=== PATIENT | male | born 1960 | race Caucasian/White ===

== ENCOUNTER 2016-12-02 14:46 | Inpatient (IN) | payer OTHER, MEDICARE ==
[~2016-12-02] VITALS: Ht 195.6 cm; Wt 108.9 kg
--- NOTE | 2016-12-02 15:08 | NUR ---
PT TO ED WITH SISTER FOR C/O ? R FOOT INFECTION. PT IS BEING FOLLOWED BY VISITING NURSE AND THINKS PT MAY HAVE INFECTION. PT DENIES ANY PAIN TO RIGHT FOOT. 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 AFEBRILE.
--- NOTE | 2016-12-02 15:53 | ED ANKLE/FOOT INJURY COMPLAINT ---
History of Present Illness General Chief Complaint: Lower Extremity Problems Stated Complaint: RIGHT FOOT ?INFECTION Source: patient Exam Limitations: no limitations Vital Signs & Intake/Output Vital Signs & Intake/Output Vital Signs Date Time Temp Pulse Resp B/P Pulse O2 O2 Flow FiO2 Ox Delivery Rate 12/02 1503 97.4 88 20 137/76 97 Room Air Allergies Coded Allergies: erythromycin base (UNKNOWN 12/02/16) Reconcile Medications Alprazolam 0.5 MG TABLET 1 TAB PO Q4-6H PRN ANXIETY (Reported) Atazanavir Sulfate (Reyataz) 300 MG CAPSULE 1 CAP PO QAM ANTIVIRAL (Reported) with food Atazanavir Sulfate (Reyataz) 300 MG CAPSULE 1 CAP PO QAM ANTIVIRAL (Reported) with food Gabapentin 300 MG CAPSULE 1 CAP PO TID UNKNOWN (Reported) Lamivudine (Epivir) 150 MG TABLET 1 TAB PO DAILY ANTIVIRAL (Reported) Oxycodone HCl (Oxycodone HCl ER) 40 MG TAB.ER.12H 1 TAB PO Q12H PAIN ( Reported) Oxycodone HCl 30 MG TABLET 1 TAB PO Q4-6H PRN PAIN (Reported) Ritonavir (Norvir) 100 MG CAPSULE 1 CAP PO DAILY ANTIVIRAL (Reported) Trazodone HCl 100 MG TABLET 2 TAB PO QPM UNKNOWN (Reported) Triage Note: PT TO ED WITH SISTER FOR C/O ? R FOOT INFECTION. PT IS BEING FOLLOWED BY VISITING NURSE AND THINKS PT MAY HAVE INFECTION. PT DENIES ANY PAIN TO RIGHT FOOT. 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 AFEBRILE. Triage Nurses Notes Reviewed? yes HPI: 56-year-old male comes into emergency room with open wound to right foot this been going on for a long time ago worse over the past week. Patient reports that he was getting it managed by wound care in-house and then his significant other was taking care of it. Wound got progressively worse over the past week with a new nurse. Foul-smelling discharge. Denies any fevers. Patient has a history of HIV. Nothing seems to make the symptoms better or worse. Denies any other associated symptoms. Past History Travel History Traveled to [place] past 21 day No Medical History Any Pertinent Medical History? see below for history Musculoskeletal: BACK ISSUES Blood Disorders: HIV Surgical History Surgical History: [facility] Psychosocial History What is your primary language Samoan Tobacco Use: Current Daily Use Daily Tobacco Use Amount/Type: => 5 Cigarettes daily ETOH Use: denies use Illicit Drug Use: denies illicit drug use Family History Hx Contributory? No Review of Systems Review of Systems Constitutional: Reports: no symptoms. EENTM: Reports: no symptoms. Respiratory: Reports: no symptoms. Cardiovascular: Reports: no symptoms. GI: Reports: no symptoms. Genitourinary: Reports: no symptoms. Musculoskeletal: Reports: see HPI. Skin: Reports: see HPI. Neurological/Psychological: Reports: no symptoms. Hematologic/Endocrine: Reports: no symptoms. Immunologic/Allergic: Reports: no symptoms. All Other Systems: Reviewed and Negative Physical Exam Physical Exam General Appearance: well developed/nourished, mild distress, foul smell Head: atraumatic Eyes: Bilateral: normal appearance. Ears, Nose, Throat: normal ENT inspection, hearing grossly normal Neck: normal inspection Cardiovascular/Respiratory: no respiratory distress Back: normal inspection Leg/Knee/Thigh Left: [facility] Foot Right: open wound right foot ( 6 cm by 6 cm) ,foul-smelling discharge, some warmth to the foot, located over the Neuro/Vascular: cool skin, skin shiny, Psychiatric: awake, alert, oriented x 3 Skin: intact, normal color, warm/dry Progress Differential Diagnosis: fracture, dislocation, sprain, contusion, osteomyelitis, cellulitis Plan of Care: Orders Procedure Date/time Status Misc Message 12/02 172 Active ED Holding Orders 12/02 1727 Active Admit to inpatient 12/02 1727 Active Vital Signs 12/02 172 Active Code Status 12/02 172 Active Patient Data 12/02 1725 Active BLOOD CULTURE 12/02 1553 Active WESTERGREN SED RATE 12/02 1553 Active C-REACTIVE PROTEIN 12/02 1553 Complete COMPREHENSIVE METABOLIC PANEL 12/02 1553 Complete CBC WITHOUT DIFFERENTIAL 12/02 1553 Active Current Medications Sig/Puma Start time Last Medication Dose Stop Time Status Admin Sodium Chloride 1,000 ML ONCE ONE 12/02 1730 AC (Normal Saline 0.9%) 12/03 0009 Ampicillin Sodium/ 3,000 MG ONCE ONE 12/02 1715 CAN Sulbactam Sodium 12/02 1744 (Unasyn) Sodium Chloride 100 ML (Normal Saline 0.9%) Laboratory Tests 12/02/16 1602: Anion Gap 11, Estimated GFR 27 L, BUN/Creatinine Ratio 10.4, Glucose 107 H, Calcium 8.7, Total Bilirubin 1.4 H, AST 39, ALT 28, Alkaline Phosphatase 95, C- Reactive Prot, Quant 1.4 H, Total Protein 8.0, Albumin 3.5, Globulin 4.5 H, Albumin/Globulin Ratio 0.8 L, CBC w Diff NO MAN DIFF REQ, RBC 4.13 L, MCV 101.9 H, MCH 34.4 H, RDW 16.3 H, MPV 8.0, Gran % 57.0, Lymphocytes % 33.1, Monocytes % 7.5, Eosinophils % 2.0, Basophils % 0.4, Absolute Granulocytes 3.7, Absolute Lymphocytes 2.2, Absolute Monocytes 0.5, Absolute Eosinophils 0.1, Absolute Basophils 0, PUBS MCHC 33.8, ESR Westergren Pending Microbiology 12/02 1632 BLOOD: Blood Culture - RECD 12/02 1602 BLOOD: Blood Culture - RECD Diagnostic Imaging: Viewed by Me: Radiology Read. Discussed w/RAD: Radiology Read. Radiology Impression: SERVICE DATE: 12/02/16 EXAM TYPE: RAD - XRY-ANKLE 3 OR MORE VIEWS R; XRY-FOOT COMPLETE, R EXAMINATION: 1. RIGHT FOOT. 2. RIGHT ANKLE. CLINICAL INFORMATION: Open wound right foot. Swelling. Pain. Concern for osteomyelitis. COMPARISON: None. TECHNIQUE: 1. Right foot. 3 views 2. Right ankle. 3 views. FINDINGS: 1. Right foot. No focal bone lesion. No bone destruction. No periosteal reaction. No radiographic evidence for osteomyelitis. No radiopaque foreign body or air in the soft tissues of the foot. 2. Right ankle. No focal bone lesion. No periosteal reaction. No radiographic evidence for osteomyelitis. Joint space is maintained. IMPRESSION: 1. Right foot. No acute abnormality. No evidence of osteomyelitis. 2. Right foot. No acute abnormality. No evidence of osteomyelitis. If clinical concern remains consider MRI. Departure Departure Disposition: STILL A PATIENT Condition: Stable Clinical Impression Primary Impression: Acute renal failure Secondary Impressions: Cellulitis of right foot, Open wound of foot Referrals: DIANA WHITT MD (PCP/Family) Departure Forms: Customer Survey General Discharge Information Admission Note Spoke With: JUAN SILVA MD Documentation of Exam: Documentation of any treatments & extenuating circumstances including Concerns Regarding Discharge (functional status, medication knowledge or non-compliance, living conditions, etc.) that warrant an admission rather than observation: Patient will require wound care. Likely wound debridement. Podiatry consultation. Possibly MRI of foot. Patient will likely end up requiring IV antibiotics. IV fluids. Renal consultation.
[2016-12-02 16:17] LABS: ABSOLUTE BASOPHIL COUNT 0 /CUMM (0.0-0.2); ABSOLUTE EOSINOPHIL COUNT 0.1 /CUMM (0.0-0.7); ABSOLUTE GRANULOCYTE CT 3.7 /CUMM (1.4-6.5); ABSOLUTE LYMPH COUNT 2.2 /CUMM (1.2-3.4); ABSOLUTE MONOCYTE COUNT 0.5 /CUMM (0.10-0.60); BASOPHIL % 0.4 % (0.0-2.0); HEMATOCRIT 42.1 % (42-52); MEAN CORPUSCULAR HGB 34.4 PG (27.0-31.0); MEAN CORPUSCULAR HGB CONC 33.8 G/DL (33.0-37.0); MEAN CORPUSCULAR VOLUME 101.9 FL (80.0-94.0); PLATELET COUNT 150 /CUMM (130-400); RBC DISTRIBUTION WIDTH 16.3 % (11.5-14.5); RED BLOOD CELL CT 4.13 /CUMM (4.70-6.10); WHITE BLOOD CELL COUNT 6.5 /CUMM (4.8-10.8)
--- NOTE | 2016-12-02 16:17 | NUR ---
56 YEAR OLD MALE TO ER WITH HIS FAMILY FOR EVALUATION OF WOUND TO HIS R HEEL, PT HAS HISTORY OF MRSA TO LLE AND HAD A BKA , PT DENIES HISTORY OF DIABETES AND STATES THAT HE GETS WOUNDS DUE TO HIS HIV. PT NOTED WITH DRESSING IN PLACE TO R FOOT, WITH YELLOW DRAINAGE AND STRONG FOUL ODOR , WHEN DRESSING REMOVED PT NOTED WITH STAGE 4 WOUND , 6CM X 6CM AND SKIN DRY AND FLAKING AROUND IT, FAMILY STATES THAT A VISITING NURSE HAS BEEN COMING OUT TO DO DRESSING CHANGES AND DID NOT SAY ANYTHING WAS WRONG WITH THE WOUND. PT UNSURE OF THE MEDS THAT HE TAKES AT HOME BUT STATES THAT HE TAKES ALL HIS MEDS ORDERED. [facility] CALLED AT THIS TIME TO REQUEST THEY FAX OVER A LIST OF PTS MEDS AND DOSES
--- NOTE | 2016-12-02 16:35 | NUR ---
LAV SENT TO LAB
--- NOTE | 2016-12-02 17:22 | RADIOLOGY REPORT ---
EXAMINATION: 1. RIGHT FOOT. 2. RIGHT ANKLE. CLINICAL INFORMATION: Open wound right foot. Swelling. Pain. Concern for osteomyelitis. COMPARISON: None. TECHNIQUE: 1. Right foot. 3 views 2. Right ankle. 3 views. FINDINGS: 1. Right foot. No focal bone lesion. No bone destruction. No periosteal reaction. No radiographic evidence for osteomyelitis. No radiopaque foreign body or air in the soft tissues of the foot. 2. Right ankle. No focal bone lesion. No periosteal reaction. No radiographic evidence for osteomyelitis. Joint space is maintained. IMPRESSION: 1. Right foot. No acute abnormality. No evidence of osteomyelitis. 2. Right foot. No acute abnormality. No evidence of osteomyelitis. If clinical concern remains consider MRI.
[2016-12-02] MEDS ORDERED: OXYCODONE HCL E40 MG PO (17:25)
[2016-12-02] MEDS ORDERED: OXYCODONE HCL30 M1 PO (17:28)
[2016-12-02] MEDS ORDERED: ALPRAZOLAM0.5 M4 PO (17:28)
[2016-12-02] MEDS ORDERED: TRAZODONE HCL100 M1 PO (17:29)
[2016-12-02] MEDS ORDERED: GABAPENTIN300 M2 PO (17:31)
[2016-12-02] MEDS ORDERED: NORVIR100 M2 PO (17:32)
[2016-12-02] MEDS ORDERED: EPIVIR150 MG PO (17:32)
[2016-12-02] MEDS ORDERED: REYATAZ300 MG PO (17:33)
[2016-12-02] MEDS ORDERED: ABACAVIR300 MG PO (17:37)
[2016-12-02] MEDS ORDERED: LACTULOSE10 GM/153 PO (17:38)
--- NOTE | 2016-12-02 18:04 | History & Physical ---
ALYSSIA [facility] 12/02/16 1803: General Information and HPI MD Statement: I have seen and personally examined DEIRDRE STEINER JR and documented this H&P. The patient is a 56 year old M who presented with a patient stated chief complaint of right foot ulcer pain and discharge. Source of Information: patient, family, old records Exam Limitations: no limitations, unable to give history, clinical condition History of Present Illness: Mr Steiner s a 56-year-old gentleman with past medical history of left below-knee amputation for MRSA infection in 2000, Anxiety, HIV (currently on ritonavir], hepatitis B and a history of chronic ulcers who presented to the emergency department on 12/02/2016 with right foot ulcer which has been worsening over the last week. The patient has had this ulcer for the last 3 months. 2 months ago patient was recently sent home from [facility] and has had a visiting nurse visits every other day. Approximately 3 weeks ago the patient's sister reported that she looked at the ulcer on the patient's right foot and noticed that it was dry, necrotic however had no signs of infection or any drainage present. Last week on Friday11/29/2016 the visiting nurse called the sister the patient and reported that this foot ulcer had now began to get discolored and drain purulent material. The cyst of the patient received this message yesterday and subsequently brought the patient to the emergency department today for additional workup and care. Owing to a history of extensive back surgery the patient does self catheterize on a daily basis. The sister reports that the patient ran out of catheters and subsequently had multiple episodes of urinary incontinence. The patient denies any fever, chills, nausea, vomiting although states that over the last 2 weeks he has continued to feel lethargic and malaise. He sister reports that the patient has Had a decrease in energy. Part of the medical history was obtained in correlation and combination from the patient's sister Norah who brought him into the emergency department. Allergies/Medications Allergies: Coded Allergies: erythromycin base (UNKNOWN 12/02/16) Home Med list Abacavir Sulfate (Abacavir) 300 MG TABLET 2 TAB PO DAILY ANTIVIRAL (Reported) Alprazolam 0.5 MG TABLET 1 TAB PO Q4-6H PRN ANXIETY (Reported) Atazanavir Sulfate (Reyataz) 300 MG CAPSULE 1 CAP PO QAM ANTIVIRAL (Reported) with food Gabapentin 300 MG CAPSULE 1 CAP PO TID UNKNOWN (Reported) Lactulose 10 GRAM/15 ML SOLUTION 15 ML PO EOD PRN UNKNOWN (Reported) Lamivudine (Epivir) 150 MG TABLET 1 TAB PO DAILY ANTIVIRAL (Reported) Oxycodone HCl (Oxycontin) 40 MG TAB.ER.12H 1 TAB PO BID CHRINIC PAIN ( Reported) Oxycodone HCl 30 MG TABLET 1 TAB PO Q4-6H PRN PAIN (Reported) Ritonavir (Norvir) 100 MG CAPSULE 1 CAP PO DAILY ANTIVIRAL (Reported) Trazodone HCl 100 MG TABLET 2 TAB PO QPM UNKNOWN (Reported) Compliance With Home Meds: POOR Past History Travel History Traveled to [place] past 21 day No Medical History Musculoskeletal: BACK ISSUES Blood Disorders: HIV Active MRSA Infection: No Isolation History: Contact Surgical History Surgical History: LBKA Past Family/Social History Psychosocial History Where do you live? Home Who Do You Live With? self Services at Home: Nursing Primary Language: South African Smoking Status: Heavy Tobacco Smoker ETOH Use: denies use Illicit Drug Use: denies illicit drug use Functional Ability ADLs Independent: dressing, eating, toileting, bathing. Ambulation: independent IADLs Independent: shopping, housework, finances, food prep, telephone, transportation , medication admin. Review of Systems Review of Systems Constitutional: Reports: see HPI, malaise, weakness. Denies: chills, diaphoresis, fever. EENTM: Reports: blurred vision, double vision, visual changes (Recent Cataract on the Left), eye pain. Cardiovascular: Denies: chest pain, edema, orthopena, palpitations. Respiratory: Reports: cough, sputum production. Denies: hemoptysis, orthopnea, short of breath. GI: Reports: abdominal pain. Denies: bloating, constipation, diarrhea, distention, bowel incontinence, melena, nausea, bloody stool, changes in stool, vomiting. Genitourinary: Reports: see HPI, pain. Denies: discharge, dysuria, frequency. Exam & Diagnostic Data Last 24 Hrs of Vital Signs/I&O Vital Signs Date Time Temp Pulse Resp B/P Pulse O2 O2 Flow FiO2 Ox Delivery Rate 12/02 2056 97.3 86 18 120/84 96 Nasal 2.0L Cannula 12/03 1831 97.0 88 18 113/73 95 Nasal 2.0L Cannula 12/02 1831 97.1 86 16 90/72 95 Nasal 2.0L Cannula 12/02 1503 97.4 88 20 137/76 97 Room Air Intake & Output 12/02 1600 12/02 0800 12/02 0000 Intake Total Output Total Balance Patient 108.862 kg Weight Physical Exam General Appearance Alert, Oriented X3, Mild Distress, Patient was dhaval somnolent Skin No Rashes, No Breakdown HEENT PERRLA, Left Eye Cataract, Mucous Membranes Dry Neck Supple Lymphatic Cervical nl Cardiovascular Regular Rate, Normal S1, Normal S2 Lungs Decreased Breath Sounds Bilaterally Abdomen Normal Bowel Sounds, Soft, No Tenderness Neurological Normal Speech, Sensation Intact Extremities No Edema, RIght Foot Ulcer. Approximately 6 cm X 6 cm. Right Femoral Ulcred 2 cm X 4 cm., Back Scar approximately 12 cm. Non Tender. Thoracic /Lumbar Region Reproductive (MALE) Bilaterral Inner Thigh Excoriations. Erythema and tenderness Last 24 Hrs of Labs/Attila: Laboratory Tests 12/02/162044: Hemoglobin A1c Pending, Lactic Acid 1.5, HIV 1&2 RNA (PCR) Pending, Methadone Screen Pending, Barbiturate Screen Pending, Ur Phencyclidine Scrn Pending, Amphetamines Screen Pending, U Benzodiazepines Scrn Pending, Urine Cocaine Screen Pending, Urine Cannabis Screen Pending, Urine Color STRAW, Urine Clarity TURBD H, Urine pH 6.0, Ur Specific [place] 1.025, Urine Protein 100 H, Urine Ketones NEG, Urine Nitrite POS H, Urine Bilirubin NEG, Urine Urobilinogen 0.2, Ur Leukocyte Esterase LARGE H, Ur Microscopic SEDIMENT EXAMINED, Urine WBC PACKD H, Micro UA Comment MORE INFO: H, Urine Hemoglobin MOD H, Urine Glucose NEG 12/02/16 1939: Methadone Screen Cancelled, Barbiturate Screen Cancelled, Ur Phencyclidine Scrn Cancelled, Amphetamines Screen Cancelled, U Benzodiazepines Scrn Cancelled, Urine Cocaine Screen Cancelled, Urine Cannabis Screen Cancelled, Urine Color Cancelled, Urine Clarity Cancelled, Urine pH Cancelled, Ur Specific [place] Cancelled, Urine Protein Cancelled, Urine Ketones Cancelled, Urine Nitrite Cancelled, Urine Bilirubin Cancelled, Urine Urobilinogen Cancelled, Ur Leukocyte Esterase Cancelled, Ur Microscopic Cancelled, Urine Hemoglobin Cancelled, Urine Glucose Cancelled 12/02/16 1602: Anion Gap 11, Estimated GFR 27 L, BUN/Creatinine Ratio 10.4, Glucose 107 H, Calcium 8.7, Total Bilirubin 1.4 H, Direct Bilirubin 0.7 H, AST 39, ALT 28, Alkaline Phosphatase 95, C-Reactive Prot, Quant 1.4 H, Total Protein 8.0, Albumin 3.5, Globulin 4.5 H, Albumin/Globulin Ratio 0.8 L, Vitamin B12 847, Folate 8.4, TSH 0.884, CBC w Diff NO MAN DIFF REQ, RBC 4.13 L, MCV 101.9 H, MCH 34.4 H, RDW 16.3 H, MPV 8.0, Gran % 57.0, Lymphocytes % 33.1, Monocytes % 7.5, Eosinophils % 2.0, Basophils % 0.4, Absolute Granulocytes 3.7, Absolute Lymphocytes 2.2, Absolute Monocytes 0.5, Absolute Eosinophils 0.1, Absolute Basophils 0, PUBS MCHC 33.8, ESR Westergren 83 H, Hepatitis A IgM Ab Pending, Hep Bs Antigen Pending, Hep B Core IgM Ab Conf Pending, Hepatitis C Antibody Pending Microbiology 12/02 1632 BLOOD: Blood Culture - RECD 12/02 1602 BLOOD: Blood Culture - RECD Assessment/Plan Assessment: This is a 56-year-old gentleman with extensive past medical history was presented with chronic right lower extremity ulcer, which has become purulent and draining over the last 48-72 hours. Chronic right heel ulcer. Initial x-ray ruled out osteomyelitis however if ESR is elevated consider MRI for additional sensitivity and specificity imaging study. Consider podiatry consult in a.m, patient may require debridement. Consider infectious disease consult in a.m, if patient is febrile. Wound consultation for recommendations on adequate wound care. Maintain patient off antibiotics for now. If patient becomes febrile or has no elevated white cell count consider broad-spectrum antibiotic coverage likely vancomycin. #Chronic back pain The patient who does have a reported chronic back pain needs to be adequately managed on home pain medications. Confirm medications in a.m. Monitor blood cultures. If positive for staph aureus consider potential infection of vertebral body due to hematogenous spread. If patient is positive forostemyleitis may require 6 weeks of antibiotic coverage. #Altered mental status Likely due to medication versus drugs of abuse, versus acute infectious process occurring. UA and U tox. Hold all narcotic pain medications due to decreased mentation and somnolence. Follow-up ammonia level. Initial lactic acid was Acute kidney injury Likely due to decreased by mouth intake. Continue aggressive hydration with normal saline. BEP in a.m. If creatinine fails to improve consider nephrology consult. On admission the patient did have a [place] catheter. Consider Mcgregor catheter. Was patient more stable can consider straight cath protocol. History of cough Lower respiratory culture Incentive spirometer. TRC nebs. Chest x-ray to rule out atelectasis versus consolidation versus intra- pulmonology pathology. Consider pulmonology consult in a.m. if above imaging studies are Suggestive for infection. History of anxiety Continue alprazolam 0.5 mg. Previous multiple hospitalizations a year. Obtain records from [place] in a.m. Confirm medications in a.m. from [facility]. DVT prophylaxis Heparin subcutaneous Code full code As Ranked By This Provider Problem List: 1. Acute renal failure 2. Open wound of foot 3. Cellulitis of right foot 4. HIV (human immunodeficiency virus infection) Core Measures/Miscellaneous Acute Coronary Syndrome ACS Diagnosis: No Cerebrovascular Accident CVA/TIA Diagnosis: No Congestive Heart Failure CHF Diagnosis: No Venous Thromboembolism VTE Risk Factors: Age > 40 No Mech VTE prophylaxis d/t: Amputee No VTE Pharm Prophylaxis d/t: No contraindications, Renal impairment VTE Diagnosis: No VTE Type: NONE VTE Confirmed by (Test): NONE Severe Sepsis Severe Sepsis Present: No Septic Shock Septic Shock Present: No Miscellaneous Documentation Attending Case Discussed With: WAN SANDOVAL MD Primary Care Physician: DIANA WHITT MD Patient sees these Specialists NA Level of Patient Care: General Medicine SRI SINGLETON 12/02/16 1823: Resident Review Statement Resident Statement: examined this patient, discussed with agriculture internship, agreed with agriculture internship, discussed with family, reviewed EMR data (avail), discussed with nursing , discussed with case mgmt, reviewed images, amended to note Other Findings: 56-year-old male with a past medical history of HIV, hepatitis C status post treatment with Harvoni, chronic back pain status post back surgery, history of osteomyelitis status post below-knee amputation of the left knee presented to the ED with chief complaint of infection in his right heel. According to the patient and his sister, Mr. Steiner got discharged from [facility] in [place] about 3 months ago. Apparently last spring, he was evaluated for an ulcer on his right heel for osteomyelitis RT heel at [facility]. According to the sister he underwent a bone biopsy at the elbow at that time and it was deemed that he did not have ostial. However he ended up getting chronic ulcer after they drilled the bone far deeply. That wound was healing pretty nicely since. She states that her brother move to the [place] about 3 months ago and had a visiting nurse come to his house every other day. She last saw this wound 2 weeks ago at which time it was dry with a scab on it and the surrounding area had a white scab that was peeling off. This past Friday she received a call from the patient's visiting nurse stating that the ulcer was draining pus and had a bad odor to it. Patient denies any fever, chills, history of fall or hurting his leg. The sister however does state that Mr. Heard fell about a week and a half ago and had a rug burn on his lateral right thigh. Of note Mr. Heard has not been feeling himself for about 2 weeks now he states that he is increasingly tired and somnolent. As far as his HIV, he's been followed up by her primary care physician and last saw her about a month ago and was told that his blood work and everything looked normal. He also self catheterizes himself most likely secondary to back surgery that he had about 21 years ago. According to the sister Mr. Heard is not followed up by any vascular surgeon and does not have any vascular issues. Past surgical history is pertinent for a left below-knee amputation secondary to osteomyelitis from MRSA, back surgery about 21 years ago. Family history is pertinent for stroke and heart attack in his father at the age of 68 as well as massive heart attack in his mother at the age of 61. He is allergic to azithromycin Social history is pertinent for smoking cigarettes 1 pack a day. He denies illicit drug use and/or ethanol use. Of note patient was admitted at [facility] last year for a kidney infection details of which are unknown however he denies having any procedures on her stents placed. He also was seen for cataract surgery for his left eye and has a length placed which needs to be removed by an invoice control clerk. Physical exam he is lethargic, drowsy but arousable. HEENT reveals corneal haziness on the left in the left eye, right pupil is reactive to light but has Fredy is. He also has dry mucous membranes. Examination of the neck did not reveal any JVD or tobacco lymphadenopathy. Cardiovascular exam revealed normal S1, S2 2, regular pulse no murmurs appreciated. Respiratory exam revealed chest clear to auscultation bilaterally with decreased breath sounds bilaterally, no rales crackles or rhonchi appreciated. Abdominal exam was benign with abdomen soft, nontender, nondistended however there was fungal infection in the inguinal folds. Examination of the left lower extremity revealed below-knee amputation as well as 4 cm ulcer located around the left posterior-lateral aspect of the left . Examination of the right lower extremity revealed 2 stage II ulcers located along the posterior-lateral aspect of the right thigh measuring about 4 cm x 5 cm with purulent drainage from one of the ulcers and a scab on the other 1. Examination of the right foot revealed a 6 cm x 6 cm purulent draining chronic ulcer that is also foul-smelling. There is chronic venous stasis changes in the right lower extremity with multiple areas of excoriation. There isn't other healed decubitus ulcer located along the sacrum, along with of 5 cm x 4 cm healed decubitus ulcer located along the lateral aspect of the gluteal area. Labs were pertinent for an H&H of 14.2/42.1, normal white blood cell count of 6500, elevated MCV of 101.9 and a platelet count of 150,000. Serum chemistries revealed a sodium of 142/potassium of 3.6, BUN 26, creatinine 2.5 going through previous records reveals that his creatinine is around 1.5-1.6. LFTs were remarkable for an elevated total bili 1.4, AST/ALT of 39/28 and alkaline phosphatase of 95. C-reactive protein elevated to 1.4. X-ray of the right foot and ankle did not show any evidence of osteomyelitis. In the ER he received a normal saline bolus. Assessment and plan #Chronic right heel ulcer Most likely secondary to osteomyelitis from ??PVD Hunt off antibiotics for now Bone scan in morning and podiatry consult with Dr. George. Consider ID consult in a.m. Wound consult in a.m. Optimize pain management with morphine 2 mg every 4 hours when necessary Follow-up blood cultures 2 Consider getting an US Doppler of lower extremity #Altered mental status Most likely secondary to osteomyelitis versus overdosage of pain medications versus urinary tract infection versus pneumonia given patient has cough Check UA, U tox Follow-up ammonia level and lactic acid level Follow-up chest x-ray, lower respiratory culture #History of HIV and hepatitis C follow-up hepatitis panel, PCR for HIV and/or viral load. Medications need to be confirmed for his HIV. Please reconcile meds in a.m. #Macrocytic anemia We'll check for TSH, B12 and folic acid #AK I on CKD Most likely secondary to decreased by mouth intake versus HIV medications versus obstructive uropathy Hydrate with IV fluids for now and follow-up BEP in a.m. Place him on straight catheterization Protocol [place] renal ultrasound if BEP fails to improve. Avoid nephrotoxic agents for now. Strict is and os #Fungal skin infection On nystatin #DVT prophylaxis Heparin 5000 international units 3 times a day subcutaneous Diet Regular CODE STATUS Full code JAIME [facility]LE, [facility] 12/02/16 1850: Attending MD Review Statement Attending Statement Attending MD Statement: examined this patient, discuss w/resident/PA/WEB CONTENT EXECUTIVE, agreed w/resident/PA/WEB CONTENT EXECUTIVE Attending Assessment/Plan: 56 yo M smoker with h/o HIV on Ritonavir+Atazanavir+Abacavir, Hep C s/p Harvoni Rx, Left BKA s/p MRSA osteomyelitis (2000), CKD stage 3A, chronic back pain on opiates, chronic nonhealing ulcer to right heel, is brought in for evaluation of worsening infection of the right heel. According to sister, the right heel wound has been evaluated at [facility] (2015), negative for osteomyelitis and was treated with antibiotics after debridement. This was slowly heeling, however in the past 3 days the visiting RN noticed foul smelling discharge/ pus draining from the wound. Over past 2 weeks, patient has been weak, lethargic, poor appetite and not keeping himself hydrated. 1 week ago, he fell while transferring himself to the chair with inability to get himself up. He dragged himself on the rug causing multiple open wounds to his right and left lateral thigh and decubiti. Patient reports, he self- catheterizes as he developed multiple urethral strictures (? unclear why) and is mostly incontinent. C/o occasional cough with an episode of spitting up thick phlegm. Denies fever or chills. Vitals stable except for one episode of hypotension. Exam: lethargic, very dry mucous membranes, left eye corneal haziness ?lens+, Chest clear anteriorly, Heart S1S2 regular, Abd soft, NT. Extensive fungal rash noted to bilateral groin areas. Stage 4 right heel ulcer 6 x 6 cm draining minimal purulent discharge, RLE chronic venous stasis changes with trace edema. Left BKA. Multiple other stage 2 wounds as noted above. Difficult to palpate peripheral pulses. Labs: No leukocytosis, macrotycosis, ESR 83, BUN 26, creat 2.5 (1.3-1.5), glucose 107, T. Bili 1.4, AST/ALT normal, CRP 1.4, lactic acid and ammonia levels are normal. UA turbid, large LE, positive nitrite, packed WBC, Utox positive for Benzos. Right foot Xray no e/o osteomyelitis. CXR shows hypoinflation. Subtle airspace opacities within the bilateral lung bases, left greater than right. 1. Chronic nonhealing right heel ulcer needs further evaluation to rule out osteomyelitis. GM admit, panculture, IV fluids, plan for MRI or bone scan in AM, Podiatry consult, monitor off antibiotics in anticipation of possible bone biopsy/ debridement. Eventual ID consult needed. Would obtain RLE arterial doppler. Pain management with opiates. 2. Lethargy, altered mentation 2/2 ?metabolic vs. Septic encephalopathy vs. dehydration. His UA is positive but he denies any urinary symptoms, however he self catheterizes and is often incontinent. CXR is s/o airspace opacities b/l lung bases. Given the patient is not hypoxic, is afebrile and has no leukocytosis, will watch off antibiotics overnight. Consider initiation of antibiotics based on cultures or clinical condition. Obtain baseline EKG. Check TSH, free T4, B12, folic acid, HIV and hepatitis panel. Assess viral load. Resume all HIV meds after pharmacy confirmation. 3. ABDIRSAHID on CKD. IV hydration. Reassess renal functions. 4. Multiple wounds 2/2 recent fall. Obtain wound consult. Local nystatin application to fungal rash on groin. DVT ppx Hep SC. Full code.
--- NOTE | 2016-12-02 18:33 | NUR ---
PT NOTED TO BE VERY SLEEPY BARELY ABLE TO KEEP HIS EYES OPEN , O2 SAT 89 % ON RA, PT AWAKE TO VERBAL STIMULI, O2 SAT INCREASED TO 94 % ON RA, PT STARTED TO FALL BACK TO SLEEP AND O2 SAT DROPPED AGAIN , PT PLACED ON 2L VIA NC AND SATURATION INCREASED TO 95 % , BP 90/52 MD AWARE AND FLUIDS SWITCHED TO WIDE OPEN, PT STATES THAT HE STRAIGHT CATHS HIMSELF AT HOME WITH SPEACIAL CATHETERS DUE TO SCAR TISSUE, NOTED WITH DEPENDS ON AND PT NOTED TO BE INC OF A LARGE AMOUNT OF URINE , WHEN THIS NURSE WAS CHANGING PT IT WAS NOTED THAT PTS BILATERAL GROIN AREAS ARE MOIST AND ESCORIATED, AREAS WIPED AND DRIED, PT ALSO NOTED WITH 4X2 OPEN AREA TO HIS L THIGH AND ALSO 4X2 TO HIS OUTER THIGH. R OUTER THIGH HAD DRESSING IN PLACE. PT STATES THAT THE VISITING NURSE PLACED IT.ALSO NOTED WITH MULTIPLE HEALED WOUNDS TO BUTTOCKS AND BILATERAL THIGHS. BP AT THIS TIME 113/73. [place] CATH PLACED AT THIS TIME. HOUSE STAFF AT BEDSIDE. DRESSING PLACED TO R HEAL.
--- NOTE | 2016-12-02 18:44 | NUR ---
Emergency Dept UC Admit Note: To be admitted to [facility] by MAX with CELLULITIS as the diagnosis, to [id number] location. Nursing Plastics Fabricator And Assembler and admitting notified 12/02/16 at [id number]
--- NOTE | 2016-12-02 19:32 | NUR ---
PIÑA PLACED PER HOUSE STAFF
--- NOTE | 2016-12-02 19:36 | Admission Certification ---
Admission Certification Certification Statement - As attending physician, I certify that at the time of - admission, based on clinical presentation, severity of - symptoms, need for further diagnostic testing and - therapeutic interventions, and risk of adverse outcomes - without in-hospital treatment, in my clinical assessment, - this patient requires an acute hospital stay for a minimum - of two nights or longer. I have also considered psychsocial - factors such as support system, advanced age, financial - issues, cognitive issues, and failed out-patient treatments, - past re-admission history, safety of patient, and lack of - compliance as applicable. Specific rationale supporting this admission is: Right heel nonhealing ulcer, needs evaluation for osteomyelitis. Acute on CKD.
--- NOTE | 2016-12-02 20:23 | RADIOLOGY REPORT ---
EXAMINATION: XR PORTABLE CHEST CLINICAL INFORMATION: Cough. Evaluate for pneumonia. COMPARISON: None. TECHNIQUE: Portable AP view of the chest was obtained. FINDINGS: Single AP view of the chest demonstrates pulmonary hypoinflation. There are subtle patchy airspace opacities within the bilateral lung bases, left greater than right. No pleural effusions or ascites are identified. Cardiomediastinal contours are within normal limits. Soft tissues appear unremarkable. No acute osseous abnormality is identified. IMPRESSION: Pulmonary hypoinflation. Subtle airspace opacities within the bilateral lung bases, left greater than right. This could reflect infection in the appropriate clinical setting.
--- NOTE | 2016-12-02 20:33 | NUR ---
REPORT GIVEN TO ELLIE ALVAREZ ON 2NA.
--- NOTE | 2016-12-02 20:48 | NUR ---
TRANSPORT BOOK NOW
--- NOTE | 2016-12-02 20:56 | NUR ---
URINE TRIO SENT TO LAB. BLOOD DRAWN BY ELLIE DANIELS. 4 LAV,SANTOS,GREEN,SST,BLUE.
--- NOTE | 2016-12-02 21:05 | NUR ---
REDRAW OF AMMONIA ON ICE REQUESTED BY LAB AT THIS TIME.
[2016-12-02 21:58] VITALS: BP 140/70
--- NOTE | 2016-12-02 22:59 | NUR ---
PATIENT ALERT AND ORIENTED X 3. ADMITTED FROM ER. WOUNDS TO LEFT AND RIGHT THIGH AND ALSO RIGHT HEEL. PIÑA INTACT AND PATENT DRAINING DARK YELLOW URINE. HX OF MRSA. C/O PAIN TO LOWER BACK. WILL CONTINUE TO MONITOR.
--- NOTE | 2016-12-02 23:55 | NUR ---
SEE WOUND MEASUREMENTS IN SKIN MAN
--- NOTE | 2016-12-03 06:01 | PN- Housestaff ---
ALYSSIA DEL VALLE,[facility] 12/03/16 0600: Subjective Follow-up For: AMS Osteomyelitis Subjective: Mr Tracy was seen and examined this morning. Patient states that he feels much better and expresses the fact that he is more alert. He is also oriented X3. Patient's reports no pain from right lower extremity. He does state that his chronic back pain continues to bother him. Pain is located in the lower lumbar area. Pain is rated at a 9/10 in severity. Patient denies any fever, chills, nausea, vomiting. Review of Systems Constitutional: Reports: see HPI. Objective Last 24 Hrs of Vital Signs/I&O Vital Signs Date Time Temp Pulse Resp B/P Pulse O2 O2 Flow FiO2 Ox Delivery Rate 12/03 0000 Nasal 2.0L Cannula 12/02 2158 97.8 71 20 140/70 95 Nasal 2.0L Cannula 12/02 2136 Nasal 2.0L Cannula 12/02 2056 97.3 86 18 120/84 96 Nasal 2.0L Cannula 12/02 1832 97.0 88 18 113/73 95 Nasal 2.0L Cannula 12/02 1831 97.1 86 16 90/72 95 Nasal 2.0L Cannula 12/02 1503 97.4 88 20 137/76 97 Room Air Intake & Output 12/03 0800 12/03 0000 12/02 1600 Intake Total 210 Output Total 200 Balance 10 Intake, IV 150 Intake, Oral 60 Output, Urine 200 Patient 108.862 kg 108.862 kg Weight Physical Exam General Appearance: Alert, Oriented X3, Cooperative, No Acute Distress, Continues to appear somnolent Cardiovascular: Normal S1, Normal S2, No Murmurs Lungs: Decreased Breath Sounds Abdomen: Normal Bowel Sounds, Soft, No Tenderness Neurological: Normal Gait, Normal Speech Extremities: Right Foot Ulcer Approximately 6 cm x 6 CM. No Exposed Bone. No significatn Erythema Identified. Right Lateral thigh has and ulcer approximately 4 X 2 cm. This has been present on admission. , Left BKA Current Medications: Current Medications Sig/Puma Start time Last Medication Dose Route Stop Time Status Admin Acetaminophen 650 MG Q6P PRN 12/02 1830 AC PO Alprazolam 0.5 MG Q4 HRS NEEDED PRN 12/02 2030 AC 12/02 PO 12/09 Ampicillin Sodium/ 3,000 MG ONCE ONE 03/06 1715 CAN Sulbactam Sodium IV 12/02 1744 Sodium Chloride 100 ML Gabapentin 300 MG TID 12/03 1600 UNVr PO Heparin Sodium 5,000 UNIT Q8 12/02 2200 AC 12/03 (Porcine) SC 0508 Lactulose 20 GM DAILY PRN 12/03 1245 UNVr PO Lamivudine 150 MG DAILY 12/03 1237 UNVr PO Morphine Sulfate 2 MG Q4P PRN 12/02 1830 AC IV Non-Formulary 0 SEE ADMIN CRITERIA 12/03 1245 UNVr Medication ANY Non-Formulary 0 SEE ADMIN CRITERIA 12/03 1245 UNVr Medication ANY Non-Formulary 0 SEE ADMIN CRITERIA 12/03 1245 UNVr Medication ANY Nystatin 1 DEDRICK TID 12/02 2200 AC 12/03 TOP 0932 Oxycodone HCl 5 MG Q6P PRN 12/02 1830 AC 12/03 PO 1102 Sodium Chloride 1,000 ML Q13H 12/02 1830 AC 12/03 IV 0932 Sodium Chloride 1,000 ML ONCE ONE 12/02 1730 DC 12/02 IV 12/03 0009 1748 Trazodone HCl 200 MG QPM 12/03 2200 UNVr PO Last 24 Hrs of Lab/Attila Results Last 24 Hrs of Labs/Mics: Laboratory Tests 12/03/16 0725: Anion Gap 7, Estimated GFR 31 L, BUN/Creatinine Ratio 10.5, PT 11.8, INR 1.13, CBC w Diff NO MAN DIFF REQ, RBC 3.65 L, MCV 104.2 H, MCH 35.3 H, RDW 16.7 H, MPV 8.3, Gran % 56.3, Lymphocytes % 31.7, Monocytes % 8.4, Eosinophils % 3.0, Basophils % 0.6, Absolute Granulocytes 3.1, Absolute Lymphocytes 1.7, Absolute Monocytes 0.5, Absolute Eosinophils 0.2, Absolute Basophils 0, PUBS MCHC 33.9 12/03/16 0010: Lactic Acid 1.3 12/03/16 0010: Ammonia 14 12/02/162044: Hemoglobin A1c 5.4, Lactic Acid 1.5, HIV 1&2 RNA (PCR) Pending, Urine Opiates Screen 1959.00, Methadone Screen < 40, Barbiturate Screen < 60, Ur Phencyclidine Scrn < 6.00, Amphetamines Screen < 100, U Benzodiazepines Scrn > 800 H, Urine Cocaine Screen < 50, Urine Cannabis Screen < 5.00, Urine Color STRAW, Urine Clarity TURBD H, Urine pH 6.0, Ur Specific [place] 1.025, Urine Protein 100 H, Urine Ketones NEG, Urine Nitrite POS H, Urine Bilirubin NEG, Urine Urobilinogen 0.2, Ur Leukocyte Esterase LARGE H, Ur Microscopic SEDIMENT EXAMINED, Urine WBC PACKD H, Micro UA Comment MORE INFO: H, Urine Hemoglobin MOD H, Urine Glucose NEG 12/02/16 1939: Methadone Screen Cancelled, Barbiturate Screen Cancelled, Ur Phencyclidine Scrn Cancelled, Amphetamines Screen Cancelled, U Benzodiazepines Scrn Cancelled, Urine Cocaine Screen Cancelled, Urine Cannabis Screen Cancelled, Urine Color Cancelled, Urine Clarity Cancelled, Urine pH Cancelled, Ur Specific [place] Cancelled, Urine Protein Cancelled, Urine Ketones Cancelled, Urine Nitrite Cancelled, Urine Bilirubin Cancelled, Urine Urobilinogen Cancelled, Ur Leukocyte Esterase Cancelled, Ur Microscopic Cancelled, Urine Hemoglobin Cancelled, Urine Glucose Cancelled 12/02/16 1602: Anion Gap 11, Estimated GFR 27 L, BUN/Creatinine Ratio 10.4, Glucose 107 H, Calcium 8.7, Total Bilirubin 1.4 H, Direct Bilirubin 0.7 H, AST 39, ALT 28, Alkaline Phosphatase 95, C-Reactive Prot, Quant 1.4 H, Total Protein 8.0, Albumin 3.5, Globulin 4.5 H, Albumin/Globulin Ratio 0.8 L, Vitamin B12 847, Folate 8.4, TSH 0.884, CBC w Diff NO MAN DIFF REQ, RBC 4.13 L, MCV 101.9 H, MCH 34.4 H, RDW 16.3 H, MPV 8.0, Gran % 57.0, Lymphocytes % 33.1, Monocytes % 7.5, Eosinophils % 2.0, Basophils % 0.4, Absolute Granulocytes 3.7, Absolute Lymphocytes 2.2, Absolute Monocytes 0.5, Absolute Eosinophils 0.1, Absolute Basophils 0, PUBS MCHC 33.8, ESR Westergren 83 H, Hepatitis A IgM Ab NONREACTIVE, Hep Bs Antigen NONREACTIVE, Hep B Core IgM Ab Conf NONREACTIVE, Hepatitis C Antibody REACTIVE H Microbiology 12/03 48 LOWER RESP: Respiratory Culture - COLB 03/07 0049 LOWER RESP: Gram Stain - COLB 12/02 2045 URINE ROUT: Urine Culture - RECD 12/02 1632 BLOOD: Blood Culture - RES 12/02 1602 BLOOD: Blood Culture - RES Orders Miscellaneous Findings: IMPRESSION: Pulmonary hypoinflation. Subtle airspace opacities within the bilateral lung bases, left greater than right. This could reflect infection in the appropriate clinical setting. Assessment/Plan Assessment: This is a 56-year-old gentleman with extensive past medical history was presented with chronic right lower extremity ulcer, which has become purulent and draining over the last 48-72 hours. Chronic right heel ulcer. Initial x-ray ruled out osteomyelitis however if ESR is elevated consider MRI for additional sensitivity and specificity imaging study. ESR was elevated at 83. Patient is scheduled to go for an MRI on 12/04/2016. Consider infectious disease consult in a.m, if patient is febrile. Maintain patient off antibiotics for now. If patient becomes febrile or has no elevated white cell count consider broad-spectrum antibiotic coverage likely vancomycin. #Chronic back pain The patient who does have a reported chronic back pain needs to be adequately managed on home pain medications. Confirm medications in a.m. Monitor blood cultures. If positive for staph aureus consider potential infection of vertebral body due to hematogenous spread. If patient is positive forostemyleitis may require 6 weeks of antibiotic coverage. #Altered mental status Likely due to medication versus drugs of abuse, versus acute infectious process occurring. UA and U tox: Positive for benzodiazepines as well as opiates. Hold all narcotic pain medications due to decreased mentation and somnolence. Follow-up ammonia level:14 Initial lactic acid was 1.5. Acute kidney injury Likely due to decreased by mouth intake. Continue aggressive hydration with normal saline. BEP in a.m. creatinine this a.m. 2.2 decreased from 2.5. Patient was started on a diet this a.m. Continue to encourage by mouth intake. Repeat BEP in am. If creatinine fails to improve consider nephrology consult. On admission the patient did have a [place] catheter. Consider Mcgregor catheter. Was patient more stable can consider straight cath protocol. History of cough X-ray did show evidence of hypoinflation. Subtle airspace opacities in lung bases. Lower respiratory culture Incentive spirometer. TRC nebs. Consider pulmonology consult in a.m. if above imaging studies are Suggestive for infection. History of anxiety Continue alprazolam 0.5 mg. Previous multiple hospitalizations a year. Obtain records from [facility] in a.m. Medication list confirm this morning and updated in orders. DVT prophylaxis Heparin subcutaneous Code full code Problem List: 1. HIV (human immunodeficiency virus infection) 2. Acute renal failure 3. Open wound of foot 4. Cellulitis of right foot Pain Ratin Pain Location: Lower Back Pain Goal: Remain pain free Pain Plan: Oxycodone Morphine Sulphate Tomorrow's Labs & Rationales: CBC: Monitor White cell count in the setting of acute infection patient is currently being monitored off antibiotics. BEP: Monitor creatinine in the setting of acute kidney injury. KEO DEL VALLE,HORACIO 12/03/16 1149: Attending MD Review Statement Attending Statement Attending MD Statement: examined this patient, discuss w/resident/PA/AUTO ROLLER, agreed w/resident/PA/AUTO ROLLER, reviewed EMR data (avail), discussed with nursing, discussed with case mgmt, reviewed images, amended to note Attending Assessment/Plan: Patient seen and examined, complains of chronic back pain. Also has some pain in the right heel. Vital Signs Date Time Temp Pulse Resp B/P Pulse O2 O2 Flow FiO2 Ox Delivery Rate 12/03 06 97.4 69 18 122/74 94 Nasal Cannula 12/03 0000 Nasal 2.0L Cannula 12/02 2158 97.8 71 20 140/70 95 Nasal 2.0L Cannula 12/02 2137 Nasal 2.0L Cannula 12/02 2057 97.3 86 18 120/84 96 Nasal 2.0L Cannula 12/02 1832 97.0 88 18 113/73 95 Nasal 2.0L Cannula 12/02 1831 97.1 86 16 90/72 95 Nasal 2.0L Cannula 12/02 1503 97.4 88 20 137/76 97 Room Air on exam; aox3, nad. cv; s1,s2, rrr resp; clear abd; soft, nt, bs+ ext; no edema skin; there is a deep ulcer at right heel and a superficial ulcer at right lateral calf. Laboratory Tests 12/0325 0010 0010 Chemistry Sodium (137 - 145 mmol/L) 142 Potassium (3.5 - 5.1 mmol/L) 3.9 Chloride (98 - 107 mmol/L) 110 H Carbon Dioxide (22 - 30 mmol/L) 24 Anion Gap (5 - 16) 7 BUN (9 - 20 mg/dL) 23 H Creatinine (0.7 - 1.2 mg/dL) 2.2 H Estimated GFR (>60 ml/min) 31 L BUN/Creatinine Ratio (7 - 25 %) 10.5 Lactic Acid (0.7 - 2.1 mmol/L) 1.3 Ammonia (9 - 30 umol/L) 14 Coagulation PT (9.4 - 12.5 SEC) 11.8 INR (0.90 - 1.17) 1.13 Hematology CBC w Diff NO MAN DIFF REQ WBC (4.8 - 10.8 /CUMM) 5.5 RBC (4.70 - 6.10 /CUMM) 3.65 L Hgb (14.0 - 18.0 G/DL) 12.9 L Hct (42 - 52 %) 38.1 L MCV (80.0 - 94.0 FL) 104.2 H MCH (27.0 - 31.0 PG) 35.3 H RDW (11.5 - 14.5 %) 16.7 H Plt Count (130 - 400 /CUMM) 126 L MPV (7.4 - 10.4 FL) 8.3 Gran % (42.2 - 75.2 %) 56.3 Lymphocytes % (20.5 - 51.1 %) 31.7 Monocytes % (1.7 - 9.3 %) 8.4 Eosinophils % (0 - 5 %) 3.0 Basophils % (0.0 - 2.0 %) 0.6 Absolute Granulocytes (1.4 - 6.5 /CUMM) 3.1 Absolute Lymphocytes (1.2 - 3.4 /CUMM) 1.7 Absolute Monocytes (0.10 - 0.60 /CUMM) 0.5 Absolute Eosinophils (0.0 - 0.7 /CUMM) 0.2 Absolute Basophils (0.0 - 0.2 /CUMM) 0 PUBS MCHC (33.0 - 37.0 G/DL) 33.9 12/02 Chemistry Hemoglobin A1c (4.2 - 5.8 %) 5.4 Lactic Acid (0.7 - 2.1 mmol/L) 1.5 Serology HIV 1&2 RNA (PCR) Pending Toxicology Urine Opiates Screen (>2000 NG/ML) 1959.00 Methadone Screen (>300 NG/ML) < 40 Cancelled Barbiturate Screen (>200 NG/ML) < 60 Cancelled Ur Phencyclidine Scrn (>25 NG/ML) < 6.00 Cancelled Amphetamines Screen (>1000 NG/ML) < 100 Cancelled U Benzodiazepines Scrn (>200 NG/ML) > 800 H Cancelled Urine Cocaine Screen (>300 NG/ML) < 50 Cancelled Urine Cannabis Screen (>50 NG/ML) < 5.00 Cancelled Urines Urine Color (YEL,AMB,STR) STRAW Cancelled Urine Clarity (CLEAR) TURBD H Cancelled Urine pH (5.0 - 8.0) 6.0 Cancelled Ur Specific [place] (1.001 - 1.035) 1.025 Cancelled Urine Protein (NEG,<30 MG/DL) 100 H Cancelled Urine Ketones (NEG) NEG Cancelled Urine Nitrite (NEG) POS H Cancelled Urine Bilirubin (NEG) NEG Cancelled Urine Urobilinogen (0.1 - 1.0 EU/dl) 0.2 Cancelled Ur Leukocyte Esterase (NEG) LARGE H Cancelled Ur Microscopic SEDIMENT EXAMINED Cancelled Urine WBC (0 - 2 /HPF) PACKD H Micro UA Comment MORE INFO: H Urine Hemoglobin (NEG) MOD H Cancelled Urine Glucose (N MG/DL) NEG Cancelled 12/02 1602 Chemistry Sodium (137 - 145 mmol/L) 142 Potassium (3.5 - 5.1 mmol/L) 3.6 Chloride (98 - 107 mmol/L) 108 H Carbon Dioxide (22 - 30 mmol/L) 23 Anion Gap (5 - 16) 11 BUN (9 - 20 mg/dL) 26 H Creatinine (0.7 - 1.2 mg/dL) 2.5 H Estimated GFR (>60 ml/min) 27 L BUN/Creatinine Ratio (7 - 25 %) 10.4 Glucose (65 - 99 mg/dL) 107 H Calcium (8.4 - 10.2 mg/dL) 8.7 Total Bilirubin (0.2 - 1.3 mg/dL) 1.4 H Direct Bilirubin (< 0.4 mg/dL) 0.7 H AST (17 - 59 U/L) 39 ALT (21 - 72 U/L) 28 Alkaline Phosphatase (< 127 U/L) 95 C-Reactive Prot, Quant (<1.0 mg/dL) 1.4 H Total Protein (6.3 - 8.2 g/dL) 8.0 Albumin (3.5 - 5.0 g/dL) 3.5 Globulin (1.9 - 4.2 gm/dL) 4.5 H Albumin/Globulin Ratio (1.1 - 2.2 %) 0.8 L Vitamin B12 (239 - 931 pg/mL) 847 Folate (2.76 - 20.0 ng/mL) 8.4 TSH (0.270 - 4.200 uIU/mL) 0.884 Hematology CBC w Diff NO MAN DIFF REQ WBC (4.8 - 10.8 /CUMM) 6.5 RBC (4.70 - 6.10 /CUMM) 4.13 L Hgb (14.0 - 18.0 G/DL) 14.2 Hct (42 - 52 %) 42.1 MCV (80.0 - 94.0 FL) 101.9 H MCH (27.0 - 31.0 PG) 34.4 H RDW (11.5 - 14.5 %) 16.3 H Plt Count (130 - 400 /CUMM) 150 MPV (7.4 - 10.4 FL) 8.0 Gran % (42.2 - 75.2 %) 57.0 Lymphocytes % (20.5 - 51.1 %) 33.1 Monocytes % (1.7 - 9.3 %) 7.5 Eosinophils % (0 - 5 %) 2.0 Basophils % (0.0 - 2.0 %) 0.4 Absolute Granulocytes (1.4 - 6.5 /CUMM) 3.7 Absolute Lymphocytes (1.2 - 3.4 /CUMM) 2.2 Absolute Monocytes (0.10 - 0.60 /CUMM) 0.5 Absolute Eosinophils (0.0 - 0.7 /CUMM) 0.1 Absolute Basophils (0.0 - 0.2 /CUMM) 0 PUBS MCHC (33.0 - 37.0 G/DL) 33.8 ESR Westergren (0 - 10 MM) 83 H Serology Hepatitis A IgM Ab (NONREACTIVE) NONREACTIVE Hep Bs Antigen (NONREACTIVE) NONREACTIVE Hep B Core IgM Ab Conf (NONREACTIVE) NONREACTIVE Hepatitis C Antibody (NONREACTIVE) REACTIVE H A/P; 56 y/o M with pmh sig for left below-knee amputation for MRSA infection in 2000, Anxiety, HIV (currently on ritonavir], hepatitis B and a history of chronic ulcers, admitted with right heel nonhealing ulcer. Appreciate wound care input. We will do the dressing changes. Appreciate podiatry input. Patient needs debridement and an MRI of the foot. MRI will be scheduled for tomorrow. No antibiotics were started and patient has been watched off of antibiotics. He'll resume his HIV regimen. Continue current pain management. At home patient does take high amounts therefore if need be, Roxicodone dose can be increased according to his home dose once patient is more awake DVT prophylaxis: Heparin subcutaneous.
[2016-12-03 06:25] VITALS: BP 122/74
[2016-12-03 08:20] LABS: PT 11.8 SEC (9.4-12.5)
[2016-12-03 08:29] LABS: ABSOLUTE BASOPHIL COUNT 0 /CUMM (0.0-0.2); ABSOLUTE EOSINOPHIL COUNT 0.2 /CUMM (0.0-0.7); ABSOLUTE GRANULOCYTE CT 3.1 /CUMM (1.4-6.5); ABSOLUTE LYMPH COUNT 1.7 /CUMM (1.2-3.4); ABSOLUTE MONOCYTE COUNT 0.5 /CUMM (0.10-0.60); BASOPHIL % 0.6 % (0.0-2.0); GRANULOCYTE % 56.3 % (42.2-75.2); HEMATOCRIT 38.1 % (42-52); MEAN CORPUSCULAR HGB 35.3 PG (27.0-31.0); MEAN CORPUSCULAR HGB CONC 33.9 G/DL (33.0-37.0); MEAN CORPUSCULAR VOLUME 104.2 FL (80.0-94.0); MEAN PLATELET VOLUME 8.3 FL (7.4-10.4); PLATELET COUNT 126 /CUMM (130-400); RBC DISTRIBUTION WIDTH 16.7 % (11.5-14.5); RED BLOOD CELL CT 3.65 /CUMM (4.70-6.10); WHITE BLOOD CELL COUNT 5.5 /CUMM (4.8-10.8)
--- NOTE | 2016-12-03 08:52 | Cons- Wound Care ---
General Information and HPI Consulting Request Date of Consult: 12/03/16 Requested By: JAIME DEL VALLE,WAN Reason for Consult: Right lateral thigh ulcer right heel ulcer present on admission. History of Present Illness: This 56-year-old with multiple medical problems including HIV hepatitis be status post left BKA admitted for concerns over worsening right heel ulcer. He' s had a long-standing right pressure injury ulcer of the right heel. He was evaluated for osteomyelitis with a bone biopsy in the past which was reportedly negative as wound has deteriorated with increasing drainage. He is unaware of, getting peripheral vascular disease. He's not had recent imaging other than x- ray yesterday which was unrevealing. Allergies/Medications Allergies: Coded Allergies: erythromycin base (UNKNOWN 12/02/16) Home Med List: Abacavir Sulfate (Abacavir) 300 MG TABLET 2 TAB PO DAILY ANTIVIRAL (Reported) Alprazolam 0.5 MG TABLET 1 TAB PO Q4-6H PRN ANXIETY (Reported) Atazanavir Sulfate (Reyataz) 300 MG CAPSULE 1 CAP PO QAM ANTIVIRAL (Reported) with food Gabapentin 300 MG CAPSULE 1 CAP PO TID UNKNOWN (Reported) Lactulose 10 GRAM/15 ML SOLUTION 15 ML PO EOD PRN UNKNOWN (Reported) Lamivudine (Epivir) 150 MG TABLET 1 TAB PO DAILY ANTIVIRAL (Reported) Oxycodone HCl (Oxycodone HCl ER) 40 MG TAB.ER.12H 1 TAB PO Q12H PAIN ( Reported) Oxycodone HCl 30 MG TABLET 1 TAB PO Q4-6H PRN PAIN (Reported) Ritonavir (Norvir) 100 MG CAPSULE 1 CAP PO DAILY ANTIVIRAL (Reported) Trazodone HCl 100 MG TABLET 2 TAB PO QPM UNKNOWN (Reported) Review of Systems Review of Systems: Noncontributory Past History Travel History Traveled to [place] past 21 day No Medical History Blood Transfusion Hx: No Neurological: NONE EENT: NONE Cardiovascular: NONE Respiratory: asthma Gastrointestinal: NONE Hepatic: NONE Renal: NONE Musculoskeletal: BACK ISSUES Psychiatric: anxiety Endocrine: NONE Blood Disorders: HIV Cancer(s): NONE 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 Home Who Do You Live With? self Services at Home: Nursing Primary Language: Yemeni Smoking Status: Heavy Tobacco Smoker ETOH Use: denies use Illicit Drug Use: denies illicit drug use Functional Ability ADLs Independent: dressing, eating, toileting, bathing. Ambulation: independent IADLs Independent: shopping, housework, finances, food prep, telephone, transportation , medication admin. Exam & Diagnostic Data Vital Signs and I&O Vital Signs Result Date Time Pulse Ox 94 12/03 624 B/P 122/74 12/03 624 O2 Delivery Nasal Cannula 12/03 624 Temp 97.4 12/03 624 Pulse 69 12/03 624 Resp 18 12/03 624 O2 Flow Rate 2.0L 12/03 0000 Intake & Output 12/03 0000 12/02 1600 12/02 0800 Intake Total 210 Output Total 200 Balance 10 Intake, IV 150 Intake, Oral 60 Output, Urine 200 Patient 240 lb 240 lb Weight Exam of the right lateral thigh shows there to be a approximately 4 x 2 cm full- thickness ulcer with red and yellow fill was result of trauma. Present on admission there is no significant periwound erythema undermining exposed bone. Over the right heel is a large stage III pressure injury ulcer measuring approximately 7 x 5 cm there are areas of necrotic slough is no exposed bone the posterior tibial pulses there to be palpated. There is no significant periwound erythema. Of note the sedimentation rate is 83 and has been chronically elevated. Assessment/Plan Impression/Plan: D6-year-old gentleman status post left BKA setting chronic pressure ulcer of the left heel over many months. Concern is raised over the possibility of osteomyelitis and further imaging is required in view of his elevated sedimentation rate. The wound will likely need debridement and possible bone biopsy depending on results of imaging. Wound care recommendations are Aquacel Ag daily with leg elevation and offloading of the heel. Wound should be cleansed well. Podiatry evaluation. Right lateral thigh ulcer can be similarly dressed. Consult Acknowledgment - Thank you for your consult request.
--- NOTE | 2016-12-03 10:35 | Cons- Podiatry ---
General Information and HPI Consulting Request Date of Consult: 12/03/16 Requested By: HORACIO CROWLEY MD History of Present Illness: Mr Molina is a 56-year-old male who presents with a recent exacerbation of a chronic ulceration to the lateral aspect of his right heel. The patient had been undergoing wound care with the [facility], who noted interval worsening over the past week. 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 The patient denies any recent systemic signs of infection. Patient denies nausea vomiting fever chills. Allergies/Medications Allergies: Coded Allergies: erythromycin base (UNKNOWN 12/02/16) Home Med List: Abacavir Sulfate (Abacavir) 300 MG TABLET 2 TAB PO DAILY ANTIVIRAL (Reported) Alprazolam 0.5 MG TABLET 1 TAB PO Q4-6H PRN ANXIETY (Reported) Atazanavir Sulfate (Reyataz) 300 MG CAPSULE 1 CAP PO QAM ANTIVIRAL (Reported) with food Gabapentin 300 MG CAPSULE 1 CAP PO TID UNKNOWN (Reported) Lactulose 10 GRAM/15 ML SOLUTION 15 ML PO EOD PRN UNKNOWN (Reported) Lamivudine (Epivir) 150 MG TABLET 1 TAB PO DAILY ANTIVIRAL (Reported) Oxycodone HCl (Oxycodone HCl ER) 40 MG TAB.ER.12H 1 TAB PO Q12H PAIN ( Reported) Oxycodone HCl 30 MG TABLET 1 TAB PO Q4-6H PRN PAIN (Reported) Ritonavir (Norvir) 100 MG CAPSULE 1 CAP PO DAILY ANTIVIRAL (Reported) Trazodone HCl 100 MG TABLET 2 TAB PO QPM UNKNOWN (Reported) Past History Medical History Blood Transfusion Hx: No Neurological: NONE EENT: NONE Cardiovascular: NONE Respiratory: asthma Gastrointestinal: NONE Hepatic: NONE Renal: NONE Musculoskeletal: BACK ISSUES Psychiatric: anxiety Endocrine: NONE Blood Disorders: HIV Cancer(s): NONE 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 Home Who Do You Live With? self Services at Home: Nursing Primary Language: Czech Smoking Status: Heavy Tobacco Smoker ETOH Use: denies use Illicit Drug Use: denies illicit drug use Functional Ability ADLs Independent: dressing, eating, toileting, bathing. Ambulation: independent IADLs Independent: shopping, housework, finances, food prep, telephone, transportation , medication admin. Review of Systems Review of Systems: Unremarkable except for that noted in history present illness Exam & Diagnostic Data Vital Signs and I&O Vital Signs Date Time Temp Pulse Resp B/P Pulse O2 O2 Flow FiO2 Ox Delivery Rate 12/03 624 97.4 69 18 122/74 94 Nasal Cannula 12/03 0000 Nasal 2.0L Cannula 12/028 97.8 71 20 140/70 95 Nasal 2.0L Cannula 12/02 2136 Nasal 2.0L Cannula 12/02 2056 97.3 86 18 120/84 96 Nasal 2.0L Cannula 12/02 1832 97.0 88 18 113/73 95 Nasal 2.0L Cannula 12/02 1831 97.1 86 16 90/72 95 Nasal 2.0L Cannula 12/02 1503 97.4 88 20 137/76 97 Room Air Intake & Output 12/03 1600 12/03 0800 12/03 0000 12/02 1600 12/02 0800 12/02 0000 Intake Total 650 210 Output Total 250 200 Balance 400 10 Intake, IV 600 150 Intake, Oral 50 60 Number 0 Bowel Movements Output, Urine 250 200 Patient 240 lb 240 lb Weight Physical Exam: 5 cm x 4 cm stage III ulcer noted to the lateral aspect of the right heel. There is slough overlying a mixed granular fibrotic wound bed. There is central area of fibrosis identified of note, the heel has an edematous and boggy feel with palpation. No probing or undermining identified. No significant erythema identified. Assessment/Plan Assessment/Plan Nonhealing ulcer right foot. Consider an MRI to rule out a deeper infectious process. Patient would likely benefit from a debridement and negative pressure wound therapy regardless of the MRI findings. For now, daily Xeroform and dry sterile dressing to the heel ulceration. Consult Acknowledgment - Thank you for your consult request. Attending MD Review Statement Attending Statement Attending MD Statement: examined this patient
[2016-12-03] MEDS ORDERED: OXYCONTIN40 M1 PO (14:22)
[2016-12-03 14:55] VITALS: BP 110/70
[2016-12-03 21:06] VITALS: BP 104/70
[2016-12-04 06:00] VITALS: BP 108/70
--- NOTE | 2016-12-04 06:15 | PN- Housestaff ---
ALYSSIA DEL VALLE,[facility] 12/04/16 0614: Subjective Follow-up For: Cellulitis Osteomyelitis Subjective: Patiet was seen and examined this morning. Reports no issues overnight. Patient does report that pain is well controlled after starting home medication. Patient is schduled to go for an MRI this afternoon. Patient is tolerating PO intake well. Patient denies any fever, chills, nausea, vomiting. Review of Systems Constitutional: Reports: see HPI. Denies: chills, fever, malaise. Objective Last 24 Hrs of Vital Signs/I&O Vital Signs Date Time Temp Pulse Resp B/P Pulse O2 O2 Flow FiO2 Ox Delivery Rate 12/05 799 94 Nasal 2.0L Cannula 12/04 06 97.7 63 18 108/70 94 Nasal Cannula 12/04 0000 93 Nasal 2.0L Cannula 12/03 2106 97.6 56 16 104/70 93 Nasal 2.0L Cannula 12/03 1600 Nasal 2.0L Cannula 12/03 1455 98.2 66 18 110/70 96 Nasal 2.0L Cannula Intake & Output 12/04 1600 12/04 0800 12/04 0000 Intake Total 800 600 Output Total 500 775 Balance 300 -175 Intake, IV 600 Intake, Oral 200 600 Number 0 Bowel Movements Output, Urine 500 775 Physical Exam General Appearance: Alert, Oriented X3, Cooperative Cardiovascular: Normal S1, Normal S2 Lungs: Clear to Auscultation, Decreased Breath Sounds Abdomen: Normal Bowel Sounds, Soft, No Tenderness Neurological: Normal Speech, Strength at 5/5 X4 Ext Extremities: Right Heel Ulcer. Approximately 6 cm X 6cm. No Exposed Bone. No Significant Erythema noted. Right Lateral Thigh bandage present. Current Medications: Current Medications Sig/Puma Start time Last Medication Dose Route Stop Time Status Admin Abacavir Sulfate 600 MG DAILY 12/03 1245 AC 12/04 PO 0938 Acetaminophen 650 MG Q6P PRN 12/02 1830 AC PO Alprazolam 0.5 MG Q4 HRS NEEDED PRN 12/02 2030 AC 12/04 PO 12/09 2028 1047 Atazanavir 300 MG DAILY 12/03 1245 AC 12/04 PO 0938 Gabapentin 300 MG TID 12/03 1600 AC 12/04 PO 0938 Heparin Sodium 5,000 UNIT Q8 12/02 2200 AC 12/04 (Porcine) SC 0624 Lactulose 20 GM DAILY PRN 12/03 1245 AC PO Lamivudine 150 MG DAILY 12/03 1237 AC 12/04 PO 0938 Morphine Sulfate 2 MG Q4P PRN 12/02 1830 AC IV Nystatin 1 DEDRICK TID 12/02 2200 AC 12/04 TOP 0939 Oxycodone HCl 40 MG BID 12/03 2200 AC 12/04 PO 0938 Oxycodone HCl 30 MG Q4-6 PRN PRN 12/03 1430 AC 12/04 PO 1044 Oxycodone HCl 5 MG Q6P PRN 12/02 1830 AC 12/03 PO 1102 Ritonavir 100 MG DAILY 12/03 1245 AC 12/04 PO 0938 Sodium Chloride 1,000 ML Q13H 12/02 1830 DC 12/03 IV 2052 Trazodone HCl 200 MG QPM 12/03 2200 AC 12/03 PO 205 Last 24 Hrs of Lab/Attila Results Last 24 Hrs of Labs/Mics: Laboratory Tests 12/04/16 0630: Anion Gap 5, Estimated GFR 34 L, BUN/Creatinine Ratio 10.0, CBC w Diff NO MAN DIFF REQ, RBC 3.55 L, MCV 104.5 H, MCH 35.4 H, RDW 16.6 H, MPV 8.4, Gran % 51.6, Lymphocytes % 37.4, Monocytes % 7.5, Eosinophils % 3.0, Basophils % 0.5, Absolute Granulocytes 2.7, Absolute Lymphocytes 2.0, Absolute Monocytes 0.4, Absolute Eosinophils 0.2, Absolute Basophils 0, PUBS MCHC 33.9 Assessment/Plan Assessment: This is a 56-year-old gentleman with extensive past medical history was presented with chronic right lower extremity ulcer, which has become purulent and draining over the last 48-72 hours. Chronic right heel ulcer. Initial x-ray ruled out osteomyelitis however if ESR is elevated consider MRI for additional sensitivity and specificity imaging study. ESR was elevated at 83. Patient is scheduled to go for an MRI this afternoon. Will likeley need I and D on 12/05/2016. Consider infectious disease consult in a.m, if patient is febrile. Maintain patient off antibiotics for now. If patient becomes febrile or has no elevated white cell count consider broad-spectrum antibiotic coverage likely vancomycin. #Chronic back pain The patient who does have a reported chronic back pain needs to be adequately managed on home pain medications. Confirm medications in a.m. Monitor blood cultures. If positive for staph aureus consider potential infection of vertebral body due to hematogenous spread. If patient is positive forostemyleitis may require 6 weeks of antibiotic coverage. #Altered mental status Likely due to medication versus drugs of abuse, versus acute infectious process occurring. UA and U tox: Positive for benzodiazepines as well as opiates. Hold all narcotic pain medications due to decreased mentation and somnolence. Follow-up ammonia level:14 Initial lactic acid was 1.5. Acute kidney injury Likely due to decreased by mouth intake. Continue aggressive hydration with normal saline. BEP in a.m. creatinine this a.m. 2.2 decreased from 2.5. Creatine this AM 2.0 Continue to encourage by mouth intake. If creatinine fails to improve consider nephrology consult. On admission the patient did have a [place] catheter. Consider Mcgregor catheter. Was patient more stable can consider straight cath protocol. History of cough X-ray did show evidence of hypoinflation. Subtle airspace opacities in lung bases. Lower respiratory culture Incentive spirometer. TRC nebs. Consider pulmonology consult in a.m. if above imaging studies are Suggestive for infection. History of anxiety Continue alprazolam 0.5 mg. Previous multiple hospitalizations a year. Obtain records from [place] in a.m. Medication list confirm this morning and updated in orders. DVT prophylaxis Heparin subcutaneous Code full code Problem List: 1. HIV (human immunodeficiency virus infection) 2. Cellulitis of right foot 3. Open wound of foot 4. Acute renal failure Pain Ratin Pain Location: No Pain Reported Pain Goal: Remain pain free Pain Plan: Oxycontin Roxicodone Tomorrow's Labs & Rationales: No Labs Needed HORACIO CROWLEY MD 12/04/16 1218: Attending MD Review Statement Attending Statement Attending MD Statement: examined this patient, discuss w/resident/PA/COMMUTER PILOT, agreed w/resident/PA/COMMUTER PILOT, reviewed EMR data (avail), discussed with nursing, discussed with case mgmt, amended to note Attending Assessment/Plan: Patient seen and examined, feeling overall slightly better today. Claims that pain is controlled with the current pain regimen. Vital Signs Date Time Temp Pulse Resp B/P Pulse O2 O2 Flow FiO2 Ox Delivery Rate 12/05 799 94 Nasal 2.0L Cannula 12/04 0600 97.7 63 18 108/70 94 Nasal Cannula 12/04 0000 93 Nasal 2.0L Cannula 12/03 2106 97.6 56 16 104/70 93 Nasal 2.0L Cannula 12/03 1600 Nasal 2.0L Cannula 12/03 1455 98.2 66 18 110/70 96 Nasal 2.0L Cannula on exam; aox3, nad. cv; s1,s2, rrr resp; clear abd; soft, nt, bs+ ext; no edema. Laboratory Tests 12/04 629 Chemistry Sodium (137 - 145 mmol/L) 137 Potassium (3.5 - 5.1 mmol/L) 3.9 Chloride (98 - 107 mmol/L) 110 H Carbon Dioxide (22 - 30 mmol/L) 22 Anion Gap (5 - 16) 5 BUN (9 - 20 mg/dL) 20 Creatinine (0.7 - 1.2 mg/dL) 2.0 H Estimated GFR (>60 ml/min) 34 L BUN/Creatinine Ratio (7 - 25 %) 10.0 Hematology CBC w Diff NO MAN DIFF REQ WBC (4.8 - 10.8 /CUMM) 5.3 RBC (4.70 - 6.10 /CUMM) 3.55 L Hgb (14.0 - 18.0 G/DL) 12.6 L Hct (42 - 52 %) 37.1 L MCV (80.0 - 94.0 FL) 104.5 H MCH (27.0 - 31.0 PG) 35.4 H RDW (11.5 - 14.5 %) 16.6 H Plt Count (130 - 400 /CUMM) 120 L MPV (7.4 - 10.4 FL) 8.4 Gran % (42.2 - 75.2 %) 51.6 Lymphocytes % (20.5 - 51.1 %) 37.4 Monocytes % (1.7 - 9.3 %) 7.5 Eosinophils % (0 - 5 %) 3.0 Basophils % (0.0 - 2.0 %) 0.5 Absolute Granulocytes (1.4 - 6.5 /CUMM) 2.7 Absolute Lymphocytes (1.2 - 3.4 /CUMM) 2.0 Absolute Monocytes (0.10 - 0.60 /CUMM) 0.4 Absolute Eosinophils (0.0 - 0.7 /CUMM) 0.2 Absolute Basophils (0.0 - 0.2 /CUMM) 0 PUBS MCHC (33.0 - 37.0 G/DL) 33.9 A/P; 56 y/o M with pmh sig for left below-knee amputation for MRSA infection in 2000, Anxiety, HIV (currently on ritonavir], hepatitis B and a history of chronic ulcers, admitted with right heel nonhealing ulcer. Patient scheduled for MRI today. We need to Dr. Dr. George after the MRI results are back. Continue dressing changes as recommended by wound care. We have resumed patient's HIV medications. Current pain management seems to be adequate. Continue all other current medications. DVT prophylaxis: Heparin subcutaneous.
[2016-12-04 08:04] LABS: ABSOLUTE BASOPHIL COUNT 0 /CUMM (0.0-0.2); ABSOLUTE EOSINOPHIL COUNT 0.2 /CUMM (0.0-0.7); ABSOLUTE GRANULOCYTE CT 2.7 /CUMM (1.4-6.5); ABSOLUTE MONOCYTE COUNT 0.4 /CUMM (0.10-0.60); BASOPHIL % 0.5 % (0.0-2.0); GRANULOCYTE % 51.6 % (42.2-75.2); HEMATOCRIT 37.1 % (42-52); MEAN CORPUSCULAR HGB 35.4 PG (27.0-31.0); MEAN CORPUSCULAR HGB CONC 33.9 G/DL (33.0-37.0); MEAN CORPUSCULAR VOLUME 104.5 FL (80.0-94.0); MEAN PLATELET VOLUME 8.4 FL (7.4-10.4); PLATELET COUNT 120 /CUMM (130-400); RBC DISTRIBUTION WIDTH 16.6 % (11.5-14.5); RED BLOOD CELL CT 3.55 /CUMM (4.70-6.10); WHITE BLOOD CELL COUNT 5.3 /CUMM (4.8-10.8)
--- NOTE | 2016-12-04 10:11 | NUR ---
ATTEMPTED TO TAPER PATIENT O2 , ON RA PATIENT 88% WHILE LAYING IN BED, RETURNED TO 2L NC AND MAINTAINS SAT OF 94%
--- NOTE | 2016-12-04 13:28 | NUR ---
WOUND CARE: PER DR GOMES, PT DOES NOT REQUIRE WOUND CONSULT BY MD PT IS BEING FOLLOWED BY DR GOMES
[2016-12-04 15:00] VITALS: BP 118/72
--- NOTE | 2016-12-04 19:17 | MRI REPORT ---
EXAMINATION: MRI FOOT WITHOUT CONTRAST, RIGHT CLINICAL INFORMATION: Right foot pain with purulent discharge. COMPARISON: Radiographs 12/02/2016. TECHNIQUE: MRI without contrast is performed on the right foot. FINDINGS: Soft tissue ulceration along the lateral aspect of the heel is demonstrated with soft tissue edema. No abscess. There is prominent underlying bone marrow edema and loss of T1 marrow signal with probable erosion along the posterior aspect of the lateral process of the calcaneus compatible with osteomyelitis. Mild chronic Achilles tendinosis. Diffuse edema and fatty infiltration of the intrinsic muscles of the foot. IMPRESSION: Lateral soft tissue ulcer of the hindfoot with evidence of osteomyelitis along the posterior aspect of the lateral process of the calcaneus.
--- NOTE | 2016-12-04 20:33 | PN- Podiatry ---
Subjective Subjective: Patient seen without new complaints. Denies N/V/F/C. Objective Vital Signs and I&Os Vital Signs Date Time Temp Pulse Resp B/P Pulse O2 O2 Flow FiO2 Ox Delivery Rate 12/04 1600 94 Nasal 2.0L Cannula 12/04 1500 96.1 68 20 118/72 94 Room Air 2.0L 12/05 799 94 Nasal 2.0L Cannula 12/04 0600 97.7 63 18 108/70 94 Nasal Cannula 12/04 0000 93 Nasal 2.0L Cannula 12/03 2106 97.6 56 16 104/70 93 Nasal 2.0L Cannula Intake & Output 12/04 1600 12/04 0800 /08 0000 12/03 1600 12/03 0800 12/03 0000 Intake Total 855 800 600 950 650 210 Output Total 1150 500 775 600 250 200 Balance -295 300 -175 350 400 10 Intake, IV 375 600 600 600 150 Intake, Oral 480 200 600 350 50 60 Number 1 0 0 Bowel Movements Output, Urine 1150 500 775 600 250 200 Patient 240 lb Weight Physical Exam: Dressing to right foot clean, dry and intact. No pain with palpation right lower extremity. Assessment/Plan Assessment/Plan Non-healing ulcer right heel, question of osteomyelitis right heel. OR tomorrow for debridement and VAC. Attending MD Review Statement Attending Statement Attending MD Statement: examined this patient
[2016-12-05 00:07] VITALS: BP 110/78
--- NOTE | 2016-12-05 05:47 | PN- Housestaff ---
ALYSSIA DEL VALEL,[facility] 12/05/16 0546: Subjective Follow-up For: Cellulitis Osteomyelitis Subjective: Mr. Molina was seen and examined this morning. He is resting comfortably in bed. He reports no issues overnight. Patient is currently nothing by mouth owing to procedure scheduled for later on this morning with Dr. George for an I and D and possible wound VAC placement. Patient states that he's currently experiencing back pain located in the thoracic area. Pain is rated an 8 out of 10 severity. Described as a dull pain. Patient does state that this pain responds to pain medications which he has currently not received. Patient denies any fever, chills, nausea, vomiting. He states that his ulcer on his right foot is improving and has had no purulent drainage over the last 12 hours. Review of Systems Constitutional: Reports: see HPI. Objective Last 24 Hrs of Vital Signs/I&O Vital Signs Date Time Temp Pulse Resp B/P Pulse O2 O2 Flow FiO2 Ox Delivery Rate 12/05 0007 98.1 73 20 110/78 90 Nasal 2.0L Cannula 12/05 0000 90 Nasal 2.0L Cannula 12/04 1600 94 Nasal 2.0L Cannula 12/04 1500 96.1 68 20 118/72 94 Room Air 2.0L 12/04 0800 94 Nasal 2.0L Cannula 12/04 0600 97.7 63 18 108/70 94 Nasal Cannula Intake & Output 12/05 0800 12/05 0000 12/04 1600 Intake Total 600 855 Output Total 900 1150 Balance -300 -295 Intake, IV 375 Intake, Oral 600 480 Number 1 1 Bowel Movements Output, Urine 900 1150 Physical Exam General Appearance: Alert, Oriented X3, Cooperative Cardiovascular: Normal S1, Normal S2, No Murmurs Lungs: Increased breath Sounds Rhonci Right Lung base. Abdomen: Normal Bowel Sounds, Soft, No Tenderness Neurological: Normal Speech Current Medications: Current Medications Sig/Puma Start time Last Medication Dose Route Stop Time Status Admin Abacavir Sulfate 600 MG DAILY 12/03 1245 AC 12/04 PO 0938 Acetaminophen 650 MG Q6P PRN 12/02 1830 AC PO Alprazolam 0.5 MG Q4 HRS NEEDED PRN 12/02 2030 AC 12/05 PO 12/09 Atazanavir 300 MG DAILY 12/03 1245 AC 12/04 PO 0938 Gabapentin 300 MG TID 12/03 1600 AC 12/04 PO 2200 Heparin Sodium 5,000 UNIT Q8 12/02 2200 AC 12/05 (Porcine) SC 0441 Lactulose 20 GM DAILY PRN 12/03 1245 AC PO Lamivudine 150 MG DAILY 12/03 1237 AC 12/04 PO 0938 Morphine Sulfate 2 MG Q4P PRN 12/02 1830 AC IV Nystatin 1 DEDRICK TID 12/02 2200 AC 12/04 TOP 2200 Oxycodone HCl 40 MG BID 12/03 2200 AC 12/04 PO 2200 Oxycodone HCl 30 MG Q4-6 PRN PRN 12/03 1430 AC 12/05 PO 0014 Oxycodone HCl 5 MG Q6P PRN 12/02 1830 AC 12/04 PO 1326 Patient Medication 1 ED .STK-MED ONE 12/04 1354 [facility] 12/04 1355 Ritonavir 100 MG DAILY 12/03 1245 AC 12/04 PO 0938 Sodium Chloride 1,000 ML Q13H 12/02 1830 DC 12/03 IV 2052 Trazodone HCl 200 MG QPM 12/03 2200 AC 12/04 PO 2200 Last 24 Hrs of Lab/Attila Results Last 24 Hrs of Labs/Mics: Laboratory Tests 12/04/16 0630: Anion Gap 5, Estimated GFR 34 L, BUN/Creatinine Ratio 10.0, CBC w Diff NO MAN DIFF REQ, RBC 3.55 L, MCV 104.5 H, MCH 35.4 H, RDW 16.6 H, MPV 8.4, Gran % 51.6, Lymphocytes % 37.4, Monocytes % 7.5, Eosinophils % 3.0, Basophils % 0.5, Absolute Granulocytes 2.7, Absolute Lymphocytes 2.0, Absolute Monocytes 0.4, Absolute Eosinophils 0.2, Absolute Basophils 0, PUBS MCHC 33.9 Orders Miscellaneous Findings: SERVICE DATE: 12/04/16- EXAM TYPE: MRI - MRI-RT FOOT W/O RACHAEL IMPRESSION: Lateral soft tissue ulcer of the hindfoot with evidence of osteomyelitis along the posterior aspect of the lateral process of the calcaneus. DICTATED BY: YASHIRA PRADHAN MD Assessment/Plan Assessment: This is a 56-year-old gentleman with extensive past medical history was presented with chronic right lower extremity ulcer, which has become purulent and draining over the last 48-72 hours. Chronic right heel ulcer. Initial x-ray ruled out osteomyelitis however if ESR is elevated consider MRI for additional sensitivity and specificity imaging study. ESR was elevated at 83. Patient went for an MRI 12/04/2016. Positive for Osteomyelitis Scheduled for an I & D this am. Consider infectious disease consult in a.m, if patient is febrile. Maintain patient off antibiotics for now. If patient becomes febrile or has no elevated white cell count consider broad-spectrum antibiotic coverage likely vancomycin. #Chronic back pain The patient who does have a reported chronic back pain needs to be adequately managed on home pain medications. Confirm medications in a.m. Monitor blood cultures. If positive for staph aureus consider potential infection of vertebral body due to hematogenous spread. If patient is positive for ostemyleitis may require 6 weeks of antibiotic coverage. #Altered mental status Likely due to medication versus drugs of abuse, versus acute infectious process occurring. UA and U tox: Positive for benzodiazepines as well as opiates. Hold all narcotic pain medications due to decreased mentation and somnolence. Follow-up ammonia level:14 Initial lactic acid was 1.5. Acute kidney injury Likely due to decreased by mouth intake. Continue aggressive hydration with normal saline. BEP in a.m. creatinine this a.m. 2.2 decreased from 2.5. Creatine 12/04/2016 2.0 Continue to encourage by mouth intake. If creatinine fails to improve consider nephrology consult. Repeat BEP in AM On admission the patient did have a [place] catheter. Consider Mcgregor catheter. Was patient more stable can consider straight cath protocol. History of cough X-ray did show evidence of hypoinflation. Subtle airspace opacities in lung bases. Lower respiratory culture Incentive spirometer. TRC nebs. Consider pulmonology consult in a.m. if above imaging studies are Suggestive for infection. History of anxiety Continue alprazolam 0.5 mg. Previous multiple hospitalizations a year. Obtain records from [place] in a.m. Medication list confirm this morning and updated in orders. DVT prophylaxis Heparin subcutaneous Code full code Problem List: 1. HIV (human immunodeficiency virus infection) 2. Acute renal failure 3. Open wound of foot 4. Cellulitis of right foot Pain Ratin Pain Location: Back Pain Pain Goal: Remain pain free Pain Plan: Oxycodone and Oxycontin Tomorrow's Labs & Rationales: CBC: Monitor WBC in the setting of Acute infection BEP: Monitor Electrolytes s/p procedure. KEO DEL VALLE,[facility] 12/05/16 1129: Attending MD Review Statement Attending Statement Attending MD Statement: examined this patient, discuss w/resident/PA/STORY WRITER, agreed w/resident/PA/STORY WRITER, reviewed EMR data (avail), discussed with nursing, discussed with case mgmt, reviewed images, amended to note Attending Assessment/Plan: Patient seen and examined, feels okay. Denies any current pain. He was a concern about his surgery. He wants to know what kind of surgery is going to have. He is concerned if he is going to have any amputation. Vital Signs Date Time Temp Pulse Resp B/P Pulse O2 O2 Flow FiO2 Ox Delivery Rate 12/05 0651 97.9 75 20 118/76 91 Nasal 2.0L Cannula 12/05 0007 98.1 73 20 110/78 90 Nasal 2.0L Cannula 12/05 0000 90 Nasal 2.0L Cannula 12/04 1600 94 Nasal 2.0L Cannula 12/04 1500 96.1 68 20 118/72 94 Room Air 2.0L on exam; aox3, nad. cv; s1,s2, rrr resp; clear abd; soft, nt, bs+ ext; no edema no labs today. A/P; 56 y/o M with pmh sig for left below-knee amputation for MRSA infection in 2000, Anxiety, HIV (currently on ritonavir], hepatitis B and a history of chronic ulcers, admitted with right heel nonhealing ulcer, MRI is consistent with osteomyelitis. Patient going for bone debridement today with Dr. George. Will discuss with Dr. George if there is any need to start antibiotics afterwards. Urine culture growing Escherichia coli but patient has no symptoms therefore this is asymptomatic better your he underwent hold off on any antibiotics just for the UTI. Continue all other current medications. DVT prophylaxis: Heparin subcutaneous.
[2016-12-05 06:51] VITALS: BP 118/76
--- NOTE | 2016-12-05 15:33 | NUR ---
1300 PT GOING DOWN TO OR AT THIS TIME.
[2016-12-05 16:00] VITALS: BP 104/68
--- NOTE | 2016-12-05 16:35 | Operative Report ---
Operative/Inv Procedure Report Surgery Date: 12/05/16 Name of Procedure: 1 open incision and drainage deep to the D fashion with exposure of the flexor tendon and tendon sheath multiple sites right heel 2 bone biopsy right calcaneus 3 intraoperative administration of ankle block anesthesia 4 excisional debridement Pre-Operative Diagnosis: 1 open necrotic wound right heel 2 osteomyelitis right heel Post-Operative Diagnosis: The same Estimated Blood Loss: less than 50ml Surgeon/Stamp Collector: BRETT GOMES DPM Anesthesia: moderate sedation, block Operative/Procedure Note Note: After obtaining informed consent the patient was brought to the operating room and placed on the operating table in the supine position. The patient was then securely fastened to the operating table utilizing safety belt. After administration of IV sedation, 10 mL of 0.5% Marcaine plain was infiltrated about the patient's right ankle. The right foot and ankle within scrubbed prepped and draped in the usual aseptic manner. A large full-thickness necrotic was identified at the plantar lateral aspect of the right heel. 15 blade was utilized sharply revised skin margins. Dissection was then carried down deep to the fashion with exposure of the flexor tendon and tendon sheath multiple sites, both proximally and distally. All necrotic nonviable infected tissue sharply evacuated wound bed. Dissection was then carried down to the periosteum overlying the calcaneus was incised reflected. Bone specimen was harvested for both microbiologic and pathologic inspection. The open wound was then irrigated with 3 L normal sterile saline infusion 50,000 units of bacitracin. Following this, the foot was redraped and the surgeon's top gloves were changed clean gloves. Any bleeding vessels identified were cauterized or ligated as encountered. Nipple was then packed with Xeroform followed by 4 x 4's Kerlix and an Brown wrap. The patient was noted to tolerate both procedure and anesthesia well and the patient was transported to the operating room to recovery by sent stable.
--- NOTE | 2016-12-05 16:40 | NUR ---
1600 - PATIENT BACK TO FLOOR AT THIS TIME. VSS. A&OX3. 2L NC @ 95% STATUS POST I&D IN THE OR. DRESSING TO RIGHT FOOT.
[2016-12-05 21:57] VITALS: BP 106/80
--- NOTE | 2016-12-06 06:40 | PN- Housestaff ---
ALYSSIA DEL VALLE,[facility] 12/06/16 0639: Subjective Follow-up For: Osteomyelitis Subjective: Mr Tracy was seen and examined this morning. He is resting comfortably in bed. Patient reports that he feels better. He is post I and D day 1. Patient states that he continues to experience pain in his back, however has not received am medications. Patient reports a good appetite and is tolerating by mouth intake well. He does have a Mcgregor in place which he states is draining well. He denies any dysuria, frequency. Denies any fever, chills, nausea or vomiting. Review of Systems Constitutional: Reports: see HPI. Objective Last 24 Hrs of Vital Signs/I&O Vital Signs Date Time Temp Pulse Resp B/P Pulse O2 O2 Flow FiO2 Ox Delivery Rate 12/06 0728 97.8 63 20 100/70 92 Room Air 12/06 0000 Nasal 2.0L Cannula 12/05 2157 97.9 61 20 106/80 94 Nasal 2.0L Cannula 12/05 1600 97.6 60 18 104/68 95 Nasal 2.0L Cannula 12/05 1600 95 Nasal 2.0L Cannula 12/05 0800 95 Nasal 2.0L Cannula Intake & Output 12/06 0800 12/06 0000 12/05 1600 Intake Total 250 300 Output Total 800 500 Balance -550 -200 Intake, IV 250 Intake, Oral 300 Number 1 Bowel Movements Output, Urine 800 500 Patient 108.862 kg Weight Physical Exam General Appearance: Alert, Oriented X3, Cooperative Cardiovascular: Regular Rate, Normal S1, Normal S2, No Murmurs Lungs: Clear to Auscultation Abdomen: Normal Bowel Sounds, Soft, No Tenderness Neurological: Normal Speech Extremities: RLE, wrapped in JULISSA Bandage. Current Medications: Current Medications Sig/Puma Start time Last Medication Dose Route Stop Time Status Admin Abacavir Sulfate 600 MG DAILY 12/03 1245 AC 12/05 PO 0803 Acetaminophen 1,000 MG .STK-MED ONE 12/05 1246 DC IV 12/05 1247 Acetaminophen 650 MG Q6P PRN 12/02 1830 AC PO Alprazolam 0.5 MG Q4 HRS NEEDED PRN 12/02 2030 AC 12/05 PO 12/09 2028 1657 Ampicillin Sodium/ 3,000 MG Q6 12/05 1800 AC 12/06 Sulbactam Sodium IV 0534 Sodium Chloride 100 ML Atazanavir 300 MG DAILY 12/03 1245 AC 12/05 PO 0802 Fentanyl Citrate 100 MCG .STK-MED ONE 12/05 1245 DC IM 12/05 1246 Gabapentin 300 MG TID 12/03 1600 AC 12/05 PO 2153 Heparin Sodium 5,000 UNIT Q8 12/02 2200 AC 12/06 (Porcine) SC 0535 Lactulose 20 GM DAILY PRN 12/03 1245 AC PO Lamivudine 150 MG DAILY 12/03 1237 AC 12/05 PO 0802 Midazolam HCl 2 MG .STK-MED ONE 12/05 1245 DC IM 12/05 1246 Morphine Sulfate 2 MG Q4P PRN 12/02 1830 AC IV Nystatin 1 DEDRICK TID 12/02 2200 AC 12/05 TOP 2154 Oxycodone HCl 40 MG BID 12/03 2200 AC 12/05 PO 2153 Oxycodone HCl 30 MG Q4-6 PRN PRN 12/03 1430 AC 12/06 PO 0542 Oxycodone HCl 5 MG Q6P PRN 12/02 1830 DC 12/04 PO 1326 Ritonavir 100 MG DAILY 12/03 1245 AC 12/05 PO 0803 Sodium Chloride 1,000 ML Q10H 12/05 1030 DC 12/05 IV 12/05 202 1031 Trazodone HCl 200 MG QPM 12/03 2200 AC 12/05 PO 2153 Last 24 Hrs of Lab/Attila Results Last 24 Hrs of Labs/Mics: Laboratory Tests 12/06/16 0615: Sodium Pending, Potassium Pending, Chloride Pending, Carbon Dioxide Pending, Anion Gap Pending, BUN Pending, Creatinine Pending, BUN/Creatinine Ratio Pending , CBC w Diff Pending, WBC Pending, RBC Pending, Hgb Pending, Hct Pending, MCV Pending, MCH Pending, RDW Pending, Plt Count Pending, MPV Pending, PUBS MCHC Pending Microbiology 12/05 1400 EXTREMITIE: Gross Specimen Examination - RECD 12/05 1400 EXTREMITIE: Gram Stain - RECD Assessment/Plan Assessment: This is a 56-year-old gentleman with extensive past medical history was presented with chronic right lower extremity ulcer, which has become purulent and draining over the last 48-72 hours. #Osteomyelitis Initial x-ray ruled out osteomyelitis however if ESR is elevated consider MRI for additional sensitivity and specificity imaging study. ESR was elevated at 83. Patient went for an MRI 12/04/2016. Positive for Osteomyelitis Scheduled for an I & D this am. Consider infectious disease consult in a.m, if patient is febrile. Following and I and D with Dr. George the patient has been started on IV Unasyn 3000 mg every 6. We'll continue antibiotic coverage of the patient was in for a I&D and further sensitivities are revealed. #Chronic back pain The patient who does have a reported chronic back pain needs to be adequately managed on home pain medications. Confirm medications in a.m. Monitor blood cultures. If positive for staph aureus consider potential infection of vertebral body due to hematogenous spread. If patient is positive for ostemyleitis may require 6 weeks of antibiotic coverage. #Altered mental status Likely due to medication versus drugs of abuse, versus acute infectious process occurring. UA and U tox: Positive for benzodiazepines as well as opiates. Hold all narcotic pain medications due to decreased mentation and somnolence. Follow-up ammonia level:14 Initial lactic acid was 1.5. Acute kidney injury Likely due to decreased by mouth intake. Continue aggressive hydration with normal saline. BEP in a.m. creatinine this a.m. 2.2 decreased from 2.5. Creatine 12/04/2016 2.0. 12/06/2016: 2.2. Continue to encourage by mouth water intake. If creatinine fails to improve consider nephrology consult. Repeat BEP in AM On admission the patient did have a [place] catheter. Continue Mcgregor catheter. Was patient more stable can consider straight cath protocol. History of cough X-ray did show evidence of hypoinflation. Subtle airspace opacities in lung bases. Lower respiratory culture Incentive spirometer. [facility] nebs. Consider pulmonology consult in a.m. if above imaging studies are Suggestive for infection. History of anxiety Continue alprazolam 0.5 mg. Previous multiple hospitalizations a year. Obtain records from [place] in a.m. Medication list confirm this morning and updated in orders. DVT prophylaxis Heparin subcutaneous Code full code Problem List: 1. Cellulitis of right foot 2. Open wound of foot 3. Acute renal failure 4. HIV (human immunodeficiency virus infection) Pain Ratin Pain Location: Back Pain Goal: Remain pain free Pain Plan: Oxycodone Tomorrow's Labs & Rationales: BEP: Monitor Creatinine function KEO DEL VALLE,[facility] 12/06/16 1116: Attending MD Review Statement Attending Statement Attending MD Statement: examined this patient, discuss w/resident/PA/TOOLS PROGRAMMER, agreed w/resident/PA/TOOLS PROGRAMMER, reviewed EMR data (avail), discussed with nursing, discussed with case mgmt, reviewed images, amended to note Attending Assessment/Plan: Patient seen and examined, pain is under reasonable control. Patient wants to get out of here. Patient underwent debridement off the right foot wound with Dr. George yesterday. Wound is still open. So far bone cultures are pending. Vital Signs Date Time Temp Pulse Resp B/P Pulse O2 O2 Flow FiO2 Ox Delivery Rate 12/06 0728 97.8 63 20 100/70 92 Room Air 12/06 0000 Nasal 2.0L Cannula 12/05 2157 97.9 61 20 106/80 94 Nasal 2.0L Cannula 12/05 1600 97.6 60 18 104/68 95 Nasal 2.0L Cannula 12/05 1600 95 Nasal 2.0L Cannula on exam; aox3, nad. cv; s1, s2, rrr resp; clear abd; soft, nt, bs+ ext; no edema skin; + JULISSA wrap on right foot. Laboratory Tests 12/06 0615 Chemistry Sodium (137 - 145 mmol/L) 139 Potassium (3.5 - 5.1 mmol/L) 4.1 Chloride (98 - 107 mmol/L) 107 Carbon Dioxide (22 - 30 mmol/L) 25 Anion Gap (5 - 16) 7 BUN (9 - 20 mg/dL) 19 Creatinine (0.7 - 1.2 mg/dL) 2.2 H Estimated GFR (>60 ml/min) 31 L BUN/Creatinine Ratio (7 - 25 %) 8.6 Hematology CBC w Diff NO MAN DIFF REQ WBC (4.8 - 10.8 /CUMM) 5.7 RBC (4.70 - 6.10 /CUMM) 3.74 L Hgb (14.0 - 18.0 G/DL) 13.1 L Hct (42 - 52 %) 38.9 L MCV (80.0 - 94.0 FL) 103.8 H MCH (27.0 - 31.0 PG) 35.0 H RDW (11.5 - 14.5 %) 16.2 H Plt Count (130 - 400 /CUMM) 116 L MPV (7.4 - 10.4 FL) 8.2 Gran % (42.2 - 75.2 %) 56.4 Lymphocytes % (20.5 - 51.1 %) 30.1 Monocytes % (1.7 - 9.3 %) 8.7 Eosinophils % (0 - 5 %) 4.3 Basophils % (0.0 - 2.0 %) 0.5 Absolute Granulocytes (1.4 - 6.5 /CUMM) 3.2 Absolute Lymphocytes (1.2 - 3.4 /CUMM) 1.7 Absolute Monocytes (0.10 - 0.60 /CUMM) 0.5 Absolute Eosinophils (0.0 - 0.7 /CUMM) 0.2 Absolute Basophils (0.0 - 0.2 /CUMM) 0 PUBS MCHC (33.0 - 37.0 G/DL) 33.7 A/P; 56 y/o M with pmh sig for left below-knee amputation for MRSA infection in 2000, Anxiety, HIV (currently on ritonavir], hepatitis B and a history of chronic ulcers, admitted with right heel nonhealing ulcer, MRI is consistent with osteomyelitis, status post debridement of the wound yesterday with Dr. George. Wound is still open patient was started on antibiotics per his recommendations. Bone cultures are still pending, will follow up on the bone cultures and adjust antibiotics accordingly. Dr. George plan to take patient to our again sometime next week. Pain management is adequate. Continue patient's HIV medications. Creatinine is at baseline. DVT px: Heparin subcutaneous. Patient was offered a nicotine patch secondary to his craving for smoking but he refused.
[2016-12-06 07:28] VITALS: BP 100/70
[2016-12-06 07:43] LABS: ABSOLUTE BASOPHIL COUNT 0 /CUMM (0.0-0.2); ABSOLUTE EOSINOPHIL COUNT 0.2 /CUMM (0.0-0.7); ABSOLUTE GRANULOCYTE CT 3.2 /CUMM (1.4-6.5); ABSOLUTE LYMPH COUNT 1.7 /CUMM (1.2-3.4); ABSOLUTE MONOCYTE COUNT 0.5 /CUMM (0.10-0.60); BASOPHIL % 0.5 % (0.0-2.0); EOSINOPHIL % 4.3 % (0-5); GRANULOCYTE % 56.4 % (42.2-75.2); HEMATOCRIT 38.9 % (42-52); MEAN CORPUSCULAR HGB CONC 33.7 G/DL (33.0-37.0); MEAN CORPUSCULAR VOLUME 103.8 FL (80.0-94.0); MEAN PLATELET VOLUME 8.2 FL (7.4-10.4); PLATELET COUNT 116 /CUMM (130-400); RBC DISTRIBUTION WIDTH 16.2 % (11.5-14.5); RED BLOOD CELL CT 3.74 /CUMM (4.70-6.10); WHITE BLOOD CELL COUNT 5.7 /CUMM (4.8-10.8)
[2016-12-06 14:49] VITALS: BP 100/60
[2016-12-06 22:47] VITALS: BP 100/63
[2016-12-07 06:54] VITALS: BP 106/64
--- NOTE | 2016-12-07 07:55 | PN- Housestaff ---
ALYSSIA DEL VALLE,[facility] 12/07/16 0754: Subjective Follow-up For: Osteomyelitis Subjective: Mr Tracy was seen and examined this morning. He reports no issues overnight. Patient requests that his pain medications can be given simultaneously. He is able to have unrestricted movements of his right lower extremity. He is tolerating by mouth intake well. He denies any dysuria, frequency, urinary hesitation or burning at Mcgregor site. He denies any fever, chills, nausea, vomiting. Review of Systems Constitutional: Reports: see HPI. Denies: chills, diaphoresis, fever. Objective Last 24 Hrs of Vital Signs/I&O Vital Signs Date Time Temp Pulse Resp B/P Pulse O2 O2 Flow FiO2 Ox Delivery Rate 12/07 1442 98.0 74 20 104/70 92 12/07 0654 98.6 83 18 106/64 92 Room Air 12/06 2247 98.1 78 20 100/63 96 Room Air Intake & Output 12/07 1600 12/07 0800 12/07 0000 Intake Total 420 700 Output Total 1400 1850 Balance -980 -1150 Intake, IV 220 100 Intake, Oral 200 600 Number 0 Bowel Movements Output, Urine 1400 1850 Physical Exam General Appearance: Alert, Oriented X3, Cooperative Cardiovascular: Normal S1, Normal S2, No Murmurs Lungs: Clear to Auscultation Abdomen: Normal Bowel Sounds, Soft, No Tenderness Neurological: Normal Speech Extremities: RLE in yadiel bandage. Warm to touch. Current Medications: Current Medications Sig/Puma Start time Last Medication Dose Route Stop Time Status Admin Abacavir Sulfate 600 MG DAILY 12/03 1245 AC 12/07 PO 0904 Acetaminophen 650 MG Q6P PRN 12/02 1830 AC PO Alprazolam 0.5 MG Q4 HRS NEEDED PRN 12/02 2030 AC 12/06 PO 12/09 202 1800 Ampicillin Sodium/ 3,000 MG Q6 12/05 1800 AC 12/07 Sulbactam Sodium IV 1229 Sodium Chloride 100 ML Atazanavir 300 MG DAILY 12/03 1245 AC 12/07 PO 0855 Gabapentin 300 MG TID 12/03 1600 AC 12/07 PO 0854 Heparin Sodium 5,000 UNIT Q8 12/02 2200 AC 12/07 (Porcine) SC 1347 Lactulose 20 GM DAILY PRN 12/03 1245 AC 12/07 PO 1350 Lamivudine 150 MG DAILY 12/03 1237 AC 12/07 PO 0857 Morphine Sulfate 2 MG Q4P PRN 12/02 1830 AC IV Nystatin 1 DEDRICK TID 12/02 2200 DC 12/06 TOP 2127 Oxycodone HCl 40 MG BID 12/03 2200 AC 12/07 PO 0950 Oxycodone HCl 30 MG Q4-6 PRN PRN 12/03 1430 AC 12/07 PO 1230 Ritonavir 100 MG DAILY 12/03 1245 AC 12/07 PO 0855 Trazodone HCl 200 MG QPM 12/03 2200 AC 12/06 PO 2127 Last 24 Hrs of Lab/Attila Results Last 24 Hrs of Labs/Mics: Laboratory Tests 12/07/16 0926: Anion Gap 10, Estimated GFR 33 L, BUN/Creatinine Ratio 11.0 Assessment/Plan Assessment: This is a 56-year-old gentleman with extensive past medical history was presented with chronic right lower extremity ulcer, which has become purulent and draining over the last 48-72 hours. #Osteomyelitis Initial x-ray ruled out osteomyelitis however if ESR is elevated consider MRI for additional sensitivity and specificity imaging study. ESR was elevated at 83. Patient went for an MRI 12/04/2016. Positive for Osteomyelitis Scheduled for an I & D this am. Consider infectious disease consult in a.m, if patient is febrile. Following and I and D with Dr. George the patient has been started on IV Unasyn 3000 mg every 6. We'll continue antibiotic coverage of the patient was in for a I&D and further sensitivities are revealed. Wound cultures were positive for diptherioids. We'll continue Unasyn for now. Await further sensitivities. Patient expected to go to the OR on Friday. #Chronic back pain The patient who does have a reported chronic back pain needs to be adequately managed on home pain medications. Confirm medications in a.m. Monitor blood cultures. If positive for staph aureus consider potential infection of vertebral body due to hematogenous spread. If patient is positive for ostemyleitis may require 6 weeks of antibiotic coverage. #Altered mental status Likely due to medication versus drugs of abuse, versus acute infectious process occurring. UA and U tox: Positive for benzodiazepines as well as opiates. Hold all narcotic pain medications due to decreased mentation and somnolence. Follow-up ammonia level:14 Initial lactic acid was 1.5. Acute kidney injury Likely due to decreased by mouth intake. Continue aggressive hydration with normal saline. BEP in a.m. creatinine this a.m. 2.2 decreased from 2.5. Creatine 12/04/2016 2.0. 12/06/2016: 2.2. 12/07/2016: 2.1 Continue to encourage by mouth water intake. If creatinine fails to improve consider nephrology consult. Repeat BEP in AM On admission the patient did have a [place] catheter. Continue Mcgregor catheter. Was patient more stable can consider straight cath protocol. History of cough X-ray did show evidence of hypoinflation. Subtle airspace opacities in lung bases. Lower respiratory culture Incentive spirometer. TRC nebs. Consider pulmonology consult in a.m. if above imaging studies are Suggestive for infection. History of anxiety Continue alprazolam 0.5 mg. Previous multiple hospitalizations a year. Obtain records from [place] in a.m. Medication list confirm this morning and updated in orders. DVT prophylaxis Heparin subcutaneous Code full code Problem List: 1. HIV (human immunodeficiency virus infection) 2. Acute renal failure 3. Open wound of foot Pain Ratin Pain Location: Chronic Back Pain Pain Goal: Remain pain free Pain Plan: Roxicodone Tomorrow's Labs & Rationales: BEP: Monitor Cr MEG DEL VALLE,[facility] 12/07/16 1026: Attending MD Review Statement Attending Statement Attending MD Statement: examined this patient, discuss w/resident/PA/SMALL BUSINESS REPRESENTATIVE, agreed w/resident/PA/SMALL BUSINESS REPRESENTATIVE, reviewed EMR data (avail), discussed with nursing Attending Assessment/Plan: Patient seen and examined. Plan of care discussed with the medical team and the patient. Available lab work and radiology test reports were reviewed. Patient does not appear to be any distress. He complains of pain in the left leg. No recent fevers noted no nausea vomiting chills or chest pains noted. His vital signs are currently stable and is afebrile. No new labs were done today. Chest exam is clear and abdomen is obese soft nontender. Plans to continue current antibiotics. Patient be taken to operation theater next week per Dr. George for debridement.
--- NOTE | 2016-12-07 11:24 | NUR ---
DR. CADE CONTACTED EARLIER REGARDING R HEEL CULTURE FROM OR. PT ON UNASYN. RN CONTACTED PHARMACY TO ASSESS IF MED IS SENSITIVE TO BACTERIA. PER PHARMACIST BEKIM, UNASYN DOES NOT COVER DIPTHEROIDS. DR. CADE UPDATED. PENDING POSSIBLE NEW ORDERS. WILL CONT TO MONITOR.
[2016-12-07 14:42] VITALS: BP 104/70
[2016-12-07 21:48] VITALS: BP 108/70
[2016-12-08 06:00] VITALS: BP 106/68
--- NOTE | 2016-12-08 08:42 | PN- Housestaff ---
AUSTEN DEL VALLE,[facility] 12/08/16 0842: Subjective Follow-up For: Osteomyelitis Subjective: I saw and examined the patient today morning He is lying in the bed, reports his pain is not well controlled with medications. He had a descent bowel movement this morning. His dressing is not really tight. appears not very distressed. No issues with urination. no overnight events. Review of Systems Constitutional: Reports: see HPI. Comments: ROS negative except the above. Objective Last 24 Hrs of Vital Signs/I&O Vital Signs Date Time Temp Pulse Resp B/P Pulse O2 O2 Flow FiO2 Ox Delivery Rate 12/08 06 98.1 73 18 106/68 91 Room Air 12/07 2148 97.6 75 20 108/70 93 Room Air 12/07 1442 98.0 74 20 104/70 92 Intake & Output 12/08 1600 12/08 0800 12/08 0000 Intake Total 360 500 Output Total 550 800 Balance -190 -300 Intake, IV 240 Intake, Oral 120 500 Number 1 Bowel Movements Output, Urine 550 800 Physical Exam General Appearance: Alert, Oriented X3, Cooperative Skin: No Rashes, No Breakdown, dressing evident in the right lower extremity HEENT: Atraumatic, PERRLA, EOMI Neck: Supple Cardiovascular: Regular Rate, Normal S1, Normal S2, No Murmurs Lungs: Clear to Auscultation, Normal Air Movement Abdomen: Normal Bowel Sounds, Soft, No Tenderness Neurological: Normal Speech, Strength at 5/5 X4 Ext, Normal Tone, Sensation Intact Extremities: No Clubbing, No Cyanosis, edema present on the right lower extremity Current Medications: Current Medications Sig/Puma Start time Last Medication Dose Route Stop Time Status Admin Abacavir Sulfate 600 MG DAILY 12/03 1245 AC 12/07 PO 0904 Acetaminophen 650 MG Q6P PRN 12/02 1830 AC PO Alprazolam 0.5 MG Q4 HRS NEEDED PRN 12/02 2030 AC 12/08 PO 12/09 2028 0038 Ampicillin Sodium/ 3,000 MG Q6 12/05 1800 AC 12/08 Sulbactam Sodium IV 0641 Sodium Chloride 100 ML Atazanavir 300 MG DAILY 12/03 1245 AC 12/07 PO 0855 Docusate Sodium 100 MG DAILY 12/08 1000 AC PO Gabapentin 300 MG TID 12/03 1600 AC 12/07 PO 2147 Heparin Sodium 5,000 UNIT Q8 12/02 2200 AC 12/08 (Porcine) SC 0641 Lactulose 20 GM DAILY PRN 12/03 1245 AC 12/07 PO 1350 Lamivudine 150 MG DAILY 12/03 1237 AC 12/07 PO 0857 Morphine Sulfate 2 MG Q4P PRN 12/02 1830 AC IV Oxycodone HCl 40 MG BID 12/03 2200 AC 12/07 PO 2147 Oxycodone HCl 30 MG Q4-6 PRN PRN 12/03 1430 AC 12/08 PO 0655 Ritonavir 100 MG DAILY 12/03 1245 AC 12/07 PO 0855 Trazodone HCl 200 MG QPM 12/03 2200 AC 12/07 PO 2147 Last 24 Hrs of Lab/Attila Results Last 24 Hrs of Labs/Mics: Laboratory Tests 12/08/16 0643: Sodium Pending, Potassium Pending, Chloride Pending, Carbon Dioxide Pending, Anion Gap Pending, BUN Pending, Creatinine Pending, BUN/Creatinine Ratio Pending 12/07/16 0926: Anion Gap 10, Estimated GFR 33 L, BUN/Creatinine Ratio 11.0 Lines/Diet/Fluids Lines: peripheral lines Assessment/Plan Assessment: This is a 56-year-old gentleman with extensive past medical history was presented with chronic right lower extremity ulcer, which has become purulent and draining over the last 48-72 hours. #Osteomyelitis Initial x-ray ruled out osteomyelitis however if ESR is elevated consider MRI for additional sensitivity and specificity imaging study. ESR was elevated at 83. Patient went for an MRI 12/04/2016. Positive for Osteomyelitis Scheduled for an I & D this am. Consider infectious disease consult in a.m, if patient is febrile. Following and I and D with Dr. George the patient has been started on IV Unasyn 3000 mg every 6. We'll continue antibiotic coverage of the patient was in for a I&D and further sensitivities are revealed. Wound cultures were positive for diptherioids. We'll continue Unasyn for now. Await further sensitivities. Going to OR tomorrow, so NPO overnight. #Chronic back pain The patient who does have a reported chronic back pain needs to be adequately managed on home pain medications. Confirm medications in a.m. Monitor blood cultures. If positive for staph aureus consider potential infection of vertebral body due to hematogenous spread. If patient is positive for ostemyleitis may require 6 weeks of antibiotic coverage. #Altered mental status Likely due to medication versus drugs of abuse, versus acute infectious process occurring. UA and U tox: Positive for benzodiazepines as well as opiates. Hold all narcotic pain medications due to decreased mentation and somnolence. Follow-up ammonia level:14 Initial lactic acid was 1.5. Acute kidney injury Likely due to decreased by mouth intake. Continue aggressive hydration with normal saline. BEP in a.m. creatinine this a.m. 2.2 decreased from 2.5. Creatine 12/04/2016 2.0. 12/06/2016: 2.2. 12/07/2016: 2.1 Continue to encourage by mouth water intake. If creatinine fails to improve consider nephrology consult. Repeat BEP in AM On admission the patient did have a [place] catheter. Continue Mcgregor catheter. Was patient more stable can consider straight cath protocol. History of cough X-ray did show evidence of hypoinflation. Subtle airspace opacities in lung bases. Lower respiratory culture Incentive spirometer. TRC nebs. Consider pulmonology consult in a.m. if above imaging studies are Suggestive for infection. History of anxiety Continue alprazolam 0.5 mg. Previous multiple hospitalizations a year. Obtain records from [place] in a.m. Medication list confirm this morning and updated in orders. DVT prophylaxis Heparin subcutaneous Code full code Problem List: 1. Cellulitis of right foot 2. Acute renal failure 3. Open wound of foot 4. HIV (human immunodeficiency virus infection) Pain Ratin Pain Location: right lower extremity Pain Goal: Pain 4 or less Pain Plan: oxycodone 40mg BID Morphine 2mg Q4 PRN Tomorrow's Labs & Rationales: bep to monitor renal function - Sammy WEAVER MD,SEBASTIAN 12/08/16 1034: Attending Review Statement Attending Statement Attending Assessment/Plan: Attending Statement: examined this patient, discuss w/resident/PA/ENDLESS TRACK VEHICLE SUPERVISOR, agreed w/resident/PA/ENDLESS TRACK VEHICLE SUPERVISOR, reviewed EMR data (avail), discussed with nursing Attending Assessment/Plan: Patient seen and examined. Plan of care discussed with the medical team and the patient. Available lab work and radiology test reports were reviewed. Patient does not appear to be any distress. He complains of pain in the right foot . Loss pain score was 10. No recent fevers noted no nausea vomiting chills or chest pains noted. His vital signs are currently stable and is afebrile. Chest exam is clear and abdomen is obese soft nontender. Chemistry should labs show creatinine of 2.2. Plans to continue current antibiotics. Patient be taken to operation theater next week per Dr. George for debridement. Encourage oral liquids. Patient is to go to operation theater tomorrow patient will need to be nothing by mouth past midnight and will in IV fluids
[2016-12-08 15:17] VITALS: BP 110/60
[2016-12-08 22:46] VITALS: BP 112/60
[2016-12-09 06:00] VITALS: BP 118/70
--- NOTE | 2016-12-09 06:00 | PN- Housestaff ---
ALYSSIA DEL VALLE,EARL 12/09/16 0600: Subjective Follow-up For: Osteomyelitis Subjective: Mr Tracy was seen and examined this morning. He reports no acute issues overnight. The patient does endorse pain owing to the fact that he medications have been held for his upcoming procedure. Pain is most prevelant in his back, owing due to chronic condition. He denies any pain in his lower extremities. He denies any dysuria, frequency or hesitation. His robles is draining well. The patient denies fever, chills , nausea and vomiting. Review of Systems Constitutional: Reports: see HPI. Objective Last 24 Hrs of Vital Signs/I&O Vital Signs Date Time Temp Pulse Resp B/P Pulse O2 O2 Flow FiO2 Ox Delivery Rate 12/09 06 72 20 118/70 92 Room Air 12/08 2246 98.6 76 20 112/60 93 Room Air 12/08 1517 98.5 76 20 110/60 92 Intake & Output 12/09 0800 12/09 0000 12/08 1600 Intake Total 029 319 0684 Output Total 1300 1200 950 Balance -750 -800 750 Intake, IV 550 Intake, Oral 400 1700 Number 0 Bowel Movements Output, Urine 1300 1200 950 Physical Exam General Appearance: Alert, Oriented X3, Cooperative Cardiovascular: Regular Rate, Normal S1, Normal S2 Lungs: Clear to Auscultation Abdomen: Normal Bowel Sounds, Soft, No Tenderness Neurological: Normal Speech Extremities: No Edema Current Medications: Current Medications Sig/Puma Start time Last Medication Dose Route Stop Time Status Admin Abacavir Sulfate 600 MG DAILY 12/03 1245 AC 12/08 PO 0846 Acetaminophen 650 MG Q6P PRN 12/02 1830 AC PO Alprazolam 0.5 MG Q4 HRS NEEDED PRN 12/02 2030 AC 12/08 PO 12/09 2028 2256 Ampicillin Sodium/ 3,000 MG Q6 12/05 1800 AC 12/09 Sulbactam Sodium IV 0544 Sodium Chloride 100 ML Atazanavir 300 MG DAILY 12/03 1245 AC 12/08 PO 0846 Dextrose/Sodium 1,000 ML Q20H 12/09 0000 AC 12/09 Chloride IV 0050 Docusate Sodium 100 MG DAILY 12/08 1000 AC 12/08 PO 0847 Gabapentin 300 MG TID 12/03 1600 AC 12/08 PO 2255 Heparin Sodium 5,000 UNIT Q8 12/02 2200 AC 12/09 (Porcine) [place] 0545 Lactulose 20 GM DAILY PRN 12/03 1245 AC 12/07 PO 1350 Lamivudine 150 MG DAILY 12/03 1237 AC 12/08 PO 0846 Morphine Sulfate 2 MG ONCE ONE 12/09 0315 DC IV 12/09 0316 Morphine Sulfate 2 MG Q4P PRN 12/02 1830 AC IV Oxycodone HCl 40 MG BID 12/03 2200 AC 12/08 PO 2256 Oxycodone HCl 30 MG Q4-6 PRN PRN 12/03 1430 AC 12/08 PO 1909 Ritonavir 100 MG DAILY 12/03 1245 AC 12/08 PO 0846 Trazodone HCl 200 MG QPM 12/03 2200 AC 12/08 PO 2255 Assessment/Plan Assessment: This is a 56-year-old gentleman with extensive past medical history was presented with chronic right lower extremity ulcer, which has become purulent and draining over the last 48-72 hours. #Osteomyelitis Initial x-ray ruled out osteomyelitis however if ESR is elevated consider MRI for additional sensitivity and specificity imaging study. ESR was elevated at 83. Patient went for an MRI 12/04/2016. Positive for Osteomyelitis Scheduled for an I & D this am. Consider infectious disease consult in a.m, if patient is febrile. Following and I and D with Dr. George the patient has been started on IV Unasyn 3000 mg every 6 hours. We'll continue antibiotic coverage of the patient was in for a I&D. Wound cultures were positive for diptherioids from [facility]. Continue Unasyn for now. Await further sensitivities. Going to OR today. #Chronic back pain The patient who does have a reported chronic back pain needs to be adequately managed on home pain medications. Confirm medications in a.m. Monitor blood cultures. If positive for staph aureus consider potential infection of vertebral body due to hematogenous spread. If patient is positive for ostemyleitis may require 6 weeks of antibiotic coverage. #Altered mental status Likely due to medication versus drugs of abuse, versus acute infectious process occurring. UA and U tox: Positive for benzodiazepines as well as opiates. Hold all narcotic pain medications due to decreased mentation and somnolence. Follow-up ammonia level:14 Initial lactic acid was 1.5. Acute kidney injury Likely due to decreased by mouth intake. Continue aggressive hydration with normal saline. BEP in a.m. creatinine this a.m. 2.2 decreased from 2.5. Creatine 12/04/2016 2.0. 12/06/2016: 2.2. 12/07/2016: 2.1 Creatinine this AM: 1.9 Continue to encourage by mouth water intake. If creatinine fails to improve consider nephrology consult. Repeat BEP in AM On admission the patient did have a [place] catheter. Continue Robles catheter. Was patient more stable can consider straight cath protocol. History of cough X-ray did show evidence of hypoinflation. Subtle airspace opacities in lung bases. Lower respiratory culture Incentive spirometer. TRC nebs. Consider pulmonology consult in a.m. if above imaging studies are Suggestive for infection. History of anxiety Continue alprazolam 0.5 mg. Previous multiple hospitalizations a year. Obtain records from [facility] in a.m. Medication list confirm this morning and updated in orders. DVT prophylaxis Heparin subcutaneous Code full code Problem List: 1. HIV (human immunodeficiency virus infection) 2. Acute renal failure 3. Open wound of foot 4. Cellulitis of right foot Pain Ratin Pain Location: Back Pain Goal: Remain pain free Pain Plan: Oxycontin Roxicodone Tomorrow's Labs & Rationales: No Labs HORACIO CROWLEY MD 12/09/16 1227: Attending MD Review Statement Attending Statement Attending MD Statement: examined this patient, discuss w/resident/PA/ACCOUNT REPRESENTATIVE, agreed w/resident/PA/ACCOUNT REPRESENTATIVE, reviewed EMR data (avail), discussed with nursing, discussed with case mgmt, amended to note Attending Assessment/Plan: Patient seen and examined, does not complain of any pain. He's feeling hungry. He is awaiting to go back to OR today for further debridement. Vital Signs Date Time Temp Pulse Resp B/P Pulse O2 O2 Flow FiO2 Ox Delivery Rate 12/09 0600 72 20 118/70 92 Room Air 12/08 2246 98.6 76 20 112/60 93 Room Air 12/08 1517 98.5 76 20 110/60 92 on exam; aox3, nad. cv; s1,s2, rrr resp; clear abd; soft, nt, bs+ ext; no edema, + yadiel wrap on right foot. Laboratory Tests 12/09 0650 Chemistry Sodium (137 - 145 mmol/L) 137 Potassium (3.5 - 5.1 mmol/L) 3.9 Chloride (98 - 107 mmol/L) 100 Carbon Dioxide (22 - 30 mmol/L) 29 Anion Gap (5 - 16) 7 BUN (9 - 20 mg/dL) 23 H Creatinine (0.7 - 1.2 mg/dL) 1.9 H Estimated GFR (>60 ml/min) 37 L BUN/Creatinine Ratio (7 - 25 %) 12.1 Magnesium (1.6 - 2.3 mg/dL) 2.1 A/P; 56 y/o M with pmh sig for left below-knee amputation for MRSA infection in 2000, Anxiety, HIV (currently on ritonavir], hepatitis B and a history of chronic ulcers, admitted with right heel nonhealing ulcer, MRI is consistent with osteomyelitis, status post debridement of the wound with Dr. Geogre 4 days ago. Today scheduled for the second procedure. Please check with Dr. George if continued use of antibiotics if indicated. Bone cultures from the previous procedure are only growing diphtheroids. Currently patient on Unasyn. Will check with Dr. George about long-term antibiotics and the need for PICC line. Continue all other current medications including pain management. DVT prophylaxis: Heparin subcutaneous.
--- NOTE | 2016-12-09 09:45 | NUR ---
0945- PT NPO FOR OR WITH DR GOMES. PER PT, HE CANNOT TAKE HIS ANTIVIRALS ON AN EMPTY STOMACH. PT WILL TAKE ANTIVIRALS WHEN HE COMES BACK TO THE FLOOR AFTER SURGERY.
--- NOTE | 2016-12-09 13:35 | Discharge Summary ---
See Addendum Visit Information Visit Dates Admission Date: 12/02/16 Discharge Date: 12/12/16 Hospital Course Course Attending Physician: KEO DEL VALLE,HORACIO Primary Care Physician: JOSE EDUARDO DEL VALLE,[facility] Hospital Course: 56 yo M smoker with h/o HIV on Ritonavir+Atazanavir+Abacavir, Hep C s/p Harvoni Rx, Left BKA s/p MRSA osteomyelitis (2000), CKD stage 3A, chronic back pain on opiates, chronic nonhealing ulcer to right heel, is brought in for evaluation of worsening infection of the right heel. According to sister, the right heel wound has been evaluated at [facility] (2015), negative for osteomyelitis and was treated with antibiotics after debridement. This was slowly heeling, however in the past 3 days prior to the admission the visiting RN noticed foul smelling discharge/ pus draining from the wound. Vitals on admission stable except for one episode of hypotension Labs on admission: No leukocytosis, macrotycosis, ESR 83, BUN 26, creat 2.5 (1.3 -1.5), glucose 107, T. Bili 1.4, AST/ALT normal, CRP 1.4, lactic acid and ammonia levels are normal. UA turbid, large LE, positive nitrite, packed WBC, Utox positive for Benzos. Right foot Xray no e/o osteomyelitis. CXR shows hypoinflation. Subtle airspace opacities within the bilateral lung bases, left greater than right. Hospital course 1. Chronic nonhealing right heel ulcer: Patient was admitted to general medical floor, pancultured and started on IV fluids. Consult was obtained who recommended that patient would need debridement. MRI of the foot was done which showed lateral soft tissue ulcer of the hindfoot with evidence of osteomyelitis along the posterior aspect of the lateral process of the calcaneus. Patient underwent open incision and debridement on 12/05/2016 and specimen sent for pathology. He was later started on Unasyn given the suspicion an MRI for osteomyelitis. He was later taken for a repeat debridement on 12/09/2016. He was placed on a wound VAC and hence no growth in bone culture antibiotics was discontinued as per recommendation by podiatry.Wound consult was obtained and recommendation was done for Aquacel Ag daily with leg elevation and offloading of the heel. 2. Lethargic, altered mental status secondary to medications/infection: Initial narcotics were held which was later decreased restarted as his mentation improved on the next day of admission. His mentation remained stable during the hospital stay. 3. Acute and chronic kidney disease: His records unavailable on the time of admission. Patient reported he had chronic ear disease. He was started on IV fluids the initial assumption of prerenal. His creatinine did improve slightly from 2.2-1.9. His IV fluids were later stopped and avoid nephrotoxic agents during the hospital stay. 4. Chronic back pain: He was continued on his home medications with pain adequately controlled. 5. History of anxiety: Was continued on alprazolam 0.5 mg daily 6. History of HIV and hepatitis C infection: He was continued on home medications after being confirmed with the pharmacy. 7. Urinary tract infection: He was continued on Unasyn and later changed to by mouth Augmentin for a total of 7 days DVT prophylaxis with subcutaneous heparin Full CODE STATUS Allergies: Coded Allergies: erythromycin base (UNKNOWN 12/02/16) Disposition Summary Disposition Principal Diagnosis: 1. Chronic nonhealing right heel ulcer s/p debridment and wound vac placement 2. Lethargic, altered mental status secondary to medications 3. Acute and chronic kidney disease 4. UTI Additional Diagnosis: HIV Discharge Disposition: STR Discharge Instructions General Discharge Information Code Status: Full Code Patient's Diet: Regular diet Patient's Activity: As tolerated Follow-Up Instructions/Appts: 1. Follow-up with primary care physician a week upon discharge 2. Follow-up with Dr. George for wound assessment and removal of wound VAC. 3. Continue to follow up with his infectious disease specialist Medications at Discharge Discharge Medications: Continue taking these medications: Alprazolam (Alprazolam) 0.5 MG TABLET 1 Tablet ORAL Q4-6H as needed for ANXIETY Comments: Last Taken: 12/12/16 Time: 9AM Oxycodone HCl (Oxycodone HCl) 30 MG TABLET 1 Tablet ORAL Q4-6H as needed for PAIN Comments: Last Taken: 12/12/16 Time: 10AM Trazodone HCl (Trazodone HCl) 100 MG TABLET 2 Tablet ORAL Every night Comments: Last Taken: 12/11/16 Time: 10PM Gabapentin (Gabapentin) 300 MG CAPSULE 1 Capsule ORAL THREE TIMES DAILY Comments: Last Taken: 12/12/16 Time: 9AM Lamivudine (Epivir) 150 MG TABLET 1 Tablet ORAL DAILY Comments: Last Taken: 12/12/16 Time: 9AM Ritonavir (Norvir) 100 MG CAPSULE 1 Capsule ORAL DAILY Comments: Last Taken: 12/12/16 Time: 9AM Atazanavir Sulfate (Reyataz) 300 MG CAPSULE 1 Capsule ORAL Every Morning Instructions: with food Comments: Last Taken: 12/12/16 Time: 9AM Abacavir Sulfate (Abacavir) 300 MG TABLET 2 Tablet ORAL DAILY Comments: Last Taken: 12/12/16 Time: 9AM Lactulose (Lactulose) 10 GRAM/15 ML SOLUTION 15 Milliliters ORAL Every other day as needed for UNKNOWN Comments: NOT GIVEN Oxycodone HCl (Oxycontin) 40 MG TAB.ER.12H 1 Tablet ORAL TWICE DAILY Comments: Last Taken: 12/12/16 Time: 9AM Copies To: JOSE EDUARDO DEL VALLE,DIANA
[2016-12-09 13:58] VITALS: BP 142/60
--- NOTE | 2016-12-09 17:41 | Operative Report ---
Operative/Inv Procedure Report Surgery Date: 12/09/16 Name of Procedure: 1 open incision and drainage deep to the D fashion with exposure of the flexor tendon and tendon sheath multiple sites right foot 2 intraoperative administration of negative pressure wound therapy 3 intraoperative administration of ankle block anesthesia 4 excisional debridement Pre-Operative Diagnosis: 1 open necrotic wound right foot Post-Operative Diagnosis: The same Estimated Blood Loss: less than 50ml Surgeon/[employer]: BRETT GOMES DPM Anesthesia: moderate sedation, block Operative/Procedure Note Note: After obtaining informed consent the patient was brought to the operating room and placed on the operating table in supine position. The patient was then securely fastened to the operating table utilizing safety belt. After administration of IV sedation, 10 mL of 0.5% Marcaine plain was infiltrated about the patient's right ankle. The right foot and ankle within scrubbed prepped and draped in usual aseptic manner. Attention was directed to the right ankle, where a large full-thickness necrotic was identified. A 15 blade visualized sharply revised skin margins. It 6 was then carried down deep to the D fashion with exposure of the flexor tendon and tendon sheath multiple sites, both proximally and distally. All necrotic nonviable infected tissue sharply evacuated from the wound bed. The foot was then irrigated with 3 L normal sterile saline fissure 50,000 units of bacitracin. Following this, the foot was redraped and the surgeon's top gloves were exchanged for clean gloves. Any bleeding vessels identified were cauterized or ligated as encountered. Negative pressure wound therapy was then applied followed by 4 x 4's Kerlix and an Brown wrap. The patient was noted to tolerate both procedure and anesthesia well and the patient was transported from the operating room to recovery with vital signs stable.
--- NOTE | 2016-12-09 19:11 | Patient Discharge Instructions ---
Discharge Instructions General Discharge Information You were seen/treated for: Osteomyelitis You had these procedures: Open incision and drainage and excisional debridement of wound of the right foot Watch for these problems: Fever, nausea, vomiting, chills, weakness, increased generalized edema. Palpitations. Chest pain. Shortness of breath. Pain from site. Detachment of the wound Vac. If you have any adverse reactions from any of the medications prescribed please inform your primary care physician and you may be required to come back to the emergency department. Thank you for allowing us to be part of your care. Special Instructions: Please follow up with your PCP in one week. Please inform Dr Morocho about the medication changes we have made. Please follow up with Dr Ulloa in one week. We have provided you with a referral. Diet Recommended Diet: Heart Healthy Activity Activity Self Limited: Yes (As Tolerated) Acute Coronary Syndrome Inclusion Criteria At DC or during hospital stay patient has or had the following: ACS DIAGNOSIS No Discharge Core Measures Meds if any: Prescribed or Continued at Discharge Meds if any: NOT Prescribed or Continued at Discharge Congestive Heart Failure Inclusion Criteria At DC or during hospital stay patient has or had the following: CHF DIAGNOSIS No Discharge Core Measures Meds if any: Prescribed or Continued at Discharge Meds if any: NOT Prescribed or Continued at Discharge Cerebrovascular accident Inclusion Criteria At DC or during hospital stay patient has or had the following: CVA/TIA Diagnosis No Discharge Core Measures Meds if any: Prescribed or Continued at Discharge Meds if any: NOT Prescribed or Continued at Discharge Venous thromboembolism Inclusion Criteria VTE Diagnosis No VTE Type NONE VTE Confirmed by (Test) NONE Discharge Core Measures - Per Current guidelines, there needs to be overlap - treatment for the first 5 days of Warfarin therapy. - If discharged on Warfarin prior to 5 days of - overlap therapy, the patient will need to be - assessed for post discharge needs including - *Post discharge parental anticoagulation - *Warfarin and/or parental anticoagulation education - *Follow up date to check INR post discharge At least 5 days overlap therapy as Inpatient No Meds if any: Prescribed or Continued at Discharge Note: Overlap Therapy is Warfarin and Anticoagulant Meds if any: NOT Prescribed or Continued at Discharge
[2016-12-09 19:45] VITALS: BP 146/64
--- NOTE | 2016-12-09 20:20 | NUR ---
1630-PT LEFT FLOOR VIA STRETCHER FOR OR. 184- REPORT RECEIVED FROM [facility]. PT HAD I&D AND WOUND VAC PLACEMENT TO R FOOT. LOCAL AND IV SEDATION. VSS DURING PROCEDURE. 2L NC TO MAINTAIN O2 SAT 94-98% DURING PROCEDURE. TRANSPORT TO BE CALLED BY [facility] AFTER ANOTHER SET OF VITALS. ONCOMING RN TO RECEIVE PT.
--- NOTE | 2016-12-09 22:06 | NUR ---
RECEIVED PT FROM PACU @4590. A/O X3. VSS. MARCIG TO R FOOT CDI W/WOUNDVAC IN PLACE. C/O PAIN IN BACK AND BLE. ROXICODONE ADMINISTERED. CONTACT PREC MAINTAINED. SIZEWISE IN PLACE. BS 132. PT HAD HIS MEAL BEFORE TAKING THE PAIN MED. NO ACUTE DISTRESS. WILL MONITOR.
[2016-12-09 23:31] VITALS: BP 102/80
[2016-12-10 01:00] VITALS: BP 142/64
--- NOTE | 2016-12-10 07:23 | PN- Housestaff ---
[facility] 0722: Subjective Follow-up For: Right heel nonhealing ulcer Subjective: Afebrile, No acute overnight events reported, patient currently has no complaints except mild right foot pain. Patient still has Mcgregor catheter placed. Review of Systems Constitutional: Denies: chills, fever, weakness. Cardiovascular: Reports: no symptoms. Respiratory: Reports: no symptoms. Gastrointestinal: Reports: no symptoms. Genitourinary: Reports: no symptoms. Objective Last 24 Hrs of Vital Signs/I&O Vital Signs Date Time Temp Pulse Resp B/P Pulse O2 O2 Flow FiO2 Ox Delivery Rate 12/10 0801 98.0 70 20 118/70 90 Room Air 12/10 0725 97.8 67 20 110/76 92 Room Air 12/10 0100 98.2 68 19 142/64 92 Room Air 12/09 2331 97.8 75 20 102/80 92 12/09 1945 98.0 66 18 146/64 96 Room Air 12/09 1518 Room Air 2.0L 12/09 1513 Room Air 2.0L 12/09 1459 Room Air 2.0L 12/09 1358 97.0 78 20 142/60 92 Room Air Intake & Output 12/10 1600 12/10 0800 12/10 0000 Intake Total 500 300 Output Total 650 500 Balance -150 -200 Intake, IV 400 100 Intake, Oral 100 200 Number 1 Bowel Movements Output, Urine 650 500 Physical Exam General Appearance: Alert, Oriented X3, Cooperative, No Acute Distress Skin: No Rashes, No Breakdown HEENT: Atraumatic, PERRLA, EOMI, Mucous Membr. moist/pink Cardiovascular: Regular Rate, Normal S1, Normal S2, No Murmurs Lungs: Clear to Auscultation, Normal Air Movement Abdomen: Normal Bowel Sounds, Soft, No Tenderness Neurological: Normal Speech Extremities: left BKA, right foot dresses and covered with bandage, wound vac on place Current Medications: Current Medications Sig/Puma Start time Last Medication Dose Route Stop Time Status Admin Abacavir Sulfate 600 MG DAILY 12/03 1245 AC 12/09 PO 2111 Acetaminophen 650 MG Q6P PRN 12/02 183 AC PO Alprazolam 0.5 MG Q4 HRS NEEDED PRN 12/02 2029 DC 12/09 PO 03/13 2029 1949 Ampicillin Sodium/ 3,000 MG Q6 12/05 1800 DC 12/09 Sulbactam Sodium IV 1139 Sodium Chloride 100 ML Atazanavir 300 MG DAILY 12/03 1245 AC 12/09 PO 211 Cephalexin 500 MG Q6H 12/10 0200 AC 12/10 PO 0142 Cephalexin 500 MG Q6 12/09 1800 DC 12/09 PO 204 Dextrose/Sodium 1,000 ML Q20H 12/09 0000 AC 12/10 Chloride IV 0420 Docusate Sodium 100 MG DAILY 12/08 1000 AC 12/09 PO 0936 Gabapentin 300 MG TID 12/03 1600 AC 12/09 PO 204 Heparin Sodium 5,000 UNIT Q8 12/02 2200 AC 12/10 (Porcine) [place] 0604 Hydromorphone HCl 2 MG .STK-MED ONE 12/09 1748 DC IM 12/09 1749 Lactulose 20 GM DAILY PRN 12/03 1245 AC 12/07 PO 1350 Lamivudine 150 MG DAILY 12/03 1237 AC 12/09 PO 2110 Meperidine HCl 50 MG .STK-MED ONE 12/09 1858 DC IM 12/09 1859 Midazolam HCl 2 MG .STK-MED ONE 12/09 1741 DC IM 12/09 1742 Morphine Sulfate 2 MG Q4P PRN 12/02 1830 DC IV Oxycodone HCl 40 MG BID 12/03 2200 AC 12/09 PO 2111 Oxycodone HCl 30 MG Q4-6 PRN PRN 12/03 1430 AC 12/10 PO 0821 Ritonavir 100 MG DAILY 12/03 1245 AC 12/09 PO 2111 Trazodone HCl 200 MG QPM 12/03 2200 AC 12/09 PO 2045 Assessment/Plan Assessment: This is a 56-year-old gentleman with extensive past medical history was presented with chronic right lower extremity ulcer, which has become purulent and draining over the last 48-72 hours. #Right heel nonhealing ulcer Patient went for an MRI 12/04/2016 which was positive for osteomyelitis, right heel bone culture is growing Diphteroids and no other organism. Initially he was given Unasyn now he is on antibiotic cephalexin 500 mg but only to cover UTI * Continue OxyContin 40 mg twice a day by mouth * Continue Roxicodone 30 mg every 4 by mouth when necessary #UTI Patient has a positive UA and grew Escherichia coli on the culture(December 02), this is a non-complicated lower urinary tract infection * Continue cephalexin 500 every 6 hours for a total 5 days #Chronic back pain Patient pain is well controlled with current regimen * Same medication use to cover heel nonhealing ulcer pain #ABDIRASHID on top of CKD Creatinine yesterday was 1.9 decreased from 2.2. * We will avoid all nephrotoxic * We will repeat BEP tomorrow #History of anxiety * Continue alprazolam 0.5 mg. Regular diet DVT Ppx Heparin SC Full code Problem List: 1. Cellulitis of right foot Pain Ratin Pain Location: back and foot Pain Goal: Remain pain free Pain Plan: see A&P Tomorrow's Labs & Rationales: SEE A&P BETH WAITE MD 12/10/16 0935: Attending Review Statement Attending Statement Attending Statement: examined this patient, discuss w/resident/PA/MANAGER SECURITY AND SAFETY, agreed w/resident/PA/MANAGER SECURITY AND SAFETY, reviewed EMR data (avail), discussed with nursing, amended to note Attending Assessment/Plan: Patient seen and examined. Resting comfortably and not in any acute distress. No issues overnight reported by nursing staff. Afebrile hemodynamically stable. Overall notes from procedure yesterday appreciated. On examination surgical dressing over the right foot. Wound VAC in place. Continue to follow patient off on antibiotic therapy as recommended by the podiatry service. Patient is refusing to go to rehabilitation stating that he has made arrangements for care at home. Once weather improves tomorrow discharge plans will be reevaluated with the patient. full code BETH WAITE MD 12/10/16 0935: Attending MD Review Statement Attending Statement Attending Statement: examined this patient, discuss w/resident/PA/MANAGER SECURITY AND SAFETY, agreed w/resident/PA/MANAGER SECURITY AND SAFETY, reviewed EMR data (avail), discussed with nursing, amended to note Attending Assessment/Plan: Patient seen and examined. Resting comfortably and not in any acute distress. No issues overnight reported by nursing staff. Afebrile hemodynamically stable. Overall notes from procedure yesterday appreciated. On examination surgical dressing over the right foot. Wound VAC in place. Continue to follow patient off on antibiotic therapy as recommended by the podiatry service. Patient is refusing to go to rehabilitation stating that he has made arrangements for care at home. Once weather improves tomorrow discharge plans will be reevaluated with the patient.
[2016-12-10 07:25] VITALS: BP 110/76
[2016-12-10 08:01] VITALS: BP 118/70
[2016-12-10 14:07] VITALS: BP 144/60
[2016-12-10 21:14] VITALS: BP 130/80
[2016-12-11 06:37] VITALS: BP 112/70
--- NOTE | 2016-12-11 08:25 | PN- Housestaff ---
[facility] 0825: Subjective Follow-up For: Right heel nonhealing ulcer Subjective: Patient is laying on bed looks relaxed and comfortable, he reported that his right foot pain is adequately managed. Patient has wound VAC on. Patient is denying a short-term rehabilitation and he would like to be discharged home, his nephew will move to live with him and will help him with that. He denies fever, chills, chest pain, abdominal pain, or any other complaint Review of Systems Constitutional: Reports: see HPI. Denies: no symptoms, chills, fever. Objective Last 24 Hrs of Vital Signs/I&O Vital Signs Date Time Temp Pulse Resp B/P Pulse O2 O2 Flow FiO2 Ox Delivery Rate 12/11 1409 97.9 78 18 124/60 92 Room Air 12/11 0637 97.2 73 18 112/70 92 Nasal Cannula 12/11 0000 92 Nasal 1.0L Cannula 12/10 2114 97.9 70 20 130/80 92 Nasal 1.0L Cannula Intake & Output 12/11 1600 12/11 0800 12/11 0000 Intake Total 760 840 Output Total 1999 1899 1999 Balance -1999 -1140 -1160 Intake, IV 400 400 Intake, Oral 360 440 Number 0 Bowel Movements Output, Urine 1999 1899 1999 Physical Exam General Appearance: Alert, Oriented X3, Cooperative, No Acute Distress Skin: No Rashes HEENT: Atraumatic, PERRLA, EOMI, Mucous Membr. 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 Current Medications: Current Medications Sig/Puma Start time Last Medication Dose Route Stop Time Status Admin Abacavir Sulfate 600 MG DAILY 12/03 1245 AC 12/11 PO 0850 Acetaminophen 650 MG Q6P PRN 12/02 1830 AC PO Alprazolam 0.5 MG Q6P PRN 12/10 1630 AC 12/11 PO 12/17 1629 1437 Atazanavir 300 MG DAILY 12/03 1245 AC 12/11 PO 0850 Cephalexin 500 MG Q6H 12/10 0200 DC 12/11 PO 1437 Dextrose/Sodium 1,000 ML Q20H 12/09 0000 DC 12/11 Chloride IV 0155 Docusate Sodium 100 MG DAILY 12/08 1000 AC 12/11 PO 0850 Gabapentin 300 MG TID 12/03 1600 AC 12/11 PO 1544 Heparin Sodium 5,000 UNIT Q8 12/02 2200 AC 12/11 (Porcine) SC 1437 Lactulose 20 GM DAILY PRN 12/03 1245 AC 12/07 PO 1350 Lamivudine 150 MG DAILY 12/03 1237 AC 12/11 PO 0850 Oxycodone HCl 30 MG Q4-6 PRN PRN 12/10 1900 AC 12/11 PO 1544 Oxycodone HCl 40 MG BID 12/03 2200 AC 12/11 PO 0850 Patient Medication 1 ED .STK-MED ONE 12/11 1337 DC Teaching ED 12/11 1338 Ritonavir 100 MG DAILY 12/03 1245 AC 12/11 PO 0850 Trazodone HCl 200 MG QPM 12/03 2200 AC 12/10 PO 2042 Assessment/Plan Assessment: This is a 56-year-old gentleman with extensive past medical history was presented with chronic right lower extremity ulcer, which has become purulent and draining over the last 48-72 hours. #Right heel nonhealing ulcer Patient went for an MRI 12/04/2016 which was positive for osteomyelitis, right heel bone culture is growing Diphteroids and no other organism. Initially he was given Unasyn now. Patient most likely does not have osteomyelitis we will watch him off antibiotic. Patient is refusing short-term rehabilitation and he would like to have the wound VAC order to his house, he added to his nephew will move and live with him. * Continue OxyContin 40 mg twice a day by mouth * Continue Roxicodone 30 mg every 4 by mouth when necessary * client hr manager is involved in the discharge plan #Chronic back pain Patient pain is well controlled with current regimen * Same medication use to cover heel nonhealing ulcer pain #History of anxiety * Continue alprazolam 0.5 mg. Regular diet DVT Ppx Heparin SC Full code Problem List: 1. HIV (human immunodeficiency virus infection) 2. Open wound of foot 3. Cellulitis of right foot Pain Ratin Pain Location: Right foot Pain Goal: Remain pain free Pain Plan: See A&P Tomorrow's Labs & Rationales: See A&P KEO MD,HORACIO 12/11/16 1237: Attending MD Review Statement Attending Statement Attending MD Statement: examined this patient, discuss w/resident/PA/TUBING MILL SETTER, agreed w/resident/PA/TUBING MILL SETTER, reviewed EMR data (avail), discussed with nursing, discussed with case mgmt, amended to note Attending Assessment/Plan: Patient seen and examined, doing well. Denies any pain. Patient had a wound VAC on placed by Dr. George on 12/09/2016. No antibiotics are indicated as I have discussed with Dr. George. Bone culture from an initial procedure grew only diphtheroids. Patient is medically stable for discharge today if arrangements can be made for home wound VAC and home services. We'll order physical therapy evaluation. Continue all current medications including patient 's HIV meds, current pain regimen as well as for DVT prophylaxis he is on heparin subcutaneous.
[2016-12-11 14:09] VITALS: BP 124/60
--- NOTE | 2016-12-11 14:59 | PN- Podiatry ---
Subjective Subjective: Patient seen at bedside with no new complaints. Denies nausea, vomiting, fever, chills. Objective Vital Signs and I&Os Vital Signs Date Time Temp Pulse Resp B/P Pulse O2 O2 Flow FiO2 Ox Delivery Rate 12/11 1409 97.9 78 18 124/60 92 Room Air 12/11 0637 97.2 73 18 112/70 92 Nasal Cannula 12/11 0000 92 Nasal 1.0L Cannula 12/10 2114 97.9 70 20 130/80 92 Nasal 1.0L Cannula Intake & Output 12/11 1600 12/11 0800 12/11 0000 12/10 1600 12/10 0800 12/10 0000 Intake Total 760 840 300 500 300 Output Total 1999 1899 1999 800 650 500 Balance -2000 -1140 -1160 -500 -150 -200 Intake, IV 400 400 400 100 Intake, Oral 360 440 300 100 200 Number 0 1 Bowel Movements Output, Urine 1999 1899 1999 800 650 500 Physical Exam: VAC in place right foot with approximately 50 cc serosanguinous drainage to the canister. Wound bed granular with minimal active drainage. No cellulitis. No probing, no undermining. Wound measures 6cm x 6cm x 1cm. Assessment/Plan Assessment/Plan Cellulitis, non-healing ulcer right heel. Continue with IV antibiotics while in house. Mon/Wed/Fri VAC changes. Will follow up with patient in wound center next week. Core Measures/Miscellaneous Venous Thromboembolism VTE Risk Factors: Age > 40, Immobility, paresis, Surgery VTE Contraindications: No Contraindications VTE Diagnosis: No VTE Type: NONE VTE Confirmed by (Test): NONE Beta Bob Is Beta Bob a Home Med? No Antibiotics Is Patient on Antibiotics? Yes Attending MD Review Statement Attending Statement Attending MD Statement: examined this patient
[2016-12-11 22:53] VITALS: BP 132/80
[2016-12-12 06:40] VITALS: BP 112/68
--- NOTE | 2016-12-12 07:40 | PN- Housestaff ---
[facility] 0739: Subjective Follow-up For: Right heel nonhealing ulcer Subjective: Afebrile, looks relaxed and comfortable, he reported that his right foot pain is adequately managed. Patient has wound VAC on. Patient is denying a short-term rehabilitation, he just received a wound VAC that he will take home, patient most likely will be discharged today. Review of Systems Constitutional: Denies: chills, fever, malaise, weakness. Cardiovascular: Denies: chest pain, palpitations. Respiratory: Denies: cough, short of breath, sputum production. Gastrointestinal: Denies: abdominal pain, constipation, diarrhea, nausea, vomiting. Genitourinary: Denies: dysuria, hematuria. Musculoskeletal: Denies: back pain. Objective Last 24 Hrs of Vital Signs/I&O Vital Signs Date Time Temp Pulse Resp B/P Pulse O2 O2 Flow FiO2 Ox Delivery Rate 12/12 0640 98.1 63 20 112/68 92 Room Air 12/12 0000 91 Room Air 12/11 2253 97.8 74 20 132/80 91 12/11 1409 97.9 78 18 124/60 92 Room Air Intake & Output 12/12 1600 12/12 0800 12/12 0000 Intake Total 500 500 Output Total 900 1100 Balance -400 -600 Intake, Oral 500 500 Number 0 Bowel Movements Output, Urine 900 1100 Physical Exam General Appearance: Alert, Oriented X3, Cooperative, No Acute Distress Skin: No Rashes HEENT: Atraumatic, PERRLA, EOMI, Mucous Membr. 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 Current Medications: Current Medications Sig/Puma Start time Last Medication Dose Route Stop Time Status Admin Abacavir Sulfate 600 MG DAILY 12/03 1245 AC 12/11 PO 0850 Acetaminophen 650 MG Q6P PRN 12/02 1830 AC PO Alprazolam 0.5 MG Q6P PRN 12/10 1630 AC 12/12 PO 12/17 1629 0308 Atazanavir 300 MG DAILY 12/03 1245 AC 12/11 PO 0850 Cephalexin 500 MG Q6H 12/10 0200 DC 12/11 PO 1437 Dextrose/Sodium 1,000 ML Q20H 12/09 0000 DC 12/11 Chloride IV 0155 Docusate Sodium 100 MG DAILY 12/08 1000 AC 12/11 PO 0850 Gabapentin 300 MG TID 12/03 1600 AC 12/11 PO 2052 Heparin Sodium 5,000 UNIT Q8 12/02 2200 AC 12/12 (Porcine) SC 0517 Lactulose 20 GM DAILY PRN 12/03 1245 AC 12/07 PO 1350 Lamivudine 150 MG DAILY 12/03 1237 AC 12/11 PO 0850 Oxycodone HCl 30 MG Q4-6 PRN PRN 12/10 1900 AC 12/12 PO 0518 Oxycodone HCl 40 MG BID 12/03 2200 AC 12/11 PO 2052 Patient Medication 1 ED .STK-MED ONE 12/11 1337 DE Teaching ED 12/11 1338 Ritonavir 100 MG DAILY 12/03 1245 AC 12/11 PO 0850 Trazodone HCl 200 MG QPM 12/03 2200 AC 12/11 PO 2052 Assessment/Plan Assessment: This is a 56-year-old gentleman with extensive past medical history was presented with chronic right lower extremity ulcer, which has become purulent and draining over the 48-72 hours prior to the admission #Right heel nonhealing ulcer Patient went for an MRI 12/04/2016 which was positive for osteomyelitis, right heel bone culture is growing Diphteroids and no other organism. Initially he was given Unasyn now. Patient most likely does not have osteomyelitis we will watch him off antibiotic. Patient is refusing short-term rehabilitation and he would like to have the wound VAC order to his house, he added to his nephew will move and live with him. * Continue OxyContin 40 mg twice a day by mouth * Continue Roxicodone 30 mg every 4 by mouth when necessary * ecommerce manager is involved in the discharge plan * Patient will be discharged today #Chronic back pain Patient pain is well controlled with current regimen * Same medication use to cover heel nonhealing ulcer pain #History of anxiety * Continue alprazolam 0.5 mg. Regular diet DVT Ppx Heparin SC Full code Problem List: 1. Cellulitis of right foot 2. HIV (human immunodeficiency virus infection) Pain Ratin Pain Location: Right foot Pain Goal: Pain 4 or less Pain Plan: See assessment and plan Tomorrow's Labs & Rationales: Most likely discharged today HORACIO CROWLEY MD 12/12/16 1453: Attending MD Review Statement Attending Statement Attending MD Statement: examined this patient, discuss w/resident/PA/LAND DEVELOPMENT PROJECT MANAGER, agreed w/resident/PA/LAND DEVELOPMENT PROJECT MANAGER, reviewed EMR data (avail), discussed with nursing, discussed with case mgmt, amended to note Attending Assessment/Plan: Patient seen and examined, feels much better. Overall denies any complaints. He has a wound VAC that was delivered. He is also to go home today. Symptomatically discontinued and he is not having any symptoms of urinary discomfort. From a podiatry standpoint, no antibiotics were needed as per podiatry. His Mcgregor catheter will be discontinued before he leaves. He'll follow Dr. George as well as his primary care doctor as an outpatient. He also follows up with Dr. Morocho up in [place] for his HIV.
[2017-01-13] MEDS ORDERED: LAMIVUDINE PO (15:36)
[2017-01-13] MEDS ORDERED: TIVICAY50 M1 PO (15:36)
[2017-01-13] MEDS ORDERED: XANAX0.5 M1 PO (15:37)
== END 2016-12-12 12:03 | disposition home health service (06) | DRG 570 ==
LOC: ENRESERVDT → ENRESERVTM → ERH 14:46 → 2NA 17:27 → ENPENDDIS 17:27 → ERHI 17:27 → EDBEDREQ 18:53 → 2NA 21:25
PROVIDERS: Internal Medicine Infectious Disease; Physician Assistant Medical; Student in an Organized Health Care Education/Training Program; ADMIT Student in an Organized Health Care Education/Training Program
PROC: 0J9Q0ZZ Drainage of Right Foot Subcutaneous Tissue and Fascia, Open Approach (ICD-10-PCS; principal; 2016-12-05)
PROC: 0QBL0ZX Excision of Right Tarsal, Open Approach, Diagnostic (ICD-10-PCS; principal; 2016-12-05)
PROC: 0JBQ0ZZ Excision of Right Foot Subcutaneous Tissue and Fascia, Open Approach (ICD-10-PCS; principal; 2016-12-05)
PROC: 0JBQ0ZZ Excision of Right Foot Subcutaneous Tissue and Fascia, Open Approach (ICD-10-PCS; 2016-12-09)
PROC: 0J9Q0ZZ Drainage of Right Foot Subcutaneous Tissue and Fascia, Open Approach (ICD-10-PCS; 2016-12-09)
DX: L89.613 Pressure ulcer of right heel, stage 3 (principal); N17.9 Acute kidney failure, unspecified; N18.3 Chronic kidney disease, stage 3 (moderate); L97.119 Non-pressure chronic ulcer of right thigh with unspecified severity; N39.0 Urinary tract infection, site not specified; I12.9 Hypertensive chronic kidney disease with stage 1 through stage 4 chronic kidney disease, or unspecified chronic kidney disease; F17.210 Nicotine dependence, cigarettes, uncomplicated; Z21 Asymptomatic human immunodeficiency virus [HIV] infection status; B19.20 Unspecified viral hepatitis C without hepatic coma; M54.9 Dorsalgia, unspecified
CPT/HCPCS: 2NAP; 75657; 87070; 87075; 36415; 73610-RT; 73630-RT; 80307; 81001; 82436; 87040; 87071; 87086; 87536; 88307; 93005; 93010; 97162-GP; J0131; J1644; J2001; J7042

== ENCOUNTER → 2017-01-14 | Day surgery (SDC) | payer OTHER, MEDICARE ==
[~2017-01-14] VITALS: Ht 195.6 cm; Wt 104.3 kg
[~2017-01-14] MED LIST: ABACAVIR300 MG PO; ALPRAZOLAM0.5 M4 PO; EPIVIR150 MG PO; GABAPENTIN300 M2 PO; LACTULOSE10 GM/153 PO; LAMIVUDINE PO; NORVIR100 M2 PO; OXYCODONE HCL E40 MG PO; OXYCODONE HCL30 M1 PO; OXYCONTIN40 M1 PO; REYATAZ300 MG PO; TIVICAY50 M1 PO; TRAZODONE HCL100 M1 PO; XANAX0.5 M1 PO
--- NOTE | 2017-01-14 15:21 | Operative Report ---
Operative/Inv Procedure Report Surgery Date: 01/14/17 Name of Procedure: 1 split-thickness skin graft right heel 2 intraoperative application of negative pressure wound therapy 3 intraoperative administration of ankle block anesthesia Pre-Operative Diagnosis: 1 nonhealing ulcer right heel 2 diabetic peripheral neuropathy Post-Operative Diagnosis: The same Estimated Blood Loss: scant Surgeon/Bonding Machine Setter: BRETT GOMES DPM Anesthesia: moderate sedation, block Operative/Procedure Note Note: After obtaining informed consent the patient was brought to the operating room and placed on the operating table in the supine position. The patient was then securely fastened to the operating table utilizing safety belt. After administration of IV sedation, 10 mL of 0.5% Marcaine plain was infiltrated about the patient's right ankle. The right foot ankle and leg were then scrubbed prepped and draped in usual aseptic manner. Attention was directed to the lateral aspect of the right heel, where an 8 cm x 4 cm Cedeno grade 2 ulceration was identified. There is superficial slough overlying an otherwise granular wound bed. The wound bed was gently debrided of any overlying slough with a curet. Nipple was then irrigated with 3 L of normal sterile saline infusion 50,000 units of bacitracin. Following this a 17 1007 inch split- thickness skin graft was elevated from the lateral right leg. It was then meshed a ratio of 1/2-1. It was then placed in the wound bed and fixated at its margins with skin mingo. This was followed by the application of Adaptic and negative pressure wound therapy. The donor site was then dressed with bacitracin Xeroform Kerlix and an Brown wrap. Kerlix and Brown wrap were then placed about the patient's right foot. The patient was noted to tolerate both procedure and anesthesia well and the patient was transported from the operating room to recovery with vital signs stable.
== END ==
LOC: STS 01:39
DX: L97.412 Non-pressure chronic ulcer of right heel and midfoot with fat layer exposed (principal); Z21 Asymptomatic human immunodeficiency virus [HIV] infection status; B19.20 Unspecified viral hepatitis C without hepatic coma; F17.200 Nicotine dependence, unspecified, uncomplicated
CPT/HCPCS: J0690; J2001; J2250

== ENCOUNTER 2018-05-18 06:49 | Inpatient (IN) | payer OTHER, MEDICARE ==
[~2018-05-18] VITALS: Ht 195.6 cm; Wt 84.4 kg
[~2018-05-18 06:49] MED LIST changes: +AMOXICILLIN500 M2 PO; +ARTIFICIAL TEA1 EACH OS; +CALCIUM 500 +1 EAC5 PO; +FOLIC ACID1 M1 PO; +LEXAPRO10 M1 PO; +MULTIVITAMINS1 EAC9 PO; +NEURONTIN300 M1 PO; +OMNIPRED10 ML OS; +POTASSIUM CHLO20 ME2 PO; +PROAIR HFA8.5 GM INH; +VITAMIN B-1100 MG PO
--- NOTE | 2018-05-18 07:39 | ED MVC/FALL/TRAUMA COMPLAINT ---
History of Present Illness General Chief Complaint: Fall Stated Complaint: BIBA SLIP AND FALL, -LOC, NOW CAN'T MOVE HIS LEGS Source: patient, old records Exam Limitations: poor historian Vital Signs & Intake/Output Vital Signs & Intake/Output Vital Signs Date Time Temp Pulse Resp B/P B/P Pulse O2 O2 Flow FiO2 Mean Ox Delivery Rate 05/27 0800 Room Air ED Intake and Output 05/28 0000 05/27 1200 Intake Total 1130 1000 Output Total 3000 Balance 1130 -2000 Intake, IV 650 1000 Intake, Oral 480 Number 1 Bowel Movements Output, Urine 3000 Allergies Coded Allergies: erythromycin base (UNKNOWN 12/02/16) Reconcile Medications Abacavir Sulfate (Abacavir) 300 MG TABLET 1 TAB PO DAILY ANTIVIRAL (Reported) Albuterol Sulfate (Proair Hfa) 90 MCG HFA.AER.AD 2 PUF INH Q4-6 PRN PRN ASTHMA (Reported) Alprazolam (Xanax) 0.5 MG TABLET 1 TAB PO Q6P PRN ANXIETY/SLEEP (Reported) Calcium Carbonate/Vitamin D3 (Calcium 500 + D Tablet) (Unknown Strength) TABLET (Unknown Dose) PO DAILY SUPPLEMENT (Reported) Dextran 70/Hypromellose (Artificial Tears) 1 EACH DROPERETTE 1 GTT OS BID OCULAR (Reported) Dolutegravir Sodium (Tivicay) 50 MG TABLET 1 TAB PO DAILY HIV (Reported) Folic Acid 1 MG TABLET 1 MG PO DAILY VITAMIN DEFICIENCY Gabapentin (Neurontin) 300 MG CAPSULE 1 CAP PO BID NEUROPATHY (Reported) Lactulose 10 GRAM/15 ML SOLUTION 30 ML PO QAM ENCEPHALOPATHY (Reported) Multiple Vitamin (Multivitamins) 1 EACH TABLET 1 TAB PO DAILY SUPPLEMENT ( Reported) Oxycodone HCl 30 MG TABLET 1 TAB PO Q4-6H PRN PAIN (Reported) Oxycodone HCl (Oxycontin) 40 MG TAB.ER.12H 1 TAB PO BID CHRINIC PAIN ( Reported) Potassium Chloride 20 MEQ TAB.ER.PRT 1 TAB PO DAILY Hypokalemia Prednisolone Acetate (Omnipred) 1 % DROPS.SUSP 1 GTT OS 4 TIMES/DAY OCULAR ( Reported) Sodium Bicarbonate 650 MG TABLET 2 TAB PO Q6 acidosis/ABDIRASHID . Thiamine HCl (Vitamin B-1) 100 MG TABLET 100 MG PO DAILY VITAMIN DEFICIENCY Trazodone HCl 100 MG TABLET 200 MG PO QHS PRN SLEEP (Reported) Triage Note: 58M BIBA AFTER SLIP AND FALL IN BATHROOM. DENIES HEADSTRIKE OR LOC. C/C IS THAT HE CANNOT MOVE HIS LEGS. ARRIVES W LEGS AND HIPS FLEXED AND CONTRACTED. BLEEDING OBSERVED TO RIGHT TOES. SKIN DISCOLORED. POOR HYGIENE NOTED, ? ABILITY TO PERFORM ADL'S. WHEELCHAIR BOUND AT BASELINE, Yeimy MANTILLA. Triage Nurses Notes Reviewed? yes Onset: Abrupt Duration: hour(s):, constant, continues in ED, getting worse Severity: severe Injuries/Fall Location: right groin, low back Method of Injury: fall Loss of Consciousness: no loss of consciousness HPI: Patient presents for evaluation of right groin and low back pain status post fall about 28-30 hours ago. Patient states since falling he has been unable to bear weight on his "good leg (the right lower extremity). Past History Travel History Traveled to [place] past 21 day No Medical History Any Pertinent Medical History? see below for history Neurological: NONE EENT: NONE Cardiovascular: NONE Respiratory: asthma Gastrointestinal: NONE Hepatic: hepatitis C (s/p Tx with Whit) Renal: chronic kidney disease, neurogenic bladder Musculoskeletal: BACK ISSUES Psychiatric: anxiety Endocrine: NONE Blood Disorders: HIV Cancer(s): NONE BROTHEL KEEPER/Reproductive: NONE History of MRSA: Yes History of VRE: No History of CDIFF: No Influenza Vaccine: 06/29/16 Surgical History Surgical History: Yeimy MANTILLA status post back surgeries Psychosocial History Who do you live with Patient/Self Services at Home Nursing What is your primary language Emir[place] Tobacco Use: Refused to answer Family History Hx Contributory? No Review of Systems Review of Systems Constitutional: Reports: no symptoms. Eyes: Reports: no symptoms. Ears, Nose, Throat, Mouth: Reports: no symptoms. Respiratory: Reports: no symptoms. Cardiovascular: Reports: no symptoms. Gastrointestinal/Abdominal: Reports: no symptoms. Genitourinary: Reports: no symptoms. Musculoskeletal: Reports: see HPI. Skin: Reports: no symptoms. Neurological/Psychological: Reports: no symptoms. All Other Systems: Reviewed and Negative Physical Exam Physical Exam General Appearance: see below Comments: Gen.: Well-nourished, well-developed, no acute respiratory distress. Head: Normocephalic, atraumatic, nontender. Eyes: Normal inspection bilaterally, aruna, EOMI Ears: Normal inspection bilaterally Nose: Normal inspection Throat/mouth : Moist mucosa Neck: Supple, full range of motion, no goiter, nontender Heart: Regular rate and rhythm, no murmurs rubs or gallops Lungs: Clear to auscultation bilaterally with normal air entry Chest: Nontender Back: Normal range of motion (with pain), tenderness over the lumbar spine the patient states is more or less chronic due to prior back surgeries Abdomen: Soft, nontender, nondistended, normal bowel sounds Pelvis: Stable and nontender Extremities: Left BKA, right lower extremity: Mild tenderness with range of motion of the right hip, right knee, leg/ankle and foot are nontender, left foot shows chronic skin changes Neurologic: Cranial nerves grossly intact, speech is clear Skin: warm and dry and without ecchymoses or soft tissue swelling or erythema Psychiatric: Calm, cooperative, no apparent delusions or hallucinations Core Measures ACS in differential dx? No CVA/TIA Diagnosis No Sepsis Present: No Sepsis Focused Exam Completed? No Progress Differential Diagnosis: ANEMIA, DEHYDRATION, ELECTROLYTE ABNORMALITY, METABOLIC ACIDOSIS,OCCULT FRACTURE, SPRAIN Plan of Care: Orders Procedure Date/time Status Therapeutic Activities 05/27 UNK Complete Therapeutic Exercise 05/27 UNK Complete Discharge Patient 05/27 UNK Active MISSING MEDICATION FORM 05/27 UNK Active INCENTIVE SPIROMETRY TRX CHG 05/26 UNK Complete Diagnostic Imaging: Discussed w/RAD: Radiology Read. Radiology Impression: PATIENT: DEIRDRE STEINER JR PRESENT AGE: 58 PATIENT ACCOUNT NO: [id number] : 56 LOCATION: [facility] ORDERING PHYSICIAN: Elvis Milan MD SERVICE DATE: 05/18/18 EXAM TYPE : RAD - XRY-HIP 2-3 VIEWS, RIGHT EXAMINATION: XR HIP, RIGHT CLINICAL INFORMATION : Status post fall. Unable to bear weight due to pain. COMPARISON: None TECHNIQUE: Two views of the right hip. FINDINGS: The right femoral head is normally positioned within the acetabular fossa. No definite hip fracture is seen. The visualized portions of the right hemipelvis are intact. Degenerative changes are seen at the hip joint without joint space loss. The visualized soft tissues appear normal. IMPRESSION: No right hip subluxation or definite fracture. Mild osteoarthritic changes without joint space loss. DICTATED BY: Giovany Koehler MD DATE/TIME DICTATED:05/18/18809 SYRUP MAKER:DONY DATE/TIME TRANSCRIBED:05/18/18809 CONFIDENTIAL, DO NOT COPY WITHOUT APPROPRIATE AUTHORIZATION. <Electronically signed in Other Vendor System> SIGNED BY: Giovany Koehler MD 05/18/18815, PATIENT: DEIRDRE STEINER JR PRESENT AGE: 58 PATIENT ACCOUNT NO: [id number] : 56 LOCATION: [facility] ORDERING PHYSICIAN: Elvis Milan MD SERVICE DATE: 05/18/18737 EXAM TYPE: RAD - XRY-LUMBOSACRAL SPINE AP & LAT EXAMINATION: XR LUMBOSACRAL SPINE CLINICAL INFORMATION: Status post fall with lower back pain and tenderness. COMPARISON: No relevant prior imaging. TECHNIQUE: 3 views of the lumbar spine were obtained. FINDINGS: There are chronic postoperative changes of a decompressive laminectomy at L3, L4, and L5 and there is a spinal fusion with a unilateral transpedicular hardware construct extending from L4 to L5. Hardware is grossly intact and there is no evidence of suggest loosening or failure. Alignment is grossly maintained. No evidence of acute fracture. Sacroiliac joints are symmetric. Visualized bowel gas pattern is normal. There is degenerative arthrosis of both hips that is partially included within the field- of-view of this examination. IMPRESSION: Chronic changes of a multilevel laminectomy and spinal fusion with a unilateral transpedicular hardware construct extending from L4 to L5. Grossly no evidence of hardware loosening or failure. No evidence of acute fracture and no spinal subluxation. DICTATED BY: Matt Mckeon MD DATE/TIME DICTATED:05/18/18808 SYRUP MAKER: DONY DATE/TIME TRANSCRIBED:05/18/18808 CONFIDENTIAL, DO NOT COPY WITHOUT APPROPRIATE AUTHORIZATION. <Electronically signed in Other Vendor System> SIGNED BY: Matt Mckeon MD 05/18/18815 Comments: 05/18/2018 9:29:35 AM I have updated Gopi on test results and discussed his case with case management. I have paged the hospitalist and marbleizer. 05/18/2018 9:55:31 AM patient's case discussed with Dr. FOLEY who felt the patient might require intensive care. Patient's case discussed with Dr. Velasquez will evaluate the patient in the emergency department. Awaiting marbleizer. Patient will be bolused 500 mL normal saline followed by continuous infusion. 05/18/2018 10:14:55 AM patient's case discussed with Dr. Green who recommends Mcgregor catheter, IV fluids and a CK level. Patient is currently being evaluated by Dr. Velasquez. Departure Departure Disposition: STILL A PATIENT Condition: Stable Clinical Impression Primary Impression: ABDIRASHID (acute kidney injury) Secondary Impressions: Pain of right lower extremity Referrals: Radha Morocho MD (PCP/Family) Departure Forms: Customer Survey General Discharge Information Prescriptions: Current Visit Scripts Sodium Bicarbonate 2 TAB PO Q6 #240 TAB . Admission Note Spoke With: Juwan Foley MD Documentation of Exam: Documentation of any treatments & extenuating circumstances including Concerns Regarding Discharge (functional status, medication knowledge or non-compliance, living conditions, etc.) that warrant an admission rather than observation: Patient presents with a acute kidney injury placing him at risk of hyperkalemia, dysrhythmia and worsening metabolic acidosis. The patient cannot be treated safely as an outpatient would likely return in worse clinical condition. While in the hospital the patient should have renal functions monitored and be treated with IV fluids. Nephrology consultation should be considered for the possibility of dialysis. Given the patient's musculoskeletal pain and history of left lower extremity amputation, physical therapy consultation should be considered to assess for overall functional capacity and the need for short-term rehabilitation. Given this patient's multiple medical comorbidities I feel his treatment at the [facility] [place] will likely be prolonged and complicated. Feel the patient will require a multiple day hospitalization.
[2018-05-18 08:13] LABS: ABSOLUTE BASOPHIL COUNT 0 /CUMM (0.0-0.2); ABSOLUTE EOSINOPHIL COUNT 0.2 /CUMM (0.0-0.7); ABSOLUTE GRANULOCYTE CT 9.3 /CUMM (1.4-6.5); ABSOLUTE LYMPH COUNT 2.6 /CUMM (1.2-3.4); ABSOLUTE MONOCYTE COUNT 0.9 /CUMM (0.10-0.60); BASOPHIL % 0.1 % (0.0-2.0); EOSINOPHIL % 1.4 % (0-5); GRANULOCYTE % 71.7 % (42.2-75.2); HEMATOCRIT 34.4 % (42-52); MEAN CORPUSCULAR HGB 32.1 PG (27.0-31.0); MEAN CORPUSCULAR HGB CONC 35.3 G/DL (33.0-37.0); MEAN PLATELET VOLUME 8.2 FL (7.4-10.4); PLATELET COUNT 126 /CUMM (130-400); RBC DISTRIBUTION WIDTH 14.7 % (11.5-14.5); RED BLOOD CELL CT 3.79 /CUMM (4.70-6.10); WHITE BLOOD CELL COUNT 12.9 /CUMM (4.8-10.8)
--- NOTE | 2018-05-18 08:16 | RADIOLOGY REPORT ---
EXAMINATION: XR LUMBOSACRAL SPINE CLINICAL INFORMATION: Status post fall with lower back pain and tenderness. COMPARISON: No relevant prior imaging. TECHNIQUE: 3 views of the lumbar spine were obtained. FINDINGS: There are chronic postoperative changes of a decompressive laminectomy at L3, L4, and L5 and there is a spinal fusion with a unilateral transpedicular hardware construct extending from L4 to L5. Hardware is grossly intact and there is no evidence of suggest loosening or failure. Alignment is grossly maintained. No evidence of acute fracture. Sacroiliac joints are symmetric. Visualized bowel gas pattern is normal. There is degenerative arthrosis of both hips that is partially included within the [id number] of this examination. IMPRESSION: Chronic changes of a multilevel laminectomy and spinal fusion with a unilateral transpedicular hardware construct extending from L4 to L5. Grossly no evidence of hardware loosening or failure. No evidence of acute fracture and no spinal subluxation.
--- NOTE | 2018-05-18 08:16 | RADIOLOGY REPORT ---
EXAMINATION: XR HIP, RIGHT CLINICAL INFORMATION: Status post fall. Unable to bear weight due to pain. COMPARISON: None TECHNIQUE: Two views of the right hip. FINDINGS: The right femoral head is normally positioned within the acetabular fossa. No definite hip fracture is seen. The visualized portions of the right hemipelvis are intact. Degenerative changes are seen at the hip joint without joint space loss. The visualized soft tissues appear normal. IMPRESSION: No right hip subluxation or definite fracture. Mild osteoarthritic changes without joint space loss.
--- NOTE | 2018-05-18 10:05 | History & Physical ---
Denis DEL VALLE,Gina 05/18/18 1004: General Information and HPI MD Statement: I have seen and personally examined DEIRDRE STEINER JR and documented this H&P. The patient is a 58 year old M who presented with a patient stated chief complaint of [fall, back pain]. Source of Information: patient, old records Exam Limitations: no limitations History of Present Illness: 58 year old male with PMH of HIV on HAART, HCV s/p Harvoni, CKD IIIA, anxiety, and asthma presented to the ED with main complaint of mechanical fall 23 hours ago. Patient states that he was using the restroom when he slipped and fell down, he hurt his head against the wall, he was on the floor for few minutes after which he was able to stand up on his own. After the fall the patient reports having pain on his right lower extremity and numbness all over his body from his neck down to his feet. Patient denies any loss of consciousness before or after the full. He also denies any palpitation, chest pain , lightheadedness or dizziness before or after the fall. Patient has neurogenic bladder and he straight caths himself 3 times daily he noticed that his urine was of decreased amount and looks of bloody for few days. Patient follow-up for his HIV at [facility] in [place]. ED course: Vital signs on admission: Blood pressure 97/62, pulse 79, respiratory 20, temperature 97.6, pulse ox 98 on room air Labs on admission: WBC 12.9, hemoglobin 12.1, hematocrit 34.4, platelets 126, BEP showed hyponatremia sodium 128, potassium 3.3, bicarb 8, BUN 95, creatinine 9.5, glucose 123, CK 107, AST 19, ALT 17, total bili 0.6 urine analysis was positive for large leukocyte esterase packed RBCs and 2550 RBCs Hip x-ray showed no righthip subluxation or definite fracture. Mild osteoarthritic changes without joint space loss. Lumbar spine CT: Chronic changes of a multilevel laminectomy and spinal fusion with a unilateral transpedicular hardware construct extending from L4 to L5. Grossly no evidence of hardware loosening or failure. No evidence of acute fracture and no spinal subluxation. Patient received 1500 bolus of normal saline in the ED Allergies/Medications Allergies: Coded Allergies: erythromycin base (UNKNOWN 12/02/16) Home Med list Abacavir Sulfate (Abacavir) 300 MG TABLET 1 TAB PO DAILY ANTIVIRAL (Reported) Albuterol Sulfate (Proair Hfa) 90 MCG HFA.AER.AD 2 PUF INH Q4-6 PRN PRN ASTHMA (Reported) Alprazolam (Xanax) 0.5 MG TABLET 1 TAB PO Q6P PRN ANXIETY/SLEEP (Reported) Amoxicillin 500 MG CAPSULE 500 MG PO BID URINE INFECTION Calcium Carbonate/Vitamin D3 (Calcium 500 + D Tablet) (Unknown Strength) TABLET (Unknown Dose) PO DAILY SUPPLEMENT (Reported) Dextran 70/Hypromellose (Artificial Tears) 1 EACH DROPERETTE 1 GTT OS BID OCULAR (Reported) Dolutegravir Sodium (Tivicay) 50 MG TABLET 1 TAB PO DAILY HIV (Reported) Folic Acid 1 MG TABLET 1 MG PO DAILY VITAMIN DEFICIENCY Gabapentin (Neurontin) 300 MG CAPSULE 1 CAP PO BID NEUROPATHY (Reported) Lactulose 10 GRAM/15 ML SOLUTION 30 ML PO QAM ENCEPHALOPATHY (Reported) Multiple Vitamin (Multivitamins) 1 EACH TABLET 1 TAB PO DAILY SUPPLEMENT ( Reported) Oxycodone HCl 30 MG TABLET 1 TAB PO Q4-6H PRN PAIN (Reported) Oxycodone HCl (Oxycontin) 40 MG TAB.ER.12H 1 TAB PO BID CHRINIC PAIN ( Reported) Potassium Chloride 20 MEQ TAB.ER.PRT 1 TAB PO DAILY Hypokalemia Prednisolone Acetate (Omnipred) 1 % DROPS.SUSP 1 GTT OS 4 TIMES/DAY OCULAR ( Reported) Thiamine HCl (Vitamin B-1) 100 MG TABLET 100 MG PO DAILY VITAMIN DEFICIENCY Trazodone HCl 100 MG TABLET 200 MG PO QHS PRN SLEEP (Reported) Past History Travel History Traveled to [place] past 21 day No Medical History Neurological: NONE EENT: NONE Cardiovascular: NONE Respiratory: asthma Gastrointestinal: NONE Hepatic: hepatitis C (s/p Tx with Harvoni) Renal: chronic kidney disease, neurogenic bladder Musculoskeletal: BACK ISSUES Psychiatric: anxiety Endocrine: NONE Blood Disorders: HIV Cancer(s): NONE SOCIAL MEDIA DESIGNER/Reproductive: NONE History of MRSA: Yes History of VRE: No History of CDIFF: No Influenza Vaccine: 06/29/16 Surgical History Surgical History: L BKA status post back surgeries Past Family/Social History Psychosocial History Who Do You Live With? self Services at Home: Nursing Primary Language: Haitian Functional Ability ADLs Independent: dressing, eating, toileting, bathing. Ambulation: independent IADLs Independent: shopping, housework, finances, food prep, telephone, transportation , medication admin. Review of Systems Review of Systems Constitutional: Reports: malaise, weakness. Denies: chills, diaphoresis, fever. Cardiovascular: Denies: chest pain, edema, orthopena, palpitations, peripheral edema. Respiratory: Denies: cough, hemoptysis, orthopnea, short of breath, sputum production, stridor. GI: Denies: bloating, constipation, diarrhea, distention, bowel incontinence, melena , nausea, bloody stool. Genitourinary: Reports: see HPI, hematuria. Musculoskeletal: Reports: back pain. Skin: Denies: no symptoms. Neurological/Psychological: Reports: numbness, petit mal seizures. Exam & Diagnostic Data Last 24 Hrs of Vital Signs/I&O Vital Signs Date Time Temp Pulse Resp B/P B/P Pulse O2 O2 Flow FiO2 Mean Ox Delivery Rate 05/18 1156 97.0 78 18 94/55 94 Room Air 05/18 1142 75 20 99/62 97 Room Air 05/18 1107 97.0 80 105/59 05/18 1010 97.6 79 20 97/62 98 Room Air 05/18 0853 84 90/54 05/18 0818 90 98/56 05/18 0714 98.0 93 22 165/65 95 Room Air Intake & Output 05/18 1600 05/18 0800 05/18 0000 Intake Total Output Total Balance Patient 250 lb Weight Weight Estimated Measurement Method Physical Exam General Appearance Alert, Oriented X3, Cooperative HEENT Atraumatic, EOMI, Mucous Membr. moist/pink, LEFT EYE CORNEAL OPACITY Neck Supple, No JVD Cardiovascular Normal S1, Normal S2 Lungs Clear to Auscultation Abdomen Normal Bowel Sounds, Soft, No Tenderness Neurological Normal Speech, Strength at 5/5 X4 Ext, Normal Tone, Sensation Intact Extremities LEFT BKA, RT LEG SAHOW 2+ pitting edema with chronic dystrophic skin changes Assessment/Plan Assessment: 58 year old male with PMH of HIV on HAART, HCV s/p Harvoni, CKD IIIA, anxiety, and asthma presented to the ED with main complaint of mechanical fall 23 hours ago. Patient states that he was using the restroom when he slipped and fell down, he hurt his head against the wall, he was on the floor for few minutes after which he was able to stand up on his own. After the fall the patient reports having pain on his right lower extremity and numbness all over his body from his neck down to his feet. Patient has neurogenic bladder and he straight caths himself 3 times daily he noticed that his urine was of decreased amount and looks of bloody for few days. On admission his labs were significant for leukocytosis 12.9, thrombocytopenia 129, HPI with creatinine 9.5 his baseline is 2.5, hyponatremia sodium 128, hypokalemia, anion gap metabolic acidosis, lactic acid was normal, elevated BNP, urine analysis was significant for leukocytosis large leukocyte esterase and hematuria Patient was admitted to the ICU for treatment of the following condition: Problem list: ABDIRASHID on CKD: Patient creatinine is 9.5 currently, his baseline is 2.5 Most likely due to dehydration leading to prerenal failure IV fluid hydration with D5W with sodium bicarbonate at the rate of 150 as per nephrology recommendation Close monitoring of kidney function Intake and output Patient will be n.p.o. at midnight for possible IR guided Fermin cath Currently he does not need dialysis We will reassess in the morning for the need of dialysis Follow-up on ultrasound abdomen to rule out obstruction and structural kidney disease We will check hepatitis B surface antigen antibody Coags Nephrology recommendation appreciated Anion gap metabolic acidosis: Bicarb 8, anion gap 17 Most likely due to ABDIRASHID Patient does not have acidotic breathing on physical exam He is awake and alert and able to protect his airways Close monitoring of his BEP IV sodium bicarbonate and D5W at 1 50 mEq/h UTI with history of urine incontinence and straight cath: Patient has history of UTI (E. coli) He has history of urology procedure at [facility] for stricture Patient does self cath 3 times daily because he has neurogenic bladder He noticed that his urine looks bloody and of little amount for the past few days On the ED urine in the Mcgregor catheter was bloody UA was significant for large leukocyte esterase, WBC 2550, packed RBCs Follow-up on urine culture ID consult appreciated Leukocytosis Most likely due to UTI We will follow-up in CBC Follow-up on panculture Antibiotics according to ID recommendation Electrolyte imbalance (hyponatremia, hypokalemia, hypocalcemia): Most likely due to dehydration Potassium was repleted in the ED We will follow-up on repeat ICU bundle in the evening Replete potassium accordingly History of fall Patient reports history of mechanical fall, he denies any loss of consciousness before or after He reports hitting his head when he fell down Head CT showed no acute intracranial abnormality and no cervical spine abnormality only moderate spondylosis at C5-C7 Serial troponin EKG to rule out ACS Follow-up on echocardiogram Multiple open wounds on the buttocks and coccyx: Wound care consult appreciated History of HIV on Abacavir and Tivicay: Patient follow up with [facility] in [place]. We will confirm the dose of Abacavir and Tivicay tomorrow We will continue home meds Full code Renal dialysis diet Patient be n.p.o. at midnight for possible Fermin cath DVT prophylaxis with subcu heparin As Ranked By This Provider Problem List: 1. UTI (urinary tract infection) 2. HIV (human immunodeficiency virus infection) 3. Acute renal failure Core Measures/Misc (06/15) Acute Coronary Syndrome ACS Diagnosis: No Congestive Heart Failure Congestive Heart Failure Diagnosis No Cerebrovascular Accident CVA/TIA Diagnosis: No VTE (View Protocol) VTE Risk Factors Age>40 No Mechanical VTE Prophylaxis d/t N/A MechProphylax Ordered No VTE Pharm Prophylaxis d/t NA PharmProphylax ordered Sepsis (View protocol) Sepsis Present: Yes If YES complete Sepsis Event Note If YES complete Sepsis Event Note Dexter Velasquez MD 05/18/18 1021: Core Measures/Misc (06/15) Sepsis (View protocol) If YES complete Sepsis Event Note If YES complete Sepsis Event Note Attending MD Review Statement Attending Statement Attending MD Statement: examined this patient, discuss w/resident/PA/INTERMEDIATE SCHOOL TEACHER, agreed w/resident/PA/INTERMEDIATE SCHOOL TEACHER, discussed with family, reviewed EMR data (avail), discussed with nursing, discussed with case mgmt, reviewed images, amended to note Attending Assessment/Plan: Impression 58 year old man * acute on chronic renal failure with reduced PO intake and borderline hypotension likely pre-renal in nature, with metabolic acidosis * HIV * hx of recurrent UTI's * mild leukocytosis * s/p fall * hx of left BKA Plan Respiratory -obtain CXR for baseline ID -monitor leukocytosis -panculture CVS -check ECHO -cardiac enzymes Heme -cbc, coags Metabolic -nephrology consultation -monitor ins/outs -monitor electrolytes, creatinine Alimentary -NPO in the even requires HD Neuro -no acute issues -he did hit his head, will obtain imaging to rule out traumatic injury TTS 80 minutes DVT prophylaxis at all times
--- NOTE | 2018-05-18 10:35 | Admission Certification ---
Admission Certification Certification Statement - As attending physician, I certify that at the time of - admission, based on clinical presentation, severity of - symptoms, need for further diagnostic testing and - therapeutic interventions, and risk of adverse outcomes - without in-hospital treatment, in my clinical assessment, - this patient requires an acute hospital stay for a minimum - of two nights or longer. I have also considered psychsocial - factors such as support system, advanced age, financial - issues, cognitive issues, and failed out-patient treatments, - past re-admission history, safety of patient, and lack of - compliance as applicable. Specific rationale supporting this admission is: ABDIRASHID on CKD, metabolic acidosis hypotension fall HIV ICU level of care
--- NOTE | 2018-05-18 12:00 | CT SCAN REPORT ---
CT HEAD WITHOUT IV CONTRAST CT CERVICAL SPINE WITHOUT IV CONTRAST INDICATION: Fall with head pain. COMPARISON: Head CT 07/29/2017. TECHNIQUE: Multidetector CT acquisitions of the head and cervical spine were obtained without IV contrast. Multiplanar reformats were acquired and utilized for image interpretation. FINDINGS: HEAD: There is no intracranial hemorrhage, hydrocephalus, extra-axial surface collection, midline shift, or other herniation pattern. Joseph to white matter differentiation is diffusely maintained without evidence of an evolved acute territorial infarct. The basilar cisterns are preserved. No significant soft tissue abnormality. No acute osseous abnormality. The paranasal sinuses and the mastoid air cells are well-aerated. CERVICAL SPINE: There is anatomic alignment of the vertebral bodies and posterior elements. Moderate spondylosis at C5-C6 and C6-C7. There is no acute fracture and there is no acute subluxation. The craniocervical and atlantoaxial articulations are normal. There is no prevertebral soft tissue swelling. No significant soft tissue abnormality within the neck. Biapical blebs. IMPRESSION: 1. No acute intracranial abnormality. 2. No acute osseous abnormality within the cervical spine. Moderate spondylosis at C5-C6 and C6-C7.
[2018-05-18 12:14] LABS: PTT 56 SEC (25-37)
--- NOTE | 2018-05-18 12:40 | Cons- Nephrology ---
General Information and HPI Consulting Request Date of Consult: 05/18/18 Requested By: Dexter Velasquez MD Reason for Consult: Acute on chronic kidney disease Source of Information: patient, family, old records Exam Limitations: no limitations History of Present Illness: This 4-year-old gentleman has a history of HIV as well as chronic kidney disease. He was brought to the emergency room having fallen at home 30 hours ago. He also has a history of right sided hydronephrosis and a baseline creatinine of 2.5. He has neurogenic bladder he says from encephalitis in childhood. He straight caths 3 times a day. He experienced a fall roughly 30 hours ago and after this noted that his urine had decreased in volume as well as developed hematuria. Denied any fevers or chills before that. Otherwise he is feeling fine. He was following with Dr. Radha Morocho in [place] for his HIV. He also reports that his hepatitis C had been treated. [facility] July of this past year. There is no history of diabetes. He otherwise has no history of hematuria proteinuria. He intermittently straight caths therefore it is difficult to discern any symptoms referring to the urinary tract Allergies/Medications Allergies: Coded Allergies: erythromycin base (UNKNOWN 12/02/16) Home Med List: Abacavir Sulfate (Abacavir) 300 MG TABLET 1 TAB PO DAILY ANTIVIRAL (Reported) Albuterol Sulfate (Proair Hfa) 90 MCG HFA.AER.AD 2 PUF INH Q4-6 PRN PRN ASTHMA (Reported) Alprazolam (Xanax) 0.5 MG TABLET 1 TAB PO Q6P PRN ANXIETY/SLEEP (Reported) Amoxicillin 500 MG CAPSULE 500 MG PO BID URINE INFECTION Calcium Carbonate/Vitamin D3 (Calcium 500 + D Tablet) (Unknown Strength) TABLET (Unknown Dose) PO DAILY SUPPLEMENT (Reported) Dextran 70/Hypromellose (Artificial Tears) 1 EACH DROPERETTE 1 GTT OS BID OCULAR (Reported) Dolutegravir Sodium (Tivicay) 50 MG TABLET 1 TAB PO DAILY HIV (Reported) Folic Acid 1 MG TABLET 1 MG PO DAILY VITAMIN DEFICIENCY Gabapentin (Neurontin) 300 MG CAPSULE 1 CAP PO BID NEUROPATHY (Reported) Lactulose 10 GRAM/15 ML SOLUTION 30 ML PO QAM ENCEPHALOPATHY (Reported) Multiple Vitamin (Multivitamins) 1 EACH TABLET 1 TAB PO DAILY SUPPLEMENT ( Reported) Oxycodone HCl 30 MG TABLET 1 TAB PO Q4-6H PRN PAIN (Reported) Oxycodone HCl (Oxycontin) 40 MG TAB.ER.12H 1 TAB PO BID CHRINIC PAIN ( Reported) Potassium Chloride 20 MEQ TAB.ER.PRT 1 TAB PO DAILY Hypokalemia Prednisolone Acetate (Omnipred) 1 % DROPS.SUSP 1 GTT OS 4 TIMES/DAY OCULAR ( Reported) Thiamine HCl (Vitamin B-1) 100 MG TABLET 100 MG PO DAILY VITAMIN DEFICIENCY Trazodone HCl 100 MG TABLET 200 MG PO QHS PRN SLEEP (Reported) Current Medications: Current Medications Sig/Puma Start time Last Medication Dose Route Stop Time Status Admin Heparin Sodium 5,000 UNIT Q8 05/18 1400 AC (Porcine) SC Sodium Chloride 1,000 ML Q10H 05/18 1130 AC 05/18 IV 1143 Sodium Chloride 500 ML BOLUS ONE 05/18 1000 DC 05/18 IV 05/18 1059 0959 Sodium Chloride 1,000 ML ONCE ONE 05/18 0915 AC 05/18 IV 05/18 1554 0932 Review of Systems Review of Systems EENTM: Reports: visual changes. Denies: ear pain, hearing changes, nasal congestion, epistaxis, nasal pain. Cardiovascular: Denies: chest pain, edema, orthopena, palpitations, peripheral edema. Respiratory: Denies: orthopnea, short of breath, sputum production, stridor. GI: Denies: bloating, constipation, diarrhea, distention, bloody stool. Genitourinary: Reports: no symptoms. Denies: discharge, dysuria, frequency, pain. Musculoskeletal: Denies: gout, joint pain, joint swelling. Skin: Reports: no symptoms. Neurological/Psychological: Reports: numbness, paresthesia, tingling. Denies: petit mal seizures, tremors, tonic-clonic seizures. Hematologic/Endocrine: Denies: bruising, bleeding, polyuria, polydipsia. Past History Travel History Traveled to [place] past 21 day No Medical History Neurological: NONE EENT: NONE Cardiovascular: NONE Respiratory: asthma Gastrointestinal: NONE Hepatic: hepatitis C (s/p Tx with Harvoni) Renal: chronic kidney disease, neurogenic bladder Musculoskeletal: BACK ISSUES Psychiatric: anxiety Endocrine: NONE Blood Disorders: HIV Cancer(s): NONE AEMT/Reproductive: NONE Surgical History Surgical History: L BKA status post back surgeries Psychosocial History Who Do You Live With? self Services at Home: Nursing Primary Language: Serbian Functional Ability ADLs Independent: dressing, eating, toileting, bathing. Ambulation: independent IADLs Independent: shopping, housework, finances, food prep, telephone, transportation , medication admin. Exam & Diagnostic Data Vital Signs and I&O Vital Signs Date Time Temp Pulse Resp B/P B/P Pulse O2 O2 Flow FiO2 Mean Ox Delivery Rate 05/18 1156 97.0 78 18 94/55 94 Room Air 05/18 1142 75 20 99/62 97 Room Air 05/18 1107 97.0 80 105/59 05/18 1010 97.6 79 20 97/62 98 Room Air 05/18 0853 84 90/54 05/18 0818 90 98/56 05/18 0714 98.0 93 22 165/65 95 Room Air Intake & Output 05/18 1600 05/18 0400 05/17 1600 05/17 0400 05/16 1600 05/16 0400 Intake Total Output Total Balance Patient 250 lb Weight Weight Estimated Measurement Method Physical Exam General Appearance: well developed/nourished, no apparent distress, alert, awake , anxious, Unkempt Head: atraumatic, normal appearance Eyes: Bilateral: EOMI, pale conjunctivae, other (opacity OS). Neck: normal inspection, supple, trachea mid line, no midline tenderness Respiratory: normal breath sounds, chest non-tender, lungs clear Cardiovascular: regular rate/rhythm, edema Peripheral Pulses: 3+ femoral (R), 3+ femoral (L), 3+ popliteal (R), 3+ popliteal (L), 1+ tibialis posterior (R), 1+ dorsalis pedis (R) Gastrointestinal: normal bowel sounds, soft, non-tender, no organomegaly, caput medusae Back: normal inspection, normal range of motion Extremities: s/p LBKA Neurologic/Psych: no motor/sensory deficits, awake, alert, oriented x 3 Cranial Nerves: normal hearing, normal speech, PERRL Skin: chronic venous stais changes right foot, poor skin turgor Results Pertinent Lab Results: Laboratory Tests 05/18 05/18 05/18 05/18 05/18 1205 1153 1139 1126 1126 Chemistry Troponin I Cancelled Coagulation PT Cancelled INR Cancelled Miscellaneous Ref Lab Test Result Pending Serology Hep Bs Antibody Cancelled Urines Urine Color Cancelled Urine Clarity Cancelled Urine pH Cancelled Ur Specific [place] Cancelled Urine Protein Cancelled Urine Ketones Cancelled Urine Nitrite Cancelled Urine Bilirubin Cancelled Urine Urobilinogen Cancelled Ur Leukocyte Esterase Cancelled Ur Microscopic Cancelled Urine Hemoglobin Cancelled Urine Osmolality Cancelled Urine Glucose Cancelled 05/18 05/18 1029 0738 Urines Urine Color (YEL,AMB,STR) BLDY H Urine Clarity (CLEAR) CLDY H Urine pH (5.0 - 8.0) 5.5 Ur Specific [place] (1.001 - 1.035) 1.020 Urine Protein (NEG,<30 MG/DL) >=300 H Urine Ketones (NEG) TRACE H Urine Nitrite (NEG) POS H Urine Bilirubin (NEG) NEG@ICTO Urine Urobilinogen (0.1 - 1.0 EU/dl) 1.0 Ur Leukocyte Esterase (NEG) LARGE H Ur Microscopic SEDIMENT EXAMINED Urine RBC (0 - 5 /HPF) PACKD H Urine WBC (0 - 2 /HPF) PACKD H Urine Bacteria (NEG/NONE) PACKD H Urine Hemoglobin (NEG) LARGE H Ur Random Creatinine Cancelled Ur Random Sodium Cancelled Ur Random Potassium Cancelled Fraction Sodium Excret Cancelled Urine Glucose (N MG/DL) NEG 05/18 0735 Chemistry Sodium (137 - 145 mmol/L) 128 L Potassium (3.5 - 5.1 mmol/L) 3.3 L Chloride (98 - 107 mmol/L) 103 Carbon Dioxide (22 - 30 mmol/L) 8 *L Anion Gap (5 - 16) 17 H BUN (9 - 20 mg/dL) 95 H Creatinine (0.7 - 1.2 mg/dL) 9.5 *H Estimated GFR (>60 ml/min) 6 L BUN/Creatinine Ratio (7 - 25 %) 10.0 Glucose (65 - 99 mg/dL) 123 H Serum Osmolality (285 - 295 MOSM/KG) 309 H Calcium (8.4 - 10.2 mg/dL) 6.3 L Total Bilirubin (0.2 - 1.3 mg/dL) 0.6 AST (17 - 59 U/L) 19 ALT (21 - 72 U/L) 17 L Alkaline Phosphatase (< 127 U/L) 104 Creatine Kinase (55 - 170 U/L) 107 Troponin I (<0.11 ng/ml) Pending Total Protein (6.3 - 8.2 g/dL) 8.6 H Albumin (3.5 - 5.0 g/dL) 3.4 L Globulin (1.9 - 4.2 gm/dL) 5.2 H Albumin/Globulin Ratio (1.1 - 2.2 %) 0.7 L Coagulation APTT (25 - 37 SEC) 56 H Hematology CBC w Diff NO MAN DIFF REQ WBC (4.8 - 10.8 /CUMM) 12.9 H RBC (4.70 - 6.10 /CUMM) 3.79 L Hgb (14.0 - 18.0 G/DL) 12.1 L Hct (42 - 52 %) 34.4 L MCV (80.0 - 94.0 FL) 91.0 MCH (27.0 - 31.0 PG) 32.1 H MCHC (33.0 - 37.0 G/DL) 35.3 RDW (11.5 - 14.5 %) 14.7 H Plt Count (130 - 400 /CUMM) 126 L MPV (7.4 - 10.4 FL) 8.2 Gran % (42.2 - 75.2 %) 71.7 Lymphocytes % (20.5 - 51.1 %) 20.2 L Monocytes % (1.7 - 9.3 %) 6.6 Eosinophils % (0 - 5 %) 1.4 Basophils % (0.0 - 2.0 %) 0.1 Absolute Granulocytes (1.4 - 6.5 /CUMM) 9.3 H Absolute Lymphocytes (1.2 - 3.4 /CUMM) 2.6 Absolute Monocytes (0.10 - 0.60 /CUMM) 0.9 H Absolute Eosinophils (0.0 - 0.7 /CUMM) 0.2 Absolute Basophils (0.0 - 0.2 /CUMM) 0 Serology Hep Bs Antigen (NONREACTIVE) Pending Hep Bs Antibody (NONREACTIVE) Pending Assessment/Plan Assessment/Recommendations Assessment: 1. Acute on chronic kidney disease. He is developed fairly profound uremia after the fall. He did notice that his urine had become more bloody. He currently intermittently straight caths, but noted that the urine became bloody after the fall. The fall occurred roughly 30 hours ago. He developed numbness and pain in his back going down the back of his legs. 2. Chronic kidney disease. Is a history of HIV as well as history of hep C's creatinine most recently was 2.5 on a previous visit. 3. History of hepatitis C. He apparently had been treated with Harvoni 4. History of HIV 5. Volume status. He actually appears volume depleted. 6. No urgent dialytic need. 7. Metabolic acidosis due to the renal failure. Recommendations: 1. Agree with close monitoring the ICU 2. No urgent dialytic needs surprisingly 3. Strict I's and O's daily weights 4. Would also make him n.p.o. after midnight in the case he needs dialytic intervention. 5. Discussed with the resident, given a bicarb of 9, would favor the administration as volume D5W with 150 mEq of sodium bicarbonate. Would think about getting this at 100 cc/h or more. 6. Would also check hepatitis B surface antigen and antibody. 7. Please send a urine myoglobin. 8. Dr. Milan was adding a CPK to the blood work already sent. High in the differential given the fall 30 hours ago is whether or not he has developed rhabdomyolysis. If so, he will need the administration of normal saline with forced diuresis if he is making urine. 9. I see no urgent dialytic need. 10. Strict I's and O's and daily weights 11. Daily BMPs 12. He needs imaging of the kidneys in order to make sure he is not had a stone or some other source of obstruction.
--- NOTE | 2018-05-18 12:49 | RADIOLOGY REPORT ---
EXAMINATION: XR PORTABLE CHEST CLINICAL INFORMATION: Weakness. Acute kidney injury. COMPARISON: Chest radiograph 07/31/2017. TECHNIQUE: Portable frontal view of the chest was obtained. FINDINGS: Lungs are well-expanded. There are a few coarse linear markings visualized within the lung bases that most likely represent a manifestation of subsegmental atelectasis. No overt consolidative disease or effusion. The cardiac silhouette and upper mediastinal contours are normal. No acute osseous finding. IMPRESSION: Minimal bibasilar subsegmental atelectasis. No overt consolidative disease or effusion.
[2018-05-18 13:15] VITALS: BP 98/60
[2018-05-18 16:00] VITALS: BP 102/60
--- NOTE | 2018-05-18 16:43 | ULTRASOUND REPORT ---
EXAMINATION: US RETROPERITONEAL COMPLETE (RENAL) CLINICAL INFORMATION: Acute kidney injury.. COMPARISON: None TECHNIQUE: Real-time imaging of the kidneys and bladder. FINDINGS: Markedly limited visualization due to the patient's body habitus, overlying bowel gas and patient's inability to cooperate with the exam. RIGHT KIDNEY: 8.9 x 4.4 x 4.0 cm (SAG x AP x TRV). The kidney is normal in size and contour. The kidney demonstrates increased cortical echogenicity as well as thinning. No calculi or focal parenchymal lesions. No hydronephrosis. LEFT KIDNEY: 9.7 x 4.2 x 4.5 cm (SAG x AP x TRV). The kidney is normal in size and contour. The kidney demonstrates increased cortical echogenicity as well as thinning, similar to the contralateral side. No calculi or focal parenchymal lesions. No hydronephrosis. BLADDER: Not visualized. IMPRESSION: Limited evaluation. No evidence of hydronephrosis. Bilateral cortical thinning and increased echogenicity suggestive of medical renal disease.
--- NOTE | 2018-05-18 17:16 | Cons- Infect Disease ---
General Information and HPI Consulting Request Date of Consult: 05/18/18 Requested By: Dexter Velasquez MD Reason for Consult: Rule out UTI Source of Information: patient, old records History of Present Illness: This is a 58-year-old man with AIDS, maintained on antiretroviral therapy and followed at the [facility], with his last viral load undetectable and his CD4 count approximately 500, Hepatitis C, treated with Harvoni in the past, chronic kidney disease, with a neurogenic bladder, for which he catheterizes himself 3 times a day, with a history of recurrent urinary tract infections, status post left BKA for MRSA osteomyelitis, recently confined to the wheelchair , admitted early this morning following a fall in the bathroom on the day prior to admission, with the complaint of weakness and numbness in his back and down his legs. On admission he was afebrile. Laboratory data revealed a white blood cell of 13,000, BUN/creatinine 95 and 9.5, with normal liver enzymes, CPK 107, PTT 56. Urinalysis packed RBC/packed WBCs. Chest x-ray revealed minimal bibasilar atelectasis. X-ray of the lumbosacral spine revealed chronic changes, with hardware in place L4-L5, with no evidence of loosening or failure and no evidence of any acute fracture. X-ray of the right hip was negative for any subluxation or fracture. CT of the head and cervical spine were negative for any acute process. Allergies/Medications Allergies: Coded Allergies: erythromycin base (UNKNOWN 12/02/16) Home Med List: Abacavir Sulfate (Abacavir) 300 MG TABLET 1 TAB PO DAILY ANTIVIRAL (Reported) Albuterol Sulfate (Proair Hfa) 90 MCG HFA.AER.AD 2 PUF INH Q4-6 PRN PRN ASTHMA (Reported) Alprazolam (Xanax) 0.5 MG TABLET 1 TAB PO Q6P PRN ANXIETY/SLEEP (Reported) Amoxicillin 500 MG CAPSULE 500 MG PO BID URINE INFECTION Calcium Carbonate/Vitamin D3 (Calcium 500 + D Tablet) (Unknown Strength) TABLET (Unknown Dose) PO DAILY SUPPLEMENT (Reported) Dextran 70/Hypromellose (Artificial Tears) 1 EACH DROPERETTE 1 GTT OS BID OCULAR (Reported) Dolutegravir Sodium (Tivicay) 50 MG TABLET 1 TAB PO DAILY HIV (Reported) Folic Acid 1 MG TABLET 1 MG PO DAILY VITAMIN DEFICIENCY Gabapentin (Neurontin) 300 MG CAPSULE 1 CAP PO BID NEUROPATHY (Reported) Lactulose 10 GRAM/15 ML SOLUTION 30 ML PO QAM ENCEPHALOPATHY (Reported) Multiple Vitamin (Multivitamins) 1 EACH TABLET 1 TAB PO DAILY SUPPLEMENT ( Reported) Oxycodone HCl 30 MG TABLET 1 TAB PO Q4-6H PRN PAIN (Reported) Oxycodone HCl (Oxycontin) 40 MG TAB.ER.12H 1 TAB PO BID CHRINIC PAIN ( Reported) Potassium Chloride 20 MEQ TAB.ER.PRT 1 TAB PO DAILY Hypokalemia Prednisolone Acetate (Omnipred) 1 % DROPS.SUSP 1 GTT OS 4 TIMES/DAY OCULAR ( Reported) Thiamine HCl (Vitamin B-1) 100 MG TABLET 100 MG PO DAILY VITAMIN DEFICIENCY Trazodone HCl 100 MG TABLET 200 MG PO QHS PRN SLEEP (Reported) Past History Travel History Traveled to [place] past 21 day No Medical History Neurological: NONE EENT: NONE Cardiovascular: NONE Respiratory: asthma Gastrointestinal: NONE Hepatic: hepatitis C (s/p Tx with Whit) Renal: chronic kidney disease, neurogenic bladder Musculoskeletal: BACK ISSUES Psychiatric: anxiety Endocrine: NONE Blood Disorders: HIV Cancer(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 Home Who Do You Live With? self Services at Home: Nursing Primary Language: German Smoking Status: Current Everyday Smoker Functional Ability ADLs Independent: dressing, eating, toileting, bathing. Ambulation: independent IADLs Independent: shopping, housework, finances, food prep, telephone, transportation , medication admin. Review of Systems Review of Systems All Other Systems: Reviewed and Negative Exam & Diagnostic Data Last 24 Hrs of Vital Signs/I&O Vital Signs Date Time Temp Pulse Resp B/P B/P Pulse O2 O2 Flow FiO2 Mean Ox Delivery Rate 05/18 1600 98 Room Air 05/18 1315 Room Air 05/18 1315 98.2 76 20 98/60 96 Room Air 05/18 1156 97.0 78 18 94/55 94 Room Air 05/18 1142 75 20 99/62 97 Room Air 05/18 1107 97.0 80 105/59 05/18 1010 97.6 79 20 97/62 98 Room Air 05/18 0853 84 90/54 05/18 0818 90 98/56 05/18 0714 98.0 93 22 165/65 95 Room Air Intake & Output 05/18 1600 05/18 0800 05/18 0000 Intake Total 100 Output Total 250 Balance -150 Intake, IV 100 Output, Urine 250 Patient 193 lb Weight Weight Bed scale Measurement Method Physical Exam Other Physical Findings: He is awake and alert in no acute distress. He is afebrile. Skin reveals no rash. HEENT exam left eye opacification, with evidence of a sub-conjunctival hemorrhage and conjunctival crusting. Neck is supple with no adenopathy. Lungs bibasilar rhonchi. Heart regular rhythm with no murmur. Abdomen is soft, nontender with positive bowel sounds. Back no CVA tenderness. Extremities status post left BKA; chronic ulcerations on his right foot, with no surrounding inflammation. Neuro weakness on plantar flexion of the right foot. Mcgregor catheter is in place. Last 24 Hours of Lab Results: Laboratory Tests 05/18 05/18 05/18 05/18 05/18 1205 1153 1139 1126 1126 Chemistry Troponin I Cancelled Coagulation PT Cancelled INR Cancelled Miscellaneous Ref Lab Test Result Pending Serology Hep Bs Antibody Cancelled Urines Urine Color Cancelled Urine Clarity Cancelled Urine pH Cancelled Ur Specific [place] Cancelled Urine Protein Cancelled Urine Ketones Cancelled Urine Nitrite Cancelled Urine Bilirubin Cancelled Urine Urobilinogen Cancelled Ur Leukocyte Esterase Cancelled Ur Microscopic Cancelled Urine Hemoglobin Cancelled Urine Osmolality Cancelled Urine Glucose Cancelled 05/18 05/18 1029 UNK Chemistry Sodium Cancelled Potassium Cancelled Chloride Cancelled Carbon Dioxide Cancelled Anion Gap Cancelled BUN Cancelled Creatinine Cancelled Glucose Cancelled Calcium Cancelled Phosphorus Cancelled Magnesium Cancelled Total Bilirubin Cancelled AST Cancelled ALT Cancelled Albumin Cancelled Urines Urine Color (YEL,AMB,STR) BLDY H Urine Clarity (CLEAR) CLDY H Urine pH (5.0 - 8.0) 5.5 Ur Specific [place] (1.001 - 1.035) 1.020 Urine Protein (NEG,<30 MG/DL) >=300 H Urine Ketones (NEG) TRACE H Urine Nitrite (NEG) POS H Urine Bilirubin (NEG) NEG@ICTO Urine Urobilinogen (0.1 - 1.0 EU/dl) 1.0 Ur Leukocyte Esterase (NEG) LARGE H Ur Microscopic SEDIMENT EXAMINED Urine RBC (0 - 5 /HPF) PACKD H Urine WBC (0 - 2 /HPF) PACKD H Urine Bacteria (NEG/NONE) PACKD H Urine Hemoglobin (NEG) LARGE H Urine Glucose (N MG/DL) NEG 05/18 05/18 0738 0735 Chemistry Sodium (137 - 145 mmol/L) 128 L Potassium (3.5 - 5.1 mmol/L) 3.3 L Chloride (98 - 107 mmol/L) 103 Carbon Dioxide (22 - 30 mmol/L) 8 *L Anion Gap (5 - 16) 17 H BUN (9 - 20 mg/dL) 95 H Creatinine (0.7 - 1.2 mg/dL) 9.5 *H Estimated GFR (>60 ml/min) 6 L BUN/Creatinine Ratio (7 - 25 %) 10.0 Glucose (65 - 99 mg/dL) 123 H Serum Osmolality (285 - 295 MOSM/KG) 309 H Calcium (8.4 - 10.2 mg/dL) 6.3 L Total Bilirubin (0.2 - 1.3 mg/dL) 0.6 AST (17 - 59 U/L) 19 ALT (21 - 72 U/L) 17 L Alkaline Phosphatase (< 127 U/L) 104 Creatine Kinase (55 - 170 U/L) 107 Troponin I (<0.11 ng/ml) < 0.01 Total Protein (6.3 - 8.2 g/dL) 8.6 H Albumin (3.5 - 5.0 g/dL) 3.4 L Globulin (1.9 - 4.2 gm/dL) 5.2 H Albumin/Globulin Ratio (1.1 - 2.2 %) 0.7 L Coagulation APTT (25 - 37 SEC) 56 H Hematology CBC w Diff NO MAN DIFF REQ WBC (4.8 - 10.8 /CUMM) 12.9 H RBC (4.70 - 6.10 /CUMM) 3.79 L Hgb (14.0 - 18.0 G/DL) 12.1 L Hct (42 - 52 %) 34.4 L MCV (80.0 - 94.0 FL) 91.0 MCH (27.0 - 31.0 PG) 32.1 H MCHC (33.0 - 37.0 G/DL) 35.3 RDW (11.5 - 14.5 %) 14.7 H Plt Count (130 - 400 /CUMM) 126 L MPV (7.4 - 10.4 FL) 8.2 Gran % (42.2 - 75.2 %) 71.7 Lymphocytes % (20.5 - 51.1 %) 20.2 L Monocytes % (1.7 - 9.3 %) 6.6 Eosinophils % (0 - 5 %) 1.4 Basophils % (0.0 - 2.0 %) 0.1 Absolute Granulocytes (1.4 - 6.5 /CUMM) 9.3 H Absolute Lymphocytes (1.2 - 3.4 /CUMM) 2.6 Absolute Monocytes (0.10 - 0.60 /CUMM) 0.9 H Absolute Eosinophils (0.0 - 0.7 /CUMM) 0.2 Absolute Basophils (0.0 - 0.2 /CUMM) 0 Serology Hep Bs Antigen (NONREACTIVE) NONREACTIVE Hep Bs Antibody (NONREACTIVE) NONREACTIVE Urines Ur Random Creatinine Cancelled Ur Random Sodium Cancelled Ur Random Potassium Cancelled Fraction Sodium Excret Cancelled Last 24 Hours of Attila Results: Blood cultures 2 May 18 negative Urine culture May 18 pending Diagnostic Data Recent Imaging Findings: Chest x-ray revealed minimal bibasilar atelectasis. X-ray of the lumbosacral spine revealed chronic changes, with hardware in place L4-L5, with no evidence of loosening or failure and no evidence of any acute fracture. X-ray of the right hip was negative for any subluxation or fracture. CT of the head and cervical spine were negative for any acute process. Renal ultrasound May 18 no evidence of hydronephrosis Assessment/Plan Assessment/Plan Impression: This is a 58-year-old man with AIDS, maintained on antiretroviral therapy, with his last viral load undetectable and his CD4 count approximately 500, chronic kidney disease, with a neurogenic bladder, for which he catheterizes himself 3 times a day, with a history of recurrent urinary tract infections, admitted early this morning following a fall in the bathroom on the day prior to admission, with the complaint of weakness and numbness in his back and down his legs, found to be afebrile with a mild leukocytosis and acute renal failure, with his urinalysis revealing packed RBCs and packed WBCs and with his renal ultrasound negative for hydronephrosis. The etiology of his acute renal failure is unclear. It may well be prerenal as he is felt by Renal to be volume depleted. His urinalysis is abnormal but this may be difficult to interpret in view of his acute renal failure. He may prove to have bacteriuria but, as he self catheterizes 3 times a day, this is of unclear significance. His presentation is not suggestive of infection as he was apparently in his usual state of health until his fall; therefore I am not convinced that he has any active infection and, as he is relatively stable, feel that he can be followed off antibiotics. He may be continued on his antiretroviral therapy but the dosing should be discussed with pharmacy and his HIV physician at the [facility]. Suggestion: 1. Follow-up recent cultures 2. Further management of his acute renal failure per Renal 3. Further evaluation of his complaints of back and leg weakness/numbness per Medicine 4. Would confer with his HIV physician at [facility] regarding continuing his antiretroviral meds in view of his renal failure 5. Would continue to follow off antibiotics Consult Acknowledgment - Thank you for your consult request.
[2018-05-19] VITALS: BP 100/70
[2018-05-19 05:30] LABS: ABSOLUTE BASOPHIL COUNT 0 /CUMM (0.0-0.2); ABSOLUTE EOSINOPHIL COUNT 0.2 /CUMM (0.0-0.7); ABSOLUTE GRANULOCYTE CT 5.9 /CUMM (1.4-6.5); ABSOLUTE LYMPH COUNT 2.7 /CUMM (1.2-3.4); ABSOLUTE MONOCYTE COUNT 0.6 /CUMM (0.10-0.60); BASOPHIL % 0.3 % (0.0-2.0); EOSINOPHIL % 2.2 % (0-5); GRANULOCYTE % 63.1 % (42.2-75.2); HEMATOCRIT 30.1 % (42-52); MEAN CORPUSCULAR HGB CONC 34.6 G/DL (33.0-37.0); MEAN CORPUSCULAR VOLUME 92.4 FL (80.0-94.0); MEAN PLATELET VOLUME 7.8 FL (7.4-10.4); PLATELET COUNT 97 /CUMM (130-400); RBC DISTRIBUTION WIDTH 14.8 % (11.5-14.5); RED BLOOD CELL CT 3.27 /CUMM (4.70-6.10); WHITE BLOOD CELL COUNT 9.4 /CUMM (4.8-10.8)
--- NOTE | 2018-05-19 07:27 | ECHOCARDIOGRAM REPORT ---
DEIRDRE STEINER Age: 58 : 1960 Gender: M Exam Date: 05/18/2018 15:00 Exam Location: [facility] Ht (in): 76 Wt (lb): 250 BSA: 2.49 BP: 94 / 55 Ordering Physician: Gina Barrios MD Referring Physician: Gina Barrios MD Technologist: Victoria Quintero [facility] Room Number: 109 Indications: Shortness of breath Rhythm: Sinus Technical Quality: fair FINDINGS Left Ventricle Normal left ventricular size, wall thickness and systolic function with no obvious regional wall motion abnormalities. Normal left ventricular diastolic filling pattern for age. The ejection fraction is visually estimated at 60%. Right Ventricle The right ventricle is normal in size and function. Right Atrium The right atrium is normal in size. Left Atrium The left atrium is normal in size. The interatrial septum is intact. Mitral Valve The mitral valve is normal in structure and function. There is no mitral regurgitation. Aortic Valve Structurally normal aortic valve without significant sclerosis or stenosis. There is no aortic regurgitation. Tricuspid Valve The tricuspid valve is normal in structure and function. There is no tricuspid regurgitation. Pulmonic Valve Structurally normal pulmonic valve. There is trace pulmonic regurgitation. Pericardium Normal pericardium without effusion. No pleural effusion. Great Vessels Normal aortic root dimension. The aortic arch and great vessels are well seen and are normal. CONCLUSIONS 1. Normal EF of 60%. 2. Trace pulmonic regurgitation. Dragan Knight M.D. (Electronically Signed) Final Date: 19 May 2018 07:21 MEASUREMENTS (Male / Female) Normal Values 2D ECHO LV Diastolic Diameter PLAX 4.3 cm 4.2 - 5.9 / 3.9 - 5.3 cm LV Systolic Diameter PLAX 2.9 cm 2.1 - 4.0 cm LV Fractional Shortening PLAX 32.6 % 25 - 46 % LV Ejection Fraction 2D Teich 61.2 % IVS Diastolic Thickness 1.0 cm LVPW Diastolic Thickness 1.0 cm LV Relative Wall Thickness 0.5 RV Internal Dim ED PLAX 2.7 cm 1.9 - 3.8 cm LVOT Diameter 2.4 cm Aortic Root Diameter 3.9 cm LA Systolic Diameter LX 3.3 cm 3.0 - 4.0 / 2.7 - 3.8 cm LA Volume 44.0 cm 18 - 58 / 22 - 52 cm Ascending Aorta Diameter 3.8 cm DOPPLER AV Peak Velocity 139.0 cm/s AV Peak Gradient 7.7 mmHg AV Mean Velocity 101.0 cm/s AV Mean Gradient 5.0 mmHg AV Velocity Time Integral 26.0 cm LVOT Peak Velocity 118.0 cm/s LVOT Peak Gradient 5.6 mmHg LVOT Mean Velocity 74.0 cm/s LVOT Mean Gradient 3.0 mmHg LVOT Velocity Time Integral 23.1 cm LVOT Stroke Volume 104.5 cm AV Area Cont Eq vti 4.0 cm AV Area Cont Eq pk 3.8 cm MV Peak Velocity 105.0 cm/s MV Peak Gradient 4.4 mmHg MV Mean Velocity 61.6 cm/s MV Mean Gradient 2.0 mmHg Mitral E Point Velocity 101.0 cm/s Mitral A Point Velocity 67.6 cm/s Mitral E to A Ratio 1.5 MV PHT Velocity 109.0 cm/s MV Deceleration [place] 437.0 cm/s MV Pressure Half Time 74.8 ms MV Area PHT 2.9 cm MV Deceleration Time 161.0 ms PV Peak Velocity 94.0 cm/s PV Peak Gradient 3.5 mmHg PV Mean Velocity 67.6 cm/s PV Mean Gradient 2.0 mmHg PV Velocity Time Integral 16.6 cm LV E' Lateral Velocity 14.5 cm/s Mitral E to LV E' Lateral Ratio 7.0 LV E' Septal Velocity 14.3 cm/s Mitral E to LV E' Septal Ratio 7.1
[2018-05-19 08:00] VITALS: BP 130/70
--- NOTE | 2018-05-19 08:17 | PN- Nephrology ---
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 ABDIRASHID of uncertain etiology vs advancement of chronic disease. He is making urine but only slight improvement in renal function overnight. US with very echogenic kidneys. Hypokalemic, hyperphosphatemic today. No symptoms and acidosis better with IV bicarb. Suggestion: Discussed with patient that he has advanced ckd and may need dialysis. If he has ABDIRASHID dialysis will delay/impair recovery. It seems reasonable to wait another 24-48 hrs to see if there is any improvement in his labs. If not will probably need dialysis, which I would assume would be permanent given size of kidneys and degree of echogenicity. For today, would allow to eat, give calcium acetate 1334 mg po tid with meals as phosphate binder. Repleat potassium as you are doing. Decrease normal bicarb drip to around 100 cc/hr. Subjective Subjective: Patient states he feels well, no nausea. UO of about 100 cc/hr. US shows very echogenic kidneys, right somewhat smaller than right. No hydronephrosis. Objective Vital Signs and I&Os Vital Signs Date Time Temp Pulse Resp B/P B/P Pulse O2 O2 Flow FiO2 Mean Ox Delivery Rate 05/19 0400 95 Room Air 05/19 0000 96.9 79 24 100/70 94 Room Air 05/19 0000 94 Room Air 05/18 2000 Room Air 05/18 1600 97.7 80 21 102/60 98 Room Air 05/18 1600 98 Room Air 05/18 1315 Room Air 05/18 1315 98.2 76 20 98/60 96 Room Air 05/18 1156 97.0 78 18 94/55 94 Room Air 05/18 1142 75 20 99/62 97 Room Air 05/18 1107 97.0 80 105/59 05/18 1010 97.6 79 20 97/62 98 Room Air 05/18 0853 84 90/54 05/18 0818 90 98/56 Intake & Output 05/19 1600 05/19 0400 05/18 1600 05/18 0400 05/17 1600 05/17 0400 Intake Total 2599 1478 100 Output Total 1285 1020 250 Balance 1314 458 -150 Intake, IV 2499 758 100 Intake, Oral 100 720 Output, Urine 1285 1020 250 Patient 193 lb Weight Weight Bed scale Measurement Method Physical Exam: NAD VS as above Lungs: rhonchi bilaterally CV: no rub Abd: nontender Exts: no edema Neuro: A&O, no asterixisi. Current Medications: Current Medications Sig/Puma Start time Last Medication Dose Route Stop Time Status Admin Abacavir Sulfate 300 MG BID 05/18 1315 AC 05/19 PO 0100 Albuterol Sulfate 2 PUF Q4-6 PRN PRN 05/18 1315 AC INH Alprazolam 0.5 MG AT BEDTIME 05/18 2100 DC 05/18 PO 05/18 Alprazolam 0 .STK-MED ONE 05/18 2013 DC PO Calcium Carbonate 1,250 MG ONCE ONE 05/18 2230 DC 05/19 PO 05/18 2231 0100 Gabapentin 300 MG ONCE ONE 05/18 1900 DC 05/18 PO 05/18 1901 1800 Heparin Sodium 5,000 UNIT Q8 05/18 1400 AC 05/19 (Porcine) SC 0526 Magnesium Sulfate 1 GM ONCE ONE 05/18 2345 DC 05/19 Dextrose/Water 100 ML IV 05/19 0344 0143 Oxycodone HCl 5 MG ONCE ONE 05/18 1630 DC 05/18 PO 05/18 1631 1630 Potassium Chloride 20 MEQ ONCE ONE 05/19 0730 DC IV 05/19 0731 Potassium Chloride 40 MEQ ONCE ONE 05/19 0730 DC 05/19 PO 05/19 0731 0751 Sodium Bicarbonate 150 MEQ Q6H 05/19 0800 AC Dextrose/Water 1,000 ML IV Sodium Bicarbonate 150 MEQ Q10H 05/18 1315 DC 05/19 Dextrose/Water 1,000 ML IV 0729 Sodium Chloride 1,000 ML Q6H 05/19 0030 AC 05/19 IV 05/19 1829 0739 Sodium Chloride 1,000 ML BOLUS ONE 05/18 2230 DC 05/18 IV 05/18 2329 2333 Sodium Chloride 1,000 ML BOLUS ONE 05/18 2230 DC 05/18 IV 05/18 2329 2225 Sodium Chloride 1,000 ML Q6H 05/18 2200 DC 05/18 IV 05/19 1559 2206 Sodium Chloride 1,000 ML Q10H 05/18 1130 DC 05/18 IV 1143 Sodium Chloride 500 ML BOLUS ONE 05/18 1000 DC 05/18 IV 05/18 1059 0959 Sodium Chloride 1,000 ML ONCE ONE 05/18 0915 DC 05/18 IV 05/18 7661 0033 Results Pertinent Lab Results: Laboratory Tests 05/19 05/19 05/18 05/18 0415 9119 5006 7201 Blood Gas Bicarbonate Actual (22 - 26 MEQ/L) 14 L Mixed VBG pH (7.31 - 7.41 PH) 7.20 L Mixed VBG pCO2 (41 - 51 TORR) 35 L Mixed VBG O2 Saturation (35 - 45 TORR) 39 P-50 (Temp Corrected) Y Carboxyhemoglobin (1.5 - 5.0 %) 1 L O2 Concentration % RA Temperature (97.0 - 100.0 FARH) 98.1 Chemistry Sodium (137 - 145 mmol/L) 132 L 128 L Potassium (3.5 - 5.1 mmol/L) 2.8 *L 3.0 L Chloride (98 - 107 mmol/L) 104 102 Carbon Dioxide (22 - 30 mmol/L) 15 L 11 L Anion Gap (5 - 16) 13 15 BUN (9 - 20 mg/dL) 91 H 95 H Creatinine (0.7 - 1.2 mg/dL) 8.8 *H 9.2 *H Estimated GFR (>60 ml/min) 6 L 6 L Glucose (65 - 99 mg/dL) 116 H 140 H Lactic Acid (0.7 - 2.1 mmol/L) 1.0 Calcium (8.4 - 10.2 mg/dL) 5.7 *L 5.9 *L Phosphorus (2.5 - 4.5 mg/dL) 8.7 H 9.5 H Magnesium (1.6 - 2.3 mg/dL) 2.1 1.9 Total Bilirubin (0.2 - 1.3 mg/dL) 0.5 0.6 AST (17 - 59 U/L) 17 17 ALT (21 - 72 U/L) 21 18 L Albumin (3.5 - 5.0 g/dL) 2.6 L 2.8 L Hematology CBC w Diff NO MAN DIFF REQ WBC (4.8 - 10.8 /CUMM) 9.4 RBC (4.70 - 6.10 /CUMM) 3.27 L Hgb (14.0 - 18.0 G/DL) 10.4 L Hct (42 - 52 %) 30.1 L MCV (80.0 - 94.0 FL) 92.4 MCH (27.0 - 31.0 PG) 32.0 H MCHC (33.0 - 37.0 G/DL) 34.6 RDW (11.5 - 14.5 %) 14.8 H Plt Count (130 - 400 /CUMM) 97 L MPV (7.4 - 10.4 FL) 7.8 Gran % (42.2 - 75.2 %) 63.1 Lymphocytes % (20.5 - 51.1 %) 28.2 Monocytes % (1.7 - 9.3 %) 6.2 Eosinophils % (0 - 5 %) 2.2 Basophils % (0.0 - 2.0 %) 0.3 Absolute Granulocytes (1.4 - 6.5 /CUMM) 5.9 Absolute Lymphocytes (1.2 - 3.4 /CUMM) 2.7 Absolute Monocytes (0.10 - 0.60 /CUMM) 0.6 Absolute Eosinophils (0.0 - 0.7 /CUMM) 0.2 Absolute Basophils (0.0 - 0.2 /CUMM) 0 Miscellaneous Phlebotomy Draw Site PIVO 05/18 05/18 05/18 05/18 05/18 1205 1153 1139 1126 1126 Chemistry Troponin I Cancelled Coagulation PT Cancelled INR Cancelled Miscellaneous Ref Lab Test Result Pending Serology Hep Bs Antibody Cancelled Urines Urine Color Cancelled Urine Clarity Cancelled Urine pH Cancelled Ur Specific [place] Cancelled Urine Protein Cancelled Urine Ketones Cancelled Urine Nitrite Cancelled Urine Bilirubin Cancelled Urine Urobilinogen Cancelled Ur Leukocyte Esterase Cancelled Ur Microscopic Cancelled Urine Hemoglobin Cancelled Urine Osmolality Cancelled Urine Glucose Cancelled 05/18 05/18 1029 UNK Chemistry Sodium Cancelled Potassium Cancelled Chloride Cancelled Carbon Dioxide Cancelled Anion Gap Cancelled BUN Cancelled Creatinine Cancelled Glucose Cancelled Calcium Cancelled Phosphorus Cancelled Magnesium Cancelled Total Bilirubin Cancelled AST Cancelled ALT Cancelled Albumin Cancelled Urines Urine Color (YEL,AMB,STR) BLDY H Urine Clarity (CLEAR) CLDY H Urine pH (5.0 - 8.0) 5.5 Ur Specific [place] (1.001 - 1.035) 1.020 Urine Protein (NEG,<30 MG/DL) >=300 H Urine Ketones (NEG) TRACE H Urine Nitrite (NEG) POS H Urine Bilirubin (NEG) NEG@ICTO Urine Urobilinogen (0.1 - 1.0 EU/dl) 1.0 Ur Leukocyte Esterase (NEG) LARGE H Ur Microscopic SEDIMENT EXAMINED Urine RBC (0 - 5 /HPF) PACKD H Urine WBC (0 - 2 /HPF) PACKD H Urine Bacteria (NEG/NONE) PACKD H Urine Hemoglobin (NEG) LARGE H Urine Glucose (N MG/DL) NEG 05/18 05/18 0738 0735 Chemistry Sodium (137 - 145 mmol/L) 128 L Potassium (3.5 - 5.1 mmol/L) 3.3 L Chloride (98 - 107 mmol/L) 103 Carbon Dioxide (22 - 30 mmol/L) 8 *L Anion Gap (5 - 16) 17 H BUN (9 - 20 mg/dL) 95 H Creatinine (0.7 - 1.2 mg/dL) 9.5 *H Estimated GFR (>60 ml/min) 6 L BUN/Creatinine Ratio (7 - 25 %) 10.0 Glucose (65 - 99 mg/dL) 123 H Serum Osmolality (285 - 295 MOSM/KG) 309 H Calcium (8.4 - 10.2 mg/dL) 6.3 L Total Bilirubin (0.2 - 1.3 mg/dL) 0.6 AST (17 - 59 U/L) 19 ALT (21 - 72 U/L) 17 L Alkaline Phosphatase (< 127 U/L) 104 Creatine Kinase (55 - 170 U/L) 107 Troponin I (<0.11 ng/ml) < 0.01 Total Protein (6.3 - 8.2 g/dL) 8.6 H Albumin (3.5 - 5.0 g/dL) 3.4 L Globulin (1.9 - 4.2 gm/dL) 5.2 H Albumin/Globulin Ratio (1.1 - 2.2 %) 0.7 L Coagulation APTT (25 - 37 SEC) 56 H Hematology CBC w Diff NO MAN DIFF REQ WBC (4.8 - 10.8 /CUMM) 12.9 H RBC (4.70 - 6.10 /CUMM) 3.79 L Hgb (14.0 - 18.0 G/DL) 12.1 L Hct (42 - 52 %) 34.4 L MCV (80.0 - 94.0 FL) 91.0 MCH (27.0 - 31.0 PG) 32.1 H MCHC (33.0 - 37.0 G/DL) 35.3 RDW (11.5 - 14.5 %) 14.7 H Plt Count (130 - 400 /CUMM) 126 L MPV (7.4 - 10.4 FL) 8.2 Gran % (42.2 - 75.2 %) 71.7 Lymphocytes % (20.5 - 51.1 %) 20.2 L Monocytes % (1.7 - 9.3 %) 6.6 Eosinophils % (0 - 5 %) 1.4 Basophils % (0.0 - 2.0 %) 0.1 Absolute Granulocytes (1.4 - 6.5 /CUMM) 9.3 H Absolute Lymphocytes (1.2 - 3.4 /CUMM) 2.6 Absolute Monocytes (0.10 - 0.60 /CUMM) 0.9 H Absolute Eosinophils (0.0 - 0.7 /CUMM) 0.2 Absolute Basophils (0.0 - 0.2 /CUMM) 0 Serology Hep Bs Antigen (NONREACTIVE) NONREACTIVE Hep Bs Antibody (NONREACTIVE) NONREACTIVE Urines Ur Random Creatinine Cancelled Ur Random Sodium Cancelled Ur Random Potassium Cancelled Fraction Sodium Excret Cancelled
--- NOTE | 2018-05-19 10:35 | PN- Infect Dx ---
Subjective Subjective: Afebrile. He feels well though he did not sleep well last night. He still reports pain and difficulty in raising his right leg. Objective Last 24 Hrs of Vital Signs/I&O Vital Signs Date Time Temp Pulse Resp B/P B/P Pulse O2 O2 Flow FiO2 Mean Ox Delivery Rate 05/19 0400 95 Room Air 05/19 0000 96.9 79 24 100/70 94 Room Air 05/19 0000 94 Room Air 05/18 2000 Room Air 05/18 1600 97.7 80 21 102/60 98 Room Air 05/18 1600 98 Room Air 05/18 1315 Room Air 05/18 1315 98.2 76 20 98/60 96 Room Air 05/18 1156 97.0 78 18 94/55 94 Room Air 05/18 1142 75 20 99/62 97 Room Air 05/18 1107 97.0 80 105/59 Intake & Output 05/19 1600 05/19 0800 05/19 0000 Intake Total 2599 1478 Output Total 1285 1020 Balance 1314 458 Intake, IV 2499 758 Intake, Oral 100 720 Output, Urine 1285 1020 Physical Exam Other Physical Findings: He appears comfortable in no acute distress Lungs clear Heart regular rhythm with no murmur Abdomen is soft, nontender with positive bowel sounds Back no CVA tenderness Neuro weakness on plantarflexion of the right foot Mcgregor catheter remains in place Results Last 24 Hours of Lab Results: Laboratory Tests 05/19 05/19 05/18 05/18 0415 0100 5 1945 Blood Gas Bicarbonate Actual (22 - 26 MEQ/L) 14 L Mixed VBG pH (7.31 - 7.41 PH) 7.20 L Mixed VBG pCO2 (41 - 51 TORR) 35 L Mixed VBG O2 Saturation (35 - 45 TORR) 39 P-50 (Temp Corrected) Y Carboxyhemoglobin (1.5 - 5.0 %) 1 L O2 Concentration % RA Temperature (97.0 - 100.0 FARH) 98.1 Chemistry Sodium (137 - 145 mmol/L) 132 L 128 L Potassium (3.5 - 5.1 mmol/L) 2.8 *L 3.0 L Chloride (98 - 107 mmol/L) 104 102 Carbon Dioxide (22 - 30 mmol/L) 15 L 11 L Anion Gap (5 - 16) 13 15 BUN (9 - 20 mg/dL) 91 H 95 H Creatinine (0.7 - 1.2 mg/dL) 8.8 *H 9.2 *H Estimated GFR (>60 ml/min) 6 L 6 L Glucose (65 - 99 mg/dL) 116 H 140 H Lactic Acid (0.7 - 2.1 mmol/L) 1.0 Calcium (8.4 - 10.2 mg/dL) 5.7 *L 5.9 *L Phosphorus (2.5 - 4.5 mg/dL) 8.7 H 9.5 H Magnesium (1.6 - 2.3 mg/dL) 2.1 1.9 Total Bilirubin (0.2 - 1.3 mg/dL) 0.5 0.6 AST (17 - 59 U/L) 17 17 ALT (21 - 72 U/L) 21 18 L Albumin (3.5 - 5.0 g/dL) 2.6 L 2.8 L Hematology CBC w Diff NO MAN DIFF REQ WBC (4.8 - 10.8 /CUMM) 9.4 RBC (4.70 - 6.10 /CUMM) 3.27 L Hgb (14.0 - 18.0 G/DL) 10.4 L Hct (42 - 52 %) 30.1 L MCV (80.0 - 94.0 FL) 92.4 MCH (27.0 - 31.0 PG) 32.0 H MCHC (33.0 - 37.0 G/DL) 34.6 RDW (11.5 - 14.5 %) 14.8 H Plt Count (130 - 400 /CUMM) 97 L MPV (7.4 - 10.4 FL) 7.8 Gran % (42.2 - 75.2 %) 63.1 Lymphocytes % (20.5 - 51.1 %) 28.2 Monocytes % (1.7 - 9.3 %) 6.2 Eosinophils % (0 - 5 %) 2.2 Basophils % (0.0 - 2.0 %) 0.3 Absolute Granulocytes (1.4 - 6.5 /CUMM) 5.9 Absolute Lymphocytes (1.2 - 3.4 /CUMM) 2.7 Absolute Monocytes (0.10 - 0.60 /CUMM) 0.6 Absolute Eosinophils (0.0 - 0.7 /CUMM) 0.2 Absolute Basophils (0.0 - 0.2 /CUMM) 0 Miscellaneous Phlebotomy Draw Site PIVO 05/18 05/18 05/18 05/18 05/18 1205 1153 1139 1126 1126 Chemistry Troponin I Cancelled Coagulation PT Cancelled INR Cancelled Miscellaneous Ref Lab Test Result Pending Serology Hep Bs Antibody Cancelled Urines Urine Color Cancelled Urine Clarity Cancelled Urine pH Cancelled Ur Specific [place] Cancelled Urine Protein Cancelled Urine Ketones Cancelled Urine Nitrite Cancelled Urine Bilirubin Cancelled Urine Urobilinogen Cancelled Ur Leukocyte Esterase Cancelled Ur Microscopic Cancelled Urine Hemoglobin Cancelled Urine Osmolality Cancelled Urine Glucose Cancelled Last 24 Hours of [place] Results: Urine culture May 18 greater than 100,000 colonies of gram-negative rods Blood cultures 2 May 18 negative Assessment/Plan ID Impression: Overall stable, with his temperatures and white blood cell count normal, off antibiotics, with the positive urine culture noted and of unclear significance as he catheterizes himself 3 times a day. His renal failure has only improved slightly, with Renal comments regarding possible need for dialysis noted. Suggestion: 1. Further management of his acute renal failure per Renal 2. Further management of his back and leg weakness/numbness per Medicine 3. Continue to follow off antibiotics
--- NOTE | 2018-05-19 12:46 | PN- Resident CRCU ---
SalomonMoncada 05/19/18 1216: Subjective HPI/CRCU Issues: 58 year old male with PMH of HIV on HAART, HCV s/p Harvoni, CKD IIIA, anxiety, and asthma presented to the ED with main complaint of mechanical fall 23 hours ago. Patient states that he was using the restroom when he slipped and fell down , he hurt his head against the wall, he was on the floor for few minutes after which he was able to stand up on his own. Patient has neurogenic bladder and he straight caths himself 3 times daily he noticed that his urine was of decreased amount and looks of bloody for few days. On admission his labs were significant for leukocytosis 12.9, thrombocytopenia 129, HPI with creatinine 9.5 his baseline is 2.5, hyponatremia sodium 128, hypokalemia, anion gap metabolic acidosis, lactic acid was normal, elevated BNP, urine analysis was significant for leukocytosis large leukocyte esterase and hematuria. Acute on chronic kidney injury Anion gap metabolic acidosis, improving Recent mechanical fall History of UTI, neurogenic bladder on straight cath. Leukocytosis, improving Hypovolemic hyponatremia Hypokalemia and hypocalcemia Bedsores on the back History of HIV on anti-retroviral medications. History of hepatitis C s/p treated with harvoni 24 Hour Events: Overnight events. Patient remained afebrile overnight. Seen and examined this morning. He is on room air maintaining saturation 95%. Patient denied chest pain palpitation, nausea, vomiting, chills, fever, abdominal pain and dysuria. Patient was nothing by mouth overnight for catheterization placement for dialysis but nephrology wants to wait for 1-2 days if it responds to IV fluids. 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 Patient states that he was using the restroom when he slipped and fell down, he hurt his head against the wall, he was on the floor for few minutes after which he was able to stand up on his own. Patient has neurogenic bladder and he straight caths himself 3 times daily he noticed that his urine was of decreased amount and looks of bloody for few days. On admission his labs were significant for leukocytosis 12.9, thrombocytopenia 129, HPI with creatinine 9.5 his baseline is 2.5, hyponatremia sodium 128, hypokalemia, anion gap metabolic acidosis, lactic acid was normal, elevated BNP, urine analysis was significant for leukocytosis large leukocyte esterase and hematuria. Following the patient in ICU following problems. Acute on chronic kidney injury with metabolic acidosis: -Continue IV fluids at the rate of 150 mL/h -Continue bicarbonate drip @ 100 mEq per hour. Patient's anion gap has been improved today it's 15. -Patient's acute on chronic kidney injury could be due to prerenal or progression of his chronic kidney injury due to HIV and hepatitis C. -Today his creatinine is 8.8 and BUN is 91 -Nephrology recommended to wait for 1-2 more days if his renal function improves without dialysis. Discussed with patient won't improve then he will on possible permanent dialysis considering his size of the kidney due to chronic kidney injury. -Follow-up nephrology recommendations. Hypokalemia: -Possibly due to low oral intake or unknown etiology. -His potassium was 2.8 today was repleted with oral and IV. -We'll monitor his potassium level Hyponatremia and hypocalcemia: -Possibly patient has hypovolemic hyponatremia. Today his sodium is 132. -We will keep monitoring it patient is getting normal saline. -His corrected calcium level is 6.4 as his albumin is 2.6. -Patient will get calcium acetate 1334 milligrams 3 times a day. -Calcium acetate will also act as phosphate binder. Hyperphosphatemia: -Due to low excretion considering his acute on chronic kidney injury. -Calcium acetate will also act as phosphate binder -We will monitor his phosphate level. Today it was 8.7 History of HIV: -Patient is getting 3 anti retroviral medication. -Continue abacavir 300 mg twice a day and tivicay 50mg daily. -Lamivudine dose was reduced to 50mg from 150mg considering his GFR is 6 as recommended by his physician prescribing him HIV medications. History of recurrent UTI, neurogenic bladder: -Patient was on self-catheterization 3 times a day. -Urine culture is positive with gram negatives rods. In the past he was positive urine culture with Escherichia coli, possibly chronic colonization. -Patient is afebrile and WBC count came back within normal limits. -Keeping him off antibiotics and will watch him closely for any UTI symptoms or signs of infection. History of chronic pain: -Follow-up pain pathway -Continue Dilaudid 1 mg every 4 when necessary. History of thrombocytopenia: -Possibly due to medication. -Avoid any medication that can decreased platelet count or it's function. Diet: -Renal diet. DVT prophylaxis: Mechanical only due to thrombocytopenia CODE STATUS: Full code Problem List: 1. Acute renal failure Pain Ratin Pain Location: none Pain Plan: pain pathway Tomorrow's Labs & Rationales: cbc/icu bundle Plan DVT/Prophylaxis: mechanical Dexter Velasquez MD 05/19/18 1305: Objective Vital Signs & I&O Last 8 Hrs of Vitals and I&O: see ICU chart Current Medications: Current Medications Sig/Puma Start time Last Medication Dose Route Stop Time Status Admin Abacavir Sulfate 300 MG BID 05/18 1315 AC 05/19 PO 0937 Albuterol Sulfate 2 PUF Q4-6 PRN PRN 05/18 1315 AC INH Alprazolam 0.5 MG AT BEDTIME 05/18 2100 DC 05/18 PO 05/18 Alprazolam 0 .STK-MED ONE 05/18 2013 DC PO Calcium Acetate 1,334 MG TID 05/19 1400 AC PO Calcium Acetate 667 MG ONCE ONE 05/19 0900 DC 05/19 PO 05/19 0901 0936 Calcium Acetate 667 MG ONCE ONE 05/19 0830 DC 05/19 PO 05/19 0831 0936 Calcium Carbonate 1,250 MG ONCE ONE 05/18 2230 DC 05/19 PO 05/18 223 0100 Gabapentin 300 MG ONCE ONE 05/18 1900 DC 05/18 PO 05/18 190 1800 Heparin Sodium 5,000 UNIT Q8 05/18 1400 DC 05/19 (Porcine) SC 0526 Hydromorphone HCl 1 MG Q4P PRN 05/19 930 AC 05/19 IV 1244 Lamivudine 50 MG DAILY 08/21 0930 UNV PO Magnesium Sulfate 1 GM ONCE ONE 05/18 2345 DC 05/19 Dextrose/Water 100 ML IV 05/19 0344 0143 Nystatin 1 DEDRICK BID 05/19 1216 AC TOP Oxycodone HCl 5 MG ONCE ONE 05/18 1630 DC 05/18 PO 05/18 1631 1630 Potassium Chloride 10 MEQ ONCE ONE 05/19 0830 DC 05/19 IV 05/19 0831 1030 Potassium Chloride 10 MEQ ONCE ONE 05/19 0815 DC 05/19 IV 05/19 0816 0914 Potassium Chloride 20 MEQ ONCE ONE 05/19 0730 CAN IV 05/19 0731 Potassium Chloride 40 MEQ ONCE ONE 05/19 0730 DC 05/19 PO 05/19 0731 0751 Sodium Bicarbonate 100 MEQ Q10H 05/19 1400 AC Dextrose/Water 1,000 ML IV Sodium Bicarbonate 150 MEQ Q6H 05/19 0800 DC Dextrose/Water 1,000 ML IV 05/19 1359 Sodium Bicarbonate 150 MEQ Q10H 05/18 1315 DC 05/19 Dextrose/Water 1,000 ML IV 0729 Sodium Chloride 1,000 ML Q6H 05/19 0030 AC 05/19 IV 05/19 1829 0739 Sodium Chloride 1,000 ML BOLUS ONE 05/18 2230 DC 05/18 IV 05/18 2329 2333 Sodium Chloride 1,000 ML BOLUS ONE 05/18 2230 DC 05/18 IV 05/18 2329 2225 Sodium Chloride 1,000 ML Q6H 05/18 2200 DC 05/18 IV 05/19 1559 2206 Sodium Chloride 1,000 ML ONCE ONE 05/18 0915 DC 05/18 IV 05/18 1554 0932 Attending MD Review Statement Attending Sign Off Attending Cosign Statement: I have: examined this patient, reviewed al EMR data, personally reviewd images, discussd w/resident/PA/FARM MACHINERY ERECTOR, discussed mgmt plan w/fidel, discussed mgmt plan w/CM, discussed mgmt plan w/pt, agreed w/resident/PA/FARM MACHINERY ERECTOR, amended to note. Other Findings: Impression 58 year old man * acute on chronic renal failure with reduced PO intake and borderline hypotension likely pre-renal in nature, with metabolic acidosis * hx of HIV * hx of recurrent UTI's * mild leukocytosis * s/p fall * hx of left BKA Plan Respiratory -stable, monitor ID -ID consultation appreciated -hx of HIV -panculture CVS -monitor hemodynamics Heme -cbc, coags Metabolic -nephrology consultation apprciated, holding off on HD, monitoring recovery of kidney function -monitor ins/outs -monitor electrolytes, creatinine Alimentary -diet Neuro -no acute issues TTS 35 minutes DVT prophylaxis at all times
[2018-05-19 16:00] VITALS: BP 102/64
[2018-05-20] VITALS: BP 120/62
[2018-05-20 05:47] LABS: ABSOLUTE BASOPHIL COUNT 0 /CUMM (0.0-0.2); ABSOLUTE EOSINOPHIL COUNT 0.1 /CUMM (0.0-0.7); ABSOLUTE GRANULOCYTE CT 5.1 /CUMM (1.4-6.5); ABSOLUTE LYMPH COUNT 1.3 /CUMM (1.2-3.4); ABSOLUTE MONOCYTE COUNT 0.5 /CUMM (0.10-0.60); BASOPHIL % 0.3 % (0.0-2.0); EOSINOPHIL % 2.1 % (0-5); GRANULOCYTE % 71.7 % (42.2-75.2); HEMATOCRIT 27.8 % (42-52); MEAN CORPUSCULAR HGB 32.5 PG (27.0-31.0); MEAN CORPUSCULAR HGB CONC 35.1 G/DL (33.0-37.0); MEAN CORPUSCULAR VOLUME 92.6 FL (80.0-94.0); MEAN PLATELET VOLUME 7.3 FL (7.4-10.4); PLATELET COUNT 93 /CUMM (130-400); WHITE BLOOD CELL COUNT 7.1 /CUMM (4.8-10.8)
--- NOTE | 2018-05-20 07:16 | PN- Resident CRCU ---
SalomonMoncada 05/20/18 0716: Subjective HPI/CRCU Issues: Acute on chronic kidney injury Anion gap metabolic acidosis, improving Recent mechanical fall History of UTI, neurogenic bladder on straight cath. Leukocytosis, improving Hypovolemic hyponatremia Hypokalemia and hypocalcemia Bedsores on the back History of HIV on anti-retroviral medications. History of hepatitis C s/p treated with harvoni 24 Hour Events: No overnight events. Patient remained afebrile. seen and examined this morning. He denied chest pain, shortness breath, nausea, vomiting, chills, fever, abdominal pain dysuria. Patient is complaining of intermittent cough and he brought to phle one time. We will send the phlegm for culture. Overall patient feels much improved. Objective Vital Signs & I&O Last 8 Hrs of Vitals and I&O: Intake & Output 05/20 1600 05/20 0800 05/20 0000 Intake Total 2600 1308 2054 Output Total 1950 1700 1600 Balance 650 -392 454 Intake, IV 1400 1108 1654 Intake, Oral 1200 200 400 Number 2 2 Bowel Movements Output, Urine 1950 1700 1600 Laboratory Tests 05/20 05/20 05/20 1305 1200 0450 Chemistry Sodium (137 - 145 mmol/L) 133 L Cancelled 136 L Potassium (3.5 - 5.1 mmol/L) 3.6 Cancelled 2.9 *L Chloride (98 - 107 mmol/L) 106 Cancelled 106 Carbon Dioxide (22 - 30 mmol/L) 16 L Cancelled 17 L Anion Gap (5 - 16) 11 Cancelled 13 BUN (9 - 20 mg/dL) 72 H Cancelled 80 H Creatinine (0.7 - 1.2 mg/dL) 7.0 *H Cancelled 7.2 *H Estimated GFR (>60 ml/min) 8 L 8 L Glucose (65 - 99 mg/dL) 186 H Cancelled 126 H Calcium (8.4 - 10.2 mg/dL) 5.8 *L Cancelled 5.4 *L Phosphorus (2.5 - 4.5 mg/dL) 4.2 Cancelled 5.8 H Magnesium (1.6 - 2.3 mg/dL) 1.6 Cancelled 1.7 Total Bilirubin (0.2 - 1.3 mg/dL) 0.3 Cancelled 0.4 AST (17 - 59 U/L) 26 Cancelled 26 ALT (21 - 72 U/L) 21 Cancelled 21 Albumin (3.5 - 5.0 g/dL) 2.2 L Cancelled 2.3 L 25-OH Vitamin D Total (30 - 100 ng/ml) 5.6 L PTH Intact (18.4 - 80.1 pg/ML) 485.7 H Hematology CBC w Diff NO MAN DIFF REQ WBC (4.8 - 10.8 /CUMM) 7.1 RBC (4.70 - 6.10 /CUMM) 3.00 L Hgb (14.0 - 18.0 G/DL) 9.7 L Hct (42 - 52 %) 27.8 L MCV (80.0 - 94.0 FL) 92.6 MCH (27.0 - 31.0 PG) 32.5 H MCHC (33.0 - 37.0 G/DL) 35.1 RDW (11.5 - 14.5 %) 15.0 H Plt Count (130 - 400 /CUMM) 93 L MPV (7.4 - 10.4 FL) 7.3 L Gran % (42.2 - 75.2 %) 71.7 Lymphocytes % (20.5 - 51.1 %) 18.3 L Monocytes % (1.7 - 9.3 %) 7.6 Eosinophils % (0 - 5 %) 2.1 Basophils % (0.0 - 2.0 %) 0.3 Absolute Granulocytes (1.4 - 6.5 /CUMM) 5.1 Absolute Lymphocytes (1.2 - 3.4 /CUMM) 1.3 Absolute Monocytes (0.10 - 0.60 /CUMM) 0.5 Absolute Eosinophils (0.0 - 0.7 /CUMM) 0.1 Absolute Basophils (0.0 - 0.2 /CUMM) 0 05/19 190 Chemistry Sodium (137 - 145 mmol/L) 132 L Cancelled Potassium (3.5 - 5.1 mmol/L) 2.9 *L Cancelled Chloride (98 - 107 mmol/L) 105 Cancelled Carbon Dioxide (22 - 30 mmol/L) 16 L Cancelled Anion Gap (5 - 16) 11 Cancelled BUN (9 - 20 mg/dL) 79 H Cancelled Creatinine (0.7 - 1.2 mg/dL) 7.0 *H Cancelled Estimated GFR (>60 ml/min) 8 L Glucose (65 - 99 mg/dL) 131 H Cancelled Calcium (8.4 - 10.2 mg/dL) 5.3 *L Cancelled Phosphorus (2.5 - 4.5 mg/dL) 6.3 H Cancelled Magnesium (1.6 - 2.3 mg/dL) 1.7 Cancelled Total Bilirubin (0.2 - 1.3 mg/dL) 0.4 Cancelled AST (17 - 59 U/L) 22 Cancelled ALT (21 - 72 U/L) 22 Cancelled Albumin (3.5 - 5.0 g/dL) 2.4 L Cancelled Intake & Output 05/20 1600 Intake Total 2600 Output Total 1950 Balance 650 Intake, IV 1400 Intake, Oral 1200 Number 2 Bowel Movements Output, Urine 1950 Exam General Appearance: well developed/nourished, no apparent distress, alert, awake Head: atraumatic Neck: normal inspection, supple Respiratory: normal breath sounds, chest non-tender Cardiovascular: regular rate/rhythm Gastrointestinal: normal bowel sounds, soft Extremities: Left leg BKA, rIGHT LEG CHRONIC VENOUS CHANGES Skin Temp/Moisture Exam: Warm/Dry Sepsis Skin Exam (color): Normal for Ethnicity Current Medications: Current Medications Sig/Puma Start time Last Medication Dose Route Stop Time Status Admin Abacavir Sulfate 300 MG BID 05/18 1315 AC 05/20 PO 1009 Albuterol Sulfate 2 PUF Q4-6 PRN PRN 05/18 1315 AC INH Alprazolam 0.25 MG ONCE ONE 05/20 1315 DC 05/20 PO 05/20 1316 1321 Alprazolam 0.5 MG ONCE ONE 05/20 0015 DC 05/20 PO 05/20 0016 0004 Alprazolam 0 .STK-MED ONE 05/20 0005 DC PO Calcium Acetate 1,334 MG TID 05/19 1400 AC 05/20 PO 1456 Calcium Carbonate 1,250 MG ONCE ONE 05/20 0115 DC 05/20 PO 05/20 0116 0118 Calcium Carbonate 1,250 MG DAILY 05/19 2200 DC 05/20 PO 0018 Calcium Gluconate 0 .STK-MED ONE 05/20 1041 DC IV Calcium Gluconate 1 GM ONCE ONE 05/20 0630 DC 05/20 Sodium Chloride 100 ML IV 05/20 0729 1043 Dolutegravir Sodium 50 MG DAILY 05/21 0900 AC PO Dolutegravir Sodium 50 MG .STK-MED ONE 05/20 1234 DC PO 05/20 1235 Dolutegravir Sodium 50 MG DAILY 05/18 1315 DC 05/20 PO 1156 Hydromorphone HCl 1 MG Q4P PRN 05/19 0930 AC 05/20 IV 0909 Lamivudine 50 MG DAILY 05/21 0900 AC PO Lamivudine 50 MG .STK-MED ONE 05/20 1234 DC PO 05/20 1235 Lamivudine 50 MG DAILY 05/20 0900 DC 05/20 PO 1155 Magnesium Oxide 400 MG ONE ONE 05/20 1500 DC 05/20 PO 05/20 1501 1459 Nystatin 1 DEDRICK BID 05/19 1216 AC 05/20 TOP 1009 Potassium Chloride 60 MEQ ONCE ONE 05/20 0845 DC 05/20 PO 05/20 0846 1009 Potassium Chloride 10 MEQ Q1H 05/20 0630 DC 05/20 IV 05/20 0931 1455 Potassium Chloride 60 MEQ ONCE ONE 05/20 0630 CAN PO 05/20 0631 Potassium Chloride 40 MEQ ONCE ONE 05/19 2200 DC 05/20 PO 05/19 2201 0004 Sodium Bicarbonate 100 MEQ Q10H 05/19 1400 AC 05/20 Dextrose/Water 1,000 ML IV 1327 Sodium Chloride 1,000 ML Q10H 05/20 1230 AC 05/20 IV 1321 Sodium Chloride 1,000 ML Q6H 05/19 0030 DC 05/19 IV 05/19 1829 1623 Impression/Plan Impression/Problem List Impression: 58 year old male with PMH of HIV on HAART, HCV s/p Harvoni, CKD IIIA, anxiety, 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 Patient states that he was using the restroom when he slipped and fell down, he hurt his head against the wall, he was on the floor for few minutes after which he was able to stand up on his own. Patient has neurogenic bladder and he straight caths himself 3 times daily he noticed that his urine was of decreased amount and looks of bloody for few days. On admission his labs were significant for leukocytosis 12.9, thrombocytopenia 129, HPI with creatinine 9.5 his baseline is 2.5, hyponatremia sodium 128, hypokalemia, anion gap metabolic acidosis, lactic acid was normal, elevated BNP, urine analysis was significant for leukocytosis large leukocyte esterase and hematuria. Following the patient in ICU following problems. Acute on chronic kidney injury with metabolic acidosis: -Stage IV CKD. -Continue bicarbonate drip @ 100 mEq per hour. Patient's anion gap has been improved today it's 13. -Patient's acute on chronic kidney injury could be due to prerenal or progression of his chronic kidney injury due to HIV and hepatitis C. -Today his creatinine is 7.2 and BUN is 80 -Continue iv fluids N/S @ 75 ml/h -Nephrology recommended to wait for 1-2 more days if his renal function improves without dialysis. Discussed with patient won't improve then he will on possible permanent dialysis considering his size of the kidney due to chronic kidney injury. -Follow-up nephrology recommendations. Hypokalemia: -Possibly due to low oral intake or unknown etiology. -His potassium was 2.9 today was repleted with oral and IV. -We'll monitor his potassium level Hyponatremia and hypocalcemia: -Possibly patient has hypovolemic hyponatremia. Today his sodium is 136. -We will keep monitoring it patient is getting normal saline. -His corrected calcium level is 6.4 as his albumin is 2.3. -Patient will get calcium acetate 1334 milligrams 3 times a day. -Calcium acetate will also act as phosphate binder. Hyperphosphatemia: -Due to low excretion considering his acute on chronic kidney injury. -Calcium acetate will also act as phosphate binder -We will monitor his phosphate level. Today it was 5.8 Cough and sputum: -Patient is complaining of intermittent cough and he brought up yellow colored phlegm one time. -Sputum culture were sent -Chest x-ray follow-up for pneumonia. Although patient is afebrile and WBC count within normal limits. History of HIV: -Patient is getting 3 anti retroviral medication. -Continue abacavir 300 mg twice a day and tivicay 50mg daily. -Lamivudine dose was reduced to 50mg from 150mg considering his GFR is 6 as recommended by his physician prescribing him HIV medications. History of recurrent UTI, neurogenic bladder: -Patient was on self-catheterization 3 times a day. -Urine culture is positive with gram negatives rods. In the past he was positive urine culture with Escherichia coli, possibly chronic colonization. -Patient is afebrile and WBC count came back within normal limits. -Keeping him off antibiotics and will watch him closely for any UTI symptoms or signs of infection. History of chronic pain: -Follow-up pain pathway -Continue Dilaudid 1 mg every 4 hourly when necessary. History of thrombocytopenia: -Possibly due to medication. -Avoid any medication that can decreased platelet count or it's function. History of chronic wounds: -On the back (left buttock) and right big toe and third toe. -Applying barrier cream everyday. Diet: -Renal diet. DVT prophylaxis: Mechanical only due to thrombocytopenia CODE STATUS: Full code Problem List: 1. [id number] kidney injury Pain Ratin Pain Location: NONE Pain Plan: PAIN PATHWAY Tomorrow's Labs & Rationales: CBC/ICU BUNDLE Plan DVT/Prophylaxis: mechanical Dexter Velasquez MD 05/20/18 0812: Attending MD Review Statement Attending Sign Off Attending Cosign Statement: I have: examined this patient, reviewed [employer] EMR data, personally reviewd images, discussd w/resident/PA/COMPUTER INSTRUCTOR, discussed mgmt plan w/fidel, discussed mgmt plan w/CM, discussed mgmt plan w/pt, agreed w/resident/PA/COMPUTER INSTRUCTOR, amended to note. Other Findings: Impression 58 year old man * acute on chronic renal failure with reduced PO intake and borderline hypotension likely pre-renal in nature, with metabolic acidosis * hx of HIV * hx of recurrent UTI's * mild leukocytosis * s/p fall * hx of left BKA Plan Respiratory -stable, monitor ID -ID consultation appreciated -hx of HIV -panculture CVS -monitor hemodynamics Heme -cbc, coags Metabolic -nephrology consultation apprciated, holding off on HD, monitoring recovery of kidney function -monitor ins/outs -monitor electrolytes, creatinine -bicarbonate per nephrology Alimentary -diet Neuro -no acute issues TTS 35 minutes DVT prophylaxis at all times
[2018-05-20 08:00] VITALS: BP 120/70
--- NOTE | 2018-05-20 10:17 | PN- Nephrology ---
Assessment/Plan Nephrology Assessment: ABDIRASHID, etiology unclear but superimposed on stage 4 ckd. Given that creatinine was only 2 two months ago it seems like there is some hope for recovery. Suggestion: Continue NS, bicarb, follow numbers. No urgent dialysis need and hope he can recover to former baseline. Continue daily labs. Subjective Subjective: Patient coughing but seems comfortable. Reviewed labs from [place], creatinen inlow 2s at end of February. Objective Vital Signs and I&Os Vital Signs Date Time Temp Pulse Resp B/P B/P Pulse O2 O2 Flow FiO2 Mean Ox Delivery Rate 05/20 0000 98.1 102 28 120/62 92 Room Air Room Air 05/19 1600 96.9 82 20 102/64 95 Room Air 05/19 1600 95 Room Air 05/19 1200 98 Room Air Intake & Output 05/20 1600 05/20 0400 05/19 1600 05/19 0400 05/18 1600 05/18 0400 Intake Total 1308 2054 5029 1478 100 Output Total 1700 1600 2585 1020 250 Balance -801 514 7116 458 -150 Intake, IV 1108 1654 4509 758 100 Intake, Oral 200 400 520 720 Number 2 1 Bowel Movements Output, Urine 1700 1600 2585 1020 250 Patient 193 lb 193 lb Weight Weight Bed scale Measurement Method Physical Exam: NAD VS as above Lungs: rhonchi bilaterally CV: no rub Abd: nontender Exts: no edema Neuro: A&O, no asterixis Current Medications: Current Medications Sig/Puma Start time Last Medication Dose Route Stop Time Status Admin Abacavir Sulfate 300 MG BID 05/18 1315 AC 05/20 PO 1009 Albuterol Sulfate 2 PUF Q4-6 PRN PRN 05/18 1315 AC INH Alprazolam 0.5 MG ONCE ONE 05/20 0015 DC 05/20 PO 05/20 0016 0004 Alprazolam 0 .STK-MED ONE 05/20 0005 DC PO Alprazolam 0.25 MG ONCE ONE 05/19 1700 DC 05/19 PO 05/19 1701 1701 Calcium Acetate 1,334 MG TID 05/19 1400 AC 05/20 PO 1009 Calcium Carbonate 1,250 MG ONCE ONE 05/20 0115 DC 05/20 PO 05/20 0116 0118 Calcium Carbonate 1,250 MG DAILY 05/19 2200 DC 05/20 PO 0018 Calcium Gluconate 1 GM ONCE ONE 05/20 06 DC Sodium Chloride 100 ML IV 05/20 0729 Hydromorphone HCl 1 MG Q4P PRN 05/19 0930 AC 05/20 IV 0909 Lamivudine 50 MG DAILY 05/20 0900 AC PO Lorazepam 0.25 MG ONE ONE 05/19 1645 CAN PO 05/19 1646 Magnesium Oxide 400 MG ONE ONE 05/19 1430 DC 05/19 PO 05/19 1431 1501 Nystatin 1 DEDRICK BID 05/19 1216 AC 05/20 TOP 1009 Potassium Chloride 60 MEQ ONCE ONE 05/20 0845 DC 05/20 PO 05/20 0846 1009 Potassium Chloride 10 MEQ Q1H 05/20 0630 DC 05/20 IV 05/20 0931 0902 Potassium Chloride 60 MEQ ONCE ONE 05/20 0630 CAN PO 05/20 0631 Potassium Chloride 40 MEQ ONCE ONE 05/19 2200 DC 05/20 PO 05/19 2201 0004 Potassium Chloride 40 MEQ ONCE ONE 05/19 1430 DC 05/19 PO 05/19 1431 1501 Sodium Bicarbonate 100 MEQ Q10H 05/19 1400 AC 05/20 Dextrose/Water 1,000 ML IV 0007 Sodium Bicarbonate 150 MEQ Q6H 05/19 0800 DC Dextrose/Water 1,000 ML IV 05/19 1359 Sodium Chloride 1,000 ML Q6H 05/19 0030 DC 05/19 IV 05/19 1829 1623 Results Pertinent Lab Results: Laboratory Tests 05/20 05/19 05/19 0450 2025 1900 Chemistry Sodium (137 - 145 mmol/L) 136 L 132 L Cancelled Potassium (3.5 - 5.1 mmol/L) 2.9 *L 2.9 *L Cancelled Chloride (98 - 107 mmol/L) 106 105 Cancelled Carbon Dioxide (22 - 30 mmol/L) 17 L 16 L Cancelled Anion Gap (5 - 16) 13 11 Cancelled BUN (9 - 20 mg/dL) 80 H 79 H Cancelled Creatinine (0.7 - 1.2 mg/dL) 7.2 *H 7.0 *H Cancelled Estimated GFR (>60 ml/min) 8 L 8 L Glucose (65 - 99 mg/dL) 126 H 131 H Cancelled Calcium (8.4 - 10.2 mg/dL) 5.4 *L 5.3 *L Cancelled Phosphorus (2.5 - 4.5 mg/dL) 5.8 H 6.3 H Cancelled Magnesium (1.6 - 2.3 mg/dL) 1.7 1.7 Cancelled Total Bilirubin (0.2 - 1.3 mg/dL) 0.4 0.4 Cancelled AST (17 - 59 U/L) 26 22 Cancelled ALT (21 - 72 U/L) 21 22 Cancelled Albumin (3.5 - 5.0 g/dL) 2.3 L 2.4 L Cancelled 25-OH Vitamin D Total (30 - 100 ng/ml) 5.6 L PTH Intact (18.4 - 80.1 pg/ML) 485.7 H Hematology CBC w Diff NO MAN DIFF REQ WBC (4.8 - 10.8 /CUMM) 7.1 RBC (4.70 - 6.10 /CUMM) 3.00 L Hgb (14.0 - 18.0 G/DL) 9.7 L Hct (42 - 52 %) 27.8 L MCV (80.0 - 94.0 FL) 92.6 MCH (27.0 - 31.0 PG) 32.5 H MCHC (33.0 - 37.0 G/DL) 35.1 RDW (11.5 - 14.5 %) 15.0 H Plt Count (130 - 400 /CUMM) 93 L MPV (7.4 - 10.4 FL) 7.3 L Gran % (42.2 - 75.2 %) 71.7 Lymphocytes % (20.5 - 51.1 %) 18.3 L Monocytes % (1.7 - 9.3 %) 7.6 Eosinophils % (0 - 5 %) 2.1 Basophils % (0.0 - 2.0 %) 0.3 Absolute Granulocytes (1.4 - 6.5 /CUMM) 5.1 Absolute Lymphocytes (1.2 - 3.4 /CUMM) 1.3 Absolute Monocytes (0.10 - 0.60 /CUMM) 0.5 Absolute Eosinophils (0.0 - 0.7 /CUMM) 0.1 Absolute Basophils (0.0 - 0.2 /CUMM) 0 05/19 05/19 05/19 05/18 1240 0415 0100 2225 Blood Gas Bicarbonate Actual (22 - 26 MEQ/L) 14 L Mixed VBG pH (7.31 - 7.41 PH) 7.20 L Mixed VBG pCO2 (41 - 51 TORR) 35 L Mixed VBG O2 Saturation (35 - 45 TORR) 39 P-50 (Temp Corrected) Y Carboxyhemoglobin (1.5 - 5.0 %) 1 L O2 Concentration % RA Temperature (97.0 - 100.0 FARH) 98.1 Chemistry Sodium (137 - 145 mmol/L) 132 L 132 L Potassium (3.5 - 5.1 mmol/L) 2.9 *L 2.8 *L Chloride (98 - 107 mmol/L) 104 104 Carbon Dioxide (22 - 30 mmol/L) 14 L 15 L Anion Gap (5 - 16) 13 13 BUN (9 - 20 mg/dL) 86 H 91 H Creatinine (0.7 - 1.2 mg/dL) 7.9 *H 8.8 *H Estimated GFR (>60 ml/min) 7 L 6 L Glucose (65 - 99 mg/dL) 151 H 116 H Lactic Acid (0.7 - 2.1 mmol/L) 1.0 Calcium (8.4 - 10.2 mg/dL) 5.7 *L 5.7 *L Phosphorus (2.5 - 4.5 mg/dL) 7.7 H 8.7 H Magnesium (1.6 - 2.3 mg/dL) 1.8 2.1 Total Bilirubin (0.2 - 1.3 mg/dL) 0.3 0.5 AST (17 - 59 U/L) 18 17 ALT (21 - 72 U/L) 23 21 Albumin (3.5 - 5.0 g/dL) 2.4 L 2.6 L Hematology CBC w Diff NO MAN DIFF REQ WBC (4.8 - 10.8 /CUMM) 9.4 RBC (4.70 - 6.10 /CUMM) 3.27 L Hgb (14.0 - 18.0 G/DL) 10.4 L Hct (42 - 52 %) 30.1 L MCV (80.0 - 94.0 FL) 92.4 MCH (27.0 - 31.0 PG) 32.0 H MCHC (33.0 - 37.0 G/DL) 34.6 RDW (11.5 - 14.5 %) 14.8 H Plt Count (130 - 400 /CUMM) 97 L MPV (7.4 - 10.4 FL) 7.8 Gran % (42.2 - 75.2 %) 63.1 Lymphocytes % (20.5 - 51.1 %) 28.2 Monocytes % (1.7 - 9.3 %) 6.2 Eosinophils % (0 - 5 %) 2.2 Basophils % (0.0 - 2.0 %) 0.3 Absolute Granulocytes (1.4 - 6.5 /CUMM) 5.9 Absolute Lymphocytes (1.2 - 3.4 /CUMM) 2.7 Absolute Monocytes (0.10 - 0.60 /CUMM) 0.6 Absolute Eosinophils (0.0 - 0.7 /CUMM) 0.2 Absolute Basophils (0.0 - 0.2 /CUMM) 0 Miscellaneous Phlebotomy Draw Site [facility] 05/18 1205 1153 1139 Chemistry Sodium (137 - 145 mmol/L) 128 L Potassium (3.5 - 5.1 mmol/L) 3.0 L Chloride (98 - 107 mmol/L) 102 Carbon Dioxide (22 - 30 mmol/L) 11 L Anion Gap (5 - 16) 15 BUN (9 - 20 mg/dL) 95 H Creatinine (0.7 - 1.2 mg/dL) 9.2 *H Estimated GFR (>60 ml/min) 6 L Glucose (65 - 99 mg/dL) 140 H Calcium (8.4 - 10.2 mg/dL) 5.9 *L Phosphorus (2.5 - 4.5 mg/dL) 9.5 H Magnesium (1.6 - 2.3 mg/dL) 1.9 Total Bilirubin (0.2 - 1.3 mg/dL) 0.6 AST (17 - 59 U/L) 17 ALT (21 - 72 U/L) 18 L Albumin (3.5 - 5.0 g/dL) 2.8 L Coagulation PT Cancelled INR Cancelled Miscellaneous Ref Lab Test Result Pending Serology Hep Bs Antibody Cancelled 05/18 05/18 05/18 05/18 1126 1126 1029 UNK Chemistry Sodium Cancelled Potassium Cancelled Chloride Cancelled Carbon Dioxide Cancelled Anion Gap Cancelled BUN Cancelled Creatinine Cancelled Glucose Cancelled Calcium Cancelled Phosphorus Cancelled Magnesium Cancelled Total Bilirubin Cancelled AST Cancelled ALT Cancelled Troponin I Cancelled Albumin Cancelled Urines Urine Color (YEL,AMB,STR) Cancelled BLDY H Urine Clarity (CLEAR) Cancelled CLDY H Urine pH (5.0 - 8.0) Cancelled 5.5 Ur Specific [place] (1.001 - 1.035) Cancelled 1.020 Urine Protein (NEG,<30 MG/DL) Cancelled >=300 H Urine Ketones (NEG) Cancelled TRACE H Urine Nitrite (NEG) Cancelled POS H Urine Bilirubin (NEG) Cancelled NEG@ICTO Urine Urobilinogen (0.1 - 1.0 EU/dl) Cancelled 1.0 Ur Leukocyte Esterase (NEG) Cancelled LARGE H Ur Microscopic Cancelled SEDIMENT EXAMINED Urine RBC (0 - 5 /HPF) PACKD H Urine WBC (0 - 2 /HPF) PACKD H Urine Bacteria (NEG/NONE) PACKD H Urine Hemoglobin (NEG) Cancelled LARGE H Urine Osmolality Cancelled Urine Glucose (N MG/DL) Cancelled NEG 05/18 05/18 0738 0705 Chemistry Sodium (137 - 145 mmol/L) 128 L Potassium (3.5 - 5.1 mmol/L) 3.3 L Chloride (98 - 107 mmol/L) 103 Carbon Dioxide (22 - 30 mmol/L) 8 *L Anion Gap (5 - 16) 17 H BUN (9 - 20 mg/dL) 95 H Creatinine (0.7 - 1.2 mg/dL) 9.5 *H Estimated GFR (>60 ml/min) 6 L BUN/Creatinine Ratio (7 - 25 %) 10.0 Glucose (65 - 99 mg/dL) 123 H Serum Osmolality (285 - 295 MOSM/KG) 309 H Calcium (8.4 - 10.2 mg/dL) 6.3 L Total Bilirubin (0.2 - 1.3 mg/dL) 0.6 AST (17 - 59 U/L) 19 ALT (21 - 72 U/L) 17 L Alkaline Phosphatase (< 127 U/L) 104 Creatine Kinase (55 - 170 U/L) 107 Troponin I (<0.11 ng/ml) < 0.01 Total Protein (6.3 - 8.2 g/dL) 8.6 H Albumin (3.5 - 5.0 g/dL) 3.4 L Globulin (1.9 - 4.2 gm/dL) 5.2 H Albumin/Globulin Ratio (1.1 - 2.2 %) 0.7 L Coagulation APTT (25 - 37 SEC) 56 H Hematology CBC w Diff NO MAN DIFF REQ WBC (4.8 - 10.8 /CUMM) 12.9 H RBC (4.70 - 6.10 /CUMM) 3.79 L Hgb (14.0 - 18.0 G/DL) 12.1 L Hct (42 - 52 %) 34.4 L MCV (80.0 - 94.0 FL) 91.0 MCH (27.0 - 31.0 PG) 32.1 H MCHC (33.0 - 37.0 G/DL) 35.3 RDW (11.5 - 14.5 %) 14.7 H Plt Count (130 - 400 /CUMM) 126 L MPV (7.4 - 10.4 FL) 8.2 Gran % (42.2 - 75.2 %) 71.7 Lymphocytes % (20.5 - 51.1 %) 20.2 L Monocytes % (1.7 - 9.3 %) 6.6 Eosinophils % (0 - 5 %) 1.4 Basophils % (0.0 - 2.0 %) 0.1 Absolute Granulocytes (1.4 - 6.5 /CUMM) 9.3 H Absolute Lymphocytes (1.2 - 3.4 /CUMM) 2.6 Absolute Monocytes (0.10 - 0.60 /CUMM) 0.9 H Absolute Eosinophils (0.0 - 0.7 /CUMM) 0.2 Absolute Basophils (0.0 - 0.2 /CUMM) 0 Serology Hep Bs Antigen (NONREACTIVE) NONREACTIVE Hep Bs Antibody (NONREACTIVE) NONREACTIVE Urines Ur Random Creatinine Cancelled Ur Random Sodium Cancelled Ur Random Potassium Cancelled Fraction Sodium Excret Cancelled
--- NOTE | 2018-05-20 11:10 | PN- Infect Dx ---
Subjective Subjective: Afebrile. He feels overall improved with increased strength in his right lower extremity. He continues to complain of a cough, which is productive of yellow sputum, though he states he has had this, with increasing shortness of breath, for several months. He does not report any chest pain. Objective Last 24 Hrs of Vital Signs/I&O Vital Signs Date Time Temp Pulse Resp B/P B/P Pulse O2 O2 Flow FiO2 Mean Ox Delivery Rate 05/20 0000 98.1 102 28 120/62 92 Room Air Room Air 05/19 1600 96.9 82 20 102/64 95 Room Air 05/19 1600 95 Room Air 05/19 1200 98 Room Air Intake & Output 05/20 1600 05/20 0800 05/20 0000 Intake Total 1308 2054 Output Total 1700 1600 Balance -392 454 Intake, IV 1108 1654 Intake, Oral 200 400 Number 2 Bowel Movements Output, Urine 1700 1600 Physical Exam Other Physical Findings: He appears comfortable in no acute distress Lungs scattered rhonchi bilaterally Heart regular rhythm without murmur Abdomen is soft, nontender with positive bowel sounds Back no CVA tenderness Mcgregor catheter remains in place Results Last 24 Hours of Lab Results: Laboratory Tests 05/20 05/19 05/19 0450 2024 190 Chemistry Sodium (137 - 145 mmol/L) 136 L 132 L Cancelled Potassium (3.5 - 5.1 mmol/L) 2.9 *L 2.9 *L Cancelled Chloride (98 - 107 mmol/L) 106 105 Cancelled Carbon Dioxide (22 - 30 mmol/L) 17 L 16 L Cancelled Anion Gap (5 - 16) 13 11 Cancelled BUN (9 - 20 mg/dL) 80 H 79 H Cancelled Creatinine (0.7 - 1.2 mg/dL) 7.2 *H 7.0 *H Cancelled Estimated GFR (>60 ml/min) 8 L 8 L Glucose (65 - 99 mg/dL) 126 H 131 H Cancelled Calcium (8.4 - 10.2 mg/dL) 5.4 *L 5.3 *L Cancelled Phosphorus (2.5 - 4.5 mg/dL) 5.8 H 6.3 H Cancelled Magnesium (1.6 - 2.3 mg/dL) 1.7 1.7 Cancelled Total Bilirubin (0.2 - 1.3 mg/dL) 0.4 0.4 Cancelled AST (17 - 59 U/L) 26 22 Cancelled ALT (21 - 72 U/L) 21 22 Cancelled Albumin (3.5 - 5.0 g/dL) 2.3 L 2.4 L Cancelled 25-OH Vitamin D Total (30 - 100 ng/ml) 5.6 L PTH Intact (18.4 - 80.1 pg/ML) 485.7 H Hematology CBC w Diff NO MAN DIFF REQ WBC (4.8 - 10.8 /CUMM) 7.1 RBC (4.70 - 6.10 /CUMM) 3.00 L Hgb (14.0 - 18.0 G/DL) 9.7 L Hct (42 - 52 %) 27.8 L MCV (80.0 - 94.0 FL) 92.6 MCH (27.0 - 31.0 PG) 32.5 H MCHC (33.0 - 37.0 G/DL) 35.1 RDW (11.5 - 14.5 %) 15.0 H Plt Count (130 - 400 /CUMM) 93 L MPV (7.4 - 10.4 FL) 7.3 L Gran % (42.2 - 75.2 %) 71.7 Lymphocytes % (20.5 - 51.1 %) 18.3 L Monocytes % (1.7 - 9.3 %) 7.6 Eosinophils % (0 - 5 %) 2.1 Basophils % (0.0 - 2.0 %) 0.3 Absolute Granulocytes (1.4 - 6.5 /CUMM) 5.1 Absolute Lymphocytes (1.2 - 3.4 /CUMM) 1.3 Absolute Monocytes (0.10 - 0.60 /CUMM) 0.5 Absolute Eosinophils (0.0 - 0.7 /CUMM) 0.1 Absolute Basophils (0.0 - 0.2 /CUMM) 0 05/19 1240 Chemistry Sodium (137 - 145 mmol/L) 132 L Potassium (3.5 - 5.1 mmol/L) 2.9 *L Chloride (98 - 107 mmol/L) 104 Carbon Dioxide (22 - 30 mmol/L) 14 L Anion Gap (5 - 16) 13 BUN (9 - 20 mg/dL) 86 H Creatinine (0.7 - 1.2 mg/dL) 7.9 *H Estimated GFR (>60 ml/min) 7 L Glucose (65 - 99 mg/dL) 151 H Calcium (8.4 - 10.2 mg/dL) 5.7 *L Phosphorus (2.5 - 4.5 mg/dL) 7.7 H Magnesium (1.6 - 2.3 mg/dL) 1.8 Total Bilirubin (0.2 - 1.3 mg/dL) 0.3 AST (17 - 59 U/L) 18 ALT (21 - 72 U/L) 23 Albumin (3.5 - 5.0 g/dL) 2.4 L Last 24 Hours of Attila Results: Blood cultures 2 May 18 negative Urine culture May 18 greater than 100,000 colonies of gram-negative rods Sputum culture May 20 pending Assessment/Plan ID Impression: Stable, with his temperatures and white blood cell count remaining normal, off antibiotics, but with a persistent cough, which is productive, and mild dyspnea, with a slight decrease in his O2 sats (though he remains over 90% on room air), raising concern for pneumonia. He also has a positive urine culture but the significance of this is unclear as he catheterizes himself 3 times a day and had no urinary symptoms prior to admission. His renal failure, which remains of unclear etiology, continues to improve slowly, with no plans for dialysis at this time. Suggestion: 1. Repeat chest x-ray 2. Follow-up sputum culture 3. Further management of his acute renal failure per Nephrology 4. Continue to follow off antibiotics pending above
[2018-05-20 12:00] VITALS: BP 120/70
--- NOTE | 2018-05-20 13:50 | RADIOLOGY REPORT ---
EXAMINATION: XR PORTABLE CHEST CLINICAL INFORMATION: Cough. Possible pneumonia. Acute renal disease. COMPARISON: Chest x-ray 05/18/2018. TECHNIQUE: Portable frontal 85 degrees semiupright view of the chest was obtained. FINDINGS: The lung meneses are well-expanded bilaterally. There is slight interval increase in the interstitial markings in the lower zones bilaterally, which may be consistent with edematous changes. There are possible Demetrio B lines laterally in the right lower zone. There is no focal consolidation. The cardiac silhouette is mildly prominent. There is prominence of the central pulmonary vasculature. There are no pleural effusions. There are multiple monitor leads overlying the chest. IMPRESSION: 1. There are mildly prominent central pulmonary vessels, increased interstitial markings and mild cardiomegaly. The findings may be consistent with congestive heart failure or fluid overload in the correct clinical setting.
[2018-05-20 16:00] VITALS: BP 110/60
--- NOTE | 2018-05-20 22:09 | RADIOLOGY REPORT ---
EXAMINATION: XR PORTABLE CHEST CLINICAL INFORMATION: Desaturation. COMPARISON: Chest x-ray 05/20/2018 TECHNIQUE: Portable frontal view of the chest was obtained. 9:44 PM FINDINGS: There is hyperinflation of lungs. There is chronic increased lung markings. There is no acute abnormality of the chest. There is no pulmonary vascular congestion. There is no infiltrate or pleural effusion. The cardiac and the mediastinal contours are normal. The heart size is normal. IMPRESSION: No acute abnormality of the chest.
[2018-05-21] VITALS: BP 160/80
[2018-05-21 05:06] LABS: ABSOLUTE BASOPHIL COUNT 0 /CUMM (0.0-0.2); ABSOLUTE EOSINOPHIL COUNT 0.1 /CUMM (0.0-0.7); ABSOLUTE GRANULOCYTE CT 4.7 /CUMM (1.4-6.5); ABSOLUTE LYMPH COUNT 2.2 /CUMM (1.2-3.4); ABSOLUTE MONOCYTE COUNT 0.7 /CUMM (0.10-0.60); BASOPHIL % 0.2 % (0.0-2.0); EOSINOPHIL % 1.9 % (0-5); GRANULOCYTE % 60.4 % (42.2-75.2); HEMATOCRIT 27.6 % (42-52); MEAN CORPUSCULAR HGB 31.6 PG (27.0-31.0); MEAN PLATELET VOLUME 7.6 FL (7.4-10.4); PLATELET COUNT 85 /CUMM (130-400); RBC DISTRIBUTION WIDTH 15.6 % (11.5-14.5); RED BLOOD CELL CT 2.97 /CUMM (4.70-6.10); WHITE BLOOD CELL COUNT 7.8 /CUMM (4.8-10.8)
--- NOTE | 2018-05-21 07:09 | PN- Resident CRCU ---
Antwan Latif 05/21/18 0709: Subjective HPI/CRCU Issues: Acute on chronic kidney injury (IMPROVING) Anion gap metabolic acidosis, improving Recent mechanical fall History of UTI, neurogenic bladder on straight cath. Leukocytosis, improving Hypovolemic hyponatremia Hypokalemia and hypocalcemia Bedsores on the back History of HIV on anti-retroviral medications. History of hepatitis C s/p treated with kristi History of thrombocytopenia 24 Hour Events: Patient was started on 2 L of oxygen last night considering his decreased saturation to 90%. Patient remained afebrile. Seen and examined this morning. Patient is on 2 L of oxygen and maintaining saturation 95%. He remained tachycardic overnight. Patient is complaining of intermittent cough and not able to bring phlegm. Patient has good appetite. Patient is feeling weak and we will get the PT evaluation. In the morning at 9:30am patient had one episode of 6 beats nonsustained vtach. Objective Exam General Appearance: well developed/nourished, no apparent distress, alert, awake Head: atraumatic Neck: normal inspection, supple Respiratory: normal breath sounds, chest non-tender Cardiovascular: regular rate/rhythm Gastrointestinal: soft, non-tender Extremities: right chronic venous cahnges and right big toe and third toe. 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 Patient states that he was using the restroom when he slipped and fell down, he hurt his head against the wall, he was on the floor for few minutes after which he was able to stand up on his own. Patient has neurogenic bladder and he straight caths himself 3 times daily he noticed that his urine was of decreased amount and looks of bloody for few days. On admission his labs were significant for leukocytosis 12.9, thrombocytopenia 129, creatinine 9.5 his baseline is 2.5, hyponatremia sodium 128, hypokalemia, anion gap metabolic acidosis, lactic acid was normal, elevated BNP, urine analysis was significant for leukocytosis large leukocyte esterase and hematuria. Following the patient in ICU following problems. Acute on chronic kidney injury with metabolic acidosis: -Stage IV CKD. Base line Cr is 2.5 -Continue bicarbonate drip @ 100 mEq per hour. Patient's anion gap has been improved today it's 19. -Patient's acute on chronic kidney injury could be due to prerenal or progression of his chronic kidney injury due to HIV and hepatitis C. -Today his creatinine is 6.7 and BUN is 70 -Continue iv fluids N/S @ 75 ml/h -Follow-up nephrology recommendations. Hypokalemia: -Possibly due to low oral intake or unknown etiology. -His potassium was 3.4 today and was repleted. -We'll monitor his potassium level Hyponatremia and hypocalcemia: -Possibly patient has hypovolemic hyponatremia. Today his sodium is 135. -We will keep monitoring it patient is getting normal saline. -His corrected calcium level is 6.4 as his albumin is 2.3. -Patient will get calcium acetate 1334 milligrams 3 times a day. -Calcium acetate will also act as phosphate binder. Hyperphosphatemia: -Due to low excretion considering his acute on chronic kidney injury. -Calcium acetate will also act as phosphate binder -We will monitor his phosphate level. Today it was 4.6 Cough and sputum: -Patient is complaining of intermittent cough and he brought up yellow colored phlegm one time. -Sputum culture is showing staph areus and gram negative rods. -One dose of vancomycin 1gm and then ceftriaxone 1gm daily pending final cultures. -Chest x-ray follow-up for pneumonia. Although patient is afebrile and WBC count within normal limits. -Continue Mucinex twice a day. History of HIV: -Patient is getting 3 anti retroviral medication. -Continue abacavir 300 mg twice a day and tivicay 50mg daily. -Lamivudine dose was reduced to 50mg from 150mg considering his GFR is 6 as recommended by his physician prescribing him HIV medications. History of recurrent UTI, neurogenic bladder: -Patient was on self-catheterization 3 times a day. -Urine culture is positive with gram negatives rods. In the past he was positive urine culture with Escherichia coli, possibly chronic colonization. -Patient is afebrile and WBC count came back within normal limits. -Keeping him off antibiotics and will watch him closely for any UTI symptoms or signs of infection. History of chronic pain: -Follow-up pain pathway -Continue Dilaudid 1 mg every 4 hourly when necessary. History of thrombocytopenia: -Possibly due to medication. -Avoid any medication that can decreased platelet count or it's function. -Today it's 85 History of chronic wounds: -On the back (left buttock) and right big toe and third toe present on admission. -Applying barrier cream everyday. Diet: -Renal diet. DVT prophylaxis: Mechanical only due to thrombocytopenia CODE STATUS: Full code Problem List: 1. [id number] kidney injury Pain Ratin Pain Location: back Pain Plan: pain pathway Tomorrow's Labs & Rationales: cbc/icu bundle Plan DVT/Prophylaxis: mechanical Dexter Velasquez MD 05/21/18 1044: Objective Vital Signs & I&O Last 8 Hrs of Vitals and I&O: Intake & Output 05/21 1600 Intake Total 2540 Output Total 2670 Balance -130 Intake, IV 1400 Intake, Oral 1140 Number 1 Bowel Movements Output, Urine 2670 Current Medications: Current Medications Sig/Puma Start time Last Medication Dose Route Stop Time Status Admin Abacavir Sulfate 300 MG BID 05/18 1315 AC 05/21 PO 2027 Albuterol Sulfate 2 PUF Q4-6 PRN PRN 05/18 1315 AC INH Alprazolam 0.25 MG ONCE ONE 05/21 0915 DC 05/21 PO 05/21 0916 1008 Calcitriol 0.25 MCG Q48 05/22 0900 AC PO Calcium Acetate 1,334 MG TID 05/19 1400 AC 05/21 PO 2027 Ceftriaxone Sodium 1,000 MG DAILY 05/21 1120 AC 05/21 IV 1256 Cholecalciferol 1,000 IU DAILY 05/20 2145 AC 05/21 PO 0850 Dolutegravir Sodium 50 MG DAILY 05/21 0900 AC 05/21 PO 0849 Guaifenesin 600 MG Q12 05/21 0900 AC 05/21 PO 2028 Hydromorphone HCl 1 MG Q4P PRN 05/21 0845 AC 05/21 IV 2058 Hydromorphone HCl 0 .STK-MED ONE 05/21 0840 DC .ROUTE Lamivudine 50 MG DAILY 05/21 0900 AC 05/21 PO 0851 Magnesium Chloride 64 MG DAILY 05/20 2230 AC 05/21 PO 0849 Magnesium Oxide 0 .STK-MED ONE 05/21 1851 DC PO Magnesium Oxide 400 MG ONE ONE 05/21 1815 DC 05/21 PO 05/21 1816 1854 Magnesium Oxide 400 MG ONE ONE 05/21 1645 DC 05/21 PO 05/21 1646 1854 Nystatin 1 DEDRICK BID 05/19 1216 AC 05/21 TOP 2027 Potassium Chloride 40 MEQ ONCE ONE 05/21 1645 DC 05/21 PO 05/21 1646 1846 Potassium Chloride 40 MEQ ONCE ONE 05/21 0845 DC 05/21 PO 05/21 0846 0851 Sodium Bicarbonate 100 MEQ Q10H 05/19 1400 AC 05/21 Dextrose/Water 1,000 ML IV 1854 Sodium Chloride 1,000 ML Q10H 05/20 1230 AC 05/21 IV 1846 Vancomycin HCl 1,000 MG ONCE ONE 05/21 1130 DC 05/21 Sodium Chloride 250 ML IV 05/21 1229 1256 Attending MD Review Statement Attending Sign Off Attending Cosign Statement: I have: examined this patient, reviewed aval EMR data, personally reviewd images, discussd w/resident/PA/[employer] CLERK, discussed mgmt plan w/fidel, discussed mgmt plan w/CM, discussed mgmt plan w/pt, agreed w/resident/PA/[employer] PRESCRIPTION CLERK, amended to note. Other Findings: Impression 58 year old man * acute on chronic renal failure with reduced PO intake and borderline hypotension likely pre-renal in nature, with metabolic acidosis * hx of HIV * hx of recurrent UTI's * mild leukocytosis * s/p fall * hx of left BKA Plan Respiratory -stable, monitor ID -ID consultation appreciated -hx of HIV -panculture CVS -monitor hemodynamics Heme -cbc, coags Metabolic -nephrology consultation apprciated, holding off on HD, monitoring recovery of kidney function -monitor ins/outs -monitor electrolytes, creatinine -bicarbonate per nephrology Alimentary -diet Neuro -no acute issues TTS 35 minutes DVT prophylaxis at all times if okay with nephrology would downgrade to telemetry (tachycardia)
[2018-05-21 08:00] VITALS: BP 122/64
--- NOTE | 2018-05-21 09:06 | PN- Nephrology ---
Assessment/Plan Nephrology Assessment: Renal function slowly improving. Cause of ABDIRASHID unclear but creatinine was only in low 2s at end of February. Suggestion: Still with acidosis so would continue IV bicarbonate. No dialysis imperative as labs improving. Subjective Subjective: Patient eating, states he feels well. No other issues. Objective Vital Signs and I&Os Vital Signs Date Time Temp Pulse Resp B/P B/P Pulse O2 O2 Flow FiO2 Mean Ox Delivery Rate 05/21 0400 95 Nasal 2.0L Cannula 05/21 0000 92 Nasal 2.0L Cannula 05/21 0000 98.8 106 24 160/80 92 Nasal 2.0L Cannula 05/20 2000 Room Air 05/20 1600 Room Air 05/20 1600 98.9 92 23 110/60 94 Room Air 05/20 1200 Room Air 05/20 1200 99.3 98 24 120/70 93 Room Air Intake & Output 05/21 1600 05/21 0400 05/20 1600 05/20 0400 05/19 1600 05/19 0400 Intake Total 1443 2690 3908 2054 5029 1478 Output Total 1950 2100 3650 1600 2585 1020 Balance -507 590 518 023 3648 458 Intake, IV 1343 1490 2508 1654 4509 758 Intake, Oral 100 1200 1400 400 520 720 Number 4 1 Bowel Movements Output, Urine 1950 2100 3650 1600 2585 1020 Patient 193 lb Weight Physical Exam: NAD VS as above Lungs: rhonchi bilaterally CV: no rub Abd: nontender Exts: no edema Neuro: A&O, no asterixis Current Medications: Current Medications Sig/Puma Start time Last Medication Dose Route Stop Time Status Admin Abacavir Sulfate 300 MG BID 05/18 1315 AC 05/21 PO 0852 Albuterol Sulfate 2 PUF Q4-6 PRN PRN 05/18 131 AC INH Alprazolam 0.25 MG ONCE ONE 05/20 1315 DC 05/20 PO 05/20 1316 1321 Calcitriol 0.25 MCG Q48 05/22 09 AC PO Calcium Acetate 1,334 MG TID 05/19 1400 AC 05/21 PO 0849 Calcium Gluconate 0 .STK-MED ONE 05/20 1041 DC IV Cholecalciferol 1,000 IU DAILY 05/20 2145 AC 05/21 PO 0850 Dolutegravir Sodium 50 MG DAILY 05/21 0900 AC 05/21 PO 0849 Dolutegravir Sodium 50 MG .STK-MED ONE 05/20 1234 DC PO 05/20 1235 Dolutegravir Sodium 50 MG DAILY 05/18 1315 DC 05/20 PO 1156 Furosemide 20 MG ONCE ONE 05/20 2245 DC 05/20 IV 05/20 2246 2252 Furosemide 0 .STK-MED ONE 05/20 2239 DC .ROUTE Guaifenesin 600 MG Q12 05/21 0900 AC PO Hydromorphone HCl 1 MG Q4P PRN 05/21 0845 AC 05/21 IV 0848 Hydromorphone HCl 0 .STK-MED ONE 05/21 0840 DC .ROUTE Hydromorphone HCl 1 MG Q4P PRN 05/19 0930 DC 05/20 IV 1909 Lamivudine 50 MG DAILY 05/21 0900 AC 05/21 PO 0851 Lamivudine 50 MG .STK-MED ONE 05/20 1234 DC PO 05/20 1235 Lamivudine 50 MG DAILY 05/20 0900 DC 05/20 PO 1155 Magnesium Chloride 64 MG DAILY 05/20 2230 AC 05/21 PO 0849 Magnesium Oxide 400 MG ONE ONE 05/20 1500 DC 05/20 PO 05/20 1501 1459 Nystatin 1 DEDRICK BID 05/19 1216 AC 05/20 TOP 2008 Potassium Chloride 40 MEQ ONCE ONE 05/21 0845 DC 05/21 PO 05/21 0846 0851 Potassium Chloride 40 MEQ ONCE ONE 05/20 2245 DC 05/20 PO 05/20 2246 2252 Potassium Chloride 0 .STK-MED ONE 05/20 2238 DC PO Potassium Chloride 40 MEQ ONCE ONE 05/20 2230 CAN PO 05/20 2231 Potassium Chloride 10 MEQ Q1H 05/20 0630 DC 05/20 IV 05/20 0931 1455 Sodium Bicarbonate 100 MEQ Q10H 05/19 1400 AC 05/20 Dextrose/Water 1,000 ML IV 2252 Sodium Chloride 1,000 ML Q10H 05/20 1230 AC 05/21 IV 0431 Results Pertinent Lab Results: Laboratory Tests 05/21 05/20 05/20 0400 2140 2011 Blood Gas pH (7.35 - 7.45 PH) 7.37 pCO2 (35 - 45 TORR) 28 L pO2 (80 - 100 TORR) 70 L HCO3 (21 - 28 MEQ/L) 16 L ABG O2 Sat (Measured) (>96.0 %) 94.0 L P-50 (Temp Corrected) N Carboxyhemoglobin (1.5 - 5.0 %) 0.1 L O2 Concentration % 2L Temperature (97.0 - 100.0 FARH) 98.7 O2 Delivery Method NC Chemistry Sodium (137 - 145 mmol/L) 135 L 134 L Potassium (3.5 - 5.1 mmol/L) 3.4 L 3.2 L Chloride (98 - 107 mmol/L) 105 105 Carbon Dioxide (22 - 30 mmol/L) 19 L 19 L Anion Gap (5 - 16) 11 11 BUN (9 - 20 mg/dL) 70 H 69 H Creatinine (0.7 - 1.2 mg/dL) 6.7 *H 6.7 *H Estimated GFR (>60 ml/min) 8 L 8 L Glucose (65 - 99 mg/dL) 115 H 116 H Calcium (8.4 - 10.2 mg/dL) 6.1 L 5.7 *L Phosphorus (2.5 - 4.5 mg/dL) 4.6 H 4.2 Magnesium (1.6 - 2.3 mg/dL) 1.5 L 1.5 L Total Bilirubin (0.2 - 1.3 mg/dL) 0.6 0.4 AST (17 - 59 U/L) 28 27 ALT (21 - 72 U/L) 27 23 Albumin (3.5 - 5.0 g/dL) 2.3 L 2.3 L Hematology CBC w Diff NO MAN DIFF REQ WBC (4.8 - 10.8 /CUMM) 7.8 RBC (4.70 - 6.10 /CUMM) 2.97 L Hgb (14.0 - 18.0 G/DL) 9.4 L Hct (42 - 52 %) 27.6 L MCV (80.0 - 94.0 FL) 93.0 MCH (27.0 - 31.0 PG) 31.6 H MCHC (33.0 - 37.0 G/DL) 34.0 RDW (11.5 - 14.5 %) 15.6 H Plt Count (130 - 400 /CUMM) 85 L MPV (7.4 - 10.4 FL) 7.6 Gran % (42.2 - 75.2 %) 60.4 Lymphocytes % (20.5 - 51.1 %) 28.3 Monocytes % (1.7 - 9.3 %) 9.2 Eosinophils % (0 - 5 %) 1.9 Basophils % (0.0 - 2.0 %) 0.2 Absolute Granulocytes (1.4 - 6.5 /CUMM) 4.7 Absolute Lymphocytes (1.2 - 3.4 /CUMM) 2.2 Absolute Monocytes (0.10 - 0.60 /CUMM) 0.7 H Absolute Eosinophils (0.0 - 0.7 /CUMM) 0.1 Absolute Basophils (0.0 - 0.2 /CUMM) 0 Miscellaneous Phlebotomy Draw Site RIGHT RADIAL 05/20 05/20 05/20 1305 1200 0450 Chemistry Sodium (137 - 145 mmol/L) 133 L Cancelled 136 L Potassium (3.5 - 5.1 mmol/L) 3.6 Cancelled 2.9 *L Chloride (98 - 107 mmol/L) 106 Cancelled 106 Carbon Dioxide (22 - 30 mmol/L) 16 L Cancelled 17 L Anion Gap (5 - 16) 11 Cancelled 13 BUN (9 - 20 mg/dL) 72 H Cancelled 80 H Creatinine (0.7 - 1.2 mg/dL) 7.0 *H Cancelled 7.2 *H Estimated GFR (>60 ml/min) 8 L 8 L Glucose (65 - 99 mg/dL) 186 H Cancelled 126 H Calcium (8.4 - 10.2 mg/dL) 5.8 *L Cancelled 5.4 *L Phosphorus (2.5 - 4.5 mg/dL) 4.2 Cancelled 5.8 H Magnesium (1.6 - 2.3 mg/dL) 1.6 Cancelled 1.7 Total Bilirubin (0.2 - 1.3 mg/dL) 0.3 Cancelled 0.4 AST (17 - 59 U/L) 26 Cancelled 26 ALT (21 - 72 U/L) 21 Cancelled 21 Albumin (3.5 - 5.0 g/dL) 2.2 L Cancelled 2.3 L 25-OH Vitamin D Total (30 - 100 ng/ml) 5.6 L PTH Intact (18.4 - 80.1 pg/ML) 485.7 H Hematology CBC w Diff NO MAN DIFF REQ WBC (4.8 - 10.8 /CUMM) 7.1 RBC (4.70 - 6.10 /CUMM) 3.00 L Hgb (14.0 - 18.0 G/DL) 9.7 L Hct (42 - 52 %) 27.8 L MCV (80.0 - 94.0 FL) 92.6 MCH (27.0 - 31.0 PG) 32.5 H MCHC (33.0 - 37.0 G/DL) 35.1 RDW (11.5 - 14.5 %) 15.0 H Plt Count (130 - 400 /CUMM) 93 L MPV (7.4 - 10.4 FL) 7.3 L Gran % (42.2 - 75.2 %) 71.7 Lymphocytes % (20.5 - 51.1 %) 18.3 L Monocytes % (1.7 - 9.3 %) 7.6 Eosinophils % (0 - 5 %) 2.1 Basophils % (0.0 - 2.0 %) 0.3 Absolute Granulocytes (1.4 - 6.5 /CUMM) 5.1 Absolute Lymphocytes (1.2 - 3.4 /CUMM) 1.3 Absolute Monocytes (0.10 - 0.60 /CUMM) 0.5 Absolute Eosinophils (0.0 - 0.7 /CUMM) 0.1 Absolute Basophils (0.0 - 0.2 /CUMM) 0 05/19 1900 1240 Chemistry Sodium (137 - 145 mmol/L) 132 L Cancelled 132 L Potassium (3.5 - 5.1 mmol/L) 2.9 *L Cancelled 2.9 *L Chloride (98 - 107 mmol/L) 105 Cancelled 104 Carbon Dioxide (22 - 30 mmol/L) 16 L Cancelled 14 L Anion Gap (5 - 16) 11 Cancelled 13 BUN (9 - 20 mg/dL) 79 H Cancelled 86 H Creatinine (0.7 - 1.2 mg/dL) 7.0 *H Cancelled 7.9 *H Estimated GFR (>60 ml/min) 8 L 7 L Glucose (65 - 99 mg/dL) 131 H Cancelled 151 H Calcium (8.4 - 10.2 mg/dL) 5.3 *L Cancelled 5.7 *L Phosphorus (2.5 - 4.5 mg/dL) 6.3 H Cancelled 7.7 H Magnesium (1.6 - 2.3 mg/dL) 1.7 Cancelled 1.8 Total Bilirubin (0.2 - 1.3 mg/dL) 0.4 Cancelled 0.3 AST (17 - 59 U/L) 22 Cancelled 18 ALT (21 - 72 U/L) 22 Cancelled 23 Albumin (3.5 - 5.0 g/dL) 2.4 L Cancelled 2.4 L 05/19 05/19 05/18 05/18 0415 0100 2225 1945 Blood Gas Bicarbonate Actual (22 - 26 MEQ/L) 14 L Mixed VBG pH (7.31 - 7.41 PH) 7.20 L Mixed VBG pCO2 (41 - 51 TORR) 35 L Mixed VBG O2 Saturation (35 - 45 TORR) 39 P-50 (Temp Corrected) Y Carboxyhemoglobin (1.5 - 5.0 %) 1 L O2 Concentration % RA Temperature (97.0 - 100.0 FARH) 98.1 Chemistry Sodium (137 - 145 mmol/L) 132 L 128 L Potassium (3.5 - 5.1 mmol/L) 2.8 *L 3.0 L Chloride (98 - 107 mmol/L) 104 102 Carbon Dioxide (22 - 30 mmol/L) 15 L 11 L Anion Gap (5 - 16) 13 15 BUN (9 - 20 mg/dL) 91 H 95 H Creatinine (0.7 - 1.2 mg/dL) 8.8 *H 9.2 *H Estimated GFR (>60 ml/min) 6 L 6 L Glucose (65 - 99 mg/dL) 116 H 140 H Lactic Acid (0.7 - 2.1 mmol/L) 1.0 Calcium (8.4 - 10.2 mg/dL) 5.7 *L 5.9 *L Phosphorus (2.5 - 4.5 mg/dL) 8.7 H 9.5 H Magnesium (1.6 - 2.3 mg/dL) 2.1 1.9 Total Bilirubin (0.2 - 1.3 mg/dL) 0.5 0.6 AST (17 - 59 U/L) 17 17 ALT (21 - 72 U/L) 21 18 L Albumin (3.5 - 5.0 g/dL) 2.6 L 2.8 L Hematology CBC w Diff NO MAN DIFF REQ WBC (4.8 - 10.8 /CUMM) 9.4 RBC (4.70 - 6.10 /CUMM) 3.27 L Hgb (14.0 - 18.0 G/DL) 10.4 L Hct (42 - 52 %) 30.1 L MCV (80.0 - 94.0 FL) 92.4 MCH (27.0 - 31.0 PG) 32.0 H MCHC (33.0 - 37.0 G/DL) 34.6 RDW (11.5 - 14.5 %) 14.8 H Plt Count (130 - 400 /CUMM) 97 L MPV (7.4 - 10.4 FL) 7.8 Gran % (42.2 - 75.2 %) 63.1 Lymphocytes % (20.5 - 51.1 %) 28.2 Monocytes % (1.7 - 9.3 %) 6.2 Eosinophils % (0 - 5 %) 2.2 Basophils % (0.0 - 2.0 %) 0.3 Absolute Granulocytes (1.4 - 6.5 /CUMM) 5.9 Absolute Lymphocytes (1.2 - 3.4 /CUMM) 2.7 Absolute Monocytes (0.10 - 0.60 /CUMM) 0.6 Absolute Eosinophils (0.0 - 0.7 /CUMM) 0.2 Absolute Basophils (0.0 - 0.2 /CUMM) 0 Miscellaneous Phlebotomy Draw Site PIVO 05/18 05/18 05/18 05/18 05/18 1205 1153 1139 1126 1126 Chemistry Troponin I Cancelled Coagulation PT Cancelled INR Cancelled Miscellaneous Ref Lab Test Result Pending Serology Hep Bs Antibody Cancelled Urines Urine Color Cancelled Urine Clarity Cancelled Urine pH Cancelled Ur Specific [place] Cancelled Urine Protein Cancelled Urine Ketones Cancelled Urine Nitrite Cancelled Urine Bilirubin Cancelled Urine Urobilinogen Cancelled Ur Leukocyte Esterase Cancelled Ur Microscopic Cancelled Urine Hemoglobin Cancelled Urine Osmolality Cancelled Urine Glucose Cancelled 05/18 05/18 1029 UNK Chemistry Sodium Cancelled Potassium Cancelled Chloride Cancelled Carbon Dioxide Cancelled Anion Gap Cancelled BUN Cancelled Creatinine Cancelled Glucose Cancelled Calcium Cancelled Phosphorus Cancelled Magnesium Cancelled Total Bilirubin Cancelled AST Cancelled ALT Cancelled Albumin Cancelled Urines Urine Color (YEL,AMB,STR) BLDY H Urine Clarity (CLEAR) CLDY H Urine pH (5.0 - 8.0) 5.5 Ur Specific [place] (1.001 - 1.035) 1.020 Urine Protein (NEG,<30 MG/DL) >=300 H Urine Ketones (NEG) TRACE H Urine Nitrite (NEG) POS H Urine Bilirubin (NEG) NEG@ICTO Urine Urobilinogen (0.1 - 1.0 EU/dl) 1.0 Ur Leukocyte Esterase (NEG) LARGE H Ur Microscopic SEDIMENT EXAMINED Urine RBC (0 - 5 /HPF) PACKD H Urine WBC (0 - 2 /HPF) PACKD H Urine Bacteria (NEG/NONE) PACKD H Urine Hemoglobin (NEG) LARGE H Urine Glucose (N MG/DL) NEG
--- NOTE | 2018-05-21 09:17 | Transfer of Care Summary ---
Hospital Course Course Hospital Course: Reason for ICU admission: Patient presented with acute on chronic kidney injury possible to to prerenal etiology or chronically worsening kidney function due to history of HIV and hepatitis C. Patient was kept in ICU as he presented with borderline hypertension and there was a possibility if patient needs central catheter placement for his hypotension and dialysis. 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 Patient states that he was using the restroom when he slipped and fell down, he hurt his head against the wall, he was on the floor for few minutes after which he was able to stand up on his own. Patient has neurogenic bladder and he straight caths himself 3 times daily he noticed that his urine was of decreased amount and looks of bloody for few days. Interval events in ICU: Patient is being treated for acute on chronic kidney injury with metabolic acidosis. Patient is being treated conservatively on IV fluids and watching patient's urine output and kidney function closely. Giving patient time to avoid dialysis, as per nephrology patient's kidneys are shrunken or imaging study so if he goes for dialysis he will be permanently on dialysis. Patient is on bicarbonate drip and we are closely monitoring his bicarbonate daily. Patient's kidney function is slowly improving and his acidosis is also slowly improving. Patient is getting normal saline at the rate of 75 mL per hour. Patient has good shoulder output. His hypokalemia is improving as we are repleting his potassium. Patient's hyperphosphatemia and hypokalemia is also improving. Calcium acetate is being used as phosphate binder. Patient remained hemodynamically stable. He is complaining of cough and not able to bring any phlegm. One time he was able to bring phlegm that was sent for sputum culture. His sputum culture is growing staph aureus and gram-negative rods. Although patient is afebrile and his WBC count is within normal limits. ID recommendations were followed and we started him on one dose of vancomycin 1 g. We will continue ceftriaxone 1 g daily pending final sputum culture results. Possibly patient has chronic colonization and not being treated for UTI. Keeping his Mcgregor's catheter to monitor urine output as patient has history of neurogenic bladder on self-catheterization. He had one episode of nonsustained 6 beats V. tach yesterday morning. His magnesium and potassium is being repleted. Cardiology consult was placed as patient is still sinus tachycardia. His bicarbonate drip was discontinued today as his bicarbonate level is 22 today. Mechanical ventilation: Never been intubated. NIPPV: Never used BiPAP/CPAP Antibiotics Plan: Patient received one dose of vancomycin and we are continuing ceftriaxone 1 g daily pending final sputum cultures. Catheters/Lines Plan: Continuing Mcgregor's catheter to monitor urine output as patient has history of neurogenic bladder on self-catheterization. Things to be followed up on the floor: -Follow-up final sputum cultures. -Follow-up ID for antibiotic recommendations. -Follow-up with nephrology if there is any decision of dialysis although patient 's kidney function is improving slowly. -Follow cardiology recommendations for sinus tachycardia and one episode of V. tach. Nutrition: On renal dialysis diet. DVT prophylaxis: Mechanical only considering his thrombocytopenia. CODE STATUS: Full code Assessment/Plan: Acute on chronic kidney injury with metabolic acidosis: -Stage IV CKD. Base line Cr is 2.5 -Continue bicarbonate drip @ 100 mEq per hour. Patient's anion gap has been improved today it's 22. His bicarbonate drip will be discontinued today. -Patient's acute on chronic kidney injury could be due to prerenal or progression of his chronic kidney injury due to HIV and hepatitis C. -Today his creatinine is 5.9 and BUN is 64 -Continue iv fluids N/S @ 75 ml/h -Follow-up nephrology recommendations. Hypokalemia: -Possibly due to low oral intake or unknown etiology. -His potassium was 3.3 today and was repleted. -We'll monitor his potassium level Hypomagnesemia: -Possibly in the setting of acute on chronic kidney injury. -Patient has magnesium 1.3 -Magnesium was repleted Hyponatremia and hypocalcemia: -Possibly patient has hypovolemic hyponatremia. Today his sodium is 134. -We will keep monitoring it patient is getting normal saline. -His corrected calcium level is 6.4 as his albumin is 2.2. -Patient will get calcium acetate 1334 milligrams 3 times a day. -Calcium acetate will also act as phosphate binder. -Calcium is 6.4 today. Hyperphosphatemia: -Due to low excretion considering his acute on chronic kidney injury. -Calcium acetate will also act as phosphate binder -We will monitor his phosphate level. Today it was 4.5 Sinus tachycardia and episode of V. tach: -Patient has one episode of V. tach 6 beats nonsustained. Patient remained hemodynamically stable. Possibly due to low magnesium and potassium. -We will repeat his magnesium and potassium. -Patient remained in sinus tachycardia could be multifactorial or hypoxia. -Cardiology consult was placed. Cough and sputum: -Patient is complaining of intermittent cough and he brought up yellow colored phlegm one time. -Sputum culture is showing staph areus and gram negative rods. -One dose of vancomycin 1gm and then ceftriaxone 1gm daily. Day 2 -Although patient is afebrile and WBC count within normal limits. Today his chest x-ray showed an Space opacity. -Continue Mucinex twice a day. History of HIV: -Patient is getting 3 anti retroviral medication. -Continue abacavir 300 mg twice a day and tivicay 50mg daily. -Lamivudine dose was reduced to 50mg from 150mg considering his GFR is 6 as recommended by his physician prescribing him HIV medications. History of recurrent UTI, neurogenic bladder: -Patient was on self-catheterization 3 times a day. -Urine culture is positive with gram negatives rods. In the past he was positive urine culture with Escherichia coli, possibly chronic colonization. -Patient is afebrile and WBC count came back within normal limits. -Keeping him off antibiotics and will watch him closely for any UTI symptoms or signs of infection. History of chronic pain: -Follow-up pain pathway -Continue Dilaudid 1 mg every 4 hourly when necessary. History of thrombocytopenia: -Possibly due to medication. -Avoid any medication that can decreased platelet count or it's function. -Today it's 69 History of chronic wounds: -On the back (left buttock) and right big toe and third toe present on admission. -Applying barrier cream everyday. Diet: -Renal diet. DVT prophylaxis: Mechanical only due to thrombocytopenia CODE STATUS: Full code
--- NOTE | 2018-05-21 10:39 | PN- Infect Dx ---
Subjective Subjective: Afebrile. He continues to have a cough, which is mostly nonproductive, and shortness of breath, now on 2 L of oxygen. Objective Last 24 Hrs of Vital Signs/I&O Vital Signs Date Time Temp Pulse Resp B/P B/P Pulse O2 O2 Flow FiO2 Mean Ox Delivery Rate 05/21 0400 95 Nasal 2.0L Cannula 05/21 0000 92 Nasal 2.0L Cannula 05/21 0000 98.8 106 24 160/80 92 Nasal 2.0L Cannula 05/20 2000 Room Air 05/20 1600 Room Air 05/20 1600 98.9 92 23 110/60 94 Room Air 05/20 1200 Room Air 05/20 1200 99.3 98 24 120/70 93 Room Air Intake & Output 05/21 1600 05/21 0800 05/21 0000 Intake Total 1443 2690 Output Total 1950 2100 Balance -507 590 Intake, IV 1343 1490 Intake, Oral 100 1200 Output, Urine 1950 2100 Physical Exam Other Physical Findings: He appears comfortable in no acute distress Lungs scattered rhonchi bilaterally Heart regular rhythm without murmur Abdomen is mildly distended, nontender with positive bowel sounds Back no CVA tenderness Mcgregor catheter remains in place Results Last 24 Hours of Lab Results: Laboratory Tests 05/21 Blood Gas pH (7.35 - 7.45 PH) 7.37 pCO2 (35 - 45 TORR) 28 L pO2 (80 - 100 TORR) 70 L HCO3 (21 - 28 MEQ/L) 16 L ABG O2 Sat (Measured) (>96.0 %) 94.0 L P-50 (Temp Corrected) N Carboxyhemoglobin (1.5 - 5.0 %) 0.1 L O2 Concentration % 2L Temperature (97.0 - 100.0 FARH) 98.7 O2 Delivery Method NC Chemistry Sodium (137 - 145 mmol/L) 135 L 134 L Potassium (3.5 - 5.1 mmol/L) 3.4 L 3.2 L Chloride (98 - 107 mmol/L) 105 105 Carbon Dioxide (22 - 30 mmol/L) 19 L 19 L Anion Gap (5 - 16) 11 11 BUN (9 - 20 mg/dL) 70 H 69 H Creatinine (0.7 - 1.2 mg/dL) 6.7 *H 6.7 *H Estimated GFR (>60 ml/min) 8 L 8 L Glucose (65 - 99 mg/dL) 115 H 116 H Calcium (8.4 - 10.2 mg/dL) 6.1 L 5.7 *L Phosphorus (2.5 - 4.5 mg/dL) 4.6 H 4.2 Magnesium (1.6 - 2.3 mg/dL) 1.5 L 1.5 L Total Bilirubin (0.2 - 1.3 mg/dL) 0.6 0.4 AST (17 - 59 U/L) 28 27 ALT (21 - 72 U/L) 27 23 Albumin (3.5 - 5.0 g/dL) 2.3 L 2.3 L Hematology CBC w Diff NO MAN DIFF REQ WBC (4.8 - 10.8 /CUMM) 7.8 RBC (4.70 - 6.10 /CUMM) 2.97 L Hgb (14.0 - 18.0 G/DL) 9.4 L Hct (42 - 52 %) 27.6 L MCV (80.0 - 94.0 FL) 93.0 MCH (27.0 - 31.0 PG) 31.6 H MCHC (33.0 - 37.0 G/DL) 34.0 RDW (11.5 - 14.5 %) 15.6 H Plt Count (130 - 400 /CUMM) 85 L MPV (7.4 - 10.4 FL) 7.6 Gran % (42.2 - 75.2 %) 60.4 Lymphocytes % (20.5 - 51.1 %) 28.3 Monocytes % (1.7 - 9.3 %) 9.2 Eosinophils % (0 - 5 %) 1.9 Basophils % (0.0 - 2.0 %) 0.2 Absolute Granulocytes (1.4 - 6.5 /CUMM) 4.7 Absolute Lymphocytes (1.2 - 3.4 /CUMM) 2.2 Absolute Monocytes (0.10 - 0.60 /CUMM) 0.7 H Absolute Eosinophils (0.0 - 0.7 /CUMM) 0.1 Absolute Basophils (0.0 - 0.2 /CUMM) 0 Miscellaneous Phlebotomy Draw Site RIGHT RADIAL 05/20 05/20 1305 1200 Chemistry Sodium (137 - 145 mmol/L) 133 L Cancelled Potassium (3.5 - 5.1 mmol/L) 3.6 Cancelled Chloride (98 - 107 mmol/L) 106 Cancelled Carbon Dioxide (22 - 30 mmol/L) 16 L Cancelled Anion Gap (5 - 16) 11 Cancelled BUN (9 - 20 mg/dL) 72 H Cancelled Creatinine (0.7 - 1.2 mg/dL) 7.0 *H Cancelled Estimated GFR (>60 ml/min) 8 L Glucose (65 - 99 mg/dL) 186 H Cancelled Calcium (8.4 - 10.2 mg/dL) 5.8 *L Cancelled Phosphorus (2.5 - 4.5 mg/dL) 4.2 Cancelled Magnesium (1.6 - 2.3 mg/dL) 1.6 Cancelled Total Bilirubin (0.2 - 1.3 mg/dL) 0.3 Cancelled AST (17 - 59 U/L) 26 Cancelled ALT (21 - 72 U/L) 21 Cancelled Albumin (3.5 - 5.0 g/dL) 2.2 L Cancelled Last 24 Hours of Attila Results: Blood cultures 2 May 18 negative Urine culture May 18 greater than 100,000 colonies of E. coli resistant to Ciprofloxacin and Bactrim Sputum culture May 20 positive for gram-negative rods and Staph aureus Recent Imaging Studies: Chest x-ray May 20 increased right lower lobe density Assessment/Plan ID Impression: Stable, with his temperatures and white blood cell count remaining normal, off antibiotics, but with a persistent cough, positive sputum culture for Staph aureus and gram negative rods and increased markings, particularly in the right lower lobe, on chest x-ray, raising concern for a pneumonia. His increased markings could also be secondary to fluid overload, given his renal failure, which continues to gradually improve. The positive urine culture is of unclear significance as he catheterizes himself 3 times a day and had no urinary symptoms prior to admission. Suggestion: 1. Follow-up final sputum culture 2. Would give 1 dose of Vancomycin 1 gram IV pending above 3. Begin Ceftriaxone 1 g IV every 24 hours pending above
[2018-05-21 16:00] VITALS: BP 134/70
[2018-05-21 20:30] VITALS: BP 110/60
[2018-05-22] VITALS: BP 112/70
[2018-05-22 05:54] LABS: ABSOLUTE BASOPHIL COUNT 0 /CUMM (0.0-0.2); ABSOLUTE EOSINOPHIL COUNT 0.1 /CUMM (0.0-0.7); ABSOLUTE GRANULOCYTE CT 7.3 /CUMM (1.4-6.5); ABSOLUTE LYMPH COUNT 2.1 /CUMM (1.2-3.4); ABSOLUTE MONOCYTE COUNT 0.9 /CUMM (0.10-0.60); BASOPHIL % 0 % (0.0-2.0); EOSINOPHIL % 1.4 % (0-5); GRANULOCYTE % 69.8 % (42.2-75.2); MEAN CORPUSCULAR HGB 31.8 PG (27.0-31.0); MEAN CORPUSCULAR HGB CONC 34.3 G/DL (33.0-37.0); MEAN CORPUSCULAR VOLUME 92.5 FL (80.0-94.0); MEAN PLATELET VOLUME 7.4 FL (7.4-10.4); RBC DISTRIBUTION WIDTH 15.4 % (11.5-14.5); RED BLOOD CELL CT 2.92 /CUMM (4.70-6.10); WHITE BLOOD CELL COUNT 10.5 /CUMM (4.8-10.8)
[2018-05-22 06:38] LABS: PLATELET COUNT 69 /CUMM (130-400)
--- NOTE | 2018-05-22 07:02 | PN- Resident CRCU ---
Antwan Latif 05/22/18 0701: Subjective HPI/CRCU Issues: Acute on chronic kidney injury (IMPROVING) Anion gap metabolic acidosis, improving Recent mechanical fall History of UTI, neurogenic bladder on straight cath. Leukocytosis, improving Hypovolemic hyponatremia Hypokalemia and hypocalcemia Bedsores on the back History of HIV on anti-retroviral medications. History of hepatitis C s/p treated with harvoni History of thrombocytopenia One episode of V. tach yesterday morning 24 Hour Events: Patient remained tachycardic overnight. No episodes of VT or PVC overnight. Seen and examined this morning. Patient reported cough but not able to bring any phlegm. Still on 2L of oxygen maintaining saturation 95%. Patient also reported having tiredness. He denied chest pain, palpitation, nausea, vomiting, chills, fever, abdominal pain dysuria. Patient will be transferred to telemetry if bed is available. Objective Vital Signs & I&O Last 8 Hrs of Vitals and I&O: Intake & Output 05/22 1600 05/22 0800 05/22 0000 Intake Total 1324 1763 Output Total 350 2470 Balance 974 -707 Intake, IV 1324 1243 Intake, Oral 520 Output, Urine 350 2470 Laboratory Tests 05/22 05/21 0530 1515 Chemistry Sodium (137 - 145 mmol/L) 134 L 134 L Potassium (3.5 - 5.1 mmol/L) 3.3 L 3.2 L Chloride (98 - 107 mmol/L) 104 103 Carbon Dioxide (22 - 30 mmol/L) 22 19 L Anion Gap (5 - 16) 9 12 BUN (9 - 20 mg/dL) 64 H 61 H Creatinine (0.7 - 1.2 mg/dL) 5.9 *H 6.2 *H Estimated GFR (>60 ml/min) 10 L 9 L Glucose (65 - 99 mg/dL) 122 H 186 H Calcium (8.4 - 10.2 mg/dL) 6.4 L 6.0 L Phosphorus (2.5 - 4.5 mg/dL) 4.5 3.3 Magnesium (1.6 - 2.3 mg/dL) 1.3 L 1.2 L Total Bilirubin (0.2 - 1.3 mg/dL) 0.6 0.4 AST (17 - 59 U/L) 28 31 ALT (21 - 72 U/L) 28 26 Albumin (3.5 - 5.0 g/dL) 2.2 L 2.3 L Hematology CBC w Diff NO MAN DIFF REQ WBC (4.8 - 10.8 /CUMM) 10.5 RBC (4.70 - 6.10 /CUMM) 2.92 L Hgb (14.0 - 18.0 G/DL) 9.3 L Hct (42 - 52 %) 27.0 L MCV (80.0 - 94.0 FL) 92.5 MCH (27.0 - 31.0 PG) 31.8 H MCHC (33.0 - 37.0 G/DL) 34.3 RDW (11.5 - 14.5 %) 15.4 H Plt Count (130 - 400 /CUMM) 69 L MPV (7.4 - 10.4 FL) 7.4 Gran % (42.2 - 75.2 %) 69.8 Lymphocytes % (20.5 - 51.1 %) 20.4 L Monocytes % (1.7 - 9.3 %) 8.4 Eosinophils % (0 - 5 %) 1.4 Basophils % (0.0 - 2.0 %) 0 Absolute Granulocytes (1.4 - 6.5 /CUMM) 7.3 H Absolute Lymphocytes (1.2 - 3.4 /CUMM) 2.1 Absolute Monocytes (0.10 - 0.60 /CUMM) 0.9 H Absolute Eosinophils (0.0 - 0.7 /CUMM) 0.1 Absolute Basophils (0.0 - 0.2 /CUMM) 0 Exam General Appearance: well developed/nourished, no apparent distress, alert, awake Head: atraumatic, normal appearance Neck: normal inspection, supple Respiratory: normal breath sounds, chest non-tender Cardiovascular: regular rate/rhythm Gastrointestinal: soft, non-tender Extremities: no edema, LEFT BKA, Right leg chronic venous changes and right big toe chronic wound also third toe chronic dry wound. Skin Temp/Moisture Exam: Warm/Dry Sepsis Skin Exam (color): Normal for Ethnicity Current Medications: Current Medications Sig/Puma Start time Last Medication Dose Route Stop Time Status Admin Abacavir Sulfate 300 MG BID 05/18 1315 AC 05/22 PO 0909 Albuterol Sulfate 2 PUF Q4-6 PRN PRN 05/18 1315 AC INH Calcitriol 0.25 MCG Q48 05/22 0900 AC 05/22 PO 0909 Calcium Acetate 1,334 MG TID 05/19 1400 AC 05/22 PO 1325 Ceftriaxone Sodium 1,000 MG DAILY 05/21 1120 AC 05/22 IV 0900 Cholecalciferol 1,000 IU DAILY 05/20 2145 AC 05/22 PO 0908 Dolutegravir Sodium 50 MG DAILY 05/21 0900 AC 05/22 PO 0908 Guaifenesin 600 MG Q12 05/21 0900 AC 05/22 PO 0910 Hydromorphone HCl 1 MG Q4P PRN 05/21 0845 AC 05/22 IV 1430 Lamivudine 50 MG DAILY 05/21 0900 AC 05/22 PO 0910 Magnesium Chloride 64 MG DAILY 05/20 2230 AC 05/22 PO 0911 Magnesium Oxide 400 MG 0730 05/22 0730 DC 05/22 PO 05/22 0731 0908 Magnesium Oxide 0 .STK-MED ONE 05/21 1851 DC PO Magnesium Oxide 400 MG ONE ONE 05/21 1815 DC 05/21 PO 05/21 1816 1854 Magnesium Oxide 400 MG ONE ONE 05/21 1645 DC 05/21 PO 05/21 1646 1854 Nystatin 1 DEDRICK BID 05/19 1216 AC 05/22 TOP 0910 Potassium Chloride 40 MEQ 0715 05/22 0715 DC 05/22 PO 05/22 0716 0908 Potassium Chloride 40 MEQ ONCE ONE 05/21 1645 DC 05/21 PO 05/21 1646 1846 Sodium Bicarbonate 100 MEQ Q10H 05/19 1400 DC 05/22 Dextrose/Water 1,000 ML IV 0555 Sodium Chloride 1,000 ML Q10H 05/20 1230 05/22 IV 0556 Impression/Plan Impression/Problem List Impression: 58 year old male with PMH of HIV on HAART, HCV s/p Harvoni, CKD IV, anxiety, 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 Patient states that he was using the restroom when he slipped and fell down, he hurt his head against the wall, he was on the floor for few minutes after which he was able to stand up on his own. Patient has neurogenic bladder and he straight caths himself 3 times daily he noticed that his urine was of decreased amount and looks of bloody for few days. On admission his labs were significant for leukocytosis 12.9, thrombocytopenia 129, creatinine 9.5 his baseline is 2.5, hyponatremia sodium 128, hypokalemia, anion gap metabolic acidosis, lactic acid was normal, elevated BNP, urine analysis was significant for leukocytosis large leukocyte esterase and hematuria. Following the patient in ICU following problems. Acute on chronic kidney injury with metabolic acidosis: -Stage IV CKD. Base line Cr is 2.5 -Continue bicarbonate drip @ 100 mEq per hour. Patient's anion gap has been improved today it's 22. His bicarbonate drip will be discontinued today. -Patient's acute on chronic kidney injury could be due to prerenal or progression of his chronic kidney injury due to HIV and hepatitis C. -Today his creatinine is 5.9 and BUN is 64 -Continue iv fluids N/S @ 75 ml/h -Follow-up nephrology recommendations. Hypokalemia: -Possibly due to low oral intake or unknown etiology. -His potassium was 3.3 today and was repleted. -We'll monitor his potassium level Hypomagnesemia: -Possibly in the setting of acute on chronic kidney injury. -Patient has magnesium 1.3 -Magnesium was repleted Hyponatremia and hypocalcemia: -Possibly patient has hypovolemic hyponatremia. Today his sodium is 134. -We will keep monitoring it patient is getting normal saline. -His corrected calcium level is 6.4 as his albumin is 2.2. -Patient will get calcium acetate 1334 milligrams 3 times a day. -Calcium acetate will also act as phosphate binder. -Calcium is 6.4 today. Hyperphosphatemia: -Due to low excretion considering his acute on chronic kidney injury. -Calcium acetate will also act as phosphate binder -We will monitor his phosphate level. Today it was 4.5 Sinus tachycardia and episode of V. tach: -Patient has one episode of V. tach 6 beats nonsustained. Patient remained hemodynamically stable. Possibly due to low magnesium and potassium. -We will repeat his magnesium and potassium. -Patient remained in sinus tachycardia could be multifactorial or hypoxia. -Cardiology consult was placed. Cough and sputum: -Patient is complaining of intermittent cough and he brought up yellow colored phlegm one time. -Sputum culture is showing staph areus and gram negative rods. -One dose of vancomycin 1gm and then ceftriaxone 1gm daily. Day 2 -Although patient is afebrile and WBC count within normal limits. Today his chest x-ray showed an Space opacity. -Continue Mucinex twice a day. History of HIV: -Patient is getting 3 anti retroviral medication. -Continue abacavir 300 mg twice a day and tivicay 50mg daily. -Lamivudine dose was reduced to 50mg from 150mg considering his GFR is 6 as recommended by his physician prescribing him HIV medications. History of recurrent UTI, neurogenic bladder: -Patient was on self-catheterization 3 times a day. -Urine culture is positive with gram negatives rods. In the past he was positive urine culture with Escherichia coli, possibly chronic colonization. -Patient is afebrile and WBC count came back within normal limits. -Keeping him off antibiotics and will watch him closely for any UTI symptoms or signs of infection. History of chronic pain: -Follow-up pain pathway -Continue Dilaudid 1 mg every 4 hourly when necessary. History of thrombocytopenia: -Possibly due to medication. -Avoid any medication that can decreased platelet count or it's function. -Today it's 69 History of chronic wounds: -On the back (left buttock) and right big toe and third toe present on admission. -Applying barrier cream everyday. Diet: -Renal diet. DVT prophylaxis: Mechanical only due to thrombocytopenia CODE STATUS: Full code Problem List: 1. [id number] kidney injury Pain Ratin Pain Location: none Pain Plan: pain pathway Tomorrow's Labs & Rationales: cbc/icu bundle Plan DVT/Prophylaxis: mechanical Dexter Velasquez MD 05/22/18 1057: Attending MD Review Statement Attending Sign Off Attending Cosign Statement: I have: examined this patient, [facility], personally reviewd images, discussd w/resident/PA/SETUP OPERATOR, discussed mgmt plan w/fidel, discussed mgmt plan w/CM, discussed mgmt plan w/pt, agreed w/resident/PA/SETUP OPERATOR, amended to note. Other Findings: Impression 58 year old man * new aispace opacificaiton in the right midlung/lung base - consistent with pneumonia - can be aspiration - GNR/Staph aureus in sputum * acute on chronic renal failure with reduced PO intake and borderline hypotension likely pre-renal in nature, with metabolic acidosis * hx of HIV * hx of recurrent UTI's * mild leukocytosis * s/p fall * hx of left BKA Plan Respiratory -new aispace opacificaiton in the right midlung/lung base ID -ID consultation appreciated -received vancomycin and ceftriaxone -GNR/Staph aureus in sputum, f/u cultures -hx of HIV -panculture CVS -monitor hemodynamics Heme -cbc, coags Metabolic -nephrology consultation apprciated, holding off on HD, monitoring recovery of kidney function -monitor ins/outs -monitor electrolytes, creatinine -bicarbonate per nephrology - inquire if can be discontinued Alimentary -diet Neuro -no acute issues Downgrade was held given bicarbonate drip, observation period for creatinine and new findings on CXR/respiratory cultures TTS 30 minutes DVT prophylaxis at all times Downgrade to telemetry (tachycardia)
[2018-05-22 08:00] VITALS: BP 124/70
--- NOTE | 2018-05-22 09:49 | RADIOLOGY REPORT ---
EXAMINATION: XR PORTABLE CHEST CLINICAL INFORMATION: Cough and sputum. Positive sputum culture. Presented diagnosis: Pneumonia/aspiration pneumonia COMPARISON: A 2017. TECHNIQUE: Portable frontal view of the chest was obtained. FINDINGS: New alveolar and interstitial airspace opacities are present within the right midlung and right lung base, potentially due to aspiration or early bronchopneumonia. Mild atelectasis is present in the lung bases. No pneumothorax or pleural effusion. Architectural distortion of emphysema is noted in both lungs. The cardiac and mediastinal contours are unchanged and within normal limits. Pulmonary vasculature is unremarkable. No acute osseous findings. IMPRESSION: New airspace opacification in the right midlung and right lung base which may be due to aspiration or bronchopneumonia.
[2018-05-22 11:09] VITALS: BP 116/72
--- NOTE | 2018-05-22 12:07 | Cons- Cardiology ---
General Information and HPI Consulting Request Date of Consult: 05/22/18 Requested By: Dexter Velasquez MD Reason for Consult: Tachycardia and "V. tach". Source of Information: patient, old records Exam Limitations: no limitations History of Present Illness: The patient is a 58-year-old man past medical history of HIV, hepatitis C, CKD stage IV, status post left BKA. He presented originally with fall which was mechanical. He was found to have leukocytosis, thrombocytopenia, creatinine of 9.51, his baseline is 2.5, hyponatremia, hypokalemia and urinary tract infection. He has improved. His electrolytes have been replaced. Today his BUN is 64 creatinine of 5.9, potassium of 3.3. Initial calcium was 5.7 and is now still low at 6.4. Magnesium is still low at 1.3. Patient has had predominantly sinus tachycardia as a rhythm. However he had 2 episodes of brief tachycardia, one on May 20 at 1:40 AM and the second one on May 21 at 9:30 AM. These are fairly rapid short runs of about 10 beats and to me look like supraventricular tachycardia with aberrancy. The patient is not having any cardiac symptoms. He had a normal echocardiogram earlier in his course. Allergies/Medications Allergies: Coded Allergies: erythromycin base (UNKNOWN 12/02/16) Home Med List: Abacavir Sulfate (Abacavir) 300 MG TABLET 1 TAB PO DAILY ANTIVIRAL (Reported) Albuterol Sulfate (Proair Hfa) 90 MCG HFA.AER.AD 2 PUF INH Q4-6 PRN PRN ASTHMA (Reported) Alprazolam (Xanax) 0.5 MG TABLET 1 TAB PO Q6P PRN ANXIETY/SLEEP (Reported) Amoxicillin 500 MG CAPSULE 500 MG PO BID URINE INFECTION Calcium Carbonate/Vitamin D3 (Calcium 500 + D Tablet) (Unknown Strength) TABLET (Unknown Dose) PO DAILY SUPPLEMENT (Reported) Dextran 70/Hypromellose (Artificial Tears) 1 EACH DROPERETTE 1 GTT OS BID OCULAR (Reported) Dolutegravir Sodium (Tivicay) 50 MG TABLET 1 TAB PO DAILY HIV (Reported) Folic Acid 1 MG TABLET 1 MG PO DAILY VITAMIN DEFICIENCY Gabapentin (Neurontin) 300 MG CAPSULE 1 CAP PO BID NEUROPATHY (Reported) Lactulose 10 GRAM/15 ML SOLUTION 30 ML PO QAM ENCEPHALOPATHY (Reported) Multiple Vitamin (Multivitamins) 1 EACH TABLET 1 TAB PO DAILY SUPPLEMENT ( Reported) Oxycodone HCl 30 MG TABLET 1 TAB PO Q4-6H PRN PAIN (Reported) Oxycodone HCl (Oxycontin) 40 MG TAB.ER.12H 1 TAB PO BID CHRINIC PAIN ( Reported) Potassium Chloride 20 MEQ TAB.ER.PRT 1 TAB PO DAILY Hypokalemia Prednisolone Acetate (Omnipred) 1 % DROPS.SUSP 1 GTT OS 4 TIMES/DAY OCULAR ( Reported) Thiamine HCl (Vitamin B-1) 100 MG TABLET 100 MG PO DAILY VITAMIN DEFICIENCY Trazodone HCl 100 MG TABLET 200 MG PO QHS PRN SLEEP (Reported) Review of Systems Review of Systems: No specific complaints Past History Travel History Traveled to [place] past 21 day No Medical History Neurological: NONE EENT: NONE Cardiovascular: NONE Respiratory: asthma Gastrointestinal: NONE Hepatic: hepatitis C (s/p Tx with Whit) Renal: chronic kidney disease, neurogenic bladder Musculoskeletal: BACK ISSUES Psychiatric: anxiety Endocrine: NONE Blood Disorders: HIV Cancer(s): NONE 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 Home Who Do You Live With? self Services at Home: Nursing Primary Language: Irish Smoking Status: Current Everyday Smoker Functional Ability ADLs Independent: dressing, eating, toileting, bathing. Ambulation: independent IADLs Independent: shopping, housework, finances, food prep, telephone, transportation , medication admin. Exam & Diagnostic Data Vital Signs and I&O `Vital Signs Date Time Temp Pulse Resp B/P B/P Pulse O2 O2 Flow FiO2 Mean Ox Delivery Rate 05/22 1109 97.9 102 20 116/72 93 Nasal 3.0L Cannula 05/22 08 98 Nasal 2.0L Cannula 05/22 08 98.9 100 20 124/70 98 Nasal 2.0L Cannula 05/22 0600 Nasal 2.0L Cannula 05/22 0000 99.2 111 20 112/70 95 Nasal 2.0L Cannula 05/21 2200 95 Nasal 2.0L Cannula 05/21 2030 98.9 113 23 110/60 95 Nasal 2.0L Cannula 05/21 1600 95 Nasal 3.0L Cannula 05/21 1600 99.1 110 20 134/70 97 Nasal 3.0L Cannula Intake & Output 05/22 1600 05/22 0800 05/22 0000 05/21 1600 05/21 0800 05/21 0000 Intake Total 1324 1763 2540 1443 2690 Output Total 350 2470 2670 1950 2100 Balance 974 -707 -130 -507 590 Intake, IV 1324 1243 1400 1343 1490 Intake, Oral 520 1396 362 7811 Number 1 Bowel Movements Output, Urine 350 2470 2670 1950 2100 Physical Exam: He is in no distress HEENT exam is normal Chest is clear Heart regular rhythm, mild tachycardia, no murmurs Abdomen benign Extremities status post left BKA, right leg no edema Labs/Attila Results: Laboratory Tests 05/22 05/21 0530 1515 Chemistry Sodium (137 - 145 mmol/L) 134 L 134 L Potassium (3.5 - 5.1 mmol/L) 3.3 L 3.2 L Chloride (98 - 107 mmol/L) 104 103 Carbon Dioxide (22 - 30 mmol/L) 22 19 L Anion Gap (5 - 16) 9 12 BUN (9 - 20 mg/dL) 64 H 61 H Creatinine (0.7 - 1.2 mg/dL) 5.9 *H 6.2 *H Estimated GFR (>60 ml/min) 10 L 9 L Glucose (65 - 99 mg/dL) 122 H 186 H Calcium (8.4 - 10.2 mg/dL) 6.4 L 6.0 L Phosphorus (2.5 - 4.5 mg/dL) 4.5 3.3 Magnesium (1.6 - 2.3 mg/dL) 1.3 L 1.2 L Total Bilirubin (0.2 - 1.3 mg/dL) 0.6 0.4 AST (17 - 59 U/L) 28 31 ALT (21 - 72 U/L) 28 26 Albumin (3.5 - 5.0 g/dL) 2.2 L 2.3 L Hematology CBC w Diff NO MAN DIFF REQ WBC (4.8 - 10.8 /CUMM) 10.5 RBC (4.70 - 6.10 /CUMM) 2.92 L Hgb (14.0 - 18.0 G/DL) 9.3 L Hct (42 - 52 %) 27.0 L MCV (80.0 - 94.0 FL) 92.5 MCH (27.0 - 31.0 PG) 31.8 H MCHC (33.0 - 37.0 G/DL) 34.3 RDW (11.5 - 14.5 %) 15.4 H Plt Count (130 - 400 /CUMM) 69 L MPV (7.4 - 10.4 FL) 7.4 Gran % (42.2 - 75.2 %) 69.8 Lymphocytes % (20.5 - 51.1 %) 20.4 L Monocytes % (1.7 - 9.3 %) 8.4 Eosinophils % (0 - 5 %) 1.4 Basophils % (0.0 - 2.0 %) 0 Absolute Granulocytes (1.4 - 6.5 /CUMM) 7.3 H Absolute Lymphocytes (1.2 - 3.4 /CUMM) 2.1 Absolute Monocytes (0.10 - 0.60 /CUMM) 0.9 H Absolute Eosinophils (0.0 - 0.7 /CUMM) 0.1 Absolute Basophils (0.0 - 0.2 /CUMM) 0 05/21 Blood Gas pH (7.35 - 7.45 PH) 7.37 pCO2 (35 - 45 TORR) 28 L pO2 (80 - 100 TORR) 70 L HCO3 (21 - 28 MEQ/L) 16 L ABG O2 Sat (Measured) (>96.0 %) 94.0 L P-50 (Temp Corrected) N Carboxyhemoglobin (1.5 - 5.0 %) 0.1 L O2 Concentration % 2L Temperature (97.0 - 100.0 FARH) 98.7 O2 Delivery Method NC Chemistry Sodium (137 - 145 mmol/L) 135 L 134 L Potassium (3.5 - 5.1 mmol/L) 3.4 L 3.2 L Chloride (98 - 107 mmol/L) 105 105 Carbon Dioxide (22 - 30 mmol/L) 19 L 19 L Anion Gap (5 - 16) 11 11 BUN (9 - 20 mg/dL) 70 H 69 H Creatinine (0.7 - 1.2 mg/dL) 6.7 *H 6.7 *H Estimated GFR (>60 ml/min) 8 L 8 L Glucose (65 - 99 mg/dL) 115 H 116 H Calcium (8.4 - 10.2 mg/dL) 6.1 L 5.7 *L Phosphorus (2.5 - 4.5 mg/dL) 4.6 H 4.2 Magnesium (1.6 - 2.3 mg/dL) 1.5 L 1.5 L Total Bilirubin (0.2 - 1.3 mg/dL) 0.6 0.4 AST (17 - 59 U/L) 28 27 ALT (21 - 72 U/L) 27 23 Albumin (3.5 - 5.0 g/dL) 2.3 L 2.3 L Hematology CBC w Diff NO MAN DIFF REQ WBC (4.8 - 10.8 /CUMM) 7.8 RBC (4.70 - 6.10 /CUMM) 2.97 L Hgb (14.0 - 18.0 G/DL) 9.4 L Hct (42 - 52 %) 27.6 L MCV (80.0 - 94.0 FL) 93.0 MCH (27.0 - 31.0 PG) 31.6 H MCHC (33.0 - 37.0 G/DL) 34.0 RDW (11.5 - 14.5 %) 15.6 H Plt Count (130 - 400 /CUMM) 85 L MPV (7.4 - 10.4 FL) 7.6 Gran % (42.2 - 75.2 %) 60.4 Lymphocytes % (20.5 - 51.1 %) 28.3 Monocytes % (1.7 - 9.3 %) 9.2 Eosinophils % (0 - 5 %) 1.9 Basophils % (0.0 - 2.0 %) 0.2 Absolute Granulocytes (1.4 - 6.5 /CUMM) 4.7 Absolute Lymphocytes (1.2 - 3.4 /CUMM) 2.2 Absolute Monocytes (0.10 - 0.60 /CUMM) 0.7 H Absolute Eosinophils (0.0 - 0.7 /CUMM) 0.1 Absolute Basophils (0.0 - 0.2 /CUMM) 0 Miscellaneous Phlebotomy Draw Site RIGHT RADIAL 05/20 1305 Chemistry Sodium (137 - 145 mmol/L) 133 L Potassium (3.5 - 5.1 mmol/L) 3.6 Chloride (98 - 107 mmol/L) 106 Carbon Dioxide (22 - 30 mmol/L) 16 L Anion Gap (5 - 16) 11 BUN (9 - 20 mg/dL) 72 H Creatinine (0.7 - 1.2 mg/dL) 7.0 *H Estimated GFR (>60 ml/min) 8 L Glucose (65 - 99 mg/dL) 186 H Calcium (8.4 - 10.2 mg/dL) 5.8 *L Phosphorus (2.5 - 4.5 mg/dL) 4.2 Magnesium (1.6 - 2.3 mg/dL) 1.6 Total Bilirubin (0.2 - 1.3 mg/dL) 0.3 AST (17 - 59 U/L) 26 ALT (21 - 72 U/L) 21 Albumin (3.5 - 5.0 g/dL) 2.2 L Diagnostic Data EKG Results EKGs have all shown sinus rhythm and sinus tach Cardia with left axis deviation and otherwise unremarkable. CXR Results SERVICE DATE: 05/22/18 EXAM TYPE: RAD - XRY-PORTABLE CHEST XRAY EXAMINATION: XR PORTABLE CHEST CLINICAL INFORMATION: Cough and sputum. Positive sputum culture. Presented diagnosis: Pneumonia/aspiration pneumonia COMPARISON: A 2017. TECHNIQUE: Portable frontal view of the chest was obtained. FINDINGS: New alveolar and interstitial airspace opacities are present within the right midlung and right lung base, potentially due to aspiration or early bronchopneumonia. Mild atelectasis is present in the lung bases. No pneumothorax or pleural effusion. Architectural distortion of emphysema is noted in both lungs. The cardiac and mediastinal contours are unchanged and within normal limits. Pulmonary vasculature is unremarkable. No acute osseous findings. IMPRESSION: New airspace opacification in the right midlung and right lung base which may be due to aspiration or bronchopneumonia. DICTATED BY: Carlos Luque MD DATE/TIME DICTATED:05/22/18940 COATING MANAGER:DONY DATE/TIME TRANSCRIBED:05/22/18940 CONFIDENTIAL, DO NOT COPY WITHOUT APPROPRIATE AUTHORIZATION. <Electronically signed in Other Vendor System> SIGNED BY: Carlos Luque MD 05/22/18948 Assessment/Plan Assessment/Plan This patient has a lot of underlying complicated medical problems but no real heart disease by history. He has an unremarkable EKG and normal echocardiogram. He has been running mild sinus tachycardia in the setting of other acute problems and hypokalemia, hypocalcemia, and hypomagnesemia. He has had 2 brief tachycardic episodes, both of which look like brief supraventricular tachycardias with aberrancy and not ventricular tachycardia. He is running slight sinus tachycardia at this time on the monitor. I recommend repleting his calcium, magnesium and potassium to normal levels. I would keep him on the monitor another 24 hours. If he does not have any significant arrhythmias and his electrolytes are normal then this can be discontinued at that time. Consult Acknowledgment - Thank you for your consult request.
--- NOTE | 2018-05-22 12:19 | PN- Infect Dx ---
Subjective Subjective: Afebrile. He feels improved, though still notes a cough, which he states is looser, and mild shortness of breath. Objective Last 24 Hrs of Vital Signs/I&O Vital Signs Date Time Temp Pulse Resp B/P B/P Pulse O2 O2 Flow FiO2 Mean Ox Delivery Rate 05/22 1109 97.9 102 20 116/72 93 Nasal 3.0L Cannula 05/22 0800 98 Nasal 2.0L Cannula 05/22 0800 98.9 100 20 124/70 98 Nasal 2.0L Cannula 05/22 0600 Nasal 2.0L Cannula 05/22 0000 99.2 111 20 112/70 95 Nasal 2.0L Cannula 05/21 2200 95 Nasal 2.0L Cannula 05/21 2030 98.9 113 23 110/60 95 Nasal 2.0L Cannula 05/21 1600 95 Nasal 3.0L Cannula 05/21 1600 99.1 110 20 134/70 97 Nasal 3.0L Cannula Intake & Output 05/22 1600 05/22 0800 05/22 0000 Intake Total 1324 1763 Output Total 350 2470 Balance 974 -707 Intake, IV 1324 1243 Intake, Oral 520 Output, Urine 350 2470 Physical Exam Other Physical Findings: He appears comfortable in no acute distress Lungs crackles at the right base Heart regular rhythm with no murmur Abdomen is mildly distended, nontender with positive bowel sounds Back no CVA tenderness Mcgregor catheter remains in place Results Last 24 Hours of Lab Results: Laboratory Tests 05/22 05/21 0530 1515 Chemistry Sodium (137 - 145 mmol/L) 134 L 134 L Potassium (3.5 - 5.1 mmol/L) 3.3 L 3.2 L Chloride (98 - 107 mmol/L) 104 103 Carbon Dioxide (22 - 30 mmol/L) 22 19 L Anion Gap (5 - 16) 9 12 BUN (9 - 20 mg/dL) 64 H 61 H Creatinine (0.7 - 1.2 mg/dL) 5.9 *H 6.2 *H Estimated GFR (>60 ml/min) 10 L 9 L Glucose (65 - 99 mg/dL) 122 H 186 H Calcium (8.4 - 10.2 mg/dL) 6.4 L 6.0 L Phosphorus (2.5 - 4.5 mg/dL) 4.5 3.3 Magnesium (1.6 - 2.3 mg/dL) 1.3 L 1.2 L Total Bilirubin (0.2 - 1.3 mg/dL) 0.6 0.4 AST (17 - 59 U/L) 28 31 ALT (21 - 72 U/L) 28 26 Albumin (3.5 - 5.0 g/dL) 2.2 L 2.3 L Hematology CBC w Diff NO MAN DIFF REQ WBC (4.8 - 10.8 /CUMM) 10.5 RBC (4.70 - 6.10 /CUMM) 2.92 L Hgb (14.0 - 18.0 G/DL) 9.3 L Hct (42 - 52 %) 27.0 L MCV (80.0 - 94.0 FL) 92.5 MCH (27.0 - 31.0 PG) 31.8 H MCHC (33.0 - 37.0 G/DL) 34.3 RDW (11.5 - 14.5 %) 15.4 H Plt Count (130 - 400 /CUMM) 69 L MPV (7.4 - 10.4 FL) 7.4 Gran % (42.2 - 75.2 %) 69.8 Lymphocytes % (20.5 - 51.1 %) 20.4 L Monocytes % (1.7 - 9.3 %) 8.4 Eosinophils % (0 - 5 %) 1.4 Basophils % (0.0 - 2.0 %) 0 Absolute Granulocytes (1.4 - 6.5 /CUMM) 7.3 H Absolute Lymphocytes (1.2 - 3.4 /CUMM) 2.1 Absolute Monocytes (0.10 - 0.60 /CUMM) 0.9 H Absolute Eosinophils (0.0 - 0.7 /CUMM) 0.1 Absolute Basophils (0.0 - 0.2 /CUMM) 0 Last 24 Hours of Attila Results: Sputum culture May 20 positive for Staph aureus sensitive to Oxacillin, Klebsiella resistant to Ampicillin and Serratia sensitive to Ceftriaxone Blood cultures 2 May 18 negative Recent Imaging Studies: Chest x-ray May 22 increased opacification in the right midlung and right lung base Assessment/Plan ID Impression: Stable, with his temperatures remaining normal and with a slight increase in his white blood cell count, now on Ceftriaxone and status post 1 dose of Vancomycin yesterday, for a probable right lower lobe pneumonia, with his recent chest x- rays revealing a new right lower lobe density and with his sputum culture positive for Staph aureus (MSSA) and two gram negative rods. His respiratory status remained stable and his renal failure continues to improve. The positive urine culture is of unclear significance as he catheterizes himself 3 times a day and had no urinary symptoms prior to admission, but it will be covered by the Ceftriaxone. Suggestion: 1. Continue to closely monitor his renal function 2. Remove Mcgregor catheter when okay with Renal 3. Continue Ceftriaxone
--- NOTE | 2018-05-22 13:29 | PN- Nephrology ---
Assessment/Plan Nephrology Assessment: ABDIRASHID with slowly improving creatinine. Etiology of this unclear. CKD with baseline creatinine in low 2s. Suggestion: Continue IV fluids and daily labs. Subjective Subjective: Patient feeling well today, eating. Objective Vital Signs and I&Os Vital Signs Date Time Temp Pulse Resp B/P B/P Pulse O2 O2 Flow FiO2 Mean Ox Delivery Rate 05/22 1109 97.9 102 20 116/72 93 Nasal 3.0L Cannula 05/22 1100 97 Nasal 2.0L Cannula 05/22 0800 98 Nasal 2.0L Cannula 05/22 0800 98.9 100 20 124/70 98 Nasal 2.0L Cannula 05/22 0600 Nasal 2.0L Cannula 05/22 0000 99.2 111 20 112/70 95 Nasal 2.0L Cannula 05/21 2200 95 Nasal 2.0L Cannula 05/21 2030 98.9 113 23 110/60 95 Nasal 2.0L Cannula 05/21 1600 95 Nasal 3.0L Cannula 05/21 1600 99.1 110 20 134/70 97 Nasal 3.0L Cannula Intake & Output 05/22 1600 05/22 0400 05/21 1600 05/21 0400 05/20 1600 05/20 0400 Intake Total 1324 1763 3983 2690 3908 2054 Output Total 350 2470 4620 2100 3650 1600 Balance 973 -292 -458 590 258 454 Intake, IV 1324 1243 2743 1490 2508 1654 Intake, Oral 520 1240 1200 1400 400 Number 1 4 Bowel Movements Output, Urine 350 2470 4620 2100 3650 1600 Physical Exam: NAD VS as above Lungs: rhonchi bilaterally CV: no rub Abd: nontender Exts: no edema Neuro: A&O, no asterixis Current Medications: Current Medications Sig/Puma Start time Last Medication Dose Route Stop Time Status Admin Abacavir Sulfate 300 MG BID 05/18 1315 AC 05/22 PO 0909 Albuterol Sulfate 2 PUF Q4-6 PRN PRN 05/18 131 AC INH Calcitriol 0.25 MCG Q48 05/22 0900 AC 05/22 PO 0909 Calcium Acetate 1,334 MG TID 05/19 1400 AC 05/22 PO 1325 Ceftriaxone Sodium 1,000 MG DAILY 05/21 1120 AC 05/22 IV 0900 Cholecalciferol 1,000 IU DAILY 05/20 2145 AC 05/22 PO 0908 Dolutegravir Sodium 50 MG DAILY 05/21 0900 AC 05/22 PO 0908 Guaifenesin 600 MG Q12 05/21 0900 AC 05/22 PO 0910 Hydromorphone HCl 1 MG Q4P PRN 05/21 0845 AC 05/22 IV 1011 Lamivudine 50 MG DAILY 05/21 0900 AC 05/22 PO 0910 Magnesium Chloride 64 MG DAILY 05/20 2230 AC 05/22 PO 0911 Magnesium Oxide 400 MG 0730 05/22 0730 DC 05/22 PO 05/22 0731 0908 Magnesium Oxide 0 .STK-MED ONE 05/21 1851 DC PO Magnesium Oxide 400 MG ONE ONE 05/21 1815 DC 05/21 PO 05/21 1816 1854 Magnesium Oxide 400 MG ONE ONE 05/21 1645 DC 05/21 PO 05/21 1646 1854 Nystatin 1 DEDRICK BID 05/19 1216 AC 05/22 TOP 0910 Potassium Chloride 40 MEQ 0715 05/22 0715 DC 05/22 PO 05/22 0716 0908 Potassium Chloride 40 MEQ ONCE ONE 05/21 1645 DC 05/21 PO 05/21 1646 1846 Sodium Bicarbonate 100 MEQ Q10H 05/19 1400 DC 05/22 Dextrose/Water 1,000 ML IV 0555 Sodium Chloride 1,000 ML Q10H 05/20 1230 AC 05/22 IV 0556 Results Pertinent Lab Results: Laboratory Tests 05/22 05/21 0530 1515 Chemistry Sodium (137 - 145 mmol/L) 134 L 134 L Potassium (3.5 - 5.1 mmol/L) 3.3 L 3.2 L Chloride (98 - 107 mmol/L) 104 103 Carbon Dioxide (22 - 30 mmol/L) 22 19 L Anion Gap (5 - 16) 9 12 BUN (9 - 20 mg/dL) 64 H 61 H Creatinine (0.7 - 1.2 mg/dL) 5.9 *H 6.2 *H Estimated GFR (>60 ml/min) 10 L 9 L Glucose (65 - 99 mg/dL) 122 H 186 H Calcium (8.4 - 10.2 mg/dL) 6.4 L 6.0 L Phosphorus (2.5 - 4.5 mg/dL) 4.5 3.3 Magnesium (1.6 - 2.3 mg/dL) 1.3 L 1.2 L Total Bilirubin (0.2 - 1.3 mg/dL) 0.6 0.4 AST (17 - 59 U/L) 28 31 ALT (21 - 72 U/L) 28 26 Albumin (3.5 - 5.0 g/dL) 2.2 L 2.3 L Hematology CBC w Diff NO MAN DIFF REQ WBC (4.8 - 10.8 /CUMM) 10.5 RBC (4.70 - 6.10 /CUMM) 2.92 L Hgb (14.0 - 18.0 G/DL) 9.3 L Hct (42 - 52 %) 27.0 L MCV (80.0 - 94.0 FL) 92.5 MCH (27.0 - 31.0 PG) 31.8 H MCHC (33.0 - 37.0 G/DL) 34.3 RDW (11.5 - 14.5 %) 15.4 H Plt Count (130 - 400 /CUMM) 69 L MPV (7.4 - 10.4 FL) 7.4 Gran % (42.2 - 75.2 %) 69.8 Lymphocytes % (20.5 - 51.1 %) 20.4 L Monocytes % (1.7 - 9.3 %) 8.4 Eosinophils % (0 - 5 %) 1.4 Basophils % (0.0 - 2.0 %) 0 Absolute Granulocytes (1.4 - 6.5 /CUMM) 7.3 H Absolute Lymphocytes (1.2 - 3.4 /CUMM) 2.1 Absolute Monocytes (0.10 - 0.60 /CUMM) 0.9 H Absolute Eosinophils (0.0 - 0.7 /CUMM) 0.1 Absolute Basophils (0.0 - 0.2 /CUMM) 0 05/210 0 2011 Blood Gas pH (7.35 - 7.45 PH) 7.37 pCO2 (35 - 45 TORR) 28 L pO2 (80 - 100 TORR) 70 L HCO3 (21 - 28 MEQ/L) 16 L ABG O2 Sat (Measured) (>96.0 %) 94.0 L P-50 (Temp Corrected) N Carboxyhemoglobin (1.5 - 5.0 %) 0.1 L O2 Concentration % 2L Temperature (97.0 - 100.0 FARH) 98.7 O2 Delivery Method NC Chemistry Sodium (137 - 145 mmol/L) 135 L 134 L Potassium (3.5 - 5.1 mmol/L) 3.4 L 3.2 L Chloride (98 - 107 mmol/L) 105 105 Carbon Dioxide (22 - 30 mmol/L) 19 L 19 L Anion Gap (5 - 16) 11 11 BUN (9 - 20 mg/dL) 70 H 69 H Creatinine (0.7 - 1.2 mg/dL) 6.7 *H 6.7 *H Estimated GFR (>60 ml/min) 8 L 8 L Glucose (65 - 99 mg/dL) 115 H 116 H Calcium (8.4 - 10.2 mg/dL) 6.1 L 5.7 *L Phosphorus (2.5 - 4.5 mg/dL) 4.6 H 4.2 Magnesium (1.6 - 2.3 mg/dL) 1.5 L 1.5 L Total Bilirubin (0.2 - 1.3 mg/dL) 0.6 0.4 AST (17 - 59 U/L) 28 27 ALT (21 - 72 U/L) 27 23 Albumin (3.5 - 5.0 g/dL) 2.3 L 2.3 L Hematology CBC w Diff NO MAN DIFF REQ WBC (4.8 - 10.8 /CUMM) 7.8 RBC (4.70 - 6.10 /CUMM) 2.97 L Hgb (14.0 - 18.0 G/DL) 9.4 L Hct (42 - 52 %) 27.6 L MCV (80.0 - 94.0 FL) 93.0 MCH (27.0 - 31.0 PG) 31.6 H MCHC (33.0 - 37.0 G/DL) 34.0 RDW (11.5 - 14.5 %) 15.6 H Plt Count (130 - 400 /CUMM) 85 L MPV (7.4 - 10.4 FL) 7.6 Gran % (42.2 - 75.2 %) 60.4 Lymphocytes % (20.5 - 51.1 %) 28.3 Monocytes % (1.7 - 9.3 %) 9.2 Eosinophils % (0 - 5 %) 1.9 Basophils % (0.0 - 2.0 %) 0.2 Absolute Granulocytes (1.4 - 6.5 /CUMM) 4.7 Absolute Lymphocytes (1.2 - 3.4 /CUMM) 2.2 Absolute Monocytes (0.10 - 0.60 /CUMM) 0.7 H Absolute Eosinophils (0.0 - 0.7 /CUMM) 0.1 Absolute Basophils (0.0 - 0.2 /CUMM) 0 Miscellaneous Phlebotomy Draw Site RIGHT RADIAL 05/20 05/20 05/20 1305 1200 0450 Chemistry Sodium (137 - 145 mmol/L) 133 L Cancelled 136 L Potassium (3.5 - 5.1 mmol/L) 3.6 Cancelled 2.9 *L Chloride (98 - 107 mmol/L) 106 Cancelled 106 Carbon Dioxide (22 - 30 mmol/L) 16 L Cancelled 17 L Anion Gap (5 - 16) 11 Cancelled 13 BUN (9 - 20 mg/dL) 72 H Cancelled 80 H Creatinine (0.7 - 1.2 mg/dL) 7.0 *H Cancelled 7.2 *H Estimated GFR (>60 ml/min) 8 L 8 L Glucose (65 - 99 mg/dL) 186 H Cancelled 126 H Calcium (8.4 - 10.2 mg/dL) 5.8 *L Cancelled 5.4 *L Phosphorus (2.5 - 4.5 mg/dL) 4.2 Cancelled 5.8 H Magnesium (1.6 - 2.3 mg/dL) 1.6 Cancelled 1.7 Total Bilirubin (0.2 - 1.3 mg/dL) 0.3 Cancelled 0.4 AST (17 - 59 U/L) 26 Cancelled 26 ALT (21 - 72 U/L) 21 Cancelled 21 Albumin (3.5 - 5.0 g/dL) 2.2 L Cancelled 2.3 L 25-OH Vitamin D Total (30 - 100 ng/ml) 5.6 L PTH Intact (18.4 - 80.1 pg/ML) 485.7 H Hematology CBC w Diff NO MAN DIFF REQ WBC (4.8 - 10.8 /CUMM) 7.1 RBC (4.70 - 6.10 /CUMM) 3.00 L Hgb (14.0 - 18.0 G/DL) 9.7 L Hct (42 - 52 %) 27.8 L MCV (80.0 - 94.0 FL) 92.6 MCH (27.0 - 31.0 PG) 32.5 H MCHC (33.0 - 37.0 G/DL) 35.1 RDW (11.5 - 14.5 %) 15.0 H Plt Count (130 - 400 /CUMM) 93 L MPV (7.4 - 10.4 FL) 7.3 L Gran % (42.2 - 75.2 %) 71.7 Lymphocytes % (20.5 - 51.1 %) 18.3 L Monocytes % (1.7 - 9.3 %) 7.6 Eosinophils % (0 - 5 %) 2.1 Basophils % (0.0 - 2.0 %) 0.3 Absolute Granulocytes (1.4 - 6.5 /CUMM) 5.1 Absolute Lymphocytes (1.2 - 3.4 /CUMM) 1.3 Absolute Monocytes (0.10 - 0.60 /CUMM) 0.5 Absolute Eosinophils (0.0 - 0.7 /CUMM) 0.1 Absolute Basophils (0.0 - 0.2 /CUMM) 0 05/19 Chemistry Sodium (137 - 145 mmol/L) 132 L Cancelled Potassium (3.5 - 5.1 mmol/L) 2.9 *L Cancelled Chloride (98 - 107 mmol/L) 105 Cancelled Carbon Dioxide (22 - 30 mmol/L) 16 L Cancelled Anion Gap (5 - 16) 11 Cancelled BUN (9 - 20 mg/dL) 79 H Cancelled Creatinine (0.7 - 1.2 mg/dL) 7.0 *H Cancelled Estimated GFR (>60 ml/min) 8 L Glucose (65 - 99 mg/dL) 131 H Cancelled Calcium (8.4 - 10.2 mg/dL) 5.3 *L Cancelled Phosphorus (2.5 - 4.5 mg/dL) 6.3 H Cancelled Magnesium (1.6 - 2.3 mg/dL) 1.7 Cancelled Total Bilirubin (0.2 - 1.3 mg/dL) 0.4 Cancelled AST (17 - 59 U/L) 22 Cancelled ALT (21 - 72 U/L) 22 Cancelled Albumin (3.5 - 5.0 g/dL) 2.4 L Cancelled
[2018-05-22 14:58] VITALS: BP 112/70
[2018-05-22 22:00] VITALS: BP 108/66
[2018-05-23 06:40] VITALS: BP 119/72
[2018-05-23 07:38] LABS: ABSOLUTE BASOPHIL COUNT 0 /CUMM (0.0-0.2); ABSOLUTE EOSINOPHIL COUNT 0 /CUMM (0.0-0.7); ABSOLUTE GRANULOCYTE CT 8.5 /CUMM (1.4-6.5); ABSOLUTE LYMPH COUNT 1.7 /CUMM (1.2-3.4); ABSOLUTE MONOCYTE COUNT 0.6 /CUMM (0.10-0.60); BASOPHIL % 0.3 % (0.0-2.0); EOSINOPHIL % 0.5 % (0-5); GRANULOCYTE % 77.7 % (42.2-75.2); HEMATOCRIT 27.3 % (42-52); MEAN CORPUSCULAR HGB 32.3 PG (27.0-31.0); MEAN CORPUSCULAR HGB CONC 34.4 G/DL (33.0-37.0); MEAN CORPUSCULAR VOLUME 93.9 FL (80.0-94.0); MEAN PLATELET VOLUME 8.5 FL (7.4-10.4); RBC DISTRIBUTION WIDTH 15.6 % (11.5-14.5); WHITE BLOOD CELL COUNT 10.9 /CUMM (4.8-10.8)
[2018-05-23 08:53] LABS: PLATELET COUNT 74 /CUMM (130-400)
--- NOTE | 2018-05-23 09:15 | PN- Housestaff ---
Emir Smith 05/23/18 0915: Subjective Follow-up For: ABDIRASHID Subjective: Patient feels better today. No events overnight. No events on telemetry. Patient denies any new complaints. Review of Systems Constitutional: Reports: see HPI. Objective Last 24 Hrs of Vital Signs/I&O Vital Signs Date Time Temp Pulse Resp B/P B/P Pulse O2 O2 Flow FiO2 Mean Ox Delivery Rate 05/23 0640 98.3 109 20 119/72 98 Nasal 2.0L Cannula 05/22 2200 98.4 98 20 108/66 96 Nasal 2.0L Cannula 05/22 1600 Nasal 2.0L Cannula 05/22 1458 97.6 102 20 112/70 97 Nasal 3.0L Cannula Intake & Output 05/23 0805/23 0000 Intake Total 200 360 Output Total 1600 2000 Balance -1400 -1640 Intake, Oral 200 360 Output, Urine 1600 1999 Patient 194 lb Weight Weight Bed scale Measurement Method Physical Exam General Appearance: Alert, Oriented X3, Cooperative, No Acute Distress HEENT: Atraumatic, EOMI Neck: Supple, No JVD Cardiovascular: Regular Rate, Normal S1, Normal S2 Lungs: Bibasalar ronchi Abdomen: Normal Bowel Sounds, Soft, No Tenderness Current Medications: Current Medications Sig/Puma Start time Last Medication Dose Route Stop Time Status Admin Abacavir Sulfate 300 MG BID 05/18 1315 AC 05/23 PO 916 Albuterol Sulfate 2 PUF Q4-6 PRN PRN 05/18 131 AC INH Calcitriol 0.25 MCG Q48 05/22 09 AC 05/22 PO 0909 Calcium Acetate 1,334 MG TID 05/19 1400 AC 05/23 PO 0917 Ceftriaxone Sodium 1,000 MG DAILY 05/21 1120 AC 05/23 IV 0917 Cholecalciferol 1,000 IU DAILY 05/20 2145 AC 05/23 PO 09 Dolutegravir Sodium 50 MG DAILY 05/21 09 AC 05/23 PO 09 Guaifenesin 600 MG Q12 05/21 09 AC 05/23 PO 09 Hydromorphone HCl 0 .STK-MED ONE 05/23 0524 DC .ROUTE Hydromorphone HCl 1 MG Q4P PRN 05/21 0845 AC 05/23 IV 0936 Lamivudine 50 MG DAILY 05/21 0900 AC 05/23 PO 0917 Magnesium Chloride 64 MG DAILY 05/20 2230 AC 05/23 PO 0917 Magnesium Sulfate 1 GM Q2H 05/22 1545 DC 05/22 Dextrose/Water 100 ML IV 05/22 Nystatin 1 DEDRICK BID 05/19 1216 05/23 TOP 0918 Patient Medication 1 ED ONE ONE 05/22 1800 DC Teaching ED 05/22 1801 Sodium Bicarbonate 650 MG Q6 05/23 1200 UNVr PO Sodium Bicarbonate 625 MG BID 05/22 2100 DC PO Sodium Bicarbonate 650 MG BID 05/22 2100 DC 05/23 PO 0917 Sodium Chloride 1,000 ML Q10H 05/20 1230 AC 05/23 IV 0937 Trimethobenzamide HCl 200 MG ONCE ONE 05/23 0145 DC 05/23 IM 05/23 0146 0150 Trimethobenzamide HCl 0 .STK-MED ONE 05/23 0143 DC IM Last 24 Hrs of Lab/Attila Results Last 24 Hrs of Labs/Mics: Laboratory Tests 05/23/18 0609: Anion Gap 10, Estimated GFR 9 L, BUN/Creatinine Ratio 10.7, Magnesium 1.9, CBC w Diff NO MAN DIFF REQ, RBC 2.90 L, MCV 93.9, MCH 32.3 H, MCHC 34.4, RDW 15.6 H, MPV 8.5, Gran % 77.7 H, Lymphocytes % 15.5 L, Monocytes % 6.0, Eosinophils % 0.5, Basophils % 0.3, Absolute Granulocytes 8.5 H, Absolute Lymphocytes 1.7, Absolute Monocytes 0.6, Absolute Eosinophils 0, Absolute Basophils 0 Assessment/Plan Assessment: 58 year old male with PMH of HIV on HAART, HCV s/p Harvoni, CKD IIIA, Left foot MRSA osteomylitis s/p BKA, anxiety, and asthma presented to the ED with main complaint of mechanical fall. In the restroom when he slipped and fell down, he hurt his head against the wall, he was on the floor for few minutes after which he was able to stand up on his own. Reports having pain on his right lower extremity and numbness all over his body from his neck down to his feet. Patient has neurogenic bladder and he straight caths himself 3 times daily he noticed that his urine was of decreased amount and looks of bloody for few days. Now being treated for ABDIRASHID on CKD, anion gap metabolic acidosis, cough, positive sputum culture with urine incontinence and electrolyte imbalance. Per ID, afebrile, slight increase in WBC, on Ceftriaxone and Vancomycin. Right lower lobe pneumonia, sputum culture positive for MSSA and two gram negative rods. His respiratory status remained stable and his renal failure continues to improve. Had no urinary symptoms prior to admission. #ABDIRASHID on CKD #Cough with positive sputum culture #UTI with history of neurogenic bladder, needing straight cath 3x daily #Electrolyte imbalances resolving #Hx of fall #Hx of HIV on Abacavir and Tivicay - Continue IV fluids - Daily CBC, BEP for Kidney function - Maintain K>4.0 - Transition Cftx to oral abx (ask ID) - Possible kidney biopsy to test for ATN considering manifestation of polyuric phase (ask renal) - Continue antiviral meds - DC telemetry DVT ppx Full Code Problem List: 1. [id number] kidney injury Pain Ratin Pain Location: n/a Pain Goal: Remain pain free Pain Plan: per pathway Tomorrow's Labs & Rationales: Mg BEP CBC Taina DEL VALLE,Ian 05/23/18 1240: Attending MD Review Statement Attending Statement Attending MD Statement: examined this patient, discuss w/resident/PA/EMT B, agreed w/resident/PA/EMT B, reviewed EMR data (avail), discussed with nursing, discussed with case mgmt, amended to note Attending Assessment/Plan: Patient seen and examined. Transferred out of the ICU yesterday. Records reviewed. Logic but easily arousable. Alert and oriented 3. Denies any pain. On telemetry overnight some periods of sinus tachycardia. No arrhythmias noted. He is afebrile. Hemodynamically stable. He is on IV Rocephin as directed by the infectious disease service. He has a chest x-ray that shows a new right lower lobe density with sputum growing MSSA and to gram-negative rods( Klebsiella and Serratia). Currently denies any respiratory symptoms. Maintaining saturation on 2 L of oxygen. Urine culture is growing E. coli however he denies any urinary complaints. Recommendations: -Follow-up with the ID service regarding transition to oral antibiotic therapy and duration of therapy. -Discontinue further telemetry monitoring. -Patient's acute on chronic kidney disease may have been secondary to ATN. He was very polyuric at one point with urine output of 5-7 L earlier this week. This appears to be improving. Follow-up with the renal service regarding need for continued IV hydration. Follow-up with the renal service if he will require a biopsy to provide further information as to the etiology of the acute on chronic kidney disease.
--- NOTE | 2018-05-23 10:37 | PN- Nephrology ---
Assessment/Plan Nephrology Assessment: Good urine output but not much further drop in creatinine. Suggestion: Continue IV fluids, daily labs as hope ABDIRASHID can further resolve. Subjective Subjective: Patient feeling well, no new complaints. Objective Vital Signs and I&Os Vital Signs Date Time Temp Pulse Resp B/P B/P Pulse O2 O2 Flow FiO2 Mean Ox Delivery Rate 05/23 0640 98.3 109 20 119/72 98 Nasal 2.0L Cannula 05/22 2200 98.4 98 20 108/66 96 Nasal 2.0L Cannula 05/22 1600 Nasal 2.0L Cannula 05/22 1458 97.6 102 20 112/70 97 Nasal 3.0L Cannula 05/22 1109 97.9 102 20 116/72 93 Nasal 3.0L Cannula 05/22 1100 97 Nasal 2.0L Cannula Intake & Output 05/23 1600 05/23 0400 05/22 1600 05/22 0400 05/21 1600 05/21 0400 Intake Total 570 515 1754 1763 3983 2690 Output Total 1600 1999 350 2470 4620 2100 Balance -1400 -1640 1614 -707 -637 590 Intake, IV 1324 1243 2743 1490 Intake, Oral 200 360 846 149 7182 1200 Number 1 Bowel Movements Output, Urine 1600 1999 350 2470 4620 2100 Patient 194 lb Weight Weight Bed scale Measurement Method Physical Exam: NAD VS as above Lungs: rhonchi bilaterally CV: no rub Abd: nontender Exts: no edema Neuro: A&O, no asterixis Current Medications: Current Medications Sig/Puma Start time Last Medication Dose Route Stop Time Status Admin Abacavir Sulfate 300 MG BID 05/18 1315 AC 05/23 PO 916 Albuterol Sulfate 2 PUF Q4-6 PRN PRN 05/18 131 AC INH Calcitriol 0.25 MCG Q48 05/22 09 AC 05/22 PO 0909 Calcium Acetate 1,334 MG TID 05/19 1400 AC 05/23 PO 09 Ceftriaxone Sodium 1,000 MG DAILY 05/21 1120 AC 05/23 IV 0917 Cholecalciferol 1,000 IU DAILY 05/20 2145 AC 05/23 PO 09 Dolutegravir Sodium 50 MG DAILY 05/21 09 AC 05/23 PO 0917 Guaifenesin 600 MG Q12 05/21 09 AC 05/23 PO 09 Hydromorphone HCl 0 .STK-MED ONE 05/23 0524 DC .ROUTE Hydromorphone HCl 1 MG Q4P PRN 05/21 0845 05/23 IV 0936 Lamivudine 50 MG DAILY 05/21 0900 AC 05/23 PO 0917 Magnesium Chloride 64 MG DAILY 05/20 2230 AC 05/23 PO 0917 Magnesium Sulfate 1 GM Q2H 05/22 1545 DC 05/22 Dextrose/Water 100 ML IV 05/22 1942004 Nystatin 1 DEDRICK BID 05/19 1216 05/23 TOP 0918 Patient Medication 1 ED ONE ONE 05/22 1800 DC Teaching ED 05/22 1801 Sodium Bicarbonate 625 MG BID 05/22 2100 DC PO Sodium Bicarbonate 650 MG BID 05/22 2100 05/23 PO 0917 Sodium Chloride 1,000 ML Q10H 05/20 1230 05/23 IV 0937 Trimethobenzamide HCl 200 MG ONCE ONE 05/23 0145 DC 05/23 IM 05/23 0146 0150 Trimethobenzamide HCl 0 .STK-MED ONE 05/23 0143 DC IM Results Pertinent Lab Results: Laboratory Tests 05/23 05/22 0609 0530 Chemistry Sodium (137 - 145 mmol/L) 135 L 134 L Potassium (3.5 - 5.1 mmol/L) 3.6 3.3 L Chloride (98 - 107 mmol/L) 106 104 Carbon Dioxide (22 - 30 mmol/L) 19 L 22 Anion Gap (5 - 16) 10 9 BUN (9 - 20 mg/dL) 65 H 64 H Creatinine (0.7 - 1.2 mg/dL) 6.1 *H 5.9 *H Estimated GFR (>60 ml/min) 9 L 10 L BUN/Creatinine Ratio (7 - 25 %) 10.7 Glucose (65 - 99 mg/dL) 122 H Calcium (8.4 - 10.2 mg/dL) 6.4 L Phosphorus (2.5 - 4.5 mg/dL) 4.5 Magnesium (1.6 - 2.3 mg/dL) 1.9 1.3 L Total Bilirubin (0.2 - 1.3 mg/dL) 0.6 AST (17 - 59 U/L) 28 ALT (21 - 72 U/L) 28 Albumin (3.5 - 5.0 g/dL) 2.2 L Hematology CBC w Diff NO MAN DIFF REQ NO MAN DIFF REQ WBC (4.8 - 10.8 /CUMM) 10.9 H 10.5 RBC (4.70 - 6.10 /CUMM) 2.90 L 2.92 L Hgb (14.0 - 18.0 G/DL) 9.4 L 9.3 L Hct (42 - 52 %) 27.3 L 27.0 L MCV (80.0 - 94.0 FL) 93.9 92.5 MCH (27.0 - 31.0 PG) 32.3 H 31.8 H MCHC (33.0 - 37.0 G/DL) 34.4 34.3 RDW (11.5 - 14.5 %) 15.6 H 15.4 H Plt Count (130 - 400 /CUMM) 74 L 69 L MPV (7.4 - 10.4 FL) 8.5 7.4 Gran % (42.2 - 75.2 %) 77.7 H 69.8 Lymphocytes % (20.5 - 51.1 %) 15.5 L 20.4 L Monocytes % (1.7 - 9.3 %) 6.0 8.4 Eosinophils % (0 - 5 %) 0.5 1.4 Basophils % (0.0 - 2.0 %) 0.3 0 Absolute Granulocytes (1.4 - 6.5 /CUMM) 8.5 H 7.3 H Absolute Lymphocytes (1.2 - 3.4 /CUMM) 1.7 2.1 Absolute Monocytes (0.10 - 0.60 /CUMM) 0.6 0.9 H Absolute Eosinophils (0.0 - 0.7 /CUMM) 0 0.1 Absolute Basophils (0.0 - 0.2 /CUMM) 0 0 05/21 05/21 05/20 1515 0400 2140 Blood Gas pH (7.35 - 7.45 PH) 7.37 pCO2 (35 - 45 TORR) 28 L pO2 (80 - 100 TORR) 70 L HCO3 (21 - 28 MEQ/L) 16 L ABG O2 Sat (Measured) (>96.0 %) 94.0 L P-50 (Temp Corrected) N Carboxyhemoglobin (1.5 - 5.0 %) 0.1 L O2 Concentration % 2L Temperature (97.0 - 100.0 FARH) 98.7 O2 Delivery Method NC Chemistry Sodium (137 - 145 mmol/L) 134 L 135 L Potassium (3.5 - 5.1 mmol/L) 3.2 L 3.4 L Chloride (98 - 107 mmol/L) 103 105 Carbon Dioxide (22 - 30 mmol/L) 19 L 19 L Anion Gap (5 - 16) 12 11 BUN (9 - 20 mg/dL) 61 H 70 H Creatinine (0.7 - 1.2 mg/dL) 6.2 *H 6.7 *H Estimated GFR (>60 ml/min) 9 L 8 L Glucose (65 - 99 mg/dL) 186 H 115 H Calcium (8.4 - 10.2 mg/dL) 6.0 L 6.1 L Phosphorus (2.5 - 4.5 mg/dL) 3.3 4.6 H Magnesium (1.6 - 2.3 mg/dL) 1.2 L 1.5 L Total Bilirubin (0.2 - 1.3 mg/dL) 0.4 0.6 AST (17 - 59 U/L) 31 28 ALT (21 - 72 U/L) 26 27 Albumin (3.5 - 5.0 g/dL) 2.3 L 2.3 L Hematology CBC w Diff NO MAN DIFF REQ WBC (4.8 - 10.8 /CUMM) 7.8 RBC (4.70 - 6.10 /CUMM) 2.97 L Hgb (14.0 - 18.0 G/DL) 9.4 L Hct (42 - 52 %) 27.6 L MCV (80.0 - 94.0 FL) 93.0 MCH (27.0 - 31.0 PG) 31.6 H MCHC (33.0 - 37.0 G/DL) 34.0 RDW (11.5 - 14.5 %) 15.6 H Plt Count (130 - 400 /CUMM) 85 L MPV (7.4 - 10.4 FL) 7.6 Gran % (42.2 - 75.2 %) 60.4 Lymphocytes % (20.5 - 51.1 %) 28.3 Monocytes % (1.7 - 9.3 %) 9.2 Eosinophils % (0 - 5 %) 1.9 Basophils % (0.0 - 2.0 %) 0.2 Absolute Granulocytes (1.4 - 6.5 /CUMM) 4.7 Absolute Lymphocytes (1.2 - 3.4 /CUMM) 2.2 Absolute Monocytes (0.10 - 0.60 /CUMM) 0.7 H Absolute Eosinophils (0.0 - 0.7 /CUMM) 0.1 Absolute Basophils (0.0 - 0.2 /CUMM) 0 Miscellaneous Phlebotomy Draw Site RIGHT RADIAL 05/20 1305 1200 Chemistry Sodium (137 - 145 mmol/L) 134 L 133 L Cancelled Potassium (3.5 - 5.1 mmol/L) 3.2 L 3.6 Cancelled Chloride (98 - 107 mmol/L) 105 106 Cancelled Carbon Dioxide (22 - 30 mmol/L) 19 L 16 L Cancelled Anion Gap (5 - 16) 11 11 Cancelled BUN (9 - 20 mg/dL) 69 H 72 H Cancelled Creatinine (0.7 - 1.2 mg/dL) 6.7 *H 7.0 *H Cancelled Estimated GFR (>60 ml/min) 8 L 8 L Glucose (65 - 99 mg/dL) 116 H 186 H Cancelled Calcium (8.4 - 10.2 mg/dL) 5.7 *L 5.8 *L Cancelled Phosphorus (2.5 - 4.5 mg/dL) 4.2 4.2 Cancelled Magnesium (1.6 - 2.3 mg/dL) 1.5 L 1.6 Cancelled Total Bilirubin (0.2 - 1.3 mg/dL) 0.4 0.3 Cancelled AST (17 - 59 U/L) 27 26 Cancelled ALT (21 - 72 U/L) 23 21 Cancelled Albumin (3.5 - 5.0 g/dL) 2.3 L 2.2 L Cancelled
--- NOTE | 2018-05-23 13:06 | PN- Cardiology ---
Subjective Subjective: No complaints. Feels better overall. No fever, no events on telemetry. Objective Vital Signs and I&Os Vital Signs Date Time Temp Pulse Resp B/P B/P Pulse O2 O2 Flow FiO2 Mean Ox Delivery Rate 05/23 0800 95 Nasal 2.0L Cannula 05/23 0640 98.3 109 20 119/72 98 Nasal 2.0L Cannula 05/22 2200 98.4 98 20 108/66 96 Nasal 2.0L Cannula 05/22 1600 Nasal 2.0L Cannula 05/22 1458 97.6 102 20 112/70 97 Nasal 3.0L Cannula Intake & Output 05/23 1600 05/23 0800 05/23 0000 05/22 1600 05/22 0800 05/22 0000 Intake Total 200 557 296 8518 1763 Output Total 1600 1999 350 2470 Balance -1400 -1640 640 974 -707 Intake, IV 1324 1243 Intake, Oral 200 360 640 520 Output, Urine 1600 1999 350 2470 Patient 194 lb Weight Weight Bed scale Measurement Method Physical Exam: General Appearance: Alert, Oriented X3, Cooperative, No Acute Distress HEENT: Atraumatic, EOMI Neck: Supple, No JVD, trachea midline Cardiovascular: Regular Rate, Normal S1, Normal S2 Lungs: Bibasalar ronchi, no wheezing Abdomen: Normal Bowel Sounds, Soft, No Tenderness Extremities: No edema, good capillary refill Assessment/Plan Assessment/Plan Sinus tachycardia with some episodes of arrebancy: no recurrence since yesterday. No change in treatment from a cardiac standpoint. Maintain K+ > 4.0. Could come off telemtry today. Continue telemetry? No
[2018-05-23 15:08] VITALS: BP 104/68
[2018-05-23 21:39] VITALS: BP 128/70
[2018-05-24 06:27] VITALS: BP 109/72
[2018-05-24 08:16] LABS: ABSOLUTE BASOPHIL COUNT 0 /CUMM (0.0-0.2); ABSOLUTE EOSINOPHIL COUNT 0.2 /CUMM (0.0-0.7); ABSOLUTE GRANULOCYTE CT 4.8 /CUMM (1.4-6.5); ABSOLUTE LYMPH COUNT 1.5 /CUMM (1.2-3.4); ABSOLUTE MONOCYTE COUNT 0.5 /CUMM (0.10-0.60); BASOPHIL % 0.3 % (0.0-2.0); EOSINOPHIL % 2.6 % (0-5); GRANULOCYTE % 68.4 % (42.2-75.2); HEMATOCRIT 26.5 % (42-52); MEAN CORPUSCULAR HGB 32.5 PG (27.0-31.0); MEAN CORPUSCULAR HGB CONC 34.8 G/DL (33.0-37.0); MEAN CORPUSCULAR VOLUME 93.2 FL (80.0-94.0); MEAN PLATELET VOLUME 8.4 FL (7.4-10.4); PLATELET COUNT 72 /CUMM (130-400); RBC DISTRIBUTION WIDTH 16.2 % (11.5-14.5); RED BLOOD CELL CT 2.84 /CUMM (4.70-6.10)
--- NOTE | 2018-05-24 09:07 | PN- Housestaff ---
Mohan DEL VALLE,Que 05/24/18 0906: Subjective Follow-up For: Acute on chronic kidney disease leading to metabolic acidosis History of hepatitis C History of HIV Complaints: no complaints Tele-Events Since Last Visit: Off telemetry Subjective: Patient is seen and examined at the bedside he denied for any active complaints Review of Systems Constitutional: Denies: no symptoms. Objective Last 24 Hrs of Vital Signs/I&O Vital Signs Date Time Temp Pulse Resp B/P B/P Pulse O2 O2 Flow FiO2 Mean Ox Delivery Rate 05/24 0627 98.2 89 20 109/72 98 Nasal 4.5L Cannula 05/24 0000 98 Nasal 2.0L Cannula 05/23 2139 98.0 84 18 128/70 98 Nasal Cannula 05/23 1600 94 Nasal 2.0L Cannula 05/23 1508 97.4 86 20 104/68 96 Nasal Cannula Intake & Output 05/24 1600 05/24 0800 05/24 0000 Intake Total 1260 Output Total 1200 1850 Balance 60 -1850 Intake, IV 600 Intake, Oral 660 Number 1 Bowel Movements Output, Urine 1200 1850 Patient 86.438 kg Weight Weight Bed scale Measurement Method Physical Exam General Appearance: Alert, Oriented X3, Cooperative, No Acute Distress Cardiovascular: Normal S1, Normal S2 Lungs: Clear to Auscultation, Normal Air Movement Current Medications: Current Medications Sig/Puma Start time Last Medication Dose Route Stop Time Status Admin Abacavir Sulfate 300 MG BID 05/18 1315 AC 05/24 PO 0855 Albuterol Sulfate 2 PUF Q4-6 PRN PRN 05/18 1315 AC INH Calcitriol 0.25 MCG Q48 05/22 09 AC 05/24 PO 0854 Calcium Acetate 1,334 MG TID 05/19 1400 AC 05/24 PO 0854 Ceftriaxone Sodium 1,000 MG DAILY 05/21 1120 AC 05/24 IV 0854 Cholecalciferol 1,000 IU DAILY 05/20 2145 AC 05/24 PO 0855 Dolutegravir Sodium 50 MG DAILY 05/21 09 AC 05/24 PO 0856 Guaifenesin 600 MG Q12 05/21 09 AC 05/24 PO 0854 Hydromorphone HCl 1 MG Q4P PRN 05/21 0845 AC 05/24 IV 1029 Lamivudine 50 MG DAILY 05/21 09 AC 05/24 PO 0856 Magnesium Chloride 64 MG BID 05/23 2100 AC 05/24 PO 0854 Magnesium Oxide 400 MG BID 05/24 1003 AC PO Potassium Chloride 20 MEQ BID 05/24 1003 AC PO Potassium Chloride 40 MEQ ONCE ONE 05/23 1930 DC 05/23 PO 05/23 Sodium Bicarbonate 650 MG Q6 05/23 1200 AC 05/24 PO 0600 Sodium Chloride 1,000 ML Q10H 05/20 1230 AC 05/24 IV 0043 Last 24 Hrs of Lab/Attila Results Last 24 Hrs of Labs/Mics: Laboratory Tests 05/24/18 0720: Anion Gap 10, Estimated GFR 12 L, BUN/Creatinine Ratio 12.2, Magnesium 1.7, CBC w Diff NO MAN DIFF REQ, RBC 2.84 L, MCV 93.2, MCH 32.5 H, MCHC 34.8, RDW 16.2 H, MPV 8.4, Gran % 68.4, Lymphocytes % 22.1, Monocytes % 6.6, Eosinophils % 2.6, Basophils % 0.3, Absolute Granulocytes 4.8, Absolute Lymphocytes 1.5, Absolute Monocytes 0.5, Absolute Eosinophils 0.2, Absolute Basophils 0 Assessment/Plan Assessment: Patient is a 58-year-old man with a multiple medical problem brought to the emergency room after episode of fall at home around 30 hours before the admission, leading to hematuria. Past medical history - History of HIV,AIDS, following Dr.Lydia Morocho in [place];[facility] ;last viral load undetectable and his CD4 count approximately 500, History of hepatitis C -treated with Harvoni History of hydronephrosis with a baseline creatinine 2.5 History of neurogenic bladder because of the encephalitis in childhood; doing straight cath 3 times a day History of chronic kidney disease Status post left BKA for MRSA osteomyelitis Vital signs-temperature 97.4, pulse 86, respiratory 20, blood pressure 104/68, SPO2 96% on room air. Blood workup-WBC 7.0, hemoglobin 9.2, hematocrit 26.5, platelet count 72,000, sodium 135, potassium 3.4, chloride 109, carbon dioxide 16, anion gap 10, BUN 62 , creatinine 5.1, GFR 12, magnesium 1.7, Problem list- Aspiration pneumonia/bronchopneumonia right mid and lower lung. Acute on chronic kidney disease HIV infections Assessment and plan- * Patient is off telemetry. * We will follow attending, infectious disease, nephrology recommendations. * Patient continued to have thrombocytopenia * His creatinine is improving to 5.1 from 9.5 * We supplemented potassium and magnesium Problem List: 1. Acute on chronic kidney failure Pain Ratin Pain Location: n/a Pain Goal: Remain pain free (n/a) Pain Plan: n/a Tomorrow's Labs & Rationales: f/u CBC,BEP, DVT/Prophylaxis: mechanical, pharmacological Taina DEL VALLE,Ian 05/24/18 0917: Attending MD Review Statement Attending Statement Attending Statement: examined this patient, discuss w/resident/PA/BLASTING CAP ASSEMBLER, agreed w/resident/PA/BLASTING CAP ASSEMBLER, reviewed EMR data (avail), discussed with nursing, discussed with case mgmt, amended to note Attending Assessment/Plan: Patient seen and examined. Resting comfortably not in any acute distress. No issues overnight reported by nursing staff. Denies chest pain or shortness of breath. Denies palpitations. He is saturating 90% on 4 L of oxygen. Patient has chronic thrombocytopenia. Worsened during this admission. Platelet level is stable. No evidence of bleeding. Hemoglobin level is stable. Creatinine has improved from 6.1 yesterday to 5.1 today. Urine output was documented as over 7 L yesterday. Continue IV hydration. Ongoing management as determined by the nephrology service. Mildly hypokalemic today. Supplement potassium orally. Patient continues to have metabolic acidosis. Continue bicarbonate supplementation. Still on IV Rocephin. Follow-up with the ID service regarding transition to oral antibiotics and duration of therapy. So far he remains afebrile with no leukocytosis. Denies any respiratory complaints.
--- NOTE | 2018-05-24 09:30 | PN- Infect Dx ---
Subjective Subjective: Afebrile without complaints Objective Last 24 Hrs of Vital Signs/I&O Vital Signs Date Time Temp Pulse Resp B/P B/P Pulse O2 O2 Flow FiO2 Mean Ox Delivery Rate 05/24 0627 98.2 89 20 109/72 98 Nasal 4.5L Cannula 05/24 0000 98 Nasal 2.0L Cannula 05/23 2139 98.0 84 18 128/70 98 Nasal Cannula 05/23 1600 94 Nasal 2.0L Cannula 05/23 1508 97.4 86 20 104/68 96 Nasal Cannula Intake & Output 05/24 1600 05/24 0800 05/24 0000 Intake Total 1260 Output Total 1200 1850 Balance 60 -1850 Intake, IV 600 Intake, Oral 660 Number 1 Bowel Movements Output, Urine 1200 1850 Patient 191 lb Weight Weight Bed scale Measurement Method Physical Exam Other Physical Findings: He appears comfortable in no acute distress Lungs bibasilar crackles, right greater than left Heart regular rhythm with no murmur Abdomen is soft, nontender with positive bowel sounds Results Last 24 Hours of Lab Results: Laboratory Tests 05/24 07 Chemistry Sodium (137 - 145 mmol/L) 135 L Potassium (3.5 - 5.1 mmol/L) 3.4 L Chloride (98 - 107 mmol/L) 109 H Carbon Dioxide (22 - 30 mmol/L) 16 L Anion Gap (5 - 16) 10 BUN (9 - 20 mg/dL) 62 H Creatinine (0.7 - 1.2 mg/dL) 5.1 *H Estimated GFR (>60 ml/min) 12 L BUN/Creatinine Ratio (7 - 25 %) 12.2 Magnesium (1.6 - 2.3 mg/dL) 1.7 Hematology CBC w Diff NO MAN DIFF REQ WBC (4.8 - 10.8 /CUMM) 7.0 RBC (4.70 - 6.10 /CUMM) 2.84 L Hgb (14.0 - 18.0 G/DL) 9.2 L Hct (42 - 52 %) 26.5 L MCV (80.0 - 94.0 FL) 93.2 MCH (27.0 - 31.0 PG) 32.5 H MCHC (33.0 - 37.0 G/DL) 34.8 RDW (11.5 - 14.5 %) 16.2 H Plt Count (130 - 400 /CUMM) 72 L MPV (7.4 - 10.4 FL) 8.4 Gran % (42.2 - 75.2 %) 68.4 Lymphocytes % (20.5 - 51.1 %) 22.1 Monocytes % (1.7 - 9.3 %) 6.6 Eosinophils % (0 - 5 %) 2.6 Basophils % (0.0 - 2.0 %) 0.3 Absolute Granulocytes (1.4 - 6.5 /CUMM) 4.8 Absolute Lymphocytes (1.2 - 3.4 /CUMM) 1.5 Absolute Monocytes (0.10 - 0.60 /CUMM) 0.5 Absolute Eosinophils (0.0 - 0.7 /CUMM) 0.2 Absolute Basophils (0.0 - 0.2 /CUMM) 0 Last 24 Hours of Attila Results: No new cultures Assessment/Plan ID Impression: Stable, with his temperatures and white blood cell count remaining normal, on Ceftriaxone, Day 3 of treatment for a presumed right lower lobe pneumonia, with his recent chest x-rays revealing a new right lower lobe density and with his sputum culture positive for MSSA, Klebsiella and Serratia. His renal failure continues to improve gradually. Suggestion: 1. Remove Mcgregor catheter if okay with Renal 2. Continue Ceftriaxone
[2018-05-24 14:41] VITALS: BP 112/62
[2018-05-24 22:05] VITALS: BP 118/62
[2018-05-25 06:31] VITALS: BP 133/77
--- NOTE | 2018-05-25 07:49 | PN- Housestaff ---
Mohan DEL VALLE,Que 05/25/18 0749: Subjective Follow-up For: Acute on chronic kidney disease leading to metabolic acidosis History of hepatitis C History of HIV Complaints: no complaints Tele-Events Since Last Visit: GM hold Review of Systems Constitutional: Denies: no symptoms. Objective Last 24 Hrs of Vital Signs/I&O Vital Signs Date Time Temp Pulse Resp B/P B/P Pulse O2 O2 Flow FiO2 Mean Ox Delivery Rate 05/26 1219 Room Air 05/26 0600 98.7 78 18 138/74 92 Room Air 05/25 2228 98.2 85 16 128/78 91 Room Air 05/25 2209 Room Air 05/25 1600 95 Room Air Intake & Output 05/26 1600 05/26 0800 05/26 0000 Intake Total 1000 500 Output Total 600 Balance 1000 -100 Intake, IV 1000 500 Output, Urine 600 Patient 84.17 kg Weight Weight Bed scale Measurement Method Physical Exam General Appearance: Alert, Oriented X3, Cooperative, No Acute Distress Neck: No JVD Cardiovascular: Normal S1, Normal S2 Lungs: bilateral basilar crackles Abdomen: Soft, No Tenderness Extremities: left BKA, right lower extremeties chronic changes Vascular: poor peripheral pulses Current Medications: Current Medications Sig/Puma Start time Last Medication Dose Route Stop Time Status Admin Abacavir Sulfate 300 MG BID 05/18 1315 AC 05/25 PO 0859 Acetaminophen 0 .STK-MED ONE 05/25 0736 DC PO Albuterol Sulfate 2 PUF Q4-6 PRN PRN 05/18 1315 AC INH Calcitriol 0.25 MCG Q48 05/22 0900 AC 05/24 PO 0854 Calcium Acetate 1,334 MG TID 05/19 1400 AC 05/25 PO 1343 Ceftriaxone Sodium 1,000 MG DAILY 05/21 1120 AC 05/25 IV 0855 Cholecalciferol 1,000 IU DAILY 05/20 2145 AC 05/25 PO 0858 Dolutegravir Sodium 50 MG DAILY 05/21 09 AC 05/25 PO 0858 Guaifenesin 600 MG Q12 05/21 09 AC 05/25 PO 0854 Hydromorphone HCl 1 MG Q4P PRN 05/21 0845 AC 05/25 IV 1624 Lamivudine 50 MG DAILY 05/21 09 AC 05/25 PO 0852 Magnesium Chloride 64 MG BID 05/23 2100 AC 05/25 PO 0858 Magnesium Oxide 400 MG BID 05/24 1003 AC 05/25 PO 0853 Potassium Chloride 20 MEQ BID 05/24 1003 AC 05/25 PO 0853 Sodium Bicarbonate 1,300 MG Q6 05/25 1800 AC 05/25 PO 1625 Sodium Bicarbonate 650 MG Q6 05/23 1200 DC 05/25 PO 0608 Sodium Chloride 1,000 ML Q10H 05/20 1230 AC 05/25 IV 1342 Last 24 Hrs of Lab/Attila Results Last 24 Hrs of Labs/Mics: Laboratory Tests 05/25/18 0605: Anion Gap 9, Estimated GFR 12 L, BUN/Creatinine Ratio 11.7, Magnesium 1.8, CBC w Diff NO MAN DIFF REQ, RBC 2.84 L, MCV 93.2, MCH 31.6 H, MCHC 33.9, RDW 15.7 H, MPV 8.5, Gran % 63.1, Lymphocytes % 27.3, Monocytes % 6.9, Eosinophils % 2.3, Basophils % 0.4, Absolute Granulocytes 3.7, Absolute Lymphocytes 1.6, Absolute Monocytes 0.4, Absolute Eosinophils 0.1, Absolute Basophils 0 Assessment/Plan Assessment: Patient is a 58-year-old man with a multiple medical problem brought to the emergency room after episode of fall at home around 30 hours before the admission, leading to hematuria. Past medical history - History of HIV,AIDS, following Dr.Lydia Morocho in [place];[facility] ;last viral load undetectable and his CD4 count approximately 500, History of hepatitis C -treated with Harvoni History of hydronephrosis with a baseline creatinine 2.5 History of neurogenic bladder because of the encephalitis in childhood; doing straight cath 3 times a day History of chronic kidney disease Status post left BKA for MRSA osteomyelitis Vital signs-temperature 99.2, pulse 90, respiratory 20, blood pressure 130/82, SPO2 91% on room air. Blood workup-WBC 5.9, hemoglobin 9.0, platelet count 68,000, serum sodium 135, potassium 3.9, chloride 112, carbon dioxide 14, anion gap 9, BUN 56, creatinine 1.8, GFR 12, magnesium 1.8 Problem list- Aspiration pneumonia/bronchopneumonia right mid and lower lung. Acute kidney disease History of HIV infections Assessment and plan- * Patient is off telemetry. * We will follow attending, infectious disease, nephrology recommendations. * Patient continued to have thrombocytopenia * His creatinine is improved to 4.8. * We supplemented potassium and magnesium * Today he is on day 4 ceftriaxone. We will continue for total 5 days. * According to the economic geographer patient continued to have acidosis to increase the dose of tablets soda bicarb 1300 mg q6. * We discussed with the patient about removing the Mcgregor catheter but he denies for it he said that it is better to have Mcgregor rather than doing a straight cath 3 times in a day. * He also wanted frequent pain medication; we started him on tablet Dilaudid 2 mg every 6. * He refuses further ankle x-ray. CODE STATUS-full code Diet-heart healthy diet DVT prophylaxis-ALP S-do not use heparin as patient has thrombocytopenia Problem List: 1. Lherw-wj-bxhgoci kidney injury 2. HIV (human immunodeficiency virus infection) Pain Ratin Pain Location: right and left foot Pain Goal: Remain pain free Pain Plan: n/a Tomorrow's Labs & Rationales: f/u CBC,BEp, mag, CXR DVT/Prophylaxis: mechanical, pharmacological Juwan Foley 05/25/18 1425: Attending MD Review Statement Attending Statement Attending MD Statement: examined this patient, discuss w/resident/PA/MINER PICK, agreed w/resident/PA/MINER PICK, reviewed EMR data (avail), discussed with case mgmt Attending Assessment/Plan: Acute kidney injury-seems to be resolving, creatinine is down to 4.8 but patient continues to have negative output. So we will increase the IV fluids 125 mL per hour and encourage the patient to drink more water. We will also continue the bicarbonate supplementation. Pneumonia-patient is currently on ceftriaxone. We will continue that for now and follow up on ID recommendations.
[2018-05-25 08:04] LABS: ABSOLUTE BASOPHIL COUNT 0 /CUMM (0.0-0.2); ABSOLUTE EOSINOPHIL COUNT 0.1 /CUMM (0.0-0.7); ABSOLUTE GRANULOCYTE CT 3.7 /CUMM (1.4-6.5); ABSOLUTE LYMPH COUNT 1.6 /CUMM (1.2-3.4); ABSOLUTE MONOCYTE COUNT 0.4 /CUMM (0.10-0.60); BASOPHIL % 0.4 % (0.0-2.0); EOSINOPHIL % 2.3 % (0-5); GRANULOCYTE % 63.1 % (42.2-75.2); HEMATOCRIT 26.5 % (42-52); MEAN CORPUSCULAR HGB 31.6 PG (27.0-31.0); MEAN CORPUSCULAR HGB CONC 33.9 G/DL (33.0-37.0); MEAN CORPUSCULAR VOLUME 93.2 FL (80.0-94.0); MEAN PLATELET VOLUME 8.5 FL (7.4-10.4); PLATELET COUNT 68 /CUMM (130-400); RBC DISTRIBUTION WIDTH 15.7 % (11.5-14.5); RED BLOOD CELL CT 2.84 /CUMM (4.70-6.10); WHITE BLOOD CELL COUNT 5.9 /CUMM (4.8-10.8)
--- NOTE | 2018-05-25 09:21 | PN- Nephrology ---
Assessment/Plan Nephrology Assessment: Still on ceftriaxone for pneumonia. Renal function slowly improving. Suggestion: Increase bicarb to 1300 mg qid given worsening acidemia. Subjective Subjective: Patient feeling well, no new complaints. Objective Vital Signs and I&Os Vital Signs Date Time Temp Pulse Resp B/P B/P Pulse O2 O2 Flow FiO2 Mean Ox Delivery Rate 05/25 0631 98.2 91 20 133/77 93 Room Air 05/25 0000 Room Air 05/24 2205 98.2 90 16 118/62 91 Nasal Cannula 05/24 1600 93 Room Air 05/24 1441 98.3 82 20 112/62 95 Nasal Cannula Intake & Output 05/25 1600 05/25 0400 05/24 1600 05/24 0400 05/23 1600 05/23 0400 Intake Total 803 769 9353 1480 360 Output Total 1800 1600 3500 1850 5200 1999 Balance -1440 -1000 -2240 -1850 -3720 -1640 Intake, IV 600 600 600 Intake, Oral 360 660 880 360 Number 1 Bowel Movements Output, Urine 1800 1600 3500 1850 5200 1999 Patient 189 lb 191 lb 194 lb Weight Weight Bed scale Bed scale Bed scale Measurement Method Physical Exam: NAD VS as above Lungs: rhonchi bilaterally CV: no rub Abd: nontender Exts: no edema Neuro: A&O, no asterixis Current Medications: Current Medications Sig/Puma Start time Last Medication Dose Route Stop Time Status Admin Abacavir Sulfate 300 MG BID 05/18 1315 AC 05/25 PO 0859 Acetaminophen 0 .STK-MED ONE 05/25 0736 DC PO Albuterol Sulfate 2 PUF Q4-6 PRN PRN 05/18 131 AC INH Calcitriol 0.25 MCG Q48 05/22 09 AC 05/24 PO 0854 Calcium Acetate 1,334 MG TID 05/19 1400 AC 05/25 PO 0854 Ceftriaxone Sodium 1,000 MG DAILY 05/21 1120 AC 05/25 IV 0855 Cholecalciferol 1,000 IU DAILY 05/20 2145 AC 05/25 PO 0858 Dolutegravir Sodium 50 MG DAILY 05/21 0900 AC 05/25 PO 0858 Guaifenesin 600 MG Q12 05/21 0900 AC 05/25 PO 0854 Hydromorphone HCl 1 MG Q4P PRN 05/21 0845 AC 05/25 IV 0608 Lamivudine 50 MG DAILY 05/21 0900 AC 05/25 PO 0852 Magnesium Chloride 64 MG BID 05/23 2100 AC 05/25 PO 0858 Magnesium Oxide 400 MG BID 05/24 1003 AC 05/25 PO 0853 Potassium Chloride 20 MEQ BID 05/24 1003 AC 05/25 PO 0853 Sodium Bicarbonate 650 MG Q6 05/23 1200 AC 05/25 PO 0608 Sodium Chloride 1,000 ML Q10H 05/20 1230 AC 05/25 IV 0207 Results Pertinent Lab Results: Laboratory Tests 05/25 05/24 0605 0720 Chemistry Sodium (137 - 145 mmol/L) 135 L 135 L Potassium (3.5 - 5.1 mmol/L) 3.9 3.4 L Chloride (98 - 107 mmol/L) 112 H 109 H Carbon Dioxide (22 - 30 mmol/L) 14 L 16 L Anion Gap (5 - 16) 9 10 BUN (9 - 20 mg/dL) 56 H 62 H Creatinine (0.7 - 1.2 mg/dL) 4.8 H 5.1 *H Estimated GFR (>60 ml/min) 12 L 12 L BUN/Creatinine Ratio (7 - 25 %) 11.7 12.2 Magnesium (1.6 - 2.3 mg/dL) 1.8 1.7 Hematology CBC w Diff NO MAN DIFF REQ NO MAN DIFF REQ WBC (4.8 - 10.8 /CUMM) 5.9 7.0 RBC (4.70 - 6.10 /CUMM) 2.84 L 2.84 L Hgb (14.0 - 18.0 G/DL) 9.0 L 9.2 L Hct (42 - 52 %) 26.5 L 26.5 L MCV (80.0 - 94.0 FL) 93.2 93.2 MCH (27.0 - 31.0 PG) 31.6 H 32.5 H MCHC (33.0 - 37.0 G/DL) 33.9 34.8 RDW (11.5 - 14.5 %) 15.7 H 16.2 H Plt Count (130 - 400 /CUMM) 68 L 72 L MPV (7.4 - 10.4 FL) 8.5 8.4 Gran % (42.2 - 75.2 %) 63.1 68.4 Lymphocytes % (20.5 - 51.1 %) 27.3 22.1 Monocytes % (1.7 - 9.3 %) 6.9 6.6 Eosinophils % (0 - 5 %) 2.3 2.6 Basophils % (0.0 - 2.0 %) 0.4 0.3 Absolute Granulocytes (1.4 - 6.5 /CUMM) 3.7 4.8 Absolute Lymphocytes (1.2 - 3.4 /CUMM) 1.6 1.5 Absolute Monocytes (0.10 - 0.60 /CUMM) 0.4 0.5 Absolute Eosinophils (0.0 - 0.7 /CUMM) 0.1 0.2 Absolute Basophils (0.0 - 0.2 /CUMM) 0 0 08/25 0609 Chemistry Sodium (137 - 145 mmol/L) 135 L Potassium (3.5 - 5.1 mmol/L) 3.6 Chloride (98 - 107 mmol/L) 106 Carbon Dioxide (22 - 30 mmol/L) 19 L Anion Gap (5 - 16) 10 BUN (9 - 20 mg/dL) 65 H Creatinine (0.7 - 1.2 mg/dL) 6.1 *H Estimated GFR (>60 ml/min) 9 L BUN/Creatinine Ratio (7 - 25 %) 10.7 Magnesium (1.6 - 2.3 mg/dL) 1.9 Hematology CBC w Diff NO MAN DIFF REQ WBC (4.8 - 10.8 /CUMM) 10.9 H RBC (4.70 - 6.10 /CUMM) 2.90 L Hgb (14.0 - 18.0 G/DL) 9.4 L Hct (42 - 52 %) 27.3 L MCV (80.0 - 94.0 FL) 93.9 MCH (27.0 - 31.0 PG) 32.3 H MCHC (33.0 - 37.0 G/DL) 34.4 RDW (11.5 - 14.5 %) 15.6 H Plt Count (130 - 400 /CUMM) 74 L MPV (7.4 - 10.4 FL) 8.5 Gran % (42.2 - 75.2 %) 77.7 H Lymphocytes % (20.5 - 51.1 %) 15.5 L Monocytes % (1.7 - 9.3 %) 6.0 Eosinophils % (0 - 5 %) 0.5 Basophils % (0.0 - 2.0 %) 0.3 Absolute Granulocytes (1.4 - 6.5 /CUMM) 8.5 H Absolute Lymphocytes (1.2 - 3.4 /CUMM) 1.7 Absolute Monocytes (0.10 - 0.60 /CUMM) 0.6 Absolute Eosinophils (0.0 - 0.7 /CUMM) 0 Absolute Basophils (0.0 - 0.2 /CUMM) 0
--- NOTE | 2018-05-25 10:26 | PN- Pulmonary ---
Subjective HPI/Critical Care Issues: pt seen and examined some sputum production overall feeling better creatinine improved sputum cx Klebsiella pneumoniae Serratia Marcescens MSSA Objective Current Medications: Current Medications Sig/Puma Start time Last Medication Dose Route Stop Time Status Admin Abacavir Sulfate 300 MG BID 05/18 1315 AC 05/25 PO 0859 Acetaminophen 0 .STK-MED ONE 05/25 0736 DC PO Albuterol Sulfate 2 PUF Q4-6 PRN PRN 05/18 1315 AC INH Calcitriol 0.25 MCG Q48 05/22 0900 AC 05/24 PO 0854 Calcium Acetate 1,334 MG TID 05/19 1400 AC 05/25 PO 0854 Ceftriaxone Sodium 1,000 MG DAILY 05/21 1120 AC 05/25 IV 0855 Cholecalciferol 1,000 IU DAILY 05/20 2145 AC 05/25 PO 0858 Dolutegravir Sodium 50 MG DAILY 05/21 0900 AC 05/25 PO 0858 Guaifenesin 600 MG Q12 05/21 0900 AC 05/25 PO 0854 Hydromorphone HCl 1 MG Q4P PRN 05/21 0845 AC 05/25 IV 1017 Lamivudine 50 MG DAILY 05/21 0900 AC 05/25 PO 0852 Magnesium Chloride 64 MG BID 05/23 2100 AC 05/25 PO 0858 Magnesium Oxide 400 MG BID 05/24 1003 AC 05/25 PO 0853 Potassium Chloride 20 MEQ BID 05/24 1003 AC 05/25 PO 0853 Sodium Bicarbonate 650 MG Q6 05/23 1200 AC 05/25 PO 0608 Sodium Chloride 1,000 ML Q10H 05/20 1230 AC 05/25 IV 0207 Vital Signs & I&O Last 24 Hrs of Vitals and I&O: Vital Signs Date Time Temp Pulse Resp B/P B/P Pulse O2 O2 Flow FiO2 Mean Ox Delivery Rate 05/25 0631 98.2 91 20 133/77 93 Room Air 05/25 0000 Room Air 05/24 2205 98.2 90 16 118/62 91 Nasal Cannula 05/24 1600 93 Room Air 05/24 1441 98.3 82 20 112/62 95 Nasal Cannula Intake & Output 05/25 1600 05/25 0800 05/25 0000 Intake Total 360 600 Output Total 1800 1600 Balance -1440 -1000 Intake, IV 600 Intake, Oral 360 Output, Urine 1800 1600 Patient 189 lb Weight Weight Bed scale Measurement Method Exam Other Physical Findings: [id number] heent-ncat, room air cvs-s1,s2 lungs-rare rhonchi abd-soft,bs+ ext-left bka Results Last 24 Hrs of Lab Results: Laboratory Tests 05/25/18 0605: Anion Gap 9, Estimated GFR 12 L, BUN/Creatinine Ratio 11.7, Magnesium 1.8, CBC w Diff NO MAN DIFF REQ, RBC 2.84 L, MCV 93.2, MCH 31.6 H, MCHC 33.9, RDW 15.7 H, MPV 8.5, Gran % 63.1, Lymphocytes % 27.3, Monocytes % 6.9, Eosinophils % 2.3, Basophils % 0.4, Absolute Granulocytes 3.7, Absolute Lymphocytes 1.6, Absolute Monocytes 0.4, Absolute Eosinophils 0.1, Absolute Basophils 0 Impression/Plan Impression/Plan Impression/Plan: Impression 58 year old man * R mid/lower lung field opacification - sputum with Klebsiella pneumoniae, Serratia Marcescens, MSSA * acute on chronic renal failure with reduced PO intake and borderline hypotension likely pre-renal in nature, with metabolic acidosis * hx of HIV * hx of recurrent UTI's * s/p fall * hx of left BKA Plan -can repeat cxr pa/lateral - 05/26 -continue to f/u ID recommendations -on ceftriaxone -incentive spirometry -oob as tolerated DVT prophylaxis at all times
--- NOTE | 2018-05-25 10:40 | PN- Infect Dx ---
Subjective Subjective: Afebrile. He continues to have an occasional cough, with white sputum, but does not report shortness of breath or chest pain. Objective Last 24 Hrs of Vital Signs/I&O Vital Signs Date Time Temp Pulse Resp B/P B/P Pulse O2 O2 Flow FiO2 Mean Ox Delivery Rate 05/25 0631 98.2 91 20 133/77 93 Room Air 05/25 0000 Room Air 05/24 2205 98.2 90 16 118/62 91 Nasal Cannula 05/24 1600 93 Room Air 05/24 1441 98.3 82 20 112/62 95 Nasal Cannula Intake & Output 05/25 1600 05/25 0800 05/25 0000 Intake Total 360 600 Output Total 1800 1600 Balance -1440 -1000 Intake, IV 600 Intake, Oral 360 Output, Urine 1800 1600 Patient 189 lb Weight Weight Bed scale Measurement Method Physical Exam Other Physical Findings: He appears comfortable in no acute distress Lungs crackles at the right base Heart regular rhythm with no murmur Abdomen is soft, nontender with positive bowel sounds Results Last 24 Hours of Lab Results: Laboratory Tests 05/25 06 Chemistry Sodium (137 - 145 mmol/L) 135 L Potassium (3.5 - 5.1 mmol/L) 3.9 Chloride (98 - 107 mmol/L) 112 H Carbon Dioxide (22 - 30 mmol/L) 14 L Anion Gap (5 - 16) 9 BUN (9 - 20 mg/dL) 56 H Creatinine (0.7 - 1.2 mg/dL) 4.8 H Estimated GFR (>60 ml/min) 12 L BUN/Creatinine Ratio (7 - 25 %) 11.7 Magnesium (1.6 - 2.3 mg/dL) 1.8 Hematology CBC w Diff NO MAN DIFF REQ WBC (4.8 - 10.8 /CUMM) 5.9 RBC (4.70 - 6.10 /CUMM) 2.84 L Hgb (14.0 - 18.0 G/DL) 9.0 L Hct (42 - 52 %) 26.5 L MCV (80.0 - 94.0 FL) 93.2 MCH (27.0 - 31.0 PG) 31.6 H MCHC (33.0 - 37.0 G/DL) 33.9 RDW (11.5 - 14.5 %) 15.7 H Plt Count (130 - 400 /CUMM) 68 L MPV (7.4 - 10.4 FL) 8.5 Gran % (42.2 - 75.2 %) 63.1 Lymphocytes % (20.5 - 51.1 %) 27.3 Monocytes % (1.7 - 9.3 %) 6.9 Eosinophils % (0 - 5 %) 2.3 Basophils % (0.0 - 2.0 %) 0.4 Absolute Granulocytes (1.4 - 6.5 /CUMM) 3.7 Absolute Lymphocytes (1.2 - 3.4 /CUMM) 1.6 Absolute Monocytes (0.10 - 0.60 /CUMM) 0.4 Absolute Eosinophils (0.0 - 0.7 /CUMM) 0.1 Absolute Basophils (0.0 - 0.2 /CUMM) 0 Last 24 Hours of Attila Results: No new cultures Assessment/Plan ID Impression: Stable, with his temperatures and white blood cell count remaining normal, on Ceftriaxone, Day 4 of treatment for a presumed right lower lobe pneumonia secondary to MSSA, Klebsiella and Serratia. His renal failure continues to improve gradually. Suggestion: 1. Remove Mcgregor catheter if okay with Renal 2. Continue Ceftriaxone
[2018-05-25 14:54] VITALS: BP 130/82
--- NOTE | 2018-05-25 20:58 | RADIOLOGY REPORT ---
EXAMINATION: XR CHEST CLINICAL INFORMATION: Shortness of breath. COMPARISON: Chest x-ray 05/22/2018. 05/22/2018, 05/20/2018, 05/18/2018 07/31/2017 TECHNIQUE: 2 views of the chest were obtained. FINDINGS: There is hyperinflation of lungs. There is increased interstitial lung markings. These interstitial lung markings are more pronounced than the exam of 05/18/2018, similar to the exam of 05/22/2018. The increased lung markings are little asymmetric more on the right mid and lower lung than on the left lung. Differential diagnosis would include interstitial pneumonia versus interstitial edema. There is no focal dense consolidation. There is no large pleural effusions. The cardiac and mediastinal contours are normal. The heart size is normal. IMPRESSION: 1. Hyperinflation of lung. 2. Increased interstitial lung markings. This could be due to interstitial pneumonia versus interstitial edema. There is no focal dense consolidation.
--- NOTE | 2018-05-25 21:06 | RADIOLOGY REPORT ---
EXAMINATION: XR ANKLE, RIGHT CLINICAL INFORMATION: Pain and right leg history of fall COMPARISON: 10/04/2016 TECHNIQUE: AP, lateral, and mortise views of the right ankle. FINDINGS: The bones and soft tissues are normal aside from some mild degenerative changes. No fracture. Alignment is anatomic. Joint spaces are maintained. No joint effusion. IMPRESSION: No acute disease involving the right ankle
[2018-05-25 22:28] VITALS: BP 128/78
[2018-05-26 06:00] VITALS: BP 138/74
[2018-05-26 08:11] LABS: ABSOLUTE BASOPHIL COUNT 0 /CUMM (0.0-0.2); ABSOLUTE EOSINOPHIL COUNT 0.1 /CUMM (0.0-0.7); ABSOLUTE GRANULOCYTE CT 4.1 /CUMM (1.4-6.5); ABSOLUTE LYMPH COUNT 1.9 /CUMM (1.2-3.4); ABSOLUTE MONOCYTE COUNT 0.4 /CUMM (0.10-0.60); BASOPHIL % 0.2 % (0.0-2.0); EOSINOPHIL % 1.6 % (0-5); GRANULOCYTE % 62.1 % (42.2-75.2); MEAN CORPUSCULAR HGB 31.9 PG (27.0-31.0); MEAN CORPUSCULAR HGB CONC 34.2 G/DL (33.0-37.0); MEAN CORPUSCULAR VOLUME 93.3 FL (80.0-94.0); MEAN PLATELET VOLUME 8.6 FL (7.4-10.4); RBC DISTRIBUTION WIDTH 15.8 % (11.5-14.5); WHITE BLOOD CELL COUNT 6.5 /CUMM (4.8-10.8)
--- NOTE | 2018-05-26 08:47 | PN- Pulmonary ---
Subjective HPI/Critical Care Issues: pt seen and examined cxr with increased markings overall feeling better some abdominal discomfort, no n/v mild cough, no dyspnea at rest no duncan, no cp Objective Current Medications: Current Medications Sig/Puma Start time Last Medication Dose Route Stop Time Status Admin Abacavir Sulfate 300 MG BID 05/18 1315 AC 05/25 PO 2141 Albuterol Sulfate 2 PUF Q4-6 PRN PRN 05/18 1315 AC INH Calcitriol 0.25 MCG Q48 05/22 0900 AC 05/24 PO 0854 Calcium Acetate 1,334 MG TID 05/19 1400 AC 05/25 PO 2141 Ceftriaxone Sodium 1,000 MG DAILY 05/21 1120 AC 05/25 IV 0855 Cholecalciferol 1,000 IU DAILY 05/20 2145 AC 05/25 PO 0858 Dolutegravir Sodium 50 MG DAILY 05/21 0900 AC 05/25 PO 0858 Guaifenesin 600 MG Q12 05/21 0900 AC 05/25 PO 2141 Hydromorphone HCl 2 MG Q6 05/25 1800 AC 05/26 PO 0653 Hydromorphone HCl 1 MG Q4P PRN 05/21 0845 AC 05/26 IV 0339 Lamivudine 50 MG DAILY 05/21 0900 AC 05/25 PO 0852 Magnesium Chloride 64 MG BID 05/23 2100 AC 05/25 PO 2141 Magnesium Oxide 400 MG BID 05/24 1003 AC 05/25 PO 2141 Potassium Chloride 20 MEQ BID 05/24 1003 AC 05/25 PO 2142 Sodium Bicarbonate 1,300 MG Q6 05/25 1800 AC 05/26 PO 0653 Sodium Bicarbonate 650 MG Q6 05/23 1200 DC 05/25 PO 0608 Sodium Chloride 1,000 ML Q10H 05/20 1230 AC 05/25 IV 2320 Vital Signs & I&O Last 24 Hrs of Vitals and I&O: Vital Signs Date Time Temp Pulse Resp B/P B/P Pulse O2 O2 Flow FiO2 Mean Ox Delivery Rate 05/26 06 98.7 78 18 138/74 92 Room Air 05/25 2228 98.2 85 16 128/78 91 Room Air 05/25 2209 Room Air 05/25 1600 95 Room Air 05/25 1454 99.2 90 20 130/82 91 Room Air Intake & Output 05/26 1600 05/26 0800 05/26 0000 Intake Total 1000 500 Output Total 600 Balance 1000 -100 Intake, IV 1000 500 Output, Urine 600 Patient 186 lb Weight Weight Bed scale Measurement Method Exam Other Physical Findings: [id number] heent-ncat, room air cvs-s1,s2 lungs-rare rhonchi much improved abd-soft,bs+ ext-left bka Results Last 24 Hrs of Lab Results: Laboratory Tests 05/26/18 0615: Sodium Pending, Potassium Pending, Chloride Pending, Carbon Dioxide Pending, Anion Gap Pending, BUN Pending, Creatinine Pending, BUN/Creatinine Ratio Pending , Magnesium Pending, CBC w Diff Pending, WBC Pending, RBC Pending, Hgb Pending, Hct Pending, MCV Pending, MCH Pending, MCHC Pending, RDW Pending, Plt Count Pending, MPV Pending, Gran % Pending, Lymphocytes % Pending, Monocytes % Pending , Eosinophils % Pending, Basophils % Pending, Absolute Granulocytes Pending, Absolute Lymphocytes Pending, Absolute Monocytes Pending, Absolute Eosinophils Pending, Absolute Basophils Pending Impression/Plan Impression/Plan Impression/Plan: Impression 58 year old man * R mid/lower lung field opacification - sputum with Klebsiella pneumoniae, Serratia Marcescens, MSSA * acute on chronic renal failure with reduced PO intake and borderline hypotension likely pre-renal in nature, with metabolic acidosis * hx of HIV * hx of recurrent UTI's * s/p fall * hx of left BKA Plan -can repeat cxr pa/lateral on an outpatient basis with myself or PMD - 6 weeks -continue to f/u ID recommendations -on ceftriaxone -incentive spirometry -oob as tolerated DVT prophylaxis at all times Discharge planning - patient voicing preference for discharge
[2018-05-26 08:51] LABS: PLATELET COUNT 74 /CUMM (130-400)
--- NOTE | 2018-05-26 11:30 | PN- Att Addend ---
Attending MD Review Statement Attending Statement Attending MD Statement: examined this patient, discuss w/resident/PA/MEDIA MONITOR, agreed w/resident/PA/MEDIA MONITOR, reviewed EMR data (avail), discussed w/nursing, discussed w/ case mgmt Attending Assessment/Plan: Acute kidney injury-seems to be resolving, creatinine is down to 4.2 but patient continues to have negative output. So we will cont the IV fluids at 125 mL per hour and encourage the patient to drink more water. We will also continue the bicarbonate supplementation. Nephrology following pt closely. Pneumonia-patient is currently on ceftriaxone. We will continue that for now and follow up on ID recommendations. Ankle and leg pain rt leg- ankle xray was ok. will get arterial doppler rt lower extremity. d/w pt the care plan. pt lives independently at home. Will get PT consult to assess for safe discharge plan.
--- NOTE | 2018-05-26 11:44 | PN- Nephrology ---
Assessment/Plan Nephrology Assessment: Unclear origin of nausea but would like to make sure he can tolerate his meds before discharge. Renal function continues to improve. Suggestion: Probably need to watch another day in hospital to make sure he can take adequate po, not vomit, before discharge. Subjective Subjective: Patient nauseated, he thinks from pills. Has not yet vomited. ABDIRASHID continues to improve. Objective Vital Signs and I&Os Vital Signs Date Time Temp Pulse Resp B/P B/P Pulse O2 O2 Flow FiO2 Mean Ox Delivery Rate 05/26 06 98.7 78 18 138/74 92 Room Air 05/25 2228 98.2 85 16 128/78 91 Room Air 05/25 2209 Room Air 05/25 1600 95 Room Air 05/25 1454 99.2 90 20 130/82 91 Room Air Intake & Output 05/26 1600 05/26 0400 05/25 1600 05/25 0400 05/24 1600 05/24 0400 Intake Total 8665 289 6759 600 1260 Output Total 600 3800 1600 3500 1850 Balance 1000 -100 -1865 -1000 -2240 -1850 Intake, IV 1000 500 775 600 600 Intake, Oral 1160 660 Number 1 Bowel Movements Output, Urine 600 3800 1600 3500 1850 Patient 186 lb 189 lb 191 lb Weight Weight Bed scale Bed scale Bed scale Measurement Method Physical Exam: NAD VS as above Lungs: rhonchi bilaterally CV: no rub Abd: nontender Exts: no edema Neuro: A&O, no asterixis Current Medications: Current Medications Sig/Puma Start time Last Medication Dose Route Stop Time Status Admin Abacavir Sulfate 300 MG BID 05/18 1315 AC 05/26 PO 0921 Albuterol Sulfate 2 PUF Q4-6 PRN PRN 05/18 131 AC INH Calcitriol 0.25 MCG Q48 05/22 09 AC 05/26 PO 0922 Calcium Acetate 1,334 MG TID 05/19 1400 AC 05/26 PO 0922 Ceftriaxone Sodium 1,000 MG DAILY 05/21 1120 AC 05/26 IV 0920 Cholecalciferol 1,000 IU DAILY 05/20 2145 AC 05/26 PO 09 Dolutegravir Sodium 50 MG DAILY 05/21 0900 AC 05/26 PO 0921 Guaifenesin 600 MG Q12 05/21 09 AC 05/26 PO 0922 Hydromorphone HCl 2 MG Q6 05/25 1800 AC 05/26 PO 0653 Hydromorphone HCl 1 MG Q4P PRN 05/21 0845 AC 05/26 IV 0920 Lamivudine 50 MG DAILY 05/21 0900 AC 05/26 PO 0921 Magnesium Chloride 64 MG BID 05/23 2100 AC 05/26 PO 0921 Magnesium Oxide 400 MG BID 05/24 1003 AC 05/26 PO 0922 Potassium Chloride 0 .STK-MED ONE 05/26 0930 DC PO Potassium Chloride 20 MEQ BID 05/24 1003 AC 05/26 PO 0931 Sodium Bicarbonate 1,300 MG Q6 05/25 1800 AC 05/26 PO 0653 Sodium Bicarbonate 650 MG Q6 05/23 1200 DC 05/25 PO 0608 Sodium Chloride 1,000 ML Q10H 05/20 1230 AC 05/26 IV 0936 Results Pertinent Lab Results: Laboratory Tests 05/26 05/25 0615 0605 Chemistry Sodium (137 - 145 mmol/L) 134 L 135 L Potassium (3.5 - 5.1 mmol/L) 4.5 3.9 Chloride (98 - 107 mmol/L) 112 H 112 H Carbon Dioxide (22 - 30 mmol/L) 14 L 14 L Anion Gap (5 - 16) 8 9 BUN (9 - 20 mg/dL) 52 H 56 H Creatinine (0.7 - 1.2 mg/dL) 4.2 H 4.8 H Estimated GFR (>60 ml/min) 15 L 12 L BUN/Creatinine Ratio (7 - 25 %) 12.4 11.7 Magnesium (1.6 - 2.3 mg/dL) 1.8 1.8 Hematology CBC w Diff NO MAN DIFF REQ NO MAN DIFF REQ WBC (4.8 - 10.8 /CUMM) 6.5 5.9 RBC (4.70 - 6.10 /CUMM) 2.90 L 2.84 L Hgb (14.0 - 18.0 G/DL) 9.2 L 9.0 L Hct (42 - 52 %) 27.0 L 26.5 L MCV (80.0 - 94.0 FL) 93.3 93.2 MCH (27.0 - 31.0 PG) 31.9 H 31.6 H MCHC (33.0 - 37.0 G/DL) 34.2 33.9 RDW (11.5 - 14.5 %) 15.8 H 15.7 H Plt Count (130 - 400 /CUMM) 74 L 68 L MPV (7.4 - 10.4 FL) 8.6 8.5 Gran % (42.2 - 75.2 %) 62.1 63.1 Lymphocytes % (20.5 - 51.1 %) 29.5 27.3 Monocytes % (1.7 - 9.3 %) 6.6 6.9 Eosinophils % (0 - 5 %) 1.6 2.3 Basophils % (0.0 - 2.0 %) 0.2 0.4 Absolute Granulocytes (1.4 - 6.5 /CUMM) 4.1 3.7 Absolute Lymphocytes (1.2 - 3.4 /CUMM) 1.9 1.6 Absolute Monocytes (0.10 - 0.60 /CUMM) 0.4 0.4 Absolute Eosinophils (0.0 - 0.7 /CUMM) 0.1 0.1 Absolute Basophils (0.0 - 0.2 /CUMM) 0 0 08/26 0720 Chemistry Sodium (137 - 145 mmol/L) 135 L Potassium (3.5 - 5.1 mmol/L) 3.4 L Chloride (98 - 107 mmol/L) 109 H Carbon Dioxide (22 - 30 mmol/L) 16 L Anion Gap (5 - 16) 10 BUN (9 - 20 mg/dL) 62 H Creatinine (0.7 - 1.2 mg/dL) 5.1 *H Estimated GFR (>60 ml/min) 12 L BUN/Creatinine Ratio (7 - 25 %) 12.2 Magnesium (1.6 - 2.3 mg/dL) 1.7 Hematology CBC w Diff NO MAN DIFF REQ WBC (4.8 - 10.8 /CUMM) 7.0 RBC (4.70 - 6.10 /CUMM) 2.84 L Hgb (14.0 - 18.0 G/DL) 9.2 L Hct (42 - 52 %) 26.5 L MCV (80.0 - 94.0 FL) 93.2 MCH (27.0 - 31.0 PG) 32.5 H MCHC (33.0 - 37.0 G/DL) 34.8 RDW (11.5 - 14.5 %) 16.2 H Plt Count (130 - 400 /CUMM) 72 L MPV (7.4 - 10.4 FL) 8.4 Gran % (42.2 - 75.2 %) 68.4 Lymphocytes % (20.5 - 51.1 %) 22.1 Monocytes % (1.7 - 9.3 %) 6.6 Eosinophils % (0 - 5 %) 2.6 Basophils % (0.0 - 2.0 %) 0.3 Absolute Granulocytes (1.4 - 6.5 /CUMM) 4.8 Absolute Lymphocytes (1.2 - 3.4 /CUMM) 1.5 Absolute Monocytes (0.10 - 0.60 /CUMM) 0.5 Absolute Eosinophils (0.0 - 0.7 /CUMM) 0.2 Absolute Basophils (0.0 - 0.2 /CUMM) 0
--- NOTE | 2018-05-26 12:15 | PN- Housestaff ---
Subjective Follow-up For: Aspiration pneumonia/bronchopneumonia right mid and lower lung. Acute on chronic kidney disease Complaints: c/o pain in legs Tele-Events Since Last Visit: no overnight events Subjective: Patient is seen and examined at the bedside. He was complaining of pain in the legs. He wanted to go home as he has to pay the rent of his home and other bills. He does not want to remove the Mcgregor catheter until he is in the hospital after going home he can restart on straight cath. Review of Systems Constitutional: Reports: no symptoms. Musculoskeletal: Reports: joint pain, muscle pain. Objective Last 24 Hrs of Vital Signs/I&O Vital Signs Date Time Temp Pulse Resp B/P B/P Pulse O2 O2 Flow FiO2 Mean Ox Delivery Rate 05/26 1219 Room Air 05/26 0600 98.7 78 18 138/74 92 Room Air 05/25 2228 98.2 85 16 128/78 91 Room Air 05/25 2209 Room Air 05/25 1600 95 Room Air Intake & Output 05/26 1600 05/26 0800 05/26 0000 Intake Total 1000 500 Output Total 600 Balance 1000 -100 Intake, IV 1000 500 Output, Urine 600 Patient 84.17 kg Weight Weight Bed scale Measurement Method Physical Exam General Appearance: Alert, Oriented X3, Cooperative, No Acute Distress Cardiovascular: Normal S1, Normal S2 Lungs: there were crackles on left lung Abdomen: Soft, No Tenderness Extremities: left knee BKA and right leg chronic changes Vascular: poor pulses Assessment/Plan Assessment: Patient is a 58-year-old man with a multiple medical problem brought to the emergency room after episode of fall at home around 30 hours before the admission, leading to hematuria. Past medical history - * History of HIV,AIDS, following Dr.Lydia Morocho in [place];[facility];last viral load undetectable and his CD4 count approximately 500, * History of hepatitis C -treated with Harvoni * History of hydronephrosis with a baseline creatinine 2.5 * History of neurogenic bladder because of the encephalitis in childhood; doing straight cath 3 times a day * History of chronic kidney disease * Status post left BKA for MRSA osteomyelitis Vital signs-temperature 98.2, pulse 85, respirations 16, blood pressure 128/78, SPO2 91% on room air Blood workup-hemoglobin 9.2, WBC 6.5, MCV 93.3, platelet count 74,000, sodium 134, potassium 4.5, carbon dioxide 14, anion gap 8, BUN 52, creatinine 4.2, GFR 15, magnesium 1.8, Problem list- Aspiration pneumonia/bronchopneumonia right mid and lower lung. Acute on chronic kidney disease CXR - 1. Hyperinflation of lung. 2. Increased interstitial lung markings. This could be due to interstitial pneumonia versus interstitial edema. There is no focal dense consolidation. Duplex of LE -No Doppler imaging evidence of hemodynamically significant arterial disease in the right and left lower extremities. Assessment and plan- * Patient is off telemetry. * We will follow attending, infectious disease, nephrology recommendations. * Patient continued to have thrombocytopenia * His creatinine is improved to 4.2 * Today he is on day 5 ceftriaxone. * According to the senior storage administrator patient may need one more day of stay. * We discussed with the patient about removing the Mcgregor catheter but he denies for it he said that it is better to have Mcgregor rather than doing a straight cath 3 times in a day. he will ready for it after discharge. * continue tablet Dilaudid 2 mg every 6. * Plan is to discharge the patient tomorrow, take out the Mcgregor and discussed with Dr. berrios about antibiotics. * Patient still on IV fluid 125 cc/h. Please watch for urine output on further deciding of IV fluid and fluid overload. * Patient is currently on sodium bicarb 1300 mg 4 times daily. We will discuss with the senior storage administrator for further recommendation at the time of discharge. CODE STATUS-full code Diet-heart healthy diet DVT prophylaxis-ALP S-do not use heparin as patient has thrombocytopenia Problem List: 1. Gpmhb-zl-nhoyiwk kidney injury 2. HIV (human immunodeficiency virus infection) 3. Pneumonia Pain Ratin Pain Location: both legs Pain Goal: Remain pain free Pain Plan: avoid NSAIDs Tomorrow's Labs & Rationales: CBC,BEP , mag for f/u DVT/Prophylaxis: mechanical
--- NOTE | 2018-05-26 12:18 | Patient Discharge Instructions ---
Discharge Instructions General Discharge Information You were seen/treated for: Fall, lenny,bronchitis Watch for these problems: Increase of fall, decreased urine output, chest pain, abdominal pain please go to the nearest emergency room Special Instructions: can repeat cxr pa/lateral and complete metabolic panel in 1 week and follow-up with your primary care physician and nephrology within 1-2 weeks of discharge Diet Recommended Diet: Renal Dialysis Activity Full Activity/No Limits: No Activity Self Limited: Yes Acute Coronary Syndrome Inclusion Criteria At DC or during hospital stay patient has or had the following: ACS DIAGNOSIS No Discharge Core Measures Meds if any: Prescribed or Continued at Discharge Meds if any: NOT Prescribed or Continued at Discharge Congestive Heart Failure Inclusion Criteria At DC or during hospital stay patient has or had the following: CHF DIAGNOSIS No Discharge Core Measures Meds if any: Prescribed or Continued at Discharge Meds if any: NOT Prescribed or Continued at Discharge Cerebrovascular accident Inclusion Criteria At DC or during hospital stay patient has or had the following: CVA/TIA Diagnosis No Discharge Core Measures Meds if any: Prescribed or Continued at Discharge Meds if any: NOT Prescribed or Continued at Discharge Venous thromboembolism Inclusion Criteria VTE Diagnosis No VTE Type NONE VTE Confirmed by (Test) NONE Discharge Core Measures - Per Current guidelines, there needs to be overlap - treatment for the first 5 days of Warfarin therapy. - If discharged on Warfarin prior to 5 days of - overlap therapy, the patient will need to be - assessed for post discharge needs including - *Post discharge parental anticoagulation - *Warfarin and/or parental anticoagulation education - *Follow up date to check INR post discharge At least 5 days overlap therapy as Inpatient No Meds if any: Prescribed or Continued at Discharge Note: Overlap Therapy is Warfarin and Anticoagulant Meds if any: NOT Prescribed or Continued at Discharge
--- NOTE | 2018-05-26 13:56 | Discharge Summary ---
Visit Information Visit Dates Admission Date: 05/18/18 Discharge Date: 05/26/2018 Hospital Course Course Attending Physician: juwan bruce Primary Care Physician: Rashawn DEL VALLE,Radha [facility] Course: Patient is a 58-year-old man with a multiple medical problem brought to the emergency room after episode of fall at home around 30 hours before the admission, followed by hematuria. Acute on chronic kidney disease - We admitted the patient to the ICU. Skeletal evaluation was done there was no any evidence of fracture in his spine and the hip including ankle. We obtain nephrology consultation who advised IV sodium bicarb drip. Ultrasound of the kidney did not show any evidence of hydronephrosis. It was decided that patient should be treated conservatively and started him on calcium acetate, Phosphate binder. His creatinine continued to improve with the conservative management. We changed IV sodium bicarb to oral medication. We removed his Mcgregor. Patient will straight catheterize himself 3 times a day. We will send him home with 1300mg of soda bicarbonate 4 times a day and advised to follow-up with nephrology. We will follow-up with basic electrolyte panel in 1 week. Urine culture showed evidence of E. coli - treated conservatively without antibiotic Right lower lobe pneumonia - He was continued to have mild dyspnea with productive cough and his saturation was 90% on room air. Chest x-ray did show evidence of increased marking in the right lower lobe possible pneumonia. Sputum culture was positive for Staph aureus (MSSA) and two gram negative rods. He was given IV ceftriaxone for 7 days. We will follow with repeat chest x-ray in 1 week. Allergies: Coded Allergies: erythromycin base (UNKNOWN 12/02/16) Disposition Summary Disposition Principal Diagnosis: Acute on chronic kidney disease bronchopneumonia right mid and lower lung Additional Diagnosis: History of HIV,AIDS, following Dr.Lydia Morocho in [place];[facility] ;last viral load undetectable and his CD4 count approximately 500, History of hepatitis C -treated with Harvoni History of hydronephrosis with a baseline creatinine 2.5 History of neurogenic bladder because of the encephalitis in childhood; doing straight cath 3 times a day History of chronic kidney disease Status post left BKA for MRSA osteomyelitis Discharge Disposition: home health services Discharge Instructions General Discharge Information Code Status: Full Code Patient's Diet: Regular diet Patient's Activity: As tolerated, take all fall precautions Follow-Up Instructions/Appts: Please follow-up with your PCP within a week of discharge. Please follow-up with the dispatch machine runner within 1-2 weeks of discharge. Please take the medication as advised. He need to check his renal function within a week of discharge. Medications at Discharge Discharge Medications: Continue taking these medications: Oxycodone HCl (Oxycodone HCl) 30 MG TABLET 1 Tablet ORAL Q4-6H as needed for PAIN Comments: NOT GIVEN IN HOSPITAL Abacavir Sulfate (Abacavir) 300 MG TABLET 1 Tablet ORAL DAILY Comments: Last Taken: 05/27/18 Time: 8AM Oxycodone HCl (Oxycontin) 40 MG TAB.ER.12H 1 Tablet ORAL TWICE DAILY Comments: NOT GIVEN IN HOSPITAL Dolutegravir Sodium (Tivicay) 50 MG TABLET 1 Tablet ORAL DAILY Comments: Last Taken: 05/27/18 Time: 8AM Alprazolam (Xanax) 0.5 MG TABLET 1 Tablet ORAL EVERY SIX HOURS NEEDED as needed for ANXIETY/SLEEP Comments: Last Taken: 05/20/18 Time: 12AM Trazodone HCl (Trazodone HCl) 100 MG TABLET 200 Milligram ORAL TAKE AT BEDTIME as needed for SLEEP Comments: NOT GIVEN IN HOSPITAL Albuterol Sulfate (Proair Hfa) 90 MCG HFA.AER.AD 2 Puff Inhale through mouth EVERY 4-6 HOURS NEEDED as needed for ASTHMA Comments: NOT GIVEN IN HOSPITAL Calcium Carbonate/Vitamin D3 (Calcium 500 + D Tablet) (Unknown Strength) TABLET Unknown Dose ORAL DAILY Comments: Last Taken: 05/20/18 Time: 1AM Gabapentin (Neurontin) 300 MG CAPSULE 1 Capsule ORAL TWICE DAILY Comments: Last Taken: 05/27/18 Time: 8AM Lactulose (Lactulose) 10 GRAM/15 ML SOLUTION 30 Milliliters ORAL Every Morning Comments: NOT GIVEN IN HOSPITAL Multiple Vitamin (Multivitamins) 1 EACH TABLET 1 Tablet ORAL DAILY Comments: NOT GIVEN IN HOSPITAL Dextran 70/Hypromellose (Artificial Tears) 1 EACH DROPERETTE 1 Drop Left Eye TWICE DAILY Comments: NOT GIVEN IN HOSPITAL Prednisolone Acetate (Omnipred) 1 % DROPS.SUSP 1 Drop Left Eye 4 TIMES A DAY Comments: NOT GIVEN IN HOSPITAL Folic Acid (Folic Acid) 1 MG TABLET 1 Milligram ORAL DAILY Qty = 30 Comments: NOT GIVEN IN HOSPITAL Thiamine HCl (Vitamin B-1) 100 MG TABLET 100 Milligram ORAL DAILY Qty = 30 Comments: NOT GIVEN IN HOSPITAL Potassium Chloride (Potassium Chloride) 20 MEQ TAB.ER.PRT 1 Tablet ORAL DAILY Qty = 3 Comments: Last Taken: 05/20/18 Time: 10 PM Start taking the following new medications: Sodium Bicarbonate (Sodium Bicarbonate) 650 MG TABLET 2 Tablet ORAL EVERY SIX HOURS Qty = 240 No Refills Instructions: . Comments: Last Taken: 05/27/18 Time: 6AM Copies To: Rashawn DEL VALLE,Di Sarah MD,Robert Bedolla Attending Review Statement Documenting Attending: Og DEL VALLE,Juwan Moe
--- NOTE | 2018-05-26 14:39 | PN- Infect Dx ---
Subjective Subjective: Afebrile without complaints. Objective Last 24 Hrs of Vital Signs/I&O Vital Signs Date Time Temp Pulse Resp B/P B/P Pulse O2 O2 Flow FiO2 Mean Ox Delivery Rate 05/26 1219 Room Air 05/26 0600 98.7 78 18 138/74 92 Room Air 05/25 2228 98.2 85 16 128/78 91 Room Air 05/25 2209 Room Air 05/25 1600 95 Room Air 05/25 1454 99.2 90 20 130/82 91 Room Air Intake & Output 05/26 1600 05/26 0800 05/26 0000 Intake Total 1000 500 Output Total 600 Balance 1000 -100 Intake, IV 1000 500 Output, Urine 600 Patient 186 lb Weight Weight Bed scale Measurement Method Physical Exam Other Physical Findings: He appears comfortable in no acute distress Mcgregor catheter remains in place The remainder of his exam is unchanged Results Last 24 Hours of Lab Results: Laboratory Tests 05/26 0615 Chemistry Sodium (137 - 145 mmol/L) 134 L Potassium (3.5 - 5.1 mmol/L) 4.5 Chloride (98 - 107 mmol/L) 112 H Carbon Dioxide (22 - 30 mmol/L) 14 L Anion Gap (5 - 16) 8 BUN (9 - 20 mg/dL) 52 H Creatinine (0.7 - 1.2 mg/dL) 4.2 H Estimated GFR (>60 ml/min) 15 L BUN/Creatinine Ratio (7 - 25 %) 12.4 Magnesium (1.6 - 2.3 mg/dL) 1.8 Hematology CBC w Diff NO MAN DIFF REQ WBC (4.8 - 10.8 /CUMM) 6.5 RBC (4.70 - 6.10 /CUMM) 2.90 L Hgb (14.0 - 18.0 G/DL) 9.2 L Hct (42 - 52 %) 27.0 L MCV (80.0 - 94.0 FL) 93.3 MCH (27.0 - 31.0 PG) 31.9 H MCHC (33.0 - 37.0 G/DL) 34.2 RDW (11.5 - 14.5 %) 15.8 H Plt Count (130 - 400 /CUMM) 74 L MPV (7.4 - 10.4 FL) 8.6 Gran % (42.2 - 75.2 %) 62.1 Lymphocytes % (20.5 - 51.1 %) 29.5 Monocytes % (1.7 - 9.3 %) 6.6 Eosinophils % (0 - 5 %) 1.6 Basophils % (0.0 - 2.0 %) 0.2 Absolute Granulocytes (1.4 - 6.5 /CUMM) 4.1 Absolute Lymphocytes (1.2 - 3.4 /CUMM) 1.9 Absolute Monocytes (0.10 - 0.60 /CUMM) 0.4 Absolute Eosinophils (0.0 - 0.7 /CUMM) 0.1 Absolute Basophils (0.0 - 0.2 /CUMM) 0 Last 24 Hours of Attila Results: No recent cultures Recent Imaging Studies: Chest x-ray May 25 reveals increased interstitial lung markings with no focal dense consolidation Assessment/Plan ID Impression: Stable, with his temperatures and white blood cell count remaining normal, on Ceftriaxone, Day 5 of treatment for a presumed right lower lobe pneumonia secondary to MSSA, Klebsiella and Serratia, with improvement in his respiratory status, now on room air, and with his repeat chest x-ray without any definite consolidation. His renal failure continues to slowly mprove. Of note he is on a self catheterization protocol at home and this can be resumed here, though the patient is reluctant. Suggestion: 1. Remove Mcgregor catheter if patient agreeable and resume straight catheterization 2. Continue Ceftriaxone
--- NOTE | 2018-05-26 14:56 | ULTRASOUND REPORT ---
EXAMINATION: US DUPLEX LOWER EXTREMITY ARTERY LIMITED, BILATERAL CLINICAL INFORMATION: 58-year-old male with pain in both legs. History of left leg amputation. COMPARISON: None TECHNIQUE: Grayscale and pulsed color Doppler imaging and spectral waveform analysis of lower extremities was performed. FINDINGS: RIGHT: The examined peripheral vessels have normal triphasic waveforms. No evidence of focal arterial stenosis or occlusion. No tardus parvus waveforms. Peak systolic velocity measurements (cm/sec) are as follows - Common femoral, 72 Profunda femoris, 79 SFA proximal, 83 SFA mid, 81 SFA distal, 77 Popliteal proximal, 72 Popliteal distal, 55 Posterior tibial, 80 Peroneal, 72 Dorsalis pedis, 57 LEFT: The examined peripheral vessels have normal triphasic waveforms. No evidence of focal arterial stenosis or occlusion. Peak systolic velocity measurements (cm/sec) are as follows - Common femoral, 99 Profunda femoris, 72 SFA proximal, 106 SFA mid, 92 SFA distal, 59 Popliteal and leg vessels - patient is status post leg amputation. IMPRESSION: No Doppler imaging evidence of hemodynamically significant arterial disease in the right and left lower extremities.
[2018-05-26 15:19] VITALS: BP 138/80
[2018-05-26 21:07] VITALS: BP 140/80
[2018-05-27 06:31] VITALS: BP 130/73
--- NOTE | 2018-05-27 07:05 | PN- Housestaff ---
Adan DEL VALLE,Renuka 05/27/18 0705: Subjective Follow-up For: Acute kidney injury, metabolic acidosis, bronchitis Complaints: no complaints Subjective: Patient was seen and examined at bedside. He is eager and anxious to go home today. He denies chest pain, palpitations, abdominal pain, nausea, vomiting. Review of Systems Constitutional: Reports: no symptoms. Objective Last 24 Hrs of Vital Signs/I&O Vital Signs Date Time Temp Pulse Resp B/P B/P Pulse O2 O2 Flow FiO2 Mean Ox Delivery Rate 05/27 08 Room Air 05/27 0631 97.7 82 20 130/73 97 Room Air 05/27 0000 Room Air 05/26 2107 97.6 75 20 140/80 96 05/26 1519 97.7 78 18 138/80 94 Room Air 05/26 1219 Room Air Intake & Output 05/27 1600 05/27 0800 05/27 0000 Intake Total 1000 1420 Output Total 1300 1700 875 Balance -1300 -700 545 Intake, IV 1000 620 Intake, Oral 800 Number 1 Bowel Movements Output, Urine 1300 1700 875 Patient 186 lb Weight Physical Exam General Appearance: Alert, Oriented X3, Cooperative, No Acute Distress Cardiovascular: Normal S1, Normal S2, No Murmurs Lungs: Clear to Auscultation Abdomen: Soft, No Tenderness, No Hepatospenomegaly Current Medications: Current Medications Sig/Puma Start time Last Medication Dose Route Stop Time Status Admin Abacavir Sulfate 300 MG BID 05/18 1315 AC 05/27 PO 0826 Albuterol Sulfate 2 PUF Q4-6 PRN PRN 05/18 1315 AC INH Calcitriol 0.25 MCG Q48 05/22 09 AC 05/26 PO 0922 Calcium Acetate 1,334 MG TID 05/19 1400 AC 05/27 PO 0826 Ceftriaxone Sodium 1,000 MG DAILY 05/21 1120 AC 05/27 IV 0826 Cholecalciferol 1,000 IU DAILY 05/20 2145 AC 05/27 PO 0826 Dolutegravir Sodium 50 MG DAILY 05/21 0900 AC 05/27 PO 0826 Guaifenesin 600 MG Q12 05/21 0900 AC 05/27 PO 0825 Hydromorphone HCl 2 MG Q6 05/25 1800 AC 05/26 PO 1856 Hydromorphone HCl 1 MG Q4P PRN 05/21 0845 AC 05/26 IV 2131 Lamivudine 50 MG DAILY 05/21 0900 AC 05/27 PO 0826 Magnesium Chloride 64 MG BID 05/23 2100 AC 05/27 PO 08 Magnesium Oxide 400 MG BID 05/24 1003 AC 05/27 PO 0825 Potassium Chloride 20 MEQ BID 05/24 1003 AC 05/26 PO 2131 Sodium Bicarbonate 1,300 MG Q6 05/25 1800 AC 05/27 PO 0624 Sodium Chloride 1,000 ML Q10H 05/20 1230 AC 05/27 IV 0336 Last 24 Hrs of Lab/Attila Results Last 24 Hrs of Labs/Mics: Laboratory Tests 05/27/18 0638: Anion Gap 9, Estimated GFR 15 L, BUN/Creatinine Ratio 12.1, Magnesium 2.0, CBC w Diff NO MAN DIFF REQ, RBC 3.01 L, MCV 93.9, MCH 32.9 H, MCHC 35.1, RDW 15.6 H, MPV 8.6, Gran % 64.6, Lymphocytes % 28.2, Monocytes % 4.9, Eosinophils % 2.0, Basophils % 0.3, Absolute Granulocytes 4.3, Absolute Lymphocytes 1.9, Absolute Monocytes 0.3, Absolute Eosinophils 0.1, Absolute Basophils 0 Assessment/Plan Assessment: Patient is a 58-year-old man with a multiple medical problem brought to the emergency room after episode of fall at home around 30 hours before the admission, leading to hematuria. Past medical history - * History of HIV,AIDS, following Dr.Lydia Morocho in [place];[facility];last viral load undetectable and his CD4 count approximately 500, * History of hepatitis C -treated with Harvoni * History of hydronephrosis with a baseline creatinine 2.5 * History of neurogenic bladder because of the encephalitis in childhood; doing straight cath 3 times a day * History of chronic kidney disease * Status post left BKA for MRSA osteomyelitis Problem list- Aspiration pneumonia/bronchopneumonia right mid and lower lung. Acute on chronic kidney disease Assessment and plan 1. Pneumonia/bronchitis-treated with 7 days of IV antibiotics. We will follow him off antibiotics. We will repeat chest x-ray in 1 week and follow-up with induction brazer. Referral to Dr. Velasquez given. 2. Patient's creatinine is 4.2 which is the same from yesterday. His bicarb has not improved since yesterday. Today's 13 in spite of being on 1300 every 6 sodium bicarbonate tablets. Unsure if patient is compliant with her medications. We will send him home with the same dose and follow-up with BP in 1 week. Referral to nuclear medical tech given. 3. Patient Mcgregor will be removed today. Patient will self catheterize him thrice day. 4. Discussed with case management and health aide as been arranged. 5. Plan for discharge today. Problem List: 1. Acute on chronic kidney failure Pain Ratin Pain Location: back Pain Goal: Remain pain free Pain Plan: OxyContin, Dilaudid Tomorrow's Labs & Rationales: none OgJuwan 05/27/18 1137: Attending MD Review Statement Attending Statement Attending MD Statement: examined this patient, discuss w/resident/PA/BASEBALL INSPECTOR AND REPAIRER, agreed w/resident/PA/BASEBALL INSPECTOR AND REPAIRER, reviewed EMR data (avail), discussed with nursing, discussed with case mgmt Attending Assessment/Plan: Acute kidney injury on CKD-seems to be resolving, creatinine is 4.2 today , same as yesterday. Encouraged pt to drink more water and avoid caffeine products. We will also continue the bicarbonate supplementation. Nephrology following pt closely. Nephr ok with discharging the pt today on bicarbonate supplements. Pneumonia-patient is currently on ceftriaxone. We will continue that for now and follow up on ID recommendations for dc. Ankle and leg pain rt leg- ankle xray was ok. arterial doppler rt lower extremity- not significant disease. d/w pt the care plan. pt lives independently at home. case management arranging home services prior to discharge today.
[2018-05-27 08:15] LABS: ABSOLUTE BASOPHIL COUNT 0 /CUMM (0.0-0.2); ABSOLUTE EOSINOPHIL COUNT 0.1 /CUMM (0.0-0.7); ABSOLUTE GRANULOCYTE CT 4.3 /CUMM (1.4-6.5); ABSOLUTE LYMPH COUNT 1.9 /CUMM (1.2-3.4); ABSOLUTE MONOCYTE COUNT 0.3 /CUMM (0.10-0.60); BASOPHIL % 0.3 % (0.0-2.0); GRANULOCYTE % 64.6 % (42.2-75.2); HEMATOCRIT 28.2 % (42-52); MEAN CORPUSCULAR HGB 32.9 PG (27.0-31.0); MEAN CORPUSCULAR HGB CONC 35.1 G/DL (33.0-37.0); MEAN CORPUSCULAR VOLUME 93.9 FL (80.0-94.0); MEAN PLATELET VOLUME 8.6 FL (7.4-10.4); PLATELET COUNT 76 /CUMM (130-400); RBC DISTRIBUTION WIDTH 15.6 % (11.5-14.5); RED BLOOD CELL CT 3.01 /CUMM (4.70-6.10); WHITE BLOOD CELL COUNT 6.7 /CUMM (4.8-10.8)
--- NOTE | 2018-05-27 11:27 | PN- Nephrology ---
Assessment/Plan Nephrology Assessment: Creatinine stable from yesterday but not back to baseline. Not clear if it will return there given ABDIRASHID and severe underlying ckd. Still acidotic and I wonder if he is effectively neutralizing the NaHCO3 with acidic dark sodas. Suggestion: Told him to curtain sodas, take pills with water. Being discharged and will need f/u in office. Discussed that he could need dialysis in near future. Subjective Subjective: Wants to go home today. No nausea or vomiting. Drink a lot of dark sodas. Objective Vital Signs and I&Os Vital Signs Date Time Temp Pulse Resp B/P B/P Pulse O2 O2 Flow FiO2 Mean Ox Delivery Rate 05/27 0800 Room Air 05/27 0631 97.7 82 20 130/73 97 Room Air 05/27 0000 Room Air 05/26 2107 97.6 75 20 140/80 96 05/26 1519 97.7 78 18 138/80 94 Room Air 05/26 1219 Room Air Intake & Output 05/27 1600 05/27 0400 05/26 1600 05/26 0400 05/25 1600 05/25 0400 Intake Total 1000 1420 2975 500 1935 600 Output Total 3000 875 3550 600 3800 1600 Balance -1999 545 -575 -100 -1865 -1000 Intake, IV 8305 614 6310 500 775 600 Intake, Oral 800 1100 1160 Number 1 Bowel Movements Output, Urine 3000 875 3550 600 3800 1600 Patient 186 lb 186 lb 189 lb Weight Weight Bed scale Bed scale Measurement Method Physical Exam: NAD VS as above Lungs: rhonchi bilaterally CV: no rub Abd: nontender Exts: no edema Neuro: A&O, no asterixis Current Medications: Current Medications Sig/Puma Start time Last Medication Dose Route Stop Time Status Admin Abacavir Sulfate 300 MG BID 05/18 1315 AC 05/27 PO 825 Albuterol Sulfate 2 PUF Q4-6 PRN PRN 05/18 131 AC INH Calcitriol 0.25 MCG Q48 05/22 09 AC 05/26 PO 0922 Calcium Acetate 1,334 MG TID 05/19 1400 AC 05/27 PO 825 Ceftriaxone Sodium 1,000 MG DAILY 05/21 1120 AC 05/27 IV 0826 Cholecalciferol 1,000 IU DAILY 05/20 2145 AC 05/27 PO 825 Dolutegravir Sodium 50 MG DAILY 05/21 0900 AC 05/27 PO 0826 Guaifenesin 600 MG Q12 05/21 0900 AC 05/27 PO 0825 Hydromorphone HCl 2 MG Q6 05/25 1800 AC 05/26 PO 1856 Hydromorphone HCl 1 MG Q4P PRN 05/21 0845 AC 05/26 IV 2131 Lamivudine 50 MG DAILY 05/21 0900 AC 05/27 PO 0826 Magnesium Chloride 64 MG BID 05/23 2100 AC 05/27 PO 0825 Magnesium Oxide 400 MG BID 05/24 1003 AC 05/27 PO 0825 Potassium Chloride 20 MEQ BID 05/24 1003 AC 05/26 PO 2131 Sodium Bicarbonate 1,300 MG Q6 05/25 1800 AC 05/27 PO 0624 Sodium Chloride 1,000 ML Q10H 05/20 1230 AC 05/27 IV 0336 Results Pertinent Lab Results: Laboratory Tests 05/27 05/26 0638 0615 Chemistry Sodium (137 - 145 mmol/L) 137 134 L Potassium (3.5 - 5.1 mmol/L) 4.7 4.5 Chloride (98 - 107 mmol/L) 115 H 112 H Carbon Dioxide (22 - 30 mmol/L) 13 L 14 L Anion Gap (5 - 16) 9 8 BUN (9 - 20 mg/dL) 51 H 52 H Creatinine (0.7 - 1.2 mg/dL) 4.2 H 4.2 H Estimated GFR (>60 ml/min) 15 L 15 L BUN/Creatinine Ratio (7 - 25 %) 12.1 12.4 Magnesium (1.6 - 2.3 mg/dL) 2.0 1.8 Hematology CBC w Diff NO MAN DIFF REQ NO MAN DIFF REQ WBC (4.8 - 10.8 /CUMM) 6.7 6.5 RBC (4.70 - 6.10 /CUMM) 3.01 L 2.90 L Hgb (14.0 - 18.0 G/DL) 9.9 L 9.2 L Hct (42 - 52 %) 28.2 L 27.0 L MCV (80.0 - 94.0 FL) 93.9 93.3 MCH (27.0 - 31.0 PG) 32.9 H 31.9 H MCHC (33.0 - 37.0 G/DL) 35.1 34.2 RDW (11.5 - 14.5 %) 15.6 H 15.8 H Plt Count (130 - 400 /CUMM) 76 L 74 L MPV (7.4 - 10.4 FL) 8.6 8.6 Gran % (42.2 - 75.2 %) 64.6 62.1 Lymphocytes % (20.5 - 51.1 %) 28.2 29.5 Monocytes % (1.7 - 9.3 %) 4.9 6.6 Eosinophils % (0 - 5 %) 2.0 1.6 Basophils % (0.0 - 2.0 %) 0.3 0.2 Absolute Granulocytes (1.4 - 6.5 /CUMM) 4.3 4.1 Absolute Lymphocytes (1.2 - 3.4 /CUMM) 1.9 1.9 Absolute Monocytes (0.10 - 0.60 /CUMM) 0.3 0.4 Absolute Eosinophils (0.0 - 0.7 /CUMM) 0.1 0.1 Absolute Basophils (0.0 - 0.2 /CUMM) 0 0 08/27 0605 Chemistry Sodium (137 - 145 mmol/L) 135 L Potassium (3.5 - 5.1 mmol/L) 3.9 Chloride (98 - 107 mmol/L) 112 H Carbon Dioxide (22 - 30 mmol/L) 14 L Anion Gap (5 - 16) 9 BUN (9 - 20 mg/dL) 56 H Creatinine (0.7 - 1.2 mg/dL) 4.8 H Estimated GFR (>60 ml/min) 12 L BUN/Creatinine Ratio (7 - 25 %) 11.7 Magnesium (1.6 - 2.3 mg/dL) 1.8 Hematology CBC w Diff NO MAN DIFF REQ WBC (4.8 - 10.8 /CUMM) 5.9 RBC (4.70 - 6.10 /CUMM) 2.84 L Hgb (14.0 - 18.0 G/DL) 9.0 L Hct (42 - 52 %) 26.5 L MCV (80.0 - 94.0 FL) 93.2 MCH (27.0 - 31.0 PG) 31.6 H MCHC (33.0 - 37.0 G/DL) 33.9 RDW (11.5 - 14.5 %) 15.7 H Plt Count (130 - 400 /CUMM) 68 L MPV (7.4 - 10.4 FL) 8.5 Gran % (42.2 - 75.2 %) 63.1 Lymphocytes % (20.5 - 51.1 %) 27.3 Monocytes % (1.7 - 9.3 %) 6.9 Eosinophils % (0 - 5 %) 2.3 Basophils % (0.0 - 2.0 %) 0.4 Absolute Granulocytes (1.4 - 6.5 /CUMM) 3.7 Absolute Lymphocytes (1.2 - 3.4 /CUMM) 1.6 Absolute Monocytes (0.10 - 0.60 /CUMM) 0.4 Absolute Eosinophils (0.0 - 0.7 /CUMM) 0.1 Absolute Basophils (0.0 - 0.2 /CUMM) 0
[2018-05-27] MEDS ORDERED: SODIUM BICARBO650 M1 PO ×4 (11:32→12:30)
--- NOTE | 2018-05-27 12:35 | PN- Infect Dx ---
Subjective Subjective: Afebrile without complaints Objective Last 24 Hrs of Vital Signs/I&O Vital Signs Date Time Temp Pulse Resp B/P B/P Pulse O2 O2 Flow FiO2 Mean Ox Delivery Rate 05/27 08 Room Air 05/27 0631 97.7 82 20 130/73 97 Room Air 05/27 0000 Room Air 05/26 2107 97.6 75 20 140/80 96 05/26 1519 97.7 78 18 138/80 94 Room Air Intake & Output 05/27 1600 05/27 0800 05/27 0000 Intake Total 1000 1420 Output Total 1300 1700 875 Balance -1300 -700 545 Intake, IV 1000 620 Intake, Oral 800 Number 1 Bowel Movements Output, Urine 1300 1700 875 Patient 186 lb Weight Physical Exam Other Physical Findings: He appears comfortable in no acute distress Lungs bibasilar rhonchi Heart regular rhythm with no murmur Results Last 24 Hours of Lab Results: Laboratory Tests 05/27 0638 Chemistry Sodium (137 - 145 mmol/L) 137 Potassium (3.5 - 5.1 mmol/L) 4.7 Chloride (98 - 107 mmol/L) 115 H Carbon Dioxide (22 - 30 mmol/L) 13 L Anion Gap (5 - 16) 9 BUN (9 - 20 mg/dL) 51 H Creatinine (0.7 - 1.2 mg/dL) 4.2 H Estimated GFR (>60 ml/min) 15 L BUN/Creatinine Ratio (7 - 25 %) 12.1 Magnesium (1.6 - 2.3 mg/dL) 2.0 Hematology CBC w Diff NO MAN DIFF REQ WBC (4.8 - 10.8 /CUMM) 6.7 RBC (4.70 - 6.10 /CUMM) 3.01 L Hgb (14.0 - 18.0 G/DL) 9.9 L Hct (42 - 52 %) 28.2 L MCV (80.0 - 94.0 FL) 93.9 MCH (27.0 - 31.0 PG) 32.9 H MCHC (33.0 - 37.0 G/DL) 35.1 RDW (11.5 - 14.5 %) 15.6 H Plt Count (130 - 400 /CUMM) 76 L MPV (7.4 - 10.4 FL) 8.6 Gran % (42.2 - 75.2 %) 64.6 Lymphocytes % (20.5 - 51.1 %) 28.2 Monocytes % (1.7 - 9.3 %) 4.9 Eosinophils % (0 - 5 %) 2.0 Basophils % (0.0 - 2.0 %) 0.3 Absolute Granulocytes (1.4 - 6.5 /CUMM) 4.3 Absolute Lymphocytes (1.2 - 3.4 /CUMM) 1.9 Absolute Monocytes (0.10 - 0.60 /CUMM) 0.3 Absolute Eosinophils (0.0 - 0.7 /CUMM) 0.1 Absolute Basophils (0.0 - 0.2 /CUMM) 0 Last 24 Hours of Attila Results: No recent cultures Recent Imaging Studies: Arterial Dopplers of both lower extremities May 26 negative for any hemodynamically significant arterial disease Assessment/Plan ID Impression: Stable, with his temperatures and white blood cell count remaining normal, on Ceftriaxone, Day 6 of treatment for a presumed right lower lobe pneumonia secondary to MSSA, Klebsiella and Serratia, with improvement in his respiratory status and with his repeat chest x-ray without any definite consolidation. His renal failure has improved overall, though unchanged from yesterday. His Mcgregor catheter has been removed and he will resume his self catheterization protocol. Suggestion: 1. Resume self-catheterization protocol 2. Discontinue Ceftriaxone after today's dose and follow off antibiotics
--- NOTE | 2018-05-27 13:13 | PN- Pulmonary ---
Subjective HPI/Critical Care Issues: pt seen and examined no longer having any abdomina discomfort breathing at baseline no cough no duncan no cp Objective Current Medications: Current Medications Sig/Puma Start time Last Medication Dose Route Stop Time Status Admin Abacavir Sulfate 300 MG BID 05/18 1315 AC 05/27 PO 0826 Albuterol Sulfate 2 PUF Q4-6 PRN PRN 05/18 1315 AC INH Calcitriol 0.25 MCG Q48 05/22 0900 AC 05/26 PO 0922 Calcium Acetate 1,334 MG TID 05/19 1400 AC 05/27 PO 0826 Ceftriaxone Sodium 1,000 MG DAILY 05/21 1120 AC 05/27 IV 0826 Cholecalciferol 1,000 IU DAILY 05/20 2145 AC 05/27 PO 0826 Dolutegravir Sodium 50 MG DAILY 05/21 0900 AC 05/27 PO 0826 Guaifenesin 600 MG Q12 05/21 0900 AC 05/27 PO 0825 Hydromorphone HCl 2 MG Q6 05/25 1800 AC 05/26 PO 1856 Hydromorphone HCl 1 MG Q4P PRN 05/21 0845 AC 05/26 IV 2131 Lamivudine 50 MG DAILY 05/21 0900 AC 05/27 PO 0826 Magnesium Chloride 64 MG BID 05/23 2100 AC 05/27 PO 0825 Magnesium Oxide 400 MG BID 05/24 1003 AC 05/27 PO 0825 Potassium Chloride 20 MEQ BID 05/24 1003 AC 05/26 PO 2131 Sodium Bicarbonate 1,300 MG Q6 05/25 1800 AC 05/27 PO 0624 Sodium Chloride 1,000 ML Q10H 05/20 1230 AC 05/27 IV 0336 Vital Signs & I&O Last 24 Hrs of Vitals and I&O: Vital Signs Date Time Temp Pulse Resp B/P B/P Pulse O2 O2 Flow FiO2 Mean Ox Delivery Rate 05/27 0800 Room Air 05/27 0631 97.7 82 20 130/73 97 Room Air 05/27 0000 Room Air 05/26 2107 97.6 75 20 140/80 96 05/26 1519 97.7 78 18 138/80 94 Room Air Intake & Output 05/27 1600 05/27 0800 05/27 0000 Intake Total 1000 1420 Output Total 1300 1700 875 Balance -1300 -700 545 Intake, IV 1000 620 Intake, Oral 800 Number 1 Bowel Movements Output, Urine 1300 1700 875 Patient 186 lb Weight Exam Other Physical Findings: gen-aaox3 heent-ncat, room air cvs-s1,s2 lungs-rare rhonchi much improved abd-soft,bs+ ext-left bka Results Last 24 Hrs of Lab Results: Laboratory Tests 05/27/18 0638: Anion Gap 9, Estimated GFR 15 L, BUN/Creatinine Ratio 12.1, Magnesium 2.0, CBC w Diff NO MAN DIFF REQ, RBC 3.01 L, MCV 93.9, MCH 32.9 H, MCHC 35.1, RDW 15.6 H, MPV 8.6, Gran % 64.6, Lymphocytes % 28.2, Monocytes % 4.9, Eosinophils % 2.0, Basophils % 0.3, Absolute Granulocytes 4.3, Absolute Lymphocytes 1.9, Absolute Monocytes 0.3, Absolute Eosinophils 0.1, Absolute Basophils 0 Impression/Plan Impression/Plan Impression/Plan: Impression 58 year old man * R mid/lower lung field opacification - sputum with Klebsiella pneumoniae, Serratia Marcescens, MSSA * acute on chronic renal failure * hx of HIV * hx of recurrent UTI's * s/p fall * hx of left BKA Plan -can repeat cxr pa/lateral on an outpatient basis with myself or PMD - 6 weeks -continue to f/u ID recommendations -incentive spirometry -oob as tolerated DVT prophylaxis at all times Discharge planning - patient voicing preference for discharge
== END 2018-05-27 14:43 | disposition home health service (06) | DRG 682 ==
LOC: ERH 06:49 → CRI 10:38 → 1NO 10:38 → ERHI 10:38 → CANRESERV 11:23 → ENRESERV 11:23 → ENTRNSPT 12:55 → EDTRNSPTSTS 13:04 → EDTRNSPT 13:04 → CRI 13:07 → CMPTRNSPT 13:19 → ENTRNSPT 05-22 10:03 → EDTRNSPTSTS 05-22 10:08 → EDTRNSPT 05-22 10:16 → CMPTRNSPT 05-22 10:40 → 1NO 05-22 10:49 → ENTRNSPT 05-22 17:20 → EDTRNSPTSTS 05-22 17:37 → EDTRNSPT 05-22 17:37 → CMPTRNSPT 05-22 17:55 → 1NO 05-24 09:05 → ENPENDDIS 05-27 12:30 → 1NO 05-27 14:43
PROVIDERS: Emergency Medicine; Internal Medicine Adolescent Medicine; Student in an Organized Health Care Education/Training Program
DX: N17.9 Acute kidney failure, unspecified (principal); B20 Human immunodeficiency virus [HIV] disease; J15.211 Pneumonia due to Methicillin susceptible Staphylococcus aureus; E87.2 Acidosis; E87.1 Hypo-osmolality and hyponatremia; I12.9 Hypertensive chronic kidney disease with stage 1 through stage 4 chronic kidney disease, or unspecified chronic kidney disease; N18.3 Chronic kidney disease, stage 3 (moderate); B18.2 Chronic viral hepatitis C; N31.8 Other neuromuscular dysfunction of bladder; N39.498 Other specified urinary incontinence; I95.9 Hypotension, unspecified; D69.6 Thrombocytopenia, unspecified; E83.51 Hypocalcemia; E87.6 Hypokalemia; L89.322 Pressure ulcer of left buttock, stage 2; R23.8 Other skin changes; B96.1 Klebsiella pneumoniae [K. pneumoniae] as the cause of diseases classified elsewhere; W18.30XA Fall on same level, unspecified, initial encounter; Y92.002 Bathroom of unspecified non-institutional (private) residence as the place of occurrence of the external cause; Z88.1 Allergy status to other antibiotic agents; Z79.891 Long term (current) use of opiate analgesic; Z79.51 Long term (current) use of inhaled steroids; Z79.52 Long term (current) use of systemic steroids; F41.9 Anxiety disorder, unspecified; F17.210 Nicotine dependence, cigarettes, uncomplicated; B96.89 Other specified bacterial agents as the cause of diseases classified elsewhere; B96.20 Unspecified Escherichia coli [E. coli] as the cause of diseases classified elsewhere
CPT/HCPCS: 1NP; 84133; 84300; CCU; 36415; 36592; 71045; 71046; 72100; 73502-RT; 73610-RT; 76775; 81001; 82436; 82570; 87040; 87070; 87086; 87147; 93005; 93010; 93306; 97110-GO; 97116-GO; 97161-GP; 97530-GO; J0610; J0696; J1644; J1940; J3250; J3370; J3490; J7040; J7060

== ENCOUNTER 2018-06-02 13:51 | Inpatient (IN) | payer OTHER, MEDICARE ==
[~2018-06-02] VITALS: Ht 193 cm; Wt 85.0 kg
[~2018-06-02 13:51] MED LIST changes: +SODIUM BICARBO650 M1 PO
--- NOTE | 2018-06-02 14:06 | ED GENERAL ADULT ---
History of Present Illness General Chief Complaint: General Adult Stated Complaint: BIBA FOR "CROTCH PAIN" AND SOB Source: patient Exam Limitations: no limitations Vital Signs & Intake/Output Vital Signs & Intake/Output Vital Signs Date Time Temp Pulse Resp B/P B/P Pulse O2 O2 Flow FiO2 Mean Ox Delivery Rate 06/03 631 97.5 74 18 130/74 94 Room Air 06/03 0000 Room Air 06/02 2348 97.5 67 18 130/78 96 Room Air 06/02 2125 97.5 76 18 147/65 97 Room Air 06/02 1826 Room Air 06/02 1652 98.1 74 18 121/63 97 Room Air 06/02 1629 95 Room Air ED Intake and Output 06/03 0000 06/02 1200 Intake Total 240 Output Total 200 Balance 40 Intake, Oral 240 Output, Urine 200 Patient 220 lb Weight Weight Estimated Measurement Method Allergies Coded Allergies: erythromycin base (UNKNOWN 12/02/16) Reconcile Medications Abacavir Sulfate (Abacavir) 300 MG TABLET 1 TAB PO DAILY ANTIVIRAL (Reported) Albuterol Sulfate (Proair Hfa) 90 MCG HFA.AER.AD 2 PUF INH Q4-6 PRN PRN ASTHMA (Reported) Alprazolam (Xanax) 0.5 MG TABLET 1 TAB PO Q6P PRN ANXIETY/SLEEP (Reported) Calcium Carbonate/Vitamin D3 (Calcium 500 + D Tablet) (Unknown Strength) TABLET (Unknown Dose) PO DAILY SUPPLEMENT (Reported) Dextran 70/Hypromellose (Artificial Tears) 1 EACH DROPERETTE 1 GTT OS BID OCULAR (Reported) Dolutegravir Sodium (Tivicay) 50 MG TABLET 1 TAB PO DAILY HIV (Reported) Folic Acid 1 MG TABLET 1 MG PO DAILY VITAMIN DEFICIENCY Gabapentin (Neurontin) 300 MG CAPSULE 1 CAP PO BID NEUROPATHY (Reported) Lactulose 10 GRAM/15 ML SOLUTION 30 ML PO QAM ENCEPHALOPATHY (Reported) Multiple Vitamin (Multivitamins) 1 EACH TABLET 1 TAB PO DAILY SUPPLEMENT ( Reported) Oxycodone HCl 30 MG TABLET 1 TAB PO Q4-6H PRN PAIN (Reported) Oxycodone HCl (Oxycontin) 40 MG TAB.ER.12H 1 TAB PO BID CHRINIC PAIN ( Reported) Potassium Chloride 20 MEQ TAB.ER.PRT 1 TAB PO DAILY Hypokalemia Prednisolone Acetate (Omnipred) 1 % DROPS.SUSP 1 GTT OS 4 TIMES/DAY OCULAR ( Reported) Sodium Bicarbonate 650 MG TABLET 2 TAB PO Q6 acidosis/ABDIRASHID . Thiamine HCl (Vitamin B-1) 100 MG TABLET 100 MG PO DAILY VITAMIN DEFICIENCY Trazodone HCl 100 MG TABLET 200 MG PO QHS PRN SLEEP (Reported) Triage Nurses Notes Reviewed? yes HPI: This is a 58-year-old male with history of HIV, hepatitis C, CKD, left-sided below-knee amputation, presenting to the emergency department with left inner thigh pain. Patient states that the pain has been progressive for about 1 day. Mild to moderate in intensity. Worse with movement. No associated fever, chills, shortness of breath. Patient states that he fell coming out of the shower about 10 days ago and may have "tweaked it". He has no new leg swelling or edema. (Layton Lagunas MD) Past History Travel History Traveled to [place] past 21 day No Medical History Any Pertinent Medical History? 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 No (Layton Lagunas MD) Review of Systems Review of Systems Constitutional: Reports: see HPI. EENTM: Reports: no symptoms. Respiratory: Reports: no symptoms. Cardiovascular: Reports: no symptoms. GI: Reports: no symptoms. Genitourinary: Reports: no symptoms. Musculoskeletal: Reports: see HPI. Skin: Reports: no symptoms. Neurological/Psychological: Reports: no symptoms. Hematologic/Endocrine: Reports: no symptoms. Immunologic/Allergic: Reports: no symptoms. (Layton Lagunas MD) Physical Exam Physical Exam General Appearance: well developed/nourished, no apparent distress, awake Head: atraumatic, normal appearance Eyes: Bilateral: normal appearance, PERRL, EOMI. Ears, Nose, Throat: normal pharynx, normal ENT inspection, hearing grossly normal Neck: normal inspection, supple, full range of motion Respiratory: normal breath sounds, chest non-tender, no respiratory distress Cardiovascular: regular rate/rhythm, normal peripheral pulses Gastrointestinal: soft, non-tender Rectal: deferred Back: normal inspection, normal range of motion Extremities: normal inspection, normal capillary refill, normal range of motion Comments: Patient has minimal tenderness to the right inner thigh. He has mild pain with internal and external rotation of the hip as well as abduction of the right leg. No obvious skin changes. No swelling or tenderness or crepitus or skin changes to the perineum. No testicular swelling or tenderness. Core Measures ACS in differential dx? No CVA/TIA Diagnosis: No Sepsis Present: No Sepsis Focused Exam Completed? No (Bebo DEL VALLE,Layton) Progress Differential Diagnoses I considered the following diagnoses in my evaluation of the patient: Clinically suspect pulled groin/musculoskeletal sprain in this patient based on exam, history, and presentation. Mild concern for occult fracture which had previously been on identified secondary to patient being nonweightbearing. Mild concern also for DVT given chronic wheelchair status. Low suspicion for necrotizing fasciitis or other deep tissue infectious process at this time. Doubt acute cardiopulmonary presentation given lack of suggestive symptoms or signs on exam. Plan of Care: Orders Procedure Date/time Status Nothing by Mouth 06/03 B Active BASIC ELECTROLYTES PLUS BUN&CR 06/03 1400 Active MISSING MEDICATION FORM 06/03 1246 Active Change service to 06/03 0725 Active SERUM OSMOLALITY 06/03 0701 Complete CREATINE PHOSPHOKINASE 06/03 0701 Complete URINE PROTEIN ELECTROPHOR Ref$ 06/03 0600 Active CBC WITHOUT DIFFERENTIAL 06/03 0600 Complete BASIC ELECTROLYTES PLUS BUN&CR 06/03 0600 Complete URINE LYTES, SPOT 06/03 0248 Complete SERUM PROTEIN ELECTR. Ref$ 06/03 0248 Active COMPLEMENT C4 06/03 0248 Active COMPLEMENT C3 06/03 0248 Active Code Status 06/03 0055 Active US-RENAL/KIDNEY 06/03 UNK Active Lab Add-on Test 06/03 UNK Active Mcgregor, Insertion/Removal/Asses 06/03 UNK Active Skin/Pressure Ulcer Assess (Sk 06/02 2349 Active Vital Signs 06/02 233 Active Teach/Educate 06/02 2339 Active Pain Treatment and Response 06/02 2339 Active Nutritional Intake, Monitor 06/02 2339 Active Isolation 06/02 2339 Active Intake & Output 06/02 2339 Active Patient Care Conference 06/02 233 Active Activity/Ambulation 06/02 2339 Active Pathway - chart 06/02 2137 Active House Staff 06/02 2137 Active Patient Data 06/02 2137 Active Code Status 06/[address] in observation 06/02 2108 Active Vital Signs 06/02 2108 Active Code Status 06/02 2108 Complete PHOSPHORUS 06/02 1858 Complete Straight Cath 06/02 182 Active URINALYSIS 06/02 182 Complete COMPREHENSIVE METABOLIC PANEL 06/02 182 Complete CBC WITHOUT DIFFERENTIAL 06/02 182 Complete EKG 06/02 182 Active Intake & Output 06/02 1659 Active VTE Mechanical Prophylaxis 06/02 UNK Active Current Medications Sig/Puma Start time Last Medication Dose Stop Time Status Admin Sodium Bicarbonate 150 MEQ Q10H 06/03 2200 AC (Sodium Bicarbonate 8.4%) Dextrose/Water 1,000 ML (D5W 1000) Sevelamer HCl 1,600 MG WM 06/03 1200 AC 06/03 (Renagel) 1327 Abacavir Sulfate 300 MG DAILY 06/03 900 AC 06/03 (Ziagen 300MG) 0931 Docusate Sodium 100 MG DAILY 06/03 900 AC 06/03 (Colace) 0930 Dolutegravir Sodium 50 MG DAILY 06/03 0900 AC 06/03 (Tivicay) 0931 Folic Acid 1 MG DAILY 06/03 900 AC 06/03 (Folic Acid) 0930 Gabapentin 300 MG BID 06/03 09 AC 06/03 (Neurontin) 0929 Lactulose 20 GM DAILY 06/03 09 AC (Enulose 20GM/30ML) Multivitamins 1 TAB DAILY 06/03 900 AC 06/03 Therapeutic 0929 (Theragran-M Vitamins Tabs) Polyethylene Glycol 17 GM DAILY 06/03 900 AC (Miralax) Senna 187 MG DAILY 06/03 0900 AC 06/03 (Senokot) 0929 Thiamine HCl 100 MG DAILY 06/03 09 AC 06/03 (Vitamin B1) 0929 Dextrose/Sodium 1,000 ML Q13H 06/03 0600 AC 06/03 Chloride 0551 (D5W-1/2 Normal Saline 1000ML) Heparin Sodium 5,000 UNIT Q8 06/03 0600 AC 06/03 (Porcine) 1329 Sodium Bicarbonate 1,300 MG Q6 06/03 0030 AC 06/03 (Sodium Bicarb 325MG 1254 Tab) Morphine Sulfate 2 MG Q4P PRN 06/02 234 AC 06/03 (MORPHINE SULFATE) 0950 Oxycodone/ 1 TAB Q6P PRN 06/02 234 AC Acetaminophen (Percocet) Trazodone HCl 200 MG QPM PRN 06/02 234 AC (Desyrel) Acetaminophen 650 MG Q6P PRN 06/02 2145 AC (Tylenol) Laboratory Tests 06/03/18 1403: Sodium Pending, Potassium Pending, Chloride Pending, Carbon Dioxide Pending, Anion Gap Pending, BUN Pending, Creatinine Pending, BUN/Creatinine Ratio Pending 06/03/18 0701: Anion Gap 11, Estimated GFR 7 L, BUN/Creatinine Ratio 8.2, Serum Osmolality 316 H, Creatine Kinase 118, CBC w Diff NO MAN DIFF REQ, RBC 2.56 L, MCV 95.0 H, MCH 34.6 H, MCHC 36.5, RDW 15.2 H, MPV 7.4, Gran % 55.4, Lymphocytes % 35.7, Monocytes % 6.2, Eosinophils % 2.0, Basophils % 0.7, Absolute Granulocytes 2.4, Absolute Lymphocytes 1.6, Absolute Monocytes 0.3, Absolute Eosinophils 0.1, Absolute Basophils 0 06/03/18 0645: Ur Random Creatinine 41.2, Ur Random Sodium 73, Ur Random Potassium 25.6, Fraction Sodium Excret 9.9 H 06/03/18 0340: Prot Electrophoresis Pending, Total Protein (PEP) Pending, Albumin % (PEP) Pending, Dbdim-6-Emkkptbhq Pending, Zbqch-6-Jjjzadqac Pending, Zrrs-0-Cwepyamp Pending, Qpzn-7-Gfqkkebr Pending, Gamma Globulins Pending, Abnorm Protein Band 1 Pending, Abnorm Protein Band 2 Pending, Abnorm Protein Band 3 Pending, Complement C3 Pending, Complement C4 Pending 06/02/18 2153: Urine Color YEL, Urine Clarity TURBD H, Urine pH 6.0, Ur Specific Moroni 1.025 , Urine Protein 100 H, Urine Ketones TRACE H, Urine Nitrite POS H, Urine Bilirubin NEG, Urine Urobilinogen 0.2, Ur Leukocyte Esterase LARGE H, Ur Microscopic SEDIMENT EXAMINED, Urine RBC 15-25 H, Urine WBC PACKD H, Ur Epithelial Cells FEW, Urine Bacteria PACKD H, Urine Mucus FEW, Urine Hemoglobin LARGE H, Urine Glucose 250 H 06/02/18 1858: Anion Gap 13, Estimated GFR 7 L, BUN/Creatinine Ratio 8.7, Glucose 103 H, Calcium 7.0 L, Phosphorus 9.1 H, Total Bilirubin 0.5, AST 29, ALT 19 L, Alkaline Phosphatase 126, Total Protein 7.7, Albumin 3.0 L, Globulin 4.7 H, Albumin/Globulin Ratio 0.6 L, CBC w Diff NO MAN DIFF REQ, RBC 2.76 L, MCV 96.4 H, MCH 34.4 H, MCHC 35.7, RDW 15.6 H, MPV 7.8, Gran % 57.5, Lymphocytes % 35.2, Monocytes % 5.6, Eosinophils % 1.0, Basophils % 0.7, Absolute Granulocytes 2.7, Absolute Lymphocytes 1.7, Absolute Monocytes 0.3, Absolute Eosinophils 0, Absolute Basophils 0 Plan for x-ray of right hip, duplex right lower extremity, reassessment, likely discharge home with return precautions and follow-up instructions. IMPRESSION: 1. Subtle nondisplaced fracture along the right superior pubic ramus which extends into the acetabulum addition to a minimally displaced fracture of the right inferior pubic ramus. There is no fracture of the right femur identified. 2. Diffuse bladder wall thickening. There is a nonspecific finding. This may be secondary to bladder outlet obstruction or other etiology. Direct inspection may be warranted. 3. Prominent stool burden throughout the colon, particularly the rectal vault. Pain controlled with 2 mg of morphine. Labs also reveal ABDIRASHID. Patient admitted to obs status under the hospitalist. Initial ED EKG: none (Layton Lagunas MD) Departure Departure Time of Disposition: 2207 Disposition: STILL A PATIENT Condition: Stable Clinical Impression Primary Impression: Right groin pain Referrals: Radha Morocho MD (PCP/Family) Departure Forms: Customer Survey General Discharge Information Observation Note Spoke With: Manny Jenkins MD Place Patient In: Non-ED OBS Care Area Rationale for Observation: My rational for observation is as follows kidney function monitoring, pain control for pelvic fracture, orthopedic assessment, IV fluids, reassessment. (Layton Lagunas MD) Resident Co-Sign Statement Statement: ED Attending supervision documentation- [] I saw and evaluated the patient. I have also reviewed all the pertinent lab results and diagnostic results. I agree with the findings and the plan of care as documented in the Resident's documentation. [x] I have reviewed the ED Record and agree with the Resident's documentation. [] Additions or exceptions (if any) to the Resident's note and plan are summarized below: [] (Kali DEL TORO,Elvis Bedolla) Critical Care Note Critical Care Note Critical Care Time: non-applicable (Bebo DEL VALLE,Layton)
--- NOTE | 2018-06-02 16:22 | RADIOLOGY REPORT ---
EXAMINATION: XR ABDOMEN WITH PA CHEST CLINICAL INDICATION: Right groin pain following fall. Concern for hip fracture. COMPARISON: Chest x-ray dated 05/25/2018. Lumbar spine films dated 05/18/2018. CT scan of the abdomen and pelvis dated 07/27/2007. TECHNIQUE: AP views of the chest and abdomen performed on 3 images. FINDINGS: CHEST X-RAY: The cardiomediastinal silhouette is borderline normal in size. Lungs bilaterally are symmetrically expanded. Improvement in the previously seen left basilar linear opacities are seen, consistent with improved aeration and decreased atelectasis. There is also improved reticular opacity in the right mid and lower lung, though residual densities remain. Findings may represent an improving/resolving pneumonia. No significant effusion or pneumothorax is seen. Bony structures are unremarkable. ABDOMEN: Large amount of fecal material is seen throughout the colon with no abnormal distention of bowel loops seen. No evidence of bowel perforation. There is a rounded density seen projected over the lower pelvis, likely representing a mildly distended urinary bladder. A TENS unit is seen projected over the mid lumbar spine and a unilateral right-sided L4-5 fusion vipin and interlocking screws is seen. Moderate degenerative changes are seen in the lower lumbar spine. The hips bilaterally are incompletely included and difficult to evaluate. Prominent degenerative change with marked superior joint space narrowing, acetabular roof sclerosis and spurring and cystic changes across both sides of the right and left hip joint are noted. A peripherally rim calcified ovoid structure is seen in the left mid pelvis, unchanged from prior exam, shown to be a peripherally rim calcified diverticulum on prior CT scan. IMPRESSION: 1. Improving bibasilar opacities, likely representing improving right lower lung pneumonia and left lower lung atelectasis. 2. Large amount of fecal material throughout the colon. No evidence of bowel obstruction or perforation. 3. Hip joints bilaterally suboptimally assessed on these images. There appear to be moderate degenerative changes in both hips. Recommend dedicated hip films to more fully assess the hips.
--- NOTE | 2018-06-02 16:47 | ULTRASOUND REPORT ---
EXAMINATION: US TRIPLEX LOWER EXTREMITY, RIGHT CLINICAL INFORMATION: This is a 58-year-old male with right leg pain. Status post fall. COMPARISON: None TECHNIQUE: Color-flow triplex imaging with spectral analysis and compression Doppler were performed on the lower extremity. FINDINGS: Respiratory variation, normal compression and augmented flow are noted throughout the lower extremity. The visualized common femoral vein, superficial femoral vein, profunda femoral vein, popliteal vein and midcalf peroneal and posterior tibial venous segments show no evidence of deep venous thrombosis. There is no Lugo's cyst. IMPRESSION: No evidence of deep venous thrombosis involving the lower extremity.
--- NOTE | 2018-06-02 17:31 | RADIOLOGY REPORT ---
EXAMINATION: XR HIP, RIGHT CLINICAL INFORMATION: Right hip pain. Presumptive diagnosis of right hip fracture. COMPARISON: Right hip films dated 05/18/2018. CT scan of the abdomen and pelvis dated 07/27/2007. TECHNIQUE: Two views of the right hip performed on 3 images. FINDINGS: Evaluation is limited given degree of osteopenia. No definite acute fracture or dislocation. Severe degenerative joint space narrowing seen in the superior joint space with associated mild acetabular roof spurring. Prominent lucency in the right femoral head neck region is seen, likely representing extensive bone demineralization with superimposition of the heterotopic bone in the soft tissues posterior to the femoral neck as seen on the CT scan from 07/27/2007. Small enthesopathic change seen adjacent to the greater trochanter. IMPRESSION: Difficult exam given degree of osteopenia and given the degenerative change in the right hip joint and heterotopic bone in the soft tissues posterior to the femoral neck. No definite fracture seen on plain film. If clinical suspicion for hip fracture is high, consider additional assessment with CT scan of the right hip.
[2018-06-02 19:13] LABS: ABSOLUTE BASOPHIL COUNT 0 /CUMM (0.0-0.2); ABSOLUTE EOSINOPHIL COUNT 0 /CUMM (0.0-0.7); ABSOLUTE GRANULOCYTE CT 2.7 /CUMM (1.4-6.5); ABSOLUTE LYMPH COUNT 1.7 /CUMM (1.2-3.4); ABSOLUTE MONOCYTE COUNT 0.3 /CUMM (0.10-0.60); BASOPHIL % 0.7 % (0.0-2.0); GRANULOCYTE % 57.5 % (42.2-75.2); HEMATOCRIT 26.6 % (42-52); MEAN CORPUSCULAR HGB 34.4 PG (27.0-31.0); MEAN CORPUSCULAR HGB CONC 35.7 G/DL (33.0-37.0); MEAN CORPUSCULAR VOLUME 96.4 FL (80.0-94.0); MEAN PLATELET VOLUME 7.8 FL (7.4-10.4); RBC DISTRIBUTION WIDTH 15.6 % (11.5-14.5); RED BLOOD CELL CT 2.76 /CUMM (4.70-6.10); WHITE BLOOD CELL COUNT 4.8 /CUMM (4.8-10.8)
--- NOTE | 2018-06-02 19:13 | CT SCAN REPORT ---
EXAMINATION: CT PELVIS WITHOUT CONTRAST CLINICAL INFORMATION: Right hip pain following colon. Concern for occult fracture. COMPARISON: Same day hip radiographs TECHNIQUE: Helical scanning was performed with submillimeter collimation through the pelvis. Sagittal and coronal multiplanar 2-D reconstructions were obtained. DLP: 916 mGy-cm FINDINGS: Subtle nondisplaced fracture along the right superior pubic ramus which extends into the acetabulum. There is a minimally displaced fracture of the right inferior pubic ramus. No evidence of right hip fracture. Diffuse osteopenia. Incompletely visualized surgical changes of the lumbar spine. Asymmetrical lucencies of the bilateral iliac bones are nonspecific but potentially represent donor sites from prior surgery. Clinical correlation recommended. Visualized loops of small and large bowel are normal in caliber. Mild to moderate stool burden throughout visualized loops of colon. The bladder demonstrates diffuse wall thickening. Shotty inguinal lymph nodes. IMPRESSION: 1. Subtle nondisplaced fracture along the right superior pubic ramus which extends into the acetabulum addition to a minimally displaced fracture of the right inferior pubic ramus. There is no fracture of the right femur identified. 2. Diffuse bladder wall thickening. There is a nonspecific finding. This may be secondary to bladder outlet obstruction or other etiology. Direct inspection may be warranted. 3. Prominent stool burden throughout the colon, particularly the rectal vault.
[2018-06-02 19:42] LABS: PLATELET COUNT 125 /CUMM (130-400)
--- NOTE | 2018-06-02 21:37 | History & Physical ---
Annamarie Vickers 06/02/18 2136: General Information and HPI MD Statement: I have seen and personally examined DEIRDRE STEINER Js FRANCO and documented this H&P. The patient is a 58 year old M who presented with a patient stated chief complaint of [right groin pain 1 day]. Source of Information: patient Exam Limitations: no limitations History of Present Illness: 58-year-old man with past medical history of HCV status post Harvoni, HIV on HAART, CKD with baseline creatinine around 2, left BKA for MRSA osteomyelitis, neurogenic bladder status post fusion surgery, chronic low back pain, anxiety, asthma who presented to the emergency department for evaluation of severe right groin pain. The patient states that in the morning he woke up and was ambulating in his wheelchair when suddenly he started having severe pain in his right groin. The pain was sharp and radiating to the right thigh and leg. The pain was worse on moving. He did not take any pain medications before he came to the emergency department. Of note the patient was seen at [facility] and discharged on 2817 after being evaluated for a fall an acute injury and injury. Allergies/Medications Allergies: Coded Allergies: erythromycin base (UNKNOWN 12/02/16) Home Med list Abacavir Sulfate (Abacavir) 300 MG TABLET 1 TAB PO DAILY ANTIVIRAL (Reported) Albuterol Sulfate (Proair Hfa) 90 MCG HFA.AER.AD 2 PUF INH Q4-6 PRN PRN ASTHMA (Reported) Alprazolam (Xanax) 0.5 MG TABLET 1 TAB PO Q6P PRN ANXIETY/SLEEP (Reported) Calcium Carbonate/Vitamin D3 (Calcium 500 + D Tablet) (Unknown Strength) TABLET (Unknown Dose) PO DAILY SUPPLEMENT (Reported) Dextran 70/Hypromellose (Artificial Tears) 1 EACH DROPERETTE 1 GTT OS BID OCULAR (Reported) Dolutegravir Sodium (Tivicay) 50 MG TABLET 1 TAB PO DAILY HIV (Reported) Folic Acid 1 MG TABLET 1 MG PO DAILY VITAMIN DEFICIENCY Gabapentin (Neurontin) 300 MG CAPSULE 1 CAP PO BID NEUROPATHY (Reported) Lactulose 10 GRAM/15 ML SOLUTION 30 ML PO QAM ENCEPHALOPATHY (Reported) Multiple Vitamin (Multivitamins) 1 EACH TABLET 1 TAB PO DAILY SUPPLEMENT ( Reported) Oxycodone HCl 30 MG TABLET 1 TAB PO Q4-6H PRN PAIN (Reported) Oxycodone HCl (Oxycontin) 40 MG TAB.ER.12H 1 TAB PO BID CHRINIC PAIN ( Reported) Potassium Chloride 20 MEQ TAB.ER.PRT 1 TAB PO DAILY Hypokalemia Prednisolone Acetate (Omnipred) 1 % DROPS.SUSP 1 GTT OS 4 TIMES/DAY OCULAR ( Reported) Sodium Bicarbonate 650 MG TABLET 2 TAB PO Q6 acidosis/ABDIRASHID . Thiamine HCl (Vitamin B-1) 100 MG TABLET 100 MG PO DAILY VITAMIN DEFICIENCY Trazodone HCl 100 MG TABLET 200 MG PO QHS PRN SLEEP (Reported) Observation Initial Note - I have personally examined DEIRDRE STEINER JR on 06/02/18 at 2202. The disposition of DEIRDRE STEINER JR is uncertain at this time and before a determination can be made, he requires a period of observation for the following reasons [right groin pain] Past History Travel History Traveled to [place] past 21 day No Medical History Neurological: NONE EENT: NONE Cardiovascular: NONE Respiratory: asthma Gastrointestinal: NONE Hepatic: hepatitis C (s/p Tx with Whit) Renal: chronic kidney disease, neurogenic bladder Musculoskeletal: BACK ISSUES Psychiatric: anxiety Endocrine: NONE Blood Disorders: HIV Cancer(s): NONE AUTOMATIC BUFFING WHEEL FORMER/Reproductive: NONE History of MRSA: Yes History of VRE: No History of CDIFF: No Surgical History Surgical History: L BKA status post back surgeries Past Family/Social History Psychosocial History Where do you live? Home Who Do You Live With? self Services at Home: Nursing Primary Language: Stateless Smoking Status: Former Smoker ETOH Use: occasional use Illicit Drug Use: denies illicit drug use Functional Ability ADLs Independent: dressing, eating, toileting, bathing. Ambulation: independent IADLs Independent: shopping, housework, finances, food prep, telephone, transportation , medication admin. Review of Systems Review of Systems Constitutional: Reports: see HPI. Exam & Diagnostic Data Last 24 Hrs of Vital Signs/I&O Vital Signs Date Time Temp Pulse Resp B/P B/P Pulse O2 O2 Flow FiO2 Mean Ox Delivery Rate 06/03 0000 Room Air 06/02 2348 97.5 67 18 130/78 96 Room Air 06/02 2125 97.5 76 18 147/65 97 Room Air 06/02 1826 Room Air 06/02 1652 98.1 74 18 121/63 97 Room Air 06/02 1629 95 Room Air 06/02 1405 97.6 80 18 136/81 96 Room Air Intake & Output 06/03 0800 06/03 0000 06/02 1600 Intake Total 240 Output Total 200 Balance 40 Intake, Oral 240 Output, Urine 200 Patient 220 lb 220 lb Weight Weight Estimated Measurement Method Physical Exam General Appearance Alert, Oriented X3, Cooperative, No Acute Distress Skin No Breakdown, No Significant Lesion Skin Temp/Moisture Exam: Cool/Dry Sepsis Skin Exam (color): Normal for Ethnicity HEENT Atraumatic, PERRLA, EOMI, Mucous Membr. moist/pink Neck Supple, No JVD, No thryomegaly, +2 Carotid Pulse wo Bruit, No LAD Lymphatic Cervical nl Cardiovascular Regular Rate, Normal S1, Normal S2, No Murmurs Lungs Clear to Auscultation, Normal Air Movement Abdomen Normal Bowel Sounds, Soft, No Tenderness, No Hepatospenomegaly, No Masses Neurological Normal Speech, Strength at 5/5 X4 Ext, Normal Tone, Sensation Intact, Cranial Nerves 3-12 NL, Reflexes 2+ Extremities No Clubbing, No Cyanosis, chronic petechail rash both legs, venous stasis changes on rt leg:discoloration, Groin: no redness/swelling/d/c: unremarkable Vascular Normal Pulses, Pulses Symmetrical Assessment/Plan Assessment: 58-year-old man with past medical history of HCV status post [facility], HIV on HAART, CKD with baseline creatinine around 2, left BKA for MRSA osteomyelitis, neurogenic bladder status post fusion surgery, chronic low back pain, anxiety, asthma who presented to the emergency department for evaluation of severe right groin pain. Problems: Displaced fracture of the right pubic ramus Questionable HPI on CKD IIIA Thrombocytopenia History of HIV on [place] HCV status post [facility] Assessment: The pelvic CT did show a subtle nondisplaced fracture along the right superior pubic ramus which extends into the acetabulum in addition to a minimally displaced fracture of the right inferior pubic ramus there is no fracture of the right femur identified. Diffuse bladder wall thickening also seen. The patient had a fall 2 weeks ago. There is no history of recent falls. On the last visit to the emergency department on May 27 the creatinine was 4.2. Today the creatinine is 7.8. He also has a non-anion gap metabolic acidosis with HCO3 level of 11. This the patient is in ABDIRASHID on chronic kidney disease stage IIIa. Plan: bicarb drip plan is to start p.o. bicarb as per home dose As Ranked By This Provider Problem List: 1. ABDIRASHID (acute kidney injury) 2. Pain of right lower extremity 3. Right groin pain Core Measures/Misc (06/15) Acute Coronary Syndrome ACS Diagnosis: No Congestive Heart Failure Congestive Heart Failure Diagnosis No Cerebrovascular Accident CVA/TIA Diagnosis: No VTE (View Protocol) VTE Risk Factors Age>40 No Mechanical VTE Prophylaxis d/t N/A MechProphylax Ordered No VTE Pharm Prophylaxis d/t NA PharmProphylax ordered Sepsis (View protocol) Sepsis Present: No If YES complete Sepsis Event Note If YES complete Sepsis Event Note [facility] 0000: Exam & Diagnostic Data Last 24 Hrs of Vital Signs/I&O Vital Signs Date Time Temp Pulse Resp B/P B/P Pulse O2 O2 Flow FiO2 Mean Ox Delivery Rate 06/03 0000 Room Air 06/02 2348 97.5 67 18 130/78 96 Room Air 06/02 2125 97.5 76 18 147/65 97 Room Air 06/02 1826 Room Air 06/02 1652 98.1 74 18 121/63 97 Room Air 06/02 1629 95 Room Air 06/02 1405 97.6 80 18 136/81 96 Room Air Intake & Output 06/03 0800 06/03 0000 06/02 1600 Intake Total 240 Output Total 200 Balance 40 Intake, Oral 240 Output, Urine 200 Patient 220 lb 220 lb Weight Weight Estimated Measurement Method Core Measures/Misc (06/15) Acute Coronary Syndrome ACS Diagnosis: No Congestive Heart Failure Congestive Heart Failure Diagnosis No VTE (View Protocol) VTE Risk Factors Age>40 No Mechanical VTE Prophylaxis d/t N/A MechProphylax Ordered No VTE Pharm Prophylaxis d/t NA PharmProphylax ordered Sepsis (View protocol) If YES complete Sepsis Event Note If YES complete Sepsis Event Note Resident Review Statement Resident Statement: examined this patient, discussed with sports intern, reviewed EMR data (avail) Other Findings: Mr. Steiner is a 57 year old male with PMH of HIV on HAART, HCV s/p Harvoni, CKD (with baseline Cr around 2), left BKA for MRSA osteomyelitis, chronic low back pain, neurogenic bladder s/p fusion surgery, anxiety and asthma presented to the ED with complains of severe right LE pain. The patient was recently discharged from [facility] on 05/26/18 after being seen for a fall and ABDIRASHID. The patient states that this morning while he was rolling in his wheelchair he suddenly started experiencing excrutiating pain in his right thigh radiating to his leg and groin. He waited for 45 minutes after which EMS was called. He did not take any medication for the pain. On arrival to the ED, a pelvic CT showed minimally displaced fracutre of the right pubic ramus. He states that he did not have any pain on his last visit or at the time of discharge and this was something that started just today. ROS: significant for RLE pain and shortness of breath Physical Exam: General Appearance: well developed/nourished, mild distress Head: atraumatic, normal appearance Eyes: left eye appears slightly opaque/hazy Ears, Nose, Throat: normal hearing and speech. Respiratory: normal breath sounds, chest non-tender, no respiratory distress Cardiovascular: regular rate/rhythm, normal S1 and S2, systolic murmur Gastrointestinal: soft, non-tender, distended Back: surgical scar in lumbar region. Extremities: BKA of LLE with healed stump, stasis skin changes of RLE with erythema extending to thigh with edema. Neurologic/Psych: awake, alert, oriented x 3, normal mood/affect Skin: intact, normal color, warm/dry Pelvic CT: Subtle nondisplaced fracture along the right superior pubic ramus which extends into the acetabulum addition to a minimally displaced fracture of the right inferior pubic ramus. There is no fracture of the right femur identified. Diffuse bladder wall thickening Assessment: 1. Displaced fracture of right pubic ramus 2. ? ABDIRASHID on CKD 3. Thrombocytopenia 4. History of HIV and HCV Plan: * Admit patient to general medicine in obs * Pain control with IV Tylenol, Percocet and morphine * Ortho consult. He has a displaced fracture and an undisplaced fracture of right hip. * His Cr is significantly elevated. Old records show that his baseline Cr is around 2. Not sure at this point the inciting factor for acute rise in Cr. * Nephrology consult in am * His UA is significant for infection. However, with chronic urinary retention and straight cath, he likely has colonization. He is asymptomatic at this point hence would observe him off antibiotics for now. * Monitor CBC for platelets * Aggressive bowel regimen. Moderate amount of stool burden was noticed on his imaging. * Diet: NPO in case of surgical intervention in am. * DVT Prophylaxis: SC Heparin * Code: Manny Stevens 06/03/18 0040: Core Measures/Misc (06/15) Sepsis (View protocol) If YES complete Sepsis Event Note If YES complete Sepsis Event Note Attending MD Review Statement Attending Statement Attending MD Statement: examined this patient, discuss w/resident/PA/RUBBLE PLACER, agreed w/resident/PA/RUBBLE PLACER Attending Assessment/Plan: Addendum by . Patient was seen and examined at bedside today ( 06/02/18) at 11pm. Reviewed the history physical done by the resident. Reviewed the past medical family, family, social history. ROS: 10 point system reviewed and negative except as described above. 58 year old male with PMH of HIV on HAART, HCV s/p Harvoni, CKD IIIA, anxiety, and asthma, recnent fall is here for excruciating pain in the right groin area. Patient states he is compliant with his HIV medications, his last CD4 count was probably about 600 more than 3 months ago. The physical examination done by the resident. Reviewed the labs, A/p: #Pain in the right groin: Stable to a stable fracture noted on the CT scan. This is due to fall he sustained 2 weeks ago. Continue with the pain medications like Tylenol for mild pain, patient is on oxycodone at home which can be continued for moderate to severe pain. Get PT evaluation. ortho to see the patient in the a.m. #CKD stage- 5: Patient has creatinine 4.2 on May 27. Now creatinine is around 7.8. Patient denies any decreased urine output, not in fluid overload at this point patient has non-anion gap metabolic acidosis with bicarb around 11, will give him bicarb drip for now which also provide some IV fluids. Etiology of the renal failure is not clear will get the renal involvement. Can order SPEP, UPEP, urine lites, complement levels. Avoid nephrotoxic medications. Continue with the home bicarb when off bicarb drip. #HIV-on HAARt therapy, no acute issues. #Neurogenic bladder-patient does straight cath at home. Patient is a cloudy urine in the emergency room on straight cath. Patient does not have any urinary symptoms. Will not give any antibiotics jess urine is positive for infection. # HCV s/p Harvoni, CKD IIIA, anxiety, and asthma Reviewed with the resident. Agree with the rest of the plan as per resident's note. Dr.Ravinder Henrietta MD. Hospitalist. Pager: [phone], cell: [phone].
[2018-06-02 23:48] VITALS: BP 130/78
[2018-06-03 06:31] VITALS: BP 130/74
--- NOTE | 2018-06-03 07:58 | PN-Observation ---
Observation Note Observation Note _ I have personally examined DEIRDRE STEINER JR. him disposition is uncertain at this time. Before a determination can be made, he requires continued observation for the following reasons acute on chronic kidney failure. 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 On presentation his creatinine was 7.8 and a bicarb of 11. Impression * Right groin pain. Patient has radiological evidence of minimally displaced right pubis ramus fracture. This is secondary to the fall he had about 2 weeks ago. * Acute on chronic renal failure as evident by a creatinine level of 0.8 given that patient average baseline is around 2.4 and his May 27 creatinine was 4.2. * Metabolic acidosis. Secondary to kidney failure * Abnormal urinalysis with positive nitrate, leukoesterase and increased white count suggestive of asymptomatic bacteriuria. Patient does not endorse any urinary symptoms at baseline uses straight catheter for his neurogenic bladder. * Hyper phosphatemia. Secondary to kidney failure. * Hypo-vitaminosis (vitamin D). * Acute on chronic anemia. Normocytic strongly suggestion chronic kidney disease as the cause. No signs of acute bleed to suggest acute blood loss. Plan Given the significant worsening of kidney function with significant electrolyte derangements patient warrants admission with therefore admit to general medicine floor. Continue sodium bicarb D5 with a rate of 100/h Repeat BEP around 2 PM and adjust fluids, the goal is to have patient be on half normal saline at 100 mils per hour Start sevelamer in the context of hyperphosphatemia. We will institute 1600 mg with meals We will await correctional phosphate level before initiation of vitamin D, given the significantly low level patient will require 50,000 international units per week for about 6-8 weeks Watch off antibiotics for the symptomatic bacteriuria, patient frequently straight caths for his neurogenic bladder therefore contamination versus colonization is always a possibility Will await neurology consult recommendation We will await orthopedic recommendation, doubtful if patient will require surgical intervention code status:FC DVT PPX:hEPARIN Problem List: 1. Right groin pain 2. [id number] kidney injury Subjective Follow-up For: Acute on chronic Kidney pubis fracture Subjective: Seen and examined at bedside. Still complaints of right groin area. Denies sob/cp/palpitation/altered mental status, or any other uremic features. Currently on Bicarb D5 at 75ml/hr Review of Systems Constitutional: Reports: see HPI. Objective Last 24 Hrs of Vital Signs/I&O Vital Signs Date Time Temp Pulse Resp B/P B/P Pulse O2 O2 Flow FiO2 Mean Ox Delivery Rate 06/03 1600 97.3 95 26 134/78 99 Venti Mask 55% 06/03 1600 99 Venti Mask 55% 06/03 1457 97.5 73 18 130/75 95 Room Air 06/03 0800 Room Air 06/03 0631 97.5 74 18 130/74 94 Room Air 06/03 0000 Room Air 06/02 2348 97.5 67 18 130/78 96 Room Air 06/02 2125 97.5 76 18 147/65 97 Room Air 06/02 1826 Room Air Intake & Output 06/03 1600 06/03 0800 09/05 0000 Intake Total 650 75 240 Output Total 1200 150 200 Balance -550 -75 40 Intake, IV 650 75 Intake, Oral 0 240 Number 0 Bowel Movements Output, Urine 1200 150 200 Patient 99.79 kg Weight Physical Exam General Appearance: Alert, Oriented X3, Cooperative Skin: No Significant Lesion Sepsis Skin Exam (color): Normal for Ethnicity HEENT: Atraumatic, Mucous Membr. moist/pink Neck: Supple, No JVD Lymphatic: Cervical nl Cardiovascular: Regular Rate, Normal S1, Normal S2 Lungs: Clear to Auscultation, Normal Air Movement Abdomen: Normal Bowel Sounds, Soft, No Tenderness Neurological: Normal Speech, Normal Tone, Sensation Intact Extremities: Normal Pulses, No Tenderness/Swelling Other Physical Findings: decreased ROM of rught hip due to pain
[2018-06-03 08:55] LABS: ABSOLUTE BASOPHIL COUNT 0 /CUMM (0.0-0.2); ABSOLUTE EOSINOPHIL COUNT 0.1 /CUMM (0.0-0.7); ABSOLUTE GRANULOCYTE CT 2.4 /CUMM (1.4-6.5); ABSOLUTE LYMPH COUNT 1.6 /CUMM (1.2-3.4); ABSOLUTE MONOCYTE COUNT 0.3 /CUMM (0.10-0.60); BASOPHIL % 0.7 % (0.0-2.0); GRANULOCYTE % 55.4 % (42.2-75.2); HEMATOCRIT 24.3 % (42-52); MEAN CORPUSCULAR HGB 34.6 PG (27.0-31.0); MEAN CORPUSCULAR HGB CONC 36.5 G/DL (33.0-37.0); MEAN PLATELET VOLUME 7.4 FL (7.4-10.4); PLATELET COUNT 122 /CUMM (130-400); RBC DISTRIBUTION WIDTH 15.2 % (11.5-14.5); RED BLOOD CELL CT 2.56 /CUMM (4.70-6.10); WHITE BLOOD CELL COUNT 4.4 /CUMM (4.8-10.8)
--- NOTE | 2018-06-03 10:12 | PN- Att Addend ---
Attending Addendum Attending Brief Note Patient seen and examined, he was sleeping and woke up from sleep. He does complain of pain in his right groin. Patient is admitted with acute pain. Patient was recently admitted to [facility] with acute on chronic renal failure, UTI and pneumonia. Currently he is medical observation for right groin pain. He has hx of urinary retention since after his spine surgery a while back and he straight caths himself. Vital Signs Date Time Temp Pulse Resp B/P B/P Pulse O2 O2 Flow FiO2 Mean Ox Delivery Rate 06/03 0631 97.5 74 18 130/74 94 Room Air 06/03 0000 Room Air 06/02 2348 97.5 67 18 130/78 96 Room Air 06/02 2125 97.5 76 18 147/65 97 Room Air 06/02 1826 Room Air 06/02 1652 98.1 74 18 121/63 97 Room Air 06/02 1629 95 Room Air 06/02 1405 97.6 80 18 136/81 96 Room Air on exam; aox3, nad. cv; s1,s,2 rrr resp; clear abd; soft, nt, bs+ ext; no edema, left bka. Laboratory Tests 06/03 06/03 06/03 0701 0645 0340 Chemistry Sodium (137 - 145 mmol/L) 140 Potassium (3.5 - 5.1 mmol/L) 4.1 Chloride (98 - 107 mmol/L) 115 H Carbon Dioxide (22 - 30 mmol/L) 14 L Anion Gap (5 - 16) 11 BUN (9 - 20 mg/dL) 65 H Creatinine (0.7 - 1.2 mg/dL) 7.9 *H Estimated GFR (>60 ml/min) 7 L BUN/Creatinine Ratio (7 - 25 %) 8.2 Serum Osmolality (285 - 295 MOSM/KG) Pending Creatine Kinase (55 - 170 U/L) 118 Prot Electrophoresis Pending Total Protein (PEP) Pending Albumin % (PEP) Pending [id number] Pending Vefxm-9-Avczcccgo Pending [id number] Pending Jppo-5-Erefvnrz Pending Gamma Globulins Pending Abnorm Protein Band 1 Pending Abnorm Protein Band 2 Pending Abnorm Protein Band 3 Pending Hematology CBC w Diff NO MAN DIFF REQ WBC (4.8 - 10.8 /CUMM) 4.4 L RBC (4.70 - 6.10 /CUMM) 2.56 L Hgb (14.0 - 18.0 G/DL) 8.9 L Hct (42 - 52 %) 24.3 L MCV (80.0 - 94.0 FL) 95.0 H MCH (27.0 - 31.0 PG) 34.6 H MCHC (33.0 - 37.0 G/DL) 36.5 RDW (11.5 - 14.5 %) 15.2 H Plt Count (130 - 400 /CUMM) 122 L MPV (7.4 - 10.4 FL) 7.4 Gran % (42.2 - 75.2 %) 55.4 Lymphocytes % (20.5 - 51.1 %) 35.7 Monocytes % (1.7 - 9.3 %) 6.2 Eosinophils % (0 - 5 %) 2.0 Basophils % (0.0 - 2.0 %) 0.7 Absolute Granulocytes (1.4 - 6.5 /CUMM) 2.4 Absolute Lymphocytes (1.2 - 3.4 /CUMM) 1.6 Absolute Monocytes (0.10 - 0.60 /CUMM) 0.3 Absolute Eosinophils (0.0 - 0.7 /CUMM) 0.1 Absolute Basophils (0.0 - 0.2 /CUMM) 0 Immunology Complement C3 Pending Complement C4 Pending Urines Ur Random Creatinine (mg/dL) 41.2 Ur Random Sodium (30 - 90 mmol/L) 73 Ur Random Potassium (mmol/L) 25.6 Fraction Sodium Excret (<1% %) 9.9 H 06/02 06/02 6253 [id number] Chemistry Sodium (137 - 145 mmol/L) 139 Potassium (3.5 - 5.1 mmol/L) 4.9 Chloride (98 - 107 mmol/L) 115 H Carbon Dioxide (22 - 30 mmol/L) 11 L Anion Gap (5 - 16) 13 BUN (9 - 20 mg/dL) 68 H Creatinine (0.7 - 1.2 mg/dL) 7.8 *H Estimated GFR (>60 ml/min) 7 L BUN/Creatinine Ratio (7 - 25 %) 8.7 Glucose (65 - 99 mg/dL) 103 H Calcium (8.4 - 10.2 mg/dL) 7.0 L Phosphorus (2.5 - 4.5 mg/dL) 9.1 H Total Bilirubin (0.2 - 1.3 mg/dL) 0.5 AST (17 - 59 U/L) 29 ALT (21 - 72 U/L) 19 L Alkaline Phosphatase (< 127 U/L) 126 Total Protein (6.3 - 8.2 g/dL) 7.7 Albumin (3.5 - 5.0 g/dL) 3.0 L Globulin (1.9 - 4.2 gm/dL) 4.7 H Albumin/Globulin Ratio (1.1 - 2.2 %) 0.6 L Hematology CBC w Diff NO MAN DIFF REQ WBC (4.8 - 10.8 /CUMM) 4.8 RBC (4.70 - 6.10 /CUMM) 2.76 L Hgb (14.0 - 18.0 G/DL) 9.5 L Hct (42 - 52 %) 26.6 L MCV (80.0 - 94.0 FL) 96.4 H MCH (27.0 - 31.0 PG) 34.4 H MCHC (33.0 - 37.0 G/DL) 35.7 RDW (11.5 - 14.5 %) 15.6 H Plt Count (130 - 400 /CUMM) 125 L MPV (7.4 - 10.4 FL) 7.8 Gran % (42.2 - 75.2 %) 57.5 Lymphocytes % (20.5 - 51.1 %) 35.2 Monocytes % (1.7 - 9.3 %) 5.6 Eosinophils % (0 - 5 %) 1.0 Basophils % (0.0 - 2.0 %) 0.7 Absolute Granulocytes (1.4 - 6.5 /CUMM) 2.7 Absolute Lymphocytes (1.2 - 3.4 /CUMM) 1.7 Absolute Monocytes (0.10 - 0.60 /CUMM) 0.3 Absolute Eosinophils (0.0 - 0.7 /CUMM) 0 Absolute Basophils (0.0 - 0.2 /CUMM) 0 Urines Urine Color (YEL,AMB,STR) YEL Urine Clarity (CLEAR) TURBD H Urine pH (5.0 - 8.0) 6.0 Ur Specific [place] (1.001 - 1.035) 1.025 Urine Protein (NEG,<30 MG/DL) 100 H Urine Ketones (NEG) TRACE H Urine Nitrite (NEG) POS H Urine Bilirubin (NEG) NEG Urine Urobilinogen (0.1 - 1.0 EU/dl) 0.2 Ur Leukocyte Esterase (NEG) LARGE H Ur Microscopic SEDIMENT EXAMINED Urine RBC (0 - 5 /HPF) 15-25 H Urine WBC (0 - 2 /HPF) PACKD H Ur Epithelial Cells (NONE,FEW) FEW Urine Bacteria (NEG/NONE) PACKD H Urine Mucus (FEW,NONE) FEW Urine Hemoglobin (NEG) LARGE H Urine Glucose (N MG/DL) 250 H A/P; 58 y/o M with pmh sig for HIV on HAART, HCV s/p Harvoni, CKD stage 4, anxiety, ch anemia likely 2/2 to HIV and CKD and asthma, recnent fall is placed on medical observation with acute right groin pain and found to have Subtle nondisplaced fracture along the right superior pubic ramus which extends into the acetabulum addition to a minimally displaced fracture of the right inferior pubic ramus. There is no fracture of the right femur identified on CT pelvis. Patient also has acute on chronic kidney disease. Creatinine remains in the same range. Bicarbonate is slightly better. Patient currently getting bicarbonate and IV fluids. Will obtain a renal ultrasound and will obtain nephrology consult. Patient has other workup ordered including SPEP and UPEP, which will need to be followed. Continue current pain management. Patient to be seen by orthopedic. Once cleared from orthopedic standpoint, he can participate in physical therapy. We will continue the patient on his HAART therapy for HIV. DVT px; Hep sq. watch plts and H&H. There is drop in both.
--- NOTE | 2018-06-03 10:15 | Cons- Orthopedic ---
General Information and HPI Consulting Request Date of Consult: 06/03/18 Requested By: Ronni DEL VALLE,Mae Reason for Consult: Fracture of right superior/inferior rami History of Present Illness: 58yo M with PMH of HIV, HCV, CKD, left BKA, urinary retention s/p spine surgery, and anxiety presents with right groin pain. He reports a history of a fall about 10 days ago in the bathroom. Does not ambulate at baseline following left BKA about 10 years ago; uses a wheelchair. He denies sensation in the right foot/lower leg. He was recently admitted to [facility] with a UTI and pneumonia. Of note, patient had a reported seizure earlier today and has been transferred to the ICU for further monitoring. He just finished an EEG. Allergies/Medications Allergies: Coded Allergies: erythromycin base (UNKNOWN 12/02/16) Home Med List: Abacavir Sulfate (Abacavir) 300 MG TABLET 1 TAB PO DAILY ANTIVIRAL (Reported) Albuterol Sulfate (Proair Hfa) 90 MCG HFA.AER.AD 2 PUF INH Q4-6 PRN PRN ASTHMA (Reported) Alprazolam (Xanax) 0.5 MG TABLET 1 TAB PO Q6P PRN ANXIETY/SLEEP (Reported) Calcium Carbonate/Vitamin D3 (Calcium 500 + D Tablet) (Unknown Strength) TABLET (Unknown Dose) PO DAILY SUPPLEMENT (Reported) Dextran 70/Hypromellose (Artificial Tears) 1 EACH DROPERETTE 1 GTT OS BID OCULAR (Reported) Dolutegravir Sodium (Tivicay) 50 MG TABLET 1 TAB PO DAILY HIV (Reported) Folic Acid 1 MG TABLET 1 MG PO DAILY VITAMIN DEFICIENCY Gabapentin (Neurontin) 300 MG CAPSULE 1 CAP PO BID NEUROPATHY (Reported) Lactulose 10 GRAM/15 ML SOLUTION 30 ML PO QAM ENCEPHALOPATHY (Reported) Multiple Vitamin (Multivitamins) 1 EACH TABLET 1 TAB PO DAILY SUPPLEMENT ( Reported) Oxycodone HCl 30 MG TABLET 1 TAB PO Q4-6H PRN PAIN (Reported) Oxycodone HCl (Oxycontin) 40 MG TAB.ER.12H 1 TAB PO BID CHRINIC PAIN ( Reported) Potassium Chloride 20 MEQ TAB.ER.PRT 1 TAB PO DAILY Hypokalemia Prednisolone Acetate (Omnipred) 1 % DROPS.SUSP 1 GTT OS 4 TIMES/DAY OCULAR ( Reported) Sodium Bicarbonate 650 MG TABLET 2 TAB PO Q6 acidosis/ABDIRASHID . 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 Home Who Do You Live With? self Services at Home: Nursing Primary Language: Namibian Smoking Status: Former Smoker ETOH Use: occasional use Illicit Drug Use: denies illicit drug use Functional Ability ADLs Independent: dressing, eating, toileting, bathing. Ambulation: independent IADLs Independent: shopping, housework, finances, food prep, telephone, transportation , medication admin. Exam & Diagnostic Data Vital Signs and I&O Vital Signs Date Time Temp Pulse Resp B/P B/P Pulse O2 O2 Flow FiO2 Mean Ox Delivery Rate 06/03 0631 97.5 74 18 130/74 94 Room Air 06/03 0000 Room Air 06/02 2348 97.5 67 18 130/78 96 Room Air 06/02 2125 97.5 76 18 147/65 97 Room Air 06/02 1826 Room Air 06/02 1652 98.1 74 18 121/63 97 Room Air 06/02 1629 95 Room Air 06/02 1405 97.6 80 18 136/81 96 Room Air Intake & Output 06/03 1600 06/03 0000 06/02 1600 06/02 0806/02 0000 Intake Total 75 240 Output Total 150 200 Balance -75 40 Intake, IV 75 Intake, Oral 0 240 Number 0 Bowel Movements Output, Urine 150 200 Patient 220 lb 220 lb Weight Weight Estimated Measurement Method Physical Exam: Patient alert, pleasant, in no acute distress. Frequent jerking/twitching involving entire body. Right Lower Extremity: Pain in the groin with passive hip flexion; moderate discomfort with passive adduction/abduction No tenderness with palpation of lateral hip, thigh, or knee. Denies sensation to light touch in the the lower leg or foot No report of calf pain with palpation. Chronic skin changes to right ankle and foot consistent with vascular disease. No palpable DP pulse in the right foot, but foot warm with brisk cap refill in great toe. Imaging Results: CT Scan adomen/pelvis (06/02/18): "1. Subtle nondisplaced fracture along the right superior pubic ramus which extends into the acetabulum addition to a minimally displaced fracture of the right inferior pubic ramus. There is no fracture of the right femur identified." XR right hip (06/02/18): "Difficult exam given degree of osteopenia and given the degenerative change in the right hip joint and heterotopic bone in the soft tissues posterior to the femoral neck. No definite fracture seen on plain film. If clinical suspicion for hip fracture is high, consider additional assessment with CT scan of the right hip." Assessment/Plan Assessment/Plan 58yo M with HIV, HCV, CKD, asthma, left BKA, and anxiety presents with minimal- displaced right superior/inferior rami fractures. 1. Appreciate medical management of this patient and his ongoing medical problems. 2. Protected weight bearing as tolerated on the right lower extremity. Due to pain from fractures, he will likely be able to put weight down to transfer only. Given his recent diagnosis of pneumonia, recommend patient is up to chair as often as possible. 3. Pain control 4. PT/OT Patient may follow up as an outpatient for re-evaluation and repeat xrays in 2wks. Please call [phone] to schedule an appointment. Consult Acknowledgment - Thank you for your consult request. Attending MD Review Statement Attending Statement Attending MD Statement: examined this patient, reviewed EMR data (avail), reviewed images
[2018-06-03 14:57] VITALS: BP 130/75
[2018-06-03 16:00] VITALS: BP 134/78
--- NOTE | 2018-06-03 16:17 | Event Note ---
Event Note Event Note: S: Pt. was in Renal Ultrasound today and around 3:15 pm rapid response was called due to presentation of a tonic-clonic seizure that lasted about 25 seconds in duration. Patient became lethargic, confused, and disoriented. Patient vitals initially were stable but patient did require oxygen subsequently as he desaturated to 91%. B: Patient recently had came to for complaints of severe right lower extremity pain and placed in observation in general medicine. Patient was recently discharged from [place] on 05/26 due to presenting for fall and ABDIRASHID. Patient has PMHx. of HIV on HAART, HCV s/p Harvoni, CKD (with baseline Cr around 2), left BKA for MRSA osteomyelitis, chronic low back pain, neurogenic bladder s /p fusion surgery, anxiety and asthma. Patient had been receiving sodium bicarbonate 1300 mg tab q6 and on Unasyn 1.5 g IV. A: Ordered ABG, CBC, BEP, UTox, CXR, Prolactin and CT Head stat. ABG: pH 7.11 pCO2 36 pO2 164 HCO3 11 R: Patient will be transferred to ICU for further management and care of patient. Began loading dose of Keppra 1000 mg once followed by scheduled Keppra 500 mg BID. Began Xanax 0.5 mg TID PO. Patient will be signed off to the ICU team by the current resident for the patient.
--- NOTE | 2018-06-03 16:22 | Cons- CRCU ---
Matthew DEL VALLE,[facility] 06/03/18 1622: General Information and HPI Consulting Request Date of Consult: 06/03/18 Requested By: Dr. Rudolph Reason for Consult: Seizure History of Present Illness: Mr. Molina is a 58-year-old male with past medical history of HIV on HAART, hepatitis C virus s/p Harvoni, CKD, neurogenic bladder status post fusion surgery, left BKA for MRSA osteomyelitis. He was initially placed in observation on general medicine for a right pubic ramus fracture status post fall and acute on chronic kidney injury of unclear etiology. Patient was going downstairs for renal ultrasound when he started exhibiting muscle jerks resembling a tonic-clonic seizure that lasted about 25 seconds in duration. The patient subsequently became lethargic, confused, disoriented. Vital signs remained stable. He was subsequently transferred to the intensive care unit for further care. Patient currently states that he is slightly short of breath and does not remember the event. He currently feels a little confused. He does not have any pain at this time. Allergies/Medications Allergies: Coded Allergies: erythromycin base (UNKNOWN 12/02/16) Home Med List: Abacavir Sulfate (Abacavir) 300 MG TABLET 1 TAB PO DAILY ANTIVIRAL (Reported) Albuterol Sulfate (Proair Hfa) 90 MCG HFA.AER.AD 2 PUF INH Q4-6 PRN PRN ASTHMA (Reported) Alprazolam (Xanax) 0.5 MG TABLET 1 TAB PO Q6P PRN ANXIETY/SLEEP (Reported) Calcium Carbonate/Vitamin D3 (Calcium 500 + D Tablet) (Unknown Strength) TABLET (Unknown Dose) PO DAILY SUPPLEMENT (Reported) Dextran 70/Hypromellose (Artificial Tears) 1 EACH DROPERETTE 1 GTT OS BID OCULAR (Reported) Dolutegravir Sodium (Tivicay) 50 MG TABLET 1 TAB PO DAILY HIV (Reported) Folic Acid 1 MG TABLET 1 MG PO DAILY VITAMIN DEFICIENCY Gabapentin (Neurontin) 300 MG CAPSULE 1 CAP PO BID NEUROPATHY (Reported) Lactulose 10 GRAM/15 ML SOLUTION 30 ML PO QAM ENCEPHALOPATHY (Reported) Multiple Vitamin (Multivitamins) 1 EACH TABLET 1 TAB PO DAILY SUPPLEMENT ( Reported) Oxycodone HCl 30 MG TABLET 1 TAB PO Q4-6H PRN PAIN (Reported) Oxycodone HCl (Oxycontin) 40 MG TAB.ER.12H 1 TAB PO BID CHRINIC PAIN ( Reported) Potassium Chloride 20 MEQ TAB.ER.PRT 1 TAB PO DAILY Hypokalemia Prednisolone Acetate (Omnipred) 1 % DROPS.SUSP 1 GTT OS 4 TIMES/DAY OCULAR ( Reported) Sodium Bicarbonate 650 MG TABLET 2 TAB PO Q6 acidosis/ABDIRASHID . Thiamine HCl (Vitamin B-1) 100 MG TABLET 100 MG PO DAILY VITAMIN DEFICIENCY Trazodone HCl 100 MG TABLET 200 MG PO QHS PRN SLEEP (Reported) Review of Systems Review of Systems Constitutional: Reports: see HPI. EENTM: Reports: no symptoms. Cardiovascular: Reports: no symptoms. Respiratory: Reports: see HPI. GI: Reports: no symptoms. Genitourinary: Reports: no symptoms. Musculoskeletal: Reports: no symptoms. Skin: Reports: no symptoms. Neurological/Psychological: Reports: see HPI. Hematologic/Endocrine: Reports: no symptoms. Immunologic/Allergic: Reports: no symptoms. 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 Home Who Do You Live With? self Services at Home: Nursing Primary Language: Mongolian Smoking Status: Former Smoker ETOH Use: occasional use Illicit Drug Use: denies illicit drug use Functional Ability ADLs Independent: dressing, eating, toileting, bathing. Ambulation: independent IADLs Independent: shopping, housework, finances, food prep, telephone, transportation , medication admin. Exam & Diagnostic Data Last 24 Hrs of Vital Signs/I&O Vital Signs Date Time Temp Pulse Resp B/P B/P Pulse O2 O2 Flow FiO2 Mean Ox Delivery Rate 06/03 1600 97.3 95 26 134/78 99 Venti Mask 55% 06/03 1457 97.5 73 18 130/75 95 Room Air 06/03 0800 Room Air 06/03 0631 97.5 74 18 130/74 94 Room Air 06/03 0000 Room Air 06/02 2348 97.5 67 18 130/78 96 Room Air 06/02 2125 97.5 76 18 147/65 97 Room Air 06/02 1826 Room Air 06/02 1652 98.1 74 18 121/63 97 Room Air Intake & Output 06/03 1600 06/03 0800 06/03 0000 Intake Total 650 75 240 Output Total 1200 150 200 Balance -550 -75 40 Intake, IV 650 75 Intake, Oral 0 240 Number 0 Bowel Movements Output, Urine 1200 150 200 Patient 99.79 kg Weight Physical Exam General Appearance: cachetic, lethargic, mild distress, facial/body twitching noted Respiratory: normal breath sounds Cardiovascular: regular rate/rhythm Gastrointestinal: normal bowel sounds, soft, non-tender, hepatomegaly Extremities: s/p Left BKA Last 48 Hrs of Labs/Attila: Laboratory Tests 06/03/18 1533: Prolactin Cancelled 06/03/18 1530: pH 7.11 *L, pCO2 36, pO2 164 H, HCO3 11 L, ABG O2 Sat (Measured) 97.0, Carboxyhemoglobin 0.6 L, O2 Concentration % 60%, O2 Delivery Method PRB, Phlebotomy Draw Site RIGHT RADIAL 06/03/18 1403: Anion Gap 11, Estimated GFR 7 L, BUN/Creatinine Ratio 8.7, Led-Y-Gnytstczijc Pept Pending, Prolactin Pending 06/03/18 0701: Anion Gap 11, Estimated GFR 7 L, BUN/Creatinine Ratio 8.2, Serum Osmolality 316 H, Creatine Kinase 118, CBC w Diff NO MAN DIFF REQ, RBC 2.56 L, MCV 95.0 H, MCH 34.6 H, MCHC 36.5, RDW 15.2 H, MPV 7.4, Gran % 55.4, Lymphocytes % 35.7, Monocytes % 6.2, Eosinophils % 2.0, Basophils % 0.7, Absolute Granulocytes 2.4, Absolute Lymphocytes 1.6, Absolute Monocytes 0.3, Absolute Eosinophils 0.1, Absolute Basophils 0 06/03/18 0645: Urine Opiates Screen 1519.00, Methadone Screen < 40, Barbiturate Screen < 60, Ur Phencyclidine Scrn < 6.00, Amphetamines Screen < 100, U Benzodiazepines Scrn 584 H, Urine Cocaine Screen < 50, Urine Cannabis Screen < 5.00, Ur Random Creatinine 41.2, Ur Random Sodium 73, Ur Random Potassium 25.6, Fraction Sodium Excret 9.9 H 06/03/18 0340: Prot Electrophoresis Pending, Total Protein (PEP) Pending, Albumin % (PEP) Pending, Gsbde-4-Sdyycmcwn Pending, Ppvov-7-Yozdtccqy Pending, Jjcg-4-Tiewqknb Pending, Wrvj-5-Skbktoux Pending, Gamma Globulins Pending, Abnorm Protein Band 1 Pending, Abnorm Protein Band 2 Pending, Abnorm Protein Band 3 Pending, Complement C3 Pending, Complement C4 Pending 06/02/18 2153: Urine Color YEL, Urine Clarity TURBD H, Urine pH 6.0, Ur Specific [place] 1.025 , Urine Protein 100 H, Urine Ketones TRACE H, Urine Nitrite POS H, Urine Bilirubin NEG, Urine Urobilinogen 0.2, Ur Leukocyte Esterase LARGE H, Ur Microscopic SEDIMENT EXAMINED, Urine RBC 15-25 H, Urine WBC PACKD H, Ur Epithelial Cells FEW, Urine Bacteria PACKD H, Urine Mucus FEW, Urine Hemoglobin LARGE H, Urine Glucose 250 H 06/02/18 1858: Anion Gap 13, Estimated GFR 7 L, BUN/Creatinine Ratio 8.7, Glucose 103 H, Calcium 7.0 L, Phosphorus 9.1 H, Total Bilirubin 0.5, AST 29, ALT 19 L, Alkaline Phosphatase 126, Total Protein 7.7, Albumin 3.0 L, Globulin 4.7 H, Albumin/Globulin Ratio 0.6 L, CBC w Diff NO MAN DIFF REQ, RBC 2.76 L, MCV 96.4 H, MCH 34.4 H, MCHC 35.7, RDW 15.6 H, MPV 7.8, Gran % 57.5, Lymphocytes % 35.2, Monocytes % 5.6, Eosinophils % 1.0, Basophils % 0.7, Absolute Granulocytes 2.7, Absolute Lymphocytes 1.7, Absolute Monocytes 0.3, Absolute Eosinophils 0, Absolute Basophils 0 Assessment/Plan CRCU Impression/Plan: Mr. Molina is a 58-year-old male with past medical history of HIV on HAART, hepatitis C virus s/p Harvoni, CKD, neurogenic bladder status post fusion surgery, left BKA for MRSA osteomyelitis initially placed in observation for left pubic ramus fracture and acute on chronic injury now being transferred to the intensive care unit status post seizure-like activity of unclear etiology. Because the patient is HIV positive, the differential diagnosis is broad and includes infection, medications, drugs, and uremia. CT scan was reported immediately after the incident showed no territorial infarcts or masses. Given the patient's high creatinine and BUN, acidemia/uremia is high in the differential and patient may need urgent dialysis. There is no fever or leukocytosis the patient was previously here for a pubic ramus fracture, so infection is lower on the differential at this time. Plan: -Admit to intensive care unit -Strict I's and O's -Follow-up chest x-ray -Blood and urine cultures -Prolactin level -Utox -Nephrology consult, consider dialysis -Neurology consult -EEG -Sodium bicarbonate drip, monitor bicarb -Oxygen therapy as needed -Continue other home meds DVT prophylaxis with heparin N.p.o. DNI Consult Acknowledgment - Thank you for your consult request. Dexter Velasquez MD 06/03/18 1700: Assessment/Plan CRCU Other Findings/Comments: Impression 58 year old man * twitching/seizure like activity resulting in rapid response and transfer to the ICU * R mid/lower lung field opacification IMPROVED - sputum with Klebsiella pneumoniae, Serratia Marcescens, MSSA - s/p antibiotics * acute on chronic renal failure * hx of HIV * hx of recurrent UTI's * s/p fall - rami fractures * hx of left BKA Plan Respiratory -monitor abg -cxr with improving opacities ID -discontinue antibiotics -f/u all cultures CVS -monitor hemodynamics Heme -coags, cbc Metabolic -ins/outs -nephrology consultation -bicarbonate drip -will discuss possible option of HD Alimentary -NPO Neuro -EEG -f/u neurology consultation -unclear if seizure activity vs. muscular twitching/uremia DVT prophylaxis at all times Attending time spent 80 minutes Consult Acknowledgment - Thank you for your consult request.
--- NOTE | 2018-06-03 16:37 | CT SCAN REPORT ---
EXAMINATION: CT HEAD WITHOUT CONTRAST CLINICAL INFORMATION: Seizure. History of HIV. Assess for intracranial mass. COMPARISON: CT scan of the head 05/18/2018. TECHNIQUE: Contiguous axial imaging was performed from the skull base to vertex without intravenous administration of contrast. DLP: 957.76 mGy-cm FINDINGS: There is no evidence of acute intracranial hemorrhage or territorial infarction. No abnormal mass effect or midline shift is seen. Joseph to white matter differentiation is well preserved. No extra-axial fluid collections are identified. The ventricles are normal in size. There is no abnormal attenuation within the brain parenchyma. There has been a left lens extraction, unchanged. The soft tissues unremarkable. There are no acute osseous findings. The mastoid air cells are poorly pneumatized bilaterally. The paranasal sinuses are well-aerated. The nasal septum is deviated to the left. IMPRESSION: 1. There are no acute bleeds or territorial infarcts. No masses are demonstrated.
--- NOTE | 2018-06-03 17:06 | RADIOLOGY REPORT ---
EXAMINATION: XR PORTABLE CHEST CLINICAL INFORMATION: Seizure. Unresponsive. COMPARISON: Chest x-ray 05/25/2018 TECHNIQUE: Portable frontal view of the chest was obtained. FINDINGS: Cardiac silhouette is normal in size. Lungs are adequately aerated. No lobar consolidation. Overall interval decrease in prominence of diffuse interstitial markings. Some mild bibasilar opacities are most suggestive of dependent atelectasis. A more nodular ill-defined opacity in the right infrahilar region is nonspecific but appears stable and is felt to represent attenuation artifact from overlying vascular structures. There is no gross pleural effusion. No pneumothorax. IMPRESSION: Interval decrease in prominence of diffuse interstitial markings. No lobar consolidation, gross pleural effusion or pneumothorax.
--- NOTE | 2018-06-03 19:33 | Cons- Nephrology ---
General Information and HPI Consulting Request Date of Consult: 06/03/18 Requested By: Mae Rudolph MD Reason for Consult: CKD/ABDIRSAHID Source of Information: patient, old records Exam Limitations: clinical condition, poor historian History of Present Illness: The patient is a 58-year-old man with a amputated past medical history that includes AIDS for which he is on anti-retroviral therapy (followed at [facility]) apparently with an undetectable viral load, hepatitis C successfully treated with Harvoni, left BKA for MRSA osteomyelitis, chronic ulcers on the right foot, status post back surgery with a neurogenic bladder for which she normally self catheterizes complicated by recurrent urinary tract infections, status post resection of either a urethral stricture or flap, and chronic kidney disease with a baseline serum creatinine that had been in the mid twos at the end of last year but with bouts of acute kidney injury most recently with a serum creatinine of 9.8 on May 18, 2018 which then came down to 4.2 with fluids and Mcgregor drainage at the time of discharge on May 27. He now comes in because of right groin pain and is found to have a nondisplaced fracture along the right superior pubic ramus extending into the acetabulum as well as a minimally displaced fracture of the right inferior pubic ramus. This was apparently at the result of a recent fall. On admission yesterday his creatinine was noted to be 7.8, 7.9 today with normal potassium levels but serum bicarbonate ranging from 11-14. He has not been hypotensive or febrile and has not been exposed to parenteral contrast or NSAIDs. This afternoon he developed significant myoclonic activity and possibly a seizure resulting in his transfer to ICU. He is found to be severely acidemic with a pH of 7.11, PCO2 36 and bicarbonate 11 consistent with a mixed metabolic and respiratory acidosis. Past medical history is as noted above Medications: See below Allergies erythromycin Family history: Negative for kidney disease Social history: Active smoker, denies alcohol or drug abuse at this time Allergies/Medications Allergies: Coded Allergies: erythromycin base (UNKNOWN 12/02/16) Home Med List: Abacavir Sulfate (Abacavir) 300 MG TABLET 1 TAB PO DAILY ANTIVIRAL (Reported) Albuterol Sulfate (Proair Hfa) 90 MCG HFA.AER.AD 2 PUF INH Q4-6 PRN PRN ASTHMA (Reported) Alprazolam (Xanax) 0.5 MG TABLET 1 TAB PO Q6P PRN ANXIETY/SLEEP (Reported) Calcium Carbonate/Vitamin D3 (Calcium 500 + D Tablet) (Unknown Strength) TABLET (Unknown Dose) PO DAILY SUPPLEMENT (Reported) Dextran 70/Hypromellose (Artificial Tears) 1 EACH DROPERETTE 1 GTT OS BID OCULAR (Reported) Dolutegravir Sodium (Tivicay) 50 MG TABLET 1 TAB PO DAILY HIV (Reported) Folic Acid 1 MG TABLET 1 MG PO DAILY VITAMIN DEFICIENCY Gabapentin (Neurontin) 300 MG CAPSULE 1 CAP PO BID NEUROPATHY (Reported) Lactulose 10 GRAM/15 ML SOLUTION 30 ML PO QAM ENCEPHALOPATHY (Reported) Multiple Vitamin (Multivitamins) 1 EACH TABLET 1 TAB PO DAILY SUPPLEMENT ( Reported) Oxycodone HCl 30 MG TABLET 1 TAB PO Q4-6H PRN PAIN (Reported) Oxycodone HCl (Oxycontin) 40 MG TAB.ER.12H 1 TAB PO BID CHRINIC PAIN ( Reported) Potassium Chloride 20 MEQ TAB.ER.PRT 1 TAB PO DAILY Hypokalemia Prednisolone Acetate (Omnipred) 1 % DROPS.SUSP 1 GTT OS 4 TIMES/DAY OCULAR ( Reported) Sodium Bicarbonate 650 MG TABLET 2 TAB PO Q6 acidosis/ABDIRASHID . Thiamine HCl (Vitamin B-1) 100 MG TABLET 100 MG PO DAILY VITAMIN DEFICIENCY Trazodone HCl 100 MG TABLET 200 MG PO QHS PRN SLEEP (Reported) Past History Travel History Traveled to [place] past 21 day No Medical History Blood Transfusion Hx: Yes Neurological: NONE EENT: NONE Cardiovascular: NONE Respiratory: asthma Gastrointestinal: NONE Hepatic: hepatitis C (s/p Tx with Harvoni) Renal: chronic kidney disease, neurogenic bladder Musculoskeletal: BACK ISSUES Psychiatric: anxiety Endocrine: NONE Blood Disorders: HIV Cancer(s): NONE HEALTHCARE NETWORK PRICING CONSULTANT/Reproductive: NONE Surgical History Surgical History: L BKA status post back surgeries Psychosocial History Where Do You Live? Home Who Do You Live With? self Services at Home: Nursing Primary Language: Maltese Smoking Status: Former Smoker ETOH Use: occasional use Illicit Drug Use: denies illicit drug use Functional Ability ADLs Independent: dressing, eating, toileting, bathing. Ambulation: independent IADLs Independent: shopping, housework, finances, food prep, telephone, transportation , medication admin. Exam & Diagnostic Data Vital Signs and I&O Vital Signs Date Time Temp Pulse Resp B/P B/P Pulse O2 O2 Flow FiO2 Mean Ox Delivery Rate 09/05 1600 97.3 95 26 134/78 99 Venti Mask 55% 06/03 1600 99 Venti Mask 55% 06/03 1457 97.5 73 18 130/75 95 Room Air 06/03 0800 Room Air 06/03 0631 97.5 74 18 130/74 94 Room Air 06/03 0000 Room Air 06/02 2348 97.5 67 18 130/78 96 Room Air 06/02 2125 97.5 76 18 147/65 97 Room Air Intake & Output 06/03 0400 06/02 0400 06/01 0400 Intake Total 725 240 Output Total 1350 200 Balance -625 40 Intake, IV 725 Intake, Oral 0 240 Number 0 Bowel Movements Output, Urine 1350 200 Patient 220 lb 220 lb Weight Weight Estimated Measurement Method Physical Exam: General: Well-developed chronically ill-appearing white male on O2 by facemask Skin: No jaundice, multiple ecchymoses and +petechial rash most notable on lower extremities, left greater than right HEENT: Conjunctivae pale, sclerae anicteric, left corneal haziness, mucous membranes dry Neck: Without masses or thyromegaly, no supraclavicular or cervical adenopathy, +JVD Chest: Clear anterolaterally Heart: Regular rate and rhythm without S3 or rub Abdomen: Soft and nontender without palpable masses or organomegaly Extremities: Left BKA, no significant edema, petechial rash as described Neuro: Awake and alert, no focal findings, no asterixis but positive myoclonic activity; negative Chvostek sign Assessment/Plan Assessment/Recommendations Assessment: 58 year-old man with multiple comorbidities as outlined above including a neurogenic bladder with known recurrent urinary tract infections (he self catheterizes) and chronic kidney disease with a baseline creatinine that had been approximately 2 but subsequently only came down to 4.2 after a recent bout of ABDIRASHID (creatinine 9.8), now comes in with right groin pain related to right pelvic fractures following recent fall, and is found to be in ABDIRASHID again complicated by metabolic acidosis, hyperphosphatemia, and now increasing neuromuscular irritability. My concern is that this may represent uremic neuromuscular toxicity. There may very well be a prerenal component here in which case volume expansion could result in significant renal improvement. Of course, attention will need to be paid to his acid base and neurologic status with the understanding that should volume expansion with bicarbonate-containing solutions proved to be ineffective or impossible (because of development of CHF) , then we will need to initiate hemodialysis, if the patient agrees. Finally, sepsis needs to be considered including empiric antibiotic coverage following cultures. Recommendations: 1. Blood and urine cultures followed by empiric antibiotic coverage 2. IV isotonic bicarbonate at 100 cc/h for now 3. Recheck chemistries and arterial blood gas later this evening 4. Would revisit the question of his CODE STATUS especially with regard to intubation which may become necessary should he develop pulmonary congestion with worsening hypoxia and hypercarbia 5. If no improvement by tomorrow, or certainly if he worsens, would proceed with placement of a dialysis catheter if patient and family agree Thank you. We will follow along with you.
[2018-06-03 20:00] VITALS: BP 109/72
[2018-06-03 20:39] LABS: ABSOLUTE BASOPHIL COUNT 0 /CUMM (0.0-0.2); ABSOLUTE EOSINOPHIL COUNT 0 /CUMM (0.0-0.7); ABSOLUTE GRANULOCYTE CT 1.9 /CUMM (1.4-6.5); ABSOLUTE MONOCYTE COUNT 0.2 /CUMM (0.10-0.60); BASOPHIL % 0.5 % (0.0-2.0); EOSINOPHIL % 1.1 % (0-5); GRANULOCYTE % 59.5 % (42.2-75.2); HEMATOCRIT 23.7 % (42-52); MEAN CORPUSCULAR HGB 31.9 PG (27.0-31.0); MEAN CORPUSCULAR HGB CONC 34.5 G/DL (33.0-37.0); MEAN CORPUSCULAR VOLUME 92.5 FL (80.0-94.0); PLATELET COUNT 119 /CUMM (130-400); RBC DISTRIBUTION WIDTH 15.9 % (11.5-14.5); RED BLOOD CELL CT 2.57 /CUMM (4.70-6.10); WHITE BLOOD CELL COUNT 3.2 /CUMM (4.8-10.8)
[2018-06-04] VITALS: BP 100/60
[2018-06-04 04:58] LABS: ABSOLUTE BASOPHIL COUNT 0 /CUMM (0.0-0.2); ABSOLUTE EOSINOPHIL COUNT 0.1 /CUMM (0.0-0.7); ABSOLUTE GRANULOCYTE CT 1.1 /CUMM (1.4-6.5); ABSOLUTE LYMPH COUNT 1.9 /CUMM (1.2-3.4); ABSOLUTE MONOCYTE COUNT 0.2 /CUMM (0.10-0.60); BASOPHIL % 0.6 % (0.0-2.0); EOSINOPHIL % 2.2 % (0-5); GRANULOCYTE % 34.2 % (42.2-75.2); HEMATOCRIT 21.9 % (42-52); MEAN CORPUSCULAR HGB 32.4 PG (27.0-31.0); MEAN CORPUSCULAR HGB CONC 34.7 G/DL (33.0-37.0); MEAN CORPUSCULAR VOLUME 93.6 FL (80.0-94.0); MEAN PLATELET VOLUME 7.3 FL (7.4-10.4); PLATELET COUNT 102 /CUMM (130-400); RBC DISTRIBUTION WIDTH 15.7 % (11.5-14.5); RED BLOOD CELL CT 2.34 /CUMM (4.70-6.10); WHITE BLOOD CELL COUNT 3.3 /CUMM (4.8-10.8)
[2018-06-04 05:04] LABS: PT 12.6 SEC (9.4-12.5)
--- NOTE | 2018-06-04 07:36 | PN- Resident CRCU ---
Renetta Son 06/04/18 0736: Subjective HPI/CRCU Issues: Metabolic acidosis Acute on chronic kidney injury 24 Hour Events: No overnight events reported. Seen and examined patient. He is very adamant about eating today. Also is complaining of back and leg pain and would like his pain medications adjusted. Denies any fever, chills, shortness of breath, chest pain. Objective Vital Signs & I&O Last 8 Hrs of Vitals and I&O: Laboratory Tests 06/04 06/04 06/04 UNK 0930 0345 Chemistry Sodium (137 - 145 mmol/L) 141 Potassium (3.5 - 5.1 mmol/L) 3.6 Chloride (98 - 107 mmol/L) 111 H Carbon Dioxide (22 - 30 mmol/L) 20 L Anion Gap (5 - 16) 9 BUN (9 - 20 mg/dL) 68 H Creatinine (0.7 - 1.2 mg/dL) 7.2 *H Estimated GFR (>60 ml/min) 8 L Glucose (65 - 99 mg/dL) 101 H Calcium (8.4 - 10.2 mg/dL) 6.4 L Phosphorus (2.5 - 4.5 mg/dL) 9.2 H Magnesium (1.6 - 2.3 mg/dL) 2.9 H Total Bilirubin (0.2 - 1.3 mg/dL) 0.3 AST (17 - 59 U/L) 25 ALT (21 - 72 U/L) 24 Albumin (3.5 - 5.0 g/dL) 2.4 L Coagulation PT (9.4 - 12.5 SEC) 12.6 H INR (0.90 - 1.17) 1.15 Hematology CBC w Diff NO MAN DIFF REQ WBC (4.8 - 10.8 /CUMM) 3.3 L RBC (4.70 - 6.10 /CUMM) 2.34 L Hgb (14.0 - 18.0 G/DL) 7.6 L Hct (42 - 52 %) 21.9 L MCV (80.0 - 94.0 FL) 93.6 MCH (27.0 - 31.0 PG) 32.4 H MCHC (33.0 - 37.0 G/DL) 34.7 RDW (11.5 - 14.5 %) 15.7 H Plt Count (130 - 400 /CUMM) 102 L MPV (7.4 - 10.4 FL) 7.3 L Gran % (42.2 - 75.2 %) 34.2 L Lymphocytes % (20.5 - 51.1 %) 56.2 H Monocytes % (1.7 - 9.3 %) 6.8 Eosinophils % (0 - 5 %) 2.2 Basophils % (0.0 - 2.0 %) 0.6 Absolute Granulocytes (1.4 - 6.5 /CUMM) 1.1 L Absolute Lymphocytes (1.2 - 3.4 /CUMM) 1.9 Absolute Monocytes (0.10 - 0.60 /CUMM) 0.2 Absolute Eosinophils (0.0 - 0.7 /CUMM) 0.1 Absolute Basophils (0.0 - 0.2 /CUMM) 0 Urines Ur Random Creatinine (mg/dL) 43.3 Urine Total Volume (600 - 1500 ML/24HR) Cancelled 1600 H Urine Creatinine (1.0 - 2.0 g/24HR) 0.7 L Ur Sodium 24 Hour (30 - 90 mmol/L) Cancelled 72 Ur Potassium 24 Hour (25 - 125 mmol/24H) Cancelled 35.6 06/03 Blood Gas pH (7.35 - 7.45 PH) 7.24 *L pCO2 (35 - 45 TORR) 39 pO2 (80 - 100 TORR) 101 H HCO3 (21 - 28 MEQ/L) 17 L ABG O2 Sat (Measured) (>96.0 %) 96.0 P-50 (Temp Corrected) N Carboxyhemoglobin (1.5 - 5.0 %) 0.3 L O2 Concentration % 3L Temperature (97.0 - 100.0 FARH) 97.0 O2 Delivery Method NC Chemistry Vitamin C Pending Hematology Total Abs Lymphocytes Pending Miscellaneous Phlebotomy Draw Site RIGHT RADIAL 06/03 6620 1534 Chemistry Sodium (137 - 145 mmol/L) 142 Potassium (3.5 - 5.1 mmol/L) 3.9 Chloride (98 - 107 mmol/L) 114 H Carbon Dioxide (22 - 30 mmol/L) 16 L Anion Gap (5 - 16) 11 BUN (9 - 20 mg/dL) 66 H Creatinine (0.7 - 1.2 mg/dL) 7.7 *H Estimated GFR (>60 ml/min) 7 L Glucose (65 - 99 mg/dL) 104 H Calcium (8.4 - 10.2 mg/dL) 6.7 L Phosphorus (2.5 - 4.5 mg/dL) 9.5 H Magnesium (1.6 - 2.3 mg/dL) 3.0 H Total Bilirubin (0.2 - 1.3 mg/dL) 0.3 AST (17 - 59 U/L) 27 ALT (21 - 72 U/L) 21 Troponin I (<0.11 ng/ml) < 0.01 Cancelled Albumin (3.5 - 5.0 g/dL) 2.6 L Hematology CBC w Diff NO MAN DIFF REQ WBC (4.8 - 10.8 /CUMM) 3.2 L RBC (4.70 - 6.10 /CUMM) 2.57 L Hgb (14.0 - 18.0 G/DL) 8.2 L Hct (42 - 52 %) 23.7 L MCV (80.0 - 94.0 FL) 92.5 MCH (27.0 - 31.0 PG) 31.9 H MCHC (33.0 - 37.0 G/DL) 34.5 RDW (11.5 - 14.5 %) 15.9 H Plt Count (130 - 400 /CUMM) 119 L MPV (7.4 - 10.4 FL) 7.0 L Gran % (42.2 - 75.2 %) 59.5 Lymphocytes % (20.5 - 51.1 %) 33.0 Monocytes % (1.7 - 9.3 %) 5.9 Eosinophils % (0 - 5 %) 1.1 Basophils % (0.0 - 2.0 %) 0.5 Absolute Granulocytes (1.4 - 6.5 /CUMM) 1.9 Absolute Lymphocytes (1.2 - 3.4 /CUMM) 1.0 L Absolute Monocytes (0.10 - 0.60 /CUMM) 0.2 Absolute Eosinophils (0.0 - 0.7 /CUMM) 0 Absolute Basophils (0.0 - 0.2 /CUMM) 0 Immunology Lymphocyte Subset Cmmnt Pending Absolute CD3 Count Pending % CD3 Mature T-Lymphs Pending % CD4 [place] Pending Absolute CD4 Count Pending T-Help/Suppress Ratio Pending % CD8 Suppressor Pending Absolute CD8 Count Pending Serology HIV 1&2 RNA (PCR) Pending Urines Urine Color Cancelled Urine Clarity Cancelled Urine pH Cancelled Ur Specific [place] Cancelled Urine Protein Cancelled Urine Ketones Cancelled Urine Nitrite Cancelled Urine Bilirubin Cancelled Urine Urobilinogen Cancelled Ur Leukocyte Esterase Cancelled Ur Microscopic Cancelled Urine Hemoglobin Cancelled Urine Glucose Cancelled 06/03 06/03 06/03 1533 1530 1529 Blood Gas pH (7.35 - 7.45 PH) 7.11 *L pCO2 (35 - 45 TORR) 36 pO2 (80 - 100 TORR) 164 H HCO3 (21 - 28 MEQ/L) 11 L ABG O2 Sat (Measured) (>96.0 %) 97.0 Carboxyhemoglobin (1.5 - 5.0 %) 0.6 L O2 Concentration % 60% O2 Delivery Method PRB Chemistry Sodium Cancelled Potassium Cancelled Chloride Cancelled Carbon Dioxide Cancelled Anion Gap Cancelled BUN Cancelled Creatinine Cancelled BUN/Creatinine Ratio Cancelled Troponin I Cancelled Prolactin Cancelled Hematology CBC w Diff Cancelled WBC Cancelled RBC Cancelled Hgb Cancelled Hct Cancelled MCV Cancelled MCH Cancelled MCHC Cancelled RDW Cancelled Plt Count Cancelled MPV Cancelled Miscellaneous Phlebotomy Draw Site RIGHT RADIAL Microbiology Date/Time Procedure - Status Source Growth 06/03 1809 Blood Culture - RES BLOOD 06/03 1750 Blood Culture - RES BLOOD 06/03 1646 Surveillance Culture - RECD UPPER RESP 06/03 1646 Surveillance Culture - RECD GI 06/03 1643 Urine Culture - CAN URINE ROUT Cancelled: NO SAMPLE COLLECTED Intake & Output 06/04 1600 Intake Total 1850 Output Total 575 Balance 1275 Intake, IV 1250 Intake, Oral 600 Number 1 Bowel Movements Output, Urine 575 Patient 187 lb Weight Exam General Appearance: alert, awake, anxious Respiratory: normal breath sounds Cardiovascular: regular rate/rhythm Gastrointestinal: normal bowel sounds, soft Extremities: left Bka Current Medications: Current Medications Sig/Puma Start time Last Medication Dose Route Stop Time Status Admin Abacavir Sulfate 300 MG DAILY 06/03 0900 AC 06/04 PO 09 Acetaminophen 1,000 MG ONCE ONE 06/03 2345 CAN N/A 1 UNIT IV 06/03 2359 Acetaminophen 650 MG Q6P PRN 06/02 2145 AC 06/04 PO 0914 Alprazolam 0.5 MG Q6 06/03 1800 AC 06/04 PO 06/10 1759 1356 Alprazolam 0.5 MG TID 06/03 1549 DC PO 06/10 1548 Ampicillin Sodium/ 1,500 MG Q24H 06/03 1800 CAN Sulbactam Sodium IV Sodium Chloride 100 ML Dextrose/Sodium 1,000 ML Q13H 06/03 06 DC 06/03 Chloride IV 0551 Docusate Sodium 100 MG DAILY 06/03 900 AC 06/03 PO 0930 Dolutegravir Sodium 50 MG DAILY 06/03 09 AC 06/04 PO 0905 Folic Acid 1 MG DAILY 06/03 900 AC 06/04 PO 1354 Gabapentin 300 MG BID 06/03 900 DC 06/04 PO 09 Heparin Sodium 5,000 UNIT Q8 06/03 600 AC 06/04 (Porcine) SC 0523 Lactulose 20 GM DAILY 06/03 900 AC 06/04 PO 1300 Levetiracetam 500 MG BID 06/03 2100 DC 06/04 PO 09 Levetiracetam 1,000 MG ONCE ONE 06/03 1600 DC 06/03 PO 06/03 1601 1811 Morphine Sulfate 2 MG Q4P PRN 06/02 2345 AC 06/03 IV 2242 Multivitamins 1 TAB DAILY 06/03 900 AC 06/04 Therapeutic PO 1354 Oxycodone/ 0 .STK-MED ONE 06/04 0540 DC Acetaminophen PO Oxycodone/ 1 TAB Q6P PRN 06/02 2345 AC 06/04 Acetaminophen PO 0540 Polyethylene Glycol 17 GM DAILY 06/03 900 AC PO Senna 187 MG DAILY 06/03 09 AC 06/03 PO 0929 Sevelamer HCl 1,600 MG WM 06/03 1200 AC 06/04 PO 1354 Sodium Bicarbonate 75 MEQ CONTINOUS INFUSION 06/04 1000 r Sodium Chloride 1,000 ML IV Sodium Bicarbonate 150 MEQ Q10H 06/03 2200 DC Dextrose/Water 1,000 ML IV Sodium Bicarbonate 150 MEQ CONTINOUS INFUSION 06/03 1615 CAN Dextrose/Sodium 1,000 ML IV Chloride Sodium Bicarbonate 150 MEQ Q10H 06/03 1600 DC 06/04 Dextrose/Water 1,000 ML IV 0400 Sodium Bicarbonate 1,300 MG Q6 06/03 0030 DC 06/03 PO 1254 Sodium Phosphate 1 UNIT ONCE ONE 06/03 2345 DC 06/04 UT 06/03 2346 0040 Thiamine HCl 100 MG DAILY 06/03 0900 AC 06/04 PO 1354 Trazodone HCl 200 MG QPM PRN 06/02 2345 AC PO Vitamin A/Vitamin D 1 DEDRICK BID 06/03 2100 AC 06/04 TOP 0907 Impression/Plan Impression/Problem List Impression: 58-year-old man with AIDS, maintained on antiretroviral therapy, hepatitis C successfully treated with Harvoni, left BKA for MRSA osteomyelitis, chronic ulcers on the right foot, status post back surgery with a neurogenic bladder with self catheterization, complicated by recurrent urinary tract infections, status post resection of either a urethral stricture or flap, and chronic kidney disease, current admission for Plan: Respiratory Stable on 2 L nasal cannula Infection: Afebrile overnight, will follow off antibiotics for now Cardiology Patient was mildly hypotensive early this morning likely secondary to volume contraction will increase fluids. Metabolic Renal ultrasound significant for moderate right hydronephrosis which is not seen on the previous ultrasound 02/13/2017 Metabolic acidosis improving on bicarb drip will continue with half-normal saline +75 mEq of sodium bicarbonate per liter at 200 cc/h 1 L then decrease to 125cc/h as per nephrology. Per nephro patient does not require emergent dialysis at this time. Recommendations appreciate input Hematology H&H 7.6/21.9 today we will continue to monitor Alimentry Advance diet to renal dialysis diet Neurology EEG is again for contoured activity which could represent muscle artifact or myoclonic activity. Appreciate neurology recommendations. Will discontinue Keppra as there is no epileptogenic features identified on EEG. DVT prophylaxis Subcu heparin Full code Problem List: 1. ABDIRASHID (acute kidney injury) 2. [id number] kidney injury 3. HIV (human immunodeficiency virus infection) Pain Ratin Tomorrow's Labs & Rationales: cbc/icu Plan DVT/Prophylaxis: pharmacological Dexter Velasquez MD 06/04/18 1012: Attending MD Review Statement Attending Sign Off Attending Cosign Statement: I have: examined this patient, reviewed [facility] EMR data, personally reviewd images, discussd w/resident/PA/GUM MACHINE OPERATOR, discussed mgmt plan w/fidel, discussed mgmt plan w/CM, discussed mgmt plan w/pt, agreed w/resident/PA/GUM MACHINE OPERATOR, amended to note. Other Findings: Impression 58 year old man * RESOLVED - twitching/seizure like activity resulting in rapid response and transfer to the ICU - likely due to calcium vs. meds * R mid/lower lung field opacification IMPROVED - sputum with Klebsiella pneumoniae, Serratia Marcescens, MSSA - s/p antibiotics * acute on chronic renal failure * hx of HIV * hx of recurrent UTI's * s/p fall - rami fractures * hx of left BKA Plan Respiratory -monitor abg -cxr with improving opacities ID -follow off antibiotics -f/u all cultures CVS -monitor hemodynamics -increase rate of fluids Heme -coags, cbc -hbg goal >7 Metabolic -ins/outs -nephrology consultation -bicarbonate drip -will continue to discuss option and timing of HD Alimentary -diet Neuro -f/u EEG -f/u neurology consultation -unclear if seizure activity vs. muscular twitching/uremia DVT prophylaxis at all times Attending time spent 35 minutes
[2018-06-04 08:00] VITALS: BP 82/60
--- NOTE | 2018-06-04 10:40 | PN- Nephrology ---
Assessment/Plan Nephrology Assessment: 1. 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 ABDIRASHID which may in large part be prerenal secondary to decreased renal perfusion on the basis of volume contraction/hypotension; sepsis being considered; no apparent obstruction at this time. Renal function somewhat improved this morning 3. Hypotension -in part related to pain medications but suspect also an element of volume contraction 4. Neuromuscular irritability -much improved today; may have been related to narcotic medications although uremia may have also been playing a role (renal function improved today) 5. Metabolic acidosis -improved on IV isotonic sodium bicarbonate 6. Hyperphosphatemia 7. Severe anemia Suggestion: 1. Would change IV to half-normal saline +75 mEq of sodium bicarbonate per liter at 200 cc/h 1 L then decrease to 125cc/h 2. Recheck chemistries later today 3. Patient may eat as we will not be sending him to IR today for a catheter 4. Please avoid phosphate containing laxatives in the future 5. Restart phosphate binder (sevelamer) Subjective Subjective: Patient looks and feels much better this morning. Desperately wants to eat as he states he is very hungry. Blood pressure is low but he is nonoliguric and serum creatinine seems to be falling (7.2). Bicarbonate up to 20. Objective Vital Signs and I&Os Vital Signs Date Time Temp Pulse Resp B/P B/P Pulse O2 O2 Flow FiO2 Mean Ox Delivery Rate 06/04 040 98 Nasal 2.0L Cannula 06/04 0000 100 Nasal 3.0L Cannula 06/04 0000 96.6 88 18 100/60 100 Nasal 3.0L Cannula 06/03 2000 95 Nasal 4.0L Cannula 06/03 2000 96.9 72 18 109/72 92 Nasal 4.0L Cannula 06/03 1600 97.3 95 26 134/78 99 Venti Mask 55% 06/03 1600 99 Venti Mask 55% 06/03 145 97.5 73 18 130/75 95 Room Air Intake & Output 06/04 040 Intake Total 1000 470 725 240 Output Total 188 659 1450 200 Balance 620 70 -625 40 Intake, IV 800 350 725 Intake, Oral 200 120 0 240 Number 0 Bowel Movements Output, Urine 383 087 5468 200 Patient 187 lb 220 lb 220 lb Weight Weight Bed scale Estimated Measurement Method Physical Exam: General: Well-developed chronically ill-appearing white male in NAD Skin: No jaundice, multiple ecchymoses and +petechial rash most notable on lower extremities, left greater than right HEENT: Conjunctivae pale, sclerae anicteric, left corneal haziness, mucous membranes dry Neck: Without masses or thyromegaly, no supraclavicular or cervical adenopathy, +JVD Chest: Clear anterolaterally Heart: Regular rate and rhythm without S3 or rub Abdomen: Soft and nontender without palpable masses or organomegaly Extremities: Left BKA, no significant edema, petechial rash as described Neuro: Awake and alert, no focal findings, no asterixis or myoclonus today Results Pertinent Lab Results: Laboratory Tests 06/04 06/04 0930 0345 Chemistry Sodium (137 - 145 mmol/L) 141 Potassium (3.5 - 5.1 mmol/L) 3.6 Chloride (98 - 107 mmol/L) 111 H Carbon Dioxide (22 - 30 mmol/L) 20 L Anion Gap (5 - 16) 9 BUN (9 - 20 mg/dL) 68 H Creatinine (0.7 - 1.2 mg/dL) 7.2 *H Estimated GFR (>60 ml/min) 8 L Glucose (65 - 99 mg/dL) 101 H Calcium (8.4 - 10.2 mg/dL) 6.4 L Phosphorus (2.5 - 4.5 mg/dL) 9.2 H Magnesium (1.6 - 2.3 mg/dL) 2.9 H Total Bilirubin (0.2 - 1.3 mg/dL) 0.3 AST (17 - 59 U/L) 25 ALT (21 - 72 U/L) 24 Albumin (3.5 - 5.0 g/dL) 2.4 L Coagulation PT (9.4 - 12.5 SEC) 12.6 H INR (0.90 - 1.17) 1.15 Hematology CBC w Diff NO MAN DIFF REQ WBC (4.8 - 10.8 /CUMM) 3.3 L RBC (4.70 - 6.10 /CUMM) 2.34 L Hgb (14.0 - 18.0 G/DL) 7.6 L Hct (42 - 52 %) 21.9 L MCV (80.0 - 94.0 FL) 93.6 MCH (27.0 - 31.0 PG) 32.4 H MCHC (33.0 - 37.0 G/DL) 34.7 RDW (11.5 - 14.5 %) 15.7 H Plt Count (130 - 400 /CUMM) 102 L MPV (7.4 - 10.4 FL) 7.3 L Gran % (42.2 - 75.2 %) 34.2 L Lymphocytes % (20.5 - 51.1 %) 56.2 H Monocytes % (1.7 - 9.3 %) 6.8 Eosinophils % (0 - 5 %) 2.2 Basophils % (0.0 - 2.0 %) 0.6 Absolute Granulocytes (1.4 - 6.5 /CUMM) 1.1 L Absolute Lymphocytes (1.2 - 3.4 /CUMM) 1.9 Absolute Monocytes (0.10 - 0.60 /CUMM) 0.2 Absolute Eosinophils (0.0 - 0.7 /CUMM) 0.1 Absolute Basophils (0.0 - 0.2 /CUMM) 0 Urines Ur Random Creatinine Pending Urine Total Volume Pending Urine Creatinine Pending 06/03 Blood Gas pH (7.35 - 7.45 PH) 7.24 *L pCO2 (35 - 45 TORR) 39 pO2 (80 - 100 TORR) 101 H HCO3 (21 - 28 MEQ/L) 17 L ABG O2 Sat (Measured) (>96.0 %) 96.0 P-50 (Temp Corrected) N Carboxyhemoglobin (1.5 - 5.0 %) 0.3 L O2 Concentration % 3L Temperature (97.0 - 100.0 FARH) 97.0 O2 Delivery Method NC Chemistry Vitamin C Pending Hematology Total Abs Lymphocytes Pending Miscellaneous Phlebotomy Draw Site RIGHT RADIAL 06/03 7626 1539 Chemistry Sodium (137 - 145 mmol/L) 142 Potassium (3.5 - 5.1 mmol/L) 3.9 Chloride (98 - 107 mmol/L) 114 H Carbon Dioxide (22 - 30 mmol/L) 16 L Anion Gap (5 - 16) 11 BUN (9 - 20 mg/dL) 66 H Creatinine (0.7 - 1.2 mg/dL) 7.7 *H Estimated GFR (>60 ml/min) 7 L Glucose (65 - 99 mg/dL) 104 H Calcium (8.4 - 10.2 mg/dL) 6.7 L Phosphorus (2.5 - 4.5 mg/dL) 9.5 H Magnesium (1.6 - 2.3 mg/dL) 3.0 H Total Bilirubin (0.2 - 1.3 mg/dL) 0.3 AST (17 - 59 U/L) 27 ALT (21 - 72 U/L) 21 Troponin I (<0.11 ng/ml) < 0.01 Cancelled Albumin (3.5 - 5.0 g/dL) 2.6 L Prolactin Cancelled Hematology CBC w Diff NO MAN DIFF REQ WBC (4.8 - 10.8 /CUMM) 3.2 L RBC (4.70 - 6.10 /CUMM) 2.57 L Hgb (14.0 - 18.0 G/DL) 8.2 L Hct (42 - 52 %) 23.7 L MCV (80.0 - 94.0 FL) 92.5 MCH (27.0 - 31.0 PG) 31.9 H MCHC (33.0 - 37.0 G/DL) 34.5 RDW (11.5 - 14.5 %) 15.9 H Plt Count (130 - 400 /CUMM) 119 L MPV (7.4 - 10.4 FL) 7.0 L Gran % (42.2 - 75.2 %) 59.5 Lymphocytes % (20.5 - 51.1 %) 33.0 Monocytes % (1.7 - 9.3 %) 5.9 Eosinophils % (0 - 5 %) 1.1 Basophils % (0.0 - 2.0 %) 0.5 Absolute Granulocytes (1.4 - 6.5 /CUMM) 1.9 Absolute Lymphocytes (1.2 - 3.4 /CUMM) 1.0 L Absolute Monocytes (0.10 - 0.60 /CUMM) 0.2 Absolute Eosinophils (0.0 - 0.7 /CUMM) 0 Absolute Basophils (0.0 - 0.2 /CUMM) 0 Immunology Lymphocyte Subset Cmmnt Pending Absolute CD3 Count Pending % CD3 Mature T-Lymphs Pending % CD4 [place] Pending Absolute CD4 Count Pending T-Help/Suppress Ratio Pending % CD8 Suppressor Pending Absolute CD8 Count Pending Serology HIV 1&2 RNA (PCR) Pending 06/03 06/03 06/03 1530 1529 1403 Blood Gas pH (7.35 - 7.45 PH) 7.11 *L pCO2 (35 - 45 TORR) 36 pO2 (80 - 100 TORR) 164 H HCO3 (21 - 28 MEQ/L) 11 L ABG O2 Sat (Measured) (>96.0 %) 97.0 Carboxyhemoglobin (1.5 - 5.0 %) 0.6 L O2 Concentration % 60% O2 Delivery Method PRB Chemistry Sodium (137 - 145 mmol/L) Cancelled 139 Potassium (3.5 - 5.1 mmol/L) Cancelled 3.9 Chloride (98 - 107 mmol/L) Cancelled 113 H Carbon Dioxide (22 - 30 mmol/L) Cancelled 15 L Anion Gap (5 - 16) Cancelled 11 BUN (9 - 20 mg/dL) Cancelled 66 H Creatinine (0.7 - 1.2 mg/dL) Cancelled 7.6 *H Estimated GFR (>60 ml/min) 7 L BUN/Creatinine Ratio (7 - 25 %) Cancelled 8.7 Calcium (8.4 - 10.2 mg/dL) 6.8 L Phosphorus (2.5 - 4.5 mg/dL) 9.0 H Magnesium (1.6 - 2.3 mg/dL) 2.9 H Troponin I Cancelled [id number] Pept (<125 pg/mL) 7470 H Albumin (3.5 - 5.0 g/dL) 2.7 L Prolactin (3.7 - 17.9 ng/mL) 35.6 H Hematology CBC w Diff Cancelled WBC Cancelled RBC Cancelled Hgb Cancelled Hct Cancelled MCV Cancelled MCH Cancelled MCHC Cancelled RDW Cancelled Plt Count Cancelled MPV Cancelled Miscellaneous Phlebotomy Draw Site RIGHT RADIAL 06/03 06/03 06/03 0701 0645 0340 Chemistry Sodium (137 - 145 mmol/L) 140 Potassium (3.5 - 5.1 mmol/L) 4.1 Chloride (98 - 107 mmol/L) 115 H Carbon Dioxide (22 - 30 mmol/L) 14 L Anion Gap (5 - 16) 11 BUN (9 - 20 mg/dL) 65 H Creatinine (0.7 - 1.2 mg/dL) 7.9 *H Estimated GFR (>60 ml/min) 7 L BUN/Creatinine Ratio (7 - 25 %) 8.2 Serum Osmolality (285 - 295 MOSM/KG) 316 H Creatine Kinase (55 - 170 U/L) 118 Prot Electrophoresis Pending Total Protein (PEP) Pending Albumin % (PEP) Pending [id number] Pending Nwetz-4-Mzhvtastk Pending Acbn-0-Whfsjmho Pending [id number]-[id number] Pending Gamma Globulins Pending Abnorm Protein Band 1 Pending Abnorm Protein Band 2 Pending Abnorm Protein Band 3 Pending Hematology CBC w Diff NO MAN DIFF REQ WBC (4.8 - 10.8 /CUMM) 4.4 L RBC (4.70 - 6.10 /CUMM) 2.56 L Hgb (14.0 - 18.0 G/DL) 8.9 L Hct (42 - 52 %) 24.3 L MCV (80.0 - 94.0 FL) 95.0 H MCH (27.0 - 31.0 PG) 34.6 H MCHC (33.0 - 37.0 G/DL) 36.5 RDW (11.5 - 14.5 %) 15.2 H Plt Count (130 - 400 /CUMM) 122 L MPV (7.4 - 10.4 FL) 7.4 Gran % (42.2 - 75.2 %) 55.4 Lymphocytes % (20.5 - 51.1 %) 35.7 Monocytes % (1.7 - 9.3 %) 6.2 Eosinophils % (0 - 5 %) 2.0 Basophils % (0.0 - 2.0 %) 0.7 Absolute Granulocytes (1.4 - 6.5 /CUMM) 2.4 Absolute Lymphocytes (1.2 - 3.4 /CUMM) 1.6 Absolute Monocytes (0.10 - 0.60 /CUMM) 0.3 Absolute Eosinophils (0.0 - 0.7 /CUMM) 0.1 Absolute Basophils (0.0 - 0.2 /CUMM) 0 Immunology Complement C3 Pending Complement C4 Pending Toxicology Urine Opiates Screen (>2000 NG/ML) 1519.00 Methadone Screen (>300 NG/ML) < 40 Barbiturate Screen (>200 NG/ML) < 60 Ur Phencyclidine Scrn (>25 NG/ML) < 6.00 Amphetamines Screen (>1000 NG/ML) < 100 U Benzodiazepines Scrn (>200 NG/ML) 584 H Urine Cocaine Screen (>300 NG/ML) < 50 Urine Cannabis Screen (>50 NG/ML) < 5.00 Urines Ur Random Creatinine (mg/dL) 41.2 Ur Random Sodium (30 - 90 mmol/L) 73 Ur Random Potassium (mmol/L) 25.6 Fraction Sodium Excret (<1% %) 9.9 H 06/02 06/02 2153 1858 Chemistry Sodium (137 - 145 mmol/L) 139 Potassium (3.5 - 5.1 mmol/L) 4.9 Chloride (98 - 107 mmol/L) 115 H Carbon Dioxide (22 - 30 mmol/L) 11 L Anion Gap (5 - 16) 13 BUN (9 - 20 mg/dL) 68 H Creatinine (0.7 - 1.2 mg/dL) 7.8 *H Estimated GFR (>60 ml/min) 7 L BUN/Creatinine Ratio (7 - 25 %) 8.7 Glucose (65 - 99 mg/dL) 103 H Calcium (8.4 - 10.2 mg/dL) 7.0 L Phosphorus (2.5 - 4.5 mg/dL) 9.1 H Total Bilirubin (0.2 - 1.3 mg/dL) 0.5 AST (17 - 59 U/L) 29 ALT (21 - 72 U/L) 19 L Alkaline Phosphatase (< 127 U/L) 126 Total Protein (6.3 - 8.2 g/dL) 7.7 Albumin (3.5 - 5.0 g/dL) 3.0 L Globulin (1.9 - 4.2 gm/dL) 4.7 H Albumin/Globulin Ratio (1.1 - 2.2 %) 0.6 L Hematology CBC w Diff NO MAN DIFF REQ WBC (4.8 - 10.8 /CUMM) 4.8 RBC (4.70 - 6.10 /CUMM) 2.76 L Hgb (14.0 - 18.0 G/DL) 9.5 L Hct (42 - 52 %) 26.6 L MCV (80.0 - 94.0 FL) 96.4 H MCH (27.0 - 31.0 PG) 34.4 H MCHC (33.0 - 37.0 G/DL) 35.7 RDW (11.5 - 14.5 %) 15.6 H Plt Count (130 - 400 /CUMM) 125 L MPV (7.4 - 10.4 FL) 7.8 Gran % (42.2 - 75.2 %) 57.5 Lymphocytes % (20.5 - 51.1 %) 35.2 Monocytes % (1.7 - 9.3 %) 5.6 Eosinophils % (0 - 5 %) 1.0 Basophils % (0.0 - 2.0 %) 0.7 Absolute Granulocytes (1.4 - 6.5 /CUMM) 2.7 Absolute Lymphocytes (1.2 - 3.4 /CUMM) 1.7 Absolute Monocytes (0.10 - 0.60 /CUMM) 0.3 Absolute Eosinophils (0.0 - 0.7 /CUMM) 0 Absolute Basophils (0.0 - 0.2 /CUMM) 0 Urines Urine Color (YEL,AMB,STR) YEL Urine Clarity (CLEAR) TURBD H Urine pH (5.0 - 8.0) 6.0 Ur Specific [place] (1.001 - 1.035) 1.025 Urine Protein (NEG,<30 MG/DL) 100 H Urine Ketones (NEG) TRACE H Urine Nitrite (NEG) POS H Urine Bilirubin (NEG) NEG Urine Urobilinogen (0.1 - 1.0 EU/dl) 0.2 Ur Leukocyte Esterase (NEG) LARGE H Ur Microscopic SEDIMENT EXAMINED Urine RBC (0 - 5 /HPF) 15-25 H Urine WBC (0 - 2 /HPF) PACKD H Ur Epithelial Cells (NONE,FEW) FEW Urine Bacteria (NEG/NONE) PACKD H Urine Mucus (FEW,NONE) FEW Urine Hemoglobin (NEG) LARGE H Urine Glucose (N MG/DL) 250 H
--- NOTE | 2018-06-04 12:51 | Cons- Neurology ---
General Information and HPI Consulting Request Date of Consult: 06/04/18 Requested By: Mae Rudolph MD History of Present Illness: 58-year-old male with multiple medical problems including HIV, hepatitis C, worsening chronic kidney disease and chronic low back pain, admitted with severe right inguinal pain following a recent fall. He was found to have a right pubic fracture which is currently being treated conservatively. Yesterday, on route to a test, he was noted to have twitching activity for which a rapid response was called. The resident staff, on the scene fairly quickly, did report some minimal right facial twitching however he was fully awake and alert. The patient himself was aware of brief twitching all over". He has no prior history of seizure. It is pertinent to note that he has had significant metabolic derangements with metabolic acidosis and a pH of 7.1 as well as progressive kidney dysfunction with a rising creatinine to 7.7. Allergies/Medications Allergies: Coded Allergies: erythromycin base (UNKNOWN 12/02/16) Home Med List: Abacavir Sulfate (Abacavir) 300 MG TABLET 1 TAB PO DAILY ANTIVIRAL (Reported) Albuterol Sulfate (Proair Hfa) 90 MCG HFA.AER.AD 2 PUF INH Q4-6 PRN PRN ASTHMA (Reported) Alprazolam (Xanax) 0.5 MG TABLET 1 TAB PO Q6P PRN ANXIETY/SLEEP (Reported) Calcium Carbonate/Vitamin D3 (Calcium 500 + D Tablet) (Unknown Strength) TABLET (Unknown Dose) PO DAILY SUPPLEMENT (Reported) Dextran 70/Hypromellose (Artificial Tears) 1 EACH DROPERETTE 1 GTT OS BID OCULAR (Reported) Dolutegravir Sodium (Tivicay) 50 MG TABLET 1 TAB PO DAILY HIV (Reported) Folic Acid 1 MG TABLET 1 MG PO DAILY VITAMIN DEFICIENCY Gabapentin (Neurontin) 300 MG CAPSULE 1 CAP PO BID NEUROPATHY (Reported) Lactulose 10 GRAM/15 ML SOLUTION 30 ML PO QAM ENCEPHALOPATHY (Reported) Multiple Vitamin (Multivitamins) 1 EACH TABLET 1 TAB PO DAILY SUPPLEMENT ( Reported) Oxycodone HCl 30 MG TABLET 1 TAB PO Q4-6H PRN PAIN (Reported) Oxycodone HCl (Oxycontin) 40 MG TAB.ER.12H 1 TAB PO BID CHRINIC PAIN ( Reported) Potassium Chloride 20 MEQ TAB.ER.PRT 1 TAB PO DAILY Hypokalemia Prednisolone Acetate (Omnipred) 1 % DROPS.SUSP 1 GTT OS 4 TIMES/DAY OCULAR ( Reported) Sodium Bicarbonate 650 MG TABLET 2 TAB PO Q6 acidosis/ABDIRASHID . Thiamine HCl (Vitamin B-1) 100 MG TABLET 100 MG PO DAILY VITAMIN DEFICIENCY Trazodone HCl 100 MG TABLET 200 MG PO QHS PRN SLEEP (Reported) Review of Systems Review of Systems: Notable for recent fall with secondary pain in the right inguinal region, chronic back pain. 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 Home Who Do You Live With? self Services at Home: Nursing Primary Language: Khmer Smoking Status: Former Smoker ETOH Use: occasional use Illicit Drug Use: denies illicit drug use Functional Ability ADLs Independent: dressing, eating, toileting, bathing. Ambulation: independent IADLs Independent: shopping, housework, finances, food prep, telephone, transportation , medication admin. Exam & Diagnostic Data Vital Signs and I&O Vital Signs Date Time Temp Pulse Resp B/P B/P Pulse O2 O2 Flow FiO2 Mean Ox Delivery Rate 06/04 800 98 Nasal 3.0L Cannula 06/04 08 96.7 52 18 82/60 98 Nasal 3.0L Cannula 06/04 0400 98 Nasal 2.0L Cannula 06/04 0000 100 Nasal 3.0L Cannula 06/04 0000 96.6 88 18 100/60 100 Nasal 3.0L Cannula 06/03 2000 95 Nasal 4.0L Cannula 06/03 2000 96.9 72 18 109/72 92 Nasal 4.0L Cannula 06/03 1600 97.3 95 26 134/78 99 Venti Mask 55% 06/03 1600 99 Venti Mask 55% 06/03 1457 97.5 73 18 130/75 95 Room Air Intake & Output 06/04 0800 06/04 0000 Intake Total 1000 470 Output Total 380 400 Balance 620 70 Intake, IV 800 350 Intake, Oral 200 120 Output, Urine 380 400 Patient 187 lb 187 lb Weight Weight Bed scale Measurement Method Pleasant middle-aged male in no acute distress. The head was normocephalic and atraumatic. He was fully awake, alert and cooperative. Speech was fluent. Higher cortical function was grossly intact. Pupils are equal. Extraocular movements were full. There was no nystagmus. Face was symmetric. Hearing was grossly normal. Tongue was midline. He was edentulous. The motor examination showed no drift of the upper extremities. There was a left below-knee amputation. Manual muscle testing of the right lower extremity was limited due to his recent fracture and secondary pain. Deep tendon reflexes were diffusely hypoactive. The right plantar was neutral. There was no ataxia on finger-to- nose testing. He did have reproducible asterixis with the arms outstretched, wrists dorsiflexed and finger spread. CAT scan of the head showed no acute abnormalities. Assessment/Plan Assessment: By history, the patient's presentation suggests mild clonus in the setting of significant metabolic derangements. He continues to have evidence of mild asterixis. He was empirically started on Keppra. Recommendations: We will review the patient's EEG. He may remain on renal doses of Keppra for the time being. Should there be no significant epileptiform activity on EEG, we would suggest discontinuation of Keppra and that he be followed clinically. Should there indeed be further presumed seizure activity, he may transiently be treated with lorazepam and anticonvulsants restarted. Consult Acknowledgment - Thank you for your consult request.
--- NOTE | 2018-06-04 13:45 | ELECTROENCEPHALOGRAM REPORT ---
Electroencephalogram Report Electroencephalogram Results Date of service: 06/03/18 [facility] Technical Architect: Graeme Nichols EEG Number: [id number] Test Utilizes: 10-20 system, 21 lead 18 channel digital recording Pertinent Hx/Physical/Neuro Findings/Clin Diagnosis: Irregular twitching activity. Rule out seizure. Inpatient Medications: Current Medications Sig/Puma Start time Last Medication Dose Route Stop Time Status Admin Abacavir Sulfate 300 MG DAILY 06/03 900 AC 06/04 PO 0905 Acetaminophen 1,000 MG ONCE ONE 06/03 2345 CAN N/A 1 UNIT IV 06/03 2359 Acetaminophen 650 MG Q6P PRN 06/02 2145 AC 06/04 PO 0914 Alprazolam 0.5 MG Q6 06/03 1800 AC 06/04 PO 06/10 1759 0539 Alprazolam 0.5 MG TID 06/03 1549 DC PO 06/10 1548 Ampicillin Sodium/ 1,500 MG Q24H 06/03 1800 CAN Sulbactam Sodium IV Sodium Chloride 100 ML Dextrose/Sodium 1,000 ML Q13H 06/03 600 DC 06/03 Chloride IV 0551 Docusate Sodium 100 MG DAILY 06/03 900 AC 06/03 PO 0930 Dolutegravir Sodium 50 MG DAILY 06/03 09 AC 06/04 PO 0905 Folic Acid 1 MG DAILY 06/03 900 AC 06/03 PO 0930 Gabapentin 300 MG BID 06/03 900 DC 06/04 PO 0906 Heparin Sodium 5,000 UNIT Q8 06/03 0600 AC 06/04 (Porcine) SC 0523 Lactulose 20 GM DAILY 06/03 900 AC PO Levetiracetam 500 MG BID 06/03 2100 AC 06/04 PO 0906 Levetiracetam 1,000 MG ONCE ONE 06/03 1600 DC 06/03 PO 06/03 1601 1811 Morphine Sulfate 2 MG Q4P PRN 06/02 2345 AC 06/03 IV 2242 Multivitamins 1 TAB DAILY 06/03 900 AC 06/03 Therapeutic PO 09 Oxycodone/ 0 .STK-MED ONE 06/04 0540 DC Acetaminophen PO Oxycodone/ 1 TAB Q6P PRN 06/02 2345 AC 06/04 Acetaminophen PO 0540 Polyethylene Glycol 17 GM DAILY 06/03 900 AC PO Senna 187 MG DAILY 06/03 900 AC 06/03 PO 0929 Sevelamer HCl 1,600 MG WM 06/03 1200 AC 06/03 PO 1327 Sodium Bicarbonate 75 MEQ CONTINOUS INFUSION 06/04 1000 AC Sodium Chloride 1,000 ML IV Sodium Bicarbonate 150 MEQ Q10H 06/03 2200 DC Dextrose/Water 1,000 ML IV Sodium Bicarbonate 150 MEQ CONTINOUS INFUSION 06/03 1615 CAN Dextrose/Sodium 1,000 ML IV Chloride Sodium Bicarbonate 150 MEQ Q10H 06/03 1600 DC 06/04 Dextrose/Water 1,000 ML IV 0400 Sodium Bicarbonate 150 MEQ CONTINOUS INFUSION 06/03 0730 DC Dextrose/Water 1,000 ML IV Sodium Bicarbonate 1,300 MG Q6 06/03 0030 DC 06/03 PO 1254 Sodium Phosphate 1 UNIT ONCE ONE 06/03 2345 DC 06/04 LA 06/03 2346 0040 Thiamine HCl 100 MG DAILY 06/03 0900 AC 06/03 PO 0929 Trazodone HCl 200 MG QPM PRN 06/02 2345 AC PO Vitamin A/Vitamin D 1 DEDRICK BID 06/03 2100 AC 06/04 TOP 0907 Interpretation: The predominant posterior background rhythm in the waking state consists of poorly modulated 6-7 CPS activity. Lower voltage faster frequencies was seen over the anterior head regions bilaterally. Intermittent, nonrhythmic sharp activity is seen irregularly throughout the recording without clear-cut epileptiform features. No focal abnormalities were noted. Hyperventilation and photic stimulation was not performed. Impression: Abnormal EEG due to mild generalized slowing of the background rhythm consistent with diffuse cerebral dysfunction, nonspecific. The sharply contoured activity as noted above either represents muscle artifact or myoclonic activity. No epileptiform features were identified.
--- NOTE | 2018-06-04 14:26 | ULTRASOUND REPORT ---
EXAMINATION: US RETROPERITONEAL COMPLETE (RENAL) CLINICAL INFORMATION: Worsening renal failure.. COMPARISON: Renal ultrasound of 02/13/2017. TECHNIQUE: Real-time imaging of the kidneys and bladder. FINDINGS: RIGHT KIDNEY: 9.7 x 5.4 x 4.7 cm (SAG x AP x TRV). The kidney is normal in size, contour, and echogenicity. Renal cortical thickness is normal. No calculi or focal parenchymal lesions. There is moderate right hydronephrosis. LEFT KIDNEY: 9.7 x 4.0 x 5.0 cm (SAG x AP x TRV). The kidney is normal in size, contour, and echogenicity. Renal cortical thickness is normal. No calculi or focal parenchymal lesions. No hydronephrosis. BLADDER: Urinary bladder is decompressed by Mcgregor catheter. No ureteral jets are identified. OTHER: Small gallstones are seen within the gallbladder which otherwise has a normal wall thickness. No pericholecystic fluid collections identified. IMPRESSION: Moderate right hydronephrosis not seen on the previous renal ultrasound of 02/13/2017..
[2018-06-04 16:00] VITALS: BP 90/60
[2018-06-05] VITALS: BP 104/60
[2018-06-05 06:05] LABS: ABSOLUTE BASOPHIL COUNT 0 /CUMM (0.0-0.2); ABSOLUTE EOSINOPHIL COUNT 0.1 /CUMM (0.0-0.7); ABSOLUTE GRANULOCYTE CT 1.3 /CUMM (1.4-6.5); ABSOLUTE LYMPH COUNT 1.4 /CUMM (1.2-3.4); ABSOLUTE MONOCYTE COUNT 0.2 /CUMM (0.10-0.60); BASOPHIL % 0.6 % (0.0-2.0); EOSINOPHIL % 2.1 % (0-5); GRANULOCYTE % 42.9 % (42.2-75.2); HEMATOCRIT 23.2 % (42-52); MEAN CORPUSCULAR HGB 31.4 PG (27.0-31.0); MEAN CORPUSCULAR HGB CONC 33.9 G/DL (33.0-37.0); MEAN CORPUSCULAR VOLUME 92.6 FL (80.0-94.0); MEAN PLATELET VOLUME 6.9 FL (7.4-10.4); PLATELET COUNT 89 /CUMM (130-400); RBC DISTRIBUTION WIDTH 15.7 % (11.5-14.5); RED BLOOD CELL CT 2.51 /CUMM (4.70-6.10)
--- NOTE | 2018-06-05 07:31 | PN- Resident CRCU ---
AntviviRenetta 06/05/18 0731: Subjective HPI/CRCU Issues: severe Metabolic acidosis-resolved Acute on chronic kidney injury 24 Hour Events: No overnight events reported. Patient is concerned regarding his pain medication regimen we discussed that we could start his OxyContin at half his home dose explained to the patient that this could be leading to his low blood pressure. Objective Vital Signs & I&O Last 8 Hrs of Vitals and I&O: Intake & Output 06/05 1600 06/05 0800 06/05 0000 Intake Total 1365 2065 Output Total 1300 400 Balance 65 1665 Intake, IV 885 1345 Intake, Oral 480 720 Number 1 1 Bowel Movements Output, Urine 1300 400 Laboratory Tests 06/05 06/05 06/04 0525 0005 2009 Chemistry Sodium (137 - 145 mmol/L) 139 137 139 Potassium (3.5 - 5.1 mmol/L) 3.5 3.0 L 2.8 *L Chloride (98 - 107 mmol/L) 109 H 106 107 Carbon Dioxide (22 - 30 mmol/L) 22 22 23 Anion Gap (5 - 16) 7 8 9 BUN (9 - 20 mg/dL) 58 H 58 H 57 H Creatinine (0.7 - 1.2 mg/dL) 6.3 *H 6.1 *H 6.1 *H Estimated GFR (>60 ml/min) 9 L 9 L 9 L Glucose (65 - 99 mg/dL) 76 70 65 Calcium (8.4 - 10.2 mg/dL) 5.4 *L 5.4 *L 5.0 *L Phosphorus (2.5 - 4.5 mg/dL) 6.1 H 7.0 H 7.3 H Magnesium (1.6 - 2.3 mg/dL) 2.3 2.4 H 2.4 H Total Bilirubin (0.2 - 1.3 mg/dL) 0.2 0.3 0.2 AST (17 - 59 U/L) 24 27 25 ALT (21 - 72 U/L) 20 L 23 23 Albumin (3.5 - 5.0 g/dL) 2.3 L 2.2 L 2.2 L 25-OH Vitamin D Total (30 - 100 ng/ml) 8.0 L Hematology CBC w Diff NO MAN DIFF REQ WBC (4.8 - 10.8 /CUMM) 3.0 L RBC (4.70 - 6.10 /CUMM) 2.51 L Hgb (14.0 - 18.0 G/DL) 7.9 L Hct (42 - 52 %) 23.2 L MCV (80.0 - 94.0 FL) 92.6 MCH (27.0 - 31.0 PG) 31.4 H MCHC (33.0 - 37.0 G/DL) 33.9 RDW (11.5 - 14.5 %) 15.7 H Plt Count (130 - 400 /CUMM) 89 L MPV (7.4 - 10.4 FL) 6.9 L Gran % (42.2 - 75.2 %) 42.9 Lymphocytes % (20.5 - 51.1 %) 47.7 Monocytes % (1.7 - 9.3 %) 6.7 Eosinophils % (0 - 5 %) 2.1 Basophils % (0.0 - 2.0 %) 0.6 Absolute Granulocytes (1.4 - 6.5 /CUMM) 1.3 L Absolute Lymphocytes (1.2 - 3.4 /CUMM) 1.4 Absolute Monocytes (0.10 - 0.60 /CUMM) 0.2 Absolute Eosinophils (0.0 - 0.7 /CUMM) 0.1 Absolute Basophils (0.0 - 0.2 /CUMM) 0 Exam General Appearance: alert, awake, comfortable Respiratory: crackles Cardiovascular: regular rate/rhythm Gastrointestinal: normal bowel sounds, soft Extremities: no edema Current Medications: Current Medications Sig/Puma Start time Last Medication Dose Route Stop Time Status Admin Abacavir Sulfate 300 MG DAILY 06/03 0900 AC 06/05 PO 0747 Acetaminophen 650 MG Q6P PRN 06/025 AC 06/04 PO 09 Albumin Human 12.5 GM Q8 06/05 1400 AC IV 06/07 0601 Alprazolam 0.5 MG Q6 06/03 1800 AC 06/05 PO 06/10 175 0537 Calcium Acetate 667 MG WM 06/05 1200 AC PO Calcium Gluconate 1 GM ONCE ONE 06/05 0115 DC 06/05 Sodium Chloride 100 ML IV 06/05 0214 0130 Calcium Gluconate 1 GM ONCE ONE 06/040 DC 06/04 Sodium Chloride 100 ML IV 06/04 Calcium Gluconate 0 .STK-MED ONE 06/04 2125 DC IV Docusate Sodium 100 MG DAILY 06/03 900 AC 06/05 PO 0745 Dolutegravir Sodium 50 MG DAILY 06/03 900 AC 06/05 PO 0747 Folic Acid 1 MG DAILY 06/03 900 AC 06/05 PO 0746 Heparin Sodium 5,000 UNIT Q8 06/03 600 AC 06/05 (Porcine) SC 0537 Lactated Ringer's 1,000 ML Q8H 06/04 2330 AC 06/04 IV 2343 Lactulose 20 GM DAILY 06/03 900 AC 06/05 PO 0746 Levetiracetam 500 MG BID 06/03 2100 DC 06/04 PO 0906 Morphine Sulfate 2 MG Q4P PRN 06/02 2345 AC 06/05 IV 0754 Multivitamins 1 TAB DAILY 06/03 900 AC 06/05 Therapeutic PO 0747 Oxycodone HCl 20 MG Q12 06/05 0915 AC PO Oxycodone/ 2 TAB Q4 HRS NEEDED PRN 06/04 1630 AC 06/04 Acetaminophen PO 2213 Oxycodone/ 1 TAB Q6P PRN 06/02 2345 DC 06/04 Acetaminophen PO 0540 Polyethylene Glycol 17 GM DAILY 06/03 900 AC 06/05 PO 0746 Potassium Chloride 40 MEQ Q3 06/05 0115 DC 06/05 PO 06/05 0116 0127 Potassium Chloride 60 MEQ ONCE ONE 06/04 2130 DC 06/04 PO 06/04 2131 2126 Potassium Chloride 0 .STK-MED ONE 06/04 2125 DC PO Senna 187 MG DAILY 06/03 900 AC 06/05 PO 0747 Sevelamer HCl 1,600 MG WM 06/03 1200 AC 06/05 PO 0745 Sodium Bicarbonate 75 MEQ Q8H 06/04 1500 DC Sodium Chloride 1,000 ML IV Sodium Bicarbonate 75 MEQ CONTINOUS INFUSION 06/04 1000 DC Sodium Chloride 1,000 ML IV Sodium Chloride 1,000 ML Q8H 06/04 2330 CAN IV Thiamine HCl 100 MG DAILY 06/03 900 AC 06/05 PO 0748 Trazodone HCl 200 MG QPM PRN 06/02 2345 AC PO Vitamin A/Vitamin D 1 DEDRICK BID 06/03 2100 AC 06/05 TOP 0746 Impression/Plan Impression/Problem List Impression: 58-year-old man with AIDS, maintained on antiretroviral therapy, hepatitis C successfully treated with Whit, left BKA for MRSA osteomyelitis, chronic ulcers on the right foot, status post back surgery with a neurogenic bladder with self catheterization, complicated by recurrent urinary tract infections, status post resection of either a urethral stricture or flap, and chronic kidney disease (hiv/HCV), initially admitted for right pubic ramus fracture, was noted to have some involuntary movements when he went for his ultrasound of the kidneys. Rapid response was called and patient was transferred to the ICU. Was found to be in severe metabolic acidosis in the setting of acute on chronic kidney injury. Problem list: lenny on CKD HIV history Hepatitis C Hypocomplementemia Chronic anemia Hypocalcemia Hypophosphatemia Plan: Respiratory Stable on 2 L nasal cannula Infection: Afebrile overnight, will follow off antibiotics for now Continue antiretroviral therapy his last viral load undetectable and his CD4 count approximately 500 April 2018. HIV viral load pending. Cardiology Blood pressure stable in 100s systolic Metabolic Unclear if moderate right hydronephrosis is chronic or something acute as has been documented that in July 2017 patient did have a right moderate hydronephrosis. Called radiology for further clarification. Continue Mcgregor catheter Metabolic acidosis improved hypocalcemia (corrected 6.6) likely secondary to hyperphosphatemia, will start calcium carbonate 1300 mg p.o. 3 times daily in between meals Nephrology on board, appreciate recommendations Hematology H&H stable 7.9/23.2 today we will continue to monitor, per nephro will start procrit Low complement levels C3 =66/ C4 =9, follow up HCV RNA Alimentry renal dialysis diet Neurology EEG is again for contoured activity which could represent muscle artifact or myoclonic activity. Appreciate neurology recommendations. Will discontinue Keppra as there is no epileptogenic features identified on EEG. DVT prophylaxis Subcu heparin Full code Problem List: 1. Right groin pain 2. [id number] kidney injury Pain Ratin Tomorrow's Labs & Rationales: icu Plan DVT/Prophylaxis: pharmacological Dexter Velasquez MD 06/05/18 1231: Attending MD Review Statement Attending Sign Off Attending Cosign Statement: I have: examined this patient, reviewed al EMR data, personally reviewd images, discussd w/resident/PA/ZOO DIRECTOR, discussed mgmt plan w/fidel, discussed mgmt plan w/CM, discussed mgmt plan w/pt, agreed w/resident/PA/ZOO DIRECTOR, amended to note. Other Findings: Impression 58 year old man * RESOLVED - twitching/seizure like activity resulting in rapid response and transfer to the ICU - likely due to calcium vs. meds * R mid/lower lung field opacification IMPROVED - sputum with Klebsiella pneumoniae, Serratia Marcescens, MSSA - s/p antibiotics * acute on chronic renal failure * hx of HIV * hx of recurrent UTI's * s/p fall - rami fractures * hx of left BKA Plan Respiratory -cxr with improving opacities ID -follow off antibiotics -f/u all cultures CVS -monitor hemodynamics Heme -coags, cbc -hbg goal >7 Metabolic -ins/outs -nephrology consultation appreciated -will continue to discuss option and timing of HD Alimentary -diet Neuro -no epileptiform activity on EEG -f/u neurology consultation DVT prophylaxis at all times Attending time spent 30 minutes Downgrade to telemetry - previously had a brief episode of SVT
[2018-06-05 09:00] VITALS: BP 100/62
--- NOTE | 2018-06-05 12:43 | PN- Nephrology ---
Assessment/Plan Nephrology Assessment: 1. 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 ABDIRASHID -slowly improving with IV fluids and Mcgregor drainage 3. Hypotension -in part related to pain medications but suspect also an element of volume contraction 4. Neuromuscular irritability -much improved; may have been related to narcotic medications although uremia may have also been playing a role 5. Metabolic acidosis -improved on IV isotonic sodium bicarbonate 6. Hyperphosphatemia -improved 7. Profound hypocalcemia (corrected calcium approximately 6.6) -asymptomatic at this time 8. Pancytopenia including severe anemia 9. Pelvic fractures as noted Suggestion: 1. Continue current IV fluids 2. Add calcium carbonate 1300 mg p.o. 3 times daily in between meals 3. Check vitamin D and PTH levels 4. Once serum phosphorus falls below 6, will add calcitriol or a vitamin D analog to his regimen 5. Anemia workup including iron studies, folate and B12 levels 6. Procrit 20,000 units subcu weekly Subjective Subjective: Patient continues to feel somewhat better although he still requires a significant amount of analgesia for his pelvic pain. Creatinine slowly improving but still far from baseline. Phosphorus also improving but serum calcium remains quite low even when corrected for hypoalbuminemia. Finally, he is pancytopenic which I suspect may be related to his HIV and/or therapy. Objective Vital Signs and I&Os Vital Signs Date Time Temp Pulse Resp B/P B/P Pulse O2 O2 Flow FiO2 Mean Ox Delivery Rate 06/05 09 97.3 62 20 100/62 96 Room Air 06/05 0000 Room Air 06/05 0000 97.1 56 12 104/60 96 Room Air 06/04 2000 100 Nasal 3.0L Cannula 06/04 1600 100 Nasal 3.0L Cannula 06/04 1600 96.7 57 20 90/60 100 Nasal 3.0L Cannula Intake & Output 06/05 1600 06/05 0400 06/04 1600 06/04 0400 06/03 0400 Intake Total 1365 2065 2850 470 725 240 Output Total 1300 400 718 769 6286 200 Balance 65 1665 1895 70 -625 40 Intake, IV 885 1345 2050 350 725 Intake, Oral 480 720 800 120 0 240 Number 1 1 1 0 Bowel Movements Output, Urine 1300 400 723 275 5122 200 Patient 187 lb 187 lb 220 lb Weight Weight Bed scale Measurement Method Physical Exam: General: Well-developed chronically ill-appearing white male in NAD Skin: No jaundice, multiple ecchymoses HEENT: Conjunctivae pale, sclerae anicteric, left corneal haziness, mucous membranes dry Neck: Without masses or thyromegaly, no supraclavicular or cervical adenopathy, +JVD Chest: Clear anterolaterally Heart: Regular rate and rhythm without S3 or rub Abdomen: Soft and nontender without palpable masses or organomegaly Extremities: Left BKA, no significant edema Neuro: Awake and alert, no focal findings, no asterixis or myoclonus today, negative Chvostek sign Results Pertinent Lab Results: Laboratory Tests 06/05 06/05 06/04 0525 0005 2009 Chemistry Sodium (137 - 145 mmol/L) 139 137 139 Potassium (3.5 - 5.1 mmol/L) 3.5 3.0 L 2.8 *L Chloride (98 - 107 mmol/L) 109 H 106 107 Carbon Dioxide (22 - 30 mmol/L) 22 22 23 Anion Gap (5 - 16) 7 8 9 BUN (9 - 20 mg/dL) 58 H 58 H 57 H Creatinine (0.7 - 1.2 mg/dL) 6.3 *H 6.1 *H 6.1 *H Estimated GFR (>60 ml/min) 9 L 9 L 9 L Glucose (65 - 99 mg/dL) 76 70 65 Calcium (8.4 - 10.2 mg/dL) 5.4 *L 5.4 *L 5.0 *L Phosphorus (2.5 - 4.5 mg/dL) 6.1 H 7.0 H 7.3 H Magnesium (1.6 - 2.3 mg/dL) 2.3 2.4 H 2.4 H Total Bilirubin (0.2 - 1.3 mg/dL) 0.2 0.3 0.2 AST (17 - 59 U/L) 24 27 25 ALT (21 - 72 U/L) 20 L 23 23 Albumin (3.5 - 5.0 g/dL) 2.3 L 2.2 L 2.2 L 25-OH Vitamin D Total (30 - 100 ng/ml) 8.0 L Hematology CBC w Diff NO MAN DIFF REQ WBC (4.8 - 10.8 /CUMM) 3.0 L RBC (4.70 - 6.10 /CUMM) 2.51 L Hgb (14.0 - 18.0 G/DL) 7.9 L Hct (42 - 52 %) 23.2 L MCV (80.0 - 94.0 FL) 92.6 MCH (27.0 - 31.0 PG) 31.4 H MCHC (33.0 - 37.0 G/DL) 33.9 RDW (11.5 - 14.5 %) 15.7 H Plt Count (130 - 400 /CUMM) 89 L MPV (7.4 - 10.4 FL) 6.9 L Gran % (42.2 - 75.2 %) 42.9 Lymphocytes % (20.5 - 51.1 %) 47.7 Monocytes % (1.7 - 9.3 %) 6.7 Eosinophils % (0 - 5 %) 2.1 Basophils % (0.0 - 2.0 %) 0.6 Absolute Granulocytes (1.4 - 6.5 /CUMM) 1.3 L Absolute Lymphocytes (1.2 - 3.4 /CUMM) 1.4 Absolute Monocytes (0.10 - 0.60 /CUMM) 0.2 Absolute Eosinophils (0.0 - 0.7 /CUMM) 0.1 Absolute Basophils (0.0 - 0.2 /CUMM) 0 06/04 06/04 06/04 UNK 0930 0500 Chemistry PTH Intact (18.4 - 80.1 pg/ML) 422.7 H Urines Ur Random Creatinine (mg/dL) 43.3 Urine Total Volume (600 - 1500 ML/24HR) Cancelled 1600 H Urine Creatinine (1.0 - 2.0 g/24HR) 0.7 L Ur Sodium 24 Hour (30 - 90 mmol/L) Cancelled 72 Ur Potassium 24 Hour (25 - 125 mmol/24H) Cancelled 35.6 06/04 06/03 0345 2130 Blood Gas pH (7.35 - 7.45 PH) 7.24 *L pCO2 (35 - 45 TORR) 39 pO2 (80 - 100 TORR) 101 H HCO3 (21 - 28 MEQ/L) 17 L ABG O2 Sat (Measured) (>96.0 %) 96.0 P-50 (Temp Corrected) N Carboxyhemoglobin (1.5 - 5.0 %) 0.3 L O2 Concentration % 3L Temperature (97.0 - 100.0 FARH) 97.0 O2 Delivery Method NC Chemistry Sodium (137 - 145 mmol/L) 141 Potassium (3.5 - 5.1 mmol/L) 3.6 Chloride (98 - 107 mmol/L) 111 H Carbon Dioxide (22 - 30 mmol/L) 20 L Anion Gap (5 - 16) 9 BUN (9 - 20 mg/dL) 68 H Creatinine (0.7 - 1.2 mg/dL) 7.2 *H Estimated GFR (>60 ml/min) 8 L Glucose (65 - 99 mg/dL) 101 H Calcium (8.4 - 10.2 mg/dL) 6.4 L Phosphorus (2.5 - 4.5 mg/dL) 9.2 H Magnesium (1.6 - 2.3 mg/dL) 2.9 H Total Bilirubin (0.2 - 1.3 mg/dL) 0.3 AST (17 - 59 U/L) 25 ALT (21 - 72 U/L) 24 Albumin (3.5 - 5.0 g/dL) 2.4 L Coagulation PT (9.4 - 12.5 SEC) 12.6 H INR (0.90 - 1.17) 1.15 Hematology CBC w Diff NO MAN DIFF REQ WBC (4.8 - 10.8 /CUMM) 3.3 L RBC (4.70 - 6.10 /CUMM) 2.34 L Hgb (14.0 - 18.0 G/DL) 7.6 L Hct (42 - 52 %) 21.9 L MCV (80.0 - 94.0 FL) 93.6 MCH (27.0 - 31.0 PG) 32.4 H MCHC (33.0 - 37.0 G/DL) 34.7 RDW (11.5 - 14.5 %) 15.7 H Plt Count (130 - 400 /CUMM) 102 L MPV (7.4 - 10.4 FL) 7.3 L Gran % (42.2 - 75.2 %) 34.2 L Lymphocytes % (20.5 - 51.1 %) 56.2 H Monocytes % (1.7 - 9.3 %) 6.8 Eosinophils % (0 - 5 %) 2.2 Basophils % (0.0 - 2.0 %) 0.6 Absolute Granulocytes (1.4 - 6.5 /CUMM) 1.1 L Absolute Lymphocytes (1.2 - 3.4 /CUMM) 1.9 Absolute Monocytes (0.10 - 0.60 /CUMM) 0.2 Absolute Eosinophils (0.0 - 0.7 /CUMM) 0.1 Absolute Basophils (0.0 - 0.2 /CUMM) 0 Miscellaneous Phlebotomy Draw Site RIGHT RADIAL 06/03 164 Chemistry Sodium (137 - 145 mmol/L) 142 Potassium (3.5 - 5.1 mmol/L) 3.9 Chloride (98 - 107 mmol/L) 114 H Carbon Dioxide (22 - 30 mmol/L) 16 L Anion Gap (5 - 16) 11 BUN (9 - 20 mg/dL) 66 H Creatinine (0.7 - 1.2 mg/dL) 7.7 *H Estimated GFR (>60 ml/min) 7 L Glucose (65 - 99 mg/dL) 104 H Calcium (8.4 - 10.2 mg/dL) 6.7 L Phosphorus (2.5 - 4.5 mg/dL) 9.5 H Magnesium (1.6 - 2.3 mg/dL) 3.0 H Total Bilirubin (0.2 - 1.3 mg/dL) 0.3 AST (17 - 59 U/L) 27 ALT (21 - 72 U/L) 21 Troponin I (<0.11 ng/ml) < 0.01 Albumin (3.5 - 5.0 g/dL) 2.6 L Vitamin C Pending Hematology CBC w Diff NO MAN DIFF REQ WBC (4.8 - 10.8 /CUMM) 3.2 L RBC (4.70 - 6.10 /CUMM) 2.57 L Hgb (14.0 - 18.0 G/DL) 8.2 L Hct (42 - 52 %) 23.7 L MCV (80.0 - 94.0 FL) 92.5 MCH (27.0 - 31.0 PG) 31.9 H MCHC (33.0 - 37.0 G/DL) 34.5 RDW (11.5 - 14.5 %) 15.9 H Plt Count (130 - 400 /CUMM) 119 L MPV (7.4 - 10.4 FL) 7.0 L Gran % (42.2 - 75.2 %) 59.5 Lymphocytes % (20.5 - 51.1 %) 33.0 Monocytes % (1.7 - 9.3 %) 5.9 Eosinophils % (0 - 5 %) 1.1 Basophils % (0.0 - 2.0 %) 0.5 Absolute Granulocytes (1.4 - 6.5 /CUMM) 1.9 Absolute Lymphocytes (1.2 - 3.4 /CUMM) 1.0 L Total Abs Lymphocytes Pending Absolute Monocytes (0.10 - 0.60 /CUMM) 0.2 Absolute Eosinophils (0.0 - 0.7 /CUMM) 0 Absolute Basophils (0.0 - 0.2 /CUMM) 0 Immunology Lymphocyte Subset Cmmnt Pending Absolute CD3 Count Pending % CD3 Mature T-Lymphs Pending % CD4 [place] Pending Absolute CD4 Count Pending T-Help/Suppress Ratio Pending % CD8 Suppressor Pending Absolute CD8 Count Pending Serology HIV 1&2 RNA (PCR) Pending Urines Urine Color Cancelled Urine Clarity Cancelled Urine pH Cancelled Ur Specific [place] Cancelled Urine Protein Cancelled Urine Ketones Cancelled Urine Nitrite Cancelled Urine Bilirubin Cancelled Urine Urobilinogen Cancelled Ur Leukocyte Esterase Cancelled Ur Microscopic Cancelled Urine Hemoglobin Cancelled Urine Glucose Cancelled 06/03 06/03 06/03 06/03 1534 1533 1530 1529 Blood Gas pH (7.35 - 7.45 PH) 7.11 *L pCO2 (35 - 45 TORR) 36 pO2 (80 - 100 TORR) 164 H HCO3 (21 - 28 MEQ/L) 11 L ABG O2 Sat (Measured) (>96.0 %) 97.0 Carboxyhemoglobin (1.5 - 5.0 %) 0.6 L O2 Concentration % 60% O2 Delivery Method PRB Chemistry Sodium Cancelled Potassium Cancelled Chloride Cancelled Carbon Dioxide Cancelled Anion Gap Cancelled BUN Cancelled Creatinine Cancelled BUN/Creatinine Ratio Cancelled Troponin I Cancelled Cancelled Prolactin Cancelled Hematology CBC w Diff Cancelled WBC Cancelled RBC Cancelled Hgb Cancelled Hct Cancelled MCV Cancelled MCH Cancelled MCHC Cancelled RDW Cancelled Plt Count Cancelled MPV Cancelled Miscellaneous Phlebotomy Draw Site RIGHT RADIAL 06/03 06/03 06/03 1403 0701 0645 Chemistry Sodium (137 - 145 mmol/L) 139 140 Potassium (3.5 - 5.1 mmol/L) 3.9 4.1 Chloride (98 - 107 mmol/L) 113 H 115 H Carbon Dioxide (22 - 30 mmol/L) 15 L 14 L Anion Gap (5 - 16) 11 11 BUN (9 - 20 mg/dL) 66 H 65 H Creatinine (0.7 - 1.2 mg/dL) 7.6 *H 7.9 *H Estimated GFR (>60 ml/min) 7 L 7 L BUN/Creatinine Ratio (7 - 25 %) 8.7 8.2 Serum Osmolality (285 - 295 MOSM/KG) 316 H Calcium (8.4 - 10.2 mg/dL) 6.8 L Phosphorus (2.5 - 4.5 mg/dL) 9.0 H Magnesium (1.6 - 2.3 mg/dL) 2.9 H Creatine Kinase (55 - 170 U/L) 118 Ltd-X-Gqltfgcjjps Pept (<125 pg/mL) 7470 H Albumin (3.5 - 5.0 g/dL) 2.7 L Prolactin (3.7 - 17.9 ng/mL) 35.6 H Hematology CBC w Diff NO MAN DIFF REQ WBC (4.8 - 10.8 /CUMM) 4.4 L RBC (4.70 - 6.10 /CUMM) 2.56 L Hgb (14.0 - 18.0 G/DL) 8.9 L Hct (42 - 52 %) 24.3 L MCV (80.0 - 94.0 FL) 95.0 H MCH (27.0 - 31.0 PG) 34.6 H MCHC (33.0 - 37.0 G/DL) 36.5 RDW (11.5 - 14.5 %) 15.2 H Plt Count (130 - 400 /CUMM) 122 L MPV (7.4 - 10.4 FL) 7.4 Gran % (42.2 - 75.2 %) 55.4 Lymphocytes % (20.5 - 51.1 %) 35.7 Monocytes % (1.7 - 9.3 %) 6.2 Eosinophils % (0 - 5 %) 2.0 Basophils % (0.0 - 2.0 %) 0.7 Absolute Granulocytes (1.4 - 6.5 /CUMM) 2.4 Absolute Lymphocytes (1.2 - 3.4 /CUMM) 1.6 Absolute Monocytes (0.10 - 0.60 /CUMM) 0.3 Absolute Eosinophils (0.0 - 0.7 /CUMM) 0.1 Absolute Basophils (0.0 - 0.2 /CUMM) 0 Toxicology Urine Opiates Screen (>2000 NG/ML) 1519.00 Methadone Screen (>300 NG/ML) < 40 Barbiturate Screen (>200 NG/ML) < 60 Ur Phencyclidine Scrn (>25 NG/ML) < 6.00 Amphetamines Screen (>1000 NG/ML) < 100 U Benzodiazepines Scrn (>200 NG/ML) 584 H Urine Cocaine Screen (>300 NG/ML) < 50 Urine Cannabis Screen (>50 NG/ML) < 5.00 Urines Ur Random Creatinine (mg/dL) 41.2 Ur Random Sodium (30 - 90 mmol/L) 73 Ur Random Potassium (mmol/L) 25.6 Fraction Sodium Excret (<1% %) 9.9 H 06/03 06/02 0340 2153 Chemistry Prot Electrophoresis (()) SEE NOTE Total Protein (PEP) (6.1 - 8.1 g/dL) 7.7 Albumin % (PEP) (3.8 - 4.8 g/dL) 2.7 L Uojnj-9-Qesdkjotx (0.2 - 0.3 g/dL) 0.5 H Xwztd-4-Wykoynflm (0.5 - 0.9 g/dL) 0.7 Qaey-1-Shfxkzkf (0.4 - 0.6 g/dL) 0.3 L Shpj-7-Oinqidfp (0.2 - 0.5 g/dL) 0.4 Gamma Globulins (0.8 - 1.7 g/dL) 3.1 H Immunology Complement C3 (82 - 185 mg/dL) 66 L Complement C4 (15 - 53 mg/dL) 9 L Urines Urine Color (YEL,AMB,STR) YEL Urine Clarity (CLEAR) TURBD H Urine pH (5.0 - 8.0) 6.0 Ur Specific [place] (1.001 - 1.035) 1.025 Urine Protein (NEG,<30 MG/DL) 100 H Urine Ketones (NEG) TRACE H Urine Nitrite (NEG) POS H Urine Bilirubin (NEG) NEG Urine Urobilinogen (0.1 - 1.0 EU/dl) 0.2 Ur Leukocyte Esterase (NEG) LARGE H Ur Microscopic SEDIMENT EXAMINED Urine RBC (0 - 5 /HPF) 15-25 H Urine WBC (0 - 2 /HPF) PACKD H Ur Epithelial Cells (NONE,FEW) FEW Urine Bacteria (NEG/NONE) PACKD H Urine Mucus (FEW,NONE) FEW Urine Hemoglobin (NEG) LARGE H Urine Glucose (N MG/DL) 250 H / 1858 Chemistry Sodium (137 - 145 mmol/L) 139 Potassium (3.5 - 5.1 mmol/L) 4.9 Chloride (98 - 107 mmol/L) 115 H Carbon Dioxide (22 - 30 mmol/L) 11 L Anion Gap (5 - 16) 13 BUN (9 - 20 mg/dL) 68 H Creatinine (0.7 - 1.2 mg/dL) 7.8 *H Estimated GFR (>60 ml/min) 7 L BUN/Creatinine Ratio (7 - 25 %) 8.7 Glucose (65 - 99 mg/dL) 103 H Calcium (8.4 - 10.2 mg/dL) 7.0 L Phosphorus (2.5 - 4.5 mg/dL) 9.1 H Total Bilirubin (0.2 - 1.3 mg/dL) 0.5 AST (17 - 59 U/L) 29 ALT (21 - 72 U/L) 19 L Alkaline Phosphatase (< 127 U/L) 126 Total Protein (6.3 - 8.2 g/dL) 7.7 Albumin (3.5 - 5.0 g/dL) 3.0 L Globulin (1.9 - 4.2 gm/dL) 4.7 H Albumin/Globulin Ratio (1.1 - 2.2 %) 0.6 L Hematology CBC w Diff NO MAN DIFF REQ WBC (4.8 - 10.8 /CUMM) 4.8 RBC (4.70 - 6.10 /CUMM) 2.76 L Hgb (14.0 - 18.0 G/DL) 9.5 L Hct (42 - 52 %) 26.6 L MCV (80.0 - 94.0 FL) 96.4 H MCH (27.0 - 31.0 PG) 34.4 H MCHC (33.0 - 37.0 G/DL) 35.7 RDW (11.5 - 14.5 %) 15.6 H Plt Count (130 - 400 /CUMM) 125 L MPV (7.4 - 10.4 FL) 7.8 Gran % (42.2 - 75.2 %) 57.5 Lymphocytes % (20.5 - 51.1 %) 35.2 Monocytes % (1.7 - 9.3 %) 5.6 Eosinophils % (0 - 5 %) 1.0 Basophils % (0.0 - 2.0 %) 0.7 Absolute Granulocytes (1.4 - 6.5 /CUMM) 2.7 Absolute Lymphocytes (1.2 - 3.4 /CUMM) 1.7 Absolute Monocytes (0.10 - 0.60 /CUMM) 0.3 Absolute Eosinophils (0.0 - 0.7 /CUMM) 0 Absolute Basophils (0.0 - 0.2 /CUMM) 0
[2018-06-05 16:00] VITALS: BP 106/68
[2018-06-06] VITALS: BP 109/70
[2018-06-06 05:06] LABS: ABSOLUTE BASOPHIL COUNT 0 /CUMM (0.0-0.2); ABSOLUTE EOSINOPHIL COUNT 0.1 /CUMM (0.0-0.7); ABSOLUTE GRANULOCYTE CT 1.7 /CUMM (1.4-6.5); ABSOLUTE LYMPH COUNT 2.2 /CUMM (1.2-3.4); ABSOLUTE MONOCYTE COUNT 0.3 /CUMM (0.10-0.60); BASOPHIL % 0.4 % (0.0-2.0); EOSINOPHIL % 1.6 % (0-5); GRANULOCYTE % 40.3 % (42.2-75.2); HEMATOCRIT 23.8 % (42-52); MEAN CORPUSCULAR HGB CONC 33.6 G/DL (33.0-37.0); MEAN CORPUSCULAR VOLUME 92.3 FL (80.0-94.0); MEAN PLATELET VOLUME 6.7 FL (7.4-10.4); PLATELET COUNT 91 /CUMM (130-400); RBC DISTRIBUTION WIDTH 16.1 % (11.5-14.5); RED BLOOD CELL CT 2.58 /CUMM (4.70-6.10); WHITE BLOOD CELL COUNT 4.2 /CUMM (4.8-10.8)
[2018-06-06 08:00] VITALS: BP 102/64
--- NOTE | 2018-06-06 08:25 | PN- Resident CRCU ---
See Addendum Subjective HPI/CRCU Issues: severe Metabolic acidosis-resolved Acute on chronic kidney injury 24 Hour Events: 5 beat run of Vtach last night. No hemodynamic instability. Patient seen and examined at bedside. Pt denies complaints. Denies fevers/chills/night sweats/ chest pain/abdominal pain/urinary symptoms. States that he did see an outpatient urologist about a year and a half ago, but did not follow-up. Does not remember the name, but does say that it was in [place]. Objective Vital Signs & I&O Last 8 Hrs of Vitals and I&O: Vitally stable Exam General Appearance: alert, awake, comfortable Head: atraumatic Ears, Nose, Throat: normal pharynx Respiratory: normal breath sounds, lungs clear Cardiovascular: regular rate/rhythm Gastrointestinal: soft, non-tender Extremities: no edema, L BKA; R foot multiple chronic wounds without purulence or tenderness, mild asterixis Skin: intact Current Medications: Current Medications Sig/Puma Start time Last Medication Dose Route Stop Time Status Admin Abacavir Sulfate 300 MG DAILY 06/03 900 AC 06/06 PO 0819 Acetaminophen 650 MG Q6P PRN 06/02 2145 AC 06/04 PO 0914 Albumin Human 12.5 GM Q8 06/05 1400 AC 06/06 IV 06/07 0601 0507 Alprazolam 0.5 MG TID 06/06 1400 AC PO 06/13 1359 Alprazolam 0.5 MG Q6 06/03 1800 DC 06/06 PO 06/10 1759 0507 Calcitriol 0.25 MCG DAILY 06/06 1058 AC PO Calcium Acetate 667 MG WM 06/05 1200 DC 06/05 PO 1141 Calcium Carbonate 1,250 MG TID 06/05 1400 AC 06/06 PO 0818 Docusate Sodium 100 MG DAILY 06/03 09 AC 06/05 PO 0745 Dolutegravir Sodium 50 MG DAILY 06/03 09 AC 06/06 PO 0819 Epoetin Gianni 20,000 U Q168 06/05 1400 AC 06/05 NE 1423 Ergocalciferol 50,000 IU ONCE A WEEK 06/06 1000 AC PO Folic Acid 1 MG DAILY 06/03 09 AC 06/06 PO 0818 Heparin Sodium 5,000 UNIT Q8 06/03 0600 AC 06/06 (Porcine) SC 0509 Lactated Ringer's 1,000 ML Q10H 06/06 0945 AC IV Lactated Ringer's 1,000 ML Q8H 06/04 2330 DC 06/06 IV 0820 Lactulose 20 GM DAILY 06/03 900 AC 06/06 PO 0819 Morphine Sulfate 2 MG Q4P PRN 06/02 2345 DC 06/05 IV 0754 Multivitamins 1 TAB DAILY 06/03 900 AC 06/06 Therapeutic PO 0819 Oxycodone HCl 20 MG Q12 06/05 0915 AC 06/06 PO 0820 Oxycodone/ 2 TAB Q4 HRS NEEDED PRN 06/04 1630 AC 06/06 Acetaminophen PO 0507 Polyethylene Glycol 17 GM DAILY 06/03 900 AC 06/05 PO 0746 Senna 187 MG DAILY 06/03 900 AC 06/05 PO 0747 Sevelamer HCl 1,600 MG WM 06/03 1200 AC 06/06 PO 0819 Thiamine HCl 100 MG DAILY 06/03 900 AC 06/06 PO 0819 Trazodone HCl 200 MG QPM PRN 06/02 2345 AC PO Vitamin A/Vitamin D 1 DEDRICK BID 06/03 2100 AC 06/06 TOP 0818 Impression/Plan Impression/Problem List Impression: 58-year-old man with AIDS, maintained on antiretroviral therapy, hepatitis C successfully treated with Whit, left BKA for MRSA osteomyelitis, chronic ulcers on the right foot, status post back surgery with a neurogenic bladder with self catheterization, complicated by recurrent urinary tract infections, status post resection of either a urethral stricture or flap, and chronic kidney disease (hiv/HCV), initially admitted for right pubic ramus fracture, was noted to have some involuntary movements when he went for his ultrasound of the kidneys. Rapid response was called and patient was transferred to the ICU. Was found to be in severe metabolic acidosis in the setting of acute on chronic kidney injury. Problem list: lenny on CKD HIV history Hepatitis C Hypocomplementemia Chronic anemia Hypocalcemia Hypophosphatemia Plan: Respiratory Stable on Room air Infection: Afebrile overnight, will follow off antibiotics for now Continue antiretroviral therapy his last viral load undetectable and his CD4 count approximately 500 April 2018. HIV viral load pending. Cardiology Blood pressure stable in 100s systolic Metabolic Metabolic acidosis improved hypocalcemia (corrected 7.7) likely secondary to hyperphosphatemia, on calcium carbonate 1300 mg p.o. 3 times daily in between meals with appropriate rise in calcium. Will continue. Will add ergochalciferol and calcitriol 0.25mcg/day Nephrology on board, appreciate recommendations Hematology H&H stable 8.0/23.8 today we will continue to monitor, per nephro will start procrit Low complement levels C3 =66/ C4 =9, follow up HCV RNA, CD4 counts pending Platelet levels chronically low; 91 today Alimentry renal dialysis diet Neurology EEG is again for contoured activity which could represent muscle artifact or myoclonic activity. Appreciate neurology recommendations. Will discontinue Keppra as there is no epileptogenic features identified on EEG. Nephrology Unclear if moderate right hydronephrosis is chronic or something acute as has been documented that in July 2017 patient did have a right moderate hydronephrosis. Called radiology for further clarification. On Albumin 12.5gm q8 for six total doses Continue Mcgregor catheter On LR 100cc/hr, if pressures are stable and has good PO intake this weekend can consider D/cing Urology consult placed, appreciate recs DVT prophylaxis Subcu heparin Full code Problem List: 1. [id number] kidney injury 2. Right groin pain Pain Ratin Tomorrow's Labs & Rationales: icu Plan DVT/Prophylaxis: pharmacological
--- NOTE | 2018-06-06 11:05 | PN- Nephrology ---
Assessment/Plan Nephrology Assessment: ABDIRAHSID: Creatinine remains higher than baseline; given relative hypotension agree with continuing IV fluids at 100 mL per hour. Once blood pressure has normalized and at that point IV fluids can be stopped as she is taking good by mouth intake. There is no urgent dialytic need however, if renal function fails to improve further and if the mild asterixis persists that he may need to start dialysis next week. CKD 5: His baseline creatinines in the fours consistent with CKD stage 5. No urgent dialytic need as above however clearly with impending end stage ESRD in the near future, even possibly during this admission if renal failure does not improve further and if the mild asterixis persists. I did discuss this with him in detail today; as he is wheelchair bound and lives alone at home hemodialysis seems to be a better fit that home PD. That said, he requests interest in possibly finding a long-term group home, Hypocalcemia with secondary hyperparathyroidism and hypovitaminosis D: Agree with ergocalciferol. We'll continue calcium carbonate supple meds. Would also add calcitriol 0.25 mcg per day, first dose now. Suggestion: No urgent dialytic need At calcitriol as above Continue IV fluids at 100 mL per hour with LR, until, BP has normalized D/w housestaff Subjective Subjective: No acute events He is alert and oriented without confusion BP better but remains slightly low in the 100s systolic Good urine output Creatinine stable in the 6s Review of Systems: No fever or chills No shortness breath or chest pain Objective Vital Signs and I&Os Vital Signs Date Time Temp Pulse Resp B/P B/P Pulse O2 O2 Flow FiO2 Mean Ox Delivery Rate 06/06 800 96 Room Air Room Air 06/06 0800 97.9 82 18 102/64 96 Room Air Room Air 06/06 0000 97.8 82 16 109/70 95 Room Air 06/06 0000 95 Room Air 06/05 2000 96 Room Air 06/05 1600 97.0 64 20 106/68 96 Room Air Intake & Output 06/06 0400 06/05 1600 06/05 0400 06/04 1600 06/04 0400 Intake Total 1378 1297 3165 2065 2850 470 Output Total 1700 1500 2550 400 955 400 Balance -322 -657 752 7907 1895 70 Intake, IV 4913 929 4532 1345 2050 350 Intake, Oral 528 330 5428 720 800 120 Number 2 3 2 1 1 Bowel Movements Output, Urine 1700 1500 2550 400 955 400 Patient 187 lb 187 lb Weight Weight Bed scale Measurement Method Physical Exam: General: NAD, A+O x3. HEENT: NC/AT. No icterus. Moist mucosa Neck: negative for NANDO, JVD CV: RRR, no m/r/g Pulm: CTAB, no rales Abd: soft, NT Lower Ext: + L BKA Upper Ext: no AVFs or AVGs Neuro: neg tremor, +mild asterixis : + robles catheter Current Medications: Current Medications Sig/Puma Start time Last Medication Dose Route Stop Time Status Admin Abacavir Sulfate 300 MG DAILY 06/03 900 06/06 PO 0819 Acetaminophen 650 MG Q6P PRN 06/02 2145 06/04 PO 0914 Albumin Human 12.5 GM Q8 06/05 1400 AC 06/06 IV 06/07 0601 0507 Alprazolam 0.5 MG TID 06/06 1400 PO 06/13 1359 Alprazolam 0.5 MG Q6 06/03 1800 DE 06/06 PO 06/10 1759 0507 Calcitriol 0.25 MCG DAILY 06/06 1058 AC PO Calcium Acetate 667 MG WM 06/05 1200 DC 06/05 PO 1141 Calcium Carbonate 1,250 MG TID 06/05 1400 06/06 PO 0818 Docusate Sodium 100 MG DAILY 06/03 900 AC 06/05 PO 0745 Dolutegravir Sodium 50 MG DAILY 06/03 900 AC 06/06 PO 0819 Epoetin Gianni 20,000 U Q168 06/05 1400 06/05 IA 1423 Ergocalciferol 50,000 IU ONCE A WEEK 06/06 1000 PO Folic Acid 1 MG DAILY 06/03 900 AC 06/06 PO 0818 Heparin Sodium 5,000 UNIT Q8 06/03 06 AC 06/06 (Porcine) SC 0509 Lactated Ringer's 1,000 ML Q10H 06/06 0945 AC IV Lactated Ringer's 1,000 ML Q8H 06/04 2330 DC 06/06 IV 0820 Lactulose 20 GM DAILY 06/03 900 AC 06/06 PO 0819 Morphine Sulfate 2 MG Q4P PRN 06/02 2345 DC 06/05 IV 0754 Multivitamins 1 TAB DAILY 06/03 09 AC 06/06 Therapeutic PO 0819 Oxycodone HCl 20 MG Q12 06/05 0915 AC 06/06 PO 0820 Oxycodone/ 2 TAB Q4 HRS NEEDED PRN 06/04 1630 AC 06/06 Acetaminophen PO 0507 Polyethylene Glycol 17 GM DAILY 06/03 09 AC 06/05 PO 0746 Senna 187 MG DAILY 06/03 09 AC 06/05 PO 0747 Sevelamer HCl 1,600 MG WM 06/03 1200 AC 06/06 PO 0819 Thiamine HCl 100 MG DAILY 06/03 09 AC 06/06 PO 0819 Trazodone HCl 200 MG QPM PRN 06/02 2345 AC PO Vitamin A/Vitamin D 1 DEDRICK BID 06/03 2100 AC 06/06 TOP 0818 Results Pertinent Lab Results: Laboratory Tests 06/06 06/05 06/05 0445 1300 1300 Chemistry Sodium (137 - 145 mmol/L) 139 Potassium (3.5 - 5.1 mmol/L) 3.8 Chloride (98 - 107 mmol/L) 112 H Carbon Dioxide (22 - 30 mmol/L) 21 L Anion Gap (5 - 16) 7 BUN (9 - 20 mg/dL) 54 H Creatinine (0.7 - 1.2 mg/dL) 6.3 *H Estimated GFR (>60 ml/min) 9 L Glucose (65 - 99 mg/dL) 82 Calcium (8.4 - 10.2 mg/dL) 6.5 L Phosphorus (2.5 - 4.5 mg/dL) 5.7 H Magnesium (1.6 - 2.3 mg/dL) 2.3 Total Bilirubin (0.2 - 1.3 mg/dL) 0.3 AST (17 - 59 U/L) 21 ALT (21 - 72 U/L) 21 Albumin (3.5 - 5.0 g/dL) 2.5 L Hematology CBC w Diff NO MAN DIFF REQ WBC (4.8 - 10.8 /CUMM) 4.2 L RBC (4.70 - 6.10 /CUMM) 2.58 L Hgb (14.0 - 18.0 G/DL) 8.0 L Hct (42 - 52 %) 23.8 L MCV (80.0 - 94.0 FL) 92.3 MCH (27.0 - 31.0 PG) 31.0 MCHC (33.0 - 37.0 G/DL) 33.6 RDW (11.5 - 14.5 %) 16.1 H Plt Count (130 - 400 /CUMM) 91 L MPV (7.4 - 10.4 FL) 6.7 L Gran % (42.2 - 75.2 %) 40.3 L Lymphocytes % (20.5 - 51.1 %) 51.1 Monocytes % (1.7 - 9.3 %) 6.6 Eosinophils % (0 - 5 %) 1.6 Basophils % (0.0 - 2.0 %) 0.4 Absolute Granulocytes (1.4 - 6.5 /CUMM) 1.7 Absolute Lymphocytes (1.2 - 3.4 /CUMM) 2.2 Absolute Monocytes (0.10 - 0.60 /CUMM) 0.3 Absolute Eosinophils (0.0 - 0.7 /CUMM) 0.1 Absolute Basophils (0.0 - 0.2 /CUMM) 0 Serology Hepatitis C Antibody (NONREACTIVE) REACTIVE H HCV RNA (PCR) IUs/ml Pending HCV RNA PCR log IUs/ml Pending 06/05 06/05 06/04 0525 0005 2009 Chemistry Sodium (137 - 145 mmol/L) 139 137 139 Potassium (3.5 - 5.1 mmol/L) 3.5 3.0 L 2.8 *L Chloride (98 - 107 mmol/L) 109 H 106 107 Carbon Dioxide (22 - 30 mmol/L) 22 22 23 Anion Gap (5 - 16) 7 8 9 BUN (9 - 20 mg/dL) 58 H 58 H 57 H Creatinine (0.7 - 1.2 mg/dL) 6.3 *H 6.1 *H 6.1 *H Estimated GFR (>60 ml/min) 9 L 9 L 9 L Glucose (65 - 99 mg/dL) 76 70 65 Calcium (8.4 - 10.2 mg/dL) 5.4 *L 5.4 *L 5.0 *L Phosphorus (2.5 - 4.5 mg/dL) 6.1 H 7.0 H 7.3 H Magnesium (1.6 - 2.3 mg/dL) 2.3 2.4 H 2.4 H Iron (49 - 181 ug/dL) 51 TIBC (261 - 462 ug/dL) 196 L Ferritin (17.9 - 464 ng/mL) 226.0 Total Bilirubin (0.2 - 1.3 mg/dL) 0.2 0.3 0.2 AST (17 - 59 U/L) 24 27 25 ALT (21 - 72 U/L) 20 L 23 23 Albumin (3.5 - 5.0 g/dL) 2.3 L 2.2 L 2.2 L Vitamin B12 (239 - 931 pg/mL) 763 25-OH Vitamin D Total (30 - 100 ng/ml) 8.0 L Hematology CBC w Diff NO MAN DIFF REQ WBC (4.8 - 10.8 /CUMM) 3.0 L RBC (4.70 - 6.10 /CUMM) 2.51 L Hgb (14.0 - 18.0 G/DL) 7.9 L Hct (42 - 52 %) 23.2 L MCV (80.0 - 94.0 FL) 92.6 MCH (27.0 - 31.0 PG) 31.4 H MCHC (33.0 - 37.0 G/DL) 33.9 RDW (11.5 - 14.5 %) 15.7 H Plt Count (130 - 400 /CUMM) 89 L MPV (7.4 - 10.4 FL) 6.9 L Gran % (42.2 - 75.2 %) 42.9 Lymphocytes % (20.5 - 51.1 %) 47.7 Monocytes % (1.7 - 9.3 %) 6.7 Eosinophils % (0 - 5 %) 2.1 Basophils % (0.0 - 2.0 %) 0.6 Absolute Granulocytes (1.4 - 6.5 /CUMM) 1.3 L Absolute Lymphocytes (1.2 - 3.4 /CUMM) 1.4 Absolute Monocytes (0.10 - 0.60 /CUMM) 0.2 Absolute Eosinophils (0.0 - 0.7 /CUMM) 0.1 Absolute Basophils (0.0 - 0.2 /CUMM) 0 06/04 06/04 06/04 UNK 0930 0500 Chemistry PTH Intact (18.4 - 80.1 pg/ML) 422.7 H Urines Ur Random Creatinine (mg/dL) 43.3 Urine Total Volume (600 - 1500 ML/24HR) Cancelled 1600 H Urine Creatinine (1.0 - 2.0 g/24HR) 0.7 L Ur Sodium 24 Hour (30 - 90 mmol/L) Cancelled 72 Ur Potassium 24 Hour (25 - 125 mmol/24H) Cancelled 35.6 06/04 09 0345 2130 Blood Gas pH (7.35 - 7.45 PH) 7.24 *L pCO2 (35 - 45 TORR) 39 pO2 (80 - 100 TORR) 101 H HCO3 (21 - 28 MEQ/L) 17 L ABG O2 Sat (Measured) (>96.0 %) 96.0 P-50 (Temp Corrected) N Carboxyhemoglobin (1.5 - 5.0 %) 0.3 L O2 Concentration % 3L Temperature (97.0 - 100.0 FARH) 97.0 O2 Delivery Method NC Chemistry Sodium (137 - 145 mmol/L) 141 Potassium (3.5 - 5.1 mmol/L) 3.6 Chloride (98 - 107 mmol/L) 111 H Carbon Dioxide (22 - 30 mmol/L) 20 L Anion Gap (5 - 16) 9 BUN (9 - 20 mg/dL) 68 H Creatinine (0.7 - 1.2 mg/dL) 7.2 *H Estimated GFR (>60 ml/min) 8 L Glucose (65 - 99 mg/dL) 101 H Calcium (8.4 - 10.2 mg/dL) 6.4 L Phosphorus (2.5 - 4.5 mg/dL) 9.2 H Magnesium (1.6 - 2.3 mg/dL) 2.9 H Total Bilirubin (0.2 - 1.3 mg/dL) 0.3 AST (17 - 59 U/L) 25 ALT (21 - 72 U/L) 24 Albumin (3.5 - 5.0 g/dL) 2.4 L Coagulation PT (9.4 - 12.5 SEC) 12.6 H INR (0.90 - 1.17) 1.15 Hematology CBC w Diff NO MAN DIFF REQ WBC (4.8 - 10.8 /CUMM) 3.3 L RBC (4.70 - 6.10 /CUMM) 2.34 L Hgb (14.0 - 18.0 G/DL) 7.6 L Hct (42 - 52 %) 21.9 L MCV (80.0 - 94.0 FL) 93.6 MCH (27.0 - 31.0 PG) 32.4 H MCHC (33.0 - 37.0 G/DL) 34.7 RDW (11.5 - 14.5 %) 15.7 H Plt Count (130 - 400 /CUMM) 102 L MPV (7.4 - 10.4 FL) 7.3 L Gran % (42.2 - 75.2 %) 34.2 L Lymphocytes % (20.5 - 51.1 %) 56.2 H Monocytes % (1.7 - 9.3 %) 6.8 Eosinophils % (0 - 5 %) 2.2 Basophils % (0.0 - 2.0 %) 0.6 Absolute Granulocytes (1.4 - 6.5 /CUMM) 1.1 L Absolute Lymphocytes (1.2 - 3.4 /CUMM) 1.9 Absolute Monocytes (0.10 - 0.60 /CUMM) 0.2 Absolute Eosinophils (0.0 - 0.7 /CUMM) 0.1 Absolute Basophils (0.0 - 0.2 /CUMM) 0 Miscellaneous Phlebotomy Draw Site RIGHT RADIAL 06/03 1643 Chemistry Sodium (137 - 145 mmol/L) 142 Potassium (3.5 - 5.1 mmol/L) 3.9 Chloride (98 - 107 mmol/L) 114 H Carbon Dioxide (22 - 30 mmol/L) 16 L Anion Gap (5 - 16) 11 BUN (9 - 20 mg/dL) 66 H Creatinine (0.7 - 1.2 mg/dL) 7.7 *H Estimated GFR (>60 ml/min) 7 L Glucose (65 - 99 mg/dL) 104 H Calcium (8.4 - 10.2 mg/dL) 6.7 L Phosphorus (2.5 - 4.5 mg/dL) 9.5 H Magnesium (1.6 - 2.3 mg/dL) 3.0 H Total Bilirubin (0.2 - 1.3 mg/dL) 0.3 AST (17 - 59 U/L) 27 ALT (21 - 72 U/L) 21 Troponin I (<0.11 ng/ml) < 0.01 Albumin (3.5 - 5.0 g/dL) 2.6 L Vitamin C Pending Hematology CBC w Diff NO MAN DIFF REQ WBC (4.8 - 10.8 /CUMM) 3.2 L RBC (4.70 - 6.10 /CUMM) 2.57 L Hgb (14.0 - 18.0 G/DL) 8.2 L Hct (42 - 52 %) 23.7 L MCV (80.0 - 94.0 FL) 92.5 MCH (27.0 - 31.0 PG) 31.9 H MCHC (33.0 - 37.0 G/DL) 34.5 RDW (11.5 - 14.5 %) 15.9 H Plt Count (130 - 400 /CUMM) 119 L MPV (7.4 - 10.4 FL) 7.0 L Gran % (42.2 - 75.2 %) 59.5 Lymphocytes % (20.5 - 51.1 %) 33.0 Monocytes % (1.7 - 9.3 %) 5.9 Eosinophils % (0 - 5 %) 1.1 Basophils % (0.0 - 2.0 %) 0.5 Absolute Granulocytes (1.4 - 6.5 /CUMM) 1.9 Absolute Lymphocytes (1.2 - 3.4 /CUMM) 1.0 L Total Abs Lymphocytes Pending Absolute Monocytes (0.10 - 0.60 /CUMM) 0.2 Absolute Eosinophils (0.0 - 0.7 /CUMM) 0 Absolute Basophils (0.0 - 0.2 /CUMM) 0 Immunology Lymphocyte Subset Cmmnt Pending Absolute CD3 Count Pending % CD3 Mature T-Lymphs Pending % CD4 [place] Pending Absolute CD4 Count Pending T-Help/Suppress Ratio Pending % CD8 Suppressor Pending Absolute CD8 Count Pending Serology HIV 1&2 RNA (PCR) Pending Urines Urine Color Cancelled Urine Clarity Cancelled Urine pH Cancelled Ur Specific [place] Cancelled Urine Protein Cancelled Urine Ketones Cancelled Urine Nitrite Cancelled Urine Bilirubin Cancelled Urine Urobilinogen Cancelled Ur Leukocyte Esterase Cancelled Ur Microscopic Cancelled Urine Hemoglobin Cancelled Urine Glucose Cancelled 06/03 06/03 06/03 06/03 1534 1533 1530 1529 Blood Gas pH (7.35 - 7.45 PH) 7.11 *L pCO2 (35 - 45 TORR) 36 pO2 (80 - 100 TORR) 164 H HCO3 (21 - 28 MEQ/L) 11 L ABG O2 Sat (Measured) (>96.0 %) 97.0 Carboxyhemoglobin (1.5 - 5.0 %) 0.6 L O2 Concentration % 60% O2 Delivery Method PRB Chemistry Sodium Cancelled Potassium Cancelled Chloride Cancelled Carbon Dioxide Cancelled Anion Gap Cancelled BUN Cancelled Creatinine Cancelled BUN/Creatinine Ratio Cancelled Troponin I Cancelled Cancelled Prolactin Cancelled Hematology CBC w Diff Cancelled WBC Cancelled RBC Cancelled Hgb Cancelled Hct Cancelled MCV Cancelled MCH Cancelled MCHC Cancelled RDW Cancelled Plt Count Cancelled MPV Cancelled Miscellaneous Phlebotomy Draw Site RIGHT RADIAL 06/03 1403 Chemistry Sodium (137 - 145 mmol/L) 139 Potassium (3.5 - 5.1 mmol/L) 3.9 Chloride (98 - 107 mmol/L) 113 H Carbon Dioxide (22 - 30 mmol/L) 15 L Anion Gap (5 - 16) 11 BUN (9 - 20 mg/dL) 66 H Creatinine (0.7 - 1.2 mg/dL) 7.6 *H Estimated GFR (>60 ml/min) 7 L BUN/Creatinine Ratio (7 - 25 %) 8.7 Calcium (8.4 - 10.2 mg/dL) 6.8 L Phosphorus (2.5 - 4.5 mg/dL) 9.0 H Magnesium (1.6 - 2.3 mg/dL) 2.9 H [id number] Pept (<125 pg/mL) 7470 H Albumin (3.5 - 5.0 g/dL) 2.7 L Prolactin (3.7 - 17.9 ng/mL) 35.6 H
[2018-06-06 16:00] VITALS: BP 100/62
--- NOTE | 2018-06-06 16:30 | Transfer of Care Summary ---
Hospital Course Course Hospital Course: 58-year-old man with AIDS, maintained on antiretroviral therapy, hepatitis C successfully treated with Harvoni, left BKA for MRSA osteomyelitis, chronic ulcers on the right foot, status post back surgery with a neurogenic bladder with self catheterization, complicated by recurrent urinary tract infections, status post resection of either a urethral stricture or flap, and chronic kidney disease (hiv/HCV), initially admitted for right pubic ramus fracture, was noted to have some involuntary movements when he went for his ultrasound of the kidneys. Rapid response was called and patient was transferred to the ICU. Was found to be in severe metabolic acidosis in the setting of acute on chronic kidney injury. Following issues were addressed in ICU: Infection: There was concern for aspiration as he presented with some altered mental status and one dose of Unasyn was given. Remained afebrile and followed off of antibiotics throughout the course Continued on antiretroviral therapy. His last viral load undetectable and his CD4 count approximately 500 April 2018. HIV viral load pending. Cardiology: His blood pressure ran in the range of 90s-100 systolic. Was continued on IV fluids Metabolic: Acute on chronic injury in the setting of HIV/history of HCV questionable right moderate hydronephrosis. Nephrology felt there was no emergent need for dialysis at this time. Unclear if moderate right hydronephrosis was acute or chronic issue. Urology was consulted and CT abdomen pelvis noncontrast was ordered. Metabolic acidosis improved with IV bicarbonate drip which was later transitioned to linger lactate His hypocalcemia (corrected 6.6) likely secondary to hyperphosphatemia, was started on calcium carbonate 1300 mg p.o. 3 times daily in between meals. Once calcium improved he was started on vitamin D supplementation ergocalciferol along with calcitriol Hematology Acute on chronic anemia, per nephro will start procrit. Found to have low complement levels C3 =66/ C4 =9, follow up HCV RNA Alimentry renal dialysis diet Neurology EEG showed mild generalized slowing of the background rhythm consistent with diffuse cerebral dysfunction, nonspecific. The sharply contoured activity which could represent muscle artifact or myoclonic activity likely secondary to his hypocalcemia. Keppra was discontinued as there were no epileptogenic features identified on EEG. His pain medications were adjusted. His home dose of OxyContin 40 mg twice daily was decreased to 20 mg twice daily with 2 tabs Percocet every 4 6 as needed. IV morphine was discontinued. His Xanax was tapered to 3 times daily dosing. DVT prophylaxis Subcu heparin Full code Assessment/Plan: HIV viral load pending. follow up HCV RNA Noncontrast CT abdomen and pelvis continue robles catheter
--- NOTE | 2018-06-06 17:06 | Cons- Urology ---
General Information and HPI Consulting Request Date of Consult: 06/06/18 Requested By: Mae Rudolph MD Reason for Consult: Acute on chronic kidney failure with R hydronephrosis Source of Information: patient, old records Exam Limitations: no limitations History of Present Illness: This patient has multiple medical problems including HIV, Hep C, CKD, neurogenic bladder and a hx of a L BKA. He was admitted with groin pain and found to have a pelvic fracture. He has a baseline creatinine in the 4's and on admission it was 7.8. A robles was placed and his creatinine has improved slowly to 6.3. He has a hx of neurogenic bladder and was on intermittent cath and has been cared for by a urologist, Dr Drew Dalton at [place]. He underwent TURP in 2017 for BPH. He has had intermittent R hydronephrosis. On an ultrasound on 06/04/18 there was mild to moderate R hydro. An ultrasound in 04/2018 showed no hydro, an ultrasound in 07/2017 showed moderate R hydro and an ultrasound in 01/2017 showed no hydro. All of these studies were reviewed. On pelvic CT done for his pelvic fracture showed a ? of mild dilation of the distal ureters. He also has a hx of passing a urinary stone a few years ago. He currently has no flank pain. Allergies/Medications Allergies: Coded Allergies: erythromycin base (UNKNOWN 12/02/16) Home Med List: Abacavir Sulfate (Abacavir) 300 MG TABLET 1 TAB PO DAILY ANTIVIRAL (Reported) Albuterol Sulfate (Proair Hfa) 90 MCG HFA.AER.AD 2 PUF INH Q4-6 PRN PRN ASTHMA (Reported) Alprazolam (Xanax) 0.5 MG TABLET 1 TAB PO Q6P PRN ANXIETY/SLEEP (Reported) Calcium Carbonate/Vitamin D3 (Calcium 500 + D Tablet) (Unknown Strength) TABLET (Unknown Dose) PO DAILY SUPPLEMENT (Reported) Dextran 70/Hypromellose (Artificial Tears) 1 EACH DROPERETTE 1 GTT OS BID OCULAR (Reported) Dolutegravir Sodium (Tivicay) 50 MG TABLET 1 TAB PO DAILY HIV (Reported) Folic Acid 1 MG TABLET 1 MG PO DAILY VITAMIN DEFICIENCY Gabapentin (Neurontin) 300 MG CAPSULE 1 CAP PO BID NEUROPATHY (Reported) Lactulose 10 GRAM/15 ML SOLUTION 30 ML PO QAM ENCEPHALOPATHY (Reported) Multiple Vitamin (Multivitamins) 1 EACH TABLET 1 TAB PO DAILY SUPPLEMENT ( Reported) Oxycodone HCl 30 MG TABLET 1 TAB PO Q4-6H PRN PAIN (Reported) Oxycodone HCl (Oxycontin) 40 MG TAB.ER.12H 1 TAB PO BID CHRINIC PAIN ( Reported) Potassium Chloride 20 MEQ TAB.ER.PRT 1 TAB PO DAILY Hypokalemia Prednisolone Acetate (Omnipred) 1 % DROPS.SUSP 1 GTT OS 4 TIMES/DAY OCULAR ( Reported) Sodium Bicarbonate 650 MG TABLET 2 TAB PO Q6 acidosis/ABDIRASHID . Thiamine HCl (Vitamin B-1) 100 MG TABLET 100 MG PO DAILY VITAMIN DEFICIENCY Trazodone HCl 100 MG TABLET 200 MG PO QHS PRN SLEEP (Reported) Current Medications: Current Medications Sig/Puma Start time Last Medication Dose Route Stop Time Status Admin Abacavir Sulfate 300 MG DAILY 06/03 900 AC 06/06 PO 0819 Acetaminophen 650 MG Q6P PRN 06/02 2145 06/04 PO 0914 Albumin Human 12.5 GM Q8 06/05 1400 AC 06/06 IV 06/07 0601 1427 Alprazolam 0.5 MG TID 06/06 1400 AC 06/06 PO 06/13 1359 1426 Alprazolam 0.5 MG Q6 06/03 1800 DC 06/06 PO 06/10 1759 0507 Calcitriol 0.25 MCG DAILY 06/06 1058 AC 06/06 PO 1426 Calcium Carbonate 1,250 MG TID 06/05 1400 AC 06/06 PO 1426 Docusate Sodium 100 MG DAILY 06/03 900 AC 06/05 PO 0745 Dolutegravir Sodium 50 MG DAILY 06/03 900 AC 06/06 PO 0819 Epoetin Gianni 20,000 U Q168 06/05 1400 AC 06/05 SC 1423 Ergocalciferol 50,000 IU ONCE A WEEK 06/06 1000 AC 06/06 PO 1134 Folic Acid 1 MG DAILY 06/03 900 AC 06/06 PO 0818 Heparin Sodium 5,000 UNIT Q8 06/03 0600 AC 06/06 (Porcine) SC 1426 Lactated Ringer's 1,000 ML Q10H 06/06 0945 AC 06/06 IV 1136 Lactated Ringer's 1,000 ML Q8H 06/04 2330 DC 06/06 IV 0820 Lactulose 20 GM DAILY 06/03 900 AC 06/06 PO 0819 Multivitamins 1 TAB DAILY 06/03 09 AC 06/06 Therapeutic PO 0819 Oxycodone HCl 20 MG Q12 06/05 0915 AC 06/06 PO 0820 Oxycodone/ 2 TAB Q4 HRS NEEDED PRN 06/04 1630 AC 06/06 Acetaminophen PO 1134 Polyethylene Glycol 17 GM DAILY 06/03 900 AC 06/05 PO 0746 Senna 187 MG DAILY 06/03 900 AC 06/05 PO 0747 Sevelamer HCl 1,600 MG WM 06/03 1200 AC 06/06 PO 1656 Thiamine HCl 100 MG DAILY 06/03 900 AC 06/06 PO 0819 Trazodone HCl 200 MG QPM PRN 06/02 2345 AC PO Vitamin A/Vitamin D 1 DEDRICK BID 06/03 2100 AC 06/06 TOP 0818 Past History Medical History Blood Transfusion Hx: Yes Neurological: NONE EENT: NONE Cardiovascular: NONE Respiratory: asthma Gastrointestinal: NONE Hepatic: hepatitis C (s/p Tx with Whit) Renal: chronic kidney disease, neurogenic bladder Musculoskeletal: BACK ISSUES Psychiatric: anxiety Endocrine: NONE Blood Disorders: HIV Cancer(s): NONE 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 Home Who Do You Live With? self Services at Home: Nursing Primary Language: Sinhala Smoking Status: Former Smoker ETOH Use: occasional use Illicit Drug Use: denies illicit drug use Functional Ability ADLs Independent: dressing, eating, toileting, bathing. Ambulation: independent IADLs Independent: shopping, housework, finances, food prep, telephone, transportation , medication admin. Exam & Diagnostic Data Vital Signs and I&O Vital Signs Date Time Temp Pulse Resp B/P B/P Pulse O2 O2 Flow FiO2 Mean Ox Delivery Rate 06/06 1600 94 Room Air Room Air 06/06 1600 97.6 84 20 100/62 94 Room Air Room Air 06/06 0800 96 Room Air Room Air 06/06 800 97.9 82 18 102/64 96 Room Air Room Air 06/06 0000 97.8 82 16 109/70 95 Room Air 06/06 0000 95 Room Air 06/05 2000 96 Room Air Intake & Output 06/06 1600 06/06 0000 06/05 1600 06/05 0000 Intake Total 1792 1378 1297 1800 1365 2065 Output Total 1650 1700 1500 1250 1300 400 Balance 142 -322 -203 182 30 5785 Intake, IV 1192 2959 238 0007 885 1345 Intake, Oral 600 240 300 800 480 720 Number 1 2 3 1 1 1 Bowel Movements Output, Urine 1650 1700 1500 1250 1300 400 No acute distress Back: no CVA tenderness Abd: soft and non tender Genitalia: robles in place, draining clear urine Laboratory Tests 06/06 445 Chemistry Sodium (137 - 145 mmol/L) 139 Potassium (3.5 - 5.1 mmol/L) 3.8 Chloride (98 - 107 mmol/L) 112 H Carbon Dioxide (22 - 30 mmol/L) 21 L Anion Gap (5 - 16) 7 BUN (9 - 20 mg/dL) 54 H Creatinine (0.7 - 1.2 mg/dL) 6.3 *H Estimated GFR (>60 ml/min) 9 L Glucose (65 - 99 mg/dL) 82 Calcium (8.4 - 10.2 mg/dL) 6.5 L Phosphorus (2.5 - 4.5 mg/dL) 5.7 H Magnesium (1.6 - 2.3 mg/dL) 2.3 Total Bilirubin (0.2 - 1.3 mg/dL) 0.3 AST (17 - 59 U/L) 21 ALT (21 - 72 U/L) 21 Albumin (3.5 - 5.0 g/dL) 2.5 L Hematology CBC w Diff NO MAN DIFF REQ WBC (4.8 - 10.8 /CUMM) 4.2 L RBC (4.70 - 6.10 /CUMM) 2.58 L Hgb (14.0 - 18.0 G/DL) 8.0 L Hct (42 - 52 %) 23.8 L MCV (80.0 - 94.0 FL) 92.3 MCH (27.0 - 31.0 PG) 31.0 MCHC (33.0 - 37.0 G/DL) 33.6 RDW (11.5 - 14.5 %) 16.1 H Plt Count (130 - 400 /CUMM) 91 L MPV (7.4 - 10.4 FL) 6.7 L Gran % (42.2 - 75.2 %) 40.3 L Lymphocytes % (20.5 - 51.1 %) 51.1 Monocytes % (1.7 - 9.3 %) 6.6 Eosinophils % (0 - 5 %) 1.6 Basophils % (0.0 - 2.0 %) 0.4 Absolute Granulocytes (1.4 - 6.5 /CUMM) 1.7 Absolute Lymphocytes (1.2 - 3.4 /CUMM) 2.2 Absolute Monocytes (0.10 - 0.60 /CUMM) 0.3 Absolute Eosinophils (0.0 - 0.7 /CUMM) 0.1 Absolute Basophils (0.0 - 0.2 /CUMM) 0 Assessment/Plan Assessment/Plan Imp: 1. Intermittent R hydro of unclear cause. His neurogenic bladder could be playing a role but this effect should be minimized by the current indwelling foly 2. ABDIRASHID on CKD 3. Multiple medical issues Plan: 1. Would consider non contrast CT of abd and pelvis to further evaluate R hydronephrosis Consult Acknowledgment - Thank you for your consult request.
[2018-06-07] VITALS: BP 150/80
--- NOTE | 2018-06-07 02:27 | CT SCAN REPORT ---
EXAMINATION: CT ABDOMEN AND PELVIS WITHOUT CONTRAST CLINICAL INFORMATION: Acute on chronic right kidney injury. COMPARISON: Renal ultrasound June 04, 2018. CT pelvis June 02, 2018 CT abdomen July 27, 2007 TECHNIQUE: Multidetector volumetric imaging was performed from the superior aspect of the liver through the pubic symphysis. Sagittal and coronal reformatted images were obtained on the technologist's workstation. DLP: 728.57 mGy-cm FINDINGS: LUNG BASES: There is emphysematous change of lungs. There is consolidation/atelectasis at the dependent right posterior lung base. LIVER, GALLBLADDER, AND BILIARY TREE: There is mild lobularity of the surface of the liver consistent with cirrhosis. No focal liver lesion. No intrahepatic bile duct dilatation. The right lobe of liver measures 16 cm. The gallbladder is contracted. There are multiple small gallstones within the gallbladder. There is no bile duct dilatation. PANCREAS: Unremarkable. SPLEEN: Spleen is enlarged measuring 16 cm superior inferior. ADRENAL GLANDS: Unremarkable. KIDNEYS AND URETERS: There is moderate hydronephrosis of the right kidney with distention renal pelvis and calyces but no right-sided hydroureter. The severity of the hydronephrosis is similar to the renal ultrasound of June 04, 2018. There is no renal or ureteral stone. There is a less than 1 mm size stone in the midpole left kidney. There is no hydronephrosis of the left collecting system. BLADDER: Mcgregor catheter within the bladder. The bladder is empty. MESENTERY/GASTROINTESTINAL TRACT: There is a large collection of stool throughout the colon, in particular in the left colon and sigmoid and rectum. There is edematous thickening of the wall of the rectum and sigmoid with edema in the surrounding fat consistent with stercoral cortical colitis. The small bowel loops are normal. The appendix is not seen. There is a small amount of fluid in the paracolic gutter and lower pelvis is likely related to stercoral colitis. There is no abscess. ABDOMINAL WALL: No significant hernia is appreciated. LYMPH NODES: Normal. VASCULAR: There are scattered vascular calcifications of the wall of aorta. There is no aneurysm. PELVIC VISCERA: Unremarkable. OSSEOUS STRUCTURES: Status post fusion L4-L5 with right-sided transpedicular screws. IMPRESSION: 1. Cirrhosis of liver with splenomegaly. 2. Cholelithiasis. 3. Hydronephrosis of the right kidney similar to prior ultrasound June 04, 2018. 4. Stercoral colitis with large volume of stool in the sigmoid colon and rectum sigmoid. 5. Small volume of free fluid in the lower pelvis that is likely related to stercoral colitis. No abscess. 6. Right basilar infiltrate/atelectasis at the posterior right lung base.
[2018-06-07 04:39] LABS: ABSOLUTE BASOPHIL COUNT 0 /CUMM (0.0-0.2); ABSOLUTE EOSINOPHIL COUNT 0.1 /CUMM (0.0-0.7); ABSOLUTE GRANULOCYTE CT 2.1 /CUMM (1.4-6.5); ABSOLUTE LYMPH COUNT 2.3 /CUMM (1.2-3.4); ABSOLUTE MONOCYTE COUNT 0.3 /CUMM (0.10-0.60); BASOPHIL % 0.4 % (0.0-2.0); EOSINOPHIL % 1.7 % (0-5); GRANULOCYTE % 43.5 % (42.2-75.2); HEMATOCRIT 23.1 % (42-52); MEAN CORPUSCULAR HGB 31.7 PG (27.0-31.0); MEAN CORPUSCULAR HGB CONC 33.8 G/DL (33.0-37.0); MEAN CORPUSCULAR VOLUME 93.7 FL (80.0-94.0); MEAN PLATELET VOLUME 7.2 FL (7.4-10.4); PLATELET COUNT 82 /CUMM (130-400); RBC DISTRIBUTION WIDTH 16.8 % (11.5-14.5); RED BLOOD CELL CT 2.46 /CUMM (4.70-6.10); WHITE BLOOD CELL COUNT 4.7 /CUMM (4.8-10.8)
[2018-06-07 08:00] VITALS: BP 138/60
--- NOTE | 2018-06-07 08:10 | PN- Housestaff ---
See Addendum Subjective Follow-up For: The patient did well overnight. He does complain of copious diarrhea associated with rectal burning. He says he has a history of hemorrhoids. Otherwise, he has no chest pain, shortness of breath, or dysuria. He is concerned about his kidney function and was asking about dialysis options. Review of Systems Constitutional: Reports: no symptoms. EENTM: Reports: no symptoms. Cardiovascular: Reports: no symptoms. Respiratory: Reports: no symptoms. Gastrointestinal: Reports: see HPI. Genitourinary: Reports: no symptoms. Musculoskeletal: Reports: no symptoms. Skin: Reports: no symptoms. Neurological/Psychological: Reports: no symptoms. Hematologic/Endocrine: Reports: no symptoms. Immunologic/Allergic: Reports: no symptoms. Objective Last 24 Hrs of Vital Signs/I&O Vital Signs Date Time Temp Pulse Resp B/P B/P Pulse O2 O2 Flow FiO2 Mean Ox Delivery Rate 06/07 800 95 Room Air Room Air 06/07 08 98.6 88 14 138/60 95 Room Air Room Air 06/07 0000 97 Room Air 06/07 0000 97.7 93 18 150/80 97 Room Air 06/06 1600 94 Room Air Room Air 06/06 1600 97.6 84 20 100/62 94 Room Air Room Air Intake & Output 06/07 1600 06/07 0800 06/07 0000 Intake Total 1000 1395 Output Total 1700 1999 Balance -700 -605 Intake, Blood 100 Product Intake, IV 900 815 Intake, Oral 100 480 Number 1 Bowel Movements Output, Urine 1700 1999 Physical Exam General Appearance: Alert, Oriented X3, Cooperative, No Acute Distress Cardiovascular: Regular Rate, Normal S1, Normal S2 Lungs: Clear to Auscultation Abdomen: Normal Bowel Sounds, Soft, No Tenderness Extremities: No Edema, Normal Pulses, No Tenderness/Swelling Current Medications: Current Medications Sig/Puma Start time Last Medication Dose Route Stop Time Status Admin Abacavir Sulfate 300 MG DAILY 06/03 09 AC 06/06 PO 08 Acetaminophen 650 MG Q6P PRN 06/02 2145 AC 06/04 PO 0914 Albumin Human 12.5 GM Q8 06/05 1400 DC 06/07 IV 06/07 0601 0638 Alprazolam 0.5 MG TID 06/06 1400 AC 06/06 PO 06/13 1359 2035 Alprazolam 0.5 MG Q6 06/03 1800 DC 06/06 PO 06/10 1759 0507 Calcitriol 0.25 MCG DAILY 06/06 1058 AC 06/06 PO 1426 Calcium Carbonate 1,250 MG TID 06/05 1400 AC 06/06 PO 2034 [place] Butter/Shark 1 DEDRICK Q6-PRN PRN 06/07 0830 UNVr Liver Oil TOP Docusate Sodium 100 MG DAILY 06/03 09 AC 06/05 PO 0745 Dolutegravir Sodium 50 MG DAILY 06/03 09 AC 06/06 PO 0819 Epoetin Gianni 20,000 U Q168 06/05 1400 AC 06/05 SC 1423 Ergocalciferol 50,000 IU ONCE A WEEK 06/06 1000 AC 06/06 PO 1134 Folic Acid 1 MG DAILY 06/03 900 06/06 PO 0818 Heparin Sodium 5,000 UNIT Q8 06/03 0600 AC 06/07 (Porcine) SC 0638 Lactated Ringer's 1,000 ML Q10H 06/06 0945 AC 06/07 IV 0509 Lactated Ringer's 1,000 ML Q8H 06/04 2330 DC 06/06 IV 0820 Lactulose 20 GM DAILY 06/03 09 AC 06/06 PO 0819 Multivitamins 1 TAB DAILY 06/03 09 AC 06/06 Therapeutic PO 0819 Oxycodone HCl 20 MG Q12 06/05 0915 06/06 PO 2035 Oxycodone/ 2 TAB Q4 HRS NEEDED PRN 06/04 1630 AC 06/07 Acetaminophen PO 0716 Polyethylene Glycol 17 GM DAILY 06/03 09 AC 06/05 PO 0746 Senna 187 MG DAILY 06/03 09 AC 06/05 PO 0747 Sevelamer HCl 1,600 MG WM 06/03 1200 AC 06/06 PO 1656 Thiamine HCl 100 MG DAILY 06/03 09 AC 06/06 PO 0819 Trazodone HCl 200 MG QPM PRN 06/02 2345 PO Vitamin A/Vitamin D 1 DEDRICK BID 06/03 2100 06/06 TOP 204 Last 24 Hrs of Lab/Attila Results Last 24 Hrs of Labs/Mics: Laboratory Tests 06/07/18 0415: Anion Gap 8, Estimated GFR 9 L, Glucose 130 H, Calcium 7.2 L, Phosphorus 5.5 H, Magnesium 2.2, Total Bilirubin 0.3, AST 16 L, ALT 25, Albumin 2.5 L, CBC w Diff NO MAN DIFF REQ, RBC 2.46 L, MCV 93.7, MCH 31.7 H, MCHC 33.8, RDW 16.8 H , MPV 7.2 L, Gran % 43.5, Lymphocytes % 47.7, Monocytes % 6.7, Eosinophils % 1.7, Basophils % 0.4, Absolute Granulocytes 2.1, Absolute Lymphocytes 2.3, Absolute Monocytes 0.3, Absolute Eosinophils 0.1, Absolute Basophils 0 Assessment/Plan Assessment: Mr. Molina is a 58-year-old male with past medical history of HIV on HAART, hepatitis C virus s/p Harvoni, CKD, neurogenic bladder status post fusion surgery, left BKA for MRSA osteomyelitis initially placed in observation for left pubic ramus fracture and acute on chronic injury now being transferred to the intensive care unit status post myoclonus secondary to metabolic derangements now with obstructive uropathy that is not improving. Problem list: 1. Obstructive uropathy with acute on chronic kidney failure 2. Stercoral colitis 3. Right pubic ramus fracture 4. Non-anion gap metabolic acidosis with multiple electrolyte abnormalities 5. Pancytopenia #Obstructive uropathy with acute on chronic kidney failure: Patient's previous kidney function was stable around 4 but now his creatinine has bumped to 6 range. He does have right-sided hydronephrosis of unclear etiology seen both on ultrasound and CAT scan yesterday. Is unclear whether relieving the obstruction would improve his renal function but may be worth trying. If he does not improve, he may need dialysis next week. -Appreciate urology and nephrology recommendations -Continue LR 100 mL/h -Mcgregor catheter #Stercoral colitis: CT scan showed significant amount of stool in the left colon , sigmoid, and rectum. He has no signs of perforation or bleeding at this time. -Manual disimpaction and mineral oil enema -Continue oral laxatives -[place] butter/shark liver oil as needed rectal burning #Non-anion gap metabolic acidosis with multiple electrolyte abnormalities: Patient had myoclonus/tetany secondary to hypocalcemia that has subsequently resolved. His electrolyte abnormalities are improving despite poor renal function. His acidosis initially resolved but today is worsening. He also has secondary hyperparathyroidism with hypovitaminosis D. -Consider starting sodium bicarbonate tabs -Continue sevelamer -ergochalciferol and calcitriol 0.25mcg/day -Calcium carbonate #Pancytopenia: Patient has severe anemia, leukopenia, and thrombocytopenia that is stable. Iron studies show likely chronic disease. Patient also has low complement levels. He does have HIV and hepatitis C status post Harvoni. -Follow-up HIV labs -Continue Epogen -Continue HIV medications DVT prophylaxis with heparin Renal dialysis diet Full code Problem List: 1. ABDIRASHID (acute kidney injury) Pain Ratin Pain Location: no Pain Goal: Remain pain free Pain Plan: no Tomorrow's Labs & Rationales: yes Urology consult placed, appreciate recs DVT prophylaxis Subcu heparin Full code Full code
[2018-06-07 14:57] VITALS: BP 120/70
[2018-06-07 22:08] VITALS: BP 116/64
[2018-06-08 06:59] VITALS: BP 98/60
--- NOTE | 2018-06-08 07:11 | PN- Housestaff ---
Chuy DEL VALLE,Trung 06/08/18 0711: Subjective Follow-up For: acute on chronic renal failure Subjective: Seen and examined at [facility] while comfortably sleeping. 24 hr event of patient have a significant bowel movemenet after days of impaction is noted. He reports feeling much better and denies any tremors/asterixix. He is pleasently alert and oriented x3. Review of Systems Constitutional: Reports: see HPI. Objective Last 24 Hrs of Vital Signs/I&O Vital Signs Date Time Temp Pulse Resp B/P B/P Pulse O2 O2 Flow FiO2 Mean Ox Delivery Rate 06/08 0659 98.0 79 18 98/60 97 Room Air 06/07 2208 98.6 84 18 116/64 98 Room Air 06/07 1457 98.7 83 18 120/70 94 Room Air Intake & Output 06/08 1600 06/08 0800 06/08 0000 Intake Total 700 1150 Output Total 900 1475 Balance -200 -325 Intake, IV 600 600 Intake, Oral 100 550 Number 1 Bowel Movements Output, Urine 900 1475 Physical Exam General Appearance: Alert, Oriented X3, Cooperative HEENT: Mucous Membr. moist/pink Neck: No JVD Lymphatic: Cervical nl Cardiovascular: Regular Rate, Normal S1, Normal S2 Lungs: Clear to Auscultation, Normal Air Movement Abdomen: Normal Bowel Sounds, Soft, No Tenderness Neurological: Normal Speech Assessment/Plan Assessment: 58-year-old male with past medical history of HIV on HAART, hepatitis C virus s /p Harvoni, CKD, neurogenic bladder status post fusion surgery, left BKA for MRSA osteomyelitis initially placed in observation for left pubic ramus fracture and acute on chronic injury now being transferred to the intensive care unit status post myoclonus secondary to metabolic derangements now with obstructive uropathy that is not improving. Problem list: 1. Obstructive uropathy with acute on chronic kidney failure 2. Stercoral colitis 3. Right pubic ramus fracture 4. Non-anion gap metabolic acidosis with multiple electrolyte abnormalities 5. Pancytopenia #Obstructive uropathy with acute on chronic kidney failure: Kidney function improving today's creatinine is 5.5, down from 7.8 on admission. He does have right-sided hydronephrosis. His neurogenic neurogenic bladder probably contributing to the hydroneprhosis. Retaining the robles seems to be plausible and will alleviate retention from the neurogenic bladder. Will contine with IVF hydration and trend kidney funtion. nephrology is on board and we will follow their reccomendations. If patient kidney funtion does not improve, we may have to consider dialysis. #Stercoral colitis: CT scan showed significant amount of stool in the left colon , sigmoid, and rectum. He has no signs of perforation or bleeding at this time. -Manual disimpaction and mineral oil enema yielded a significant BM, with relief reported by patient. -Continue oral laxatives (refrain from phosphate laxatives) -[place] butter/shark liver oil as needed rectal burning #Non-anion gap metabolic acidosis with multiple electrolyte abnormalities: Patient had myoclonus/tetany secondary to hypocalcemia that has subsequently resolved. His electrolyte abnormalities are improving despite poor renal function. His acidosis initially resolved but today is worsening. He also has secondary hyperparathyroidism with hypovitaminosis D. -Will restart sodium bicarbonate tabs -Continue sevelamer -ergochalciferol and calcitriol 0.25mcg/day -Will stop calcium carbonate given the normalized calcium. #Pancytopenia: Patient has severe anemia, leukopenia, and thrombocytopenia that is stable. Iron studies show likely chronic disease. Patient also has low complement levels. He does have HIV and hepatitis C status post Harvoni. -Follow-up HIV labs -Continue Epogen -Continue HIV medications DVT prophylaxis with heparin Renal dialysis diet Full code Problem List: 1. Acute on chronic kidney failure Pain Ratin Pain Location: musculoskeletal Pain Goal: Pain 4 or less Pain Plan: per pathway Tomorrow's Labs & Rationales: BEP-ABDIRASHID Ronni DEL VALLE,[facility] 06/08/18 1348: Attending MD Review Statement Attending Statement Attending MD Statement: examined this patient, discuss w/resident/PA/PHOTOGRAPHY COORDINATOR, agreed w/resident/PA/PHOTOGRAPHY COORDINATOR, reviewed EMR data (avail), discussed with nursing, discussed with case mgmt, reviewed images, amended to note Attending Assessment/Plan: Patient seen and examined, feels okay. Denies any complaints at present. Creatinine slowly improving. Nephrology recommends continue IV fluids. Vital Signs Date Time Temp Pulse Resp B/P B/P Pulse O2 O2 Flow FiO2 Mean Ox Delivery Rate 06/08 0800 93 Room Air 06/08 0659 98.0 79 18 98/60 97 Room Air 06/07 2208 98.6 84 18 116/64 98 Room Air 06/07 1457 98.7 83 18 120/70 94 Room Air on exam; aox3, nad. cv; s1,s2, rrr resp; clear abd; soft, nt, bs+ ext; no edema, left BKA Laboratory Tests 06/08 06/08 0610 0400 Chemistry Sodium (137 - 145 mmol/L) 140 Cancelled Potassium (3.5 - 5.1 mmol/L) 3.9 Cancelled Chloride (98 - 107 mmol/L) 114 H Cancelled Carbon Dioxide (22 - 30 mmol/L) 19 L Cancelled Anion Gap (5 - 16) 7 Cancelled BUN (9 - 20 mg/dL) 47 H Cancelled Creatinine (0.7 - 1.2 mg/dL) 5.5 *H Cancelled Estimated GFR (>60 ml/min) 11 L Glucose (65 - 99 mg/dL) 105 H Cancelled Calcium (8.4 - 10.2 mg/dL) 7.5 L Cancelled Phosphorus (2.5 - 4.5 mg/dL) 5.2 H Cancelled Magnesium (1.6 - 2.3 mg/dL) 2.1 Cancelled Total Bilirubin (0.2 - 1.3 mg/dL) 0.3 Cancelled AST (17 - 59 U/L) 13 L Cancelled ALT (21 - 72 U/L) 23 Cancelled Albumin (3.5 - 5.0 g/dL) 2.5 L Cancelled Hematology CBC w Diff NO MAN DIFF REQ Cancelled WBC (4.8 - 10.8 /CUMM) 4.6 L Cancelled RBC (4.70 - 6.10 /CUMM) 2.38 L Cancelled Hgb (14.0 - 18.0 G/DL) 8.0 L Cancelled Hct (42 - 52 %) 22.7 L Cancelled MCV (80.0 - 94.0 FL) 95.5 H Cancelled MCH (27.0 - 31.0 PG) 33.9 H Cancelled MCHC (33.0 - 37.0 G/DL) 35.5 Cancelled RDW (11.5 - 14.5 %) 16.1 H Cancelled Plt Count (130 - 400 /CUMM) 83 L Cancelled MPV (7.4 - 10.4 FL) 8.3 Cancelled Gran % (42.2 - 75.2 %) 44.1 Lymphocytes % (20.5 - 51.1 %) 44.7 Monocytes % (1.7 - 9.3 %) 7.1 Eosinophils % (0 - 5 %) 3.7 Basophils % (0.0 - 2.0 %) 0.4 Absolute Granulocytes (1.4 - 6.5 /CUMM) 2.0 Absolute Lymphocytes (1.2 - 3.4 /CUMM) 2.0 Absolute Monocytes (0.10 - 0.60 /CUMM) 0.3 Absolute Eosinophils (0.0 - 0.7 /CUMM) 0.2 Absolute Basophils (0.0 - 0.2 /CUMM) 0 A/P; 58 y/o M with pmh sig for HIV on HAART, HCV s/p Harvoni, CKD stage 4, anxiety, ch anemia likely 2/2 to HIV and CKD and asthma, recnent fall is admitted with acute right groin pain and found to have Subtle nondisplaced fracture along the right superior pubic ramus which extends into the acetabulum addition to a minimally displaced fracture of the right inferior pubic ramus. There is no fracture of the right femur identified on CT pelvis. Patient also has acute on chronic kidney disease. Patient developed twiching movements and was tx to ICU with question of new seizure which later turned out to be some kind of clonus 2/2 to metabolic derrangements as evaluated by Neuro. patient noW transferred back to telemetry. Still getting IV fluids. Discussed with nephrology. Would like to see his creatinine coming back in the range of 4s. Please follow nephrology recommendations in terms of IV fluids and bicarb. Continue the rest of the medications. Will also call urology and determine about the plan for this. Continue the rest of the medications. Pain management adequate. Pharmacologic DVT prophylaxis secondary to thrombocytopenia.
[2018-06-08 08:27] LABS: ABSOLUTE BASOPHIL COUNT 0 /CUMM (0.0-0.2); ABSOLUTE EOSINOPHIL COUNT 0.2 /CUMM (0.0-0.7); ABSOLUTE MONOCYTE COUNT 0.3 /CUMM (0.10-0.60); BASOPHIL % 0.4 % (0.0-2.0); EOSINOPHIL % 3.7 % (0-5); GRANULOCYTE % 44.1 % (42.2-75.2); HEMATOCRIT 22.7 % (42-52); MEAN CORPUSCULAR HGB 33.9 PG (27.0-31.0); MEAN CORPUSCULAR HGB CONC 35.5 G/DL (33.0-37.0); MEAN CORPUSCULAR VOLUME 95.5 FL (80.0-94.0); MEAN PLATELET VOLUME 8.3 FL (7.4-10.4); PLATELET COUNT 83 /CUMM (130-400); RBC DISTRIBUTION WIDTH 16.1 % (11.5-14.5); RED BLOOD CELL CT 2.38 /CUMM (4.70-6.10); WHITE BLOOD CELL COUNT 4.6 /CUMM (4.8-10.8)
--- NOTE | 2018-06-08 08:46 | PN- Nephrology ---
Assessment/Plan Nephrology Assessment: ABDIRASHID: Creatinine remains higher than baseline, but improving. ABDIRASHID I suspect due to prerenal azotemia +/- post renal factors (rt hydro) . Would continue IV hydration, but can lower rate to 75 cc/hr. No acute diaalytic need. Rt hydronephrosis: Urology on board & to f/up with consideration for cysto/Rt ureteral stenting. CKD 5: His baseline creatinines in the fours consistent with CKD stage 5. No urgent dialytic need as above however clearly with impending end stage ESRD in the not too distant future. Not a candidate for home dialysis as he lives alone & fuctionally limited by the BKA. Consideration can be given to having AVF created in near future. need to avoid nephrotoxins such as Fleets enemas with sodium phosphate. Hypocalcemia with secondary hyperparathyroidism and hypovitaminosis D: Improving, continue calcitriol, calcium carbonate and & ergocalciferol met acidosis: would add sodium bicarb tabs anemia of CKD: continue epogen Suggestion: avoid nephrotoxins (ie Fleets sodium phosphate enemas) no acute dialytic need urology f/up continue IVFs; cut back to LR at 75 cc add sodium bicarb 650 mg tablets, 2 tablets (1300 mg) po bid Subjective Subjective: Feels a bit better taking PO creat improved to 5.5 rt hydro noted on US/CT; urology following twitching improved c/o anxiety Review of Systems: no fever/chills no cp/sob no vomiting/diarrhea Objective Vital Signs and I&Os Vital Signs Date Time Temp Pulse Resp B/P B/P Pulse O2 O2 Flow FiO2 Mean Ox Delivery Rate 06/08 0659 98.0 79 18 98/60 97 Room Air 06/07 2208 98.6 84 18 116/64 98 Room Air 06/07 1457 98.7 83 18 120/70 94 Room Air Intake & Output 06/08 1600 06/08 0400 06/07 1600 06/07 0400 06/06 040 Intake Total 700 1150 1930 1395 3170 1297 Output Total 900 1475 2903 2000 3350 1500 Balance -200 -325 -973 -605 -180 -203 Intake, Blood 100 Product Intake, IV 559 685 5320 815 2330 997 Intake, Oral 100 550 400 480 840 300 Number 1 1 3 3 Bowel Movements Output, Stool 3 Output, Urine 900 1475 2900 2000 3350 1500 Physical Exam: General: NAD, A+O x3. HEENT: NC/AT. No icterus. Moist mucosa Neck: negative for NANDO, JVD CV: RRR, no m/r/g Pulm: CTAB, no rales Abd: soft, NT Lower Ext: + L BKA Upper Ext: no AVFs or AVGs Neuro: neg tremor, no asterixis : + robles catheter Current Medications: Current Medications Sig/Puma Start time Last Medication Dose Route Stop Time Status Admin Abacavir Sulfate 300 MG DAILY 06/03 900 AC 06/07 PO 1046 Acetaminophen 650 MG Q6P PRN 06/02 2145 AC 06/04 PO 0914 Alprazolam 0.5 MG TID 06/06 1400 AC 06/07 PO 06/13 1359 2111 Calcitriol 0.25 MCG DAILY 06/06 1058 AC 06/07 PO 1047 Calcium Carbonate 1,250 MG TID 06/05 1400 AC 06/07 PO 2111 [place] Butter/Shark 1 DEDRICK Q6-PRN PRN 06/07 0830 AC 06/07 Liver Oil TOP 1050 Docusate Sodium 100 MG DAILY 06/03 900 AC 06/07 PO 1046 Dolutegravir Sodium 50 MG DAILY 06/03 900 AC 06/07 PO 1047 Epoetin Gianni 20,000 U Q168 06/05 1400 AC 06/05 SC 1423 Ergocalciferol 50,000 IU ONCE A WEEK 06/06 1000 AC 06/06 PO 1134 Folic Acid 1 MG DAILY 06/03 900 AC 06/07 PO 1046 Heparin Sodium 5,000 UNIT Q8 06/03 0600 DC 06/07 (Porcine) SC 0638 Lactated Ringer's 1,000 ML Q10H 06/06 0945 AC 06/08 IV 0109 Lactulose 20 GM DAILY 06/03 900 AC 06/07 PO 1046 Multivitamins 1 TAB DAILY 06/03 900 AC 06/07 Therapeutic PO 1045 Oxycodone HCl 20 MG Q12 06/05 0915 AC 06/07 PO 2113 Oxycodone/ 2 TAB Q4 HRS NEEDED PRN 06/04 1630 AC 06/08 Acetaminophen PO 0303 Polyethylene Glycol 17 GM DAILY 06/03 900 AC 06/07 PO 1045 Senna 187 MG DAILY 06/03 900 AC 06/07 PO 1047 Sevelamer HCl 1,600 MG WM 06/03 1200 AC 06/07 PO 1702 Sodium Phosphate 1 UNIT ONCE ONE 06/07 900 DC 06/07 RI 06/07 0901 1050 Thiamine HCl 100 MG DAILY 06/03 900 AC 06/07 PO 1045 Trazodone HCl 200 MG QPM PRN 06/02 2345 AC PO Vitamin A/Vitamin D 1 DEDRICK BID 06/03 2100 AC 06/07 [facility] 2113 Results Pertinent Lab Results: Laboratory Tests 06/08 06/08 06/07 0610 0400 0415 Chemistry Sodium (137 - 145 mmol/L) 140 Cancelled 141 Potassium (3.5 - 5.1 mmol/L) 3.9 Cancelled 3.6 Chloride (98 - 107 mmol/L) 114 H Cancelled 114 H Carbon Dioxide (22 - 30 mmol/L) 19 L Cancelled 19 L Anion Gap (5 - 16) 7 Cancelled 8 BUN (9 - 20 mg/dL) 47 H Cancelled 51 H Creatinine (0.7 - 1.2 mg/dL) 5.5 *H Cancelled 6.1 *H Estimated GFR (>60 ml/min) 11 L 9 L Glucose (65 - 99 mg/dL) 105 H Cancelled 130 H Calcium (8.4 - 10.2 mg/dL) 7.5 L Cancelled 7.2 L Phosphorus (2.5 - 4.5 mg/dL) 5.2 H Cancelled 5.5 H Magnesium (1.6 - 2.3 mg/dL) 2.1 Cancelled 2.2 Total Bilirubin (0.2 - 1.3 mg/dL) 0.3 Cancelled 0.3 AST (17 - 59 U/L) 13 L Cancelled 16 L ALT (21 - 72 U/L) 23 Cancelled 25 Albumin (3.5 - 5.0 g/dL) 2.5 L Cancelled 2.5 L Hematology CBC w Diff Pending Cancelled NO MAN DIFF REQ WBC (4.8 - 10.8 /CUMM) Pending Cancelled 4.7 L RBC (4.70 - 6.10 /CUMM) Pending Cancelled 2.46 L Hgb (14.0 - 18.0 G/DL) Pending Cancelled 7.8 L Hct (42 - 52 %) Pending Cancelled 23.1 L MCV (80.0 - 94.0 FL) Pending Cancelled 93.7 MCH (27.0 - 31.0 PG) Pending Cancelled 31.7 H MCHC (33.0 - 37.0 G/DL) Pending Cancelled 33.8 RDW (11.5 - 14.5 %) Pending Cancelled 16.8 H Plt Count (130 - 400 /CUMM) Pending Cancelled 82 L MPV (7.4 - 10.4 FL) Pending Cancelled 7.2 L Gran % (42.2 - 75.2 %) 43.5 Lymphocytes % (20.5 - 51.1 %) 47.7 Monocytes % (1.7 - 9.3 %) 6.7 Eosinophils % (0 - 5 %) 1.7 Basophils % (0.0 - 2.0 %) 0.4 Absolute Granulocytes (1.4 - 6.5 /CUMM) 2.1 Absolute Lymphocytes (1.2 - 3.4 /CUMM) 2.3 Absolute Monocytes (0.10 - 0.60 /CUMM) 0.3 Absolute Eosinophils (0.0 - 0.7 /CUMM) 0.1 Absolute Basophils (0.0 - 0.2 /CUMM) 0 06/06 06/05 06/05 0445 1300 1300 Chemistry Sodium (137 - 145 mmol/L) 139 Potassium (3.5 - 5.1 mmol/L) 3.8 Chloride (98 - 107 mmol/L) 112 H Carbon Dioxide (22 - 30 mmol/L) 21 L Anion Gap (5 - 16) 7 BUN (9 - 20 mg/dL) 54 H Creatinine (0.7 - 1.2 mg/dL) 6.3 *H Estimated GFR (>60 ml/min) 9 L Glucose (65 - 99 mg/dL) 82 Calcium (8.4 - 10.2 mg/dL) 6.5 L Phosphorus (2.5 - 4.5 mg/dL) 5.7 H Magnesium (1.6 - 2.3 mg/dL) 2.3 Total Bilirubin (0.2 - 1.3 mg/dL) 0.3 AST (17 - 59 U/L) 21 ALT (21 - 72 U/L) 21 Albumin (3.5 - 5.0 g/dL) 2.5 L Hematology CBC w Diff NO MAN DIFF REQ WBC (4.8 - 10.8 /CUMM) 4.2 L RBC (4.70 - 6.10 /CUMM) 2.58 L Hgb (14.0 - 18.0 G/DL) 8.0 L Hct (42 - 52 %) 23.8 L MCV (80.0 - 94.0 FL) 92.3 MCH (27.0 - 31.0 PG) 31.0 MCHC (33.0 - 37.0 G/DL) 33.6 RDW (11.5 - 14.5 %) 16.1 H Plt Count (130 - 400 /CUMM) 91 L MPV (7.4 - 10.4 FL) 6.7 L Gran % (42.2 - 75.2 %) 40.3 L Lymphocytes % (20.5 - 51.1 %) 51.1 Monocytes % (1.7 - 9.3 %) 6.6 Eosinophils % (0 - 5 %) 1.6 Basophils % (0.0 - 2.0 %) 0.4 Absolute Granulocytes (1.4 - 6.5 /CUMM) 1.7 Absolute Lymphocytes (1.2 - 3.4 /CUMM) 2.2 Absolute Monocytes (0.10 - 0.60 /CUMM) 0.3 Absolute Eosinophils (0.0 - 0.7 /CUMM) 0.1 Absolute Basophils (0.0 - 0.2 /CUMM) 0 Serology Hepatitis C Antibody (NONREACTIVE) REACTIVE H HCV RNA (PCR) IUs/ml Pending HCV RNA PCR log IUs/ml Pending
[2018-06-08 14:51] VITALS: BP 138/66
--- NOTE | 2018-06-08 16:47 | PN- Urology ---
Surgical Brief Attending Note Brief Attending Note: CT scan shows moderate R hydronephrosis without dilation of R ureter. 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 He has had multiple imaging studies over the last 2 years some of which showed R hydro and others did not. I suspect that at times of high urine output the hydro is evident due to partial obstruction and at times of lower urine output the UPJ does not provide much resistence to urine flow and no hydro is seen. His creatinine continues to slowly improve. At this point will continue to follow conservative and see what creatinine lexii is. If it returns to baseline will likely just follow with periodic renal imaging. If in does not return to baseline then may consider a R ureteral stent
[2018-06-08 21:42] VITALS: BP 110/60
[2018-06-09 07:28] VITALS: BP 116/64
[2018-06-09 07:50] LABS: ABSOLUTE BASOPHIL COUNT 0 /CUMM (0.0-0.2); ABSOLUTE EOSINOPHIL COUNT 0.1 /CUMM (0.0-0.7); ABSOLUTE MONOCYTE COUNT 0.4 /CUMM (0.10-0.60); BASOPHIL % 0.5 % (0.0-2.0); GRANULOCYTE % 43.5 % (42.2-75.2); HEMATOCRIT 23.1 % (42-52); MEAN CORPUSCULAR HGB 33.5 PG (27.0-31.0); MEAN CORPUSCULAR HGB CONC 34.9 G/DL (33.0-37.0); MEAN CORPUSCULAR VOLUME 95.9 FL (80.0-94.0); MEAN PLATELET VOLUME 8.3 FL (7.4-10.4); PLATELET COUNT 94 /CUMM (130-400); RBC DISTRIBUTION WIDTH 16.8 % (11.5-14.5); RED BLOOD CELL CT 2.41 /CUMM (4.70-6.10); WHITE BLOOD CELL COUNT 4.6 /CUMM (4.8-10.8)
--- NOTE | 2018-06-09 07:59 | PN- Housestaff ---
Chuy DEL VALLE,Trung 06/09/18 0759: Subjective Follow-up For: ABDIRASHID Hydronephrosis Subjective: Seen while fast asleep, awoken by verbal stimuli. He complains of constipation and hemorrhoidal pain. A0X3 No acute o/n event Review of Systems Constitutional: Reports: see HPI. Objective Last 24 Hrs of Vital Signs/I&O Vital Signs Date Time Temp Pulse Resp B/P B/P Pulse O2 O2 Flow FiO2 Mean Ox Delivery Rate 06/09 0728 98.0 76 18 116/64 95 Room Air 06/08 2200 Room Air Room Air 06/08 2142 97.8 79 18 110/60 93 Room Air 06/08 1452 Room Air 06/08 1451 98.2 93 18 138/66 94 Room Air Intake & Output 06/09 1600 06/09 0800 06/09 0000 Intake Total 750 250 Output Total 1500 3000 Balance -750 -2750 Intake, IV 600 150 Intake, Oral 150 100 Number 1 3 Bowel Movements Output, Urine 1500 3000 Patient 89.528 kg Weight Weight Bed scale Measurement Method Physical Exam General Appearance: Alert, Oriented X3, Cooperative Lymphatic: Cervical nl Cardiovascular: Regular Rate, Normal S1, Normal S2 Lungs: Clear to Auscultation, Normal Air Movement Abdomen: Normal Bowel Sounds, Soft, No Tenderness Other Physical Findings: HEENT: Mucous Membr. moist/pink Neck: No JVD Lymphatic: Cervical nl Cardiovascular: Regular Rate, Normal S1, Normal S2 Lungs: Clear to Auscultation, Normal Air Movement Abdomen: Normal Bowel Sounds, Soft, No Tenderness Neurological: Normal Speech Assessment/Plan Assessment: 58-year-old male with past medical history of HIV on HAART, hepatitis C virus s/ p Harvoni, CKD, neurogenic bladder status post fusion surgery, left BKA for MRSA osteomyelitis initially placed in observation for left pubic ramus fracture and acute on chronic injury now being transferred to the intensive care unit status post myoclonus secondary to metabolic derangements now with obstructive uropathy that is not improving. Problem list: 1. Obstructive uropathy with acute on chronic kidney failure 2. Stercoral colitis 3. Right pubic ramus fracture 4. Non-anion gap metabolic acidosis with multiple electrolyte abnormalities 5. Pancytopenia #Obstructive uropathy with acute on chronic kidney failure: Kidney function improving today's creatinine is 5.1, down from 7.8 on admission. He does have right-sided hydronephrosis. His neurogenic neurogenic bladder probably contributing to the hydroneprhosis. Retaining the robles seems to be plausible and will alleviate retention from the neurogenic bladder. Will contine with IVF hydration and trend kidney funtion. nephrology is on board and we will follow their reccomendations. If patient kidney funtion does not improve, we may have to consider dialysis. #Stercoral colitis: CT scan showed significant amount of stool in the left colon , sigmoid, and rectum. He has no signs of perforation or bleeding at this time. -Manual disimpaction and mineral oil enema yielded a significant BM, with relief reported by patient. -Continue oral laxatives (refrain from phosphate laxatives) -[place] butter/shark liver oil as needed rectal burning #Non-anion gap metabolic acidosis with multiple electrolyte abnormalities: Patient had myoclonus/tetany secondary to hypocalcemia that has subsequently resolved. His electrolyte abnormalities are improving despite poor renal function. His acidosis is improving, he is currently on his home dose of sodium bicarb He also has secondary hyperparathyroidism with hypovitaminosis D. vs CKD. -Will restart sodium bicarbonate tabs -Continue sevelamer -ergochalciferol and calcitriol 0.25mcg/day -Will stop calcium carbonate given the normalized calcium. #Pancytopenia: Patient has severe anemia, leukopenia, and thrombocytopenia that is stable. Iron studies show likely chronic disease. Patient also has low complement levels. He does have HIV and hepatitis C status post Harvoni. -Follow-up HIV labs -Continue Epogen -Continue HIV medications DVT prophylaxis with heparin Renal dialysis diet Full code Problem List: 1. [id number] kidney injury Pain Ratin Pain Location: DIFFUSE Pain Goal: Remain pain free Pain Plan: per pathway Tomorrow's Labs & Rationales: BEP-ABDIRASHID Rudolph MD,Mae 06/09/18 1101: Attending MD Review Statement Attending Statement Attending MD Statement: examined this patient, discuss w/resident/PA/PHOSPHORIC ACID SUPERVISOR, agreed w/resident/PA/PHOSPHORIC ACID SUPERVISOR, reviewed EMR data (avail), discussed with nursing, discussed with case mgmt, reviewed images, amended to note Attending Assessment/Plan: Patient seen and examined, states that he is feeling tired. Not able to get a good night sleep. Creatinine is slowly improving on IV fluids. Vital Signs Date Time Temp Pulse Resp B/P B/P Pulse O2 O2 Flow FiO2 Mean Ox Delivery Rate 06/09 0728 98.0 76 18 116/64 95 Room Air 06/08 2200 Room Air Room Air 06/08 2142 97.8 79 18 110/60 93 Room Air 06/08 1452 Room Air 06/08 1451 98.2 93 18 138/66 94 Room Air on exam; aox3, nad. cv; s1,s2, rrr resp; clear abd; soft, nt, bs+ ext; no edema, left BKA Laboratory Tests 06/09 0626 Chemistry Sodium (137 - 145 mmol/L) 143 Potassium (3.5 - 5.1 mmol/L) 4.0 Chloride (98 - 107 mmol/L) 117 H Carbon Dioxide (22 - 30 mmol/L) 18 L Anion Gap (5 - 16) 8 BUN (9 - 20 mg/dL) 46 H Creatinine (0.7 - 1.2 mg/dL) 5.1 *H Estimated GFR (>60 ml/min) 12 L BUN/Creatinine Ratio (7 - 25 %) 9.0 Calcium (8.4 - 10.2 mg/dL) 7.7 L Magnesium (1.6 - 2.3 mg/dL) 2.0 Alkaline Phosphatase (< 127 U/L) 79 Hematology CBC w Diff NO MAN DIFF REQ WBC (4.8 - 10.8 /CUMM) 4.6 L RBC (4.70 - 6.10 /CUMM) 2.41 L Hgb (14.0 - 18.0 G/DL) 8.1 L Hct (42 - 52 %) 23.1 L MCV (80.0 - 94.0 FL) 95.9 H MCH (27.0 - 31.0 PG) 33.5 H MCHC (33.0 - 37.0 G/DL) 34.9 RDW (11.5 - 14.5 %) 16.8 H Plt Count (130 - 400 /CUMM) 94 L MPV (7.4 - 10.4 FL) 8.3 Gran % (42.2 - 75.2 %) 43.5 Lymphocytes % (20.5 - 51.1 %) 43.4 Monocytes % (1.7 - 9.3 %) 9.6 H Eosinophils % (0 - 5 %) 3.0 Basophils % (0.0 - 2.0 %) 0.5 Absolute Granulocytes (1.4 - 6.5 /CUMM) 2.0 Absolute Lymphocytes (1.2 - 3.4 /CUMM) 2.0 Absolute Monocytes (0.10 - 0.60 /CUMM) 0.4 Absolute Eosinophils (0.0 - 0.7 /CUMM) 0.1 Absolute Basophils (0.0 - 0.2 /CUMM) 0 A/P; 58 y/o M with pmh sig for HIV on HAART, HCV s/p Harvoni, CKD stage 4, anxiety, ch anemia likely 2/2 to HIV and CKD and asthma, recnent fall is admitted with acute right groin pain and found to have Subtle nondisplaced fracture along the right superior pubic ramus which extends into the acetabulum addition to a minimally displaced fracture of the right inferior pubic ramus. There is no fracture of the right femur identified on CT pelvis. Pt seen by ortho and conservative Mx was recommended with PT. Patient also has acute on chronic kidney disease. Patient developed twiching movements and was tx to ICU with question of new seizure which later turned out to be some kind of clonus 2/ 2 to metabolic derrangements as evaluated by Neuro. Patient now transferred back to telemetry. He had an episode of brief NSVT last night. Continue current IV fluids. Oral bicarb has been started per nephrology recommendations. Continue current pain management. Patient was encouraged to participate with physical therapy. He will need to go to rehab when his creatinine comes back to baseline. Continue the rest of the management. He had a recent echo which showed good ejection fraction[facility].
--- NOTE | 2018-06-09 14:38 | PN- Nephrology ---
Assessment/Plan Nephrology Assessment: 1. 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 ABDIRASHID -slowly improving with hydration and Mcgregor drainage 3. Hypotension -much improved 4. Neuromuscular irritability -much improved; may have been related to narcotic medications although uremia may have also been playing a role 5. Metabolic acidosis -now on po sodium bicarbonate 6. Hyperphosphatemia -improved on sevelamer 7. Profound hypocalcemia -asymptomatic and much improved on Vit D, calcitriol and calcium 8. Pancytopenia including severe anemia 9. Pelvic fractures as noted Suggestion: 1. Agree that we can hold off on cystoscopy with stenting as long as his renal function continues to improve 2. Continue oral hydration and current medication regimen 3. Once he is fully stabilized, we will begin to firm up strategy for renal replacement therapy beginning with plans for vascular access Subjective Subjective: Patient states that he is not getting adequate analgesia for his pelvic pain. Urology input noted and appreciated. Chart and labs reviewed. Objective Vital Signs and I&Os Vital Signs Date Time Temp Pulse Resp B/P B/P Pulse O2 O2 Flow FiO2 Mean Ox Delivery Rate 06/09 0800 98 Room Air 06/09 0728 98.0 76 18 116/64 95 Room Air 06/08 2200 Room Air Room Air 06/08 2142 97.8 79 18 110/60 93 Room Air 06/08 1452 Room Air 06/08 1451 98.2 93 18 138/66 94 Room Air Intake & Output 06/09 1600 06/09 0400 06/08 1600 06/08 0400 06/07 1600 06/07 0400 Intake Total 860 690 8598 1150 1930 1395 Output Total 1500 3000 1950 1475 2903 1999 Balance -750 -2750 -440 -325 -973 -605 Intake, Blood 100 Product Intake, IV 600 150 923 028 5951 815 Intake, Oral 150 100 900 550 400 480 Number 1 3 1 1 Bowel Movements Output, Stool 3 Output, Urine 1500 3000 1950 1475 2900 1999 Patient 197 lb 204 lb Weight Weight Bed scale Bed scale Measurement Method Physical Exam: General: Well-developed chronically ill-appearing white male in NAD Skin: No jaundice, multiple ecchymoses HEENT: Conjunctivae pale, sclerae anicteric, left corneal haziness, mucous membranes dry Neck: Without masses or thyromegaly, no supraclavicular or cervical adenopathy, +JVD Chest: Clear anterolaterally Heart: Regular rate and rhythm without S3 or rub Abdomen: Soft and nontender without palpable masses or organomegaly Extremities: Left BKA, no significant edema Neuro: Awake and alert, no focal findings, no asterixis or myoclonus Results Pertinent Lab Results: Laboratory Tests 06/09 06/08 0626 0610 Chemistry Sodium (137 - 145 mmol/L) 143 140 Potassium (3.5 - 5.1 mmol/L) 4.0 3.9 Chloride (98 - 107 mmol/L) 117 H 114 H Carbon Dioxide (22 - 30 mmol/L) 18 L 19 L Anion Gap (5 - 16) 8 7 BUN (9 - 20 mg/dL) 46 H 47 H Creatinine (0.7 - 1.2 mg/dL) 5.1 *H 5.5 *H Estimated GFR (>60 ml/min) 12 L 11 L BUN/Creatinine Ratio (7 - 25 %) 9.0 Glucose (65 - 99 mg/dL) 105 H Calcium (8.4 - 10.2 mg/dL) 7.7 L 7.5 L Phosphorus (2.5 - 4.5 mg/dL) 5.2 H Magnesium (1.6 - 2.3 mg/dL) 2.0 2.1 Total Bilirubin (0.2 - 1.3 mg/dL) 0.3 AST (17 - 59 U/L) 13 L ALT (21 - 72 U/L) 23 Alkaline Phosphatase (< 127 U/L) 79 Albumin (3.5 - 5.0 g/dL) 2.5 L Hematology CBC w Diff NO MAN DIFF REQ NO MAN DIFF REQ WBC (4.8 - 10.8 /CUMM) 4.6 L 4.6 L RBC (4.70 - 6.10 /CUMM) 2.41 L 2.38 L Hgb (14.0 - 18.0 G/DL) 8.1 L 8.0 L Hct (42 - 52 %) 23.1 L 22.7 L MCV (80.0 - 94.0 FL) 95.9 H 95.5 H MCH (27.0 - 31.0 PG) 33.5 H 33.9 H MCHC (33.0 - 37.0 G/DL) 34.9 35.5 RDW (11.5 - 14.5 %) 16.8 H 16.1 H Plt Count (130 - 400 /CUMM) 94 L 83 L MPV (7.4 - 10.4 FL) 8.3 8.3 Gran % (42.2 - 75.2 %) 43.5 44.1 Lymphocytes % (20.5 - 51.1 %) 43.4 44.7 Monocytes % (1.7 - 9.3 %) 9.6 H 7.1 Eosinophils % (0 - 5 %) 3.0 3.7 Basophils % (0.0 - 2.0 %) 0.5 0.4 Absolute Granulocytes (1.4 - 6.5 /CUMM) 2.0 2.0 Absolute Lymphocytes (1.2 - 3.4 /CUMM) 2.0 2.0 Absolute Monocytes (0.10 - 0.60 /CUMM) 0.4 0.3 Absolute Eosinophils (0.0 - 0.7 /CUMM) 0.1 0.2 Absolute Basophils (0.0 - 0.2 /CUMM) 0 0 06/08 06/07 0400 0415 Chemistry Sodium (137 - 145 mmol/L) Cancelled 141 Potassium (3.5 - 5.1 mmol/L) Cancelled 3.6 Chloride (98 - 107 mmol/L) Cancelled 114 H Carbon Dioxide (22 - 30 mmol/L) Cancelled 19 L Anion Gap (5 - 16) Cancelled 8 BUN (9 - 20 mg/dL) Cancelled 51 H Creatinine (0.7 - 1.2 mg/dL) Cancelled 6.1 *H Estimated GFR (>60 ml/min) 9 L Glucose (65 - 99 mg/dL) Cancelled 130 H Calcium (8.4 - 10.2 mg/dL) Cancelled 7.2 L Phosphorus (2.5 - 4.5 mg/dL) Cancelled 5.5 H Magnesium (1.6 - 2.3 mg/dL) Cancelled 2.2 Total Bilirubin (0.2 - 1.3 mg/dL) Cancelled 0.3 AST (17 - 59 U/L) Cancelled 16 L ALT (21 - 72 U/L) Cancelled 25 Albumin (3.5 - 5.0 g/dL) Cancelled 2.5 L Hematology CBC w Diff Cancelled NO MAN DIFF REQ WBC (4.8 - 10.8 /CUMM) Cancelled 4.7 L RBC (4.70 - 6.10 /CUMM) Cancelled 2.46 L Hgb (14.0 - 18.0 G/DL) Cancelled 7.8 L Hct (42 - 52 %) Cancelled 23.1 L MCV (80.0 - 94.0 FL) Cancelled 93.7 MCH (27.0 - 31.0 PG) Cancelled 31.7 H MCHC (33.0 - 37.0 G/DL) Cancelled 33.8 RDW (11.5 - 14.5 %) Cancelled 16.8 H Plt Count (130 - 400 /CUMM) Cancelled 82 L MPV (7.4 - 10.4 FL) Cancelled 7.2 L Gran % (42.2 - 75.2 %) 43.5 Lymphocytes % (20.5 - 51.1 %) 47.7 Monocytes % (1.7 - 9.3 %) 6.7 Eosinophils % (0 - 5 %) 1.7 Basophils % (0.0 - 2.0 %) 0.4 Absolute Granulocytes (1.4 - 6.5 /CUMM) 2.1 Absolute Lymphocytes (1.2 - 3.4 /CUMM) 2.3 Absolute Monocytes (0.10 - 0.60 /CUMM) 0.3 Absolute Eosinophils (0.0 - 0.7 /CUMM) 0.1 Absolute Basophils (0.0 - 0.2 /CUMM) 0
[2018-06-09 15:31] VITALS: BP 114/68
[2018-06-09 22:59] VITALS: BP 130/70
[2018-06-10 06:54] VITALS: BP 100/50
--- NOTE | 2018-06-10 07:40 | PN- Urology ---
Subjective Subjective: Pt sleeping Objective Vital Signs and I&Os Vital Signs Date Time Temp Pulse Resp B/P B/P Pulse O2 O2 Flow FiO2 Mean Ox Delivery Rate 06/10 0654 98.7 74 20 100/50 95 06/09 2259 98.5 68 20 130/70 97 06/09 1600 98 Room Air 06/09 1531 97.8 81 18 114/68 94 06/09 1530 Room Air 06/09 1527 Room Air 06/09 0800 98 Room Air Intake & Output 06/10 0806/10 0000 06/09 1600 06/09 0806/09 0000 06/08 1600 Intake Total 133 757 7824 750 250 810 Output Total 1750 1800 1500 1500 3000 1050 Balance -850 -1600 20 -750 -2750 -240 Intake, IV 600 150 800 600 150 10 Intake, Oral 300 50 720 150 100 800 Number 1 1 3 Bowel Movements Output, Urine 1750 1800 1500 1500 3000 1050 Patient 213 lb 197 lb 197 lb 204 lb Weight Weight Bed scale Bed scale Measurement Method Robles continues to be inplace draining clear urine Creatinine continues to improve slowly Laboratory Tests 06/10 617 Chemistry Sodium Pending Potassium Pending Chloride Pending Carbon Dioxide Pending Anion Gap Pending BUN Pending Creatinine Pending BUN/Creatinine Ratio Pending Calcium Pending Magnesium Pending Albumin Pending Hematology CBC w Diff Pending WBC Pending RBC Pending Hgb Pending Hct Pending MCV Pending MCH Pending MCHC Pending RDW Pending Plt Count Pending MPV Pending Assessment/Plan Assessment/Plan Imp: 1. Intermittent R hydronephrosis likely due to partial R UPJ obstruction 2. Hx of neurogenic bladder Plan: 1. Continue to follow creatinine. If it does not return to baseline will consider R ureteral stent but if it does return to baseline will likely just follow with periodic renal imaging 2. Would continue robles for now
[2018-06-10 07:54] LABS: ABSOLUTE BASOPHIL COUNT 0 /CUMM (0.0-0.2); ABSOLUTE EOSINOPHIL COUNT 0.1 /CUMM (0.0-0.7); ABSOLUTE GRANULOCYTE CT 1.9 /CUMM (1.4-6.5); ABSOLUTE LYMPH COUNT 2.4 /CUMM (1.2-3.4); ABSOLUTE MONOCYTE COUNT 0.5 /CUMM (0.10-0.60); BASOPHIL % 0.5 % (0.0-2.0); EOSINOPHIL % 2.2 % (0-5); GRANULOCYTE % 38.1 % (42.2-75.2); HEMATOCRIT 22.7 % (42-52); MEAN CORPUSCULAR HGB 33.6 PG (27.0-31.0); MEAN CORPUSCULAR HGB CONC 34.9 G/DL (33.0-37.0); MEAN CORPUSCULAR VOLUME 96.4 FL (80.0-94.0); PLATELET COUNT 101 /CUMM (130-400); RBC DISTRIBUTION WIDTH 17.4 % (11.5-14.5); RED BLOOD CELL CT 2.35 /CUMM (4.70-6.10); WHITE BLOOD CELL COUNT 4.9 /CUMM (4.8-10.8)
--- NOTE | 2018-06-10 09:45 | PN- Housestaff ---
Ernie DEL VALLE,Wendy 06/10/18 0939: Subjective Follow-up For: ABDIRASHID Subjective: Saw pt at bedside this AM. He stated that his pelivc fracture continues to be a source of uncontrolled pain. He also reports constipation and hemorrhoids which prevent him from eating. No other complaints. Review of Systems Constitutional: Denies: chills, fever. EENTM: Reports: no symptoms. Cardiovascular: Denies: chest pain. Respiratory: Reports: no symptoms. Gastrointestinal: Reports: constipation. Denies: abdominal pain. Genitourinary: Reports: no symptoms. Musculoskeletal: Reports: back pain, muscle pain. Skin: Reports: no symptoms. Objective Last 24 Hrs of Vital Signs/I&O Vital Signs Date Time Temp Pulse Resp B/P B/P Pulse O2 O2 Flow FiO2 Mean Ox Delivery Rate 06/10 0654 98.7 74 20 100/50 95 06/09 2259 98.5 68 20 130/70 97 06/09 1600 98 Room Air 06/09 1531 97.8 81 18 114/68 94 06/09 1530 Room Air 06/09 1527 Room Air Intake & Output 06/10 1600 06/10 0800 06/10 0000 Intake Total 900 200 Output Total 1750 1800 Balance -850 -1600 Intake, IV 600 150 Intake, Oral 300 50 Number 1 1 Bowel Movements Output, Urine 1750 1800 Patient 96.615 kg 89.358 kg Weight Physical Exam General Appearance: Alert, Oriented X3, Cooperative, No Acute Distress Skin: No Significant Lesion HEENT: Atraumatic, PERRLA, EOMI Cardiovascular: Regular Rate, Normal S1, Normal S2 Lungs: some expiratory wheezes bilat Abdomen: Soft, No Tenderness Extremities: L. BKA. Open wounds on RLE w/o purulent drainage Current Medications: Current Medications Sig/Puma Start time Last Medication Dose Route Stop Time Status Admin Abacavir Sulfate 300 MG DAILY 06/03 0900 AC 06/10 PO 0938 Acetaminophen 650 MG Q6P PRN 06/02 2145 AC 06/04 PO 0914 Alprazolam 0.5 MG TID 06/06 1400 AC 06/10 PO 06/13 1359 0937 Calcitriol 0.25 MCG DAILY 06/06 1058 AC 06/10 PO 0938 Calcium Carbonate 1,250 MG WITH MEALS 06/08 1200 DC 06/09 PO 1651 [place] Butter/Shark 1 DEDRICK Q6-PRN PRN 06/07 0830 AC 06/09 Liver Oil TOP 1816 Docusate Sodium 100 MG DAILY 06/03 09 AC 06/10 PO 0938 Dolutegravir Sodium 50 MG DAILY 06/03 09 AC 06/10 PO 0937 Epoetin Gianni 20,000 U Q168 06/05 1400 AC 06/05 SC 1423 Ergocalciferol 50,000 IU ONCE A WEEK 06/06 1000 AC 06/06 PO 1134 Folic Acid 1 MG DAILY 06/03 09 AC 06/10 PO 0938 Lactated Ringer's 1,000 ML Q10H 06/06 0945 AC 06/09 IV 2331 Lactulose 20 GM DAILY 06/03 900 AC 06/10 PO 0937 Multivitamins 1 TAB DAILY 06/03 900 AC 06/10 Therapeutic PO 0938 Oxycodone HCl 20 MG Q12 06/05 0915 AC 06/10 PO 0937 Oxycodone/ 2 TAB Q4 HRS NEEDED PRN 06/04 1630 AC 06/10 Acetaminophen PO 0937 Polyethylene Glycol 17 GM DAILY 06/03 900 AC 06/10 PO 0937 Senna 187 MG DAILY 06/03 09 AC 06/10 PO 0938 Sevelamer HCl 1,600 MG WM 06/03 1200 AC 06/09 PO 1651 Sodium Bicarbonate 1,300 MG BID 06/09 2100 AC 06/10 PO 0938 Sodium Bicarbonate 1,300 MG Q6 06/08 1200 DC 06/09 PO 0508 Thiamine HCl 100 MG DAILY 06/03 900 AC 06/10 PO 0938 Trazodone HCl 200 MG QPM PRN 06/02 2345 PO Vitamin A/Vitamin D 1 DEDRICK BID 06/03 2100 AC 06/10 TOP 0938 Last 24 Hrs of Lab/Attila Results Last 24 Hrs of Labs/Mics: Laboratory Tests 06/10/18 0617: Anion Gap 6, Estimated GFR 13 L, BUN/Creatinine Ratio 9.8, Calcium 7.4 L, Magnesium 2.0, Albumin 2.3 L, CBC w Diff NO MAN DIFF REQ, RBC 2.35 L, MCV 96.4 H, MCH 33.6 H, MCHC 34.9, RDW 17.4 H, MPV 8.0, Gran % 38.1 L, Lymphocytes % 49.9, Monocytes % 9.3, Eosinophils % 2.2, Basophils % 0.5, Absolute Granulocytes 1.9, Absolute Lymphocytes 2.4, Absolute Monocytes 0.5, Absolute Eosinophils 0.1, Absolute Basophils 0 Assessment/Plan Assessment: This is a 58-year-old male with past medical history of HIV on HAART, hepatitis C virus s/p Harvoni, CKD, neurogenic bladder and intermittent self-cath with BL Cr around 2.5, status post fusion surgery, left BKA for MRSA osteomyelitis initially placed in observation for left pubic ramus fracture and acute on chronic kidney injury who had a rapid response for myoclonic jerks 2/2 tetany from hypocalcemia due to severe metabolic derangements 2/2 renal failure due to obstructive uropathy. He was subsequently transferred to telemetry for further managemet of his ABDIRASHID on CKD. 1. Obstructive uropathy with acute on chronic kidney failure: His Cr is improving at 4.7 today, down from 5.1 and almost 8 on admission. * Appreciat uro recs * Appreciate nephro recs * Switched his IVF from LR to 1/2 NS but continued at 75cc/hr * Cont wiht robles; with good urine output * Con't EPO/sevalemer/Calcitriol 2. Stercoral colitis: Pt c/o pain due to hemorrhoids and constipation. * Bowel REG * Prep H 3. Right pubic ramus fracture: Conservative mgmt * Current pain regimen being mindful of his constipation 5. HIV: Last CD4 196; Undetectable viral load. [facility]. He currently has pancytopenia wiht WBC 4.6. * Con't Dolutegravir * Con't Abacavir * Monitor CBC * Given his low CD4 there is consdieration for PCP ppx. However given his renal function hesitant to start Bactrim. Will con't monitor off ppx at this time. Upon d/c will need to re-evaluate 6) Anemia: Hb 7.9 today. Likely 2/2 Renal failure and CKD. * Con't procrit 7) Hx Hep C s/p harvoni and Cirrhosis: * Avoid liver toxins 8) Anxiety: * Con't Xanax FC HHD ALPS Problem List: 1. HIV (human immunodeficiency virus infection) Pain Ratin Pain Location: none Pain Goal: Remain pain free Pain Plan: increase his Oxycontin Tomorrow's Labs & Rationales: cbc bep Juwan Foley 06/10/18 1340: Attending MD Review Statement Attending Statement Attending MD Statement: examined this patient, discuss w/resident/PA/IT SECURITY MANAGER, agreed w/resident/PA/IT SECURITY MANAGER, reviewed EMR data (avail), discussed with nursing Attending Assessment/Plan: Pt complain of pain not being controlled. Will increase the oxycontin to 30mg bid. dw pt the care plan. Cr is better to 4.7. Change fluids to 1/2 NS due to hyperchloremia.
[2018-06-10 15:11] VITALS: BP 100/58
[2018-06-11 06:47] VITALS: BP 110/68
[2018-06-11 07:58] LABS: ABSOLUTE BASOPHIL COUNT 0 /CUMM (0.0-0.2); ABSOLUTE EOSINOPHIL COUNT 0.2 /CUMM (0.0-0.7); ABSOLUTE GRANULOCYTE CT 1.6 /CUMM (1.4-6.5); ABSOLUTE LYMPH COUNT 2.4 /CUMM (1.2-3.4); ABSOLUTE MONOCYTE COUNT 0.4 /CUMM (0.10-0.60); BASOPHIL % 0.5 % (0.0-2.0); EOSINOPHIL % 3.4 % (0-5); GRANULOCYTE % 35.1 % (42.2-75.2); HEMATOCRIT 23.8 % (42-52); MEAN CORPUSCULAR HGB 32.5 PG (27.0-31.0); MEAN CORPUSCULAR VOLUME 95.5 FL (80.0-94.0); MEAN PLATELET VOLUME 7.9 FL (7.4-10.4); PLATELET COUNT 107 /CUMM (130-400); WHITE BLOOD CELL COUNT 4.5 /CUMM (4.8-10.8)
--- NOTE | 2018-06-11 08:07 | PN- Housestaff ---
Ernie DEL VALLE,Wendy 06/11/18 0806: Subjective Follow-up For: hiv abdirashid Subjective: Saw pt at bedside this AM. His only complaint is that his pelvic fracture pain continues to persist. No acute overnight events Review of Systems Constitutional: Denies: chills, fever, weakness. EENTM: Reports: no symptoms. Cardiovascular: Denies: chest pain. Gastrointestinal: Denies: abdominal pain, constipation, diarrhea. Genitourinary: Reports: no symptoms. Musculoskeletal: Reports: back pain, joint pain, muscle stiffness. Objective Last 24 Hrs of Vital Signs/I&O Vital Signs Date Time Temp Pulse Resp B/P B/P Pulse O2 O2 Flow FiO2 Mean Ox Delivery Rate 06/11 0647 97.8 69 20 110/68 94 Room Air 06/10 1511 98.2 84 20 100/58 93 Room Air Intake & Output 06/11 1600 06/11 0800 06/11 0000 Intake Total 700 450 Output Total 750 1400 2550 Balance -750 -700 -2100 Intake, IV 600 Intake, Oral 100 450 Number 2 1 Bowel Movements Output, Urine 750 1400 2550 Physical Exam General Appearance: Alert, Oriented X3, Cooperative, No Acute Distress Skin: wounds in bialt LE HEENT: Atraumatic, PERRLA Cardiovascular: Regular Rate, Normal S1, Normal S2 Lungs: expiratory wheeze present. Abdomen: Soft, No Tenderness Extremities: R. BKA Current Medications: Current Medications Sig/Puma Start time Last Medication Dose Route Stop Time Status Admin Abacavir Sulfate 300 MG DAILY 06/03 900 AC 06/11 PO 1009 Acetaminophen 650 MG Q6P PRN 06/02 2145 AC 06/04 PO 0914 Alprazolam 0.5 MG TID 06/06 1400 AC 06/11 PO 06/13 1359 0825 Calcitriol 0.25 MCG DAILY 06/06 1058 AC 06/11 PO 1009 [place] Butter/Shark 1 DEDRICK Q6-PRN PRN 06/07 0830 AC 06/10 Liver Oil TOP 1049 Docusate Sodium 100 MG DAILY NEEDED PRN 06/10 1045 AC PO Docusate Sodium 100 MG DAILY 06/03 900 AC 06/11 PO 1009 Dolutegravir Sodium 50 MG DAILY 06/03 900 AC 06/11 PO 1009 Epoetin Gianni 20,000 U Q168 06/05 1400 AC 06/05 SC 1423 Ergocalciferol 50,000 IU ONCE A WEEK 06/06 1000 AC 06/06 PO 1134 Folic Acid 1 MG DAILY 06/03 900 AC 06/11 PO 1010 Lactulose 20 GM DAILY 06/03 900 AC 06/11 PO 1009 Multivitamins 1 TAB DAILY 06/03 900 AC 06/11 Therapeutic PO 1010 Oxycodone HCl 30 MG Q12 06/10 2100 AC 06/11 PO 0825 Oxycodone/ 2 TAB Q4 HRS NEEDED PRN 06/04 1630 AC 06/11 Acetaminophen PO 1234 Polyethylene Glycol 17 GM DAILY 06/03 900 AC 06/11 PO 1009 Senna 187 MG AT BEDTIME PRN 06/10 1045 AC PO Senna 187 MG DAILY 06/03 900 AC 06/11 PO 1010 Sevelamer HCl 1,600 MG WM 06/03 1200 AC 06/11 PO 1234 Sodium Bicarbonate 1,300 MG BID 06/09 2100 AC 06/11 PO 1010 Sodium Chloride 1,000 ML Q13H 06/10 1015 AC 06/11 IV 0025 Thiamine HCl 100 MG DAILY 06/03 900 AC 06/11 PO 1010 Trazodone HCl 200 MG QPM PRN 06/02 2345 AC PO Vitamin A/Vitamin D 1 DEDRICK BID 06/03 2100 AC 06/11 TOP 1011 Last 24 Hrs of Lab/Attila Results Last 24 Hrs of Labs/Mics: Laboratory Tests 06/11/18 0645: Anion Gap 7, Estimated GFR 12 L, BUN/Creatinine Ratio 8.8, CBC w Diff NO MAN DIFF REQ, RBC 2.50 L, MCV 95.5 H, MCH 32.5 H, MCHC 34.0, RDW 18.0 H, MPV 7.9 , Gran % 35.1 L, Lymphocytes % 52.2 H, Monocytes % 8.8, Eosinophils % 3.4, Basophils % 0.5, Absolute Granulocytes 1.6, Absolute Lymphocytes 2.4, Absolute Monocytes 0.4, Absolute Eosinophils 0.2, Absolute Basophils 0 Assessment/Plan Assessment: This is a 58-year-old male with past medical history of HIV on HAART, hepatitis C virus s/p Harvoni, CKD, neurogenic bladder and intermittent self-cath with BL Cr around 2.5, status post fusion surgery, left BKA for MRSA osteomyelitis initially placed in observation for left pubic ramus fracture and acute on chronic kidney injury who had a rapid response for myoclonic jerks 2/2 tetany from hypocalcemia due to severe metabolic derangements 2/2 renal failure due to obstructive uropathy. He was subsequently transferred to telemetry for further managemet of his ABDIRASHID on CKD. 1. Obstructive uropathy with acute on chronic kidney failure: His Cr is 4.9 today * Appreciat uro recs * Appreciate nephro recs * Con't 1/2 NS but at 75cc/hr * Cont wiht robles; with good urine output. Pt usually straight caths TID at home. Upon anticipation of d.c will remove robles. * Con't EPO/sevalemer/Calcitriol 2. Stercoral colitis: Pt c/o pain due to hemorrhoids and constipation. * Bowel REG * Prep H 3. Right pubic ramus fracture: Conservative mgmt * Current pain regimen being mindful of his constipation 5. HIV: Last CD4 196; Undetectable viral load. He usually goes to [facility] for his care. He currently has pancytopenia. * Con't Dolutegravir * Con't Abacavir * Monitor CBC * Given his low CD4 there is consdieration for PCP ppx. However given his renal function hesitant to start Bactrim. Will con't monitor off ppx at this time. Upon d/c will need to re-evaluate 6) Anemia: stable. Likely 2/2 Renal failure and CKD. * Con't procrit 7) Hx Hep C s/p harvoni and Cirrhosis: * Avoid liver toxins 8) Anxiety: * Con't Xanax FC HHD ALPS Problem List: 1. HIV (human immunodeficiency virus infection) Pain Ratin Pain Location: NONE Pain Goal: Remain pain free Pain Plan: CURRENT REG Tomorrow's Labs & Rationales: CBC BEP Mae Rudolph MD 06/11/18 1136: Attending MD Review Statement Attending Statement Attending MD Statement: examined this patient, discuss w/resident/PA/CATALYST UNIT OPERATOR, agreed w/resident/PA/CATALYST UNIT OPERATOR, reviewed EMR data (avail), discussed with nursing, discussed with case mgmt, reviewed images, amended to note Attending Assessment/Plan: Patient seen and examined, states that he is feeling tired. He is complaining that he is not getting enough pain medications. His creatinine is slightly up today from yesterday. Vital Signs Date Time Temp Pulse Resp B/P B/P Pulse O2 O2 Flow FiO2 Mean Ox Delivery Rate 06/11 0647 97.8 69 20 110/68 94 Room Air 06/10 1511 98.2 84 20 100/58 93 Room Air on exam; aox3, nad. cv; s1, s2, rrr resp; clear abd; soft, nt, bs+ ext; no edema Laboratory Tests 06/11 645 Chemistry Sodium (137 - 145 mmol/L) 138 Potassium (3.5 - 5.1 mmol/L) 4.4 Chloride (98 - 107 mmol/L) 113 H Carbon Dioxide (22 - 30 mmol/L) 18 L Anion Gap (5 - 16) 7 BUN (9 - 20 mg/dL) 43 H Creatinine (0.7 - 1.2 mg/dL) 4.9 H Estimated GFR (>60 ml/min) 12 L BUN/Creatinine Ratio (7 - 25 %) 8.8 Hematology CBC w Diff NO MAN DIFF REQ WBC (4.8 - 10.8 /CUMM) 4.5 L RBC (4.70 - 6.10 /CUMM) 2.50 L Hgb (14.0 - 18.0 G/DL) 8.1 L Hct (42 - 52 %) 23.8 L MCV (80.0 - 94.0 FL) 95.5 H MCH (27.0 - 31.0 PG) 32.5 H MCHC (33.0 - 37.0 G/DL) 34.0 RDW (11.5 - 14.5 %) 18.0 H Plt Count (130 - 400 /CUMM) 107 L MPV (7.4 - 10.4 FL) 7.9 Gran % (42.2 - 75.2 %) 35.1 L Lymphocytes % (20.5 - 51.1 %) 52.2 H Monocytes % (1.7 - 9.3 %) 8.8 Eosinophils % (0 - 5 %) 3.4 Basophils % (0.0 - 2.0 %) 0.5 Absolute Granulocytes (1.4 - 6.5 /CUMM) 1.6 Absolute Lymphocytes (1.2 - 3.4 /CUMM) 2.4 Absolute Monocytes (0.10 - 0.60 /CUMM) 0.4 Absolute Eosinophils (0.0 - 0.7 /CUMM) 0.2 Absolute Basophils (0.0 - 0.2 /CUMM) 0 A/P: 58 y/o M with pmh sig for HIV on HAART, HCV s/p Harvoni, CKD stage 4, anxiety, ch anemia likely 2/2 to HIV and CKD and asthma, recnent fall is admitted with acute right groin pain and found to have Subtle nondisplaced fracture along the right superior pubic ramus which extends into the acetabulum addition to a minimally displaced fracture of the right inferior pubic ramus. There is no fracture of the right femur identified on CT pelvis. Pt seen by ortho and conservative Mx was recommended with PT. Patient also has acute on chronic kidney disease. Patient developed twiching movements and was tx to ICU with question of new seizure which later turned out to be some kind of clonus 2/ 2 to metabolic derrangements as evaluated by Neuro. Patient then. transferred back to telemetry. No acute events on telemetry. Please discuss with nephrology about disposition planning in terms of patient slightly worse creatinine today. If plan for discharge then will discontinue the Robles catheter and patient can resume back to his straight cath. Urology wants to observe for now and if creatinine does not improve in the future then they want to do a ureteral stent for this right hydronephrosis. Will increase the pain medication to his home dose. Patient to follow-up with Dr. Radha Morocho as an outpatient for his HIV. Please discontinue telemetry. Continue other current medications. Patient on mechanical DVT prophylaxis secondary to thrombocytopenia. He needs rehab for discharge.
--- NOTE | 2018-06-11 12:41 | Patient Discharge Instructions ---
Discharge Instructions General Discharge Information You were seen/treated for: Acute renal failure You had these procedures: 1. daily monitoring of Cr. Watch for these problems: 1. fever, headache, nausea, vomiting, shortness of breath or chest pain Special Instructions: 1. Please follow up with senior publications specialist within one week 2. Please follow up with the [facility] regarding your HIV management 3. Please follow up with your PCP in one week Diet Recommended Diet: Heart Healthy Activity Activity Self Limited: Yes Acute Coronary Syndrome Inclusion Criteria At DC or during hospital stay patient has or had the following: ACS DIAGNOSIS No Discharge Core Measures Meds if any: Prescribed or Continued at Discharge Meds if any: NOT Prescribed or Continued at Discharge Congestive Heart Failure Inclusion Criteria At DC or during hospital stay patient has or had the following: CHF DIAGNOSIS No Discharge Core Measures Meds if any: Prescribed or Continued at Discharge Meds if any: NOT Prescribed or Continued at Discharge Cerebrovascular accident Inclusion Criteria At DC or during hospital stay patient has or had the following: CVA/TIA Diagnosis No Discharge Core Measures Meds if any: Prescribed or Continued at Discharge Meds if any: NOT Prescribed or Continued at Discharge Venous thromboembolism Inclusion Criteria VTE Diagnosis No VTE Type NONE VTE Confirmed by (Test) NONE Discharge Core Measures - Per Current guidelines, there needs to be overlap - treatment for the first 5 days of Warfarin therapy. - If discharged on Warfarin prior to 5 days of - overlap therapy, the patient will need to be - assessed for post discharge needs including - *Post discharge parental anticoagulation - *Warfarin and/or parental anticoagulation education - *Follow up date to check INR post discharge At least 5 days overlap therapy as Inpatient No Meds if any: Prescribed or Continued at Discharge Note: Overlap Therapy is Warfarin and Anticoagulant Meds if any: NOT Prescribed or Continued at Discharge
[2018-06-11] MEDS ORDERED: SODIUM BICARBO325 M1 PO (13:21)
[2018-06-11 15:20] VITALS: BP 110/64
--- NOTE | 2018-06-11 18:00 | PN- Nephrology ---
Assessment/Plan Nephrology Assessment: 1. 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 ABDIRASHID -improved but creatinine has now plateaued just under 5.0; fluid balance has recently been negative. 3. Hypotension -much improved 4. Neuromuscular irritability resolved 5. Metabolic acidosis -now on po sodium bicarbonate 6. Hyperphosphatemia -improved on sevelamer 7. Profound hypocalcemia -asymptomatic and much improved on Vit D, calcitriol and calcium 8. Pancytopenia including severe anemia 9. Pelvic fractures as noted Suggestion: 1. Trial of IV normal saline at 100 cc/h for 24-48 hours 2. If renal function fails to improve any further despite IV fluids, would strongly consider cystoscopy with stenting on the right; will discuss with Urology. His recent baseline serum creatinine was 4.2 on 05/27. 3. Will ask vascular surgery to see in order to plan for a permanent vascular access in anticipation of dialysis need within the next few months. Subjective Subjective: Patient remains somewhat anxious over his overall medical status. Analgesia is his chief concern. He also would prefer keeping the Mcgregor in place rather than having to undergo regular catheterizations as he was doing prior to this admission. Creatinine seems to have plateaued at 4.9 but he has been in negative fluid balance over the last several days. Objective Vital Signs and I&Os Vital Signs Date Time Temp Pulse Resp B/P B/P Pulse O2 O2 Flow FiO2 Mean Ox Delivery Rate 06/11 1520 97.6 78 20 110/64 95 Room Air 06/11 0647 97.8 69 20 110/68 94 Room Air Intake & Output 06/11 1600 06/11 0400 06/10 1600 06/10 0400 06/09 0400 Intake Total 5685 200 1769 200 2270 250 Output Total 2150 2550 1750 1800 3000 3000 Balance -280 -2100 470 -1600 -730 -2750 Intake, IV 1050 7745 268 5858 150 Intake, Oral 159 500 0822 50 870 100 Number 2 1 2 1 3 Bowel Movements Output, Urine 2150 2550 1750 1800 3000 3000 Patient 213 lb 197 lb 197 lb Weight Weight Bed scale Measurement Method Physical Exam: General: Well-developed chronically ill-appearing white male in NAD Skin: No jaundice, multiple ecchymoses HEENT: Conjunctivae pale, sclerae anicteric, left corneal haziness, mucous membranes dry Neck: Without masses or thyromegaly, no supraclavicular or cervical adenopathy, +JVD Chest: Clear anterolaterally Heart: Regular rate and rhythm without S3 or rub Abdomen: Soft and nontender without palpable masses or organomegaly Extremities: Left BKA, no significant edema Neuro: Awake and alert, no focal findings, no asterixis or myoclonus Results Pertinent Lab Results: Laboratory Tests 06/11 06/10 0645 0617 Chemistry Sodium (137 - 145 mmol/L) 138 141 Potassium (3.5 - 5.1 mmol/L) 4.4 4.3 Chloride (98 - 107 mmol/L) 113 H 116 H Carbon Dioxide (22 - 30 mmol/L) 18 L 19 L Anion Gap (5 - 16) 7 6 BUN (9 - 20 mg/dL) 43 H 46 H Creatinine (0.7 - 1.2 mg/dL) 4.9 H 4.7 H Estimated GFR (>60 ml/min) 12 L 13 L BUN/Creatinine Ratio (7 - 25 %) 8.8 9.8 Calcium (8.4 - 10.2 mg/dL) 7.4 L Magnesium (1.6 - 2.3 mg/dL) 2.0 Albumin (3.5 - 5.0 g/dL) 2.3 L Hematology CBC w Diff NO MAN DIFF REQ NO MAN DIFF REQ WBC (4.8 - 10.8 /CUMM) 4.5 L 4.9 RBC (4.70 - 6.10 /CUMM) 2.50 L 2.35 L Hgb (14.0 - 18.0 G/DL) 8.1 L 7.9 L Hct (42 - 52 %) 23.8 L 22.7 L MCV (80.0 - 94.0 FL) 95.5 H 96.4 H MCH (27.0 - 31.0 PG) 32.5 H 33.6 H MCHC (33.0 - 37.0 G/DL) 34.0 34.9 RDW (11.5 - 14.5 %) 18.0 H 17.4 H Plt Count (130 - 400 /CUMM) 107 L 101 L MPV (7.4 - 10.4 FL) 7.9 8.0 Gran % (42.2 - 75.2 %) 35.1 L 38.1 L Lymphocytes % (20.5 - 51.1 %) 52.2 H 49.9 Monocytes % (1.7 - 9.3 %) 8.8 9.3 Eosinophils % (0 - 5 %) 3.4 2.2 Basophils % (0.0 - 2.0 %) 0.5 0.5 Absolute Granulocytes (1.4 - 6.5 /CUMM) 1.6 1.9 Absolute Lymphocytes (1.2 - 3.4 /CUMM) 2.4 2.4 Absolute Monocytes (0.10 - 0.60 /CUMM) 0.4 0.5 Absolute Eosinophils (0.0 - 0.7 /CUMM) 0.2 0.1 Absolute Basophils (0.0 - 0.2 /CUMM) 0 0 09/11 0626 Chemistry Sodium (137 - 145 mmol/L) 143 Potassium (3.5 - 5.1 mmol/L) 4.0 Chloride (98 - 107 mmol/L) 117 H Carbon Dioxide (22 - 30 mmol/L) 18 L Anion Gap (5 - 16) 8 BUN (9 - 20 mg/dL) 46 H Creatinine (0.7 - 1.2 mg/dL) 5.1 *H Estimated GFR (>60 ml/min) 12 L BUN/Creatinine Ratio (7 - 25 %) 9.0 Calcium (8.4 - 10.2 mg/dL) 7.7 L Magnesium (1.6 - 2.3 mg/dL) 2.0 Alkaline Phosphatase (< 127 U/L) 79 Hematology CBC w Diff NO MAN DIFF REQ WBC (4.8 - 10.8 /CUMM) 4.6 L RBC (4.70 - 6.10 /CUMM) 2.41 L Hgb (14.0 - 18.0 G/DL) 8.1 L Hct (42 - 52 %) 23.1 L MCV (80.0 - 94.0 FL) 95.9 H MCH (27.0 - 31.0 PG) 33.5 H MCHC (33.0 - 37.0 G/DL) 34.9 RDW (11.5 - 14.5 %) 16.8 H Plt Count (130 - 400 /CUMM) 94 L MPV (7.4 - 10.4 FL) 8.3 Gran % (42.2 - 75.2 %) 43.5 Lymphocytes % (20.5 - 51.1 %) 43.4 Monocytes % (1.7 - 9.3 %) 9.6 H Eosinophils % (0 - 5 %) 3.0 Basophils % (0.0 - 2.0 %) 0.5 Absolute Granulocytes (1.4 - 6.5 /CUMM) 2.0 Absolute Lymphocytes (1.2 - 3.4 /CUMM) 2.0 Absolute Monocytes (0.10 - 0.60 /CUMM) 0.4 Absolute Eosinophils (0.0 - 0.7 /CUMM) 0.1 Absolute Basophils (0.0 - 0.2 /CUMM) 0
[2018-06-12 07:17] VITALS: BP 102/58
[2018-06-12 07:45] LABS: ABSOLUTE BASOPHIL COUNT 0 /CUMM (0.0-0.2); ABSOLUTE EOSINOPHIL COUNT 0.1 /CUMM (0.0-0.7); ABSOLUTE GRANULOCYTE CT 1.9 /CUMM (1.4-6.5); ABSOLUTE LYMPH COUNT 2.8 /CUMM (1.2-3.4); ABSOLUTE MONOCYTE COUNT 0.5 /CUMM (0.10-0.60); BASOPHIL % 0.4 % (0.0-2.0); EOSINOPHIL % 2.7 % (0-5); HEMATOCRIT 24.3 % (42-52); MEAN CORPUSCULAR HGB 33.1 PG (27.0-31.0); MEAN CORPUSCULAR HGB CONC 34.8 G/DL (33.0-37.0); MEAN CORPUSCULAR VOLUME 95.3 FL (80.0-94.0); PLATELET COUNT 116 /CUMM (130-400); RBC DISTRIBUTION WIDTH 17.9 % (11.5-14.5); RED BLOOD CELL CT 2.55 /CUMM (4.70-6.10); WHITE BLOOD CELL COUNT 5.3 /CUMM (4.8-10.8)
--- NOTE | 2018-06-12 08:01 | PN- Housestaff ---
Ernie DEL VALLE,Wendy 06/12/18 0801: Subjective Follow-up For: ABDIRASHID Subjective: Saw pt at bedside this AM. He stated his pain was not under control and wanted to go back to his home regimen. He also c/o constipation and hemorrhoidal pain. Review of Systems Constitutional: Denies: chills, malaise. Cardiovascular: Reports: no symptoms. Respiratory: Reports: no symptoms. Gastrointestinal: Reports: no symptoms. Genitourinary: Reports: no symptoms. Musculoskeletal: Reports: back pain, joint pain, muscle pain. Objective Last 24 Hrs of Vital Signs/I&O Vital Signs Date Time Temp Pulse Resp B/P B/P Pulse O2 O2 Flow FiO2 Mean Ox Delivery Rate 06/12 0717 98.0 76 20 102/58 97 Room Air 06/11 1520 97.6 78 20 110/64 95 Room Air Intake & Output 06/12 1600 06/12 0800 06/12 0000 Intake Total 880 750 Output Total 1375 Balance 880 -625 Intake, IV 700 110 Intake, Oral 180 640 Number 1 Bowel Movements Output, Urine 1375 Patient 89.131 kg Weight Weight Bed scale Measurement Method Physical Exam General Appearance: Alert, Oriented X3, Cooperative, No Acute Distress HEENT: Atraumatic, PERRLA Cardiovascular: Regular Rate, Normal S1, Normal S2 Lungs: Normal Air Movement Abdomen: Soft, No Tenderness Extremities: open worunds and right BKA. Last 24 Hrs of Lab/Attila Results Last 24 Hrs of Labs/Mics: Laboratory Tests 06/12/18 0615: Sodium Pending, Potassium Pending, Chloride Pending, Carbon Dioxide Pending, Anion Gap Pending, BUN Pending, Creatinine Pending, BUN/Creatinine Ratio Pending , CBC w Diff NO MAN DIFF REQ, RBC 2.55 L, MCV 95.3 H, MCH 33.1 H, MCHC 34.8, RDW 17.9 H, MPV 8.0, Gran % 35.0 L, Lymphocytes % 53.4 H, Monocytes % 8.5, Eosinophils % 2.7, Basophils % 0.4, Absolute Granulocytes 1.9, Absolute Lymphocytes 2.8, Absolute Monocytes 0.5, Absolute Eosinophils 0.1, Absolute Basophils 0 Assessment/Plan Assessment: This is a 58-year-old male with past medical history of HIV on HAART, hepatitis C virus s/p Harvoni, CKD, neurogenic bladder and intermittent self-cath with BL Cr around 2.5, status post fusion surgery, left BKA for MRSA osteomyelitis initially placed in observation for left pubic ramus fracture and acute on chronic kidney injury who had a rapid response for myoclonic jerks 2/2 tetany from hypocalcemia due to severe metabolic derangements 2/2 renal failure due to obstructive uropathy. He was subsequently transferred to telemetry for further managemet of his ABDIRASHID on CKD. PLAN: 1. Obstructive uropathy with acute on chronic kidney failure: His Cr is worse today. From 4.9 he went to 5.3 Will call urology for re-eval of cysto + stent placement. * Appreciate uro recs * Appreciate nephro recs * Switched to [id number] per hour * Mcgregor removed yesterday. straight cathing at this time * Con't EPO/sevalemer/Calcitriol * Per nephro pt will undergo vascular evaluation for dialysis fistula placemet. 2. Stercoral colitis: Pt c/o pain due to hemorrhoids and constipation. * Bowel REG * Prep H 3. Right pubic ramus fracture: Conservative mgmt * Current pain regimen being mindful of his constipation 5. HIV: Last CD4 196; Undetectable viral load. He usually goes to [facility] for his care. He currently has pancytopenia. * Con't Dolutegravir * Con't Abacavir * Monitor CBC * Given his low CD4 there is consdieration for PCP ppx. However given his renal function hesitant to start Bactrim. Will con't monitor off ppx at this time. Upon d/c will need to re-evaluate 6) Anemia: stable. Likely 2/2 Renal failure and CKD. * Con't procrit 7) Hx Hep C s/p harvoni and Cirrhosis: * Avoid liver toxins 8) Anxiety: * Con't Xanax FC HHD ALPS Problem List: 1. Acute renal failure 2. HIV (human immunodeficiency virus infection) Pain Ratin Pain Location: none Pain Goal: Remain pain free Pain Plan: current reg Tomorrow's Labs & Rationales: cbc bep Mae Rudolph MD 06/12/18 1024: Attending MD Review Statement Attending Statement Attending MD Statement: examined this patient, discuss w/resident/PA/SHAKE SPLITTER, agreed w/resident/PA/SHAKE SPLITTER, reviewed EMR data (avail), discussed with nursing, discussed with case mgmt, reviewed images, amended to note Attending Assessment/Plan: Patient seen and examined, feels slightly better today in terms of his pain. Kidney function is worse today at 5.3. We discontinued his Mcgregor catheter yesterday and patient is incontinent of urine. Vital Signs Date Time Temp Pulse Resp B/P B/P Pulse O2 O2 Flow FiO2 Mean Ox Delivery Rate 06/12 1002 Room Air 06/12 0717 98.0 76 20 102/58 97 Room Air 06/11 1520 97.6 78 20 110/64 95 Room Air on exam; aox3, nad. cv; s1,s2, rrr resp; clear abd; soft, nt, bs+ ext: no edema, left BKA. Laboratory Tests 06/12 615 Chemistry Sodium (137 - 145 mmol/L) 138 Potassium (3.5 - 5.1 mmol/L) 4.9 Chloride (98 - 107 mmol/L) 113 H Carbon Dioxide (22 - 30 mmol/L) 18 L Anion Gap (5 - 16) 7 BUN (9 - 20 mg/dL) 45 H Creatinine (0.7 - 1.2 mg/dL) 5.3 *H Estimated GFR (>60 ml/min) 11 L BUN/Creatinine Ratio (7 - 25 %) 8.5 Hematology CBC w Diff NO MAN DIFF REQ WBC (4.8 - 10.8 /CUMM) 5.3 RBC (4.70 - 6.10 /CUMM) 2.55 L Hgb (14.0 - 18.0 G/DL) 8.4 L Hct (42 - 52 %) 24.3 L MCV (80.0 - 94.0 FL) 95.3 H MCH (27.0 - 31.0 PG) 33.1 H MCHC (33.0 - 37.0 G/DL) 34.8 RDW (11.5 - 14.5 %) 17.9 H Plt Count (130 - 400 /CUMM) 116 L MPV (7.4 - 10.4 FL) 8.0 Gran % (42.2 - 75.2 %) 35.0 L Lymphocytes % (20.5 - 51.1 %) 53.4 H Monocytes % (1.7 - 9.3 %) 8.5 Eosinophils % (0 - 5 %) 2.7 Basophils % (0.0 - 2.0 %) 0.4 Absolute Granulocytes (1.4 - 6.5 /CUMM) 1.9 Absolute Lymphocytes (1.2 - 3.4 /CUMM) 2.8 Absolute Monocytes (0.10 - 0.60 /CUMM) 0.5 Absolute Eosinophils (0.0 - 0.7 /CUMM) 0.1 Absolute Basophils (0.0 - 0.2 /CUMM) 0 A/P; 58 y/o M with pmh sig for HIV on HAART, HCV s/p Harvoni, CKD stage 4, anxiety, ch anemia likely 2/2 to HIV and CKD and asthma, recnent fall is admitted with acute right groin pain and found to have Subtle nondisplaced fracture along the right superior pubic ramus which extends into the acetabulum addition to a minimally displaced fracture of the right inferior pubic ramus. There is no fracture of the right femur identified on CT pelvis. Pt seen by ortho and conservative Mx was recommended with PT. Patient also has acute on chronic kidney disease. Patient developed twiching movements and was tx to ICU with question of new seizure which later turned out to be some kind of clonus 2/ 2 to metabolic derrangements as evaluated by Neuro. Patient then. transferred back to telemetry. Tele was discontinued yesaterday. We discontinued his Mcgregor catheter yesterday and patient was incontinent of urine. There is no recording of output. Creatinine is worse today. Will discuss with nephrology and urology. Patient has been continued on IV fluids. He is not medically stable for discharge yet. Patient needs every shift straight cath and a bladder scan. This was communicated to patient's nurse. Pain is slightly better controlled with patient's home regimen. For now patient will be getting straight cath but will discuss with urology if patient would need to have a chronic Mcgregor or not. We will continue to avoid any nephrotoxic medications. Continue the rest of the medications. Patient on mechanical DVT prophylaxis secondary to thrombocytopenia. Platelets are slowly improving.
[2018-06-12 14:09] VITALS: BP 120/70
--- NOTE | 2018-06-12 15:55 | PN- Nephrology ---
Assessment/Plan Nephrology Assessment: 1. 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 ABDIRASHID -improved but creatinine has now plateaued just under 5.0; fluid balance had recently been negative but he is now receiving over 2 L of normal saline daily with no further improvement in renal functionin fact creatinine up slightly today. 3. Hypotension -much improved 4. Neuromuscular irritability resolved 5. Metabolic acidosis -now on po sodium bicarbonate 6. Hyperphosphatemia -improved on sevelamer 7. Profound hypocalcemia -asymptomatic and much improved on Vit D, calcitriol and calcium 8. Pancytopenia including severe anemia 9. Pelvic fractures as noted Suggestion: 1. Would ask urology to see again regarding proceeding with cystoscopy and stenting of right ureter 2. I have taken the liberty of asking vascular surgery to see patient in order to initiate planning for a vascular access for hemodialysis 3. Continue IV fluids for now 4. Please repeat chest x-ray to assess for pulmonary vascular congestion/CHF Subjective Subjective: Patient continues to require analgesia for his pelvic pain. He understands that he may require cystoscopy with stent placement. Renal function is slightly worse today despite IV fluids. He is no longer leukopenic. Hemoglobin and platelet count appear to be stable. Objective Vital Signs and I&Os Vital Signs Date Time Temp Pulse Resp B/P B/P Pulse O2 O2 Flow FiO2 Mean Ox Delivery Rate 06/12 1409 98.1 87 18 120/70 95 Room Air 06/12 1002 Room Air 06/12 0717 98.0 76 20 102/58 97 Room Air Intake & Output 06/12 1600 06/12 0400 06/11 0400 06/10 1600 06/10 0400 Intake Total 2220 750 5516 259 3748 200 Output Total 1375 2150 2550 1750 1800 Balance 2220 -625 -280 -2100 470 -1600 Intake, IV 2222 606 6832 1200 150 Intake, Oral 820 640 694 088 3721 50 Number 4 1 2 1 2 Bowel Movements Output, Urine 1375 2150 2550 1750 1800 Patient 197 lb 213 lb 197 lb Weight Weight Bed scale Measurement Method Physical Exam: General: Well-developed chronically ill-appearing white male in NAD Skin: No jaundice, multiple ecchymoses HEENT: Conjunctivae pale, sclerae anicteric, left corneal haziness, mucous membranes moist Neck: Without masses or thyromegaly, no supraclavicular or cervical adenopathy, +JVD Chest: Scattered wheezes bilaterally Heart: Regular rate and rhythm without S3 or rub Abdomen: Soft and nontender without palpable masses or organomegaly Extremities: Left BKA, no significant edema Neuro: Awake and alert, no focal findings, no asterixis or myoclonus Results Pertinent Lab Results: Laboratory Tests 06/12 06/11 0615 0645 Chemistry Sodium (137 - 145 mmol/L) 138 138 Potassium (3.5 - 5.1 mmol/L) 4.9 4.4 Chloride (98 - 107 mmol/L) 113 H 113 H Carbon Dioxide (22 - 30 mmol/L) 18 L 18 L Anion Gap (5 - 16) 7 7 BUN (9 - 20 mg/dL) 45 H 43 H Creatinine (0.7 - 1.2 mg/dL) 5.3 *H 4.9 H Estimated GFR (>60 ml/min) 11 L 12 L BUN/Creatinine Ratio (7 - 25 %) 8.5 8.8 Hematology CBC w Diff NO MAN DIFF REQ NO MAN DIFF REQ WBC (4.8 - 10.8 /CUMM) 5.3 4.5 L RBC (4.70 - 6.10 /CUMM) 2.55 L 2.50 L Hgb (14.0 - 18.0 G/DL) 8.4 L 8.1 L Hct (42 - 52 %) 24.3 L 23.8 L MCV (80.0 - 94.0 FL) 95.3 H 95.5 H MCH (27.0 - 31.0 PG) 33.1 H 32.5 H MCHC (33.0 - 37.0 G/DL) 34.8 34.0 RDW (11.5 - 14.5 %) 17.9 H 18.0 H Plt Count (130 - 400 /CUMM) 116 L 107 L MPV (7.4 - 10.4 FL) 8.0 7.9 Gran % (42.2 - 75.2 %) 35.0 L 35.1 L Lymphocytes % (20.5 - 51.1 %) 53.4 H 52.2 H Monocytes % (1.7 - 9.3 %) 8.5 8.8 Eosinophils % (0 - 5 %) 2.7 3.4 Basophils % (0.0 - 2.0 %) 0.4 0.5 Absolute Granulocytes (1.4 - 6.5 /CUMM) 1.9 1.6 Absolute Lymphocytes (1.2 - 3.4 /CUMM) 2.8 2.4 Absolute Monocytes (0.10 - 0.60 /CUMM) 0.5 0.4 Absolute Eosinophils (0.0 - 0.7 /CUMM) 0.1 0.2 Absolute Basophils (0.0 - 0.2 /CUMM) 0 0 06/10 0617 Chemistry Sodium (137 - 145 mmol/L) 141 Potassium (3.5 - 5.1 mmol/L) 4.3 Chloride (98 - 107 mmol/L) 116 H Carbon Dioxide (22 - 30 mmol/L) 19 L Anion Gap (5 - 16) 6 BUN (9 - 20 mg/dL) 46 H Creatinine (0.7 - 1.2 mg/dL) 4.7 H Estimated GFR (>60 ml/min) 13 L BUN/Creatinine Ratio (7 - 25 %) 9.8 Calcium (8.4 - 10.2 mg/dL) 7.4 L Magnesium (1.6 - 2.3 mg/dL) 2.0 Albumin (3.5 - 5.0 g/dL) 2.3 L Hematology CBC w Diff NO MAN DIFF REQ WBC (4.8 - 10.8 /CUMM) 4.9 RBC (4.70 - 6.10 /CUMM) 2.35 L Hgb (14.0 - 18.0 G/DL) 7.9 L Hct (42 - 52 %) 22.7 L MCV (80.0 - 94.0 FL) 96.4 H MCH (27.0 - 31.0 PG) 33.6 H MCHC (33.0 - 37.0 G/DL) 34.9 RDW (11.5 - 14.5 %) 17.4 H Plt Count (130 - 400 /CUMM) 101 L MPV (7.4 - 10.4 FL) 8.0 Gran % (42.2 - 75.2 %) 38.1 L Lymphocytes % (20.5 - 51.1 %) 49.9 Monocytes % (1.7 - 9.3 %) 9.3 Eosinophils % (0 - 5 %) 2.2 Basophils % (0.0 - 2.0 %) 0.5 Absolute Granulocytes (1.4 - 6.5 /CUMM) 1.9 Absolute Lymphocytes (1.2 - 3.4 /CUMM) 2.4 Absolute Monocytes (0.10 - 0.60 /CUMM) 0.5 Absolute Eosinophils (0.0 - 0.7 /CUMM) 0.1 Absolute Basophils (0.0 - 0.2 /CUMM) 0
[2018-06-12 22:30] VITALS: BP 98/54
[2018-06-13 07:13] VITALS: BP 116/68
[2018-06-13 08:15] LABS: ABSOLUTE BASOPHIL COUNT 0 /CUMM (0.0-0.2); ABSOLUTE EOSINOPHIL COUNT 0.1 /CUMM (0.0-0.7); ABSOLUTE GRANULOCYTE CT 1.6 /CUMM (1.4-6.5); ABSOLUTE LYMPH COUNT 2.9 /CUMM (1.2-3.4); ABSOLUTE MONOCYTE COUNT 0.4 /CUMM (0.10-0.60); BASOPHIL % 0.4 % (0.0-2.0); EOSINOPHIL % 2.9 % (0-5); GRANULOCYTE % 31.7 % (42.2-75.2); HEMATOCRIT 24.6 % (42-52); MEAN CORPUSCULAR HGB 33.5 PG (27.0-31.0); MEAN CORPUSCULAR HGB CONC 34.9 G/DL (33.0-37.0); MEAN CORPUSCULAR VOLUME 96.1 FL (80.0-94.0); MEAN PLATELET VOLUME 7.9 FL (7.4-10.4); PLATELET COUNT 127 /CUMM (130-400); RBC DISTRIBUTION WIDTH 18.1 % (11.5-14.5); RED BLOOD CELL CT 2.56 /CUMM (4.70-6.10)
--- NOTE | 2018-06-13 08:37 | PN- Housestaff ---
[place] 06/13/18 0837: Subjective Follow-up For: ABDIRASHID on CKD Tele-Events Since Last Visit: off tele Subjective: No overnight events. Patient remained afebrile. Seen and examined this morning. He denies chest pain, palpitation, nausea, vomiting, chill, fever, abdominal pain dysuria. Review of Systems Constitutional: Denies: chills, fever. EENTM: Reports: see HPI. Cardiovascular: Denies: chest pain, palpitations. Respiratory: Denies: cough, short of breath, sputum production. Gastrointestinal: Denies: abdominal pain, constipation, diarrhea, nausea, vomiting. Genitourinary: Reports: no symptoms. Musculoskeletal: Reports: see HPI. Neurological/Psychological: Reports: no symptoms. Objective Last 24 Hrs of Vital Signs/I&O Vital Signs Date Time Temp Pulse Resp B/P B/P Pulse O2 O2 Flow FiO2 Mean Ox Delivery Rate 06/13 0713 97.9 74 18 116/68 95 Room Air 06/12 2230 98.4 78 18 98/54 96 Room Air 06/12 1600 Room Air 06/12 1409 98.1 87 18 120/70 95 Room Air Intake & Output 06/13 1600 06/13 0800 06/13 0000 Intake Total Output Total 600 Balance -600 Output, Urine 600 Patient 190 lb Weight Weight Bed scale Measurement Method Physical Exam General Appearance: Alert, Oriented X3, Cooperative Skin Temp/Moisture Exam: Warm/Dry Sepsis Skin Exam (color): Normal for Ethnicity HEENT: Atraumatic, PERRLA, EOMI Neck: Supple Cardiovascular: Normal S1, Normal S2 Lungs: Clear to Auscultation Abdomen: Soft, No Tenderness Neurological: Normal Speech, Strength at 5/5 X4 Ext, Normal Tone Extremities: Right BKA, Open wound Assessment/Plan Assessment: This is a 58-year-old male with past medical history of HIV on HAART, hepatitis C virus s/p Harvoni, CKD, neurogenic bladder and intermittent self-cath with BL Cr around 2.5, status post fusion surgery, left BKA for MRSA osteomyelitis initially placed in observation for left pubic ramus fracture and acute on chronic kidney injury who had a rapid response for myoclonic jerks 2/2 tetany from hypocalcemia due to severe metabolic derangements 2/2 renal failure due to obstructive uropathy. He was subsequently transferred to telemetry for further managemet of his ABDIRASHID on CKD. Seeing the patient for following problems. Obstructive uropathy with acute on chronic kidney failure: -Patient has stage V CKD. -Today his creatinine is 5.0 and GFR is 12 -Urology recommended repeat renal ultrasound to look for right ureteral hydronephrosis if it remain same then possible stent placement next week. -His IV fluid has been discontinued we will check his chest x-ray for fluid overload. -Appreciate nephro recs -Continue bicarbonate 1300 mg twice daily -Mcgregor is removed and patient is on straight cath protocol. -Con't EPO/sevalemer/Calcitriol -Per nephro pt will undergo vascular evaluation for dialysis fistula placemet. Stercoral colitis: -Pt c/o pain due to hemorrhoids and constipation. -Bowel REG -Prep H Right pubic ramus fracture: -Conservative mgmt -Current pain regimen being mindful of his constipation HIV: -Last CD4 196; Undetectable viral load. He usually goes to [facility] for his care. He currently has pancytopenia. -Con't Dolutegravir -Con't Abacavir -Monitor CBC -Given his low CD4 there is consdieration for PCP ppx. However given his renal function hesitant to start Bactrim. Will con't monitor off ppx at this time. Upon d/c will need to re-evaluate Anemia: -stable. Likely 2/2 Renal failure and CKD. -Con't procrit Hx Hep C s/p harvoni and Cirrhosis: -Avoid liver toxins Anxiety: -Con't Xanax CODE STATUS; Full code DVT prophylaxis; Mechanical only Problem List: 1. [id number] kidney injury Pain Ratin Pain Location: none Pain Goal: Remain pain free Pain Plan: pain pathway Tomorrow's Labs & Rationales: cbc/bep Lori Hamilton MD 06/13/18 0852: Attending MD Review Statement Attending Statement Attending MD Statement: examined this patient, discuss w/resident/PA/CASINO ATTENDANT, agreed w/resident/PA/CASINO ATTENDANT, reviewed EMR data (avail), discussed with nursing, reviewed images Attending Assessment/Plan: 58-year-old male multiple medical problems including HIV on HAART, hep C status post treatment, CKD fairly advanced stage V due to obstructive uropathy and glomerulonephritis. At this point the main issue is the creatinine. He peaked at 5.3 yesterday and he is down to 5 today. He was started on fluid overnight but I am worried about fluid overload. I stopped the fluid and will follow up a chest x-ray. Will need to follow-up per nephrology and urology whether any intervention needs to be done for the obstructive uropathy.
[2018-06-13 09:52] LABS: WHITE BLOOD CELL COUNT 5.1 /CUMM (4.8-10.8)
--- NOTE | 2018-06-13 10:25 | PN- Urology ---
Surgical Brief Attending Note Brief Attending Note: Recent labs reviewed. Creatinine today is 5.0 with baseline in mid 4's. Some imaging studies show R hydro and others do not. Plan: 1. Would repeat renal ultrasound. If R hydro persists and creatinine doesn't decrease will consider R ureteral stent early next week
[2018-06-13 14:29] VITALS: BP 97/64
--- NOTE | 2018-06-13 16:14 | RADIOLOGY REPORT ---
EXAMINATION: XR CHEST CLINICAL INFORMATION: Pulmonary vascular congestion. Congestive heart failure. COMPARISON: CXR from 07/29/2017, 07/31/2017 and 06/03/2018. TECHNIQUE: 2 views of the chest were obtained. FINDINGS: Lungs are chronically hyperexpanded from emphysematous disease. The peribronchial interstitium is accentuated by the emphysematous disease. No acute pulmonary edema or pleural effusion. On the lateral view, there is a questionable finding of a 1.2 cm posterior, subpleural opacity in one of the superior segments of the lower lobes. Alternatively, this might represent an artifactual opacity produced by overlapping rib and vertebral shadows. Cardiac silhouette is normal in size. Pulmonary arteries are chronically enlarged -- as may be seen in pulmonary arterial hypertension. The bones appear diffusely osteopenic. IMPRESSION: - No evidence of active congestive heart failure. - Chronic emphysematous lung disease. - Possible subpleural opacity in one of the superior segments of the lower lobes. To ensure absence of a pulmonary nodule in the lower lobes, recommend noncontrast chest CT follow-up.
--- NOTE | 2018-06-13 17:33 | ULTRASOUND REPORT ---
EXAMINATION: US RETROPERITONEAL COMPLETE (RENAL) CLINICAL INFORMATION: Worsening renal function.. COMPARISON: Renal ultrasound, 06/04/2018. Abdomen CT from 06/06/2018. TECHNIQUE: Real-time imaging of the kidneys and bladder. FINDINGS: RIGHT KIDNEY: 9.5 x 5.3 x 5.3 cm (SAG x AP x TRV). The kidney has normal cortical thickness. The cortex appears slightly hyperechoic, as may be seen in medical renal disease. Persistent mild hydronephrosis, similar compared to 06/04/2018. No evidence of nephrolithiasis. LEFT KIDNEY: 8.9 x 5.3 x 4.9 cm (SAG x AP x TRV). Mild atrophy of renal cortex. Again noted is hyperechogenicity of the renal cortex. No focal parenchymal lesion. No hydronephrosis or nephrolithiasis. BLADDER: Urinary bladder is underdistended, containing volume of approximately 31 mL. The ureteral jets were not identified. IMPRESSION: - The kidneys have increased cortical echogenicity, suggestive of medical renal disease. - The mild right hydronephrosis remains similar in appearance compared to 06/04/2018.
[2018-06-13 23:45] VITALS: BP 116/68
[2018-06-14 06:56] VITALS: BP 110/66
--- NOTE | 2018-06-14 08:34 | PN- Housestaff ---
Chuy DEL VALLE,Trung 06/14/18 0834: Subjective Follow-up For: ABDIRASHID Subjective: seen and examined at bedside He is not happay his scheduled xanax has been disconituned No acute o/n event. Review of Systems Constitutional: Reports: see HPI. Objective Last 24 Hrs of Vital Signs/I&O Vital Signs Date Time Temp Pulse Resp B/P B/P Pulse O2 O2 Flow FiO2 Mean Ox Delivery Rate 06/14 0656 97.9 74 20 110/66 98 Room Air 06/13 2345 98.1 84 16 116/68 95 Room Air 06/13 1429 97.6 88 16 97/64 96 Room Air Intake & Output 06/14 1600 06/14 0800 06/14 0000 Intake Total 240 300 Output Total 175 Balance 240 125 Intake, Oral 240 300 Output, Urine 175 Patient 83.716 kg 85.275 kg Weight Physical Exam General Appearance: Alert, Oriented X3, Cooperative Neck: Supple, No JVD Cardiovascular: Regular Rate, Normal S1, Normal S2 Lungs: Clear to Auscultation, Normal Air Movement Abdomen: Normal Bowel Sounds, Soft, No Tenderness Assessment/Plan Assessment: This is a 58-year-old male with past medical history of HIV on HAART, hepatitis C virus s/p Harvoni, CKD, neurogenic bladder and intermittent self-cath with BL Cr around 2.5, status post fusion surgery, left BKA for MRSA osteomyelitis initially placed in observation for left pubic ramus fracture and acute on chronic kidney injury who had a rapid response for myoclonic jerks 2/2 tetany from hypocalcemia due to severe metabolic derangements 2/2 renal failure due to obstructive uropathy. He was subsequently transferred to telemetry for further managemet of his ABDIRASHID on CKD. Assesment and PLAN: 1. Obstructive uropathy with acute on chronic kidney failure: His Cr is 5.0 today and renal imaging obtained yesterday is still remarkable for hydonephrosis , * Await uro reccs, candidate for stent placement(?) * Mcgregor removed 3 days ago, straight cathing at this time * Con't EPO/sevalemer/Calcitriol * Per nephro pt will undergo vascular evaluation for dialysis fistula placemet. 2. Stercoral colitis: Pt c/o pain due to hemorrhoids and constipation. * continue Bowel REG * Prep H 3. Right pubic ramus fracture: Conservative mgmt * Current pain regimen being mindful of his constipation 5. HIV: Last CD4 196; Undetectable viral load. He usually goes [facility]. He currently has pancytopenia. * Con't Dolutegravir * Con't Abacavir * Monitor CBC * Given his low CD4 there is consdieration for PCP ppx. However given his renal function hesitant to start Bactrim. Will con't monitor off ppx at this time. Upon d/c will need to re-evaluate 6) Anemia: stable. Likely 2/2 Renal failure and CKD. * Con't procrit 7) Hx Hep C s/p harvoni and Cirrhosis: * Avoid liver toxins 8) Anxiety: * Con't Xanax FC HHD Problem List: 1. Facxd-mk-cefrlsy kidney injury 2. Hydronephrosis Pain Ratin Pain Location: back Pain Goal: Remain pain free Pain Plan: per pathway Tomorrow's Labs & Rationales: marsha Hamilton MD,Lori 06/14/18 0844: Attending MD Review Statement Attending Statement Attending MD Statement: examined this patient, discuss w/resident/PA/SOLAR MECHANICAL ENGINEER, agreed w/resident/PA/SOLAR MECHANICAL ENGINEER, reviewed EMR data (avail), discussed with nursing, reviewed images Attending Assessment/Plan: Appreciate urology evaluation. Patient had a repeat renal ultrasound which showed mild right hydro-. We are awaiting this morning's creatinine, yesterday was 5. He had an episode yesterday and was given a dose of alprazolam, of note he does take alprazolam chronically on an as needed basis. He has HIV on HAART therapy, previous hep C and has ABDIRASHID on CKD with obstructive uropathy and glomerulonephritis.
[2018-06-14 09:23] LABS: ABSOLUTE BASOPHIL COUNT 0 /CUMM (0.0-0.2); ABSOLUTE EOSINOPHIL COUNT 0.2 /CUMM (0.0-0.7); ABSOLUTE GRANULOCYTE CT 2.5 /CUMM (1.4-6.5); ABSOLUTE MONOCYTE COUNT 0.5 /CUMM (0.10-0.60); BASOPHIL % 0.5 % (0.0-2.0); EOSINOPHIL % 2.5 % (0-5); GRANULOCYTE % 40.2 % (42.2-75.2); HEMATOCRIT 25.8 % (42-52); MEAN CORPUSCULAR HGB 34.9 PG (27.0-31.0); MEAN CORPUSCULAR VOLUME 96.8 FL (80.0-94.0); MEAN PLATELET VOLUME 8.3 FL (7.4-10.4); PLATELET COUNT 134 /CUMM (130-400); RBC DISTRIBUTION WIDTH 17.6 % (11.5-14.5); RED BLOOD CELL CT 2.67 /CUMM (4.70-6.10); WHITE BLOOD CELL COUNT 6.2 /CUMM (4.8-10.8)
[2018-06-14 15:05] VITALS: BP 114/68
[2018-06-14 22:16] VITALS: BP 112/78
[2018-06-15 06:47] VITALS: BP 136/78
--- NOTE | 2018-06-15 09:42 | PN- Urology ---
Surgical Brief Attending Note Brief Attending Note: Repeat renal ultrasound shows similar R hydronephrosis. Creatinine=5.0. Plan: 1. Will schedule for cysto and R ureteral stent tomorrow 2. Please keep npo after midnight except for po meds with sip of water 3. Procedure explained to patient in detail
--- NOTE | 2018-06-15 10:05 | PN- Housestaff ---
Subjective Follow-up For: Doris pickering Tele-Events Since Last Visit: not on tele Subjective: Saw pt at bedside. He stated he felt better. no acute complaints. Going for cysto tomorrow with stent placement Review of Systems Constitutional: Denies: chills, weakness. EENTM: Reports: no symptoms. Cardiovascular: Reports: no symptoms. Respiratory: Reports: no symptoms. Gastrointestinal: Reports: no symptoms. Genitourinary: Reports: no symptoms. Musculoskeletal: Reports: no symptoms. Objective Last 24 Hrs of Vital Signs/I&O Vital Signs Date Time Temp Pulse Resp B/P B/P Pulse O2 O2 Flow FiO2 Mean Ox Delivery Rate 06/15 1346 98.1 80 20 140/70 96 Room Air 06/15 1224 Room Air 06/15 0800 95 Room Air 06/15 0647 97.7 78 20 136/78 95 06/14 2216 97.7 79 22 112/78 96 Intake & Output 06/15 1600 06/15 0800 06/15 0000 Intake Total 200 240 Output Total 200 400 Balance 0 -160 Intake, Oral 200 240 Output, Urine 200 400 Patient 83.546 kg Weight Physical Exam General Appearance: Alert, Oriented X3, Cooperative, No Acute Distress HEENT: Atraumatic, PERRLA Cardiovascular: Regular Rate, Normal S1, Normal S2 Lungs: Normal Air Movement Abdomen: Soft Assessment/Plan Assessment: This is a 58-year-old male with past medical history of HIV on HAART, hepatitis C virus s/p Harvoni, CKD, neurogenic bladder and intermittent self-cath with BL Cr around 2.5, status post fusion surgery, left BKA for MRSA osteomyelitis initially placed in observation for left pubic ramus fracture and acute on chronic kidney injury who had a rapid response for myoclonic jerks 2/2 tetany from hypocalcemia due to severe metabolic derangements 2/2 renal failure due to obstructive uropathy. He was subsequently transferred to telemetry for further managemet of his ABDIRASHID on CKD. - PLAN: 1. Obstructive uropathy with acute on chronic kidney failure: His Cr is 5.0 today. Steady for the past 3 days. Will go for cysto and stent placement tomorrow. * npo midnight * Ur protein/ Cr ratio * Mcgregor removed 3 days ago, straight cathing at this time * Con't EPO/sevalemer/Calcitriol * Per nephro pt will undergo vascular evaluation for dialysis fistula placemet. 2. Stercoral colitis: Pt c/o pain due to hemorrhoids and constipation. * continue Bowel REG * Prep H 3. Right pubic ramus fracture: Conservative mgmt * Current pain regimen being mindful of his constipation 5. HIV: Last CD4 196; Undetectable viral load. He usually goes to [facility] for his care. He currently has pancytopenia. * Con't Dolutegravir * Con't Abacavir * Monitor CBC * Given his low CD4 there is consdieration for PCP ppx. However given his renal function hesitant to start Bactrim. Will con't monitor off ppx at this time. Upon d/c will need to re-evaluate 6) Pancytopenia: stable. Likely 2/2 Hep C/HIV and CKD. His cytopenias have all overall improved * Con't procrit 7) Hx Hep C s/p harvoni and Cirrhosis: * Avoid liver toxins 8) Anxiety: * Con't Xanax FC HHD Problem List: 1. Acute renal failure Pain Ratin Pain Location: none Pain Goal: Remain pain free Pain Plan: current reg Tomorrow's Labs & Rationales: cbc bep
--- NOTE | 2018-06-15 11:14 | PN- Att Addend ---
Attending Addendum Attending Brief Note Patient seen and examined, doing okay but said that he is upset about his Xanax. He tells me that he takes Xanax 3 times a day scheduled at home. He was also seen by urology Dr. Rios and there is a plan to do ureteral stent tomorrow. Vital Signs Date Time Temp Pulse Resp B/P B/P Pulse O2 O2 Flow FiO2 Mean Ox Delivery Rate 06/15 0800 95 Room Air 06/15 0647 97.7 78 20 136/78 95 06/14 2216 97.7 79 22 112/78 96 06/14 1505 98.0 77 18 114/68 98 Room Air on exam; aox3, nad cv; s1,s2, rrr resp; clear abd; soft, nt, bs+ ext; no edema Laboratory Tests 06/15 0716 Chemistry Sodium (137 - 145 mmol/L) 135 L Potassium (3.5 - 5.1 mmol/L) 4.6 Chloride (98 - 107 mmol/L) 110 H Carbon Dioxide (22 - 30 mmol/L) 17 L Anion Gap (5 - 16) 8 BUN (9 - 20 mg/dL) 39 H Creatinine (0.7 - 1.2 mg/dL) 5.0 H Estimated GFR (>60 ml/min) 12 L BUN/Creatinine Ratio (7 - 25 %) 7.8 A/P; 58 y/o M with pmh sig for HIV on HAART, HCV s/p Harvoni, CKD stage 4, anxiety, ch anemia likely 2/2 to HIV and CKD and asthma, recnent fall is admitted with acute right groin pain and found to have Subtle nondisplaced fracture along the right superior pubic ramus which extends into the acetabulum addition to a minimally displaced fracture of the right inferior pubic ramus. There is no fracture of the right femur identified on CT pelvis. Pt seen by ortho and conservative Mx was recommended with PT. Patient also has acute on chronic kidney disease. Patient developed twiching movements and was tx to ICU with question of new seizure which later turned out to be some kind of clonus 2/ 2 to metabolic derrangements as evaluated by Neuro. Patient then. transferred back to telemetry. Tele was discontinued. Creatinine continues to remain in the high range. Patient scheduled for ureteral stent tomorrow by urology. We will keep him n.p.o. after midnight tonight and start IV fluids. We will continue the scheduled Xanax 0.5 mg 3 times daily. We will continue to avoid nephrotoxic medications. Will monitor Cr post urologic procedure. Continue other current mx.
--- NOTE | 2018-06-15 12:31 | PN- Nephrology ---
Assessment/Plan Nephrology Assessment: 1. ABDIRASHID -he has had essentially 2 episodes as many weeks. On his last visit, the concern was whether or not he was volume depleted. He does have increased echogenicity on ultrasound. However, 6 months ago, his serum creatinine was 1.8. He is to have a stent placed tomorrow 2. Chronic kidney disease. Will need to send a random protein and creatinine ratio. 3. Hypotension -much improved 4. Neuromuscular irritability resolved 5. Metabolic acidosis -maintain on po sodium bicarbonate 6. Hyperphosphatemia -improved on sevelamer 7. Profound hypocalcemia -asymptomatic and much improved on Vit D, calcitriol and calcium 8. Pancytopenia including severe anemia 9. History of hepatitis C. his complements were low on his last visit. However , he did not have any active virus in his bloodstream. Suggestion: 1. Await stent placement. It is hoped this will improve his renal function. 2. Jordon Arndt MD reported that the patient had seen a product blending supervisor in [place]. Reviewing the notes in [facility], he is only seeing urology. In speaking with the patient, he is never seen a product blending supervisor. 3. Review lab data from outpatient record Subjective Subjective: Patient feels okay. Sleeping when I entered the room. Objective Vital Signs and I&Os Vital Signs Date Time Temp Pulse Resp B/P B/P Pulse O2 O2 Flow FiO2 Mean Ox Delivery Rate 06/15 1224 Room Air 06/15 0800 95 Room Air 06/15 0647 97.7 78 20 136/78 95 06/14 2216 97.7 79 22 112/78 96 06/14 1505 98.0 77 18 114/68 98 Room Air Intake & Output 06/15 1600 06/15 0400 06/14 1600 06/14 0400 06/13 1600 06/13 0400 Intake Total 397 477 0854 300 460 Output Total 200 400 800 175 600 Balance 0 -160 340 125 460 -600 Intake, IV 100 Intake, Oral 909 451 0432 300 360 Number 0 0 Bowel Movements Output, Urine 200 400 800 175 600 Patient 184 lb 185 lb 188 lb 190 lb Weight Weight Bed scale Measurement Method Physical Exam: General: Well-developed chronically ill-appearing white male in NAD Skin: No jaundice, multiple ecchymoses HEENT: Conjunctivae pale, sclerae anicteric, left corneal haziness Neck: Without masses or thyromegaly, no supraclavicular or cervical adenopathy, Chest: Clear to auscultation and percussion Heart: Regular rate and rhythm without S3 or rub Abdomen: Soft and nontender without palpable masses or organomegaly question caput medusa? Extremities: Left BKA, no significant edema Neuro: Awake and alert, no focal findings, Results Pertinent Lab Results: Laboratory Tests 06/15 06/14 0716 0709 Chemistry Sodium (137 - 145 mmol/L) 135 L 137 Potassium (3.5 - 5.1 mmol/L) 4.6 4.9 Chloride (98 - 107 mmol/L) 110 H 112 H Carbon Dioxide (22 - 30 mmol/L) 17 L 18 L Anion Gap (5 - 16) 8 6 BUN (9 - 20 mg/dL) 39 H 40 H Creatinine (0.7 - 1.2 mg/dL) 5.0 H 5.0 H Estimated GFR (>60 ml/min) 12 L 12 L BUN/Creatinine Ratio (7 - 25 %) 7.8 8.0 Hematology CBC w Diff NO MAN DIFF REQ WBC (4.8 - 10.8 /CUMM) 6.2 RBC (4.70 - 6.10 /CUMM) 2.67 L Hgb (14.0 - 18.0 G/DL) 9.3 L Hct (42 - 52 %) 25.8 L MCV (80.0 - 94.0 FL) 96.8 H MCH (27.0 - 31.0 PG) 34.9 H MCHC (33.0 - 37.0 G/DL) 36.0 RDW (11.5 - 14.5 %) 17.6 H Plt Count (130 - 400 /CUMM) 134 MPV (7.4 - 10.4 FL) 8.3 Gran % (42.2 - 75.2 %) 40.2 L Lymphocytes % (20.5 - 51.1 %) 48.5 Monocytes % (1.7 - 9.3 %) 8.3 Eosinophils % (0 - 5 %) 2.5 Basophils % (0.0 - 2.0 %) 0.5 Absolute Granulocytes (1.4 - 6.5 /CUMM) 2.5 Absolute Lymphocytes (1.2 - 3.4 /CUMM) 3.0 Absolute Monocytes (0.10 - 0.60 /CUMM) 0.5 Absolute Eosinophils (0.0 - 0.7 /CUMM) 0.2 Absolute Basophils (0.0 - 0.2 /CUMM) 0 06/13 0657 Chemistry Sodium (137 - 145 mmol/L) 138 Potassium (3.5 - 5.1 mmol/L) 4.4 Chloride (98 - 107 mmol/L) 113 H Carbon Dioxide (22 - 30 mmol/L) 18 L Anion Gap (5 - 16) 8 BUN (9 - 20 mg/dL) 40 H Creatinine (0.7 - 1.2 mg/dL) 5.0 H Estimated GFR (>60 ml/min) 12 L BUN/Creatinine Ratio (7 - 25 %) 8.0 Hematology CBC w Diff MAN DIFF ORDERED WBC (4.8 - 10.8 /CUMM) 5.1 RBC (4.70 - 6.10 /CUMM) 2.56 L Hgb (14.0 - 18.0 G/DL) 8.6 L Hct (42 - 52 %) 24.6 L MCV (80.0 - 94.0 FL) 96.1 H MCH (27.0 - 31.0 PG) 33.5 H MCHC (33.0 - 37.0 G/DL) 34.9 RDW (11.5 - 14.5 %) 18.1 H Plt Count (130 - 400 /CUMM) 127 L MPV (7.4 - 10.4 FL) 7.9 Gran % (42.2 - 75.2 %) 31.7 L Lymphocytes % (20.5 - 51.1 %) 56.6 H Monocytes % (1.7 - 9.3 %) 8.4 Eosinophils % (0 - 5 %) 2.9 Basophils % (0.0 - 2.0 %) 0.4 Absolute Granulocytes (1.4 - 6.5 /CUMM) 1.6 Absolute Lymphocytes (1.2 - 3.4 /CUMM) 2.9 Absolute Monocytes (0.10 - 0.60 /CUMM) 0.4 Absolute Eosinophils (0.0 - 0.7 /CUMM) 0.1 Absolute Basophils (0.0 - 0.2 /CUMM) 0 Platelet Estimate (ADEQUATE) DECREASED Polychromasia 1+ Basophilic Stippling 1+ Anisocytosis 1+
[2018-06-15 13:46] VITALS: BP 140/70
[2018-06-15 21:54] VITALS: BP 125/70
--- NOTE | 2018-06-16 06:38 | PN- Housestaff ---
Subjective Follow-up For: r. hydronephrosis and abdirashid on ckd Subjective: Saw pt at [facility] this AM. NPO going for cysto and stent placement today. No acute overnight events. Review of Systems Constitutional: Denies: chills, fever, weakness. EENTM: Reports: no symptoms. Cardiovascular: Reports: no symptoms. Respiratory: Reports: no symptoms. Gastrointestinal: Denies: abdominal pain, constipation. Genitourinary: Reports: no symptoms. Objective Last 24 Hrs of Vital Signs/I&O Vital Signs Date Time Temp Pulse Resp B/P B/P Pulse O2 O2 Flow FiO2 Mean Ox Delivery Rate 06/16 0652 99.2 95 18 158/70 93 Room Air 06/15 2154 98.7 78 16 125/70 97 Room Air 06/15 1346 98.1 80 20 140/70 96 Room Air 06/15 1224 Room Air Intake & Output 06/16 1600 06/16 0800 06/16 0000 Intake Total 600 600 Output Total 250 Balance 600 350 Intake, IV 600 Intake, Oral 600 Output, Urine 250 Patient 84.368 kg Weight Physical Exam General Appearance: Alert, Oriented X3, Cooperative, No Acute Distress HEENT: Atraumatic, PERRLA Neck: Supple Cardiovascular: Regular Rate, Normal S1, Normal S2 Lungs: Clear to Auscultation, Normal Air Movement Abdomen: Normal Bowel Sounds, Soft Neurological: Normal Speech Current Medications: Current Medications Sig/Puma Start time Last Medication Dose Route Stop Time Status Admin Abacavir Sulfate 300 MG DAILY 06/03 0900 AC 06/16 PO 0939 Acetaminophen 0 .STK-MED ONE 06/16 0931 DC IV Acetaminophen 650 MG Q6P PRN 06/02 2145 AC 06/04 PO 0914 Alprazolam 0.5 MG TID 06/15 1400 AC 06/16 PO 06/22 1359 0939 Alprazolam 0.5 MG TID PRN 06/14 1427 DC 06/15 PO 06/15 1359 0124 Bisacodyl 10 MG DAILY 06/13 0900 AC 06/13 [place] 0840 Calcitriol 0.25 MCG DAILY 06/06 1058 AC 06/15 PO 1022 Venetia Butter/Shark 1 DEDRICK Q6-PRN PRN 06/07 0830 AC 06/10 Liver Oil TOP 1049 Dextrose/Sodium 1,000 ML ONCE ONE 06/15 2300 AC 06/15 Chloride IV 06/16 1219 2351 Docusate Sodium 100 MG DAILY NEEDED PRN 06/10 1045 AC PO Docusate Sodium 100 MG DAILY 06/03 900 AC 06/15 PO 1021 Dolutegravir Sodium 50 MG DAILY 06/03 09 AC 06/16 PO 0939 Epoetin Gianni 20,000 U Q168 06/05 1400 AC 06/12 SC 0843 Ergocalciferol 50,000 IU ONCE A WEEK 06/06 1000 AC 06/13 PO 1004 Fentanyl Citrate 0 .STK-MED ONE 06/16 0932 DC .ROUTE Folic Acid 1 MG DAILY 06/03 900 AC 06/15 PO 1022 Hydromorphone HCl 0 .STK-MED ONE 06/16 931 DC .ROUTE Lactulose 20 GM DAILY 06/03 900 AC 06/15 PO 1022 Midazolam HCl 0 .STK-MED ONE 06/16 931 DC .ROUTE Multivitamins 1 TAB DAILY 06/03 900 AC 06/15 Therapeutic PO 1023 Oxycodone HCl 30 MG Q6 06/12 1200 AC 06/16 PO 0546 Oxycodone HCl 40 MG Q12 06/11 2100 AC 06/16 PO 0939 Phenyleph/Shark Oil/ 1 SUP DAILY NEEDED PRN 06/12 0930 AC 06/12 Venetia Butter [place] 1112 Polyethylene Glycol 17 GM DAILY 06/03 900 AC 06/15 PO 1022 Senna 187 MG AT BEDTIME PRN 06/10 1045 AC PO Senna 187 MG DAILY 06/03 900 AC 06/15 PO 1022 Sevelamer HCl 1,600 MG WM 06/03 1200 AC 06/15 PO 1359 Sodium Bicarbonate 1,300 MG BID 06/09 2100 AC 06/15 PO 2112 Thiamine HCl 100 MG DAILY 06/03 900 AC 06/15 PO 1024 Trazodone HCl 200 MG QPM PRN 06/02 2345 AC PO Vitamin A/Vitamin D 1 DEDRICK BID 06/03 2100 AC 06/15 TOP 2111 Last 24 Hrs of Lab/Attila Results Last 24 Hrs of Labs/Mics: Laboratory Tests 06/16/18 0728: Anion Gap 8, Estimated GFR 12 L, BUN/Creatinine Ratio 7.3, PT 12.1, INR 1.11, APTT 47 H, CBC w Diff NO MAN DIFF REQ, RBC 2.89 L, MCV 96.0 H, MCH 33.0 H, MCHC 34.3, RDW 18.3 H, MPV 7.8, Gran % 39.5 L, Lymphocytes % 49.4, Monocytes % 7.2, Eosinophils % 3.2, Basophils % 0.7, Absolute Granulocytes 2.1, Absolute Lymphocytes 2.6, Absolute Monocytes 0.4, Absolute Eosinophils 0.2, Absolute Basophils 0 06/15/18 1640: Ur Random Creatinine 35.7, U Random Total Protein 138 H, Protein/Creatinin Ratio 3.8 H Microbiology 06/16 1042 URINE ROUT: Urine Culture - COLB Assessment/Plan Assessment: This is a 58-year-old male with past medical history of HIV on HAART, hepatitis C virus s/p Harvoni, CKD, neurogenic bladder and intermittent self-cath with BL Cr around 2.5, status post fusion surgery, left BKA for MRSA osteomyelitis initially placed in observation for left pubic ramus fracture and acute on chronic kidney injury who had a rapid response for myoclonic jerks 2/2 tetany from hypocalcemia due to severe metabolic derangements 2/2 renal failure due to obstructive uropathy. He was subsequently transferred to telemetry for further managemet of his ABDIRASHID on CKD. - PLAN: 1. Obstructive uropathy with acute on chronic kidney failure: His Cr is 4.9 today. Steady for the past 3 days. Will go for cysto and stent placement today. * npo midnight * Ur protein/ Cr ratio * Mcgregor removed 4 days ago, straight cathing at this time * Con't EPO/sevalemer/Calcitriol * Per nephro pt will undergo vascular evaluation for dialysis fistula placemet. 2. Stercoral colitis: Pt c/o pain due to hemorrhoids and constipation. * continue Bowel REG * Prep H * tap water enema 3. Right pubic ramus fracture: Conservative mgmt * Current pain regimen being mindful of his constipation 5. HIV: Last CD4 196; Undetectable viral load. He usually [facility]. He currently has pancytopenia. * Con't Dolutegravir * Con't Abacavir * Monitor CBC * Given his low CD4 there is consdieration for PCP ppx. However given his renal function hesitant to start Bactrim. Will con't monitor off ppx at this time. Upon d/c will need to re-evaluate 6) Pancytopenia: stable. Likely 2/2 Hep C/HIV and CKD. His cytopenias have all overall improved * Con't procrit 7) Hx Hep C s/p harvoni and Cirrhosis: * Avoid liver toxins 8) Anxiety: * Con't Xanax FC HHD Problem List: 1. Open wound of foot Pain Ratin Pain Location: none Pain Goal: Remain pain free Pain Plan: none Tomorrow's Labs & Rationales: cbc bep
[2018-06-16 06:52] VITALS: BP 158/70
[2018-06-16 08:32] LABS: ABSOLUTE BASOPHIL COUNT 0 /CUMM (0.0-0.2); ABSOLUTE EOSINOPHIL COUNT 0.2 /CUMM (0.0-0.7); ABSOLUTE GRANULOCYTE CT 2.1 /CUMM (1.4-6.5); ABSOLUTE LYMPH COUNT 2.6 /CUMM (1.2-3.4); ABSOLUTE MONOCYTE COUNT 0.4 /CUMM (0.10-0.60); BASOPHIL % 0.7 % (0.0-2.0); EOSINOPHIL % 3.2 % (0-5); GRANULOCYTE % 39.5 % (42.2-75.2); HEMATOCRIT 27.8 % (42-52); MEAN CORPUSCULAR HGB CONC 34.3 G/DL (33.0-37.0); MEAN PLATELET VOLUME 7.8 FL (7.4-10.4); PLATELET COUNT 143 /CUMM (130-400); RBC DISTRIBUTION WIDTH 18.3 % (11.5-14.5); RED BLOOD CELL CT 2.89 /CUMM (4.70-6.10); WHITE BLOOD CELL COUNT 5.3 /CUMM (4.8-10.8)
[2018-06-16 08:45] LABS: PT 12.1 SEC (9.4-12.5); PTT 47 SEC (25-37)
--- NOTE | 2018-06-16 10:01 | PN- Att Addend ---
Attending Addendum Attending Brief Note Patient seen and examined, waiting for the procedure. Patient is scheduled for cystoscopy and ureteral stent today. No other acute events overnight. Vital signs are stable. Creatinine today is 4.9. Vital Signs Date Time Temp Pulse Resp B/P B/P Pulse O2 O2 Flow FiO2 Mean Ox Delivery Rate 06/16 0652 99.2 95 18 158/70 93 Room Air 06/15 2154 98.7 78 16 125/70 97 Room Air 06/15 1346 98.1 80 20 140/70 96 Room Air 06/15 1224 Room Air on exam; aox3, nad. cv; s1,s2, rrr resp; clear abd; soft, nt, bs+ ext; no edema Laboratory Tests 06/16 06/15 0728 1640 Chemistry Sodium (137 - 145 mmol/L) 135 L Potassium (3.5 - 5.1 mmol/L) 4.3 Chloride (98 - 107 mmol/L) 107 Carbon Dioxide (22 - 30 mmol/L) 20 L Anion Gap (5 - 16) 8 BUN (9 - 20 mg/dL) 36 H Creatinine (0.7 - 1.2 mg/dL) 4.9 H Estimated GFR (>60 ml/min) 12 L BUN/Creatinine Ratio (7 - 25 %) 7.3 Coagulation PT (9.4 - 12.5 SEC) 12.1 INR (0.90 - 1.17) 1.11 APTT (25 - 37 SEC) 47 H Hematology CBC w Diff NO MAN DIFF REQ WBC (4.8 - 10.8 /CUMM) 5.3 RBC (4.70 - 6.10 /CUMM) 2.89 L Hgb (14.0 - 18.0 G/DL) 9.5 L Hct (42 - 52 %) 27.8 L MCV (80.0 - 94.0 FL) 96.0 H MCH (27.0 - 31.0 PG) 33.0 H MCHC (33.0 - 37.0 G/DL) 34.3 RDW (11.5 - 14.5 %) 18.3 H Plt Count (130 - 400 /CUMM) 143 MPV (7.4 - 10.4 FL) 7.8 Gran % (42.2 - 75.2 %) 39.5 L Lymphocytes % (20.5 - 51.1 %) 49.4 Monocytes % (1.7 - 9.3 %) 7.2 Eosinophils % (0 - 5 %) 3.2 Basophils % (0.0 - 2.0 %) 0.7 Absolute Granulocytes (1.4 - 6.5 /CUMM) 2.1 Absolute Lymphocytes (1.2 - 3.4 /CUMM) 2.6 Absolute Monocytes (0.10 - 0.60 /CUMM) 0.4 Absolute Eosinophils (0.0 - 0.7 /CUMM) 0.2 Absolute Basophils (0.0 - 0.2 /CUMM) 0 Urines Ur Random Creatinine (mg/dL) 35.7 U Random Total Protein (0 - 12 mg/dL) 138 H Protein/Creatinin Ratio (< 0.2) 3.8 H A/P; 58 y/o M with pmh sig for HIV on HAART, HCV s/p Harvoni, CKD stage 4, anxiety, ch anemia likely 2/2 to HIV and CKD and asthma, recnent fall is admitted with acute right groin pain and found to have Subtle nondisplaced fracture along the right superior pubic ramus which extends into the acetabulum addition to a minimally displaced fracture of the right inferior pubic ramus. There is no fracture of the right femur identified on CT pelvis. Pt seen by ortho and conservative Mx was recommended with PT. Patient also has acute on chronic kidney disease. Patient developed twiching movements and was tx to ICU with question of new seizure which later turned out to be some kind of clonus 2/ 2 to metabolic derrangements as evaluated by Neuro. Patient then. transferred back to telemetry. Tele was discontinued few days ago. Patient's creatinine maintained in the high range. Patient was seen by urology again in the have scheduled him for cystoscopy and ureteral stent today. Patient go for procedure today. Will follow up afterwards. We will continue to monitor his creatinine. Continue all other current medications and continue to avoid nephrotoxic medications. Patient did receive IV fluids overnight. If his creatinine is stable by tomorrow after the procedure and then likely he can be discharged to rehab tomorrow. Continue all other current mx.
--- NOTE | 2018-06-16 11:29 | PN- Urology ---
Surgical Brief Attending Note Brief Attending Note: Patient underwent cystoscopy. There is no bladder outlet obstruction. Urine is very cloudy and culture taken. Bladder mucosa c/w cystitis. Unable to place R ureteral stent due to obstruction in R distal ureter. Carcinoma not excluded. Plan: 1. Would have IR place R nephrostomy. Will eventually need R ureteroscopy to determine cause of obstruction
--- NOTE | 2018-06-16 11:33 | Operative Report ---
Operative/Inv Procedure Report Surgery Date: 06/16/18 Name of Procedure: Cystoscopy and attempted R ureteral stent insertion Pre-Operative Diagnosis: R hydronephrosis Post-Operative Diagnosis: same Estimated Blood Loss: scant Surgeon/Office Manager: Lolis Anesthesia: laryngeal mask airway Drains: 16 fr robles Specimens: urine culture Complications: Unable to place stent Condition: stable Operative Indication: CKD with R hydronephrosis Operative/Procedure Note Note: The patient was taken to the cystoscopy room and identified. He was placed in supine position on the cystoscopy table. A timeout was executed properly with the patient awake. General anesthesia was induced for LMA. He was then placed in dorsal lithotomy position prepped and draped in usual fashion for cystoscopy. Surgical pause was executed appropriately. Fluoroscopy image was taken with a marker on the right side of the abdomen confirm the correct side of the surgery as well as a correct orientation of the fluoroscopy image. 22 Chinese cystoscope sheath was placed into the bladder under direct vision using the 30 lens. The anterior urethra was normal. Prostatic urethra was wide open and showed signs of previous TURP. Upon entering the bladder urine was very cloudy. Specimen was collected for culture. The bladder was irrigated. Cystoscopy was then performed. The right and left ureteral orifices were normal in location and appearance. The bladder mucosa had appearance of cystitis. An open-ended catheter was placed through the cystoscope and attempt was made to place the catheter into the right ureter. The catheter went about 2 cm and would not go any further. Attempt to place a guidewire through the open-ended catheter was unsuccessful. An angle tip Glidewire was also tried unsuccessfully. Some contrast was injected through the open-ended catheter and was definite obstruction of the distal ureter. At this point, in view of the cloudy urine it was decided not to perform ureteroscopy. Therefore the procedure was ended. Plan will be for right percutaneous nephrostomy and with sterile urine is documented repeat attempt at ureteroscopy to visualize because of obstruction. Findings: Obstruction right distal ureter, cystitis Discharge Disposition: PACU
--- NOTE | 2018-06-16 12:57 | PN- Nephrology ---
Assessment/Plan Nephrology Assessment: 1. ABDIRASHID -Stent could not be placed because of distal obstruction of the R ureter. The urine was cloudy and a culture was sent. If this proves to be the cause of ABDIRASHID this may be reversible. 2. Chronic kidney disease. Will need to send a random protein and creatinine ratio. 3. Hypotension -much improved 4. Neuromuscular irritability resolved 5. Metabolic acidosis -maintain on po sodium bicarbonate 6. Hyperphosphatemia -improved on sevelamer 7. Profound hypocalcemia -asymptomatic and much improved on Vit D, calcitriol and calcium 8. Pancytopenia including severe anemia 9. History of hepatitis C. his complements were low on his last visit. However , he did not have any active virus in his bloodstream. Suggestion: 1. Would call IR re Right perc Neph 2. No urgent dialytic need Subjective Subjective: Patient seenpPatient seen , s/p cystoscopy and attempted ureteroscopy. Feels OK. Discussed the need for perc Neph Objective Vital Signs and I&Os Vital Signs Date Time Temp Pulse Resp B/P B/P Pulse O2 O2 Flow FiO2 Mean Ox Delivery Rate 06/16 0652 99.2 95 18 158/70 93 Room Air 06/15 2154 98.7 78 16 125/70 97 Room Air 06/15 1346 98.1 80 20 140/70 96 Room Air Intake & Output 06/16 1600 06/16 0400 06/15 1600 06/15 0400 06/14 1600 06/14 0400 Intake Total 600 600 040 247 8613 300 Output Total 250 700 400 800 175 Balance 600 350 -500 -160 340 125 Intake, IV 600 Intake, Oral 600 088 861 4343 300 Number 0 Bowel Movements Output, Urine 250 700 400 800 175 Patient 186 lb 184 lb 185 lb 188 lb Weight Physical Exam: General: Well-developed chronically ill-appearing white male in NAD Skin: No jaundice, multiple ecchymoses HEENT: Conjunctivae pale, sclerae anicteric, left corneal haziness Neck: Without masses or thyromegaly, no supraclavicular or cervical adenopathy, Chest: Clear to auscultation and percussion Heart: Regular rate and rhythm without S3 or rub Abdomen: Soft and nontender without palpable masses or organomegaly question caput medusa? Extremities: Left BKA, no significant edema Neuro: Awake and alert, no focal findings, Current Medications: Current Medications Sig/Puma Start time Last Medication Dose Route Stop Time Status Admin Abacavir Sulfate 300 MG DAILY 06/03 900 AC 06/16 PO 0939 Acetaminophen 0 .STK-MED ONE 06/16 931 DC IV Acetaminophen 650 MG Q6P PRN 06/02 2145 AC 06/04 PO 0914 Alprazolam 0.5 MG TID 06/15 1400 AC 06/16 PO 06/22 1359 0939 Alprazolam 0.5 MG TID PRN 06/14 1427 DC 06/15 PO 06/15 1359 0124 Bisacodyl 10 MG DAILY 06/13 0900 AC 06/13 CO 0840 Calcitriol 0.25 MCG DAILY 06/06 1058 AC 06/15 PO 1022 [place] Butter/Shark 1 DEDRICK Q6-PRN PRN 06/07 0830 AC 06/10 Liver Oil TOP 1049 Dextrose/Sodium 1,000 ML ONCE ONE 06/15 2300 DC 06/15 Chloride IV 06/16 1219 2351 Docusate Sodium 100 MG DAILY NEEDED PRN 06/10 1045 AC PO Docusate Sodium 100 MG DAILY 06/03 09 AC 06/15 PO 1021 Dolutegravir Sodium 50 MG DAILY 06/03 09 AC 06/16 PO 0939 Epoetin Gianni 20,000 U Q168 06/05 1400 AC 06/12 SC 0843 Ergocalciferol 50,000 IU ONCE A WEEK 06/06 1000 AC 06/13 PO 1004 Fentanyl Citrate 0 .STK-MED ONE 06/16 0932 DC .ROUTE Folic Acid 1 MG DAILY 06/03 900 AC 06/15 PO 1022 Hydromorphone HCl 0 .STK-MED ONE 06/16 931 DC .ROUTE Lactulose 20 GM DAILY 06/03 900 AC 06/15 PO 1022 Midazolam HCl 0 .STK-MED ONE 06/16 931 DC .ROUTE Multivitamins 1 TAB DAILY 06/03 900 AC 06/15 Therapeutic PO 1023 Oxycodone HCl 30 MG Q6 06/12 1200 AC 06/16 PO 1240 Oxycodone HCl 40 MG Q12 06/11 2100 AC 06/16 PO 0939 Phenyleph/Shark Oil/ 1 SUP DAILY NEEDED PRN 06/12 0930 AC 06/12 [place] Butter CO 1112 Polyethylene Glycol 17 GM DAILY 09/899 AC 06/15 PO 1022 Senna 187 MG AT BEDTIME PRN 06/10 1045 AC PO Senna 187 MG DAILY 06/03 09 AC 06/15 PO 1022 Sevelamer HCl 1,600 MG WM 06/03 1200 AC 06/16 PO 1240 Sodium Bicarbonate 1,300 MG BID 06/09 2100 AC 06/15 PO 2112 Thiamine HCl 100 MG DAILY 06/03 09 AC 06/15 PO 1024 Trazodone HCl 200 MG QPM PRN 06/02 2345 AC PO Vitamin A/Vitamin D 1 DEDRICK BID 06/03 2100 AC 06/15 TOP 2111 Results Pertinent Lab Results: Laboratory Tests 06/16 06/15 06/15 0728 1640 0716 Chemistry Sodium (137 - 145 mmol/L) 135 L 135 L Potassium (3.5 - 5.1 mmol/L) 4.3 4.6 Chloride (98 - 107 mmol/L) 107 110 H Carbon Dioxide (22 - 30 mmol/L) 20 L 17 L Anion Gap (5 - 16) 8 8 BUN (9 - 20 mg/dL) 36 H 39 H Creatinine (0.7 - 1.2 mg/dL) 4.9 H 5.0 H Estimated GFR (>60 ml/min) 12 L 12 L BUN/Creatinine Ratio (7 - 25 %) 7.3 7.8 Coagulation PT (9.4 - 12.5 SEC) 12.1 INR (0.90 - 1.17) 1.11 APTT (25 - 37 SEC) 47 H Hematology CBC w Diff NO MAN DIFF REQ WBC (4.8 - 10.8 /CUMM) 5.3 RBC (4.70 - 6.10 /CUMM) 2.89 L Hgb (14.0 - 18.0 G/DL) 9.5 L Hct (42 - 52 %) 27.8 L MCV (80.0 - 94.0 FL) 96.0 H MCH (27.0 - 31.0 PG) 33.0 H MCHC (33.0 - 37.0 G/DL) 34.3 RDW (11.5 - 14.5 %) 18.3 H Plt Count (130 - 400 /CUMM) 143 MPV (7.4 - 10.4 FL) 7.8 Gran % (42.2 - 75.2 %) 39.5 L Lymphocytes % (20.5 - 51.1 %) 49.4 Monocytes % (1.7 - 9.3 %) 7.2 Eosinophils % (0 - 5 %) 3.2 Basophils % (0.0 - 2.0 %) 0.7 Absolute Granulocytes (1.4 - 6.5 /CUMM) 2.1 Absolute Lymphocytes (1.2 - 3.4 /CUMM) 2.6 Absolute Monocytes (0.10 - 0.60 /CUMM) 0.4 Absolute Eosinophils (0.0 - 0.7 /CUMM) 0.2 Absolute Basophils (0.0 - 0.2 /CUMM) 0 Urines Ur Random Creatinine (mg/dL) 35.7 U Random Total Protein (0 - 12 mg/dL) 138 H Protein/Creatinin Ratio (< 0.2) 3.8 H 06/14 0709 Chemistry Sodium (137 - 145 mmol/L) 137 Potassium (3.5 - 5.1 mmol/L) 4.9 Chloride (98 - 107 mmol/L) 112 H Carbon Dioxide (22 - 30 mmol/L) 18 L Anion Gap (5 - 16) 6 BUN (9 - 20 mg/dL) 40 H Creatinine (0.7 - 1.2 mg/dL) 5.0 H Estimated GFR (>60 ml/min) 12 L BUN/Creatinine Ratio (7 - 25 %) 8.0 Hematology CBC w Diff NO MAN DIFF REQ WBC (4.8 - 10.8 /CUMM) 6.2 RBC (4.70 - 6.10 /CUMM) 2.67 L Hgb (14.0 - 18.0 G/DL) 9.3 L Hct (42 - 52 %) 25.8 L MCV (80.0 - 94.0 FL) 96.8 H MCH (27.0 - 31.0 PG) 34.9 H MCHC (33.0 - 37.0 G/DL) 36.0 RDW (11.5 - 14.5 %) 17.6 H Plt Count (130 - 400 /CUMM) 134 MPV (7.4 - 10.4 FL) 8.3 Gran % (42.2 - 75.2 %) 40.2 L Lymphocytes % (20.5 - 51.1 %) 48.5 Monocytes % (1.7 - 9.3 %) 8.3 Eosinophils % (0 - 5 %) 2.5 Basophils % (0.0 - 2.0 %) 0.5 Absolute Granulocytes (1.4 - 6.5 /CUMM) 2.5 Absolute Lymphocytes (1.2 - 3.4 /CUMM) 3.0 Absolute Monocytes (0.10 - 0.60 /CUMM) 0.5 Absolute Eosinophils (0.0 - 0.7 /CUMM) 0.2 Absolute Basophils (0.0 - 0.2 /CUMM) 0
[2018-06-16 14:52] VITALS: BP 112/60
[2018-06-16 16:00] VITALS: BP 112/60
--- NOTE | 2018-06-16 20:02 | RADIOLOGY REPORT ---
EXAMINATION: RIGHT URETEROSCOPY. C-ARM IMAGING. CLINICAL INFORMATION: Hydronephrosis of right kidney without hydroureter. COMPARISON: CT abdomen pelvis 06/06/2018. Renal ultrasound 06/13/2018 TECHNIQUE: C-arm imaging. Fluoroscopy time: 53 seconds Dose: 5.8 Gycm2 Number of images 3 Dr. Layton Danielle FINDINGS: Spot views show cannulation of the bladder. The guidewire and catheter remain in the pelvis with a small volume of contrast injected low in the central pelvis. The right ureter is not opacified proximal. IMPRESSION: Ureteroscopy seen in the bladder with a small volume of contrast injected low the central pelvis but the proximal ureter is not opacified.
[2018-06-16 22:10] VITALS: BP 122/79
[2018-06-16 23:00] VITALS: BP 124/80
--- NOTE | 2018-06-17 06:33 | PN- Housestaff ---
Ernie DEL VALLE[facility] 06[facility] 0632: Subjective Follow-up For: HYDRONEPHROSIS Subjective: Pt is NPO; possible IR guided nephrostomy of r. side possible today. No acute overnight events or complaints Review of Systems Constitutional: Denies: chills, weakness. EENTM: Reports: no symptoms. Cardiovascular: Denies: chest pain, palpitations. Respiratory: Reports: no symptoms. Gastrointestinal: Reports: no symptoms. Genitourinary: Denies: discharge. Musculoskeletal: Reports: no symptoms. Objective Last 24 Hrs of Vital Signs/I&O Vital Signs Date Time Temp Pulse Resp B/P B/P Pulse O2 O2 Flow FiO2 Mean Ox Delivery Rate 06/17 0711 97.4 62 20 110/70 97 06/17 0000 95 Room Air 06/16 2300 97.8 78 20 124/80 95 Room Air 06/16 2210 97.8 82 20 122/79 95 Room Air 06/16 1600 98.8 88 18 112/60 95 Room Air 06/16 1600 98.8 88 18 112/60 95 Room Air 06/16 1452 98.8 88 18 112/60 95 Room Air Intake & Output 06/17 1600 06/17 0800 06/17 0000 Intake Total 600 350 Output Total 1150 850 Balance -550 -500 Intake, IV 600 Intake, Oral 350 Output, Urine 1150 850 Patient 87.543 kg Weight Physical Exam General Appearance: Alert, Oriented X3, Cooperative, No Acute Distress HEENT: Atraumatic, PERRLA, EOMI Cardiovascular: Regular Rate, Normal S1, Normal S2 Lungs: Normal Air Movement Abdomen: Soft, No Tenderness Extremities: R. BKA Assessment/Plan Assessment: This is a 58-year-old male with past medical history of HIV on HAART, hepatitis C virus s/p Harvoni, CKD, neurogenic bladder and intermittent self-cath with BL Cr around 2.5, status post fusion surgery, left BKA for MRSA osteomyelitis initially placed in observation for left pubic ramus fracture and acute on chronic kidney injury who had a rapid response for myoclonic jerks 2/2 tetany from hypocalcemia due to severe metabolic derangements 2/2 renal failure due to obstructive uropathy. He was subsequently transferred to telemetry for further managemet of his ABDIRASHID on CKD. - PLAN: 1. Obstructive uropathy with acute on chronic kidney failure: He went for cysto and stent placement yesterday unfortuntely it was unsusccessful. Per urologist note the narrowing was unable to be bypassed; c/o malignancy?? As such pt is going to be evaluated by IR for perc nephrostomy today. Per urology note there is c/o cystitis and given his immune status and procedure planned today will give one dose of ceftriaxone prior to procedure. I obtained UA prior to procedure so we will follow up. UCX done yesterday * npo midnight * F/U UA and UCX * Re-eval for continuation of antibiotics * Straight cathing at this time * Con't EPO/sevalemer/Calcitriol * Eval by IR today * Per urology, pt will require outpt cysto and biopsy after the IR procedure. Unsure for when this might be planned. * Per nephro pt will undergo vascular evaluation for dialysis fistula placemet 2. Stercoral colitis: Pt c/o pain due to hemorrhoids and constipation. * continue Bowel REG * Prep H * tap water enema 3. Right pubic ramus fracture: Conservative mgmt * Current pain regimen being mindful of his constipation 5. HIV: Last CD4 196; Undetectable viral load. He usually goes to [facility] for his care. He currently has pancytopenia. * Con't Dolutegravir * Con't Abacavir * Monitor CBC * Given his low CD4 there is consdieration for PCP ppx. However given his renal function hesitant to start Bactrim. Will con't monitor off ppx at this time. Upon d/c will need to re-evaluate 6) Pancytopenia: stable. Likely 2/2 Hep C/HIV and CKD. His cytopenias have all overall improved * Con't procrit 7) Hx Hep C s/p harvoni and Cirrhosis: * Avoid liver toxins 8) Anxiety: * Con't Xanax FC HHD Problem List: 1. Hydronephrosis Pain Ratin Pain Location: none Pain Goal: Remain pain free Pain Plan: none Tomorrow's Labs & Rationales: cbc bep Mae Rudolph MD 06/17/18 1015: Attending MD Review Statement Attending Statement Attending MD Statement: examined this patient, discuss w/resident/PA/DEMONSTRATOR SEWING TECHNIQUES, agreed w/resident/PA/DEMONSTRATOR SEWING [employer]CHNIQUES, reviewed EMR data (avail), discussed with nursing, discussed with case mgmt, reviewed images, amended to note Attending Assessment/Plan: Patient seen and examined, states that his pain is not that well-controlled. Patient underwent cystoscopy yesterday but they found ureteral obstruction therefore procedure was not completed. Patient is scheduled for right percutaneous nephrostomy tube placement today. Patient was also found to have possible cystitis on yesterday's procedure. Vital Signs Date Time Temp Pulse Resp B/P B/P Pulse O2 O2 Flow FiO2 Mean Ox Delivery Rate 06/17 0711 97.4 62 20 110/70 97 06/17 0000 95 Room Air 06/16 2300 97.8 78 20 124/80 95 Room Air 06/16 2210 97.8 82 20 122/79 95 Room Air 06/16 1600 98.8 88 18 112/60 95 Room Air 06/16 1600 98.8 88 18 112/60 95 Room Air 06/16 1452 98.8 88 18 112/60 95 Room Air on exam; aox3, nad. cv; s1,s2, rrr resp; clear abd; soft, nt, bs+ ext; no edema Laboratory Tests 06/17 0655 Chemistry Sodium (137 - 145 mmol/L) 135 L Potassium (3.5 - 5.1 mmol/L) 4.1 Chloride (98 - 107 mmol/L) 112 H Carbon Dioxide (22 - 30 mmol/L) 16 L Anion Gap (5 - 16) 8 BUN (9 - 20 mg/dL) 36 H Creatinine (0.7 - 1.2 mg/dL) 4.7 H Estimated GFR (>60 ml/min) 13 L BUN/Creatinine Ratio (7 - 25 %) 7.7 Hematology CBC w Diff NO MAN DIFF REQ WBC (4.8 - 10.8 /CUMM) 6.6 RBC (4.70 - 6.10 /CUMM) 2.35 L Hgb (14.0 - 18.0 G/DL) 8.1 L Hct (42 - 52 %) 22.7 L MCV (80.0 - 94.0 FL) 96.4 H MCH (27.0 - 31.0 PG) 34.2 H MCHC (33.0 - 37.0 G/DL) 35.5 RDW (11.5 - 14.5 %) 18.4 H Plt Count (130 - 400 /CUMM) 127 L MPV (7.4 - 10.4 FL) 8.3 Gran % (42.2 - 75.2 %) 49.6 Lymphocytes % (20.5 - 51.1 %) 43.1 Monocytes % (1.7 - 9.3 %) 5.8 Eosinophils % (0 - 5 %) 0.9 Basophils % (0.0 - 2.0 %) 0.6 Absolute Granulocytes (1.4 - 6.5 /CUMM) 3.2 Absolute Lymphocytes (1.2 - 3.4 /CUMM) 2.8 Absolute Monocytes (0.10 - 0.60 /CUMM) 0.4 Absolute Eosinophils (0.0 - 0.7 /CUMM) 0.1 Absolute Basophils (0.0 - 0.2 /CUMM) 0 A/P: 58 y/o M with pmh sig for HIV on HAART, HCV s/p Harvoni, CKD stage 4, anxiety, ch anemia likely 2/2 to HIV and CKD and asthma, recnent fall is admitted with acute right groin pain and found to have Subtle nondisplaced fracture along the right superior pubic ramus which extends into the acetabulum addition to a minimally displaced fracture of the right inferior pubic ramus. There is no fracture of the right femur identified on CT pelvis. Pt seen by ortho and conservative Mx was recommended with PT. Patient also has acute on chronic kidney disease. Patient developed twiching movements and was tx to ICU with question of new seizure which later turned out to be some kind of clonus 2/ 2 to metabolic derrangements as evaluated by Neuro. Patient then. transferred back to telemetry. Tele was discontinued few days ago. Patient's creatinine maintained in the high range although slightly better today. Patient underwent cystoscopy yesterday but they found ureteral obstruction therefore procedure was not completed. Patient is scheduled for right percutaneous nephrostomy tube placement today. Patient was also found to have possible cystitis on yesterday's procedure. Urine culture was sent but urinalysis was not sent. We will add the urinalysis. Will also start the patient ceftriaxone and follow-up on the culture results to adjust antibiotics accordingly. Patient will go for the scheduled procedure as mentioned. Will change the frequency of oxycodone to every 4 hours. Continue to avoid nephrotoxic medications. Continue the rest of the medications. Disposition plan will depend on pending creatinine improvement post percutaneous nephrostomy tube insertion.
[2018-06-17 07:11] VITALS: BP 110/70
--- NOTE | 2018-06-17 07:23 | PN- Urology ---
Subjective Subjective: No acute distress Objective Vital Signs and I&Os Vital Signs Date Time Temp Pulse Resp B/P B/P Pulse O2 O2 Flow FiO2 Mean Ox Delivery Rate 06/17 0711 97.4 62 20 110/70 97 06/17 0000 95 Room Air 06/16 2300 97.8 78 20 124/80 95 Room Air 06/16 2210 97.8 82 20 122/79 95 Room Air 06/16 1600 98.8 88 18 112/60 95 Room Air 06/16 1600 98.8 88 18 112/60 95 Room Air 06/16 1452 98.8 88 18 112/60 95 Room Air Intake & Output 06/17 0800 06/17 0000 06/16 1600 06/16 0800 06/16 0000 06/15 1600 Intake Total 600 350 500 600 600 Output Total 1150 850 725 250 500 Balance -550 -500 -225 600 350 -500 Intake, IV 600 150 600 Intake, Oral 350 350 600 Output, Urine 1150 850 725 250 500 Patient 193 lb 190 lb Weight Weight Bed scale Measurement Method Abd: soft and non tender Genitalia: robles in place Laboratory Tests 06/17 06/16 0655 0728 Chemistry Sodium (137 - 145 mmol/L) Pending 135 L Potassium (3.5 - 5.1 mmol/L) Pending 4.3 Chloride (98 - 107 mmol/L) Pending 107 Carbon Dioxide (22 - 30 mmol/L) Pending 20 L Anion Gap (5 - 16) Pending 8 BUN (9 - 20 mg/dL) Pending 36 H Creatinine (0.7 - 1.2 mg/dL) Pending 4.9 H Estimated GFR (>60 ml/min) 12 L BUN/Creatinine Ratio (7 - 25 %) Pending 7.3 Coagulation PT (9.4 - 12.5 SEC) 12.1 INR (0.90 - 1.17) 1.11 APTT (25 - 37 SEC) 47 H Hematology CBC w Diff Pending NO MAN DIFF REQ WBC (4.8 - 10.8 /CUMM) Pending 5.3 RBC (4.70 - 6.10 /CUMM) Pending 2.89 L Hgb (14.0 - 18.0 G/DL) Pending 9.5 L Hct (42 - 52 %) Pending 27.8 L MCV (80.0 - 94.0 FL) Pending 96.0 H MCH (27.0 - 31.0 PG) Pending 33.0 H MCHC (33.0 - 37.0 G/DL) Pending 34.3 RDW (11.5 - 14.5 %) Pending 18.3 H Plt Count (130 - 400 /CUMM) Pending 143 MPV (7.4 - 10.4 FL) Pending 7.8 Gran % (42.2 - 75.2 %) 39.5 L Lymphocytes % (20.5 - 51.1 %) 49.4 Monocytes % (1.7 - 9.3 %) 7.2 Eosinophils % (0 - 5 %) 3.2 Basophils % (0.0 - 2.0 %) 0.7 Absolute Granulocytes (1.4 - 6.5 /CUMM) 2.1 Absolute Lymphocytes (1.2 - 3.4 /CUMM) 2.6 Absolute Monocytes (0.10 - 0.60 /CUMM) 0.4 Absolute Eosinophils (0.0 - 0.7 /CUMM) 0.2 Absolute Basophils (0.0 - 0.2 /CUMM) 0 Assessment/Plan Assessment/Plan Imp: 1. CKD 2. R hydronephrosis, unable to place R ureteral stent yesterday due to obstruction in R distal ureter 3. Probable UTI. Urine very cloudy yesterday and cystoscopic finding c/w cystitis Plan: 1. For R perc nephrostomy by IR 2. After above and urine is documented to be sterile will need R ureteroscopy, bladder and R ureteral bx
[2018-06-17 08:35] LABS: ABSOLUTE BASOPHIL COUNT 0 /CUMM (0.0-0.2); ABSOLUTE EOSINOPHIL COUNT 0.1 /CUMM (0.0-0.7); ABSOLUTE GRANULOCYTE CT 3.2 /CUMM (1.4-6.5); ABSOLUTE LYMPH COUNT 2.8 /CUMM (1.2-3.4); ABSOLUTE MONOCYTE COUNT 0.4 /CUMM (0.10-0.60); BASOPHIL % 0.6 % (0.0-2.0); EOSINOPHIL % 0.9 % (0-5); GRANULOCYTE % 49.6 % (42.2-75.2); MEAN CORPUSCULAR HGB 34.2 PG (27.0-31.0); MEAN CORPUSCULAR HGB CONC 35.5 G/DL (33.0-37.0); MEAN CORPUSCULAR VOLUME 96.4 FL (80.0-94.0); MEAN PLATELET VOLUME 8.3 FL (7.4-10.4); PLATELET COUNT 127 /CUMM (130-400); RBC DISTRIBUTION WIDTH 18.4 % (11.5-14.5); RED BLOOD CELL CT 2.35 /CUMM (4.70-6.10); WHITE BLOOD CELL COUNT 6.6 /CUMM (4.8-10.8)
[2018-06-17 08:53] LABS: HEMATOCRIT 22.7 % (42-52)
--- NOTE | 2018-06-17 09:10 | PN- Nephrology ---
Assessment/Plan Nephrology Assessment: 1. ABDIRASHID -Stent could not be placed because of distal obstruction of the R ureter. The urine was cloudy and a culture was sent. If this proves to be the cause of ABDIRASHID this may be reversible. 2. Chronic kidney disease. Will need to send a random protein and creatinine ratio. 3. Hypotension -much improved 4. Neuromuscular irritability resolved 5. Metabolic acidosis -maintain on po sodium bicarbonate 6. Hyperphosphatemia -improved on sevelamer 7. Profound hypocalcemia -asymptomatic and much improved on Vit D, calcitriol and calcium 8. Pancytopenia including severe anemia 9. History of hepatitis C. his complements were low on his last visit. However , he did not have any active virus in his bloodstream. Suggestion: 1. Await percutaneous nephrostomy Subjective Subjective: Patient feels okay. Awaiting percutaneous nephrostomy. He without his creatinine is a little bit better. Objective Vital Signs and I&Os Vital Signs Date Time Temp Pulse Resp B/P B/P Pulse O2 O2 Flow FiO2 Mean Ox Delivery Rate 06/17 0711 97.4 62 20 110/70 97 06/17 0000 95 Room Air 06/16 2300 97.8 78 20 124/80 95 Room Air 06/16 2210 97.8 82 20 122/79 95 Room Air 06/16 1600 98.8 88 18 112/60 95 Room Air 06/16 1600 98.8 88 18 112/60 95 Room Air 06/16 1452 98.8 88 18 112/60 95 Room Air Intake & Output 06/17 1600 06/17 0400 06/16 1600 06/16 0400 06/15 1600 06/15 0400 Intake Total 916 334 3959 600 200 240 Output Total 1150 850 725 250 700 400 Balance -550 -500 375 350 -500 -160 Intake, IV 600 750 Intake, Oral 350 350 600 200 240 Output, Urine 1150 850 725 250 700 400 Patient 193 lb 190 lb 186 lb 184 lb Weight Weight Bed scale Measurement Method Physical Exam: General: Well-developed chronically ill-appearing white male in NAD Skin: No jaundice, multiple ecchymoses HEENT: Conjunctivae pale, sclerae anicteric, left corneal haziness Neck: Without masses or thyromegaly, no supraclavicular or cervical adenopathy, Chest: Clear to auscultation and percussion Heart: Regular rate and rhythm without S3 or rub Abdomen: Soft and nontender without palpable masses or organomegaly question caput medusa? Extremities: Left BKA, no significant edema Neuro: Awake and alert, no focal findings, Current Medications: Current Medications Sig/Puma Start time Last Medication Dose Route Stop Time Status Admin Abacavir Sulfate 300 MG DAILY 06/17 900 AC PO Abacavir Sulfate 300 MG DAILY 06/03 0900 DC 06/16 PO 0939 Acetaminophen 650 MG Q6P PRN 06/16 1315 AC PO Acetaminophen 650 MG Q6P PRN 06/02 2145 DC 06/04 PO 0914 Alprazolam 0.5 MG TID 06/16 1400 AC 06/17 PO 06/23 1359 0905 Alprazolam 0.5 MG TID 06/15 1400 DC 06/16 PO 06/22 1359 0939 Bisacodyl 10 MG DAILY 06/17 09 AC MO Bisacodyl 10 MG DAILY 06/13 0900 DC 06/13 MO 0840 Calcitriol 0.25 MCG DAILY 06/17 900 AC PO Calcitriol 0.25 MCG DAILY 06/06 1058 DC 06/15 PO 1022 Ceftriaxone Sodium 1,000 MG ONCE ONE 06/17 0945 DC IV 06/17 0946 Ceftriaxone Sodium 1,000 MG ONCE ONE 06/17 0915 CAN IV 06/17 1000 Holcomb Butter/Shark 1 DEDRICK Q6-PRN PRN 06/16 1330 AC Liver Oil TOP Holcomb Butter/Shark 1 DEDRICK Q6-PRN PRN 06/07 0830 DC 06/10 Liver Oil TOP 1049 Dextrose/Sodium 1,000 ML ONCE ONE 06/15 2300 DC 06/15 Chloride IV 06/16 1219 2351 Docusate Sodium 100 MG DAILY 06/17 09 AC PO Docusate Sodium 100 MG DAILY NEEDED PRN 06/10 1045 AC 06/16 PO 1611 Docusate Sodium 100 MG DAILY 06/03 09 DC 06/15 PO 1021 Dolutegravir Sodium 50 MG DAILY 06/17 900 AC PO Dolutegravir Sodium 50 MG DAILY 06/03 09 DC 06/16 PO 0939 Epoetin Gianni 20,000 U Q168 06/19 09 AC SC Epoetin Gianni 20,000 U Q168 06/05 1400 DC 06/12 SC 0843 Ergocalciferol 50,000 IU ONCE A WEEK 06/06 1000 AC 06/13 PO 1004 Folic Acid 1 MG DAILY 06/17 900 AC PO Folic Acid 1 MG DAILY 06/03 900 DC 06/15 PO 1022 Lactulose 20 GM DAILY 06/17 900 AC PO Lactulose 20 GM DAILY 06/03 09 DC 06/15 PO 1022 Lidocaine 0 .STK-MED ONE 06/17 1117 DC .ROUTE Multivitamins 1 TAB DAILY 06/17 900 AC Therapeutic PO Multivitamins 1 TAB DAILY 06/03 900 DC 06/15 Therapeutic PO 1023 Oxycodone HCl 30 MG Q4 06/17 1000 AC PO Oxycodone HCl 40 MG Q12 06/16 2100 AC 06/17 PO 0906 Oxycodone HCl 30 MG Q6 06/16 1800 DC 06/17 PO 0614 Oxycodone HCl 30 MG Q6 06/12 1200 DC 06/16 PO 1240 Oxycodone HCl 40 MG Q12 06/11 2100 DC 06/16 PO 0939 Phenyleph/Shark Oil/ 1 SUP DAILY NEEDED PRN 06/16 1330 AC Holcomb Butter MO Phenyleph/Shark Oil/ 1 SUP DAILY NEEDED PRN 06/12 0930 DC 06/12 Holcomb Butter MO 1112 Polyethylene Glycol 17 GM DAILY 06/17 900 AC PO Polyethylene Glycol 17 GM DAILY 06/03 09 DC 06/15 PO 1022 Senna 187 MG AT BEDTIME 06/16 2100 AC 06/16 PO 2056 Senna 187 MG AT BEDTIME PRN 06/10 1045 AC PO Senna 187 MG DAILY 06/03 0900 DC 06/15 PO 1022 Sevelamer HCl 1,600 MG WM 06/16 1700 AC 06/16 PO 1611 Sevelamer HCl 1,600 MG WM 06/03 1200 DC 06/16 PO 1240 Sodium Bicarbonate 1,300 MG BID 06/16 2100 AC 06/16 PO 2056 Sodium Bicarbonate 1,300 MG BID 06/09 2100 DC 06/15 PO 2112 Sodium Chloride 1,000 ML Q13H 06/16 2300 AC 06/16 IV 2346 Thiamine HCl 100 MG DAILY 06/17 0900 AC PO Thiamine HCl 100 MG DAILY 06/03 0900 DC 06/15 PO 1024 Trazodone HCl 200 MG QPM PRN 06/16 1330 AC PO Trazodone HCl 200 MG QPM PRN 06/02 2345 DC PO Vitamin A/Vitamin D 1 DEDRICK BID 06/16 2100 AC 06/16 TOP 2056 Vitamin A/Vitamin D 1 DEDRICK BID 06/03 2100 DC 06/15 TOP 2110 Results Pertinent Lab Results: Laboratory Tests 06/17 06/16 0655 0728 Chemistry Sodium (137 - 145 mmol/L) 135 L 135 L Potassium (3.5 - 5.1 mmol/L) 4.1 4.3 Chloride (98 - 107 mmol/L) 112 H 107 Carbon Dioxide (22 - 30 mmol/L) 16 L 20 L Anion Gap (5 - 16) 8 8 BUN (9 - 20 mg/dL) 36 H 36 H Creatinine (0.7 - 1.2 mg/dL) 4.7 H 4.9 H Estimated GFR (>60 ml/min) 13 L 12 L BUN/Creatinine Ratio (7 - 25 %) 7.7 7.3 Coagulation PT (9.4 - 12.5 SEC) 12.1 INR (0.90 - 1.17) 1.11 APTT (25 - 37 SEC) 47 H Hematology CBC w Diff NO MAN DIFF REQ NO MAN DIFF REQ WBC (4.8 - 10.8 /CUMM) 6.6 5.3 RBC (4.70 - 6.10 /CUMM) 2.35 L 2.89 L Hgb (14.0 - 18.0 G/DL) 8.1 L 9.5 L Hct (42 - 52 %) 22.7 L 27.8 L MCV (80.0 - 94.0 FL) 96.4 H 96.0 H MCH (27.0 - 31.0 PG) 34.2 H 33.0 H MCHC (33.0 - 37.0 G/DL) 35.5 34.3 RDW (11.5 - 14.5 %) 18.4 H 18.3 H Plt Count (130 - 400 /CUMM) 127 L 143 MPV (7.4 - 10.4 FL) 8.3 7.8 Gran % (42.2 - 75.2 %) 49.6 39.5 L Lymphocytes % (20.5 - 51.1 %) 43.1 49.4 Monocytes % (1.7 - 9.3 %) 5.8 7.2 Eosinophils % (0 - 5 %) 0.9 3.2 Basophils % (0.0 - 2.0 %) 0.6 0.7 Absolute Granulocytes (1.4 - 6.5 /CUMM) 3.2 2.1 Absolute Lymphocytes (1.2 - 3.4 /CUMM) 2.8 2.6 Absolute Monocytes (0.10 - 0.60 /CUMM) 0.4 0.4 Absolute Eosinophils (0.0 - 0.7 /CUMM) 0.1 0.2 Absolute Basophils (0.0 - 0.2 /CUMM) 0 0 06/15 06/15 1640 0716 Chemistry Sodium (137 - 145 mmol/L) 135 L Potassium (3.5 - 5.1 mmol/L) 4.6 Chloride (98 - 107 mmol/L) 110 H Carbon Dioxide (22 - 30 mmol/L) 17 L Anion Gap (5 - 16) 8 BUN (9 - 20 mg/dL) 39 H Creatinine (0.7 - 1.2 mg/dL) 5.0 H Estimated GFR (>60 ml/min) 12 L BUN/Creatinine Ratio (7 - 25 %) 7.8 Urines Ur Random Creatinine (mg/dL) 35.7 U Random Total Protein (0 - 12 mg/dL) 138 H Protein/Creatinin Ratio (< 0.2) 3.8 H
[2018-06-17 14:55] VITALS: BP 114/68
--- NOTE | 2018-06-17 16:24 | INTERVENTIONAL RADIOLOGY RPT ---
CLINICAL HISTORY: This patient is a 58 year old Male who presents to Interventional Radiology for placement of a percutaneous nephrostomy catheter. PROCEDURES: 1. Focal ultrasound evaluation of the right kidney. 2. Right antegrade nephrostogram. 3. Placement of a right-sided 8.5-Fr percutaneous nephrostomy catheter. 4. Postprocedure tube nephrostogram. PHYSICIANS: Dr. Camilo (Attending) Dr. Dotson (Attending) MONITORING: The procedure was performed with conscious sedation and analgesia under my direct supervision. Continuous blood pressure, pulse oximetry as well as heart rate monitoring was performed by an independent registered nurse. Sedation was provided by the anesthesia department. Please refer to anesthesia notes for further details. MEDICATIONS: Lidocaine 1%, 5 mL SQ. CONTRAST: 10 mL Optiray FLUOROSCOPY TIME: 167 seconds DAP: 1790 uGym2 COMPLICATIONS: None ESTIMATED BLOOD LOSS: <5 mL SPECIMENS: None IMPLANT: None SITE MARKING: As part of the preprocedure verification policy, a site marking procedure was initiated. Due to the nature the procedure, the insertion site could not be predetermined thus invoking the policy of exemption to site laterality and marking. Insertion site marking was performed in the procedure room in conjunction with imaging confirmation. PROCEDURE NOTE: Informed consent was obtained from the patient prior to the procedure. During this process, the procedure and potential alternatives were explained along with the intended outcome and benefits. The risks of the procedure, including the possibility of an unsuccessful procedure, as well as the risk of not doing the procedure, were discussed. The patient was given the opportunity to ask questions regarding the procedure and appeared competent to make decisions. A signed consent form documenting this discussion was placed in the medical record. A time-out procedure was performed. The patient was placed prone on the fluoroscopy table. The back was prepped and draped in usual sterile fashion. All elements of maximal sterile barrier technique followed including use of cap, mask, sterile gown, sterile gloves, a sterile full body drape and hand hygiene. Also followed skin preparation with 2% chlorhexidine for cutaneous antisepsis, and sterile ultrasound preparation with sterile gel and probe cover when applicable. 1% lidocaine was used to obtain local anesthesia the skin and deeper tissues. After localizing an approach, the anticipated needle track was anesthetized with local lidocaine injection. Under ultrasound-guidance, a 21-gauge needle was advanced into a posterior lower pole calyx and position within the urinary system was confirmed with urine reflux out of the needle hub. Contrast was gently injected for antegrade nephrostogram evaluation. Next, a 0.018 inch wire was advanced through the needle into the collecting system. A Grebb access 6-Fr OD set was then advanced over the wire under fluoroscopic-guidance. A 0.035 inch stiff glide wire was advanced through the set sheath into the ureter. The sheath was removed over the wire and a 8.5-Fr pigtail catheter was advanced into the collecting system and coiled within the renal pelvis. Position was confirmed with gentle contrast injection and the tube was locked in position. The tube was secured into position with a 0 silk suture and a StatLock device. The patient tolerated the procedure well. FINDINGS: 1. Right-sided mild to moderate hydronephrosis. 2. Successful placement of a right 8.5-Fr nephrostomy catheter. IMPRESSION: Successful placement of right-sided percutaneous nephrostomy catheter. PLAN: 1. The patient was stable after the procedure and was transferred to the interventional recovery area. 2. The tube should be left to external gravity drainage via drainage bag. 3. The patient should return to interventional radiology in 8-12 weeks for routine catheter exchange.
--- NOTE | 2018-06-17 20:29 | Transfer of Care Summary ---
Hospital Course Course Hospital Course: This is a 58-year-old male with PMH of HIV on HAART, Hepatitis C virus s/p Harvoni, CKD, neurogenic bladder and intermittent self-cath with BL Cr around 2.5, status post fusion surgery, left BKA for MRSA osteomyelitis initially placed in observation for left pubic ramus fracture and acute on chronic kidney injury who had a rapid response for myoclonic jerks 2/2 tetany from hypocalcemia due to severe metabolic derangements 2/2 renal failure due to obstructive uropathy. He was transferred to ICU for metabolic acidosis due to renal failure 2/2 obstructive uropathy. It was medically managed and he was subsequently transferred to telemetry for further managemet of his ABDIRASHID on CKD. - Pt was evaluated for the following problems: 1. Obstructive uropathy with acute on chronic kidney failure: Pt found to have r. sided hydronephrosis (this was present in a previous admission) which caused ABDIRASHID on his BL CKD. He never got dialyzed but when his Cr failed to improve with conservative management he went for cysto and stent placement on 05/16 unfortuntely it was unsusccessful. Per urologist note the narrowing was unable to be bypassed; c/o malignancy?? As such pt went for nephrostomy by IR on 2017. His BL Cr seems to be around 2.5. Per urology note on 06/17 there is c/o cystitis and given his HIV status we gave one dose of ceftriaxone on 06/17. UCX done on 06/16 is growing GNR. UA on 06/17 is suspicious of UTI, however pt is afebrile. WBC is not very helpful indicator of infection in this gentleman. * F/U UA and UCX * Re-eval for continuation of antibiotics; both duration any type. * Straight cathing at this time * Con't EPO/sevalemer/Calcitriol * Per urology, pt will require outpt cysto and biopsy after the IR procedure. Unsure for when this might be planned. * Per nephro pt will undergo vascular evaluation for dialysis fistula placement * He is on renal diet. As renal fnxn improves consider changing diet. * Re-eval need for phos binders/JAKE/Nephrovites etc upon discharge 2. Stercoral colitis: Pt c/o pain due to hemorrhoids and constipation. * continue Bowel REG * Prep H * tap water enema PRN 3. Right pubic ramus fracture: Conservative mgmt * Current pain regimen being mindful of his constipation 5. HIV: Last CD4 196; Undetectable viral load. He usually goes to [facility] for his care. He currently has pancytopenia. * Con't Dolutegravir * Con't Abacavir * Monitor CBC * Given his low CD4 there is consdieration for PCP ppx. However given his renal function hesitant to start Bactrim. Will con't monitor off ppx at this time. Upon d/c will need to re-evaluate 6) Pancytopenia: stable. Likely 2/2 Hep C/HIV and CKD. His cytopenias have all overall improved * Con't procrit 7) Hx Hep C s/p harvoni and Cirrhosis: * Avoid liver toxins 8) Anxiety: * Con't Xanax FC HHD Assessment/Plan: see above
[2018-06-17 22:22] VITALS: BP 126/60
[2018-06-18 06:10] VITALS: BP 96/56
--- NOTE | 2018-06-18 07:34 | PN- Urology ---
Subjective Subjective: Patient had R perc nephrostomy placed yesterday Complains of some pain at nephrostomy insertion site, improved since yesterday Objective Vital Signs and I&Os Vital Signs Date Time Temp Pulse Resp B/P B/P Pulse O2 O2 Flow FiO2 Mean Ox Delivery Rate 06/18 0610 97.8 71 20 96/56 94 Room Air 06/17 2222 98.6 84 20 126/60 93 Room Air 06/17 1455 97.1 78 20 114/68 94 Room Air 06/17 1252 Room Air Intake & Output 06/18 0806/18 0000 06/17 1600 06/17 0806/17 0000 06/16 1600 Intake Total 150 545 600 500 500 Output Total 926 134 3286 1525 725 Balance -675 -355 -550 -1025 -225 Intake, IV 150 245 600 150 150 Intake, Oral 300 350 350 Number 0 1 Bowel Movements Output, Urine 328 699 4571 1525 725 Patient 187 lb 193 lb 190 lb Weight Weight Bed scale Measurement Method Back: R nephrostomy in place. Draining mostly clear urine Abd: non tender Genitalia: robles in place draining clear urine Urine C&S from OR is growing gram neg rods Laboratory Tests 06/18 06/17 0619 1000 Chemistry Sodium Pending Potassium Pending Chloride Pending Carbon Dioxide Pending Anion Gap Pending BUN Pending Creatinine Pending BUN/Creatinine Ratio Pending Hematology CBC w Diff Pending WBC Pending RBC Pending Hgb Pending Hct Pending MCV Pending MCH Pending MCHC Pending RDW Pending Plt Count Pending MPV Pending Urines Urine Color (YEL,AMB,STR) YEL Urine Clarity (CLEAR) HAZY H Urine pH (5.0 - 8.0) 6.0 Ur Specific [place] (1.001 - 1.035) 1.020 Urine Protein (NEG,<30 MG/DL) 30 H Urine Ketones (NEG) NEG Urine Nitrite (NEG) POS H Urine Bilirubin (NEG) NEG Urine Urobilinogen (0.1 - 1.0 EU/dl) 0.2 Ur Leukocyte Esterase (NEG) LARGE H Ur Microscopic SEDIMENT EXAMINED Urine RBC (0 - 5 /HPF) 15-25 H Urine WBC (0 - 2 /HPF) PACKD H Ur Epithelial Cells (NONE,FEW) FEW Urine Bacteria (NEG/NONE) MOD H Urine Hemoglobin (NEG) LARGE H Urine Glucose (N MG/DL) 500 H Assessment/Plan Assessment/Plan Imp: 1. CKD 2. R hydronephrosis, s/p R perc nephrostomy insertion yesterday 3. Unclear cause of obstruction of R distal ureter Plan: 1. R nephrostomy to remain in place 2. At discharge remove robles and he will go back to self intermittent cath tid 3. Adjust abx when urine culture available 4. Office f/u after discharge. Will need formal R nephrostogram to visualize urine and likely eventual R ureteroscopy to determine etiology of R ureteral obstruction
--- NOTE | 2018-06-18 07:58 | PN- Housestaff ---
Subjective Follow-up For: Hydronephrosis Subjective: Afebrile overnight. Patient is seen and examined this morning. Patient had his nephrostomy catheter placement yesterday and patient this morning reports pain from the incision site, rated as a 7 out of 10 with no radiation of the pain. Patient however denies any chest pain, palpitations, and shortness of breath. Patient scheduled to go to [facility] upon discharge and when patient's pain in under control. Review of Systems Constitutional: Reports: see HPI. Objective Last 24 Hrs of Vital Signs/I&O Vital Signs Date Time Temp Pulse Resp B/P B/P Pulse O2 O2 Flow FiO2 Mean Ox Delivery Rate 06/18 0800 97 Room Air 06/18 0610 97.8 71 20 96/56 94 Room Air 06/17 2222 98.6 84 20 126/60 93 Room Air 06/17 1455 97.1 78 20 114/68 94 Room Air 06/17 1252 Room Air Intake & Output 06/18 1600 06/18 0800 06/18 0000 Intake Total 525 150 Output Total 1380 825 Balance -855 -675 Intake, IV 525 150 Output, Urine 1380 825 Patient 187 lb Weight Physical Exam General Appearance: Alert, Oriented X3, Cooperative, No Acute Distress Skin: No Rashes Skin Temp/Moisture Exam: Warm/Dry HEENT: Atraumatic Cardiovascular: Regular Rate, Normal S1, Normal S2 Lungs: Normal Air Movement Abdomen: Soft, No Tenderness Extremities: right BKA Assessment/Plan Assessment: PERCUTANEOUS NEPHROSTOMY - Findings: 1. Right-sided mild to moderate hydronephrosis. 2. Successful placement of a right 8.5-Fr nephrostomy catheter. Impression: Successful placement of right-sided percutaneous nephrostomy catheter. Plan: 1. The patient was stable after the procedure and was transferred to the interventional recovery area. 2. The tube should be left to external gravity drainage via drainage bag. 3. The patient should return to interventional radiology in 8-12 weeks for routine catheter exchange. 58-year-old male with past medical history of HIV on HAART, hepatitis C virus s/ p Harvoni, CKD, neurogenic bladder and intermittent self-cath with BL Cr around 2.5, status post fusion surgery, left BKA for MRSA osteomyelitis initially placed in observation for left pubic ramus fracture and acute on chronic kidney injury who had a rapid response for myoclonic jerks 2/2 tetany from hypocalcemia due to severe metabolic derangements 2/2 renal failure due to obstructive uropathy. He was subsequently transferred to telemetry for further managemet of his ABDIRASHID on CKD. Patient admitted to telemetry for the following reasons: 1. Obstructive uropathy with acute on chronic kidney failure: He went for cysto and stent placement yesterday unfortuntely it was unsusccessful. Per urologist note the narrowing was unable to be bypassed; c/o malignancy?? As such pt is going to be evaluated by IR for perc nephrostomy today. Per urology note there is c/o cystitis and given his immune status and procedure planned today will give one dose of ceftriaxone prior to procedure. I obtained UA prior to procedure so we will follow up. UCX done yesterday -F/U UA and UCX; will initiate 06/19 Ciprofloxacin 500 mg BID -Re-eval for continuation of antibiotics -Straight cathing at this time -Con't EPO/sevalemer/Calcitriol -Eval by IR today -Per urology, pt will require outpt cysto and biopsy after the IR procedure. Unsure for when this might be planned. -Per nephro pt will undergo vascular evaluation for dialysis fistula placement -Successful placement of right-sided percutaneous nephrostomy catheter on -Pt. will follow up with Nephrology, Urology, and his PCP as an outpatient 2. Stercoral colitis: Pt c/o pain due to hemorrhoids and constipation. -Continue Bowel REG -Prep H -tap water enema 3. Right pubic ramus fracture: Conservative mgmt -Current pain regimen being mindful of his constipation 5. HIV: Last CD4 196; Undetectable viral load. [facility]. He currently has pancytopenia. -Con't Dolutegravir -Con't Abacavir -Monitor CBC -Given his low CD4 there is consdieration for PCP ppx. However given his renal function hesitant to start Bactrim. Will con't monitor off ppx at this time. Upon d/c will need to re-evaluate 6) Pancytopenia: stable. Likely 2/2 Hep C/HIV and CKD. His cytopenias have all overall improved -Continue procrit 7) Hx Hep C s/p harvoni and Cirrhosis: -Avoid liver toxins 8) Anxiety: -Continue Xanax Code Status: Full Code HHD Problem List: 1. Hydronephrosis Pain Ratin Pain Location: right flank pain near incision site Pain Goal: Pain 7 or less Pain Plan: prn meds Tomorrow's Labs & Rationales: routine
[2018-06-18 08:21] LABS: ABSOLUTE BASOPHIL COUNT 0 /CUMM (0.0-0.2); ABSOLUTE EOSINOPHIL COUNT 0.1 /CUMM (0.0-0.7); ABSOLUTE GRANULOCYTE CT 2.4 /CUMM (1.4-6.5); ABSOLUTE LYMPH COUNT 2.2 /CUMM (1.2-3.4); ABSOLUTE MONOCYTE COUNT 0.4 /CUMM (0.10-0.60); BASOPHIL % 0.6 % (0.0-2.0); EOSINOPHIL % 2.1 % (0-5); HEMATOCRIT 23.8 % (42-52); MEAN CORPUSCULAR HGB 33.2 PG (27.0-31.0); MEAN CORPUSCULAR HGB CONC 34.6 G/DL (33.0-37.0); MEAN CORPUSCULAR VOLUME 96.1 FL (80.0-94.0); MEAN PLATELET VOLUME 7.9 FL (7.4-10.4); RBC DISTRIBUTION WIDTH 18.8 % (11.5-14.5); RED BLOOD CELL CT 2.48 /CUMM (4.70-6.10); WHITE BLOOD CELL COUNT 5.1 /CUMM (4.8-10.8)
[2018-06-18 09:42] LABS: PLATELET COUNT 117 /CUMM (130-400)
--- NOTE | 2018-06-18 10:38 | Discharge Summary ---
See Addendum Visit Information Visit Dates Admission Date: 06/03/18 Discharge Date: 06/20/18 Hospital Course Course Attending Physician: Ronni DEL VALLE,Mae Primary Care Physician: Rashawn DEL VALLE,[facility] Course: This is a 58-year-old male with PMH of HIV on HAART, Hepatitis C virus s/p Harvoni, CKD, neurogenic bladder and intermittent self-cath with BL Cr around 2.5, status post fusion surgery, left BKA for MRSA osteomyelitis initially placed in observation for left pubic ramus fracture and acute on chronic kidney injury who had a rapid response for myoclonic jerks 2/2 tetany from hypocalcemia due to severe metabolic derangements 2/2 renal failure due to obstructive uropathy. He was transferred to ICU for metabolic acidosis due to renal failure 2/2 obstructive uropathy. It was medically managed and he was subsequently transferred to telemetry for further managemet of his ABDIRASHID on CKD. - Pt was evaluated for the following problems: 1. Obstructive uropathy with acute on chronic kidney failure: Pt found to have r. sided hydronephrosis (this was present in a previous admission) which caused ABDIRASHID on his BL CKD. He never got dialyzed but when his Cr failed to improve with conservative management he went for cysto and stent placement on 05/16 unfortuntely it was unsusccessful. Per urologist note the narrowing was unable to be bypassed; c/o malignancy?? As such pt went for nephrostomy by IR on 2017. Patient will require Will need formal R nephrostogram to visualize and likely eventual R ureteroscopy to determine etiology of R ureteral obstruction His BL Cr seems to be around 2.5. Creatinine upon discharge was 4.6 after patient received more fluids. Nephrostomy tube was checked and it was repositioned. Per urology note on 06/17 there is c/o cystitis and given his HIV status we gave one dose of ceftriaxone on 09/19. urine culture is growing Escherichia coli. We will treat him with AUGMENTIN FOR TOTAL 14 DAYS * Straight cathing 3 times a day * Con't EPO/sevalemer/Calcitriol * Per urology, pt will require outpt cysto and biopsy after the IR procedure. Unsure for when this might be planned. * Per nephro pt will undergo vascular evaluation for dialysis fistula placement * He is on renal diet. As renal fnxn improves consider changing diet. * Re-eval need for phos binders/JAKE/Nephrovites etc upon discharge. The day prior to discharge patient accidentally pulled out his right nephrostomy tube. He again went down to interventional radiology and got it repositioned. There is mild serous discharge from the tube which is kind of expected postoperatively. Patient right nephrostomy tube was rechecked by interventional radiology on 19 June and that was repositioned. On the day of discharge patient did not have any abnormal serious discharge from the right nephrostomy tube. Patient will go to short-term rehab and follow-up with interventional radiology. 2. Stercoral colitis: Pt c/o pain due to hemorrhoids and constipation. * continue Bowel REG 3. Right pubic ramus fracture: Conservative mgmt * Current pain regimen being mindful of his constipation 5. HIV: Last CD4 196; Undetectable viral load. He usually goes to [facility] care. He currently has pancytopenia. * Con't Dolutegravir * Con't Abacavir * Monitor CBC * Given his low CD4 there is consdieration for PCP ppx. However given his renal function hesitant to start Bactrim. Will con't monitor off ppx at this time. Upon d/c will need to re-evaluate 6) Pancytopenia: stable. Likely 2/2 Hep C/HIV and CKD. His cytopenias have all overall improved * Con't procrit 7) Hx Hep C s/p harvoni and Cirrhosis: * Avoid liver toxins 8) Anxiety: * Con't Xanax plan to go to short-term rehabilitation and follow with nephrology/urology/ PT advised to do CBCs/BEP in 4 days. Patient needs to be seen back in interventional radiology for tube exchange In 3 months Complications: AK I on CKD Right hydroureteronephrosis status post right nephrostomy tube placement Allergies: Coded Allergies: erythromycin base (UNKNOWN 12/02/16) Significant Procedures: Right-sided nephrostomy tube placement Disposition Summary Disposition Principal Diagnosis: Obstructive uropathy with ABDIRASHID on CKD stage 3-4 Additional Diagnosis: Right pubic ramus fracture. Constipation. Myoclonic jerking movements 2/2 to metabolic derrangements. Discharge Disposition: SNF Discharge Instructions General Discharge Information Code Status: Full Code Patient's Diet: Renal diet Patient's Activity: as Tolerated Follow-Up Instructions/Appts: All of urology/nephrology/primary care physician Medications at Discharge Discharge Medications: Stop taking the following medications: Potassium Chloride (Potassium Chloride) 20 MEQ TAB.ER.PRT ORAL DAILY Qty = 3 Sodium Bicarbonate (Sodium Bicarbonate) 650 MG TABLET ORAL EVERY SIX HOURS Qty = 240 Continue taking these medications: Oxycodone HCl (Oxycodone HCl) 30 MG TABLET 1 Tablet ORAL Q4-6H as needed for PAIN Comments: Last Taken:06/20/18 Time:09;00AM Abacavir Sulfate (Abacavir) 300 MG TABLET 1 Tablet ORAL DAILY Comments: Last Taken:06/20/18 Time:09;00AM Oxycodone HCl (Oxycontin) 40 MG TAB.ER.12H 1 Tablet ORAL TWICE DAILY Comments: NOT GIVEN AT THE HOSPITAL Dolutegravir Sodium (Tivicay) 50 MG TABLET 1 Tablet ORAL DAILY Comments: Last Taken: 06/20/18 Time: 08;00AM Alprazolam (Xanax) 0.5 MG TABLET 1 Tablet ORAL THREE TIMES DAILY Qty = 90 Comments: Last Taken: 06/20/18 Time: 09;00AM Trazodone HCl (Trazodone HCl) 100 MG TABLET 200 Milligram ORAL TAKE AT BEDTIME as needed for SLEEP Comments: NOT GIVEN IN HOSPITAL Albuterol Sulfate (Proair Hfa) 90 MCG HFA.AER.AD 2 Puff Inhale through mouth EVERY 4-6 HOURS NEEDED as needed for ASTHMA Comments: NOT GIVEN IN HOSPITAL Calcium Carbonate/Vitamin D3 (Calcium 500 + D Tablet) (Unknown Strength) TABLET Unknown Dose ORAL DAILY Comments: NOT GIVEN AT THE HOSPITAL Gabapentin (Neurontin) 300 MG CAPSULE 1 Capsule ORAL TWICE DAILY Comments: NOT GIVEN AT THE HOSPITAL Lactulose (Lactulose) 10 GRAM/15 ML SOLUTION 30 Milliliters ORAL Every Morning Comments: Last Taken:06/20/18 Time:09;00AN Multiple Vitamin (Multivitamins) 1 EACH TABLET 1 Tablet ORAL DAILY Comments: Last Taken:06/20/18 Time:09;00AM Dextran 70/Hypromellose (Artificial Tears) 1 EACH DROPERETTE 1 Drop Left Eye TWICE DAILY Comments: NOT GIVEN IN HOSPITAL Prednisolone Acetate (Omnipred) 1 % DROPS.SUSP 1 Drop Left Eye 4 TIMES A DAY Comments: NOT GIVEN IN HOSPITAL Folic Acid (Folic Acid) 1 MG TABLET 1 Milligram ORAL DAILY Qty = 30 Comments: NOT GIVEN IN HOSPITAL Thiamine HCl (Vitamin B-1) 100 MG TABLET 100 Milligram ORAL DAILY Qty = 30 Comments: Last Taken:06/20/18 Time:09;00AM Start taking the following new medications: Augmentin (Augmentin 500-125 Tablet) 500 MG-125 MG TABLET 500 Milligram ORAL EVERY 12 HOURS Qty = 19 No Refills Comments: Last Taken:06/20/18 Time:09;00AM Sodium Bicarbonate (Sodium Bicarbonate) 650 MG TABLET 1 Tablet ORAL TWICE DAILY Qty = 120 No Refills Comments: Last Taken:06/20/18 Time:09;00AM Docusate Sodium (Docusate Sodium) 100 MG CAPSULE 100 Milligram ORAL DAILY Qty = 30 No Refills Comments: Last Taken:06/19/18 Time:09;00AM Polyethylene Glycol 3350 (Miralax) 17 GRAM/DOSE POWDER 17 Gram ORAL DAILY Qty = 30 No Refills Comments: Last Taken:06/20/18 Time:09;00 AM Sevelamer HCl (Renagel) 800 MG TABLET 2 Tablet ORAL WITH MEALS Qty = 28 No Refills Instructions: Please take as directed with meals. Copies To: Rashawn DEL VALLE,Radha; Lolis DEL VALLE,Layton Del Toro; Yris DEL VALLE,Jordon Nelson
--- NOTE | 2018-06-18 11:22 | PN- Att Addend ---
Attending Addendum Attending Brief Note Patient seen and examined, he is complaining of too much pain overall. He also has pain at the nephrostomy site. Creatinine remained at 4.7 range. Urine culture results are still pending. Patient growing gram-negative rods. Vital Signs Date Time Temp Pulse Resp B/P B/P Pulse O2 O2 Flow FiO2 Mean Ox Delivery Rate 06/18 0800 97 Room Air 06/18 0610 97.8 71 20 96/56 94 Room Air 06/17 2222 98.6 84 20 126/60 93 Room Air 06/17 1455 97.1 78 20 114/68 94 Room Air 06/17 1252 Room Air on exam; aox3, nad. cv; s1, s2 rrr resp; clear abd; soft, nt, bs+ skin; + nephrostomy tube on right back. Laboratory Tests 06/18 06 Chemistry Sodium (137 - 145 mmol/L) 140 Potassium (3.5 - 5.1 mmol/L) 3.8 Chloride (98 - 107 mmol/L) 111 H Carbon Dioxide (22 - 30 mmol/L) 16 L Anion Gap (5 - 16) 13 BUN (9 - 20 mg/dL) 34 H Creatinine (0.7 - 1.2 mg/dL) 4.7 H Estimated GFR (>60 ml/min) 13 L BUN/Creatinine Ratio (7 - 25 %) 7.2 Hematology CBC w Diff NO MAN DIFF REQ WBC (4.8 - 10.8 /CUMM) 5.1 RBC (4.70 - 6.10 /CUMM) 2.48 L Hgb (14.0 - 18.0 G/DL) 8.2 L Hct (42 - 52 %) 23.8 L MCV (80.0 - 94.0 FL) 96.1 H MCH (27.0 - 31.0 PG) 33.2 H MCHC (33.0 - 37.0 G/DL) 34.6 RDW (11.5 - 14.5 %) 18.8 H Plt Count (130 - 400 /CUMM) 117 L MPV (7.4 - 10.4 FL) 7.9 Gran % (42.2 - 75.2 %) 47.0 Lymphocytes % (20.5 - 51.1 %) 43.3 Monocytes % (1.7 - 9.3 %) 7.0 Eosinophils % (0 - 5 %) 2.1 Basophils % (0.0 - 2.0 %) 0.6 Absolute Granulocytes (1.4 - 6.5 /CUMM) 2.4 Absolute Lymphocytes (1.2 - 3.4 /CUMM) 2.2 Absolute Monocytes (0.10 - 0.60 /CUMM) 0.4 Absolute Eosinophils (0.0 - 0.7 /CUMM) 0.1 Absolute Basophils (0.0 - 0.2 /CUMM) 0 A/P: 58 y/o M with pmh sig for HIV on HAART, HCV s/p Harvoni, CKD stage 4, anxiety, ch anemia likely 2/2 to HIV and CKD and asthma, recnent fall is admitted with acute right groin pain and found to have Subtle nondisplaced fracture along the right superior pubic ramus which extends into the acetabulum addition to a minimally displaced fracture of the right inferior pubic ramus. There is no fracture of the right femur identified on CT pelvis. Pt seen by ortho and conservative Mx was recommended with PT. Patient also has acute on chronic kidney disease. Patient developed twiching movements and was tx to ICU with question of new seizure which later turned out to be some kind of clonus 2/ 2 to metabolic derrangements as evaluated by Neuro. Patient then. transferred back to telemetry. Tele was discontinued few days ago. Patient is status post right percutaneous nephrostomy tube placement. Creatinine remains in the 4.7 range today. We are waiting for urine cultures to be finalized. Patient seen by urology and from their standpoint he can be discharged. I spoke with investigator also. Expect creatinine improving over the next few days. Patient is complaining of too much pain at the nephrostomy site. We are giving extra dose of narcotic. If pain is controlled better than he can likely be discharged to rehab. He will need a follow-up with nephro, urology and a repeat blood work checked on next Friday or Friday. Continue the rest of the management.
--- NOTE | 2018-06-18 13:32 | PN- Nephrology ---
Assessment/Plan Nephrology Assessment: 1. ABDIRASHID -Stent could not be placed because of distal obstruction of the R ureter. The urine was cloudy and a culture was sent which is now growing a gram- negative vipin. The renal function has not changed this is a bit disappointing if this proves to be the cause of ABDIRASHID this may be reversible. 2. Chronic kidney disease. He was nephrotic 3. Hypotension -much improved 4. Neuromuscular irritability resolved 5. Metabolic acidosis -maintain on po sodium bicarbonate 6. Hyperphosphatemia -improved on sevelamer 7. Profound hypocalcemia -asymptomatic and much improved on Vit D, calcitriol and calcium 8. Pancytopenia including severe anemia 9. History of hepatitis C. his complements were low on his last visit. However , he did not have any active virus in his bloodstream. Suggestion: 1. Await I&D of bacteria 2. If discharged, would favor checking BUN/creatinine along with electrolytes early next week 3. Although the issues of renal replacement therapy were raised with regards at least to preparation, given the fact he is an infection at this point that would not be advisable to create an access. Subjective Subjective: Patient was sleeping when I enter the room. Still having pain at nephrostomy site. Objective Vital Signs and I&Os Vital Signs Date Time Temp Pulse Resp B/P B/P Pulse O2 O2 Flow FiO2 Mean Ox Delivery Rate 06/18 0800 97 Room Air 06/18 0610 97.8 71 20 96/56 94 Room Air 06/17 2222 98.6 84 20 126/60 93 Room Air 06/17 1455 97.1 78 20 114/68 94 Room Air Intake & Output 06/18 1600 06/18 0400 06/17 1600 06/17 0400 06/16 1600 06/16 0400 Intake Total 318 620 5615 500 1100 600 Output Total 6437 614 6228 1525 725 250 Balance -855 -675 -905 -1025 375 350 Intake, IV 525 150 845 150 750 Intake, Oral 300 350 350 600 Number 0 1 Bowel Movements Output, Urine 7205 895 8180 1525 725 250 Patient 187 lb 193 lb 190 lb 186 lb Weight Weight Bed scale Measurement Method Current Medications: Current Medications Sig/Puma Start time Last Medication Dose Route Stop Time Status Admin Abacavir Sulfate 300 MG DAILY 06/17 0900 AC 06/18 PO 0834 Acetaminophen 650 MG Q6P PRN 06/16 1315 AC PO Alprazolam 0.5 MG TID 06/16 1400 AC 06/18 PO 06/23 1359 0832 Bisacodyl 10 MG DAILY 06/17 09 AC [place] Calcitriol 0.25 MCG DAILY 06/17 0900 AC 06/18 PO 0833 Ceftriaxone Sodium 1,000 MG ONCE ONE 06/18 1045 DC 06/18 IV 06/18 1046 1122 [place] Butter/Shark 1 DEDRICK Q6-PRN PRN 06/16 1330 AC Liver Oil TOP Docusate Sodium 100 MG DAILY 06/17 0900 AC 06/18 PO 0830 Docusate Sodium 100 MG DAILY NEEDED PRN 06/10 1045 AC 06/16 PO 1611 Dolutegravir Sodium 50 MG DAILY 06/17 09 AC 06/18 PO 0831 Epoetin Gianni 20,000 U Q168 06/19 09 AC SC Ergocalciferol 50,000 IU ONCE A WEEK 06/06 1000 AC 06/13 PO 1004 Folic Acid 1 MG DAILY 06/17 09 AC 06/18 PO 0831 Hydromorphone HCl 2 MG ONCE PRN 06/17 1430 DC 06/17 IV 1441 Lactulose 20 GM DAILY 06/17 09 AC 06/18 PO 0832 Morphine Sulfate 0 .STK-MED ONE 06/17 1916 DC .ROUTE Morphine Sulfate 2 MG ONCE ONE 06/17 1900 DC 06/17 IV 06/17 190 191 Multivitamins 1 TAB DAILY 06/17 09 AC 06/18 Therapeutic PO 0830 Oxycodone HCl 0 .STK-MED ONE 06/18 1051 DC PO Oxycodone HCl 10 MG ONCE ONE 06/18 1045 DC 06/18 PO 06/18 1046 1051 Oxycodone HCl 30 MG Q4 06/17 1000 AC 06/18 PO 1049 Oxycodone HCl 40 MG Q12 06/16 2100 AC 06/18 PO 0832 Phenyleph/Shark Oil/ 1 SUP DAILY NEEDED PRN 06/16 1330 AC [place] Butter [place] Polyethylene Glycol 17 GM DAILY 06/17 0900 AC 06/18 PO 0832 Senna 187 MG AT BEDTIME 06/16 2100 AC 06/17 PO 2117 Senna 187 MG AT BEDTIME PRN 06/10 1045 AC PO Sevelamer HCl 1,600 MG WM 06/16 1700 AC 06/18 PO 1252 Sodium Bicarbonate 1,300 MG BID 06/16 2100 AC 06/18 PO 0831 Sodium Chloride 1,000 ML Q13H 06/16 2300 DC 06/17 IV 2108 Thiamine HCl 100 MG DAILY 06/17 0900 AC 06/18 PO 0830 Trazodone HCl 200 MG QPM PRN 06/16 1330 AC PO Vitamin A/Vitamin D 1 DEDRICK BID 06/16 2100 AC 06/18 TOP 0833 Results Pertinent Lab Results: Laboratory Tests 06/18 06/17 0619 1000 Chemistry Sodium (137 - 145 mmol/L) 140 Potassium (3.5 - 5.1 mmol/L) 3.8 Chloride (98 - 107 mmol/L) 111 H Carbon Dioxide (22 - 30 mmol/L) 16 L Anion Gap (5 - 16) 13 BUN (9 - 20 mg/dL) 34 H Creatinine (0.7 - 1.2 mg/dL) 4.7 H Estimated GFR (>60 ml/min) 13 L BUN/Creatinine Ratio (7 - 25 %) 7.2 Hematology CBC w Diff NO MAN DIFF REQ WBC (4.8 - 10.8 /CUMM) 5.1 RBC (4.70 - 6.10 /CUMM) 2.48 L Hgb (14.0 - 18.0 G/DL) 8.2 L Hct (42 - 52 %) 23.8 L MCV (80.0 - 94.0 FL) 96.1 H MCH (27.0 - 31.0 PG) 33.2 H MCHC (33.0 - 37.0 G/DL) 34.6 RDW (11.5 - 14.5 %) 18.8 H Plt Count (130 - 400 /CUMM) 117 L MPV (7.4 - 10.4 FL) 7.9 Gran % (42.2 - 75.2 %) 47.0 Lymphocytes % (20.5 - 51.1 %) 43.3 Monocytes % (1.7 - 9.3 %) 7.0 Eosinophils % (0 - 5 %) 2.1 Basophils % (0.0 - 2.0 %) 0.6 Absolute Granulocytes (1.4 - 6.5 /CUMM) 2.4 Absolute Lymphocytes (1.2 - 3.4 /CUMM) 2.2 Absolute Monocytes (0.10 - 0.60 /CUMM) 0.4 Absolute Eosinophils (0.0 - 0.7 /CUMM) 0.1 Absolute Basophils (0.0 - 0.2 /CUMM) 0 Urines Urine Color (YEL,AMB,STR) YEL Urine Clarity (CLEAR) HAZY H Urine pH (5.0 - 8.0) 6.0 Ur Specific [place] (1.001 - 1.035) 1.020 Urine Protein (NEG,<30 MG/DL) 30 H Urine Ketones (NEG) NEG Urine Nitrite (NEG) POS H Urine Bilirubin (NEG) NEG Urine Urobilinogen (0.1 - 1.0 EU/dl) 0.2 Ur Leukocyte Esterase (NEG) LARGE H Ur Microscopic SEDIMENT EXAMINED Urine RBC (0 - 5 /HPF) 15-25 H Urine WBC (0 - 2 /HPF) PACKD H Ur Epithelial Cells (NONE,FEW) FEW Urine Bacteria (NEG/NONE) MOD H Urine Hemoglobin (NEG) LARGE H Urine Glucose (N MG/DL) 500 H 06/17 06/16 0655 0728 Chemistry Sodium (137 - 145 mmol/L) 135 L 135 L Potassium (3.5 - 5.1 mmol/L) 4.1 4.3 Chloride (98 - 107 mmol/L) 112 H 107 Carbon Dioxide (22 - 30 mmol/L) 16 L 20 L Anion Gap (5 - 16) 8 8 BUN (9 - 20 mg/dL) 36 H 36 H Creatinine (0.7 - 1.2 mg/dL) 4.7 H 4.9 H Estimated GFR (>60 ml/min) 13 L 12 L BUN/Creatinine Ratio (7 - 25 %) 7.7 7.3 Coagulation PT (9.4 - 12.5 SEC) 12.1 INR (0.90 - 1.17) 1.11 APTT (25 - 37 SEC) 47 H Hematology CBC w Diff NO MAN DIFF REQ NO MAN DIFF REQ WBC (4.8 - 10.8 /CUMM) 6.6 5.3 RBC (4.70 - 6.10 /CUMM) 2.35 L 2.89 L Hgb (14.0 - 18.0 G/DL) 8.1 L 9.5 L Hct (42 - 52 %) 22.7 L 27.8 L MCV (80.0 - 94.0 FL) 96.4 H 96.0 H MCH (27.0 - 31.0 PG) 34.2 H 33.0 H MCHC (33.0 - 37.0 G/DL) 35.5 34.3 RDW (11.5 - 14.5 %) 18.4 H 18.3 H Plt Count (130 - 400 /CUMM) 127 L 143 MPV (7.4 - 10.4 FL) 8.3 7.8 Gran % (42.2 - 75.2 %) 49.6 39.5 L Lymphocytes % (20.5 - 51.1 %) 43.1 49.4 Monocytes % (1.7 - 9.3 %) 5.8 7.2 Eosinophils % (0 - 5 %) 0.9 3.2 Basophils % (0.0 - 2.0 %) 0.6 0.7 Absolute Granulocytes (1.4 - 6.5 /CUMM) 3.2 2.1 Absolute Lymphocytes (1.2 - 3.4 /CUMM) 2.8 2.6 Absolute Monocytes (0.10 - 0.60 /CUMM) 0.4 0.4 Absolute Eosinophils (0.0 - 0.7 /CUMM) 0.1 0.2 Absolute Basophils (0.0 - 0.2 /CUMM) 0 0 09/17 1640 Urines Ur Random Creatinine (mg/dL) 35.7 U Random Total Protein (0 - 12 mg/dL) 138 H Protein/Creatinin Ratio (< 0.2) 3.8 H
[2018-06-18 14:22] VITALS: BP 103/58
[2018-06-18 22:00] VITALS: BP 130/88
[2018-06-19 02:12] VITALS: BP 100/60
--- NOTE | 2018-06-19 07:37 | PN- Housestaff ---
Kel Renner 06/19/18 0737: Subjective Follow-up For: Hydronephrosis Subjective: Afebrile overnight. Patient is seen and examined this morning. Patient states he was having some drainage from his nephrostomy incision site and the nurse came replaced the dressing and since then the drainage has almost subsided. Patient rates his pain as 7 out of 10 today, originating from the nephrostomy site. Patient otherwise denies any chest pain, palpitations, shortness of breath, fevers, chills, and fatigue. Review of Systems Constitutional: Reports: see HPI. Objective Last 24 Hrs of Vital Signs/I&O Vital Signs Date Time Temp Pulse Resp B/P B/P Pulse O2 O2 Flow FiO2 Mean Ox Delivery Rate 06/19 0212 80 16 100/60 96 Room Air 06/18 2200 98.4 78 20 130/88 96 Room Air 06/18 1422 98.2 74 16 103/58 97 Room Air 06/18 0800 97 Room Air Intake & Output 06/19 0800 06/19 0000 06/18 1600 Intake Total 360 120 705 Output Total 1500 2500 450 Balance -1140 -2380 255 Intake, IV 225 Intake, Oral 360 120 480 Number 1 Bowel Movements Output, Urine 1500 2500 450 Patient 190 lb Weight Weight Bed scale Measurement Method Physical Exam General Appearance: Alert, Oriented X3, Cooperative, No Acute Distress, Mcgregor draining bloody urine/hematuria Skin: No Rashes, No Breakdown Skin Temp/Moisture Exam: Warm/Dry HEENT: Atraumatic Neck: Supple, No JVD Cardiovascular: Regular Rate, Normal S1, Normal S2 Lungs: Normal Air Movement Neurological: Normal Speech Extremities: right-sided nephrostomy Assessment/Plan Assessment: PERCUTANEOUS NEPHROSTOMY - Findings: 1. Right-sided mild to moderate hydronephrosis. 2. Successful placement of a right 8.5-Fr nephrostomy catheter. Impression: Successful placement of right-sided percutaneous nephrostomy catheter. Plan: 1. The patient was stable after the procedure and was transferred to the interventional recovery area. 2. The tube should be left to external gravity drainage via drainage bag. 3. The patient should return to interventional radiology in 8-12 weeks for routine catheter exchange. 58-year-old male with past medical history of HIV on HAART, hepatitis C virus s/ p Harvoni, CKD, neurogenic bladder and intermittent self-cath with BL Cr around 2.5, status post fusion surgery, left BKA for MRSA osteomyelitis initially placed in observation for left pubic ramus fracture and acute on chronic kidney injury who had a rapid response for myoclonic jerks 2/2 tetany from hypocalcemia due to severe metabolic derangements 2/2 renal failure due to obstructive uropathy. He was subsequently transferred to telemetry for further managemet of his ABDIRASHID on CKD. Patient admitted to telemetry for the following reasons: 1. Obstructive uropathy with acute on chronic kidney failure: He went for cysto and stent placement yesterday unfortuntely it was unsusccessful. Per urologist note the narrowing was unable to be bypassed; c/o malignancy?? As such pt is going to be evaluated by IR for perc nephrostomy today. Per urology note there is c/o cystitis and given his immune status and procedure planned today will give one dose of ceftriaxone prior to procedure. I obtained UA prior to procedure so we will follow up. UCX done yesterday -F/U UA and UCX; Urine culture grew E.Coli and will treat with Augmentin 875 mg q12 h -Re-eval for continuation of antibiotics -Straight cathing at this time -Con't EPO/sevalemer/Calcitriol -Eval by IR today -Per urology, pt will require outpt cysto and biopsy after the IR procedure. Unsure for when this might be planned. -Per nephro pt will undergo vascular evaluation for dialysis fistula placement -Successful placement of right-sided percutaneous nephrostomy catheter on ; patient had reevaluation of his Nephrostomy tube on 06/19 due to some leakage around the incision site -Pt. had some leakage from his neprostomy site, Urology will follow up to reassess placement -Pt. will follow up with Nephrology, Urology, and his PCP as an outpatient 2. Stercoral colitis: Pt c/o pain due to hemorrhoids and constipation. -Continue Bowel REG -Prep H -tap water enema 3. Right pubic ramus fracture: Conservative mgmt -Current pain regimen being mindful of his constipation 5. HIV: Last CD4 196; Undetectable viral load. He usually goes to [facility] for [facility]. He currently has pancytopenia. -Con't Dolutegravir -Con't Abacavir -Monitor CBC -Given his low CD4 there is consdieration for PCP ppx. However given his renal function hesitant to start Bactrim. Will con't monitor off ppx at this time. Upon d/c will need to re-evaluate 6) Pancytopenia: stable. Likely 2/2 Hep C/HIV and CKD. His cytopenias have all overall improved -Continue procrit 7) Hx Hep C s/p harvoni and Cirrhosis: -Avoid liver toxins 8) Anxiety: -Continue Xanax Code Status: Full Code Renal Dialysis Diet Problem List: 1. Hydronephrosis Pain Ratin Pain Location: right sided flank near nephrostomy site Pain Goal: Pain 7 or less Pain Plan: prn meds Tomorrow's Labs & Rationales: routine Ronni DEL VALLE,Mae 06/19/18 1118: Attending MD Review Statement Attending Statement Attending MD Statement: examined this patient, discuss w/resident/PA/SAW MAKER, agreed w/resident/PA/SAW MAKER, reviewed EMR data (avail), discussed with nursing, discussed with case mgmt, reviewed images, amended to note Attending Assessment/Plan: Patient seen and examined, doing okay. His right nephrostomy tube was leaking and it was soaking serosanguineous fluid on the dressing. He also had some streaks of blood in the Mcgregor catheter. Vital Signs Date Time Temp Pulse Resp B/P B/P Pulse O2 O2 Flow FiO2 Mean Ox Delivery Rate 06/19 0212 80 16 100/60 96 Room Air 06/18 2200 98.4 78 20 130/88 96 Room Air 06/18 1422 98.2 74 16 103/58 97 Room Air on exam; aox3, nad. cv; s1,s2, rrr resp: clear abd; soft, nt, bs+ skin: the right nephrostomy tube Laboratory Tests 06/19 0628 Chemistry Sodium (137 - 145 mmol/L) 138 Potassium (3.5 - 5.1 mmol/L) 4.3 Chloride (98 - 107 mmol/L) 111 H Carbon Dioxide (22 - 30 mmol/L) 16 L Anion Gap (5 - 16) 10 BUN (9 - 20 mg/dL) 35 H Creatinine (0.7 - 1.2 mg/dL) 5.1 *H Estimated GFR (>60 ml/min) 12 L BUN/Creatinine Ratio (7 - 25 %) 6.9 L Calcium (8.4 - 10.2 mg/dL) 8.0 L Magnesium (1.6 - 2.3 mg/dL) 2.3 Hematology CBC w Diff NO MAN DIFF REQ WBC (4.8 - 10.8 /CUMM) 7.7 RBC (4.70 - 6.10 /CUMM) 2.72 L Hgb (14.0 - 18.0 G/DL) 9.4 L Hct (42 - 52 %) 26.5 L MCV (80.0 - 94.0 FL) 97.4 H MCH (27.0 - 31.0 PG) 34.7 H MCHC (33.0 - 37.0 G/DL) 35.7 RDW (11.5 - 14.5 %) 19.0 H Plt Count (130 - 400 /CUMM) 134 MPV (7.4 - 10.4 FL) 7.7 Gran % (42.2 - 75.2 %) 44.7 Lymphocytes % (20.5 - 51.1 %) 46.0 Monocytes % (1.7 - 9.3 %) 6.8 Eosinophils % (0 - 5 %) 2.2 Basophils % (0.0 - 2.0 %) 0.3 Absolute Granulocytes (1.4 - 6.5 /CUMM) 3.5 Absolute Lymphocytes (1.2 - 3.4 /CUMM) 3.6 H Absolute Monocytes (0.10 - 0.60 /CUMM) 0.5 Absolute Eosinophils (0.0 - 0.7 /CUMM) 0.2 Absolute Basophils (0.0 - 0.2 /CUMM) 0 A/P: 58 y/o M with pmh sig for HIV on HAART, HCV s/p Harvoni, CKD stage 4, anxiety, ch anemia likely 2/2 to HIV and CKD and asthma, recnent fall is admitted with acute right groin pain and found to have Subtle nondisplaced fracture along the right superior pubic ramus which extends into the acetabulum addition to a minimally displaced fracture of the right inferior pubic ramus. There is no fracture of the right femur identified on CT pelvis. Pt seen by ortho and conservative Mx was recommended with PT. Patient also has acute on chronic kidney disease. Patient developed twiching movements and was tx to ICU with question of new seizure which later turned out to be some kind of clonus 2/ 2 to metabolic derrangements as evaluated by Neuro. Patient then. transferred back to telemetry. Tele was discontinued few days ago. Patient is status post right percutaneous nephrostomy tube placement. The dressing on the nephrostomy tube was soaked with serosanguineous fluid. Patient still had a Mcgregor catheter which was draining some streaks of blood also. This was discussed with Dr. Danielle from urology and he said that this was okay. H& H remain stable. Creatinine is slightly worse today. Nephrology wants to give more IV fluids. Interventional radiologist was contacted and they recommend doing the fluoroscopy for this nephrostomy tube. Patient will not be leaving today. Continue the rest of the management.
[2018-06-19 08:03] LABS: ABSOLUTE BASOPHIL COUNT 0 /CUMM (0.0-0.2); ABSOLUTE EOSINOPHIL COUNT 0.2 /CUMM (0.0-0.7); ABSOLUTE GRANULOCYTE CT 3.5 /CUMM (1.4-6.5); ABSOLUTE LYMPH COUNT 3.6 /CUMM (1.2-3.4); ABSOLUTE MONOCYTE COUNT 0.5 /CUMM (0.10-0.60); BASOPHIL % 0.3 % (0.0-2.0); EOSINOPHIL % 2.2 % (0-5); GRANULOCYTE % 44.7 % (42.2-75.2); HEMATOCRIT 26.5 % (42-52); MEAN CORPUSCULAR HGB 34.7 PG (27.0-31.0); MEAN CORPUSCULAR HGB CONC 35.7 G/DL (33.0-37.0); MEAN CORPUSCULAR VOLUME 97.4 FL (80.0-94.0); MEAN PLATELET VOLUME 7.7 FL (7.4-10.4); PLATELET COUNT 134 /CUMM (130-400); RED BLOOD CELL CT 2.72 /CUMM (4.70-6.10)
[2018-06-19] MEDS ORDERED: AUGMENTIN 500-1 EACH PO ×2 (08:57→09:51)
[2018-06-19] MEDS ORDERED: DOCUSATE SODIU100 M3 PO (09:53)
[2018-06-19] MEDS ORDERED: MIRALAX119 GM PO (09:53)
[2018-06-19] MEDS ORDERED: SODIUM BICARBO650 M1 PO (09:53)
[2018-06-19 10:20] LABS: WHITE BLOOD CELL COUNT 7.7 /CUMM (4.8-10.8)
--- NOTE | 2018-06-19 11:22 | PN- Nephrology ---
Assessment/Plan Nephrology Assessment: Stage IV CKD - Baseline SCr around 4 - significant comorbidities including HIV on ART, Hep C s/p Harvonic, neurogenic bladder, with recurrent bouts of ABDIRASHID - Approaching ESRD - will need outpatient follow-up to discuss options (actively infected - cannot place permanent access during this admission). Hydronephrosis - s/p perc nephrostomy tube placement. Does appear to be having some leakage around the tube. IR contacted. ABDIRASHID - Improved. SCr bump in the last day may have been from significant post- obstructive diuresis. Clinically dry. Should get some additional IVF. Met acidosis - On supplementatal sodium bicarb. Hyperphos - Improved on sevelamer. Hypocalcemia - Improved on calcitriol. Anemia - Iron stores borderline. Doing OK on Epogen. Suggestion: -Would give 1L LR (I will order) -IR Eval -Cont remaining therapy If issues with nephrostomy resolve, would be reasonable for discharge with plans to f/u with me on 06/29 - will need labs including BMP, CBC prior to visit. Pt has an appt to see me at [address] in [place] on 06/29 at 10:15am Please call [phone] with ?'s Subjective Subjective: SCr 4.7->5.1 Bicarb stable at 16 4.3L UOP yesterday - c/o dry mouth Perc nephrostomy placed on 06/17 Noted to have swelling/leakage around the catheter Objective Vital Signs and I&Os Vital Signs Date Time Temp Pulse Resp B/P B/P Pulse O2 O2 Flow FiO2 Mean Ox Delivery Rate 06/19 0212 80 16 100/60 96 Room Air 06/18 2200 98.4 78 20 130/88 96 Room Air 06/18 1422 98.2 74 16 103/58 97 Room Air Intake & Output 06/19 1600 06/19 0400 06/18 1600 06/18 0400 06/17 1600 06/17 0400 Intake Total 221 901 4781 150 1145 500 Output Total 1500 2500 6667 936 2423 1525 Balance -1140 -2380 -600 -675 -905 -1025 Intake, IV 750 150 845 150 Intake, Oral 360 120 480 300 350 Number 1 0 1 Bowel Movements Output, Urine 1500 2500 8093 802 6421 1525 Patient 190 lb 187 lb 193 lb Weight Weight Bed scale Measurement Method Physical Exam: Gen - ok appearing HEENT - supple CV - RRR, no m/r/g Chest - clear, no w/r/r Abd - soft, NTND Back - R sided nephrostomy with subcutaneous edema Ext - no edema Neuro - AOX3, grossly nonfocal Current Medications: Current Medications Sig/Puma Start time Last Medication Dose Route Stop Time Status Admin Abacavir Sulfate 300 MG DAILY 06/17 900 AC 06/19 PO 0814 Acetaminophen 650 MG Q6P PRN 06/16 1315 AC PO Alprazolam 0.5 MG TID 06/16 1400 AC 06/19 PO 06/23 1359 0814 Amoxicillin/ 500 MG Q12 06/19 09 AC 06/19 Clavulanate Potassium PO 1016 Bisacodyl 10 MG DAILY 06/17 900 AC NJ Calcitriol 0.25 MCG DAILY 06/17 900 AC 06/19 PO 0815 Ciprofloxacin 500 MG Q18H 06/19 0900 CAN PO 06/23 0859 Ciprofloxacin 500 MG Q18H 06/18 1830 DC PO 06/22 1829 Chunky Butter/Shark 1 DEDRICK Q6-PRN PRN 06/16 1330 AC Liver Oil TOP Docusate Sodium 100 MG DAILY 06/17 09 AC 06/19 PO 0817 Docusate Sodium 100 MG DAILY NEEDED PRN 06/10 1045 AC 06/19 PO 0815 Dolutegravir Sodium 50 MG DAILY 06/17 09 AC 06/19 PO 0814 Epoetin Gianni 20,000 U Q168 06/19 09 AC 06/19 SC 1025 Ergocalciferol 50,000 IU ONCE A WEEK 06/06 1000 AC 06/13 PO 1004 Folic Acid 1 MG DAILY 06/17 900 AC 06/19 PO 0816 Lactulose 20 GM DAILY 06/17 09 AC 06/19 PO 0814 Multivitamins 1 TAB DAILY 06/17 900 AC 06/19 Therapeutic PO 0815 Oxycodone HCl 30 MG Q4 06/17 1000 AC 06/19 PO 1014 Oxycodone HCl 40 MG Q12 06/16 2100 AC 06/19 PO 0814 Phenyleph/Shark Oil/ 1 SUP DAILY NEEDED PRN 06/16 1330 AC Chunky Butter NJ Polyethylene Glycol 17 GM DAILY 06/17 900 AC 06/19 PO 0814 Senna 187 MG AT BEDTIME 06/16 2100 AC 06/18 PO 2130 Senna 187 MG AT BEDTIME PRN 06/10 1045 AC PO Sevelamer HCl 1,600 MG WM 06/16 1700 AC 06/19 PO 0816 Sodium Bicarbonate 1,300 MG BID 06/16 2100 AC 06/19 PO 0815 Thiamine HCl 100 MG DAILY 06/17 0900 AC 06/19 PO 0815 Trazodone HCl 200 MG QPM PRN 06/16 1330 AC PO Vitamin A/Vitamin D 1 DEDRICK BID 06/16 2100 AC 06/19 TOP 0816 Results Pertinent Lab Results: Laboratory Tests 06/19 06/18 0628 0619 Chemistry Sodium (137 - 145 mmol/L) 138 140 Potassium (3.5 - 5.1 mmol/L) 4.3 3.8 Chloride (98 - 107 mmol/L) 111 H 111 H Carbon Dioxide (22 - 30 mmol/L) 16 L 16 L Anion Gap (5 - 16) 10 13 BUN (9 - 20 mg/dL) 35 H 34 H Creatinine (0.7 - 1.2 mg/dL) 5.1 *H 4.7 H Estimated GFR (>60 ml/min) 12 L 13 L BUN/Creatinine Ratio (7 - 25 %) 6.9 L 7.2 Calcium (8.4 - 10.2 mg/dL) 8.0 L Magnesium (1.6 - 2.3 mg/dL) 2.3 Hematology CBC w Diff NO MAN DIFF REQ NO MAN DIFF REQ WBC (4.8 - 10.8 /CUMM) 7.7 5.1 RBC (4.70 - 6.10 /CUMM) 2.72 L 2.48 L Hgb (14.0 - 18.0 G/DL) 9.4 L 8.2 L Hct (42 - 52 %) 26.5 L 23.8 L MCV (80.0 - 94.0 FL) 97.4 H 96.1 H MCH (27.0 - 31.0 PG) 34.7 H 33.2 H MCHC (33.0 - 37.0 G/DL) 35.7 34.6 RDW (11.5 - 14.5 %) 19.0 H 18.8 H Plt Count (130 - 400 /CUMM) 134 117 L MPV (7.4 - 10.4 FL) 7.7 7.9 Gran % (42.2 - 75.2 %) 44.7 47.0 Lymphocytes % (20.5 - 51.1 %) 46.0 43.3 Monocytes % (1.7 - 9.3 %) 6.8 7.0 Eosinophils % (0 - 5 %) 2.2 2.1 Basophils % (0.0 - 2.0 %) 0.3 0.6 Absolute Granulocytes (1.4 - 6.5 /CUMM) 3.5 2.4 Absolute Lymphocytes (1.2 - 3.4 /CUMM) 3.6 H 2.2 Absolute Monocytes (0.10 - 0.60 /CUMM) 0.5 0.4 Absolute Eosinophils (0.0 - 0.7 /CUMM) 0.2 0.1 Absolute Basophils (0.0 - 0.2 /CUMM) 0 0 06/17 06/17 1000 0655 Chemistry Sodium (137 - 145 mmol/L) 135 L Potassium (3.5 - 5.1 mmol/L) 4.1 Chloride (98 - 107 mmol/L) 112 H Carbon Dioxide (22 - 30 mmol/L) 16 L Anion Gap (5 - 16) 8 BUN (9 - 20 mg/dL) 36 H Creatinine (0.7 - 1.2 mg/dL) 4.7 H Estimated GFR (>60 ml/min) 13 L BUN/Creatinine Ratio (7 - 25 %) 7.7 Hematology CBC w Diff NO MAN DIFF REQ WBC (4.8 - 10.8 /CUMM) 6.6 RBC (4.70 - 6.10 /CUMM) 2.35 L Hgb (14.0 - 18.0 G/DL) 8.1 L Hct (42 - 52 %) 22.7 L MCV (80.0 - 94.0 FL) 96.4 H MCH (27.0 - 31.0 PG) 34.2 H MCHC (33.0 - 37.0 G/DL) 35.5 RDW (11.5 - 14.5 %) 18.4 H Plt Count (130 - 400 /CUMM) 127 L MPV (7.4 - 10.4 FL) 8.3 Gran % (42.2 - 75.2 %) 49.6 Lymphocytes % (20.5 - 51.1 %) 43.1 Monocytes % (1.7 - 9.3 %) 5.8 Eosinophils % (0 - 5 %) 0.9 Basophils % (0.0 - 2.0 %) 0.6 Absolute Granulocytes (1.4 - 6.5 /CUMM) 3.2 Absolute Lymphocytes (1.2 - 3.4 /CUMM) 2.8 Absolute Monocytes (0.10 - 0.60 /CUMM) 0.4 Absolute Eosinophils (0.0 - 0.7 /CUMM) 0.1 Absolute Basophils (0.0 - 0.2 /CUMM) 0 Urines Urine Color (YEL,AMB,STR) YEL Urine Clarity (CLEAR) HAZY H Urine pH (5.0 - 8.0) 6.0 Ur Specific [place] (1.001 - 1.035) 1.020 Urine Protein (NEG,<30 MG/DL) 30 H Urine Ketones (NEG) NEG Urine Nitrite (NEG) POS H Urine Bilirubin (NEG) NEG Urine Urobilinogen (0.1 - 1.0 EU/dl) 0.2 Ur Leukocyte Esterase (NEG) LARGE H Ur Microscopic SEDIMENT EXAMINED Urine RBC (0 - 5 /HPF) 15-25 H Urine WBC (0 - 2 /HPF) PACKD H Ur Epithelial Cells (NONE,FEW) FEW Urine Bacteria (NEG/NONE) MOD H Urine Hemoglobin (NEG) LARGE H Urine Glucose (N MG/DL) 500 H Imaging/Other Studies: None new
--- NOTE | 2018-06-19 15:10 | INTERVENTIONAL RADIOLOGY RPT ---
EXAMINATION: FLUOROSCOPY NEPHROSTOGRAM AND NEPHROSTOMY TUBE CHANGE CLINICAL INFORMATION: 58-year-old male with indwelling right percutaneous nephrostomy tube. There is leakage around the tube. Concern for tube malpositioning. INTERVENTIONAL RADIOLOGIST: Philip Kitchen M.D. MEDICATION: -50 mcg of fentanyl was administered intravenously by dedicated radiology nurse under my direct supervision. - 1% local lidocaine was also administered. FLUOROSCOPY TIME: 2 minutes and 37 seconds DOSE AREA PRODUCT: 19.9 Gy-cm2 (bender-centimeter squared) CONTRAST: 15 mL Optiray 320 COMPARISON: Nephrostomy tube placement 06/17/2018 TECHNIQUE: Informed consent was obtained from the patient prior to the procedure. During this process, the procedure and potential alternatives were explained along with the intended outcome and benefits. The risks of the procedure including the possibility of an unsuccessful procedure, as well as the risk of not doing the procedure were discussed. The patient was given the opportunity to ask questions regarding the procedure and appear competent he decisions. A signed consent form was document this discussion was placed in the medical record. A time out procedure was performed. Following informed consent, the patient was placed prone on the fluoroscopic table. The existing nephrostomy tube was prepped and draped in usual sterile fashion. Contrast injection resulted in faint opacification of the renal pelvis. There was also reflux of contrast alongside the tube external to the patient. The tube was cut and a stiff Glidewire advanced through the existing catheter. The tube was redirected into the renal pelvis. The wire was coiled and advanced down the proximal ureter. The old catheter was removed over the wire and a new 8.5 Lao pigtail catheter was advanced over the wire. The pigtail was formed within the renal pelvis. Contrast injection verified optimal positioning. The catheter was sutured and secured into position. A sterile dressing was placed. The patient tolerated the procedure well and was discharged from the department in good condition with instructions. IMPRESSION: Successful [id number] exchange for new right sided 8.5 Lao nephrostomy tube. PLAN: Patient scheduled for 3 months routine exchange.
[2018-06-19 15:52] VITALS: BP 108/62
[2018-06-19 22:47] VITALS: BP 94/50
[2018-06-20 05:58] VITALS: BP 112/70
[2018-06-20 08:27] LABS: ABSOLUTE BASOPHIL COUNT 0 /CUMM (0.0-0.2); ABSOLUTE EOSINOPHIL COUNT 0.1 /CUMM (0.0-0.7); ABSOLUTE GRANULOCYTE CT 3.1 /CUMM (1.4-6.5); ABSOLUTE LYMPH COUNT 2.3 /CUMM (1.2-3.4); ABSOLUTE MONOCYTE COUNT 0.4 /CUMM (0.10-0.60); BASOPHIL % 0.4 % (0.0-2.0); EOSINOPHIL % 1.7 % (0-5); GRANULOCYTE % 51.5 % (42.2-75.2); HEMATOCRIT 25.5 % (42-52); MEAN CORPUSCULAR HGB 34.2 PG (27.0-31.0); MEAN CORPUSCULAR HGB CONC 35.2 G/DL (33.0-37.0); MEAN CORPUSCULAR VOLUME 97.2 FL (80.0-94.0); MEAN PLATELET VOLUME 7.8 FL (7.4-10.4); PLATELET COUNT 110 /CUMM (130-400); RBC DISTRIBUTION WIDTH 19.3 % (11.5-14.5); RED BLOOD CELL CT 2.62 /CUMM (4.70-6.10); WHITE BLOOD CELL COUNT 5.9 /CUMM (4.8-10.8)
--- NOTE | 2018-06-20 08:40 | PN- Housestaff ---
Kel Renner 06/20/18 0840: Subjective Follow-up For: Hydronephrosis Subjective: Afebrile overnight. Patient is seen and examined this morning. Patient states he is feeling a little better today after his repeat Nephrostomy tube placement yesterday. Patient states he had no drainage from the incision site and states his pain has improved to 6 out of 10 today. Patient is concerned about how long he will need his nephrostomy tube to be in place, and therefore will follow up with Nephrology and Urology as an outpatient to address further management of his nephrostomy tube. Review of Systems Constitutional: Reports: see HPI. Objective Last 24 Hrs of Vital Signs/I&O Vital Signs Date Time Temp Pulse Resp B/P B/P Pulse O2 O2 Flow FiO2 Mean Ox Delivery Rate 06/20 0558 97.4 71 20 112/70 94 Room Air 06/19 2247 99.5 64 18 94/50 93 Room Air 06/19 2101 Room Air 06/19 1552 97.6 80 16 108/62 97 Room Air 06/19 1134 Room Air Intake & Output 06/20 1600 06/20 0800 06/20 0000 Intake Total 840 480 Output Total 500 1050 Balance 340 -570 Intake, IV 600 Intake, Oral 240 480 Output, Urine 500 1050 Patient 187 lb Weight Physical Exam General Appearance: Alert, Oriented X3, Cooperative Skin: No Rashes Skin Temp/Moisture Exam: Warm/Dry HEENT: Atraumatic Neck: Supple, No JVD Cardiovascular: Regular Rate, Normal S1, Normal S2 Lungs: Normal Air Movement Neurological: Normal Speech Extremities: right-sided nephrostomy Assessment/Plan Assessment: PERCUTANEOUS NEPHROSTOMY - IMPRESSION: Successful [id number] exchange for new right sided 8.5 Turkish nephrostomy tube. PLAN: Patient scheduled for 3 months routine exchange. 58-year-old male with past medical history of HIV on HAART, hepatitis C virus s/ p Harvoni, CKD, neurogenic bladder and intermittent self-cath with BL Cr around 2.5, status post fusion surgery, left BKA for MRSA osteomyelitis initially placed in observation for left pubic ramus fracture and acute on chronic kidney injury who had a rapid response for myoclonic jerks 2/2 tetany from hypocalcemia due to severe metabolic derangements 2/2 renal failure due to obstructive uropathy. He was subsequently transferred to telemetry for further managemet of his ABDIRASHID on CKD. Patient admitted to telemetry for the following reasons: 1. Obstructive uropathy with acute on chronic kidney failure: He went for cysto and stent placement yesterday unfortuntely it was unsusccessful. Per urologist note the narrowing was unable to be bypassed; c/o malignancy?? As such pt is going to be evaluated by IR for perc nephrostomy today. Per urology note there is c/o cystitis and given his immune status and procedure planned today will give one dose of ceftriaxone prior to procedure. I obtained UA prior to procedure so we will follow up. UCX done yesterday -F/U UA and UCX; Urine culture grew E.Coli and will treat with Augmentin 875 mg q12 h -Re-eval for continuation of antibiotics -Straight cathing at this time -Con't EPO/sevalemer/Calcitriol -Eval by IR today -Per urology, pt will require outpt cysto and biopsy after the IR procedure. Unsure for when this might be planned. -Per nephro pt will undergo vascular evaluation for dialysis fistula placement -Successful placement of right-sided percutaneous nephrostomy catheter on ; patient had reevaluation of his Nephrostomy tube on 06/19 due to some leakage around the incision site; patient had a new nephrostomy tube placed on 06/19/18 -Pt. had some leakage from his neprostomy site, Urology will follow up to reassess placement -Pt. will follow up with Nephrology, Urology, and his PCP as an outpatient 2. Stercoral colitis: Pt c/o pain due to hemorrhoids and constipation. -Continue Bowel REG -Prep H -tap water enema 3. Right pubic ramus fracture: Conservative mgmt -Current pain regimen being mindful of his constipation 5. HIV: Last CD4 196; Undetectable viral load. He usually goes [facility]. He currently has pancytopenia. -Con't Dolutegravir -Con't Abacavir -Monitor CBC -Given his low CD4 there is consdieration for PCP ppx. However given his renal function hesitant to start Bactrim. Will con't monitor off ppx at this time. Upon d/c will need to re-evaluate 6) Pancytopenia: stable. Likely 2/2 Hep C/HIV and CKD. His cytopenias have all overall improved -Continue procrit 7) Hx Hep C s/p harvoni and Cirrhosis: -Avoid liver toxins 8) Anxiety: -Continue Xanax Code Status: Full Code Renal Dialysis Diet Problem List: 1. Hydronephrosis Pain Ratin Pain Location: location at right sided nephrostomy site Pain Goal: Pain 4 or less Pain Plan: prn meds Tomorrow's Labs & Rationales: routine
[2018-06-20 14:25] VITALS: BP 112/70
[2018-06-20] MEDS ORDERED: RENAGEL800 M1 PO (14:30)
== END 2018-06-20 14:30 | DRG 693 ==
LOC: ERH 13:51 → ERHI 21:08 → 2NA 21:08 → ENRESERV 22:11 → ENTRNSPT 22:55 → 2NA 23:27 → CMPTRNSPT 06-03 07:01 → 2NA 06-03 07:28 → CRI 06-03 16:22 → 1NO 06-03 16:22 → CRI 06-03 16:32 → ENTRNSPT 06-07 13:38 → 1NO 06-07 14:14 → CMPTRNSPT 06-07 14:18 → 1NO 06-08 19:58 → ENTRNSPT 06-16 11:34 → EDTRNSPTSTS 06-16 11:41 → CMPTRNSPT 06-16 11:51 → 1NO 06-20 14:30
PROVIDERS: Internal Medicine; Physical Medicine & Rehabilitation; Student in an Organized Health Care Education/Training Program
PROC: 0TJB8ZZ Inspection of Bladder, Via Natural or Artificial Opening Endoscopic (ICD-10-PCS; principal; 2018-06-16)
PROC: 0T9330Z Drainage of Right Kidney Pelvis with Drainage Device, Percutaneous Approach (ICD-10-PCS; 2018-06-17)
DX: N13.1 Hydronephrosis with ureteral stricture, not elsewhere classified (principal); B20 Human immunodeficiency virus [HIV] disease; S32.591A Other specified fracture of right pubis, initial encounter for closed fracture; E87.2 Acidosis; D61.818 Other pancytopenia; N17.9 Acute kidney failure, unspecified; N18.5 Chronic kidney disease, stage 5; N31.9 Neuromuscular dysfunction of bladder, unspecified; M54.5 Low back pain; G89.29 Other chronic pain; F41.9 Anxiety disorder, unspecified; J45.909 Unspecified asthma, uncomplicated; W19.XXXA Unspecified fall, initial encounter; Y92.9 Unspecified place or not applicable; B18.2 Chronic viral hepatitis C; E83.39 Other disorders of phosphorus metabolism; I95.9 Hypotension, unspecified; E83.51 Hypocalcemia; D63.1 Anemia in chronic kidney disease; K52.89 Other specified noninfective gastroenteritis and colitis; N30.90 Cystitis, unspecified without hematuria; G25.3 Myoclonus; K59.00 Constipation, unspecified; K64.9 Unspecified hemorrhoids; D69.6 Thrombocytopenia, unspecified; Z98.1 Arthrodesis status; Z86.14 Personal history of Methicillin resistant Staphylococcus aureus infection; Z88.1 Allergy status to other antibiotic agents; Z89.512 Acquired absence of left leg below knee; Z87.891 Personal history of nicotine dependence
CPT/HCPCS: 1NP; 84133; 84300; 86160; 86359; CCU; 36415; 36592; 71045; 71046; 73502-RT; 74022; 74176; 74425; 76000; 76775; 77001; 80307; 81001; 82436; 82570; 84165; 84166; 86803; 87040; 87070; 87086; 87536; 93005; 93010; 95816; 97110-GO; 97161-GP; 97530-GO; C1769; J0131; J0610; J0690; J0696; J0885-EC; J1644; J2001; J3490; J7042; J7060; J7120; P9047